=== PATIENT | male | born 1955 | race Caucasian/White ===

== ENCOUNTER → 2018-03-27 10:43 | Outpatient (CLI) | payer MEDICARE, MEDICAID, SELFPAY ==
[2018-03-27 12:56] LABS: Eosinophil# 0.27 X10^3/uL; RBC Distribution Width CV 12.7 % (11.6-14.6); RBC Distribution Width SD 40.5 fl (35.1-43.9)
[2018-03-27 12:57] LABS: Absolute Lymphocyte Count 2.68 X10^3/ul (0.83-4.51); Absolute Neutrophil Count 4.8 X10^3/uL (2.0-7.7); Basophil# 0.04 X10^3/uL; Basophil% 0.5 % (0-1); Eosinophils% 3.1 % (0-5); Hematocrit 46.2 % (40-54); Hemoglobin 15.5 g/dl (13.0-16.5); Lymphocyte # 2.68 X10^3/ul (4.0); Lymphocyte % 30.8 % (19-41); Mean Corp Hgb Conc 33.5 g/gl (32-36); Mean Corpuscular Hgb 29.1 pg (27.0-32.0); Mean Corpuscular Volume 86.8 fL (80-94); Mean Platelet Vol. 9.6 fl (6.2-12.0); Monocyte# 0.91 X10^3/uL; Monocyte% 10.5 % (0-10); Neutrophil # 4.75 X10^3/uL (2.7-7.7); Neutrophil % 54.6 % (47-70); POSITIVE COUNT NO; POSITIVE DIFFERENTIAL NO; POSITIVE MORPHOLOGY NO; Platelet Count 243 K/mm3 (150-450); Red Blood Count 5.32 M/mm3 (4.6-6.2); White Blood Count 8.7 K/mm3 (4.4-11.0)
[2018-03-27 13:22] LABS: ALB/GLOB Ratio 0.8 RATIO (0.9-2.4); AST(SGOT) 19 U/L (15-37); Alanine Aminotransfer ALT/SGPT 46 U/L (16-61); Albumin, Serum 3.5 g/dL (3.2-5.0); Alkaline Phosphatase 118 U/L (45-117); Anion Gap 8 (5-15); BUN 17 mg/dL (7-18); BUN/Creat Ratio 17.6 RATIO (10-20); Calcium,Total 8.8 mg/dL (8.5-10.1); Chloride 105 mmol/L (98-107); Creatinine, Serum 0.97 mg/dL (0.70-1.30); EST Glomerular Filtration Rate 83 mL/min (>60); Est Glom Filt Rate - Afr Amer 100 mL/min (>60); Globulin 4.3 g/dL (2.2-4.2); Glucose 189 mg/dL (74-106); PSA,Total - Annual Screen 0.55 ng/mL (0.00-4.00); Potassium 4.6 mmol/L (3.5-5.1); Protein, Total 7.8 g/dL (6.4-8.2); Sodium Level 136 mmol/L (136-145); Thyroid Stim Hormone (TSH) 3.61 uIU/mL (0.358-3.74)
[2018-03-27 16:58] LABS: Hemoglobin A1c 7.7 % (4.2-6.3)
== END ==
PROVIDERS: Family Provider Family Medicine Geriatric Medicine; PCP Family Medicine Geriatric Medicine; Visit Provider Family Medicine Geriatric Medicine
DX: E88.81 Metabolic syndrome and other insulin resistance (principal); R53.83 Other fatigue; Z12.5 Encounter for screening for malignant neoplasm of prostate
CPT/HCPCS: 36415; 80053; 83036; 84153; 84443; 85025; G0103

== ENCOUNTER 2018-05-23 09:54 | Outpatient (RCR) | payer MEDICARE, MEDICAID, SELFPAY | END 2018-05-23 23:59 | LOC: DC 09:54 | PROVIDERS: Family Provider Family Medicine Geriatric Medicine; PCP Family Medicine Geriatric Medicine; Visit Provider Family Medicine Geriatric Medicine | DX: E11.65 Type 2 diabetes mellitus with hyperglycemia (principal) | CPT/HCPCS: 97802 ==

== ENCOUNTER 2018-06-06 10:47 | Outpatient (RCR) | payer MEDICARE, MEDICAID, SELFPAY | END 2018-06-06 23:59 | disposition home or self-care (01) | LOC: DC 10:47 | PROVIDERS: Family Provider Family Medicine Geriatric Medicine; PCP Family Medicine Geriatric Medicine; Visit Provider Family Medicine Geriatric Medicine | DX: E11.65 Type 2 diabetes mellitus with hyperglycemia (principal); Z71.3 Dietary counseling and surveillance | CPT/HCPCS: G0108 ==

== ENCOUNTER → 2018-06-27 11:57 | Outpatient (CLI) | payer MEDICARE, MEDICAID, SELFPAY ==
[2018-06-27 14:29] LABS: Absolute Neutrophil Count 4.2 X10^3/uL (2.0-7.7); Basophil# 0.06 X10^3/uL; Basophil% 0.6 % (0-1); Eosinophil# 0.34 X10^3/uL; Eosinophils% 3.5 % (0-5); Hematocrit 44.6 % (40-54); Lymphocyte % 40.9 % (19-41); Mean Corp Hgb Conc 33.6 g/gl (32-36); Mean Corpuscular Hgb 29.5 pg (27.0-32.0); Mean Corpuscular Volume 87.6 fL (80-94); Mean Platelet Vol. 9.7 fl (6.2-12.0); Monocyte# 1.11 X10^3/uL; Monocyte% 11.4 % (0-10); Neutrophil # 4.23 X10^3/uL (2.7-7.7); Neutrophil % 43.3 % (47-70); Platelet Count 264 K/mm3 (150-450); RBC Distribution Width CV 12.8 % (11.6-14.6); RBC Distribution Width SD 41.3 fl (35.1-43.9); Red Blood Count 5.09 M/mm3 (4.6-6.2); White Blood Count 9.8 K/mm3 (4.4-11.0)
[2018-06-27 14:30] LABS: POSITIVE COUNT NO; POSITIVE DIFFERENTIAL NO; POSITIVE MORPHOLOGY NO
[2018-06-27 15:03] LABS: ALB/GLOB Ratio 0.9 RATIO (0.9-2.4); AST(SGOT) 24 U/L (15-37); Alanine Aminotransfer ALT/SGPT 42 U/L (16-61); Albumin, Serum 3.6 g/dL (3.2-5.0); Alkaline Phosphatase 101 U/L (45-117); Anion Gap 9 (5-15); BUN 16 mg/dL (7-18); BUN/Creat Ratio 16.5 RATIO (10-20); Calcium,Total 8.8 mg/dL (8.5-10.1); Chloride 105 mmol/L (98-107); Creatinine, Serum 0.97 mg/dL (0.70-1.30); EST Glomerular Filtration Rate 83 mL/min (>60); Est Glom Filt Rate - Afr Amer 100 mL/min (>60); Globulin 3.9 g/dL (2.2-4.2); Glucose 87 mg/dL (74-106); Potassium 4.4 mmol/L (3.5-5.1); Protein, Total 7.5 g/dL (6.4-8.2); Sodium Level 140 mmol/L (136-145)
== END ==
PROVIDERS: Family Provider Family Medicine Geriatric Medicine; PCP Family Medicine Geriatric Medicine; Visit Provider Family Medicine Geriatric Medicine
DX: R53.83 Other fatigue (principal)
CPT/HCPCS: 36415; 80053; 84443; 85025

== ENCOUNTER → 2018-08-20 10:20 | Outpatient (CLI) | payer MEDICARE, MEDICAID, SELFPAY ==
[2018-08-20 13:12] LABS: Thyroid Stim Hormone (TSH) 3.32 uIU/mL (0.358-3.74)
== END ==
PROVIDERS: Family Provider Family Medicine Geriatric Medicine; PCP Family Medicine Geriatric Medicine; Visit Provider Family Medicine Geriatric Medicine
DX: E03.9 Hypothyroidism, unspecified (principal)
CPT/HCPCS: 36415; 84443

== ENCOUNTER → 2018-09-30 10:11 | Outpatient (CLI) | payer MEDICARE, MEDICAID, SELFPAY ==
[2018-09-30 12:23] LABS: Absolute Lymphocyte Count 2.43 X10^3/ul (0.83-4.51); Absolute Neutrophil Count 4.7 X10^3/uL (2.0-7.7); Basophil# 0.05 X10^3/uL; Basophil% 0.6 % (0-1); Eosinophil# 0.24 X10^3/uL; Eosinophils% 2.8 % (0-5); Hematocrit 45.6 % (40-54); Hemoglobin 15.3 g/dl (13.0-16.5); Lymphocyte # 2.43 X10^3/ul (4.0); Lymphocyte % 28.3 % (19-41); Mean Corp Hgb Conc 33.6 g/gl (32-36); Mean Corpuscular Hgb 28.5 pg (27.0-32.0); Mean Corpuscular Volume 84.9 fL (80-94); Monocyte% 12.8 % (0-10); Neutrophil # 4.73 X10^3/uL (2.7-7.7); Neutrophil % 55.2 % (47-70); Platelet Count 261 K/mm3 (150-450); RBC Distribution Width CV 12.8 % (11.6-14.6); RBC Distribution Width SD 39.4 fl (35.1-43.9); Red Blood Count 5.37 M/mm3 (4.6-6.2); White Blood Count 8.6 K/mm3 (4.4-11.0)
[2018-09-30 12:33] LABS: POSITIVE COUNT NO; POSITIVE DIFFERENTIAL NO; POSITIVE MORPHOLOGY NO
[2018-09-30 12:54] LABS: ALB/GLOB Ratio 0.8 RATIO (0.9-2.4); AST(SGOT) 20 U/L (15-37); Alanine Aminotransfer ALT/SGPT 49 U/L (16-61); Albumin, Serum 3.3 g/dL (3.2-5.0); Alkaline Phosphatase 121 U/L (45-117); Anion Gap 8 (5-15); BUN 16 mg/dL (7-18); BUN/Creat Ratio 15.2 RATIO (10-20); Chloride 103 mmol/L (98-107); Creatinine, Serum 1.05 mg/dL (0.70-1.30); EST Glomerular Filtration Rate 75 mL/min (>60); Est Glom Filt Rate - Afr Amer 91 mL/min (>60); Glucose 181 mg/dL (74-106); Potassium 4.3 mmol/L (3.5-5.1); Protein, Total 7.3 g/dL (6.4-8.2); Sodium Level 137 mmol/L (136-145); Thyroid Stim Hormone (TSH) 4.29 uIU/mL (0.358-3.74)
== END ==
PROVIDERS: Family Provider Family Medicine Geriatric Medicine; PCP Family Medicine Geriatric Medicine; Visit Provider Family Medicine Geriatric Medicine
DX: E11.65 Type 2 diabetes mellitus with hyperglycemia (principal); R53.83 Other fatigue
CPT/HCPCS: 36415; 80053; 84443; 85025

== ENCOUNTER → 2018-11-14 09:34 | Outpatient (CLI) | payer MEDICARE, MEDICAID, SELFPAY ==
[2018-11-14 12:57] LABS: Thyroid Stim Hormone (TSH) 2.62 uIU/mL (0.358-3.74)
== END ==
PROVIDERS: Family Provider Family Medicine Geriatric Medicine; PCP Family Medicine Geriatric Medicine; Visit Provider Family Medicine Geriatric Medicine
DX: E03.9 Hypothyroidism, unspecified (principal)
CPT/HCPCS: 36415; 84443

== ENCOUNTER → 2019-01-27 09:41 | Outpatient (CLI) | payer MEDICARE, MEDICAID, SELFPAY ==
--- NOTE | 2019-01-27 09:55 | RAD_ITS ---
HISTORY: Fecal impaction. Abdominal distention. 3 views of the abdomen. No comparison imaging of any kind. Findings: Bowel gas pattern is normal. There is some stool and gas within the abdomen, but it is well within normal limits. Stomach is distended slightly with gas. Lung bases are clear. Thoracic spondylosis. Lumbar spondylosis. Hip arthritis. No free air. No pneumatosis. RAD/Abdomen Single View IMPRESSION: No fecal impaction. No evidence of constipation. at [id number] Reported and signed by: Masoud Recinos MD Electronically Signed: Masoud Recinos MD at 23:34 EST Tel , Service support ,
== END ==
PROVIDERS: Family Provider Family Medicine Geriatric Medicine; PCP Family Medicine Geriatric Medicine; Referring Provider Family Medicine Geriatric Medicine; Visit Provider Family Medicine Geriatric Medicine
DX: K56.41 Fecal impaction (principal); B95.62 Methicillin resistant Staphylococcus aureus infection as the cause of diseases classified elsewhere
CPT/HCPCS: 74018; 87070; 87186; 87205; 87640

== ENCOUNTER → 2019-01-27 17:02 | Outpatient (CLI) | payer MEDICARE, MEDICAID, SELFPAY ==
[2019-01-27 22:38] LABS: M R Staph aureus DNA By PCR Negative (Negative); Probe Check PASS; Specimen Processing Control PASS; Staph aureus DNA By PCR NEGATIVE (Negative)
== END ==
PROVIDERS: Family Provider Family Medicine Geriatric Medicine; PCP Family Medicine Geriatric Medicine; Visit Provider Family Medicine Geriatric Medicine
DX: B95.62 Methicillin resistant Staphylococcus aureus infection as the cause of diseases classified elsewhere (principal)
CPT/HCPCS: 87070; 87205; 87640

== ENCOUNTER → 2019-04-03 11:05 | Outpatient (CLI) | payer MEDICARE, MEDICAID, SELFPAY ==
[2019-04-03 12:46] LABS: Absolute Lymphocyte Count 2.68 X10^3/uL (0.83-4.51); Basophil# 0.06 X10^3/uL; Basophil% 0.7 % (0-1); Eosinophil# 0.27 X10^3/uL; Hematocrit 44.5 % (40-54); Lymphocyte # 2.68 X10^3/ul (4.0); Lymphocyte % 30.1 % (19-41); Mean Corp Hgb Conc 33.7 g/dL (32-36); Mean Corpuscular Hgb 28.6 pg (27.0-32.0); Mean Corpuscular Volume 84.8 fL (80-94); Mean Platelet Vol. 9.3 fl (6.2-12.0); Monocyte# 0.89 X10^3/uL; NRBC Flagged by Analyzer 0 % (0-5); Neutrophil # 4.97 X10^3/uL (2.7-7.7); Platelet Count 297 K/mm3 (150-450); RBC Distribution Width CV 12.2 % (11.6-14.6); RBC Distribution Width SD 37.2 fl (35.1-43.9); Red Blood Count 5.25 M/mm3 (4.6-6.2); White Blood Count 8.9 K/mm3 (4.4-11.0)
[2019-04-03 12:56] LABS: Vitamin D,25 Hydroxy 28.8 ng/mL (29.95-100.01)
[2019-04-03 13:01] LABS: ALB/GLOB Ratio 0.9 RATIO (0.9-2.4); AST(SGOT) 14 U/L (15-37); Alanine Aminotransfer ALT/SGPT 43 U/L (16-61); Albumin, Serum 3.6 g/dL (3.2-5.0); Alkaline Phosphatase 91 U/L (45-117); Anion Gap 6 (5-15); BUN 13 mg/dL (7-18); BUN/Creat Ratio 13.2 RATIO (10-20); Chloride 97 mmol/L (98-107); Creatinine, Serum 0.98 mg/dL (0.70-1.30); EST Glomerular Filtration Rate 81 mL/min (>60); Est Glom Filt Rate - Afr Amer 98 mL/min (>60); Globulin 3.9 g/dL (2.2-4.2); Glucose 144 mg/dL (74-106); PSA,Total - Annual Screen 0.85 ng/mL (0.00-4.00); Potassium 4.1 mmol/L (3.5-5.1); Protein, Total 7.5 g/dL (6.4-8.2); Sodium Level 130 mmol/L (136-145); Thyroid Stim Hormone (TSH) 2.26 uIU/mL (0.358-3.74)
== END ==
PROVIDERS: Family Provider Family Medicine Geriatric Medicine; PCP Family Medicine Geriatric Medicine; Visit Provider Family Medicine Geriatric Medicine
DX: E11.9 Type 2 diabetes mellitus without complications (principal); I10 Essential (primary) hypertension; E55.9 Vitamin D deficiency, unspecified; Z12.5 Encounter for screening for malignant neoplasm of prostate
CPT/HCPCS: 36415; 80053; 82306; 84153; 84443; 85025; G0103

== ENCOUNTER → 2019-05-19 | Outpatient (CLI) | payer MEDICARE, MEDICAID, SELFPAY ==
[2019-05-19 20:05] LABS: M R Staph aureus DNA By PCR Negative (Negative); Probe Check PASS; Specimen Processing Control PASS; Staph aureus DNA By PCR NEGATIVE (Negative)
== END | disposition home or self-care (01) ==
PROVIDERS: PCP Family Medicine Geriatric Medicine; Referring Provider Podiatrist; Visit Provider Podiatrist
DX: L60.0 Ingrowing nail (principal)
CPT/HCPCS: 87070; 87075; 87077; 87186; 87205; 87640

== ENCOUNTER → 2019-10-02 08:57 | Outpatient (CLI) | payer MEDICARE, MEDICAID, SELFPAY ==
[2019-10-02 12:02] LABS: Absolute Lymphocyte Count 2.66 X10^3/uL (0.83-4.51); Absolute Neutrophil Count 6.7 X10^3/uL (2.0-7.7); Basophil# 0.07 X10^3/uL; Basophil% 0.7 % (0-1); Eosinophil# 0.25 X10^3/uL; Eosinophils% 2.4 % (0-5); Hematocrit 46.2 % (40-54); Hemoglobin 15.2 g/dL (13.0-16.5); Lymphocyte # 2.66 X10^3/ul (4.0); Lymphocyte % 25.1 % (19-41); Mean Corp Hgb Conc 32.9 g/dL (32-36); Mean Corpuscular Hgb 28.9 pg (27.0-32.0); Mean Corpuscular Volume 87.8 fL (80-94); Mean Platelet Vol. 9.3 fl (6.2-12.0); Monocyte# 0.91 X10^3/uL; Monocyte% 8.6 % (0-10); NRBC Flagged by Analyzer 0 % (0-5); Neutrophil # 6.65 X10^3/uL (2.7-7.7); Neutrophil % 62.7 % (47-70); Platelet Count 327 K/mm3 (150-450); RBC Distribution Width CV 12.2 % (11.6-14.6); RBC Distribution Width SD 38.9 fl (35.1-43.9); Red Blood Count 5.26 M/mm3 (4.6-6.2); White Blood Count 10.6 K/mm3 (4.4-11.0)
[2019-10-02 12:26] LABS: ALB/GLOB Ratio 0.9 RATIO (0.9-2.4); AST(SGOT) 13 U/L (15-37); Alanine Aminotransfer ALT/SGPT 34 U/L (16-61); Albumin, Serum 3.5 g/dL (3.2-5.0); Alkaline Phosphatase 90 U/L (45-117); Anion Gap 7 (5-15); BUN 14 mg/dL (7-18); BUN/Creat Ratio 13.9 RATIO (10-20); Calcium,Total 8.9 mg/dL (8.5-10.1); Chloride 99 mmol/L (98-107); Creatinine, Serum 1.01 mg/dL (0.70-1.30); EST Glomerular Filtration Rate 79 mL/min (>60); Est Glom Filt Rate - Afr Amer 95 mL/min (>60); Globulin 3.8 g/dL (2.2-4.2); Glucose 157 mg/dL (74-106); Potassium 4.1 mmol/L (3.5-5.1); Protein, Total 7.3 g/dL (6.4-8.2); Sodium Level 133 mmol/L (136-145); Thyroid Stim Hormone (TSH) 1.78 uIU/mL (0.358-3.74)
[2019-10-02 12:54] LABS: Vitamin D,25 Hydroxy 34.5 ng/mL
== END ==
PROVIDERS: PCP Family Medicine Geriatric Medicine; Visit Provider Family Medicine Geriatric Medicine
DX: E11.65 Type 2 diabetes mellitus with hyperglycemia (principal); I10 Essential (primary) hypertension; E55.9 Vitamin D deficiency, unspecified
CPT/HCPCS: 36415; 80053; 82306; 84443; 85025

== ENCOUNTER → 2019-10-22 10:29 | Outpatient (CLI) | payer MEDICARE, MEDICAID, SELFPAY ==
--- NOTE | 2019-10-22 10:33 | RAD_ITS ---
STUDY: X-RAY - ABDOMEN/PELVIS REASON FOR EXAM: Male, 64 years old. FECAL IMPACATION, DISTENTION TECHNIQUE: AP supine and upright views of the abdomen and pelvis. COMPARISON: Prior single view abdomen of 01/27/2019 FINDINGS: The stomach is nondistended. Mild increased small bowel gas. Substantial stool present throughout the colon and present to the level of the rectum. There is no demonstrated free abdominal air. Negative for organomegaly. Multiple phleboliths of the pelvis. Normal visualized osseous structures. RAD/Abd Inc Decub and/or Erect IMPRESSION: Substantial stool present throughout the colon and present to the level of the rectum without other acute abdominal or pelvic findings. Electronically Signed: Dorita Montoya MD at 17:08 EDT , Service support ,
== END ==
PROVIDERS: PCP Family Medicine Geriatric Medicine; Referring Provider Family Medicine Geriatric Medicine; Visit Provider Family Medicine Geriatric Medicine
DX: K56.41 Fecal impaction (principal)
CPT/HCPCS: 74019

== ENCOUNTER → 2019-10-30 09:52 | Outpatient (CLI) | payer MEDICARE, MEDICAID, SELFPAY ==
--- NOTE | 2019-10-30 09:56 | US_ITS ---
STUDY: ABDOMINAL ULTRASOUND - RIGHT UPPER QUADRANT REASON FOR VISIT: Male, 64 years old RUQ PAIN TECHNIQUE: Ultrasound evaluation of the right upper quadrant was performed with real-time and static robin-scale imaging. TECHNICAL QUALITY: Limited. Examination limited due to a combination of factors including obesity and bowel gas. COMPARISON: None. FINDINGS: Liver: The liver measures 17.1 cm. There is increased echogenicity consistent with mild degree of fatty infiltration. The bile ducts are within normal limits. There is hepatic color flow. The direction of portal flow is hepatopetal. There is no demonstrated mass lesion. Gallbladder: Normal distended gallbladder. The gallbladder wall measures 2.4 mm. There is a negative sonographic Theodore''s sign. There is no pericholecystic fluid. There are no gallstones. Common Bile Duct (C.B.D.): The common bile duct measures 3.1 mm. Pancreas: There is nonvisualization of the pancreas due to overlying bowel gas. Right Kidney: Normal size of the right kidney. The right kidney measures 11.5 cm x 5.6 cm x 6.9 cm. Normal renal cortex. The right cortex measures 1.2 cm. There is no demonstrated renal mass or cyst. There is no right hydronephrosis. US/Abdomen Limited IMPRESSION: Fatty infiltration of the liver. Electronically Signed: Jd Thompson, at 12:35 EDT , Service support ,
== END ==
PROVIDERS: PCP Family Medicine Geriatric Medicine; Referring Provider Family Medicine Geriatric Medicine; Visit Provider Family Medicine Geriatric Medicine
DX: R10.9 Unspecified abdominal pain (principal)
CPT/HCPCS: 76705

== ENCOUNTER → 2019-12-17 11:58 | Outpatient (CLI) | payer MEDICARE, MEDICAID, SELFPAY ==
[2019-12-02 11:09] VITALS: BMI 36.4
--- NOTE | 2019-12-17 12:10 | RAD_ITS ---
STUDY: X-RAY - ABDOMEN/PELVIS REASON FOR EXAM: Male, 64 years old. diarrhea per patient''s caregiver TECHNIQUE: AP supine and upright views of the abdomen and pelvis. COMPARISON: 10/22/2019 FINDINGS: Normal visualized lung bases. There is a small amount of gas within a redundant colon. There is no demonstrated free abdominal air. The visualized liver, spleen and kidneys are grossly normal in size and morphology. Normal soft tissue structures. There are degenerative changes of the visualized thoracolumbar spine. RAD/Abd Inc Decub and/or Erect IMPRESSION: Small amount of gas within a redundant colon. There is no evidence of ileus, obstruction, or free intraperitoneal air. Electronically Signed: Clyde London MD at 22:31 EDT , Service support ,
== END ==
PROVIDERS: PCP Family Medicine Geriatric Medicine; Referring Provider Family Medicine Geriatric Medicine; Visit Provider Family Medicine Geriatric Medicine
DX: R19.7 Diarrhea, unspecified (principal)
CPT/HCPCS: 74019

== ENCOUNTER → 2019-12-24 09:48 | Outpatient (CLI) | payer MEDICARE, MEDICAID, SELFPAY ==
[2019-12-02 11:09] VITALS: BMI 36.4
--- NOTE | 2019-12-24 09:49 | MRI_ITS ---
STUDY: MRI BRAIN WITH AND WITHOUT CONTRAST REASON FOR EXAM: Male, 64 years old. seizure -- patient is autistic, hx of seizures with no recent seizures TECHNIQUE: Standardized multiplanar fat and water weighted pulse sequences were obtained. IV dotarem 19ml was administered for the contrast portion of the examination. COMPARISON: None. FINDINGS: Normal size of the ventricles and extra-axial spaces for the patient''s age. Normal white matter tracts of the supratentorial brain. Normal bilateral basal ganglia. Normal thalami. There is no extra-axial fluid accumulation. Normal flow voids within the major intracranial circulation suggesting patency by spin echo criteria. Normal venous enhancement. There is no enhancing intra-axial or extra-axial abnormality. Normal sella turcica, pituitary gland, infundibular stalk, optic chiasm and hypothalamus. Normal tectal plate and pineal gland. Normal midbrain, mae and medulla. Normal cerebellum. Normal basal cisterns. Normal bilateral temporal bones. Normal bilateral internal auditory canals. No demonstrated orbital abnormality, within the constraints of a routine brain study. Normal visualized paranasal sinuses. Normal calvarium and skull base. Normal visualized soft tissue structures. Normal visualized upper cervical spine. MRI/Brain W/WO Contrast IMPRESSION: Normal unenhanced and enhanced MRI of the brain. Electronically Signed: Yuan Jarvis, at 12:05 EDT Tel , Service support ,
[2019-12-24 11:05] LABS: CREATININE FINGERSTICK 0.8 mg/dL (0.70-1.30); EGFR FINGERSTICK > 60.0000 mL/min (>60)
== END ==
PROVIDERS: PCP Family Medicine Geriatric Medicine; Referring Provider Psychiatry & Neurology Neurology; Visit Provider Psychiatry & Neurology Neurology
DX: G40.A09 Absence epileptic syndrome, not intractable, without status epilepticus (principal)
CPT/HCPCS: 70553; A9575

== ENCOUNTER → 2020-01-09 06:53 | Outpatient (CLI) | payer MEDICARE, MEDICAID, SELFPAY ==
[2019-12-02 11:09] VITALS: BMI 36.4
--- NOTE | 2020-01-09 10:20 | TELEMED_ITS ---
[facility] has confirmed receipt of a request for visit. This document confirms receipt of the order initiating the consult. To find the results of the consultation, please view the patient's reports for the scanned Telemed Consult.
== END ==
PROVIDERS: PCP Family Medicine Geriatric Medicine; Referring Provider Psychiatry & Neurology Neurology; Visit Provider Psychiatry & Neurology Neurology
DX: G40.909 Epilepsy, unspecified, not intractable, without status epilepticus (principal); G40.A09 Absence epileptic syndrome, not intractable, without status epilepticus
CPT/HCPCS: 95819

== ENCOUNTER → 2020-02-11 08:45 | Outpatient (CLI) | payer MEDICARE, MEDICAID, SELFPAY ==
[2020-02-11 10:47] LABS: Vitamin B12 274 pg/mL (211-911)
[2020-02-11 10:51] LABS: Anion Gap 5 (5-15); BUN 13 mg/dL (7-18); BUN/Creat Ratio 12.6 RATIO (10-20); Calcium,Total 9.5 mg/dL (8.5-10.1); Chloride 98 mmol/L (98-107); Creatinine, Serum 1.03 mg/dL (0.70-1.30); EST Glomerular Filtration Rate 77 mL/min (>60); Est Glom Filt Rate - Afr Amer 93 mL/min (>60); Glucose 123 mg/dL (74-106); Potassium 4.3 mmol/L (3.5-5.1); Sodium Level 131 mmol/L (136-145)
== END ==
PROVIDERS: PCP Family Medicine Geriatric Medicine; Referring Provider Psychiatry & Neurology Neurology; Visit Provider Psychiatry & Neurology Neurology
DX: G40.A09 Absence epileptic syndrome, not intractable, without status epilepticus (principal)
CPT/HCPCS: 36415; 80048; 80177; 80184; 82140; 82607

== ENCOUNTER → 2020-04-07 11:28 | Outpatient (CLI) | payer MEDICARE, MEDICAID, SELFPAY ==
[2020-04-07 12:13] LABS: Absolute Neutrophil Count 6.9 X10^3/uL (2.0-7.7); Basophil# 0.06 X10^3/uL; Basophil% 0.5 % (0-1); Eosinophil# 0.17 X10^3/uL; Eosinophils% 1.5 % (0-5); Hematocrit 47.8 % (40-54); Hemoglobin 15.6 g/dL (13.0-16.5); Lymphocyte % 27.4 % (19-41); Mean Corp Hgb Conc 32.6 g/dL (32-36); Mean Corpuscular Hgb 28.3 pg (27.0-32.0); Mean Corpuscular Volume 86.6 fL (80-94); Mean Platelet Vol. 9.2 fl (6.2-12.0); Monocyte# 1.12 X10^3/uL; Monocyte% 9.9 % (0-10); NRBC Flagged by Analyzer 0 % (0-5); Neutrophil # 6.85 X10^3/uL (2.7-7.7); Neutrophil % 60.4 % (47-70); Platelet Count 337 K/mm3 (150-450); RBC Distribution Width CV 12.3 % (11.6-14.6); RBC Distribution Width SD 39.4 fl (35.1-43.9); Red Blood Count 5.52 M/mm3 (4.6-6.2); White Blood Count 11.3 K/mm3 (4.4-11.0)
[2020-04-07 12:38] LABS: ALB/GLOB Ratio 0.9 RATIO (0.9-2.4); AST(SGOT) 14 U/L (15-37); Alanine Aminotransfer ALT/SGPT 37 U/L (16-61); Albumin, Serum 3.7 g/dL (3.2-5.0); Alkaline Phosphatase 106 U/L (45-117); Anion Gap 5 (5-15); BUN 11 mg/dL (7-18); Calcium,Total 8.9 mg/dL (8.5-10.1); Chloride 100 mmol/L (98-107); EST Glomerular Filtration Rate 79 mL/min (>60); Est Glom Filt Rate - Afr Amer 96 mL/min (>60); Globulin 3.9 g/dL (2.2-4.2); Glucose 106 mg/dL (74-106); PSA,Total - Annual Screen 0.77 ng/mL (0.00-4.00); Protein, Total 7.6 g/dL (6.4-8.2); Sodium Level 134 mmol/L (136-145); Thyroid Stim Hormone (TSH) 2.44 uIU/mL (0.358-3.74)
[2020-04-07 12:48] LABS: Vitamin D,25 Hydroxy 20.4 ng/mL
== END ==
PROVIDERS: PCP Family Medicine Geriatric Medicine; Visit Provider Family Medicine Geriatric Medicine
DX: E11.9 Type 2 diabetes mellitus without complications (principal); I10 Essential (primary) hypertension; E55.9 Vitamin D deficiency, unspecified; Z12.5 Encounter for screening for malignant neoplasm of prostate
CPT/HCPCS: 36415; 80053; 82306; 84153; 84443; 85025; G0103

== ENCOUNTER → 2020-05-18 08:34 | Outpatient (CLI) | payer MEDICARE, MEDICAID, SELFPAY ==
[2020-05-18 10:28] LABS: Vitamin B12 466 pg/mL (211-911)
== END ==
PROVIDERS: PCP Family Medicine Geriatric Medicine; Referring Provider Psychiatry & Neurology Neurology; Visit Provider Psychiatry & Neurology Neurology
DX: G40.909 Epilepsy, unspecified, not intractable, without status epilepticus (principal)
CPT/HCPCS: 36415; 82607

== ENCOUNTER → 2020-09-16 07:15 | Outpatient (CLI) | payer MEDICARE, MEDICAID, SELFPAY ==
[2020-08-03 13:22] VITALS: BMI 36.4
[2020-09-19 08:20] LABS: KEPPRA (LEVETIRACETAM) 13.6 ug/mL (10.0-40.0)
== END ==
PROVIDERS: PCP Family Medicine Geriatric Medicine; Referring Provider Psychiatry & Neurology Neurology; Visit Provider Psychiatry & Neurology Neurology
DX: G40.909 Epilepsy, unspecified, not intractable, without status epilepticus (principal)
CPT/HCPCS: 36415; 80177; 80184

== ENCOUNTER → 2020-10-13 11:09 | Outpatient (CLI) | payer MEDICARE, MEDICAID, SELFPAY ==
[2020-08-03 13:22] VITALS: BMI 36.4
[2020-10-13 11:55] LABS: Absolute Lymphocyte Count 2.76 X10^3/uL (0.83-4.51); Absolute Neutrophil Count 6.6 X10^3/uL (2.0-7.7); Basophil# 0.06 X10^3/uL; Basophil% 0.6 % (0-1); Eosinophil# 0.27 X10^3/uL; Eosinophils% 2.5 % (0-5); Hematocrit 46.2 % (40-54); Hemoglobin 15.7 g/dL (13.0-16.5); Lymphocyte # 2.76 X10^3/ul (0.83-4.51); Lymphocyte % 25.6 % (19-41); Mean Corpuscular Hgb 29.3 pg (27.0-32.0); Mean Corpuscular Volume 86.2 fL (80-94); Mean Platelet Vol. 9.2 fl (6.2-12.0); Monocyte# 1.03 X10^3/uL; Monocyte% 9.5 % (0-10); NRBC Flagged by Analyzer 0 % (0-5); Neutrophil # 6.63 X10^3/uL (2.7-7.7); Neutrophil % 61.4 % (47-70); Platelet Count 360 K/mm3 (150-450); RBC Distribution Width CV 12.1 % (11.6-14.6); RBC Distribution Width SD 38.2 fl (35.1-43.9); Red Blood Count 5.36 M/mm3 (4.6-6.2); White Blood Count 10.8 K/mm3 (4.4-11.0)
[2020-10-13 12:10] LABS: Vitamin D,25 Hydroxy 82.4 ng/mL
[2020-10-13 12:22] LABS: BUN 10 mg/dL (7-18); Creatinine, Serum 0.88 mg/dL (0.70-1.30); Glucose 84 mg/dL (74-106)
[2020-10-13 12:23] LABS: AST(SGOT) 14 U/L (15-37); Alanine Aminotransfer ALT/SGPT 37 U/L (16-61); Albumin, Serum 3.7 g/dL (3.2-5.0); Alkaline Phosphatase 114 U/L (45-117); Anion Gap 7 (5-15); BUN/Creat Ratio 11.3 RATIO (10-20); Calcium,Total 8.9 mg/dL (8.5-10.1); Chloride 98 mmol/L (98-107); EST Glomerular Filtration Rate 91 mL/min (>60); Est Glom Filt Rate - Afr Amer 111 mL/min (>60); Globulin 3.6 g/dL (2.2-4.2); Potassium 4.4 mmol/L (3.5-5.1); Protein, Total 7.3 g/dL (6.4-8.2); Sodium Level 134 mmol/L (136-145); Thyroid Stim Hormone (TSH) 2.03 uIU/mL (0.358-3.74)
== END ==
PROVIDERS: PCP Family Medicine Geriatric Medicine; Visit Provider Family Medicine Geriatric Medicine
DX: E11.65 Type 2 diabetes mellitus with hyperglycemia (principal); I10 Essential (primary) hypertension; E55.9 Vitamin D deficiency, unspecified
CPT/HCPCS: 36415; 80053; 82306; 84443; 85025

== ENCOUNTER 2021-04-13 11:22 | Outpatient (CLI) | payer MEDICARE, MEDICAID, SELFPAY ==
[2021-04-13 12:03] LABS: Absolute Lymphocyte Count 2.41 X10^3/uL (0.83-4.51); Absolute Neutrophil Count 8.7 X10^3/uL (2.0-7.7); Basophil# 0.07 X10^3/uL; Basophil% 0.6 % (0-1); Eosinophil# 0.22 X10^3/uL; Eosinophils% 1.8 % (0-5); Hematocrit 43.8 % (40-54); Hemoglobin 15.2 g/dL (13.0-16.5); Lymphocyte # 2.41 X10^3/ul (0.83-4.51); Lymphocyte % 19.2 % (19-41); Mean Corp Hgb Conc 34.7 g/dL (32-36); Mean Corpuscular Hgb 29.2 pg (27.0-32.0); Mean Corpuscular Volume 84.2 fL (80-94); Mean Platelet Vol. 9.1 fl (6.2-12.0); Monocyte# 1.11 X10^3/uL; Monocyte% 8.9 % (0-10); NRBC Flagged by Analyzer 0 % (0-5); Neutrophil # 8.68 X10^3/uL (2.7-7.7); Neutrophil % 69.2 % (47-70); Platelet Count 328 K/mm3 (150-450); RBC Distribution Width SD 36.4 fl (35.1-43.9); White Blood Count 12.5 K/mm3 (4.4-11.0)
[2021-04-13 12:21] LABS: Vitamin D,25 Hydroxy 64.2 ng/mL
[2021-04-13 12:28] LABS: ALB/GLOB Ratio 0.9 RATIO (0.9-2.4); AST(SGOT) 15 U/L (15-37); Alanine Aminotransfer ALT/SGPT 29 U/L (16-61); Albumin, Serum 3.6 g/dL (3.2-5.0); Alkaline Phosphatase 107 U/L (45-117); Anion Gap 9 (5-15); BUN 12 mg/dL (7-18); BUN/Creat Ratio 13.2 RATIO (10-20); Calcium,Total 9.2 mg/dL (8.5-10.1); Chloride 98 mmol/L (98-107); Creatinine, Serum 0.91 mg/dL (0.70-1.30); EST Glomerular Filtration Rate 89 mL/min (>60); Est Glom Filt Rate - Afr Amer 107 mL/min (>60); Globulin 3.8 g/dL (2.2-4.2); Glucose 81 mg/dL (74-106); Potassium 4.4 mmol/L (3.5-5.1); Protein, Total 7.4 g/dL (6.4-8.2); Sodium Level 131 mmol/L (136-145); Thyroid Stim Hormone (TSH) 2.58 uIU/mL (0.358-3.74)
== END 2021-04-13 23:59 | disposition short-term general hospital (02) ==
LOC: POLAB3 11:23
PROVIDERS: PCP Family Medicine Geriatric Medicine; Visit Provider Family Medicine Geriatric Medicine
DX: E11.65 Type 2 diabetes mellitus with hyperglycemia (principal); E55.9 Vitamin D deficiency, unspecified; I10 Essential (primary) hypertension; Z12.5 Encounter for screening for malignant neoplasm of prostate
CPT/HCPCS: 36415; 80053; 82306; 84153; 84443; 85025; G0103

== ENCOUNTER 2021-07-13 08:31 | Outpatient (CLI) | payer MEDICARE, MEDICAID, SELFPAY ==
[2021-07-13 10:36] LABS: Vitamin B12 645 pg/mL (211-911); Vitamin D,25 Hydroxy 66.8 ng/mL
[2021-07-13 10:41] LABS: Anion Gap 8 (5-15); BUN 11 mg/dL (7-18); BUN/Creat Ratio 11.7 RATIO (10-20); Calcium,Total 8.7 mg/dL (8.5-10.1); Chloride 97 mmol/L (98-107); Creatinine, Serum 0.94 mg/dL (0.70-1.30); EST Glomerular Filtration Rate 85 mL/min (>60); Est Glom Filt Rate - Afr Amer 102 mL/min (>60); Glucose 126 mg/dL (74-106); Sodium Level 133 mmol/L (136-145)
[2021-07-18 16:58] LABS: KEPPRA (LEVETIRACETAM) 8.8 ug/mL (10.0-40.0)
== END 2021-07-13 23:59 | disposition home or self-care (01) ==
PROVIDERS: PCP Family Medicine Geriatric Medicine; Referring Provider Nurse Practitioner Family; Visit Provider Nurse Practitioner Family
DX: G40.909 Epilepsy, unspecified, not intractable, without status epilepticus (principal); E55.9 Vitamin D deficiency, unspecified; E53.8 Deficiency of other specified B group vitamins
CPT/HCPCS: 36415; 80048; 80177; 80184; 82140; 82306; 82607

== ENCOUNTER → 2021-09-28 | Outpatient (CLI) | payer MEDICARE, MEDICAID, SELFPAY ==
[2021-09-28 08:17] LABS: Anion Gap 5 (5-15); BUN 15 mg/dL (7-18); BUN/Creat Ratio 14.6 RATIO (10-20); Calcium,Total 9.3 mg/dL (8.5-10.1); Chloride 99 mmol/L (98-107); Creatinine, Serum 1.03 mg/dL (0.70-1.30); EST Glomerular Filtration Rate 76 mL/min (>60); Est Glom Filt Rate - Afr Amer 93 mL/min (>60); Glucose 131 mg/dL (74-106); Potassium 4.3 mmol/L (3.5-5.1); Sodium Level 134 mmol/L (136-145)
[2021-10-03 13:18] LABS: KEPPRA (LEVETIRACETAM) 15.9 ug/mL (10.0-40.0)
== END | disposition home or self-care (01) ==
LOC: LAB 07:29
PROVIDERS: PCP Family Medicine Geriatric Medicine; Visit Provider Psychiatry & Neurology Neurology
DX: G40.909 Epilepsy, unspecified, not intractable, without status epilepticus (principal)
CPT/HCPCS: 36415; 80048; 80177; 82140

== ENCOUNTER → 2021-10-12 | Outpatient (CLI) | payer MEDICARE, MEDICAID, SELFPAY ==
[2021-10-12 12:49] LABS: Absolute Lymphocyte Count 2.74 X10^3/uL (0.83-4.51); Absolute Neutrophil Count 6.1 X10^3/uL (2.0-7.7); Basophil# 0.07 X10^3/uL; Basophil% 0.7 % (0-1); Eosinophil# 0.23 X10^3/uL; Eosinophils% 2.3 % (0-5); Hematocrit 45.4 % (40-54); Hemoglobin 15.5 g/dL (13.0-16.5); Lymphocyte # 2.74 X10^3/ul (0.83-4.51); Lymphocyte % 26.9 % (19-41); Mean Corp Hgb Conc 34.1 g/dL (32-36); Mean Corpuscular Hgb 29.8 pg (27.0-32.0); Mean Corpuscular Volume 87.1 fL (80-94); Mean Platelet Vol. 9.2 fl (6.2-12.0); Monocyte% 9.8 % (0-10); NRBC Flagged by Analyzer 0 % (0-5); Neutrophil % 59.9 % (47-70); Platelet Count 339 K/mm3 (150-450); RBC Distribution Width CV 12.2 % (11.6-14.6); RBC Distribution Width SD 39.1 fl (35.1-43.9); Red Blood Count 5.21 M/mm3 (4.6-6.2); White Blood Count 10.2 K/mm3 (4.4-11.0)
[2021-10-12 13:03] LABS: Vitamin D,25 Hydroxy 58.9 ng/mL
[2021-10-12 13:08] LABS: AST(SGOT) 17 U/L (15-37); Alanine Aminotransfer ALT/SGPT 34 U/L (16-61); Albumin, Serum 3.6 g/dL (3.2-5.0); Alkaline Phosphatase 93 U/L (45-117); Anion Gap 9 (5-15); BUN 12 mg/dL (7-18); BUN/Creat Ratio 13.5 RATIO (10-20); Calcium,Total 9.3 mg/dL (8.5-10.1); Chloride 99 mmol/L (98-107); Creatinine, Serum 0.89 mg/dL (0.70-1.30); EST Glomerular Filtration Rate 91 mL/min (>60); Est Glom Filt Rate - Afr Amer 110 mL/min (>60); Globulin 3.7 g/dL (2.2-4.2); Glucose 89 mg/dL (74-106); Potassium 4.3 mmol/L (3.5-5.1); Protein, Total 7.3 g/dL (6.4-8.2); Sodium Level 134 mmol/L (136-145); Thyroid Stim Hormone (TSH) 2.51 uIU/mL (0.358-3.74)
== END | disposition home or self-care (01) ==
LOC: POLAB3 09:19
PROVIDERS: PCP Family Medicine Geriatric Medicine; Visit Provider Family Medicine Geriatric Medicine
DX: I10 Essential (primary) hypertension (principal); E11.65 Type 2 diabetes mellitus with hyperglycemia; E55.9 Vitamin D deficiency, unspecified
CPT/HCPCS: 36415; 80053; 82306; 84443; 85025

== ENCOUNTER → 2022-05-25 | Outpatient (CLI) | payer MEDICARE, MEDICAID, SELFPAY ==
[2022-05-25 08:18] LABS: Absolute Neutrophil Count 6.3 X10^3/uL (2.0-7.7); Basophil# 0.08 X10^3/uL; Basophil% 0.8 % (0-1); Eosinophil# 0.33 X10^3/uL; Eosinophils% 3.3 % (0-5); Hematocrit 41.9 % (40-54); Hemoglobin 14.8 g/dL (13.0-16.5); Lymphocyte % 23.3 % (19-41); Mean Corp Hgb Conc 35.3 g/dL (32-36); Mean Platelet Vol. 8.8 fl (6.2-12.0); Monocyte# 0.84 X10^3/uL; Monocyte% 8.5 % (0-10); NRBC Flagged by Analyzer 0 % (0-5); Neutrophil # 6.32 X10^3/uL (2.7-7.7); Neutrophil % 63.9 % (47-70); Platelet Count 326 K/mm3 (150-450); RBC Distribution Width SD 36.6 fl (35.1-43.9); Red Blood Count 4.93 M/mm3 (4.6-6.2); White Blood Count 9.9 K/mm3 (4.4-11.0)
[2022-05-25 08:52] LABS: Vitamin D,25 Hydroxy 63.8 ng/mL
[2022-05-25 09:05] LABS: ALB/GLOB Ratio 1.1 RATIO (0.9-2.4); AST(SGOT) 19 U/L (15-37); Alanine Aminotransfer ALT/SGPT 24 U/L (16-61); Albumin, Serum 3.9 g/dL (3.2-5.0); Alkaline Phosphatase 97 U/L (45-117); Anion Gap 8 (5-15); BUN 14 mg/dL (7-18); BUN/Creat Ratio 13.9 RATIO (10-20); Calcium,Total 9.2 mg/dL (8.5-10.1); Chloride 95 mmol/L (98-107); Creatinine, Serum 1.01 mg/dL (0.70-1.30); EST Glomerular Filtration Rate 78 mL/min (>60); Est Glom Filt Rate - Afr Amer 94 mL/min (>60); Globulin 3.4 g/dL (2.2-4.2); Glucose 139 mg/dL (74-106); PSA,Total - Annual Screen 1.29 ng/mL (0.00-4.00); Potassium 4.3 mmol/L (3.5-5.1); Protein, Total 7.3 g/dL (6.4-8.2); Sodium Level 130 mmol/L (136-145); Thyroid Stim Hormone (TSH) 3.12 uIU/mL (0.358-3.74)
[2022-05-28 14:03] LABS: KEPPRA (LEVETIRACETAM) 17.9 ug/mL (10.0-40.0)
== END | disposition home or self-care (01) ==
PROVIDERS: PCP Family Medicine Geriatric Medicine; Referring Provider Psychiatry & Neurology Neurology; Visit Provider Psychiatry & Neurology Neurology
DX: E55.9 Vitamin D deficiency, unspecified (principal); E11.65 Type 2 diabetes mellitus with hyperglycemia; R53.83 Other fatigue; Z12.5 Encounter for screening for malignant neoplasm of prostate
CPT/HCPCS: 36415; 80053; 80177; 80184; 82140; 82306; 84153; 84443; 85025; G0103

== ENCOUNTER → 2022-10-25 | Outpatient (CLI) | payer MEDICARE, MEDICAID, SELFPAY ==
[2022-10-25 13:20] LABS: Absolute Lymphocyte Count 2.35 X10^3/uL (0.83-4.51); Absolute Neutrophil Count 6.2 X10^3/uL (2.0-7.7); Basophil# 0.07 X10^3/uL; Basophil% 0.7 % (0-1); Eosinophil# 0.27 X10^3/uL; Eosinophils% 2.7 % (0-5); Hematocrit 43.3 % (40-54); Hemoglobin 14.7 g/dL (13.0-16.5); Lymphocyte # 2.35 X10^3/ul (0.83-4.51); Lymphocyte % 23.7 % (19-41); Mean Corp Hgb Conc 33.9 g/dL (32-36); Mean Corpuscular Hgb 29.5 pg (27.0-32.0); Mean Corpuscular Volume 86.9 fL (80-94); Mean Platelet Vol. 9.4 fl (6.2-12.0); Monocyte# 1.04 X10^3/uL; Monocyte% 10.5 % (0-10); NRBC Flagged by Analyzer 0 % (0-5); Neutrophil # 6.17 X10^3/uL (2.7-7.7); Neutrophil % 62.2 % (47-70); Platelet Count 326 K/mm3 (150-450); RBC Distribution Width CV 11.9 % (11.6-14.6); Red Blood Count 4.98 M/mm3 (4.6-6.2); White Blood Count 9.9 K/mm3 (4.4-11.0)
[2022-10-25 13:37] LABS: Vitamin D,25 Hydroxy 84.5 ng/mL
[2022-10-25 13:39] LABS: ALB/GLOB Ratio 0.9 RATIO (0.9-2.4); AST(SGOT) 16 U/L (15-37); Alanine Aminotransfer ALT/SGPT 27 U/L (16-61); Albumin, Serum 3.6 g/dL (3.2-5.0); Alkaline Phosphatase 110 U/L (45-117); Anion Gap 6 (5-15); BUN 15 mg/dL (7-18); BUN/Creat Ratio 15.7 RATIO (10-20); Calcium,Total 9.2 mg/dL (8.5-10.1); Chloride 98 mmol/L (98-107); Cholesterol 102 mg/dL (200); Creatinine, Serum 0.96 mg/dL (0.70-1.30); EST Glomerular Filtration Rate 83 mL/min (>60); Est Glom Filt Rate - Afr Amer 101 mL/min (>60); Globulin 3.8 g/dL (2.2-4.2); Glucose 95 mg/dL (74-106); High Density Lipoprotein 36 mg/dL; Potassium 4.3 mmol/L (3.5-5.1); Protein, Total 7.4 g/dL (6.4-8.2); Sodium Level 130 mmol/L (136-145); Thyroid Stim Hormone (TSH) 1.99 uIU/mL (0.358-3.74); Triglycerides 130 mg/dL; Very Low Density Lipoprotein 26 mg/dL (5-40)
== END | disposition home or self-care (01) ==
PROVIDERS: PCP Family Medicine Geriatric Medicine; Visit Provider Family Medicine Geriatric Medicine
DX: E11.65 Type 2 diabetes mellitus with hyperglycemia (principal); R53.83 Other fatigue
CPT/HCPCS: 36415; 80053; 80061; 82306; 83036; 84443; 85025

== ENCOUNTER 2022-11-04 07:08 | Inpatient (IN) | payer MEDICARE, MEDICAID, SELFPAY ==
[2022-11-04] VITALS (11 sets, daily range): BP systolic 158–188; BP diastolic 65–90; PULSE 73–98; RESP 18–25; TEMP 36.1–37.3; O2SAT 88–98; BMI 33.2
--- NOTE | 2022-11-04 07:17 | RAD_ITS ---
INDICATION: Covid, borderline hypoxemia EXAMINATION/TECHNIQUE: X-RAY - XR Chest 1 View COMPARISON: No prior examinations are available for comparison. FINDINGS: LINES/DEVICES: None. LUNGS: Mild elevation of the right hemidiaphragm. Mild left basilar infiltrate/atelectasis abutting the left hemidiaphragm. Possible small left pleural effusion. MEDIASTINUM AND CARDIOVASCULAR STRUCTURES: Cardiac silhouette not enlarged. Central airways and mediastinal contour are unremarkable. BONES AND SOFT TISSUES: No demonstrated acute osseous changes. RAD/Chest 1 View (Portable) IMPRESSION: Left basilar infiltrate/atelectasis. Possible small left pleural effusion. Electronically Signed: Anthony Dupree MD at 8:34 EDT ,
--- NOTE | 2022-11-04 07:18 | EDS_ITS ---
HPI HPI - Fall History of Present Illness Chief Complaint: Fall Informant: EMS Narrative Narrative: longterm resident who recently tested positive for COVID who had a minor fall this morning according to EMS, and was weak getting up to his feet and so EMS was called for transport to the hospital and further evaluation. There were no other details given. EMS states that he did not seem injured to them, and although he was a little unsteady on his feet he was able to walk to the cot for them. He is autistic and nonverbal at baseline according to their report. Patient is nonverbal and does not indicate anything in particular, but is cooperative with us. No history available from the patient. No report was given from the care home staff, our nurses called to discuss details. Apparently someone checked on him around 4 AM and he was still in bed sleeping and at 5 AM, he was sitting on the floor like he had fallen next to his bed. They were able to get him up but it was more difficult than usual possibly due to being weak. At baseline mental status which is nonverbal but usually cooperative. Staff later added that he was just started on Paxlovid yesterday. [facility] Medical History Developmental non-verbal disorder Diabetes mellitus, type II Epilepsy, unspecified, not intractable, without status epilepticus HTN (hypertension) Hyperlipidemia Schizophrenia Seizure disorder Vitamin B12 deficiency Home Medications loratadine 10 mg tablet 10 mg PO DAILY 07/16/16 [History Last Taken Unknown] omega 8-qtd-tze-fish oil 300 mg-1,000 mg capsule 1 ea PO BID 07/16/16 [History Last Taken Unknown] risperidone 3 mg tablet 3 mg PO QHS 07/16/16 [History Last Taken Unknown] atorvastatin 40 mg tablet 40 mg PO QHS 11/27/19 [History Last Taken Unknown] metformin 1,000 mg tablet 1,000 mg PO BID 11/27/19 [History Last Taken Unknown] chlorhexidine gluconate 0.12 % mouthwash 15 ml buccal DAILY 12/02/19 [History Last Taken Unknown] fluticasone propionate 50 mcg/actuation nasal spray,suspension 1 spray intranasal DAILY 12/02/19 [History Last Taken Unknown] levothyroxine 50 mcg capsule 50 mcg PO DAILY 12/02/19 [History Last Taken Unknown] multivitamin 1 tab PO DAILY 12/02/19 [History Last Taken Unknown] polyethylene glycol 3350 17 gram oral powder packet 17 g PO BID 12/02/19 [History Last Taken Unknown] tamsulosin 0.4 mg capsule 0.4 mg PO DAILY 12/02/19 [History Last Taken Unknown] lisinopril 2.5 mg tablet 2.5 mg PO DAILY 08/03/20 [History Last Taken Unknown] cholecalciferol (vitamin D3) 1,250 mcg (50,000 unit) capsule 1,250 mcg PO QMONTH #3 caps 06/01/22 [Rx Last Taken Unknown] levetiracetam 1,000 mg tablet 1,000 mg PO BID #60 tabs 06/01/22 [Rx Last Taken Unknown] mecobalamin (vitamin B12) 1,000 mcg chewable tablet (B12 Active) 1,000 mcg PO DAILY #30 tabs 06/01/22 [Rx Last Taken Unknown] phenobarbital 60 mg tablet 120 mg (2 x 60 mg) PO QHS #60 tabs 06/01/22 [Rx Last Taken Unknown] Allergy/AdvReac Type Severity Reaction Status Date / Time No Known Allergies Allergy Verified 11/04/22 07:13 Family History unable to obtain Surgical History (Updated 06/01/22 @ 12:57 by Amna Kapadia) No history of previous surgery Surgical History unable to obtain Social History (Updated 11/04/22 @ 08:[address] Alice Mckeon, DO) housing: other details: longterm Smoking Status: Never smoker Electronic Cigarette Use: not used second hand exposure: No alcohol intake: never substance use type: does not use seatbelt use: always ROS ROS ED Review of Systems ROS Unobtainable: due to mental condition EXAM Physical Exam Const Vital Signs: 11/04/22 07:10 11/04/22 07:33 11/04/22 07:33 Temperature 97 F L Temperature Source Temporal Pulse Rate 98 Respiratory Rate 25 H Blood Pressure 165/65 H Blood Pressure Mean 98 Pulse Ox 92 92 Oxygen Delivery Method Room Air Room Air Room Air Oxygen Flow Rate (L/min) 11/04/22 08:00 11/04/22 08:03 11/04/22 08:35 Temperature Temperature Source Pulse Rate Respiratory Rate 18 Blood Pressure Blood Pressure Mean Pulse Ox 88 96 96 Oxygen Delivery Method Room Air Nasal Cannula Nasal Cannula Oxygen Flow Rate (L/min) 2 2 08/12/23 09:14 Temperature 98.4 F Temperature Source Temporal Pulse Rate 86 Respiratory Rate 18 Blood Pressure 160/75 H Blood Pressure Mean 103 Pulse Ox 98 Oxygen Delivery Method Nasal Cannula Oxygen Flow Rate (L/min) 2 Positive well nourished and well developed General Appearance ED: well developed and NAD HEENT Reports TM's clear and nasal mucous membranes and turbinates normal atraumatic Face and Sinus: Negative for facial tenderness Tympanic Membrane ED: Yes TM's clear Eyes PERRL and EOMs intact bilaterally Visual Acuity: other Other Details: no entrapment or pain with extraocular movements Neck full ROM and supple General: Negative for tenderness Chest Wall inspection of chest normal and palpation of chest normal Chest: symmetrical chest wall rise; Negative for crepitus or tenderness Resp normal respiratory effort and clear to auscultation bilaterally Percussion: other equal BS bilat Cardio no murmurs Rate: regular rate; Negative for tachycardic Rhythm: regular rhythm GI normal to inspection, nondistended, normoactive bowel sounds, soft to palpation and non-tender Back/Spine normal ROM Cervical Spine: Negative for cervical spine tenderness Thoracic Spine / Upper Back: Negative for thoracic spinal tenderness Lumbar Spine / Lower Back: Negative for lumbar spinal tenderness Extremity normal to inspection and full ROM General Extremety ED: Negative for tenderness Neuro CN's II-XII intact bilaterally, moves all extremities, no focal motor deficits and no sensory deficits noted [place] Coma Scale: document GCS findings (within limits of exam given that pt is nonverbal; at baseline per EMS, per care home staff) Spontaneous Obeys Commands Oriented 15 Sensorium / Orientation: awake and alert Skin no wounds Skin Narrative: abrasion left elbow olecranon, nontender Lesions: no lesions Rashes: no rashes MDM MDM MDM Narrative Medical decision making narrative: Nurses and I were able to get him to get out of bed with assistance and stand without any difficulty. He was able to take steps in place and does not appear to be in any pain. He is moving all 4 extremities equally, he has no signs of any head trauma and I do not think he needs to be x-rayed or CT'd in order to rule out any significant injury. My concern is that he has COVID, and precautions were taken, but he is borderline hypoxemic 90-92% on room air. His lungs are clear, he does not appear dyspneic and he is not tachycardic. My suspicion for acute pulmonary embolus is low so I started with a chest x-ray and a D-dimer as well as basic labs. His D-dimer returned within normal limits ruling out pulmonary embolus complicating his COVID-19. Chest x-ray 1 view on my interpretation shows possibly some interstitial abnormality diffusely but no acute consolidation, pneumothorax or other acute abnormality. Patient did dip down to 88% on room air to be placed on 2 L of oxygen which kept him well into the 90s. He does hav e a mild leukocytosis which is nonspecific, his sodium is 128, and the rest of his labs are unremarkable. His guardian called and wanted him to try to be discharged back to the care home if at all possible even if on oxygen which she is needing. We discussed with the care home, unfortunately they are not able to accommodate oxygen there. For that reason I feel we will need to admit him due to the hypoxemia. Decadron 6 mg given. With regards to his fall, he has now been observed for 3.5 hours post fall, and displayed no signs of head injury, he has no anticoagulants, and I think he can safely continue to be observed with regards to the possibility of a head injury I do not think he needs a head CT. Radiology read his x-ray is left basilar infiltrate versus atelectasis, at this time I am favoring the latter. He has not coughed while he has been here in emergency department. He will be admitted and will be continued to be evaluated. History & Record Review Discussion w/independent historian: EMS personnel and Other (care home staff) Additional record(s) reviewed:: Prior labs Lab Data Attestation: I reviewed the patient's lab results. Labs: Laboratory Results - last 24 hr 11/04/22 07:27 WBC 11.1 H RBC 4.41 L Hgb 13.2 Hct 37.8 L MCV 85.7 MCH 29.9 MCHC 34.9 RDW Std Deviation 37.2 RDW Coeff of Celi 11.8 Plt Count 251 MPV 9.1 Immature Gran % (Auto) 0.400 Neut % (Auto) 80.2 H Lymph % (Auto) 5.7 L Haines % (Auto) 13.2 H Eos % (Auto) 0.1 Baso % (Auto) 0.4 Absolute Neuts (auto) 8.9 H Absolute Lymphs (auto) 0.63 L Nucleated RBC % 0 D-Dimer Quant (PE/DVT) 0.39 Sodium 128 L Potassium 3.9 Chloride 95 L Carbon Dioxide 24.0 Anion Gap 9 BUN 15 Creatinine 0.95 Estim Creat Clear Calc 72.00 Est GFR (MDRD) Af Amer 101 Est GFR (MDRD) Non-Af 83 BUN/Creatinine Ratio 15.7 Glucose 152 H Calcium 8.5 Radiography Diagnostic Testing: Clinical Impression(s) from Imaging Studies Chest X-Ray 11/04/22 07:17 IMPRESSION: Left basilar infiltrate/atelectasis. Possible small left pleural effusion. Electronically Signed: Anthony Dupree MD at 8:34 EDT , Discharge Plan Dx/Rx/DC Orders Clinical Impression: COVID-19, Hypoxemia, Fall Disposition Disposition: Acute Care Hospital [facility]
[2022-11-04 07:34] LABS: Absolute Lymphocyte Count 0.63 X10^3/uL (0.83-4.51); Absolute Neutrophil Count 8.9 X10^3/uL (2.0-7.7); Basophil# 0.04 X10^3/uL; Basophil% 0.4 % (0-1); Eosinophil# 0.01 X10^3/uL; Eosinophils% 0.1 % (0-5); Hematocrit 37.8 % (40-54); Hemoglobin 13.2 g/dL (13.0-16.5); Lymphocyte # 0.63 X10^3/ul (0.83-4.51); Lymphocyte % 5.7 % (19-41); Mean Corp Hgb Conc 34.9 g/dL (32-36); Mean Corpuscular Hgb 29.9 pg (27.0-32.0); Mean Corpuscular Volume 85.7 fL (80-94); Mean Platelet Vol. 9.1 fl (6.2-12.0); Monocyte# 1.47 X10^3/uL; Monocyte% 13.2 % (0-10); NRBC Flagged by Analyzer 0 % (0-5); Neutrophil # 8.94 X10^3/uL (2.7-7.7); Neutrophil % 80.2 % (47-70); Platelet Count 251 K/mm3 (150-450); RBC Distribution Width CV 11.8 % (11.6-14.6); RBC Distribution Width SD 37.2 fl (35.1-43.9); Red Blood Count 4.41 M/mm3 (4.6-6.2); White Blood Count 11.1 K/mm3 (4.4-11.0)
[2022-11-04 07:44] LABS: D-Dimer Quantitative (DVT/PE) 0.39 FEU/ug/m (0.27-0.49)
[2022-11-04 07:47] LABS: Anion Gap 9 (5-15); BUN 15 mg/dL (7-18); BUN/Creat Ratio 15.7 RATIO (10-20); Calcium,Total 8.5 mg/dL (8.5-10.1); Chloride 95 mmol/L (98-107); Creatinine, Serum 0.95 mg/dL (0.70-1.30); EST Glomerular Filtration Rate 83 mL/min (>60); Est Glom Filt Rate - Afr Amer 101 mL/min (>60); Glucose 152 mg/dL (74-106); Potassium 3.9 mmol/L (3.5-5.1); Sodium Level 128 mmol/L (136-145)
--- NOTE | 2022-11-04 08:41 | PCM.HP.STD ---
HPI - General General Date of Admission: 11/04/22 Date of Service: 11/04/22 Chief Complaint: Fall HPI Narrative NAYLA ROBLES, is a 67 M who presented to the emergency department at [facility] on 11/04/2022 after sustaining a fall at his senior care. All history is taken from what EMS reported to the ED physician in the ED staff discussing with senior care staff. Patient is nonverbal at baseline. More reported that he did not appear injured to them but was unsteady on his feet while transporting him to the [facility] for transportation to the emergency department. Evidently somebody checked on him at 4 AM and he was still in bed sleeping however at 5 AM he was sitting on the floor like he had fallen out next to his bed. They were able to get him up but was more difficult than usual. He apparently was tested positive as an outpatient for COVID-19 and was started on Paxlovid yesterday. Vital signs on presentation demonstrated temperature of 97, blood pressure 165/65, respiratory rate was 25 initially but on repeat was 18, oxygen saturations were initially 92% on room air but he did desat to 88% on room air and was placed on 2 L nasal cannula which improved his oxygen saturations to 96%. CBC showed a mild leukocytosis with a white count of 11.1 and a left shift of 80.2. D-dimer was normal. Chemistry showed chronic hyponatremia with a sodium of 128 which appears consistent with his baseline and hyperglycemia with a glucose of 152. His chest x-ray is unremarkable. COVID tested here is pending however outpatient study was positive per senior care. Initial intent was to discharge back to the senior care with oxygen per discussion with the guardian and the emergency department physician however the senior care is unable to take oxygen and therefore admission was required. [facility] Medical History Developmental non-verbal disorder Diabetes mellitus, type II Epilepsy, unspecified, not intractable, without status epilepticus HTN (hypertension) Hyperlipidemia Schizophrenia Seizure disorder Vitamin B12 deficiency Home Medications loratadine 10 mg tablet 10 mg PO DAILY 07/16/16 [History Last Taken Unknown] omega 5-xzz-aoa-fish oil 300 mg-1,000 mg capsule 1 ea PO BID 07/16/16 [History Last Taken Unknown] risperidone 3 mg tablet 3 mg PO QHS 07/16/16 [History Last Taken Unknown] atorvastatin 40 mg tablet 40 mg PO QHS 11/27/19 [History Last Taken Unknown] metformin 1,000 mg tablet 1,000 mg PO BID 11/27/19 [History Last Taken Unknown] chlorhexidine gluconate 0.12 % mouthwash 15 ml buccal DAILY 12/02/19 [History Last Taken Unknown] fluticasone propionate 50 mcg/actuation nasal spray,suspension 1 spray intranasal DAILY 12/02/19 [History Last Taken Unknown] levothyroxine 50 mcg capsule 50 mcg PO DAILY 12/02/19 [History Last Taken Unknown] multivitamin 1 tab PO DAILY 12/02/19 [History Last Taken Unknown] polyethylene glycol 3350 17 gram oral powder packet 17 g PO BID 12/02/19 [History Last Taken Unknown] tamsulosin 0.4 mg capsule 0.4 mg PO DAILY 12/02/19 [History Last Taken Unknown] lisinopril 2.5 mg tablet 2.5 mg PO DAILY 08/03/20 [History Last Taken Unknown] cholecalciferol (vitamin D3) 1,250 mcg (50,000 unit) capsule 1,250 mcg PO QMONTH #3 caps 06/01/22 [Rx Last Taken Unknown] levetiracetam 1,000 mg tablet 1,000 mg PO BID #60 tabs 06/01/22 [Rx Last Taken Unknown] mecobalamin (vitamin B12) 1,000 mcg chewable tablet (B12 Active) 1,000 mcg PO DAILY #30 tabs 06/01/22 [Rx Last Taken Unknown] phenobarbital 60 mg tablet 120 mg (2 x 60 mg) PO QHS #60 tabs 06/01/22 [Rx Last Taken Unknown] Allergy/AdvReac Type Severity Reaction Status Date / Time No Known Allergies Allergy Verified 11/04/22 07:13 Family History unable to obtain unable to obtain Surgical History (Updated 06/01/22 @ 12:57 by Amna Kapadia) No history of previous surgery Surgical History unable to obtain unable to obtain Social History (Updated 11/04/22 @ 08:[address] Alice Mckeon, ) housing: other details: [facility] Smoking Status: Never smoker Electronic Cigarette Use: not used second hand exposure: No alcohol intake: never substance use type: does not use seatbelt use: always ROS ROS Narrative Unable to obtain as patient is nonverbal at baseline Vital Signs Vital Signs Vital Signs: 11/04/22 07:10 11/04/22 07:33 11/04/22 07:33 Temperature 97 F L Temperature Source Temporal Pulse Rate 98 Respiratory Rate 25 H Blood Pressure 165/65 H Blood Pressure Mean 98 Pulse Ox 92 92 Oxygen Delivery Method Room Air Room Air Room Air Oxygen Flow Rate (L/min) 11/04/22 08:00 11/04/22 08:03 11/04/22 08:35 Temperature Temperature Source Pulse Rate Respiratory Rate 18 Blood Pressure Blood Pressure Mean Pulse Ox 88 96 96 Oxygen Delivery Method Room Air Nasal Cannula Nasal Cannula Oxygen Flow Rate (L/min) 2 2 Weight Weight: 99.1 kg Body Mass Index (BMI) 33.2 Physical Exam Const alert, no apparent distress, healthy appearing and well nourished; Negative for average body habitus Constitutional Narrative: Obese, upper middle-aged, nonverbal, white male, sitting up in bed, appears comfortable and nontoxic General Appearance: cooperative HEENT normocephalic, head/scalp atraumatic and moist oral mucous membranes HEENT Narrative: Mallampati 3, no thrush, dentition is poor with multiple teeth missing, difficulty to assess hearing but hearing seems to be intact Eyes PERRL, EOMs intact bilaterally and conjunctivae normal Neck no lymphadenopathy Neck Narrative: Neck is short and thick, trachea is midline, no thrush Resp normal respiratory effort, no retractions, no use of accessory muscles and clear to auscultation bilaterally Auscultation: Negative for rales, rhonchi or wheezes Cardio regular rate, regular rhythm, S1 normal heart sound, S2 normal heart sound, no murmurs, no rub, no gallops and no clicks GI normal to inspection, nondistended, normoactive bowel sounds, soft to palpation and non-tender Extremity no clubbing, cyanosis or edema Extremity Narrative: Pedal pulses are 2+, radial pulses are 2+ Skin Skin Narrative: Erythema on both knees I suspect this is related to fall, no bruising Neuro CN's II-XII intact bilaterally, moves all extremities and no focal motor deficits Neuro Narrative: Unable to ascertain orientation as patient is nonverbal Speech: Negative for speech normal Psych Psych Narrative: Difficult to assess but patient is currently calm and cooperative Results Lab / Micro Data Attestation: I reviewed the patient's lab results. 11/04/22 07:27 11/04/22 07:27 Labs: Laboratory Results - last 24 hr 11/04/22 07:27: WBC 11.1 H, RBC 4.41 L, Hgb 13.2, Hct 37.8 L, MCV 85.7, MCH 29.9, MCHC 34.9, RDW Std Deviation 37.2, RDW Coeff of Celi 11.8, Plt Count 251, MPV 9.1, Immature Gran % (Auto) 0.400, Neut % (Auto) 80.2 H, Lymph % (Auto) 5.7 L, [place] % (Auto) 13.2 H, Eos % (Auto) 0.1, Baso % (Auto) 0.4, Absolute Neuts (auto) 8.9 H, Absolute Lymphs (auto) 0.63 L, Nucleated RBC % 0, D-Dimer Quant (PE/DVT) 0.39, Sodium 128 L, Potassium 3.9, Chloride 95 L, Carbon Dioxide 24.0, Anion Gap 9, BUN 15, Creatinine 0.95, Estim Creat Clear Calc 72.00, Est GFR (MDRD) Af Amer 101, Est GFR (MDRD) Non-Af 83, BUN/Creatinine Ratio 15.7, Glucose 152 H, Calcium 8.5 Radiology Impression Chest X-Ray 11/04/22 07:17 IMPRESSION: Left basilar infiltrate/atelectasis. Possible small left pleural effusion. Electronically Signed: Anthony Dupree MD at 8:34 EDT , Assessment & Plan Assessment/Plan (1) Hypoxemia: (2) COVID-19: (3) Fall: PLAN: Plan Acute hypoxia secondary to COVID-19 pneumonia -Typically does not require oxygen at baseline and now on 2 L -Wean as able -Desatted into the 80s on room air -Decadron initiated in the emergency department we will continue 6 mg daily x9 more days -Start remdesivir with loading dose and daily dose x5 days -Will check daily CBC and liver functions -Pulmonary toilet if patient able to follow commands enough to perform incentive spirometry and [place] -No current concern for superimposed bacterial pneumonia but will monitor -Once patient is back on room air should be able to discharge back to senior care--> they are unable to accommodate oxygen Falls -Suspect weakness due to COVID-19 infection -Consult PT/OT Chronic hyponatremia -Current sodium appears to be within baseline -We will monitor the sodium can drop with acute COVID-19 infection Seizure disorder -Continue home Keppra -Continue home phenobarbital Schizophrenia -Continue home risperidone -Patient is nonverbal at baseline HTN/HPL -Continue home atorvastatin -Continue home Toprol DM-2 -Hold home metformin -Start sliding scale -Accu-Cheks as ordered Constipation -Appears to be chronic -Continue home medication BPH -Continue home Flomax Vitamin B12 deficiency -Continue supplementation Obesity -BMI 33.2 -Recommend weight loss next-complicates treatment, prognosis, outcomes DVT prophylaxis -Enoxaparin 40 daily CODE STATUS -Verifying with guardian Charges/Coding Visit Charges Inpatient E&M: 36191 Init Hosp L2
--- NOTE | 2022-11-04 08:45 | NURSING ---
MED SURG IVORY COVID, HYPOXEMIA
[2022-11-04] MEDS: dexAMETHasone 10 MG/ML Vial 6 MG IV (09:13)
[2022-11-04 11:13] LABS: Alkaline Phosphatase 91 U/L (45-117)
[2022-11-04] MEDS: Enoxaparin 40 MG/0.4 ML Syringe SC (11:50)
[2022-11-04 12:25] LABS: Bedside Glucose 147 mg/dL (74-106)
[2022-11-04 15:12] LABS: Bacteria 0 SEEN /hpf (None Seen); Mucous, Urine 0 SEEN /hpf (<or=2+); Red Blood Cells-Urine 0 SEEN /hpf (0-5); Squamous Epithelial Cells - UA 0 SEEN /hpf (0-5); White Blood Cells 0 SEEN /hpf (0-5)
[2022-11-04 15:19] LABS: Color, Urine Yellow (Yellow); Glucose, Dipstick 250 mg/dl (Normal); Ketone-Dipstick 5 mg/dl (Negative); Leukocyte Esterase-Dipstick Negative /ul (Negative); Nitrite-Dipstick Negative (Negative); Occult Blood-Urine 50 /ul (Negative); Protein-Dipstick 30 mg/dl (Negative); Urine Bilirubin Dipstick Negative (Negative); Urine Clarity Clear (Clear); Urine Urobilinogen Normal (Normal); Urine pH 6.5 (5.0 - 8.0)
[2022-11-04 17:11] LABS: Bedside Glucose 114 mg/dL (74-106)
[2022-11-04] MEDS: RisperiDONE 1 MG Tablet 3 MG PO (22:06)
[2022-11-04] MEDS: Phenobarbital 32.4 MG Tablet 129.6 MG PO (22:06)
[2022-11-04] MEDS: levETIRAcetam 1,000 MG Tablet 1000 MG PO (22:06)
[2022-11-04] MEDS: Atorvastatin Calcium 40 MG Tablet PO (22:07)
[2022-11-04] MEDS: Polyethylene Glycol 3350 17 GM PACKET PO (22:07)
[2022-11-04 22:31] LABS: Bedside Glucose 105 mg/dL (74-106)
[2022-11-05 03:00] VITALS: BP 160/85; PULSE 73; RESP 18; TEMP 36.6; O2SAT 94
[2022-11-05] MEDS: Levothyroxine 50 MCG Tablet PO (05:15)
[2022-11-05 06:48] LABS: Bedside Glucose 131 mg/dL (74-106)
[2022-11-05 06:57] LABS: Absolute Lymphocyte Count 2.33 X10^3/uL (0.83-4.51); Absolute Neutrophil Count 5.1 X10^3/uL (2.0-7.7); Basophil# 0.05 X10^3/uL; Basophil% 0.5 % (0-1); Eosinophil# 0.06 X10^3/uL; Eosinophils% 0.6 % (0-5); Hematocrit 40.5 % (40-54); Hemoglobin 13.9 g/dL (13.0-16.5); Lymphocyte # 2.33 X10^3/ul (0.83-4.51); Lymphocyte % 25.1 % (19-41); Mean Corp Hgb Conc 34.3 g/dL (32-36); Mean Corpuscular Hgb 29.6 pg (27.0-32.0); Mean Corpuscular Volume 86.2 fL (80-94); Mean Platelet Vol. 9.2 fl (6.2-12.0); Monocyte# 1.67 X10^3/uL; NRBC Flagged by Analyzer 0 % (0-5); Neutrophil # 5.14 X10^3/uL (2.7-7.7); Neutrophil % 55.5 % (47-70); POSITIVE DIFFERENTIAL YES; Platelet Count 275 K/mm3 (150-450); RBC Distribution Width CV 11.9 % (11.6-14.6); RBC Distribution Width SD 37.2 fl (35.1-43.9); White Blood Count 9.3 K/mm3 (4.4-11.0)
[2022-11-05 07:03] LABS: Differential Indicated SCAN CRITERIA MET
[2022-11-05 07:29] LABS: Phosphorus 3.2 mg/dL (2.5-4.9)
[2022-11-05 07:38] LABS: ALB/GLOB Ratio 0.8 RATIO (0.9-2.4); AST(SGOT) 63 U/L (15-37); Alanine Aminotransfer ALT/SGPT 35 U/L (16-61); Alkaline Phosphatase 82 U/L (45-117); Anion Gap 8 (5-15); BUN 14 mg/dL (7-18); BUN/Creat Ratio 17.5 RATIO (10-20); Calcium,Total 8.4 mg/dL (8.5-10.1); Chloride 99 mmol/L (98-107); EST Glomerular Filtration Rate 102 mL/min (>60); Est Glom Filt Rate - Afr Amer 123 mL/min (>60); Globulin 3.7 g/dL (2.2-4.2); Glucose 124 mg/dL (74-106); Potassium 3.8 mmol/L (3.5-5.1); Protein, Total 6.7 g/dL (6.4-8.2); Sodium Level 133 mmol/L (136-145); Thyroid Stim Hormone (TSH) 3.49 uIU/mL (0.358-3.74)
[2022-11-05 07:59] VITALS: O2SAT 94
[2022-11-05 09:38] VITALS: BP 161/83; PULSE 80; RESP 16; TEMP 36.6; O2SAT 94
[2022-11-05 09:47] VITALS: O2SAT 94; O2SAT 97
[2022-11-05 09:48] VITALS: O2SAT 94
[2022-11-05] MEDS: dexAMETHasone 4 MG Tablet 6 MG PO (09:54)
[2022-11-05] MEDS: Fluticasone 0.05% 1 SPRAY NASAL.SRY NASAL (09:54)
[2022-11-05] MEDS: Tamsulosin HCl 0.4 MG Capsule PO (09:54)
[2022-11-05] MEDS: levETIRAcetam 1,000 MG Tablet 1000 MG PO (09:56)
[2022-11-05] MEDS: Enoxaparin 40 MG/0.4 ML Syringe SC (09:56)
[2022-11-05] MEDS: Chlorhexidine 480 ML 15 ML PO (09:56)
[2022-11-05] MEDS: Lisinopril 2.5 MG Tablet PO (09:57)
--- NOTE | 2022-11-05 11:52 | DS.PCM_ITS ---
Providers Date of Admission: 11/04/22 Date of Discharge: 11/05/22 Primary Care Physician: Dr. Dean Felipe MD Reason For Visit: HYPOXIA,/COVID PNA Diagnosis Discharge Diagnosis (1) Hypoxemia: Status: Acute Code(s): R09.02 - Hypoxemia (2) COVID-19: Status: Acute Code(s): U07.1 - COVID-19 (3) Fall: Status: Acute Code(s): W19.XXXA - Unspecified fall, initial encounter Medications at Discharge Home Medications loratadine 10 mg tablet 10 mg PO DAILY PRN allergies 07/16/16 omega 4-kmc-mls-fish oil 300 mg-1,000 mg capsule 1 ea PO BID 07/16/16 risperidone 3 mg tablet 3 mg PO QHS 07/16/16 atorvastatin 40 mg tablet 40 mg PO QHS 11/27/19 metformin 1,000 mg tablet 1,000 mg PO BID 11/27/19 chlorhexidine gluconate 0.12 % mouthwash 15 ml buccal DAILY 12/02/19 fluticasone propionate 50 mcg/actuation nasal spray,suspension 1 spray intranasal DAILY 12/02/19 levothyroxine 50 mcg capsule 50 mcg PO DAILY 12/02/19 multivitamin 1 tab PO DAILY 12/02/19 polyethylene glycol 3350 17 gram oral powder packet 17 g PO BID 12/02/19 tamsulosin 0.4 mg capsule 0.4 mg PO DAILY 12/02/19 lisinopril 2.5 mg tablet 2.5 mg PO DAILY 08/03/20 cholecalciferol (vitamin D3) 1,250 mcg (50,000 unit) capsule 1,250 mcg PO QMONTH #3 caps 06/01/22 levetiracetam 1,000 mg tablet 1,000 mg PO BID #60 tabs 06/01/22 mecobalamin (vitamin B12) 1,000 mcg chewable tablet (B12 Active) 1,000 mcg PO DAILY #30 tabs 06/01/22 phenobarbital 60 mg tablet 120 mg (2 x 60 mg) PO QHS #60 tabs 06/01/22 dexamethasone 4 mg tablet 6 mg (1.5 x 4 mg) PO DAILY #8 tabs 11/05/22 Hospital Course Procedures - (Chest x-ray) Summary of Care Provided Minutes Spent on Discharge: 25 Hospital Course: Mr. Bennett is a 67-year-old white male who presented to the emergency department at [facility] on 11/04/2022 after sustaining a fall at his shelter. All history was taken from the EMS report and the ED physician after they discussed the case with his shelter staff as he is nonverbal at baseline. The squad reported that he did not appear injured after he fell but was unsteady on his feet while transporting him back to the cot. Evidently somebody had checked on him at 4 AM and he was still in bed but at 5 AM he was found on the floor like he had fallen out next to his bed. They were able to get him up but it was a bit more difficult than usual. He had tested positive for COVID the day prior and was started on Paxlovid on 11/03/2022. Vital signs on presentation demonstrated temperature of 97, blood pressure 165/65, respiratory rate was 25 initially but on repeat was 18, oxygen saturations were initially 92% on room air but he did desat to 88% on room air and was placed on 2 L nasal cannula which improved his oxygen saturations to 96%. CBC showed a mild leukocytosis with a white count of 11.1 and a left shift of 80.2. D-dimer was normal. Chemistry showed chronic hyponatremia with a sodium of 128 which appears consistent with his baseline and hyperglycemia with a glucose of 152. His chest x-ray is unremarkable. His rapid COVID test here was positive as well. The initial intent was to discharge him back to his shelter with oxygen as he was requiring 2 L due to an oxygen saturation of 88% on room air however his shelter was not able to take him with oxygen and therefore admission was required. He was admitted to the medical floor and placed on 2 L nasal cannula and started on Decadron and remdesivir. After coming up from the emergency department he never required oxygen again and was stable in the mid 90s on room air. We did an ambulatory pulse ox on 11/05/2022 and he was stable on room air both with rest and with exertion. Given the fact he was no longer needing supplemental oxygen we will discharge him back to his shelter. I will continue his Decadron and would recommend continuation of Paxlovid after discharge to complete the course. I would recommend ongoing isolation for 5 days after positive test which would be 11/08/2022 and then recommend wearing a mask when he is around people for 5 days until 11/13/2022 at that point time he can resume normal contact. He was discharged in stable condition on 11/05/2021 back to his shelter with prescr iption for Decadron to complete 8 more days. We have recommend he follow-up with his primary care physician within the next 1 to 2 weeks after he is out of isolation Discharge diagnoses: Acute hypoxia Acute COVID-19 infection Falls Chronic hyponatremia-stable Seizure disorder Autism Schizophrenia Hypertension Hyperlipidemia DM-2 Constipation-chronic BPH Vitamin B12 deficiency Obesity Physical Exam Const alert, no apparent distress, healthy appearing and well nourished; Negative for average body habitus Constitutional Narrative: Obese, upper middle-aged, nonverbal, white male, lying in bed, appears comfortable and nontoxic, skilled nursing professional at bedside getting cleaned up General Appearance: cooperative, comfortable, well kempt and well developed Exam Limitations: other limitations Nutritional Appearance: obese HEENT normocephalic, head/scalp atraumatic and moist oral mucous membranes HEENT Narrative: Dentition is poor, Mallampati is 2-3, no thrush Resp normal respiratory effort, no retractions, no use of accessory muscles and clear to auscultation bilaterally Auscultation: Negative for rales, rhonchi or wheezes Cardio regular rate, regular rhythm, S1 normal heart sound, S2 normal heart sound, no murmurs, no rub, no gallops and no clicks GI normal to inspection, nondistended, normoactive bowel sounds, soft to palpation and non-tender Extremity no clubbing, cyanosis or edema Extremity Narrative: Pedal pulses are 2+, radial pulses are 2+ Neuro moves all extremities and no focal motor deficits Neuro Narrative: Unable to ascertain orientation as patient is nonverbal Speech: Negative for speech normal Psych Psych Narrative: Difficult to assess but patient is currently calm and cooperative Weight / BMI Weight Weight: 99.1 kg Body Mass Index (BMI) 33.2 ABG / Lab / Microbiology Data 11/05/22 06:47 11/05/22 06:47 Laboratory: Laboratory Results - last 24 hr 11/04/22 11:46: POC Glucose 147 H 11/04/22 15:00: Urine Color Yellow, Urine Clarity Clear, Urine pH 6.5, Ur Specific [place] 1.010, Urine Protein 30 H, Urine Glucose (UA) 250 H, Urine Ketones 5 H, Urine Occult Blood 50 H, Urine Nitrite Negative, Urine Bilirubin Negative, Urine Urobilinogen Normal, Ur Leukocyte Esterase Negative, Urine RBC 0 SEEN, Urine WBC 0 SEEN, Ur Squamous Epith Cells 0 SEEN, Urine Bacteria 0 SEEN, Urine Mucus 0 SEEN 11/04/22 16:53: POC Glucose 114 H 11/04/22 22:02: POC Glucose 105 11/05/22 06:30: POC Glucose 131 H 11/05/22 06:47: WBC 9.3, RBC 4.70, Hgb 13.9, Hct 40.5, MCV 86.2, MCH 29.6, MCHC 34.3, RDW Std Deviation 37.2, RDW Coeff of Celi 11.9, Plt Count 275, MPV 9.2, Immature Gran % (Auto) 0.300, Neut % (Auto) 55.5, Lymph % (Auto) 25.1, [place] % (Auto) 18.0 H, Eos % (Auto) 0.6, Baso % (Auto) 0.5, Absolute Neuts (auto) 5.1, Absolute Lymphs (auto) 2.33, Nucleated RBC % 0, Sodium 133 L, Potassium 3.8, Chloride 99, Carbon Dioxide 26.0, Anion Gap 8, BUN 14, Creatinine 0.80, Estim C reat Clear Calc 85.50, Est GFR (MDRD) Af Amer 123, Est GFR (MDRD) Non-Af 102, BUN/Creatinine Ratio 17.5, Glucose 124 H, Calcium 8.4 L, Phosphorus 3.2, Mag nesium 2.0, Total Bilirubin 0.30, AST 63 H, ALT 35, Alkaline Phosphatase 82, Total Protein 6.7, Albumin 3.0 L, Globulin 3.7, Albumin/Globulin Ratio 0.8 L, TSH 3.49 Microbiology: Microbiology 11/04/22 08:45 Nasal Secretion SARS-CoV-2 Antigen (Rapid) - Final SARS-CoV-2 (COVID 19) D/C Instructions Discharge Diet: Low fat / Low cholesterol and 1800 Calorie Control Diet Meaningful Use Info Meaningful Use Diagnoses (Choose all that apply): None applicable Discharge Plan Admission Admit Date/Time: 11/04/22 08:35 Primary Reason for Your Visit: Fall Attending Provider: Alice Mckeon Primary Care Provider: Dean Felipe Chi Instructions Additional Instructions / Restrictions: 1. Patient was diagnosed with COVID-19 infection on 11/03/2022. I would recommend isolation for 5 days until 11/08/2022 and then wear a mask in public and when around other people from 11/08/2022 until 11/12/2022 2. Resume home Paxlovid and complete Decadron course as prescribed Discharge Orders/Prescriptions Prescriptions: New dexamethasone 4 mg Tablet 6 mg PO DAILY Qty: 8 0RF Continued metformin 1,000 mg tablet 1,000 mg PO BID atorvastatin 40 mg tablet 40 mg PO QHS levothyroxine 50 mcg capsule 50 mcg capsule 50 mcg PO DAILY chlorhexidine gluconate 0.12 % mouthwash 15 ml BUCCAL DAILY multivitamin Tablet 1 tab PO DAILY polyethylene glycol 3350 17 gram powder in packet 17 g PO BID fluticasone propionate 50 mcg/actuation spray,suspension 1 spray INTRANASAL DAILY Rx Instructions: administer into each nostril tamsulosin 0.4 mg capsule 0.4 mg PO DAILY lisinopril 2.5 mg tablet 2.5 mg PO DAILY phenobarbital 60 mg tablet 120 mg PO QHS Qty: 60 5RF levetiracetam 1,000 mg tablet 1,000 mg PO BID Qty: 60 6RF cholecalciferol (vitamin D3) 1,250 mcg (50,000 unit) capsule 1,250 mcg PO QMONTH Qty: 3 2RF B12 Active 1,000 mcg tablet,chewable 1,000 mcg PO DAILY Qty: 30 6RF risperidone 3 MG tablet 3 mg PO QHS loratadine 10 MG tablet 10 mg PO DAILY PRN omega 6-qgn-fij-fish oil 1 EACH capsule 1 ea PO BID Referrals / Follow Up: Dean Felipe Chi, MD [Primary Care Provider] - Within 2 Weeks Disposition Disposition (needs filled in before D/C Order can be placed): Home, Self Care
[2022-11-05 12:12] LABS: Bedside Glucose 130 mg/dL (74-106)
== END 2022-11-04 12:45 | disposition home or self-care (01) | DRG 177 ==
LOC: ED 08:25 → MS3 09:46
PROVIDERS: Admitting Provider Internal Medicine; Emergency Provider Emergency Medicine; PCP Family Medicine Geriatric Medicine; Visit Provider Internal Medicine
DX: U07.1 COVID-19 (principal); J12.82 Pneumonia due to coronavirus disease 2019; E87.1 Hypo-osmolality and hyponatremia; F84.0 Autistic disorder; G40.909 Epilepsy, unspecified, not intractable, without status epilepticus; E11.9 Type 2 diabetes mellitus without complications; F20.9 Schizophrenia, unspecified; I10 Essential (primary) hypertension; E53.8 Deficiency of other specified B group vitamins; K59.09 Other constipation; E78.5 Hyperlipidemia, unspecified; Z68.33 Body mass index [BMI] 33.0-33.9, adult; R09.02 Hypoxemia; N40.0 Benign prostatic hyperplasia without lower urinary tract symptoms; E66.9 Obesity, unspecified; Z79.84 Long term (current) use of oral hypoglycemic drugs; Z79.890 Hormone replacement therapy; Z79.899 Other long term (current) drug therapy
CPT/HCPCS: 36415; 71045; 80048; 80053; 81001; 82962; 83735; 84075; 84100; 84443; 85025; 85379; 87811; 99285; J7050; A4216; J0248

== ENCOUNTER → 2022-12-19 | Outpatient (CLI) | payer MEDICARE, MEDICAID, SELFPAY ==
[2022-12-19 08:19] LABS: ALB/GLOB Ratio 0.9 RATIO (0.9-2.4); AST(SGOT) 12 U/L (15-37); Alanine Aminotransfer ALT/SGPT 27 U/L (16-61); Albumin, Serum 3.7 g/dL (3.2-5.0); Alkaline Phosphatase 112 U/L (45-117); Anion Gap 4 (5-15); BUN 15 mg/dL (7-18); Chloride 102 mmol/L (98-107); Creatinine, Serum 0.94 mg/dL (0.70-1.30); EST Glomerular Filtration Rate 85 mL/min (>60); Est Glom Filt Rate - Afr Amer 103 mL/min (>60); Globulin 3.9 g/dL (2.2-4.2); Glucose 130 mg/dL (74-106); Potassium 4.3 mmol/L (3.5-5.1); Protein, Total 7.6 g/dL (6.4-8.2); Sodium Level 134 mmol/L (136-145)
[2022-12-22 11:09] LABS: KEPPRA (LEVETIRACETAM) 33.4 ug/mL (10.0-40.0)
== END | disposition home or self-care (01) ==
LOC: LAB 07:37
PROVIDERS: PCP Family Medicine Geriatric Medicine; Referring Provider Psychiatry & Neurology Neurology; Visit Provider Psychiatry & Neurology Neurology
DX: G40.909 Epilepsy, unspecified, not intractable, without status epilepticus (principal)
CPT/HCPCS: 36415; 80053; 80177; 80184; 82140

== ENCOUNTER → 2023-05-01 | Outpatient (CLI) | payer MEDICARE, MEDICAID, SELFPAY ==
[2023-05-01 12:44] LABS: Absolute Lymphocyte Count 2.71 X10^3/uL (0.83-4.51); Basophil# 0.06 X10^3/uL; Basophil% 0.6 % (0-1); Eosinophil# 0.31 X10^3/uL; Eosinophils% 3.1 % (0-5); Hematocrit 41.6 % (40-54); Hemoglobin 14.3 g/dL (13.0-16.5); Lymphocyte # 2.71 X10^3/ul (0.83-4.51); Lymphocyte % 27.1 % (19-41); Mean Corp Hgb Conc 34.4 g/dL (32-36); Mean Corpuscular Hgb 29.9 pg (27.0-32.0); Mean Corpuscular Volume 86.8 fL (80-94); Mean Platelet Vol. 9.1 fl (6.2-12.0); Monocyte# 0.88 X10^3/uL; Monocyte% 8.8 % (0-10); NRBC Flagged by Analyzer 0 % (0-5); Neutrophil # 6.02 X10^3/uL (2.7-7.7); Neutrophil % 60.2 % (47-70); Platelet Count 318 K/mm3 (150-450); RBC Distribution Width CV 11.9 % (11.6-14.6); RBC Distribution Width SD 38.1 fl (35.1-43.9); Red Blood Count 4.79 M/mm3 (4.6-6.2)
[2023-05-01 13:13] LABS: Vitamin D,25 Hydroxy 59.6 ng/mL
[2023-05-01 14:04] LABS: Microalbumin:Creatinine Ratio 33.3 mg/g CRE (<30 mg/g CRE)
[2023-05-01 14:08] LABS: ALB/GLOB Ratio 1.1 RATIO (0.9-2.4); AST(SGOT) 17 U/L (15-37); Alanine Aminotransfer ALT/SGPT 26 U/L (16-61); Albumin, Serum 3.6 g/dL (3.2-5.0); Alkaline Phosphatase 99 U/L (45-117); Anion Gap 7 (5-15); BUN 16 mg/dL (7-18); BUN/Creat Ratio 16.6 RATIO (10-20); Calcium,Total 8.9 mg/dL (8.5-10.1); Chloride 98 mmol/L (98-107); Cholesterol 107 mg/dL (200); Creatinine, Serum 0.96 mg/dL (0.70-1.30); EST Glomerular Filtration Rate 82 mL/min (>60); Est Glom Filt Rate - Afr Amer 100 mL/min (>60); Globulin 3.3 g/dL (2.2-4.2); Glucose 96 mg/dL (74-106); High Density Lipoprotein 38 mg/dL; Potassium 4.2 mmol/L (3.5-5.1); Protein, Total 6.9 g/dL (6.4-8.2); Sodium Level 129 mmol/L (136-145); Thyroid Stim Hormone (TSH) 3.02 uIU/mL (0.358-3.74); Triglycerides 120 mg/dL; Very Low Density Lipoprotein 24 mg/dL (5-40)
== END | disposition home or self-care (01) ==
LOC: POLAB3 11:44
PROVIDERS: PCP Family Medicine Geriatric Medicine; Visit Provider Family Medicine Geriatric Medicine
DX: Z12.5 Encounter for screening for malignant neoplasm of prostate (principal); E11.65 Type 2 diabetes mellitus with hyperglycemia; R53.83 Other fatigue; E78.5 Hyperlipidemia, unspecified; E55.9 Vitamin D deficiency, unspecified
CPT/HCPCS: 36415; 80053; 80061; 82043; 82306; 82570; 83036; 84443; 85025

== ENCOUNTER → 2023-06-12 | Outpatient (CLI) | payer MEDICARE, MEDICAID, SELFPAY ==
[2023-06-12 07:50] LABS: Hematocrit 45.8 % (40-54); Hemoglobin 15.6 g/dL (13.0-16.5); Mean Corp Hgb Conc 34.1 g/dL (32-36); Mean Corpuscular Hgb 30.2 pg (27.0-32.0); Mean Corpuscular Volume 88.8 fL (80-94); Platelet Count 277 K/mm3 (150-450); RBC Distribution Width CV 12.1 % (11.6-14.6); RBC Distribution Width SD 39.6 fl (35.1-43.9); Red Blood Count 5.16 M/mm3 (4.6-6.2); White Blood Count 10.1 K/mm3 (4.4-11.0)
[2023-06-12 08:21] LABS: AST(SGOT) 19 U/L (15-37); Alanine Aminotransfer ALT/SGPT 27 U/L (16-61); Albumin, Serum 3.8 g/dL (3.2-5.0); Alkaline Phosphatase 101 U/L (45-117); Anion Gap 7 (5-15); BUN 15 mg/dL (7-18); BUN/Creat Ratio 14.2 RATIO (10-20); Calcium,Total 9.3 mg/dL (8.5-10.1); Chloride 102 mmol/L (98-107); Creatinine, Serum 1.06 mg/dL (0.70-1.30); EST Glomerular Filtration Rate 74 mL/min (>60); Est Glom Filt Rate - Afr Amer 89 mL/min (>60); Globulin 3.7 g/dL (2.2-4.2); Glucose 128 mg/dL (74-106); Potassium 4.1 mmol/L (3.5-5.1); Protein, Total 7.5 g/dL (6.4-8.2); Sodium Level 137 mmol/L (136-145)
[2023-06-14 09:09] LABS: KEPPRA (LEVETIRACETAM) 18.9 ug/mL (10.0-40.0)
== END | disposition home or self-care (01) ==
LOC: LAB 07:34
PROVIDERS: PCP Family Medicine Geriatric Medicine; Referring Provider Psychiatry & Neurology Neurology; Visit Provider Psychiatry & Neurology Neurology
DX: G40.909 Epilepsy, unspecified, not intractable, without status epilepticus (principal)
CPT/HCPCS: 36415; 80053; 80177; 80184; 82140; 85027

== ENCOUNTER → 2023-12-05 | Outpatient (CLI) | payer MEDICARE, MEDICAID, SELFPAY ==
[2023-12-05 07:56] LABS: Absolute Lymphocyte Count 2.32 X10^3/uL (0.83-4.51); Absolute Neutrophil Count 5.7 X10^3/uL (2.0-7.7); Basophil# 0.05 X10^3/uL; Basophil% 0.5 % (0-1); Eosinophil# 0.34 X10^3/uL; Eosinophils% 3.6 % (0-5); Hematocrit 43.5 % (40-54); Hemoglobin 14.6 g/dL (13.0-16.5); Lymphocyte # 2.32 X10^3/ul (0.83-4.51); Lymphocyte % 24.9 % (19-41); Mean Corp Hgb Conc 33.6 g/dL (32-36); Mean Corpuscular Hgb 29.5 pg (27.0-32.0); Mean Corpuscular Volume 87.9 fL (80-94); Mean Platelet Vol. 9.1 fl (6.2-12.0); Monocyte# 0.84 X10^3/uL; NRBC Flagged by Analyzer 0 % (0-5); Neutrophil # 5.73 X10^3/uL (2.7-7.7); Neutrophil % 61.6 % (47-70); Platelet Count 286 K/mm3 (150-450); RBC Distribution Width SD 38.6 fl (35.1-43.9); Red Blood Count 4.95 M/mm3 (4.6-6.2); White Blood Count 9.3 K/mm3 (4.4-11.0)
[2023-12-05 08:21] LABS: Ammonia < 10.0 umol/L (11-32)
[2023-12-05 08:44] LABS: AST(SGOT) 14 U/L (15-37); Alanine Aminotransfer ALT/SGPT 26 U/L (16-61); Albumin, Serum 3.5 g/dL (3.2-5.0); Alkaline Phosphatase 90 U/L (45-117); Anion Gap 5 (5-15); BUN 18 mg/dL (7-18); BUN/Creat Ratio 17.5 RATIO (10-20); Calcium,Total 9.2 mg/dL (8.5-10.1); Chloride 100 mmol/L (98-107); Cholesterol 111 mg/dL (200); Creatinine, Serum 1.03 mg/dL (0.70-1.30); EST Glomerular Filtration Rate 76 mL/min (>60); Est Glom Filt Rate - Afr Amer 92 mL/min (>60); Globulin 3.5 g/dL (2.2-4.2); Glucose 133 mg/dL (74-106); High Density Lipoprotein 41 mg/dL; PSA,Total- Diagnostic 1.25 ng/mL (0.0-4.0); Potassium 4.1 mmol/L (3.5-5.1); Sodium Level 132 mmol/L (136-145); T4 Free Direct 0.92 ng/dL (0.76-1.46); Triglycerides 99 mg/dL; Very Low Density Lipoprotein 20 mg/dL (5-40)
[2023-12-05 08:51] LABS: Vitamin B12 564 pg/mL (211-911)
[2023-12-05 08:51] LABS: Vitamin D,25 Hydroxy 61.7 ng/mL
[2023-12-06 04:08] LABS: PROLACTIN 34.3 ng/mL (3.6-25.2)
[2023-12-07 12:09] LABS: Vitamin D 1,25-Dihydroxy 43.6 pg/mL (24.8-81.5)
[2023-12-07 18:09] LABS: KEPPRA (LEVETIRACETAM) 21.2 ug/mL (10.0-40.0)
== END | disposition home or self-care (01) ==
PROVIDERS: PCP Family Medicine; Referring Provider Registered Nurse; Visit Provider Psychiatry & Neurology Neurology
DX: F20.9 Schizophrenia, unspecified (principal); G40.909 Epilepsy, unspecified, not intractable, without status epilepticus; E11.9 Type 2 diabetes mellitus without complications; Z79.899 Other long term (current) drug therapy; E55.9 Vitamin D deficiency, unspecified; N40.0 Benign prostatic hyperplasia without lower urinary tract symptoms; E53.8 Deficiency of other specified B group vitamins; E03.9 Hypothyroidism, unspecified
CPT/HCPCS: 36415; 80053; 80061; 80177; 80184; 82140; 82306; 82607; 82652; 84146; 84153; 84439; 84443; 85025

== ENCOUNTER → 2024-01-08 | Outpatient (CLI) | payer MEDICARE, MEDICAID, SELFPAY ==
[2024-01-08 09:10] LABS: Sodium Level 138 mmol/L (136-145)
[2024-01-09 14:45] LABS: PROLACTIN 26.2 ng/mL (3.6-25.2)
== END | disposition home or self-care (01) ==
PROVIDERS: PCP Family Medicine; Referring Provider Registered Nurse; Visit Provider Registered Nurse
DX: Z79.899 Other long term (current) drug therapy (principal)
CPT/HCPCS: 36415; 84146; 84295

== ENCOUNTER 2024-05-22 19:19 | Emergency (ER) | payer MEDICARE, MEDICAID, SELFPAY ==
[2024-05-22 19:21] VITALS: BP 205/82; PULSE 90; RESP 20; TEMP 36.2; O2SAT 95
[2024-05-22 19:23] VITALS: BMI 35.2
--- NOTE | 2024-05-22 19:36 | EDS_ITS ---
HPI History of Present Illness Chief Complaint: Fall Detail of Chief Complaint: Concern for injury to left hip lower back status post fall Informant: other (Attending from [facility]) Limited: other (Nonverbal) Onset/Context/Timing Onset: Today Mechanism/Context: Blunt Injury and Fall Location of pain/injuries: Left hip Quality of Pain: - (Unable to determine) Location: Per attendee points to the left iliac buttocks low back region Current Severity: Unable to determine Maximum Severity: Unable to determine Worsened by: Remember to determine Relieved by: Unable to determine Associated Symptoms Associated Symptoms: Negative for Inability to ambulate Narrative Narrative: Patient is a 69-year-old male who is nonverbal with cognitive impairment who was at an outing. He fell. He reportedly had pain in the left hip low back area. No other history is available Prior similar symptoms: No [facility] Medical History Developmental non-verbal disorder Vitamin B12 deficiency Epilepsy, unspecified, not intractable, without status epilepticus Schizophrenia Seizure disorder Hyperlipidemia HTN (hypertension) Diabetes mellitus, type II Home Medications ?Medication ?Instructions ?Recorded ?Last Taken ?Type loratadine 10 mg tablet 10 mg PO DAILY PRN allergies 07/16/16 Unknown History omega 2-ndu-pri-fish oil 300 1 ea PO BID 07/16/16 Unkn own History mg-1,000 mg capsule risperidone 3 mg tablet 3 mg PO QHS 07/16/16 Unknown History atorvastatin 40 mg tablet 40 mg PO QHS 11/27/19 Unknow n History metformin 1,000 mg tablet 1,000 mg PO BID 11/27/19 Unk nown History chlorhexidine gluconate 0.12 % 15 ml buccal DAILY 11/12 Unknown History mouthwash fluticasone propionate 50 1 spray intranasal DAILY 11/12 Unknown History mcg/actuation nasal spray,suspension multivitamin 1 tab PO DAILY 12/02/19 Unkn own History polyethylene glycol 3350 17 gram 17 g PO BID 12/02/19 Unknown History oral powder packet tamsulosin 0.4 mg capsule 0.4 mg PO DAILY 12/02/19 Unk nown History cholecalciferol (vitamin D3) 1,250 1,250 mcg PO QMONTH #1 cap 11/28/23 Unknown Rx mcg (50,000 unit) capsule levetiracetam 1,000 mg tablet 1,000 mg PO BID #60 tabs 11/28/23 Unknown Rx levetiracetam 250 mg tablet 250 mg PO BID #60 tabs 07/17 Unknown Rx levothyroxine 50 mcg tablet 50 mcg PO QDAY 11/28/23 Un known History phenobarbital 60 mg tablet 120 mg (2 x 60 mg) PO QHS # 56 tabs 11/28/23 Unknown Rx mecobalamin (vitamin B12) 1,000 1,000 mcg PO DAILY #30 tabs 12/24/23 Unknown Rx mcg chewable tablet (B12 Active) Allergy/AdvReac Type Severity Reaction Status Date / Time No Known Allergies Allergy Verified 05/22/24 19:21 Surgical History No history of previous surgery Social History housing: other details: retirement Smoking Status: Never smoker Electronic Cigarette Use: not used second hand exposure: No alcohol intake: never substance use type: does not use seatbelt use: always ROS ROS ED Review of Systems ROS Unobtainable: other Details: Nonverbal Constitutional Constitutional ED: Reports chills EXAM Physical Exam Const Vital Signs: 05/22/24 19:21 Temperature 97.2 F L Temperature Source Temporal Pulse Rate 90 Respiratory Rate 20 H Blood Pressure 205/82 H Blood Pressure Mean 123 Pulse Ox 95 Oxygen Delivery Method Room Air Positive well nourished and well developed Constitutional Narrative: BMI greater than 30 General Appearance ED: well developed and NAD HEENT atraumatic; Negative for tenderness Nose: Negative for septum abnormal Eyes PERRL and EOMs intact bilaterally Neck full ROM General: Negative for tenderness Resp normal respiratory effort Cardio regular rhythm and S1 normal heart sound GI normal to inspection, nondistended, normoactive bowel sounds, non-tender, non- distended and no masses Back/Spine normal to inspection and no thoracic nor lumbar tenderness Extremity normal to inspection and full ROM Neuro CN's II-XII intact bilaterally, moves all extremities, no focal motor deficits and no sensory deficits noted Neuro Narrative: Patient's gait was observed. He has no limp. He is able to bend forward and backwards. Able to rotate to the right and left. There is no grimacing or indication he is in pain. Psych Psych Narrative: Unable to determine. He is very happy in appearance Skin no rashes or lesions noted, no wounds, skin turgor normal and no jaundice MDM MDM MDM Narrative Medical decision making narrative: Patient sent for evaluation for possible hip low back injury. Based on his physical exam no limitation with movement able to ambulate without difficulty in my opinion radiologic imaging is not indicated. Recommended ice and Tylenol. Since he is diabetic would not recommend NSAIDs. History & Record Review Additional record(s) reviewed:: Prior inpatient record (Admitted for COVID October 2022. Dr. Mckeon's discharge summary was reviewed.), Prior outpatient record (Multiple office visits 2019, 2121 for seizure disorder) and Prior ED visit (2016 for unintentional poisoning of antiepileptic) Discharge Plan Triage Chief Complaint: Fall ED Provider: Chet Grover Dx/Rx/DC Orders Clinical Impression: Injury due to fall, Epilepsy, unspecified, not intractable, without status epilepticus, Back pain, Acute pain of left hip, Developmental non-verbal disorder Instructions: ED Back and Neck Pain, General Prescriptions: No Action metformin 1,000 mg tablet 1,000 mg PO BID atorvastatin 40 mg tablet 40 mg PO QHS chlorhexidine gluconate 0.12 % mouthwash 15 ml BUCCAL DAILY multivitamin Tablet 1 tab PO DAILY polyethylene glycol 3350 17 gram powder in packet 17 g PO BID fluticasone propionate 50 mcg/actuation spray,suspension 1 spray INTRANASAL DAILY Rx Instructions: administer into each nostril tamsulosin 0.4 mg capsule 0.4 mg PO DAILY levothyroxine 50 mcg tablet 50 mcg PO QDAY levetiracetam 250 mg tablet 250 mg PO BID Qty: 60 6RF Rx Instructions: Take with levetiracetam 1000mg orally twice daily levetiracetam 1,000 mg tablet 1,000 mg PO BID Qty: 60 6RF phenobarbital 60 mg tablet 120 mg PO QHS Qty: 56 5RF cholecalciferol (vitamin D3) 1,250 mcg (50,000 unit) capsule 1,250 mcg PO QMONTH Qty: 1 6RF risperidone 3 MG tablet 3 mg PO QHS loratadine 10 MG tablet 10 mg PO DAILY PRN omega 6-cck-jfz-fish oil 1 EACH capsule 1 ea PO BID B12 Active 1,000 mcg tablet,chewable 1,000 mcg PO DAILY Qty: 30 7RF Primary Care Provider: Dean Felipe Chi Referrals: Dean Felipe Chi, MD [Primary Care Provider] - As Needed Activity Restrictions/Additional Instructions: 1. Apply ice to low back left hip area 6 times a day for the next 2 to 3 days Tylenol every 4-6 hours as needed for pain Print Language: Russian Disposition Disposition: Home, Self Care
[2024-05-22 20:02] VITALS: BP 175/90; PULSE 82; RESP 18; TEMP 36.4; O2SAT 96
--- NOTE | 2024-05-22 20:04 | ED.RN ---
attempted to call rTish, the guardian via two different numbers and unable to reach her.
== END 2024-05-22 20:04 | disposition home or self-care (01) ==
LOC: ED 19:53
PROVIDERS: Emergency Provider Emergency Medicine; PCP Family Medicine Geriatric Medicine; Visit Provider Emergency Medicine
DX: M25.552 Pain in left hip (principal); F20.9 Schizophrenia, unspecified; G40.909 Epilepsy, unspecified, not intractable, without status epilepticus; E11.9 Type 2 diabetes mellitus without complications; M54.50 Low back pain, unspecified; W19.XXXA Unspecified fall, initial encounter; I10 Essential (primary) hypertension; E78.5 Hyperlipidemia, unspecified; R41.89 Other symptoms and signs involving cognitive functions and awareness; Z79.84 Long term (current) use of oral hypoglycemic drugs; Z79.899 Other long term (current) drug therapy
CPT/HCPCS: 99282

== ENCOUNTER → 2024-05-29 | Outpatient (CLI) | payer MEDICARE, MEDICAID, SELFPAY ==
--- NOTE | 2024-05-29 15:49 | RAD_ITS ---
PROCEDURE: HIP, UNI W/ PELVIS 2-3 VIEWS REASON FOR EXAM: Pain following recent fall. TECHNIQUE: Three views were obtained. COMPARISON: None. FINDINGS: No fracture. No suspicious bone lesion. Normal alignment. Calcified phleboliths are seen in the pelvis. 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 RAD/HIP, UNI W/ Pelvis 2-3 Views IMPRESSION: Degenerative changes. Reading Location: [id number]
== END | disposition home or self-care (01) ==
PROVIDERS: PCP Family Medicine; Referring Provider Family Medicine; Visit Provider Family Medicine
DX: M25.551 Pain in right hip (principal)
CPT/HCPCS: 73502

== ENCOUNTER → 2024-06-18 | Outpatient (CLI) | payer MEDICARE, MEDICAID, SELFPAY ==
[2024-06-18 10:46] LABS: Hematocrit 42.2 % (40-54); Hemoglobin 14.5 g/dL (13.0-16.5); Mean Corp Hgb Conc 34.4 g/dL (32-36); Mean Corpuscular Hgb 30.1 pg (27.0-32.0); Mean Corpuscular Volume 87.7 fL (80-94); Platelet Count 266 K/mm3 (150-450); RBC Distribution Width CV 12.3 % (11.6-14.6); RBC Distribution Width SD 39.8 fl (35.1-43.9); Red Blood Count 4.81 M/mm3 (4.6-6.2); White Blood Count 6.4 K/mm3 (4.4-11.0)
[2024-06-18 11:20] LABS: Ammonia 16.1 umol/L (16-60)
[2024-06-18 11:22] LABS: ALB/GLOB Ratio 1.3 RATIO (0.9-2.4); AST(SGOT) 47 U/L (<=37); Alanine Aminotransfer ALT/SGPT 31 U/L (<=46); Alkaline Phosphatase 91 U/L (40-129); Anion Gap 12 (5-15); BUN 16 mg/dL (4-19); BUN/Creat Ratio 17.6 RATIO (10-20); Calcium,Total 9.4 mg/dL (7.6-11.0); Carbon Dioxide 27.3 mmol/L (21.0-32.0); Chloride 98 mmol/L (98-108); Creatinine, Serum 0.91 mg/dL (0.70-1.20); EST Glomerular Filtration Rate 90 (>60); Glucose 119 mg/dL (70-99); Potassium 4.4 mmol/L (3.3-5.1); Sodium Level 138 mmol/L (133-145); Total Bilirubin 0.21 mg/dL (0.00-1.30)
[2024-06-20 16:09] LABS: KEPPRA (LEVETIRACETAM) 27.6 ug/mL (10.0-40.0)
== END | disposition home or self-care (01) ==
LOC: MTLAB 07:13
PROVIDERS: PCP Family Medicine; Referring Provider Psychiatry & Neurology Neurology; Visit Provider Psychiatry & Neurology Neurology
DX: G40.909 Epilepsy, unspecified, not intractable, without status epilepticus (principal)
CPT/HCPCS: 36415; 80053; 80177; 80184; 82140; 85027

== ENCOUNTER → 2024-07-15 | Outpatient (CLI) | payer MEDICARE, MEDICAID, SELFPAY ==
[2024-07-15 10:29] LABS: Hemoglobin A1c 6.3 % (<=5.6)
== END | disposition home or self-care (01) ==
LOC: MTLAB 08:06
PROVIDERS: PCP Family Medicine; Referring Provider Family Medicine; Visit Provider Family Medicine
DX: E11.9 Type 2 diabetes mellitus without complications (principal); E03.9 Hypothyroidism, unspecified
CPT/HCPCS: 36415; 83036; 84443

== ENCOUNTER → 2024-10-15 | Outpatient (CLI) | payer MEDICARE, MEDICAID, SELFPAY ==
[2024-10-15 10:45] LABS: Color, Urine Yellow (Yellow); Glucose, Dipstick Normal (Normal); Ketone-Dipstick Negative (Negative); Leukocyte Esterase-Dipstick Negative /ul (Negative); Nitrite-Dipstick Negative (Negative); Occult Blood-Urine Negative /ul (Negative); Protein-Dipstick 15 mg/dl (Negative); Specific Gravity, Urine 1.010 (1.002-1.030); Urine Bilirubin Dipstick Negative (Negative)
[2024-10-16 08:09] LABS: PROLACTIN 27.6 ng/mL (3.6-25.2)
== END | disposition home or self-care (01) ==
PROVIDERS: PCP Family Medicine; Referring Provider Registered Nurse; Visit Provider Registered Nurse
DX: Z79.899 Other long term (current) drug therapy (principal)
CPT/HCPCS: 36415; 81002; 84146

== ENCOUNTER 2024-12-19 12:02 | Emergency (ER) | payer MEDICARE, MEDICAID, SELFPAY ==
[2024-12-19 12:03] VITALS: BP 187/81; PULSE 81; RESP 18; TEMP 36.7; O2SAT 98; BMI 34.5
--- NOTE | 2024-12-19 12:15 | ED.RN ---
Vijay Anaya, rn field case manager from counseling center at bedside to help answer questions states: patient dispayed increased confusion last week and was sent to PCP who diagnosed with hypertension. patient was prescribed and taking amlodipine and blood pressure stayed within normal limits since Sunday. Today routine blood pressure was taken this morning and it was elevated. Staff called Dr. Lynn's office and they advised to come and be seen at the ED for evaluation.
--- OUTSIDE RECORDS SUMMARY | 2024-12-19 12:34 | XMS RPT_ITS | CCD ---
Demographics Address [facility] [address] [place] [address] Preferred Language en Marital Status Single Moravian Affiliation Unknown Race White Ethnic Group Not or Lati no Author Organization [facility] Care Team Providers Care Liner Helper Name Role Phone Dr. Dean Felipe Chi Primary Care Provider Matteo, Dr. Dean Mathis Referring Provider Tevin OFFSET ASSISTANT PRESS OPERATOR, OFFSET ASSISTANT PRESS OPERATOR-C Payal Attending Provider Matteo, Dr. Dean Mathis Primary Care Provider [phone] Jefferson Lazar Emergency Provider [phone] Alice Mckeon Attending Provider Dr. Alice Mckeon Admit Provider Dr. Alice Mckeon Other Provider Matteo, Dr. Dean Mathis Referring Provider Dr. Vini Feliciano Attending Provider Dr. Dean Felipe Chi Primary Care Provider [phone] Matteo, Dr. Dean Mathis Referring Provider Dr. Vini Feliciano Attending Provider Dr. Dean Felipe MD, Chi Primary Care Provider [phone] Dr. Chet Grover MD Attending Provider Dr. Chet Grover MD Emergency Provider Dr. Dean Felipe MD, Chi Referring Provider [phone] Vini Feliciano MD Attending Provider [phone] Eddi Lynn MD Primary Care Provider [phone] Eddi Lynn MD Attending Provider Eddi Lynn MD Referring Provider Kyle ROMO, Dr. Martini Referring Provider Suze ROMO, Yonyon Primary Care Provider Suze ROMO, Eddi Attending Provider [phone] Suze ROMO, Eddi Referring Provider Imer OFFSET ASSISTANT PRESS OPERATOR-C, Aydee Attending Provider Imer OFFSET ASSISTANT PRESS OPERATOR-C, Aydee Referring Provider Suze ROMO, [facility] Provider Matteo ROMO, Dr. Dean Mathis Referring Provider Kyle ROMO, Dr. Martini Attending Provider Suze, Chalon Primary Care Unavailable Baddour, Vini Attending Unavailable Matteo, Dean Chi Referring Unavailable Grover, Chet Attending Unavailable Matteo, Dean Chi Primary Care Unavailable Suze, Chalon Primary Care Unavailable Imer OFFSET ASSISTANT PRESS OPERATOR, Aydee Referring Unavailable Imer OFFSET ASSISTANT PRESS OPERATOR, Aydee Attending Unavailable Suze, Chalon Primary Care Unavailable Baddour, Vini Attending Unavailable Imer OFFSET ASSISTANT PRESS OPERATOR, Aydee Referring Unavailable Suze, Chalon Primary Care Unavailable Imer OFFSET ASSISTANT PRESS OPERATOR, Aydee Referring Unavailable Imer OFFSET ASSISTANT PRESS OPERATOR, Aydee Attending Unavailable Suze, Chalon Referring Unavailable Suze, Chalon Attending Unavailable Suze, Chalon Primary Care Unavailable Baddour, Vini Referring Unavailable Baddour, Vini Attending Unavailable Suze, Chalon Primary Care Unavailable Suze, Chalon Referring Unavailable Suze, Chalon Attending Unavailable Suze, Chalon Primary Care Unavailable Baddour, Vini Attending Unavailable Matteo, Dean Chi Referring Unavailable Matteo, Dean Chi Primary Care Unavailable Medications Current Medications Medication Drug Class(es) Dates Sig (Normalized) Sig (Original) atorvastatin 40 mg oral tablet (14 sources) HMG-CoA Reductase Inhibitor Start: 11-27-2019 take 1 tablet by mouth at bedtime Atorvastatin 40 mg tablet Active 40 mg PO AT BEDTIME November 27, 2019 12:00am chlorhexidine gluconate 1.2 mg/ml mouthwash (15 sources) Start: 11-26-2024 Chlorhexidine Gluconate 0.12 % mouthwash Active 15 mL BUCCAL TWICE A DAY November 26, 2024 10:38am Start: 12-02-2019 End: 11-26-2024 Chlorhexidine Gluconate 0.12 % mouthwash Discontinued 15 mL BUCCAL DAILY December 02, 2019 12:00am November 26, 2024 10:42am Kremlin 7-Kky-Ocb-Fish Oil (14 sources) Start: 07-16-2016 Kremlin 3-Dha-Ep a-Fish Oil Active 1 EACH PO TWICE A DAY July 16, 2016 8:26am Start: 07-16-2016 take 1 capsule by [facility] twice daily Kremlin 4-Fwu-Oiz-Fish Oil 1 EACH capsule Active 1 NMA PO TWICE A DAY July 16, 2016 12:00am Start: 07-16-2016 Kremlin 3-Dha-Ep a-Fish Oil Active 1 EACH PO TWICE A DAY July 15, 2016 11:00pm Start: 07-16-2016 Kremlin 3-Dha-Ep a-Fish Oil Active 1 EACH PO TWICE A DAY July 16, 2016 12:00am fluticasone propionate 0.05 mg/actuat metered dose nasal spray (14 sources) Corticosteroid Start: 12-02-2019 Fluticasone Pr opionate 50 mcg/actuation spray,suspension Active 1 NMA INTRANASAL DAILY December 02, 2019 12:00am administer into each nostril Start: 12-02-2019 take 1 spray(s) nasa l route once daily Fluticasone Propionate Active 1 SPRAY INTRANASAL DAILY December 02, 2019 12:00am administer into each nostril levETIRAcetam 1000 mg oral tablet (20 sources) Start: 11-26-2024 take 1 tablet by mouth twice daily Levetiracetam 1,000 mg tablet Active 1000 mg PO TWICE A DAY November 26, 2024 12:00am Start: 05-28-2024 End: 11-26-2024 take 2 tablets by mouth twice daily Levetiracetam 750 mg tablet Discontinued 1500 mg PO TWICE A DAY 120 7 May 28, 2024 1:00am November 26, 2024 10:42am Start: 11-28-2023 End: 05-28-2024 take 4 tablets by mouth twice daily Levetiracetam 250 mg tablet Discontinued 250 mg PO TWICE A DAY 60 6 November 28, 2023 12:00am May 28, 2024 1:12pm Take with levetiracetam 1000mg orally twice daily Start: 07-27-2021 End: 05-28-2024 take 1 tablet by mouth twice daily Levetiracetam 1,000 mg tablet Discontinued 1000 mg PO TWICE A DAY 60 November 28, 2023 9:58am May 28, 2024 1:12pm Start: 07-16-2016 End: 07-27-2021 take 1 tablet by mouth twice daily Levetiracetam 750 mg tablet Discontinued 750 mg PO TWICE A DAY 60 February 01, 2021 2:18pm July 27, 2021 1:34pm levothyroxine sodium 0.05 mg oral tablet (20 sources) l-Thyroxine Start: 11-28-2023 take 1 tablet by mouth once daily Levothyroxine 50 mcg tablet Active 50 ug PO daily November 28, 2023 12:00am Start: 12-02-2019 End: 11-28-2023 take 1 capsule by mouth once daily Levothyroxine 50 mcg capsule Discontinued 50 ug PO DAILY December 02, 2019 12:00am November 28, 2023 9:13am Start: 11-27-2019 End: 12-02-2019 take 1 tablet by mouth once daily Levothyroxine (Synthroid) 25 mcg tablet Discontinued 25 ug PO DAILY November 27, 2019 12:00am December 02, 2019 11:12am loratadine 10 mg oral tablet (14 sources) Start: 07-16-2016 take 1 tablet by mouth once daily as needed Loratadine 10 MG tablet Active 10 mg PO DAILY NEEDED July 16, 2016 12:00am allergies metFORMIN hydrochloride 1000 mg oral tablet (14 sources) Biguanide Start: 11-27-2019 take 1 tablet by mouth twice daily Metformin 1,000 mg tablet Active 1000 mg PO TWICE A DAY November 27, 2019 12:00am Multivitamin preparation (10 sources) Start: 12-02-2019 take 1 tablet by mouth once daily Multivitamin Active 1 TABLET PO DAILY December 02, 2019 11:14am Start: 12-02-2019 take 1 tablet by vincent th once daily Multivitamin Active 1 TABLET PO DAILY December 01, 2019 11:00pm Start: 12-02-2019 take 1 tablet by vincent th once daily Multivitamin Active 1 TABLET PO DAILY December 02, 2019 12:00am olmesartan medoxomil 40 mg oral tablet (2 sources) Angiotensin 2 Receptor Ananda Start: 11-26-2024 End: 11-26-2024 take 1 tablet by mouth once daily in the morning Olmesartan 40 mg tablet Active 40 mg PO EVERY MORNING 30 November 26, 2024 10:57am polyethylene glycol 3350 91211 mg powder for oral solution (14 sources) Osmotic Laxative Start: 12-02-2019 take 17 g by mouth twice daily Polyethylene Glycol 3350 17 gram powder in packet Active 17 g PO TWICE A DAY December 02, 2019 12:00am risperiDONE 3 mg oral tablet (14 sources) Atypical Antipsychotic Start: 07-16-2016 take 1 tablet by mouth at bedtime Risperidone 3 MG tablet Active 3 mg PO AT BEDTIME July 16, 2016 12:00am tamsulosin hydrochloride 0.4 mg oral capsule (14 sources) alpha-Adrenergic Ananda Start: 12-02-2019 take 1 capsule by mouth once daily Tamsulosin 0.4 mg capsule Active 0.4 mg PO DAILY December 02, 2019 12:00am Completed/Discontinued Medications Medication Drug Class(es) Dates Sig (Normalized) Sig (Original) calcium polycarbophil 625 mg oral tablet (14 sources) Start: 07-16-2016 End: 12-02-2019 take 1 tablet by mouth twice daily Calcium Polycarbophil 625 MG tablet Discontinued 625 mg PO TWICE A DAY July 16, 2016 12:00am December 02, 2019 11:11am cholecalciferol 1.25 mg oral capsule (20 sources) Vitamin D Start: 02-01-2021 End: 05-28-2024 take 1 capsule by mouth every month Cholecalciferol (Vitamin D3) 1,250 mcg (50,000 unit) capsule Discontinued 1250 ug PO EVERY MONTH 03 31November 28, 2023 9:59am May 28, 2024 1:16pm Start: 08-03-2020 End: 02-01-2021 take 1 capsule by mouth every week Cholecalciferol (Vitamin D3) 1,250 mcg (50,000 unit) capsule Discontinued 1250 ug PO EVERY WEEK 06 29August 03, 2020 12:00am February 01, 2021 2:20pm dexamethasone 4 mg oral tablet (8 sources) Corticosteroid Start: 11-05-2022 End: 11-28-2022 take 6 mg by mouth once daily Dexamethasone 4 mg Tablet Discontinued 6 mg PO DAILY 8 November 05, 2022 12:00am November 28, 2022 9:05am Start: 11-05-2022 End: 11-28-2022 take 6 mg by mouth once daily Dexamethasone Discontinu ed 6 MG PO DAILY November 05, 2022 12:00am November 28, 2022 9:05am docusate sodium 100 mg oral capsule (14 sources) Start: 07-16-2016 End: 12-02-2019 take 1 capsule by mouth once daily Docusate Sodium 100 MG capsule Discontinued 100 mg PO DAILY July 16, 2016 12:00am December 02, 2019 11:12am docusate sodium 50 mg / sennosides, custodial 8.6 mg oral tablet (14 sources) Start: 12-02-2019 End: 08-03-2020 Sennosides-Docusat e Sodium (Senexon-S) 8.6-50 mg tablet Discontinued 2 NMA PO TWICE A DAY December 02, 2019 12:00am August 03, 2020 1:31pm lisinopril 2.5 mg oral tablet (14 sources) Angiotensin Converting Enzyme Inhibitor Start: 08-03-2020 End: 05-30-2023 take 1 tablet by mouth once daily Lisinopril 2.5 mg tablet Discontinued 2.5 mg PO DAILY August 03, 2020 12:00am May 30, 2023 10:38am mecobalamin 1 mg chewable tablet (20 sources) Start: 02-18-2020 End: 05-28-2024 Mecobalamin (Vitamin B12) (B12 Active) 1,000 mcg tablet,chewable Discontinued 1000 ug PO DAILY 30 7 December 24, 2023 5:02pm May 28, 2024 1:16pm Multivitamin tablet (4 sources) Start: 12-02-2019 End: 11-26-2024 Multivitamin tablet Discontinued 1 {tbl} PO DAILY December 02, 2019 12:00am November 26, 2024 10:42am Start: 12-02-2019 Multivitamin t ablet Active 1 {tbl} PO DAILY December 02, 2019 12:00am Multivitamin With Minerals (10 sources) Start: 07-16-2016 End: 11-27-2019 Multivitamin With Minerals Discontinued 1 EACH PO DAILY July 16, 2016 8:26am November 27, 2019 11:39am Start: 07-16-2016 End: 11-27-2019 Multivitamin With Minerals D iscontinued 1 EACH PO DAILY July 15, 2016 11:00pm November 27, 2019 10:39am Start: 07-16-2016 End: 11-27-2019 Multivitamin With Minerals D iscontinued 1 EACH PO DAILY July 16, 2016 12:00am November 27, 2019 11:39am Multivitamin With Minerals 1 EACH tablet (4 sources) Start: 07-16-2016 End: 11-27-2019 take 1 tablet by mouth once daily Multivitamin With Minerals 1 EACH tablet Discontinued 1 NMA PO DAILY July 16, 2016 12:00am November 27, 2019 11:39am PHENobarbital 60 mg oral tablet (20 sources) Start: 07-16-2016 End: 05-28-2024 take 1 tablet by mouth at bedtime Phenobarbital 60 mg tablet Discontinued 120 mg PO AT BEDTIME 56 2 October 30, 2023 5:36pm November 28, 2023 10:00am Epilepsy without status epilepticus, not intractable Epilepsy, unspecified, not intractable, without status epilepticus Start: 07-16-2016 End: 05-30-2023 take 120 mg by mouth at bedtime Phenobarbital Disconti nued 120 MG PO AT BEDTIME 60 July 14, 2021 1:43pm July 27, 2021 1:36pm simvastatin 10 mg oral tablet (14 sources) HMG-CoA Reductase Inhibitor Start: 07-16-2016 End: 11-27-2019 take 1 tablet by mouth at bedtime Simvastatin 10 MG tablet Discontinued 10 mg PO AT BEDTIME July 16, 2016 12:00am November 27, 2019 11:38am Problems Active Problems Problem Classification Problem Date Documented Date Episodic/Chronic Developmental disorders (4 sources) Nonverbal learning disorder; 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] 05-30-2024 Chronic Diabetes mellitus without complication (1 source) Type 2 diabetes mellitus without complications; Translations: [Type 2 diabetes mellitus without complications] Onset: 07-18-2024 Chronic E Codes: Fall (16 sources) Fall; Translations: [Unspecified fall, initial encounter] 11-04-2022 Episodic Epilepsy; convulsions (20 sources) Epilepsy, not refractory; Translations: [Epilepsy, unspecified, not intractable, without status epilepticus] Onset: 06-22-2024 Chronic Nutritional deficiencies (20 sources) Vitamin D deficiency; Translations: [Vitamin D deficiency, unspecified] Chronic Nutritional deficiencies (20 sources) Cobalamin deficiency; Translations: [Deficiency of other specified B group vitamins] Episodic Other aftercare (1 source) Other chcf (current) drug therapy; Translations: [Other survey associate (current) drug therapy] Onset: 10-21-2024 Episodic Other lower respiratory disease (9 sources) Hypoxemia; Translations: [Hypoxemia] 11-04-2022 Episodic Other lower respiratory disease (3 sources) Hypoxemia; Translations: [Hypoxemia] 11-04-2022 Episodic Other non-traumatic joint disorders (4 sources) Hip pain; Translations: [Pain in left hip] 05-30-2024 Episodic Schizophrenia and other psychotic disorders (1 source) Schizophrenia, unspecified; Translations: [Schizophrenia, unspecified] Onset: 12-27-2023 Chronic Spondylosis; intervertebral disc disorders; other back problems (4 sources) Backache; Translations: [Dorsalgia, unspecified] 05-30-2024 Episodic Viral infection (12 sources) Disease caused by 2019-nCoV; Translations: [COVID-19] 11-04-2022 Episodic Past or Other Problems Problem Classification Problem Date Documented Da te Episodic/Chronic Other injuries and conditions due to external causes (1 source) Encounter for examination and observation following other accident; Translations: [Encounter for examination and observation following other accident] Onset: 06-04-2024 Episodic Other non-traumatic joint disorders (1 source) Pain in right hip; Translations: [Pain in right hip] Onset: 06-09-2024 Episodic Results Test Name Value Interpretation Reference Range Facility Neurology Visit Reporton Neurology Visit Report [facility] [address] [place] [address], [address] [place] [address] OFFICE VISIT Date of Service: 11/26/24 MR#: [id number] Acct: [id number] Name: NAYLA BENNETT Rep #: [id number] : 1955 Provider: Dr. Vini scott MD Age/Sex: 69/M Location: [facility] Status: Signed [facility] Chief Complaint: Details: Interim History: Nayla returns for follow-up visit. He is accompanied by a caregiver from his custodial. He has a history of diabetes mellitus, hyperlipidemia, hypothyroidism, autism, schizophrenia, vitamin D deficiency, vitamin B12 deficiency, and epilepsy. Details regarding his history prior to 2014 are not available. His verbalization is very limited. He is able to read at a third grade level. Details regarding the etiology of his seizures, if known, are unavailable. He has exhibited seizures characterized by staring and disconnection with his surroundings without clonic or tonic activity. These episodes last several seconds each. He does not have associated tongue biting or urinary incontinence. Over recent years, his seizures had generally occurred up to 1-2 times per month. In April and May 2024 he had an increase in his seizure frequency and had about 10 seizures in a 30-day period. His dose of levetiracetam was increased to 750 mg 2 tablets twice daily and the frequency of his seizures has diminished. He has had 3 seizures since his last visit in May 2024. He is taking phenobarbital and levetiracetam and his last levels were in therapeutic ranges. He had mild hyponatremia in the past. He does not drink excessive amounts of water. He is not on a diuretic. His vitamin B12 level was normal, and his vitamin D level was normal (06/2021). There is no reported history of head injury. He takes risperidone and his mood has been stable. He had a fall in April 2024. He has been noted to have hypertension on multiple occasions. He is not taking an antihypertensive medication. Physical Exam: Neuro: The patient is awake; he has bradyphrenia and exhibits a flat affect; gait is mildly slow; no tremor is noted at rest; no rigidity is noted in the wrists Heart: Regular rate and rhythm Neck: No bruits Supplemental Info Brain MRI 12/24/19 Impression There are minor mucosal reactive changes in the ethmoid and sphenoid sinuses and maxillary mucosal retention cysts. This is minimal reactive state without true acute or chronic disease. This does not require further imaging or clinical attention. EEG 01/09/20 This is a normal awake and drowsy EEG study with 1- Hz posterior background rhythm. There were no epileptiform discharges,seizure patters, or lateralizing signs. If over seizure activity is observed clinically or mental satues change is not accounted for by non-seizure etiologies then 24-hr continuous video-EEG monitoring is recommended. Levetiracetam level (02/11/2020): 10.1 (in therapeutic range). Phenobarbital level (02/11/2020): 16.8. CBCD, CMP, TSH, PSA, Vitamin D (04/07/20): WBC 11.3, AST 14, NA 134, Vitamin D 20.4 (Insufficiency) B12 (05/18/20): 466 Labs (07/13/2021): BMP: Sodium 133 (L), glucose 126 (H) Ammonia: Normal Vitamin B12: Normal Vitamin D: Normal Levetiracetam: 8.8 (below therapeutic range of 10???40) Phenobarbital: 16.2 (within therapeutic range) CBC, vitamin D, TSH (10/12/2021): Sodium 134 CBC, CMP, ammonia, vitamin D, TSH (05/25/2022): Sodium 130 (low), glucose 139 (high) Levetiracetam level (05/25/2022): 17.9 (in therapeutic range). Phenobarbital level (05/25/2022): 21.1 (in therapeutic range). Vitamin D, lipid profile (10/25/2022): triglycerides 130 (normal), cholesterol 102 (normal), LDL 40 (normal), VLDL 26 (normal), HDL 36 (low) BMP (11/04/2022): Sodium 128 (low), glucose 152 (high) CBC, CMP, TSH (11/05/2022): Sodium 133 (low), glucose 124 (high), calcium 8.4 (low), AST 63 (high) CBC CMP, hemoglobin A1c, TSH, vitamin D (05/01/2023): Sodium 129 (low), hemoglobin A1c 6 (high), triglycerides 120 (normal), cholesterol 107 (normal), LDL 45 (normal), HDL 38 (low), VLDL 24 (normal) CBC, ammonia, CMP, vitamin D, thiamine, TSH, free T4, B12 (12/05/2023): Sodium 132 (low), glucose 133 (high), ammonia <10 (low) Levetiracetam level (12/05/2023): 21.2 (in therapeutic range) Phenobarbital level (12/05/2023): 16 (in therapeutic range) CBC, CMP (06/18/2024): Glucose 119 (high), AST 47 (high) Levetiracetam level (06/18/2024): 27.6 (in therapeutic range) Phenobarbital level (06/18/2024): 18 (in therapeutic range) Hemoglobin A1c, TSH (07/15/2024): Hemoglobin A1c 6.3 (high) Assessment and Plan Assessment and Plan (1) Epilepsy, unspecified, not intractable, without status epilepticus: Status: Chronic Qualifiers: Epilepsy type: unspecified Qualified Code(s): G40.909 - Epilepsy, unspecified, not intractable, without status epilepticus (2) Vitamin D insufficiency: S (more content not included)... Normal [facility] PROLACTIN 4465on 10-16-2024 PROLACTIN 27.6 ng/mL High 3.6-25.2 [facility] Comment on above: Result Comment: Perf ormed at: [employer] [facility] [address] [id number] [place]: Pacheco Campos PhD, Phone: [phone] Performed By: #### L 3100.5400, L400.2010 ####[facility] [address] [place], [address] Bilirubin Test strip Ql (U)O rdered By: Aydee Willams on 10-15-2024 Bilirubin Ql (U) Negative Negative [facility] Ketones Test strip Ql (U)Ord ered By: Aydee Willams on 10-15-2024 Ketones Ql (U) Negative Negative [facility] Nitrite Test strip Ql (U)Ord ered By: Aydee Willams on 10-15-2024 Nitrite Ql (U) Negative Negative [facility] Protein Test strip Ql (U)Ord ered By: Aydee iWllams on 10-15-2024 Protein Ql (U) 15 mg/dl High Negative [facility] Serum or plasma prolactin me asurement (mass/volume)Ordered By: Aydee Willams on 10-15-2024 Prolactin [Mass/Vol] 27.6 ng/mL High 3.6-25.2 [facility] Comment on above: Performed at: [employer] [facility] [address] [id number] Director: Pacheco Campos PhD, Phone: [phone] Urinalysis, Routine (Dipstic k)on 10-15-2024 BILIRUBIN URINE Negative Normal Negative [facility] Comment on above: Order Comment: CLEAN CATCH Performed By: #### L 0.0, L400.2010 ####[facility] [address] [place], [address] Clarity (U) Clear Normal Clear [facility] Comment on above: Order Comment: CLEAN CATCH Performed By: #### L 0.5399, L4 ####[facility] [address] [place], [address] Color (U) Yellow Normal Yellow [facility] Comment on above: Order Comment: CLEAN CATCH Performed By: #### L 0.5399, L4 ####[facility] [address] [place], [address] GLUCOSE, UR Normal Normal Normal [facility] Comment on above: Order Comment: CLEAN CATCH Performed By: #### L 3099.5399, L4 ####[facility] [address] [place], [address] KETONE UR Negative Normal Negative [facility] Comment on above: Order Comment: CLEAN CATCH Performed By: #### L 3099.5399, L400 ####[facility] [address] [place], [address] LEUK ESTERASE Negative Normal Negative [facility] Comment on above: Order Comment: CLEAN CATCH Performed By: #### L 3099.5399, L400 ####[facility] [address] [place], [address] Nitrite Ql (U) Negative Normal Negative [facility] Comment on above: Order Comment: CLEAN CATCH Performed By: #### L 0.5400, L400 ####[facility] [address] [place], [address] OCCULT BLOOD-UR Negative Normal Negative [facility] Comment on above: Order Comment: CLEAN CATCH Performed By: #### L 3100.5400, L400.2010 ####[facility] [address] [place], [address] pH UR 7.0 Normal 5.0 - 8.0 [facility] Comment on above: Order Comment: CLEAN CATCH Performed By: #### L 3100.5400, L400.2010 ####[facility] [address] [place], [address] PROT DIPSTX 15 mg/dl Abnormal Negative [facility] Comment on above: Order Comment: CLEAN CATCH Performed By: #### L 3100.5400, L400.2010 ####[facility] [address] [place], [address] SP.GR. DIPSTX 1.010 Normal 1.002-1.030 [facility] Comment on above: Order Comment: CLEAN CATCH Performed By: #### L 3100.5400, L400.2010 ####[facility] [address] [place], [address] UROBILI Normal Normal Normal [facility] Comment on above: Order Comment: CLEAN CATCH Performed By: #### L 3100.5400, L400.2010 ####[facility] [address] [place], [address] Urine clarityOrdered By: Samanta Willams on 10-15-2024 Clarity (U) Clear Clear [facility] Urine color determinationOrd ered By: Aydee Willams on 10-15-2024 Color (U) Yellow Yellow [facility] Urine glucose detectionOrder ed By: Aydee Willams on 10-15-2024 Glucose Ql (U) Normal mg/dl Normal [facility] Urine leukocyte esterase det ection by dipstickOrdered By: Aydee Willams on 10-15-2024 Leukocyte esterase Test strip Ql (U) Negative Negative [facility] Urine pHOrdered By: Aydee Willams on 10-15-2024 pH (U) 7.0 [pH] 5.0 - 8.0 [facility] Urine specific gravity measu rementOrdered By: Aydee Willams on 10-15-2024 Specific gravity (U) [Rel density] 1.010 1.002-1.030 [facility] Urine urobilinogen measureme ntOrdered By: Aydee Willams on 10-15-2024 Urobilinogen Ql (U) Normal mg/dl Normal [facility] Hemoglobin A1con 07-15-2024 HbA1c (Bld) [Mass fraction] 6.3 % High <=5.6 [facility] Comment on above: Order Comment: Order Date: 07/10/24 Order Info: 4548-4 - A1C Result Comment: Norm al < 5.7 % Prediabetic 5.7 - 6.4 % Diabetic >or= 6.5 % Please note range changes. Performed By: #### L 501.9985, L507.1393 #### [facility] [address] [place], [place], 601201 Hemoglobin A1c percentageOrd ered By: Eddi Lynn on 07-15-2024 HbA1c (Bld) [Mass fraction] 6.3 % High <5.7 [facility] Comment on above: Normal < 5.7 % Predi abetic 5.7 - 6.4 % Diabetic >or= 6.5 % Please note range changes. TSH DL <= 0.005 mIU/L QnOrde red By: Eddi Lynn on 07-15-2024 TSH Qn 2.660 uIU/mL 0.300-4.200 [facility] Thyroid Stim Hormone (TSH)on 07-15-2024 TSH 2.660 uIU/mL Normal 0.300-4.200 [facility] Comment on above: Order Comment: Order Date: 07/10/24Order Info: 3016-3 - TSH Performed By: #### L 501.9985, L586.9012 ####[facility] [address] [place], [place], [address] KEPPRA (LEVETIRACETAM)on KEPPRA 27.6 ug/mL Normal 10.0-40.0 [facility] Comment on above: Result Comment: Perf ormed at: - [facility] [address] [id number] [place]: Pacheco Campos PhD, Phone: [phone] Performed at: - [facility] [address] [id number] [place]: Vickey Romeo MD, Phone: [phone] Performed By: #### L 503.5510, L500.4050, L3310.0000, L100.0500, L3700.3000 #### [facility] [address] [place], [place], [address] L3700.3000on 06-20-2024 PHENobarbital [Mass/Vol] 18 ug/mL Normal 15-40 [facility] Comment on above: Result Comment: Dete ction Limit = 3 Performed By: #### L 503.5510, L500.4050, L3310.0000, L100.0500, L3700.3000 #### [facility] [address] [place], [place], [id number] Ammoniaon 06-18-2024 Ammonia (P) [Moles/Vol] 16.1 umol/L Normal 16-60 [facility] Comment on above: Performed By: #### L 503.5510, L500.4050, L3310.0000, L100.0500, L3700.3000 #### [facility] [address] [place], [address] Anion gap in Serum or Plasma Ordered By: Vini Feliciano on 06-18-2024 Anion gap [Moles/Vol] 12 mmol/L 5-15 [facility] BUN/creatinine ratioOrdered By: Vini Feliciano on 06-18-2024 Urea nitrogen/Creatinine [Mass ratio] 17.6 mg/mg 10-20 [facility] Bilirubin, totalOrdered By: Vini Feliciano on 06-18-2024 Bilirubin [Mass/Vol] 0.21 mg/dL 0.00-1.30 [facility] CBC-Complete Blood Cnt No Sarahi villela 06-18-2024 Erythrocyte distribution width (RBC) [Ratio] 12.3 % Normal 11.6-14.6 [facility] Comment on above: Performed By: #### L 503.5510, L500.4050, L3310.0000, L100.0500, L3700.3000 #### [facility] [address] [place], [address] Hematocrit (Bld) [Volume fraction] 42.2 % Normal 40-54 [facility] Comment on above: Performed By: #### L 503.5510, L500.4050, L3310.0000, L100.0500, L3700.3000 #### [facility] [address] [place], [address] Hemoglobin (Bld) [Mass/Vol] 14.5 g/dL Normal 13.0-16.5 [facility] Comment on above: Performed By: #### L 503.5510, L500.4050, L3310.0000, L100.0500, L3700.3000 #### [facility] [address] [place], [address] MCH (RBC) [Entitic mass] 30.1 pg Normal 27.0-32.0 [facility] Comment on above: Performed By: #### L 503.5510, L500.4050, L3310.0000, L100.0500, L3700.3000 #### [facility] [address] [place], [address] MCHC (RBC) [Mass/Vol] 34.4 g/dL Normal 32-36 [facility] Comment on above: Performed By: #### L 503.5510, L500.4050, L3310.0000, L100.0500, L3700.3000 #### [facility] [address] [place], [address] MCV (RBC) [Entitic vol] 87.7 fL Normal 80-94 [facility] Comment on above: Performed By: #### L 503.5510, L500.4050, L3310.0000, L100.0500, L3700.3000 #### [facility] [address] [place], [address] Platelet mean volume (Bld) [Entitic vol] 10.0 fL Normal 6.2-12.0 [facility] Comment on above: Performed By: #### L 503.5510, L500.4050, L3310.0000, L100.0500, L3700.3000 #### [facility] [address] [place], [address] Platelets (Bld) [#/Vol] 266 10*3/uL Normal 150-450 [facility] Comment on above: Performed By: #### L 503.5510, L500.4050, L3310.0000, L100.0500, L3700.3000 #### [facility] [address] [place], [address] RBC (Bld) [#/Vol] 4.81 10*6/uL Normal 4.6-6.2 [facility] Comment on above: Performed By: #### L 503.5510, L500.4050, L3310.0000, L100.0500, L3700.3000 #### [facility] [address] [place], [address] RDW SD 39.8 fl Normal 35.1-43.9 [facility] Comment on above: Performed By: #### L 503.5510, L500.4050, L3310.0000, L100.0500, L3700.3000 #### [facility] [address] [place], [address] WBC (Bld) [#/Vol] 6.4 10*3/uL Normal 4.4-11.0 [facility] Comment on above: Performed By: #### L 503.5510, L500.4050, L3310.0000, L100.0500, L3700.3000 #### [facility] [address] [place], [address] Carbon dioxide, total [Moles /volume] in Central venous bloodOrdered By: Vini Feliciano on 06-18-2024 CO2 [Moles/Vol] 27.3 mmol/L 21.0-32.0 [facility] Chloride assayOrdered By: Ra bere Feliciano on 06-18-2024 Chloride [Moles/Vol] 98 mmol/L 98-108 [facility] Comprehensive Metabolic Prof ilon 06-18-2024 Albumin [Mass/Vol] 4.0 g/dL Normal 3.4-4.8 [facility] Comment on above: Performed By: #### L 503.5510, L500.4050, L3310.0000, L100.0500, L3700.3000 #### [facility] [address] [place], [address] Albumin/Globulin [Mass ratio] 1.3 {ratio} Normal 0.9-2.4 [facility] Comment on above: Performed By: #### L 503.5510, L500.4050, L3310.0000, L100.0500, L3700.3000 #### [facility] [address] [place], [address] ALK PHOS 91 U/L Normal 40-129 [facility] Comment on above: Performed By: #### L 503.5510, L500.4050, L3310.0000, L100.0500, L3700.3000 #### [facility] [address] [place], [address] ALT [Catalytic activity/Vol] 31 U/L Normal <=46 [facility] Comment on above: Performed By: #### L 503.5510, L500.4050, L3310.0000, L100.0500, L3700.3000 #### [facility] [address] [place], [address] AST [Catalytic activity/Vol] 47 U/L High <=37 [facility] Comment on above: Performed By: #### L 503.5510, L500.4050, L3310.0000, L100.0500, L3700.3000 #### [facility] [address] [place], [address] Bilirubin [Mass/Vol] 0.21 mg/dL Normal 0.00-1.30 [facility] Comment on above: Performed By: #### L 503.5510, L500.4050, L3310.0000, L100.0500, L3700.3000 #### [facility] [address] [place], [address] BUN/CRE 17.6 RATIO Normal 10-20 [facility] Comment on above: Performed By: #### L 503.5510, L500.4050, L3310.0000, L100.0500, L3700.3000 #### [facility] [address] [place], [address] Calcium [Mass/Vol] 9.4 mg/dL Normal 7.6-11.0 [facility] Comment on above: Performed By: #### L 503.5510, L500.4050, L3310.0000, L100.0500, L3700.3000 #### [facility] [address] [place], [address] Chloride [Moles/Vol] 98 mmol/L Normal 98-108 [facility] Comment on above: Performed By: #### L 503.5510, L500.4050, L3310.0000, L100.0500, L3700.3000 #### [facility] [address] [place], [address] CO2 [Moles/Vol] 27.3 mmol/L Normal 21.0-32.0 [facility] Comment on above: Performed By: #### L 503.5510, L500.4050, L3310.0000, L100.0500, L3700.3000 #### [facility] [address] [place], [address] Creatinine [Mass/Vol] 0.91 mg/dL Normal 0.70-1.20 [facility] Comment on above: Performed By: #### L 503.5510, L500.4050, L3310.0000, L100.0500, L3700.3000 #### [facility] [address] [place], [address] GAP 12 Normal 5-15 [facility] Comment on above: Performed By: #### L 503.5510, L500.4050, L3310.0000, L100.0500, L3700.3000 #### [facility] [address] [place], [address] GFR/1.73 sq M.predicted among non-blacks MDRD (S/P/Bld) [Vol rate/Area] 90 mL/min/{1.73_m2} Normal >60 [facility] Comment on above: Result Comment: mL/m in/1.73m2 CKD-EPI Creatinine Equation (2020) Performed By: #### L 503.5510, L500.4050, L3310.0000, L100.0500, L3700.3000 #### [facility] [address] [place], [address] Globulin (S) [Mass/Vol] 3.0 g/dL Normal 2.2-4.2 [facility] Comment on above: Performed By: #### L 503.5510, L500.4050, L3310.0000, L100.0500, L3700.3000 #### [facility] [address] [place], [address] Glucose [Mass/Vol] 119 mg/dL High 70-99 [facility] Comment on above: Performed By: #### L 503.5510, L500.4050, L3310.0000, L100.0500, L3700.3000 #### [facility] [address] [place], [address] Potassium [Moles/Vol] 4.4 mmol/L Normal 3.3-5.1 [facility] Comment on above: Performed By: #### L 503.5510, L500.4050, L3310.0000, L100.0500, L3700.3000 #### [facility] [address] [place], [address] Sodium [Moles/Vol] 138 mmol/L Normal 133-145 [facility] Comment on above: Performed By: #### L 503.5510, L500.4050, L3310.0000, L100.0500, L3700.3000 #### [facility] [address] [place], [address] T PROT 7.0 g/dL Normal 5.9-8.4 [facility] Comment on above: Performed By: #### L 503.5510, L500.4050, L3310.0000, L100.0500, L3700.3000 #### [facility] [address] [place], [address] Urea nitrogen [Mass/Vol] 16 mg/dL Normal 4-19 [facility] Comment on above: Performed By: #### L 503.5510, L500.4050, L3310.0000, L100.0500, L3700.3000 #### [facility] [address] [place], [address] Erythrocyte distribution wid th ratioOrdered By: Vini Feliciano on 06-18-2024 Erythrocyte distribution width (RBC) [Ratio] 12.3 % 11.6-14.6 [facility] Erythrocyte distribution wid th standard deviationOrdered By: Vini Feliciano on 06-18-2024 Erythrocyte distribution width (RBC) [Entitic vol] 39.8 fL 35.1-43.9 [facility] GFR/1.73 sq M.predicted rahel g non-blacks MDRD (S/P/Bld) [Vol rate/Area]Ordered By: Vini Feliciano on 06-18-2024 Estimated GFR (MDRD) Non-Af Amer 90 >60 [facility] Comment on above: mL/min/1.73m2 CKD-EP I Creatinine Equation (2020) Hematocrit Auto (Bld) [Volum e fraction]Ordered By: Vini Feliciano on 06-18-2024 Hematocrit (Bld) [Volume fraction] 42.2 % 40-54 [facility] Hemoglobin measurementOrdere d By: Vini Feliciano on 06-18-2024 Hemoglobin (Bld) [Mass/Vol] 14.5 g/dL 13.0-16.5 [facility] - Chemistry and C hemistry - challengeOrdered By: Vini Feliciano on 06-18-2024 AST [Catalytic activity/Vol] 47 U/L High <38 [facility] LevetiracetamOrdered By: Yahir Feliciano on 06-18-2024 Levetiracetam (Keppra) Level 27.6 ug/mL 10.0-40.0 [facility] Comment on above: Performed at: [address] [id number] Director: Pacheco Campos PhD, Phone: [phone] at: [facility] [id number] Director: Vickey Romeo MD, Phone: [phone] MCV (mean corpuscular volume ) determinationOrdered By: Vini Feliciano on 06-18-2024 MCV (RBC) [Entitic vol] 87.7 fL 80-94 [facility] Mean corpuscular hemoglobin (MCH) determinationOrdered By: Vini Feliciano on 06-18-2024 MCH (RBC) [Entitic mass] 30.1 pg 27.0-32.0 [facility] Mean corpuscular hemoglobin concentration (MCHC) determinationOrdered By: Vini Feliciano on 06-18-2024 MCHC (RBC) [Mass/Vol] 34.4 g/dL 32-36 [facility] Mean platelet volume determi nationOrdered By: Vini Feliciano on 06-18-2024 Platelet mean volume (Bld) [Entitic vol] 10.0 fL 6.2-12.0 [facility] Platelet countOrdered By: Ra bere Feliciano on 06-18-2024 Platelets (Bld) [#/Vol] 266 10*3/uL 150-450 [facility] Potassium (Unsp spec) [Mass/ Vol]Ordered By: Vini Feliciano on 06-18-2024 Potassium [Moles/Vol] 4.4 mmol/L 3.3-5.1 [facility] Quantitative phenobarbital m easurementOrdered By: Vini Feliciano on 06-18-2024 Phenobarbital Level 18 ug/mL 15-40 [facility] Comment on above: Detection Limit = 3 RBC Auto (Bld) [#/Vol]Ordere d By: Vini Feliciano on 06-18-2024 RBC (Bld) [#/Vol] 4.81 10*6/uL 4.6-6.2 [facility] Serum creatinine measurement (mass/volume)Ordered By: Vini Feliciano on 06-18-2024 Creatinine [Mass/Vol] 0.91 mg/dL 0.70-1.20 [facility] Serum globulin measurementOr dered By: Vini Feliciano on 06-18-2024 Globulin (S) [Mass/Vol] 3.0 g/dL 2.2-4.2 [facility] Serum glucose measurement (m ass/volume)Ordered By: Vini Feliciano on 06-18-2024 Glucose [Mass/Vol] 119 mg/dL High 70-99 [facility] Serum or plasma alanine medrano otransferase (ALT) measurementOrdered By: Vini Feliciano on 06-18-2024 ALT [Catalytic activity/Vol] 31 U/L <47 [facility] Serum or plasma albumin jung urement (mass/volume)Ordered By: Vini Feliciano on 06-18-2024 Albumin [Mass/Vol] 4.0 g/dL 3.4-4.8 [facility] Serum or plasma albumin/glob ulin mass ratioOrdered By: Vini Feliciano on 06-18-2024 Albumin/Globulin [Mass ratio] 1.3 {ratio} 0.9-2.4 [facility] Serum or plasma alkaline ally sphatase measurementOrdered By: Vini Feliciano on 06-18-2024 ALP [Catalytic activity/Vol] 91 U/L 40-129 [facility] Serum or plasma calcium jung urement (mass/volume)Ordered By: Vini Feliciano on 06-18-2024 Calcium [Mass/Vol] 9.4 mg/dL 7.6-11.0 [facility] Serum or plasma urea nitroge n measurement (mass/volume)Ordered By: Vini Feliciano on 06-18-2024 Urea nitrogen [Mass/Vol] 16 mg/dL 4-19 [facility] Sodium levelOrdered By: Marilyn Feliciano on 06-18-2024 Sodium [Moles/Vol] 138 mmol/L 133-145 [facility] Total proteinOrdered By: Yahir Feliciano on 06-18-2024 Protein [Mass/Vol] 7.0 g/dL 5.9-8.4 [facility] Venous blood ammonia measure mentOrdered By: Vini Feliciano on 06-18-2024 Ammonia (P) [Moles/Vol] 16.1 umol/L 16-60 [facility] White blood cell (WBC) count Ordered By: Vini Feliciano on 06-18-2024 WBC (Bld) [#/Vol] 6.4 10*3/uL 4.4-11.0 [facility] HIP, UNI W/ Pelvis 2-3 Views on 05-29-2024 HIP, UNI W/ Pelvis 2-3 Views [facility] Imaging Services [address] [place] [id number] HIP, UNI W/ Pelvis 2-3 Views MR#: [id number] Acct: [id number] Name: NAYLA BENNETT Rep #: [id number] : 1955 M 69 From: Jd mar MD PCP: Dr. Eddi Lynn MD Status: [facility] Study: HIP, UNI W/ Pelvis 2-3 Views Date of Exam: 09/17 Exam# [id number] Ordering Dr: Eddi Lynn MD PROCEDURE: HIP, UNI W/ PELVIS 2-3 VIEWS REASON FOR EXAM: Pain following recent fall. TECHNIQUE: Three views were obtained. COMPARISON: None. FINDINGS: No fracture. No suspicious bone lesion. Normal alignment. Calcified phleboliths are seen in the pelvis. 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 RAD/HIP, UNI W/ Pelvis 2-3 Views IMPRESSION: Degenerative changes. Reading Location: [id number] CC: Dr. Eddi Lynn MD Run Lead: Signed Normal [facility] Neurology Visit Reporton Neurology Visit Report [facility] [address] [facility], [address] [place] [address] OFFICE VISIT Date of Service: 05/28/24 MR#: [id number] Acct: [id number] Name: NAYLA BENNETT Rep #: [id number] : 1955 Provider: Dr. Vini scott MD Age/Sex: 69/M Location: [facility]. Status: Signed [facility] Chief Complaint: Details: Interim History: Nayla returns for follow-up visit. He is accompanied by a caregiver from his custodial. He has a history of diabetes mellitus, hyperlipidemia, hypothyroidism, autism, schizophrenia, vitamin D deficiency, vitamin B12 deficiency, and epilepsy. Details regarding his history prior to 2014 are not available. His verbalization is very limited. He is able to read at a third grade level. He has a history of seizures. Details regarding the etiology of his seizures, if known, are unavailable. He has exhibited seizures characterized by staring and disconnection with his surroundings without clonic or tonic activity. These episodes last several seconds each. He does not have associated tongue biting or urinary incontinence. Over recent years, his seizures had generally occurred up to 1-2 times per month. His seizures have increased in frequency within recent months and he has had about 10 complex partial seizures within the past month. He is taking phenobarbital and levetiracetam and his last levels were in therapeutic ranges. He has tolerated these medications well. He has had mild hyponatremia in the past. He does not drink excessive amounts of water. He is not on a diuretic. His vitamin B12 level was normal, and his vitamin D level was normal (06/2021). There is no reported history of head injury. He takes risperidone and his mood has been stable. He had a fall in April 2024. Physical Exam: Neuro: The patient is awake; he has bradyphrenia and exhibits a flat affect; gait is mildly slow; no tremor is noted at rest; no rigidity is noted in the wrists Heart: Regular rate and rhythm Neck: No bruits Supplemental Info Levetiracetam lvl. (09/17/14): Levetiracetam 28.1 CBCD CMP, TSH, Vitamin D (10/02/19): AST 13, Sodium 133, TSH 1.78, Vit D 34.5 Brain MRI 12/24/19 Impression There are minor mucosal reactive changes in the ethmoid and sphenoid sinuses and maxillary mucosal retention cysts. This is minimal reactive state without true acute or chronic disease. This does not require further imaging or clinical attention. EEG 01/09/20 This is a normal awake and drowsy EEG study with 1- Hz posterior background rhythm. There were no epileptiform discharges,seizure patters, or lateralizing signs. If over seizure activity is observed clinically or mental satues change is not accounted for by non-seizure etiologies then 24-hr continuous video-EEG monitoring is recommended. Levetiracetam level (02/11/2020): 10.1 (in therapeutic range). Phenobarbital level (02/11/2020): 16.8. CBCD, CMP, TSH, PSA, Vitamin D (04/07/20): WBC 11.3, AST 14, NA 134, Vitamin D 20.4 (Insufficiency) B12 (05/18/20): 466 Levetiracetam level (09/16/2020): 13.6 (within therapeutic range of 10???40) Phenobarbital level (09/16/2020): 17.4 (within therapeutic range of 10???40) Labs (10/13/2020): TSH: Normal Vitamin D: 82.4 (normal) CMP: Sodium 134 (L) CBCD: Normal Labs (07/13/2021): BMP: Sodium 133 (L), glucose 126 (H) Ammonia: Normal Vitamin B12: Normal Vitamin D: Normal Levetiracetam: 8.8 (below therapeutic range of 10???40) Phenobarbital: 16.2 (within therapeutic range) Ammonia (09/28/2021): Normal. BMP (09/28/2021): Sodium 134, glucose 131 Levetiracetam level (09/28/2021): 15.9 (in therapeutic range) CBC, vitamin D, TSH (10/12/2021): Sodium 134 CBC, CMP, ammonia, vitamin D, TSH (05/25/2022): Sodium 130 (low), glucose 139 (high) Levetiracetam level (05/25/2022): 17.9 (in therapeutic range). Phenobarbital level (05/25/2022): 21.1 (in therapeutic range). Vitamin D, lipid profile (10/25/2022): triglycerides 130 (normal), cholesterol 102 (normal), LDL 40 (normal), VLDL 26 (normal), HDL 36 (low) Hemoglobin A1c (10/25/2022): 6 (high) BMP (11/04/2022): Sodium 128 (low), glucose 152 (high) CBC, CMP, TSH (11/05/2022): Sodium 133 (low), glucose 124 (high), calcium 8.4 (low), AST 63 (high) Levetiracetam level (12/19/2022): 33.4 (in therapeutic range). Phenobarbital level (12/19/2022): 18.2 (in therapeutic range) CBC CMP, hemoglobin A1c, TSH, vitamin D (05/01/2023): Sodium 129 (low), hemoglobin A1c 6 (high), triglycerides 120 (normal), cholesterol 107 (normal), LDL 45 (normal), HDL 38 (low), VLDL 24 (normal) CBC, ammonia, CMP (06/12/2023): Glucose 128 (high) Levetiracetam level (06/12/2023): 18.9 (in therapeutic range) Phenobarbital level (06/12/2023): 17 (in therapeutic range) CBC, ammonia, CMP, vitamin D, thiamine, TSH, free T4, B12 (12/05/2023): Sodium 132 (low), glucose 133 (high), ammonia <10 (low) Levetiracet (more content not included)... Normal [facility] Emergency Department Summary on 05-22-2024 Emergency Department Summary [facility] Medical Records Department [address] [place] [address] Emergency Department Summary 05/22/24 MR#: [id number] Acct: [id number] Name: NAYLA BENNETT Rep #: [id number] : 1955 69 From: Chet Grover MD PCP: Dr. Dean Felipe MD Status:PRE ER Location: ED HPI History of Present Illness Chief Complaint: Fall Detail of Chief Complaint: Concern for injury to left hip lower back status post fall Informant: other (Attending from custodial) Limited: other (Nonverbal) Onset/Context/Timin g Onset: Today Mechanism/Context: Blunt Injury and Fall Location of pain/injuries: Left hip Quality of Pain: - (Unable to determine) Location: Per attendee points to the left iliac buttocks low back region Current Severity: Unable to determine Maximum Severity: Unable to determine Worsened by: Remember to determine Relieved by: Unable to determine Associated Symptoms Associated Symptoms: Negative for Inability to ambulate Narrative Narrative: Patient is a 69-year-old male who is nonverbal with cognitive impairment who was at an outing. He fell. He reportedly had pain in the left hip low back area. No other history is available Prior similar symptoms: [facility] Medical History Developmental non-verbal disorder Vitamin B12 deficiency Epilepsy, unspecified, not intractable, without status epilepticus Schizophrenia Seizure disorder Hyperlipidemia HTN (hypertension) Diabetes mellitus, type II Home Medications ???Medication ???Instructions ???Recorded ???Last Taken ???Type loratadine 10 mg tablet 10 mg PO DAILY PRN allergies 07/16 Unknown History omega 9-axv-iyt-fish oil 300 1 ea PO BID 07/16/16 Unknown Histo ry mg-1,000 mg capsule risperidone 3 mg tablet 3 mg PO QHS 07/16/16 Unknown Histo ry atorvastatin 40 mg tablet 40 mg PO QHS 11/27/19 Unknown Hist ory metformin 1,000 mg tablet 1,000 mg PO BID 11/27/19 Unknown H istory chlorhexidine gluconate 0.12 % 15 ml buccal DAILY 12/02/19 Unknow n History mouthwash fluticasone propionate 50 1 spray intranasal DAILY 12/02/19 Unknown History mcg/actuation nasal spray,suspension multivitamin 1 tab PO DAILY 12/02/19 Unknown Hi story polyethylene glycol 3350 17 gram 17 g PO BID 12/02/19 Unknown Histo ry oral powder packet tamsulosin 0.4 mg capsule 0.4 mg PO DAILY 12/02/19 Unknown H istory cholecalciferol (vitamin D3) 1,250 1,250 mcg PO QMONTH #1 cap 11/27 Unknown Rx mcg (50,000 unit) capsule levetiracetam 1,000 mg tablet 1,000 mg PO BID #60 tabs 11/28/23 Unknown Rx levetiracetam 250 mg tablet 250 mg PO BID #60 tabs 11/28/23 Un known Rx levothyroxine 50 mcg tablet 50 mcg PO QDAY 11/28/23 Unknown Hi story phenobarbital 60 mg tablet 120 mg (2 x 60 mg) PO QHS #56 tabs 11/28/23 Unknown Rx mecobalamin (vitamin B12) 1,000 1,000 mcg PO DAILY #30 tabs Unknown Rx mcg chewable tablet (B12 Active) Allergy/AdvReac Type Severity Reaction Status Date / Time No Known Allergies Allergy Verified 05/22/24 19:21 Surgical History No history of previous surgery Social History housing: other details: [facility] Smoking Status: Never smoker Electronic Cigarette Use: not used second hand exposure: No alcohol intake: never substance use type: does not use seatbelt use: always ROS ROS ED Review of Systems ROS Unobtainable: other Details: Nonverbal Constitutional Constitutional ED: Reports chills EXAM Physical Exam Const Vital Signs: 05/22/24 19:21 Temperature 97.2 F L Temperature Source Temporal Pulse Rate 90 Respiratory Rate 20 H Blood Pressure 205/82 H Blood Pressure Mean 123 Pulse Ox 95 Oxygen Delivery Method Room Air Positive well nourished and well developed Constitutional Narrative: BMI greater than 30 General Appearance ED: well developed and NAD HEENT atraumatic; Negative for tenderness Nose: Negative for septum abnormal Eyes PERRL and EOMs intact bilaterally Neck full ROM General: Negative for tenderness Resp normal respiratory effort Cardio regular rhythm and S1 normal heart sound GI normal to inspection, nondistended, normoactive bowel sounds, non-tender, non-distended and no masses Back/Spine normal to inspection and no thoracic nor lumbar tenderness Extremity normal to inspection and full ROM Neuro CN's II-XII intact bilaterally, moves all extremities, no focal motor deficits and no sensory deficits noted Neuro Narrative: Patient's gait was observed. He has no limp. He is able to bend forward and backwards. Able to rotate to the right and left. There is no grimacing or indica (more content not included)... Normal [facility] PROLACTIN 4465on 01-09-2024 PROLACTIN 26.2 ng/mL High 3.6-25.2 [facility] Comment on above: Result Comment: Perf ormed at: - [facility] [address] [id number] [employer] Renter: Pacheco Campos PhD, Phone: [phone] Performed By: #### L 466.5302, K5672.6826 ####[facility] [address] [place], [address] Sodium Levelon 01-08-2024 Sodium [Moles/Vol] 138 mmol/L Normal 136-145 [facility] Comment on above: Performed By: #### L 294.5300, M5685.8190 ####[facility] [address] [place], [address] KEPPRA (LEVETIRACETAM)on KEPPRA 21.2 ug/mL Normal 10.0-40.0 [facility] Comment on above: Order Comment: DR.BA NGUYEN ORDERED CMP, LIPID, PROL, CBCD,AMM, KEPP,PHENO,VITD1,B12DR SUZE ORDERED TSH, VITD, FT4, LIPID, CMP, PSAD, CBCDDR Result Comment: Perf ormed at: - [facility] [address] [id number] [employer]: Pacheco Campos PhD, Phone: [phone] Performed at: - [facility] [address] [id number] [employer]: Vickey Romeo MD, Phone: [phone] Performed By: #### L 3300.0960, L3700.3000, L100.0500, L3310.0000, L503.5510, L500.4050, L503.0105 ####[facility] [address] [place], [place], [id number] L3700.3000on 12-07-2023 PHENobarbital [Mass/Vol] 16 ug/mL Normal 15-40 [facility] Comment on above: Order Comment: DR.BA NGUYEN ORDERED CMP, LIPID, PROL, CBCD,AMM, KEPP,PHENO,VITD1,B12DR SUZE ORDERED TSH, VITD, FT4, LIPID, CMP, PSAD, CBCDDR Result Comment: Dete ction Limit = 3 Performed By: #### L 3300.0960, L3700.3000, L100.0500, L3310.0000, L503.5510, L500.4050, L503.0105 ####[facility] [address] [place], [place], [id number] Vitamin D 1,25-Dihydroxyon 0 12-07-2023 VIT D 1,25 DIHY 43.6 pg/mL Normal 24.8-81.5 [facility] Comment on above: Order Comment: DR.BA NGUYEN ORDERED CMP, LIPID, PROL, CBCD,AMM, KEPP,PHENO,VITD1,B12DR SUZE ORDERED TSH, VITD, FT4, LIPID, CMP, PSAD, CBCDDR Result Comment: Perf ormed at: - [facility] [id number] [employer]: Vickey Romeo MD, Phone: [phone] Performed By: #### L 3300.0960, L3700.3000, L100.0500, L3310.0000, L503.5510, L500.4050, L503.0105 ####[facility] [address] [place], [place], [id number] PROLACTIN 4465on 12-06-2023 PROLACTIN 34.3 ng/mL High 3.6-25.2 [facility] Comment on above: Order Comment: DR.BA NGUYEN ORDERED CMP, LIPID, PROL, CBCD,AMM, KEPP,PHENO,VITD1,B12DR SUZE ORDERED TSH, VITD, FT4, LIPID, CMP, PSAD, CBCDDR Result Comment: Perf ormed at: - [facility] [id number] [employer]: Pacheco Campos PhD, Phone: [phone] Performed By: #### L 9450.5403 ####[facility] [address] [place], [place], [id number] Ammoniaon 12-05-2023 Ammonia (P) [Mass/Vol] ug/dL Low [facility] Comment on above: Order Comment: DR.BA NGUYEN ORDERED CMP, LIPID, PROL, CBCD,AMM, KEPP,PHENO,VITD1,B12DR SUZE ORDERED TSH, VITD, FT4, LIPID, CMP, PSAD, CBCDDR Performed By: #### L 3300.0960, L3700.3000, L100.0500, L3310.0000, L503.5510, L500.4050, L503.0105 ####[facility] [address] [place], [place], [phone] CBC W/Diff, Automatedon 11-24 Absolute Lymph 2.32 X10 3/uL Normal 0.83-4.51 [facility] Comment on above: Order Comment: DR.BA NGUYEN ORDERED CMP, LIPID, PROL, CBCD,AMM, KEPP,PHENO,VITD1,B12DR SUZE ORDERED TSH, VITD, FT4, LIPID, CMP, PSAD, CBCDDROrder Date: 10/25/23Order Info: 4- - CBCD Performed By: #### L 100.0100, L501.9940, L500.4100, L501.9520, L500.4050, L506.0400, L506.1000 ####[facility] [address] [place], [place], [phone](646) Absolute Neut 5.7 X10 3/uL Normal 2.0-7.7 [facility] Comment on above: Order Comment: DR.BA NGUYEN ORDERED CMP, LIPID, PROL, CBCD,AMM, KEPP,PHENO,VITD1,B12DR SUZE ORDERED TSH, VITD, FT4, LIPID, CMP, PSAD, CBCDDROrder Date: 10/25/23Order Info: 183- - CBCD Performed By: #### L 100.0100, L501.9940, L500.4100, L501.9520, L500.4050, L506.0400, L506.1000 ####[facility] [address] [place], [place], [phone](045) Basophils/100 WBC (Bld) 0.5 % Normal 0-1 [facility] Comment on above: Order Comment: DR.BA NGUYEN ORDERED CMP, LIPID, PROL, CBCD,AMM, KEPP,PHENO,VITD1,B12DR SUZE ORDERED TSH, VITD, FT4, LIPID, CMP, PSAD, CBCDDROrder Date: 10/25/23Order Info: 018- - CBCD Performed By: #### L 100.0100, L501.9940, L500.4100, L501.9520, L500.4050, L506.0400, L506.1000 ####[facility] [address] [facility]. [place], [place], [phone]) Eosinophils/100 WBC (Bld) 3.6 % Normal 0-5 [facility] Comment on above: Order Comment: DR.BA NGUYEN ORDERED CMP, LIPID, PROL, CBCD,AMM, KEPP,PHENO,VITD1,B12DR SUZE ORDERED TSH, VITD, FT4, LIPID, CMP, PSAD, CBCDDROrder Date: 10/25/23Order Info: 0184- - CBCD Performed By: #### L 100.0100, L501.9940, L500.4100, L501.9520, L500.4050, L506.0400, L506.1000 ####[facility] [address] [facility]. [place], [place], [phone]) Erythrocyte distribution width (RBC) [Ratio] 12.0 % Normal 11.6-14.6 [facility] Comment on above: Order Comment: DR.BA NGUYEN ORDERED CMP, LIPID, PROL, CBCD,AMM, KEPP,PHENO,VITD1,B12DR SUZE ORDERED TSH, VITD, FT4, LIPID, CMP, PSAD, CBCDDROrder Date: 10/25/23Order Info: 183- - CBCD Performed By: #### L 100.0100, L501.9940, L500.4100, L501.9520, L500.4050, L506.0400, L506.1000 ####[facility] [address] [facility] [place], [place], [phone](954) Hematocrit (Bld) [Volume fraction] 43.5 % Normal 40-54 [facility] Comment on above: Order Comment: DR.BA NGUYEN ORDERED CMP, LIPID, PROL, CBCD,AMM, KEPP,PHENO,VITD1,B12DR SUZE ORDERED TSH, VITD, FT4, LIPID, CMP, PSAD, CBCDDROrder Date: 10/25/23Order Info: 0184-1 - CBCD Performed By: #### L 100.0100, L501.9940, L500.4100, L501.9520, L500.4050, L506.0400, L506.1000 ####[facility] [address] [place], [address] Hemoglobin (Bld) [Mass/Vol] 14.6 g/dL Normal 13.0-16.5 [facility] Comment on above: Order Comment: DR.BA NGUYEN ORDERED CMP, LIPID, PROL, CBCD,AMM, KEPP,PHENO,VITD1,B12DR SUZE ORDERED TSH, VITD, FT4, LIPID, CMP, PSAD, CBCDDROrder Date: 10/25/23Order Info: 0184-1 - CBCD Performed By: #### L 100.0100, L501.9940, L500.4100, L501.9520, L500.4050, L506.0400, L506.1000 ####[facility] [address] [place], [address] IG% 0.400 Normal 0.0-0.9 [facility] Comment on above: Order Comment: DR.BA NGUYEN ORDERED CMP, LIPID, PROL, CBCD,AMM, KEPP,PHENO,VITD1,B12DR SUZE ORDERED TSH, VITD, FT4, LIPID, CMP, PSAD, CBCDDROrder Date: 10/25/23Order Info: 0184-1 - CBCD Result Comment: IG% - Immature Granulocytes (promyelocytes, myelocytes and metamyelocytes) > 1% indicates that a LEFT SHIFT is Present. Performed By: #### L 100.0100, L501.9940, L500.4100, L501.9520, L500.4050, L506.0400, L506.1000 ####[facility] [address] [place], [address] Lymphocytes/100 WBC (Bld) 24.9 % Normal 19-41 [facility] Comment on above: Order Comment: DR.BA NGUYEN ORDERED CMP, LIPID, PROL, CBCD,AMM, KEPP,PHENO,VITD1,B12DR SUZE ORDERED TSH, VITD, FT4, LIPID, CMP, PSAD, CBCDDROrder Date: 10/25/23Order Info: 183- - CBCD Performed By: #### L 100.0100, L501.9940, L500.4100, L501.9520, L500.4050, L506.0400, L506.1000 ####[facility] [address] [place], [address] MCH (RBC) [Entitic mass] 29.5 pg Normal 27.0-32.0 [facility] Comment on above: Order Comment: DR.BA NGUYEN ORDERED CMP, LIPID, PROL, CBCD,AMM, KEPP,PHENO,VITD1,B12DR SUZE ORDERED TSH, VITD, FT4, LIPID, CMP, PSAD, CBCDDROrder Date: 10/25/23Order Info: 183- - CBCD Performed By: #### L 100.0100, L501.9940, L500.4100, L501.9520, L500.4050, L506.0400, L506.1000 ####[facility] [address] [place], [address] MCHC (RBC) [Mass/Vol] 33.6 g/dL Normal 32-36 [facility] Comment on above: Order Comment: DR.BA NGUYEN ORDERED CMP, LIPID, PROL, CBCD,AMM, KEPP,PHENO,VITD1,B12DR [facility] ORDERED TSH, VITD, FT4, LIPID, CMP, PSAD, CBCDDROrder Date: 10/25/23Order Info: 183- - CBCD Performed By: #### L 100.0100, L501.9940, L500.4100, L501.9520, L500.4050, L506.0400, L506.1000 ####[facility] [address] [place], [address] MCV (RBC) [Entitic vol] 87.9 fL Normal 80-94 [facility] Comment on above: Order Comment: DR.BA NGUYEN ORDERED CMP, LIPID, PROL, CBCD,AMM, KEPP,PHENO,VITD1,B12DR SUZE ORDERED TSH, VITD, FT4, LIPID, CMP, PSAD, CBCDDROrder Date: 10/25/23Order Info: 0184- - CBCD Performed By: #### L 100.0100, L501.9940, L500.4100, L501.9520, L500.4050, L506.0400, L506.1000 ####[facility] [address] [place], [address] Monocytes/100 WBC (Bld) 9.0 % Normal 0-10 [facility] Comment on above: Order Comment: DR.BA NGUYEN ORDERED CMP, LIPID, PROL, CBCD,AMM, KEPP,PHENO,VITD1,B12DR SUZE ORDERED TSH, VITD, FT4, LIPID, CMP, PSAD, CBCDDROrder Date: 10/25/23Order Info: 183- - CBCD Performed By: #### L 100.0100, L501.9940, L500.4100, L501.9520, L500.4050, L506.0400, L506.1000 ####[facility] [address] [place], [address] Neutrophils/100 WBC (Bld) 61.6 % Normal 47-70 [facility] Comment on above: Order Comment: DR.BA NGUYEN ORDERED CMP, LIPID, PROL, CBCD,AMM, KEPP,PHENO,VITD1,B12DR SUZE ORDERED TSH, VITD, FT4, LIPID, CMP, PSAD, CBCDDROrder Date: 10/25/23Order Info: 018-1 - CBCD Performed By: #### L 100.0100, L501.9940, L500.4100, L501.9520, L500.4050, L506.0400, L506.1000 ####[facility] [address] [place], [address] Nucleated RBC (Bld) [#/Vol] 0 10*3/uL Normal 0-5 [facility] Comment on above: Order Comment: DR.BA NGUYEN ORDERED CMP, LIPID, PROL, CBCD,AMM, KEPP,PHENO,VITD1,B12DR SUZE ORDERED TSH, VITD, FT4, LIPID, CMP, PSAD, CBCDDROrder Date: 10/25/23Order Info: 183- - CBCD Performed By: #### L 100.0100, L501.9940, L500.4100, L501.9520, L500.4050, L506.0400, L506.1000 ####[facility] [address] [place], [address] Platelet mean volume (Bld) [Entitic vol] 9.1 fL Normal 6.2-12.0 [facility] Comment on above: Order Comment: DR.BA NGUYEN ORDERED CMP, LIPID, PROL, CBCD,AMM, KEPP,PHENO,VITD1,B12DR SUZE ORDERED TSH, VITD, FT4, LIPID, CMP, PSAD, CBCDDROrder Date: 10/25/23Order Info: 183- - CBCD Performed By: #### L 100.0100, L501.9940, L500.4100, L501.9520, L500.4050, L506.0400, L506.1000 ####[facility] [address] [facility] [place], [address] Platelets (Bld) [#/Vol] 286 10*3/uL Normal 150-450 [facility] Comment on above: Order Comment: DR.BA NGUYEN ORDERED CMP, LIPID, PROL, CBCD,AMM, KEPP,PHENO,VITD1,B12DR SUZE ORDERED TSH, VITD, FT4, LIPID, CMP, PSAD, CBCDDROrder Date: 10/25/23Order Info: 183- - CBCD Performed By: #### L 100.0100, L501.9940, L500.4100, L501.9520, L500.4050, L506.0400, L506.1000 ####[facility] [address] [facility]. [place], [place], [phone] RBC (Bld) [#/Vol] 4.95 10*6/uL Normal 4.6-6.2 [facility] Comment on above: Order Comment: DR.BA NGUYEN ORDERED CMP, LIPID, PROL, CBCD,AMM, KEPP,PHENO,VITD1,B12DR SUZE ORDERED TSH, VITD, FT4, LIPID, CMP, PSAD, CBCDDROrder Date: 10/25/23Order Info: 0184-1 - CBCD Performed By: #### L 100.0100, L501.9940, L500.4100, L501.9520, L500.4050, L506.0400, L506.1000 ####[facility] [address] [place], [place], [phone] RDW SD 38.6 fl Normal 35.1-43.9 [facility] Comment on above: Order Comment: DR.BA NGUYEN ORDERED CMP, LIPID, PROL, CBCD,AMM, KEPP,PHENO,VITD1,B12DR SUZE ORDERED TSH, VITD, FT4, LIPID, CMP, PSAD, CBCDDROrder Date: 10/25/23Order Info: 018- - CBCD Performed By: #### L 100.0100, L501.9940, L500.4100, L501.9520, L500.4050, L506.0400, L506.1000 ####[facility] [address] [facility]. [place], [place], [phone] WBC (Bld) [#/Vol] 9.3 10*3/uL Normal 4.4-11.0 [facility] Comment on above: Order Comment: DR.BA NGUYEN ORDERED CMP, LIPID, PROL, CBCD,AMM, KEPP,PHENO,VITD1,B12DR SUZE ORDERED TSH, VITD, FT4, LIPID, CMP, PSAD, CBCDDROrder Date: 10/25/23Order Info: 0184-1 - CBCD Performed By: #### L 100.0100, L501.9940, L500.4100, L501.9520, L500.4050, L506.0400, L506.1000 ####[facility] [address] [place], [address] CBC-Complete Blood Cnt No Di ffon 12-05-2023 HCT Normal 40-54 [facility] Comment on above: Result Comment: DUPL ICATE Performed By: #### L 3300.0960, L3700.3000, L100.0500, L3310.0000, L503.5510, L500.4050, L503.0105 ####[facility] [address] [place], [address] HGB Normal 13.0-16.5 [facility] Comment on above: Result Comment: DUPL ICATE Performed By: #### L 3300.0960, L3700.3000, L100.0500, L3310.0000, L503.5510, L500.4050, L503.0105 ####[facility] [address] [place], [address] MCH Normal 27.0-32.0 [facility] Comment on above: Result Comment: DUPL ICATE Performed By: #### L 3300.0960, L3700.3000, L100.0500, L3310.0000, L503.5510, L500.4050, L503.0105 ####[facility] [address] [place], [address] MCHC Normal 32-36 [facility] Comment on above: Result Comment: DUPL ICATE Performed By: #### L 3300.0960, L3700.3000, L100.0500, L3310.0000, L503.5510, L500.4050, L503.0105 ####[facility] [address] [place], [address] MCV Normal 80-94 [facility] Comment on above: Result Comment: DUPL ICATE Performed By: #### L 3300.0960, L3700.3000, L100.0500, L3310.0000, L503.5510, L500.4050, L503.0105 ####[facility] [address] [place], [address] PLT Normal 150-450 [facility] Comment on above: Result Comment: DUPL ICATE Performed By: #### L 3300.0960, L3700.3000, L100.0500, L3310.0000, L503.5510, L500.4050, L503.0105 ####[facility] [address] [place], [address] RBC Normal 4.6-6.2 [facility] Comment on above: Result Comment: DUPL ICATE Performed By: #### L 3300.0960, L3700.3000, L100.0500, L3310.0000, L503.5510, L500.4050, L503.0105 ####[facility] [address] [place], [address] RDW CV Normal 11.6-14.6 [facility] Comment on above: Result Comment: DUPL ICATE Performed By: #### L 3300.0960, L3700.3000, L100.0500, L3310.0000, L503.5510, L500.4050, L503.0105 ####[facility] [address] [place], [address] RDW SD Normal 35.1-43.9 [facility] Comment on above: Result Comment: DUPL ICATE Performed By: #### L 3300.0960, L3700.3000, L100.0500, L3310.0000, L503.5510, L500.4050, L503.0105 ####[facility] [address] [place], [address] WBC Normal 4.4-11.0 [facility] Comment on above: Result Comment: DUPL ICATE Performed By: #### L 3300.0960, L3700.3000, L100.0500, L3310.0000, L503.5510, L500.4050, L503.0105 ####[facility] [address] [place], [address] Comprehensive Metabolic Prof ilon 12-05-2023 Albumin [Mass/Vol] 3.5 g/dL Normal 3.2-5.0 [facility] Comment on above: Order Comment: DR.BA NGUYEN ORDERED CMP, LIPID, PROL, CBCD,AMM, KEPP,PHENO,VITD1,B12DR SUZE ORDERED TSH, VITD, FT4, LIPID, CMP, PSAD, CBCDDROrder Date: 10/25/23Order Info: 86-1 - CMPOrder Info: [id number] - LIPIDOrder Info: 3 - TSHOrder Info: 83-1 - PSADOrder Info: 3027 - T4F Performed By: #### L 100.0100, L501.9940, L500.4100, L501.9520, L500.4050, L506.0400, L506.1000 ####[facility] [address] [place], [address] Albumin/Globulin [Mass ratio] 1.0 {ratio} Normal 0.9-2.4 [facility] Comment on above: Order Comment: DR.BA NGUYEN ORDERED CMP, LIPID, PROL, CBCD,AMM, KEPP,PHENO,VITD1,B12DR SUZE ORDERED TSH, VITD, FT4, LIPID, CMP, PSAD, CBCDDROrder Date: 10/25/23Order Info: 0786-1 - CMPOrder Info: [id number] - LIPIDOrder Info: [id number] - TSHOrder Info: 0783-1 - PSADOrder Info: 3024-7 - T4F Performed By: #### L 100.0100, L501.9940, L500.4100, L501.9520, L500.4050, L506.0400, L506.1000 ####[facility] [address] [place], [address] ALK P 90 U/L Normal 45-117 [facility] Comment on above: Order Comment: DR.BA NGUYEN ORDERED CMP, LIPID, PROL, CBCD,AMM, KEPP,PHENO,VITD1,B12DR SUZE ORDERED TSH, VITD, FT4, LIPID, CMP, PSAD, CBCDDROrder Date: 10/25/23Order Info: [id number] - CMPOrder Info: - LIPIDOrder Info: [id number] - TSHOrder Info: 782-03 - PSADOrder Info: 3023-09 - T4F Performed By: #### L 100.0100, L501.9940, L500.4100, L501.9520, L500.4050, L506.0400, L506.1000 ####[facility] [address] [place], [address] ALT [Catalytic activity/Vol] 26 U/L Normal 16-61 [facility] Comment on above: Order Comment: DR.BA NGUYEN ORDERED CMP, LIPID, PROL, CBCD,AMM, KEPP,PHENO,VITD1,B12DR SUZE ORDERED TSH, VITD, FT4, LIPID, CMP, PSAD, CBCDDROrder Date: 10/25/23Order Info: 785-03 - CMPOrder Info: - LIPIDOrder Info: [id number] - TSHOrder Info: 782-03 - PSADOrder Info: 3023-09 - T4F Performed By: #### L 100.0100, L501.9940, L500.4100, L501.9520, L500.4050, L506.0400, L506.1000 ####[facility] [address] [place], [address] AST [Catalytic activity/Vol] 14 U/L Low 15-37 [facility] Comment on above: Order Comment: DR.BA NGUYEN ORDERED CMP, LIPID, PROL, CBCD,AMM, KEPP,PHENO,VITD1,B12DR SUZE ORDERED TSH, VITD, FT4, LIPID, CMP, PSAD, CBCDDROrder Date: 10/25/23Order Info: [id number] - CMPOrder Info: [id number] - LIPIDOrder Info: 6-3 - TSHOrder Info: 1 - PSADOrder Info: 7 - T4F Performed By: #### L 100.0100, L501.9940, L500.4100, L501.9520, L500.4050, L506.0400, L506.1000 ####[facility] [address] [place], [place], [phone] Bilirubin [Mass/Vol] 0.30 mg/dL Normal 0.20-1.00 [facility] Comment on above: Order Comment: DR.BA NGUYEN ORDERED CMP, LIPID, PROL, CBCD,AMM, KEPP,PHENO,VITD1,B12DR SUZE ORDERED TSH, VITD, FT4, LIPID, CMP, PSAD, CBCDDROrder Date: 10/25/23Order Info: 785- - CMPOrder Info: - LIPIDOrder Info: [id number] - TSHOrder Info: 782-03 - PSADOrder Info: 3023-09 - T4F Result Comment: For patients on eltrombopag therapy, use of Dimension [place] TBIL is not recommended. Performed By: #### L 100.0100, L501.9940, L500.4100, L501.9520, L500.4050, L506.0400, L506.1000 ####[facility] [address] [place], [place], [phone] BUN/CRE 17.5 RATIO Normal 10-20 [facility] Comment on above: Order Comment: DR.BA NGUYEN ORDERED CMP, LIPID, PROL, CBCD,AMM, KEPP,PHENO,VITD1,B12DR SUZE ORDERED TSH, VITD, FT4, LIPID, CMP, PSAD, CBCDDROrder Date: 10/25/23Order Info: 86-1 - CMPOrder Info: [id number] - LIPIDOrder Info: [id number] - TSHOrder Info: 782-03 - PSADOrder Info: 3023-09 - T4F Performed By: #### L 100.0100, L501.9940, L500.4100, L501.9520, L500.4050, L506.0400, L506.1000 ####[facility] [address] [place], [place], [address]([phone] CA,Total 9.2 mg/dL Normal 8.5-10.1 [facility] Comment on above: Order Comment: DR.BA NGUYEN ORDERED CMP, LIPID, PROL, CBCD,AMM, KEPP,PHENO,VITD1,B12DR SUZE ORDERED TSH, VITD, FT4, LIPID, CMP, PSAD, CBCDDROrder Date: 10/25/23Order Info: [id number] - CMPOrder Info: - LIPIDOrder Info: [id number] - TSHOrder Info: 782-03 - PSADOrder Info: 3023-09 - T4F Performed By: #### L 100.0100, L501.9940, L500.4100, L501.9520, L500.4050, L506.0400, L506.1000 ####[facility] [address] [place], [place], [phone] Chloride [Moles/Vol] 100 mmol/L Normal 98-107 [facility] Comment on above: Order Comment: DR.BA NGUYEN ORDERED CMP, LIPID, PROL, CBCD,AMM, KEPP,PHENO,VITD1,B12DR SUZE ORDERED TSH, VITD, FT4, LIPID, CMP, PSAD, CBCDDROrder Date: 10/25/23Order Info: 86- - CMPOrder Info: - LIPIDOrder Info: [id number] - TSHOrder Info: [id number] - PSADOrder Info: 3023-09 - T4F Performed By: #### L 100.0100, L501.9940, L500.4100, L501.9520, L500.4050, L506.0400, L506.1000 ####[facility] [address] [place], [place], [phone] CO2 [Moles/Vol] 27.0 mmol/L Normal 21.0-32.0 [facility] Comment on above: Order Comment: DR.BA NGUYEN ORDERED CMP, LIPID, PROL, CBCD,AMM, KEPP,PHENO,VITD1,B12DR SUZE ORDERED TSH, VITD, FT4, LIPID, CMP, PSAD, CBCDDROrder Date: 10/25/23Order Info: [id number] - CMPOrder Info: [id number] - LIPIDOrder Info: [id number] - TSHOrder Info: 83- - PSADOrder Info: 3027 - T4F Performed By: #### L 100.0100, L501.9940, L500.4100, L501.9520, L500.4050, L506.0400, L506.1000 ####[facility] [address] [place], [address] Creatinine [Mass/Vol] 1.03 mg/dL Normal 0.70-1.30 [facility] Comment on above: Order Comment: DR.BA NGYUEN ORDERED CMP, LIPID, PROL, CBCD,AMM, KEPP,PHENO,VITD1,B12DR SUZE ORDERED TSH, VITD, FT4, LIPID, CMP, PSAD, CBCDDROrder Date: 10/25/23Order Info: 86-1 - CMPOrder Info: [id number] - LIPIDOrder Info: [id number] - TSHOrder Info: 83-1 - PSADOrder Info: 302-7 - T4F Result Comment: The validity of the calculated GFR GFRAA in patients over 70 years has not been determined. Clinical correlation is essential. Performed By: #### L 100.0100, L501.9940, L500.4100, L501.9520, L500.4050, L506.0400, L506.1000 ####[facility] [address] [place], [address] EST GFR - AA 92 mL/min Normal >60 [facility] Comment on above: Order Comment: DR.BA NGUYEN ORDERED CMP, LIPID, PROL, CBCD,AMM, KEPP,PHENO,VITD1,B12DR SUZE ORDERED TSH, VITD, FT4, LIPID, CMP, PSAD, CBCDDROrder Date: 10/25/23Order Info: 86-1 - CMPOrder Info: [id number] - LIPIDOrder Info: 3 - TSHOrder Info: [id number] - PSADOrder Info: 3024-7 - T4F Result Comment: Afri can [place] GFR Calc Performed By: #### L 100.0100, L501.9940, L500.4100, L501.9520, L500.4050, L506.0400, L506.1000 ####[facility] [address] [place], [place], [phone](661) GAP 5 Normal 5-15 [facility] Comment on above: Order Comment: DR.BA NGUYEN ORDERED CMP, LIPID, PROL, CBCD,AMM, KEPP,PHENO,VITD1,B12DR SUZE ORDERED TSH, VITD, FT4, LIPID, CMP, PSAD, CBCDDROrder Date: 10/25/23Order Info: 86-1 - CMPOrder Info: [id number] - LIPIDOrder Info: [id number] - TSHOrder Info: 782-03 - PSADOrder Info: 3027 - T4F Performed By: #### L 100.0100, L501.9940, L500.4100, L501.9520, L500.4050, L506.0400, L506.1000 ####[facility] [address] [place], [place], [phone](947) GFR/1.73 sq M.predicted among non-blacks MDRD (S/P/Bld) [Vol rate/Area] 76 mL/min/{1.73_m2} Normal >60 [facility] Comment on above: Order Comment: DR.BA NGUYEN ORDERED CMP, LIPID, PROL, CBCD,AMM, KEPP,PHENO,VITD1,B12DR SUZE ORDERED TSH, VITD, FT4, LIPID, CMP, PSAD, CBCDDROrder Date: 10/25/23Order Info: [id number] - CMPOrder Info: [id number] - LIPIDOrder Info: [id number] - TSHOrder Info: 782-03 - PSADOrder Info: 3023-09 - T4F Result Comment: Non- GFR Calc Performed By: #### L 100.0100, L501.9940, L500.4100, L501.9520, L500.4050, L506.0400, L506.1000 ####[facility] [address] [place], [place], [id number] Globulin (S) [Mass/Vol] 3.5 g/dL Normal 2.2-4.2 [facility] Comment on above: Order Comment: DR.BA NGUYEN ORDERED CMP, LIPID, PROL, CBCD,AMM, KEPP,PHENO,VITD1,B12DR SUZE ORDERED TSH, VITD, FT4, LIPID, CMP, PSAD, CBCDDROrder Date: 10/25/23Order Info: 86- - CMPOrder Info: - LIPIDOrder Info: [id number] - TSHOrder Info: [id number] - PSADOrder Info: [id number] - T4F Performed By: #### L 100.0100, L501.9940, L500.4100, L501.9520, L500.4050, L506.0400, L506.1000 ####[facility] [address] [place], [place], [id number] Glucose [Mass/Vol] 133 mg/dL High 74-106 [facility] Comment on above: Order Comment: DR.BA NGUYEN ORDERED CMP, LIPID, PROL, CBCD,AMM, KEPP,PHENO,VITD1,B12DR SUZE ORDERED TSH, VITD, FT4, LIPID, CMP, PSAD, CBCDDROrder Date: 10/25/23Order Info: [id number] - CMPOrder Info: [id number] - LIPIDOrder Info: [id number] - TSHOrder Info: [id number] - PSADOrder Info: [id number] - T4F Result Comment: Fast ing Glucose result greater than or equal to 126 mg/dL suggests DIABETES MELLITUS per A.D.A. criteria. Performed By: #### L 100.0100, L501.9940, L500.4100, L501.9520, L500.4050, L506.0400, L506.1000 ####[facility] [address] [place], [address] Potassium [Moles/Vol] 4.1 mmol/L Normal 3.5-5.1 [facility] Comment on above: Order Comment: DR.BA NGUYEN ORDERED CMP, LIPID, PROL, CBCD,AMM, KEPP,PHENO,VITD1,B12DR SUZE ORDERED TSH, VITD, FT4, LIPID, CMP, PSAD, CBCDDROrder Date: 10/25/23Order Info: [id number] - CMPOrder Info: - LIPIDOrder Info: [id number] - TSHOrder Info: [id number] - PSADOrder Info: [id number] - T4F Performed By: #### L 100.0100, L501.9940, L500.4100, L501.9520, L500.4050, L506.0400, L506.1000 ####[facility] [address] [place], [address] Sodium [Moles/Vol] 132 mmol/L Low 136-145 [facility] Comment on above: Order Comment: DR.BA NGUYEN ORDERED CMP, LIPID, PROL, CBCD,AMM, KEPP,PHENO,VITD1,B12DR SUZE ORDERED TSH, VITD, FT4, LIPID, CMP, PSAD, CBCDDROrder Date: 10/25/23Order Info: [id number] - CMPOrder Info: [id number] - LIPIDOrder Info: [id number] - TSHOrder Info: [id number] - PSADOrder Info: [id number] - T4F Performed By: #### L 100.0100, L501.9940, L500.4100, L501.9520, L500.4050, L506.0400, L506.1000 ####[facility] [address] [place], [address] T PROT 7.0 g/dL Normal 6.4-8.2 [facility] Comment on above: Order Comment: DR.BA NGUYEN ORDERED CMP, LIPID, PROL, CBCD,AMM, KEPP,PHENO,VITD1,B12DR SUZE ORDERED TSH, VITD, FT4, LIPID, CMP, PSAD, CBCDDROrder Date: 10/25/23Order Info: 86-1 - CMPOrder Info: [id number] - LIPIDOrder Info: [id number] - TSHOrder Info: [id number] - PSADOrder Info: [id number] - T4F Performed By: #### L 100.0100, L501.9940, L500.4100, L501.9520, L500.4050, L506.0400, L506.1000 ####[facility] [address] [place], [address] Urea nitrogen [Mass/Vol] 18 mg/dL Normal 7-18 [facility] Comment on above: Order Comment: DR.BA NGUYEN ORDERED CMP, LIPID, PROL, CBCD,AMM, KEPP,PHENO,VITD1,B12DR SUZE ORDERED TSH, VITD, FT4, LIPID, CMP, PSAD, CBCDDROrder Date: 10/25/23Order Info: 86-1 - CMPOrder Info: [id number] - LIPIDOrder Info: [id number] - TSHOrder Info: [id number] - PSADOrder Info: [id number] - T4F Performed By: #### L 100.0100, L501.9940, L500.4100, L501.9520, L500.4050, L506.0400, L506.1000 ####[facility] [address] [place], [address] ALB Normal 3.2-5.0 [facility] Comment on above: Result Comment: DUPL ICATE Performed By: #### L 3300.0960, L3700.3000, L100.0500, L3310.0000, L503.5510, L500.4050, L503.0105 ####[facility] [address] [place], [address] ALK P Normal 45-117 [facility] Comment on above: Result Comment: DUPL ICATE Performed By: #### L 3300.0960, L3700.3000, L100.0500, L3310.0000, L503.5510, L500.4050, L503.0105 ####[facility] [address] [place], [address] ALT Normal 16-61 [facility] Comment on above: Result Comment: DUPL ICATE Performed By: #### L 3300.0960, L3700.3000, L100.0500, L3310.0000, L503.5510, L500.4050, L503.0105 ####[facility] [address] [place], [address] AST Normal 15-37 [facility] Comment on above: Result Comment: DUPL ICATE Performed By: #### L 3300.0960, L3700.3000, L100.0500, L3310.0000, L503.5510, L500.4050, L503.0105 ####[facility] [address] [place], [address] BUN Normal 7-18 [facility] Comment on above: Result Comment: DUPL ICATE Performed By: #### L 3300.0960, L3700.3000, L100.0500, L3310.0000, L503.5510, L500.4050, L503.0105 ####[facility] [address] [place], [address] BUN/CRE Normal 10-20 [facility] Comment on above: Result Comment: DUPL ICATE Performed By: #### L 3300.0960, L3700.3000, L100.0500, L3310.0000, L503.5510, L500.4050, L503.0105 ####[facility] [address] [place], [address] CA,Total Normal 8.5-10.1 [facility] Comment on above: Result Comment: DUPL ICATE Performed By: #### L 3300.0960, L3700.3000, L100.0500, L3310.0000, L503.5510, L500.4050, L503.0105 ####[facility] [address] [place], [address] CL Normal 98-107 [facility] Comment on above: Result Comment: DUPL ICATE Performed By: #### L 3300.0960, L3700.3000, L100.0500, L3310.0000, L503.5510, L500.4050, L503.0105 ####[facility] [address] [place], [address] CO2 Normal 21.0-32.0 [facility] Comment on above: Result Comment: DUPL ICATE Performed By: #### L 3300.0960, L3700.3000, L100.0500, L3310.0000, L503.5510, L500.4050, L503.0105 ####[facility] [address] [place], [address] CREAT,SERUM Normal 0.70-1.30 [facility] Comment on above: Result Comment: DUPL ICATE Performed By: #### L 3300.0960, L3700.3000, L100.0500, L3310.0000, L503.5510, L500.4050, L503.0105 ####[facility] [address] [place], [address] EST GFR Normal >60 [facility] Comment on above: Result Comment: DUPL ICATE Performed By: #### L 3300.0960, L3700.3000, L100.0500, L3310.0000, L503.5510, L500.4050, L503.0105 ####[facility] [address] [place], [address] EST GFR - AA Normal >60 [facility] Comment on above: Result Comment: DUPL ICATE Performed By: #### L 3300.0960, L3700.3000, L100.0500, L3310.0000, L503.5510, L500.4050, L503.0105 ####[facility] [address] [place], [address] GAP Normal 5-15 [facility] Comment on above: Result Comment: DUPL ICATE Performed By: #### L 3300.0960, L3700.3000, L100.0500, L3310.0000, L503.5510, L500.4050, L503.0105 ####[facility] [address] [place], [address] GLU Normal 74-106 [facility] Comment on above: Result Comment: DUPL ICATE Performed By: #### L 3300.0960, L3700.3000, L100.0500, L3310.0000, L503.5510, L500.4050, L503.0105 ####[facility] [address] [place], [address] Potassium Normal 3.5-5.1 [facility] Comment on above: Result Comment: DUPL ICATE Performed By: #### L 3300.0960, L3700.3000, L100.0500, L3310.0000, L503.5510, L500.4050, L503.0105 ####[facility] [address] [place], [address] T BILI Normal 0.20-1.00 [facility] Comment on above: Result Comment: DUPL ICATE Performed By: #### L 3300.0960, L3700.3000, L100.0500, L3310.0000, L503.5510, L500.4050, L503.0105 ####[facility] [address] [place], [address] T PROT Normal 6.4-8.2 [facility] Comment on above: Result Comment: DUPL ICATE Performed By: #### L 3300.0960, L3700.3000, L100.0500, L3310.0000, L503.5510, L500.4050, L503.0105 ####[facility] [address] [place], [address] Comprehensive Metabolic Profil Normal 136-145 [facility] Comment on above: Result Comment: DUPL ICATE Performed By: #### L 3300.0960, L3700.3000, L100.0500, L3310.0000, L503.5510, L500.4050, L503.0105 ####[facility] [address] [place], [address] Lipid Profileon 12-05-2023 Cholesterol [Mass/Vol] 111 mg/dL Normal 200 [facility] Comment on above: Order Comment: DR.BA NGUYEN ORDERED CMP, LIPID, PROL, CBCD,AMM, KEPP,PHENO,VITD1,B12DR SUZE ORDERED TSH, VITD, FT4, LIPID, CMP, PSAD, CBCDDROrder Date: 10/25/23Order Info: [id number] - CMPOrder Info: [id number] - LIPIDOrder Info: [id number] - TSHOrder Info: [id number] - PSADOrder Info: [id number] - T4F Result Comment: <200 mg/dL Desirable 200-240 mg/dL Borderline >240 mg/dL High Risk Performed By: #### L 100.0100, L501.9940, L500.4100, L501.9520, L500.4050, L506.0400, L506.1000 ####[facility] [address] [place], [address] Cholesterol in HDL [Mass/Vol] 41 mg/dL Normal [facility] Comment on above: Order Comment: DR.BA NGUYEN ORDERED CMP, LIPID, PROL, CBCD,AMM, KEPP,PHENO,VITD1,B12DR SUZE ORDERED TSH, VITD, FT4, LIPID, CMP, PSAD, CBCDDROrder Date: 10/25/23Order Info: [id number] - CMPOrder Info: [id number] - LIPIDOrder Info: [id number] - TSHOrder Info: [id number] - PSADOrder Info: 7 - T4F Result Comment: The drugs N-Acetylcysteine and Metamizole may falsely depress this assay. Reference Range HDL <40 mg/dL Low HDL Cholesterol HDL >or= 60 mg/dL High HDL Cholesterol Performed By: #### L 100.0100, L501.9940, L500.4100, L501.9520, L500.4050, L506.0400, L506.1000 ####[facility] [address] [facility] [place], [address] Cholesterol in LDL [Mass/Vol] 50 mg/dL Normal 0-130 [facility] Comment on above: Order Comment: DR.BA NGUYEN ORDERED CMP, LIPID, PROL, CBCD,AMM, KEPP,PHENO,VITD1,B12DR SUZE ORDERED TSH, VITD, FT4, LIPID, CMP, PSAD, CBCDDROrder Date: 10/25/23Order Info: [id number] - CMPOrder Info: [id number] - LIPIDOrder Info: 6-3 - TSHOrder Info: [id number] - PSADOrder Info: 7 - T4F Performed By: #### L 100.0100, L501.9940, L500.4100, L501.9520, L500.4050, L506.0400, L506.1000 ####[facility] [address] [place], [place], [id number] Cholesterol in VLDL [Mass/Vol] 20 mg/dL Normal 5-40 [facility] Comment on above: Order Comment: DR.BA NGUYEN ORDERED CMP, LIPID, PROL, CBCD,AMM, KEPP,PHENO,VITD1,B12DR SUZE ORDERED TSH, VITD, FT4, LIPID, CMP, PSAD, CBCDDROrder Date: 10/25/23Order Info: [id number] - CMPOrder Info: [id number] - LIPIDOrder Info: [id number] - TSHOrder Info: 83-1 - PSADOrder Info: [id number] - T4F Performed By: #### L 100.0100, L501.9940, L500.4100, L501.9520, L500.4050, L506.0400, L506.1000 ####[facility] [address] [place], [address] Triglyceride [Mass/Vol] 99 mg/dL Normal [facility] Comment on above: Order Comment: DR.BA NGUYEN ORDERED CMP, LIPID, PROL, CBCD,AMM, KEPP,PHENO,VITD1,B12DR SUZE ORDERED TSH, VITD, FT4, LIPID, CMP, PSAD, CBCDDROrder Date: 10/25/23Order Info: 86- - CMPOrder Info: [id number] - LIPIDOrder Info: 3 - TSHOrder Info: [id number] - PSADOrder Info: 7 - T4F Result Comment: The drugs N-Acetylcysteine and Metamizole may falsely depress this assay. Serum Triglycerides Reference Interval Normal <150 mg/dL Borderline high 150 - 199 mg/dL High 200 - 499 mg/dL Very High > or = 500 mg/dL Performed By: #### L 100.0100, L501.9940, L500.4100, L501.9520, L500.4050, L506.0400, L506.1000 ####[facility] [address] [place], [place], [phone](327) PSA,Total- Diagnosticon 11-24 PSA, DIAGNOSTIC 1.25 ng/mL Normal 0.0-4.0 [facility] Comment on above: Order Comment: DR.BA NGUYEN ORDERED CMP, LIPID, PROL, CBCD,AMM, KEPP,PHENO,VITD1,B12DR SUZE ORDERED TSH, VITD, FT4, LIPID, CMP, PSAD, CBCDDROrder Date: 10/25/23Order Info: [id number] - CMPOrder Info: [id number] - LIPIDOrder Info: [id number] - TSHOrder Info: [id number] - PSADOrder Info: 3027 - T4F Result Comment: This test was performed using the TPSA assay method for the [employer] chemistry system. Values obtained with different assay methods cannot be used interchangably. When changing PSA assays in the course of monitoring a patient, additional sequential testing should be carried out to confirm baseline values. Performed By: #### L 100.0100, L501.9940, L500.4100, L501.9520, L500.4050, L506.0400, L506.1000 ####[facility] [address] [place], [place], [id number] T4 Free Directon 12-05-2023 T4 FREE DIRECT 0.92 ng/dL Normal 0.76-1.46 [facility] Comment on above: Order Comment: DR.BA NGUYEN ORDERED CMP, LIPID, PROL, CBCD,AMM, KEPP,PHENO,VITD1,B12DR SUZE ORDERED TSH, VITD, FT4, LIPID, CMP, PSAD, CBCDDROrder Date: 10/25/23Order Info: [id number] - CMPOrder Info: [id number] - LIPIDOrder Info: 6-3 - TSHOrder Info: 1 - PSADOrder Info: [id number] - T4F Performed By: #### L 100.0100, L501.9940, L500.4100, L501.9520, L500.4050, L506.0400, L506.1000 ####[facility] [address] [place], [place], [phone](909) Thyroid Stim Hormone (TSH)on 12-05-2023 TSH 2.310 uIU/mL Normal 0.358-3.740 [facility] Comment on above: Order Comment: DR.BA NGUYEN ORDERED CMP, LIPID, PROL, CBCD,AMM, KEPP,PHENO,VITD1,B12DR SUZE ORDERED TSH, VITD, FT4, LIPID, CMP, PSAD, CBCDDROrder Date: 10/25/23Order Info: [id number] - CMPOrder Info: [id number] - LIPIDOrder Info: [id number] - TSHOrder Info: [id number] - PSADOrder Info: [id number] - T4F Performed By: #### L 100.0100, L501.9940, L500.4100, L501.9520, L500.4050, L506.0400, L506.1000 ####[facility] [address] [place], [address] Vitamin B12on 12-05-2023 Cobalamin (Vitamin B12) [Mass/Vol] 564 pg/mL Normal 211-911 [facility] Comment on above: Order Comment: DR.BA NGUYEN ORDERED CMP, LIPID, PROL, CBCD,AMM, KEPP,PHENO,VITD1,B12DR SUZE ORDERED TSH, VITD, FT4, LIPID, CMP, PSAD, CBCDDR Performed By: #### L 3300.0960, L3700.3000, L100.0500, L3310.0000, L503.5510, L500.4050, L503.0105 ####[facility] [address] [place], [address] Vitamin D,25 Hydroxyon 12-04 Vitamin D 25-OH 61.7 ng/mL Normal [facility] Comment on above: Order Comment: DR.BA NGUYEN ORDERED CMP, LIPID, PROL, CBCD,AMM, KEPP,PHENO,VITD1,B12DR SUZE ORDERED TSH, VITD, FT4, LIPID, CMP, PSAD, CBCDDRDR.KYLE ORDERED CMP, LIPID, PROL, CBCD,AMM, KEPP,PHENO,VITD1,B12DR SUZE ORDERED TSH, VITD, FT4, LIPID, CMP, PSAD, CBCDDR Result Comment: Jesi min D 25(OH) Status Range Deficiency <20 ng/mL (50nmol/L) Insufficiency 20 - 30 ng/mL (50 - 75 nmol/L) Sufficiency 30 - 100 ng/mL (75 - 250 nmol/L) Toxicity >100 ng/mL (>250 nmol/L) Performed By: #### L 100.0100, L501.9940, L500.4100, L501.9520, L500.4050, L506.0400, L506.1000 ####[facility] [address] [place], [address] Basophil percentageOrdered B y: Vini Feliciano on 06-12-2023 Ammonia (P) [Moles/Vol] 12.0 umol/L 11-32 [facility] Basophil percentage 17.0 ug/mL 10.0-40.0 [facility] Bilirubin [Mass/Vol] 0.40 mg/dL 0.20-1.00 [facility] Comment on above: For patients on eltr ombopag therapy, use of Dimension [place] TBIL is not recommended. Chloride [Moles/Vol] 102 mmol/L 98-107 [facility] Glucose [Mass/Vol] 128 mg/dL 74-106 [facility] Comment on above: Fasting Glucose resu lt greater than or equal to 126 mg/dL suggests DIABETES MELLITUS per A.D.A. criteria. Hemoglobin (Bld) [Mass/Vol] 15.6 g/dL 13.0-16.5 [facility] Potassium [Moles/Vol] 4.1 mmol/L 3.5-5.1 [facility] Protein [Mass/Vol] 7.5 g/dL 6.4-8.2 [facility] Sodium [Moles/Vol] 137 mmol/L 136-145 [facility] WBC (Bld) [#/Vol] 10.1 10*3/uL 4.4-11.0 [facility] Determination of erythrocyte mean corpuscular volume (MCV)Ordered By: Vini Feliciano on 06-12-2023 MCV (RBC) [Entitic vol] 88.8 fL 80-94 [facility] Erythrocyte distribution wid th ratioOrdered By: Vini Feliciano on 06-12-2023 Erythrocyte distribution width (RBC) [Ratio] 12.1 % 11.6-14.6 [facility] Erythrocyte distribution wid th standard deviationOrdered By: Vinicandy Feliciano on 06-12-2023 Erythrocyte distribution width (RBC) [Entitic vol] 39.6 fL 35.1-43.9 [facility] Hematocrit Auto (Bld) [Volum e fraction]Ordered By: Vini Feliciano on 06-12-2023 Hematocrit (Bld) [Volume fraction] 45.8 % 40-54 [facility] Laboratory - Chemistry and C hemistry - challengeOrdered By: Vini Feliciano on 06-12-2023 Albumin/Globulin [Mass ratio] 1.0 {ratio} 0.9-2.4 [facility] ALP [Catalytic activity/Vol] 101 U/L 45-117 [facility] ALT [Catalytic activity/Vol] 27 U/L 16-61 [facility] CO2 [Moles/Vol] 28.0 mmol/L 21.0-32.0 [facility] Globulin (S) [Mass/Vol] 3.7 g/dL 2.2-4.2 [facility] Urea nitrogen/Creatinine [Mass ratio] 14.2 mg/mg 10-20 [facility] Laboratory - Hematology and Cell countsOrdered By: Vini Feliciano on 06-12-2023 MCH (RBC) [Entitic mass] 30.2 pg 27.0-32.0 [facility] MCHC (RBC) [Mass/Vol] 34.1 g/dL 32-36 [facility] Platelet mean volume (Bld) [Entitic vol] 9.0 fL 6.2-12.0 [facility] Platelets (Bld) [#/Vol] 277 10*3/uL 150-450 [facility] No Panel InformationOrdered By: Vini Feliciano on 06-12-2023 Estimated GFR (MDRD) Amer 89 mL/min >60 [facility] Comment on above: GFR Calc Estimated GFR (MDRD) Non-Af Amer 74 mL/min >60 [facility] Comment on above: Non- GFR Calc Levetiracetam (Keppra) Level 18.9 ug/mL 10.0-40.0 [facility] Comment on above: Performed at: [facility] - [address] [id number] Director: Vickey Romeo MD, Phone: [phone] RBC Auto (Bld) [#/Vol]Ordere d By: Vini Feliciano on 06-12-2023 RBC (Bld) [#/Vol] 5.16 10*6/uL 4.6-6.2 [facility] Serum or plasma calcium jung urement (mass/volume)Ordered By: Vini Feliciano on 06-12-2023 Calcium [Mass/Vol] 9.3 mg/dL 8.5-10.1 [facility] Serum or plasma creatinine m easurement (mass/volume)Ordered By: Vini Feliciano on 06-12-2023 Creatinine [Mass/Vol] 1.06 mg/dL 0.70-1.30 [facility] Comment on above: The validity of the calculated GFR & GFRAA in patients over 70 years has not been determined. Clinical correlation is essential. Serum or plasma urea nitroge n measurement (mass/volume)Ordered By: Vini Feliciano on 06-12-2023 Urea nitrogen [Mass/Vol] 15 mg/dL 7-18 [facility] Thin prep Papanicolaou smear with manual screeningOrdered By: Vini Feliciano on 06-12-2023 Thin prep Papanicolaou smear with manual screening 3.8 g/dL 3.2-5.0 [facility] Thin prep Papanicolaou smear with manual screening 19 U/L 15-37 [facility] Thin prep Papanicolaou smear with manual screening 7 5-15 [facility] Absolute lymphocyte countOrd ered By: Dean Felipe on 05-01-2023 Lymphocytes Auto (Unsp spec) [#/Vol] 2.71 10*3/uL 0.83-4.51 [facility] Automated lymphocyte count a s percentage of total leukocytesOrdered By: Dean Felipe on 05-01-2023 Lymphocytes/100 WBC Auto (Unsp spec) 27.1 % 19-41 [facility] Basophil percentageOrdered B y: Dean Felipe on 05-01-2023 Basophils/100 WBC (Bld) 0.6 % 0-1 [facility] Bilirubin [Mass/Vol] 0.20 mg/dL 0.20-1.00 [facility] Comment on above: For patients on eltr ombopag therapy, use of Dimension [place] TBIL is not recommended. Chloride [Moles/Vol] 98 mmol/L 98-107 [facility] Cholesterol [Mass/Vol] 107 mg/dL <200 [facility] Comment on above: <200 mg/dL Desirable 200-240 mg/dL Borderline >240 mg/dL High Risk Eosinophils/100 WBC (Bld) 3.1 % 0-5 [facility] Glucose [Mass/Vol] 96 mg/dL 74-106 [facility] Hemoglobin (Bld) [Mass/Vol] 14.3 g/dL 13.0-16.5 [facility] Monocytes/100 WBC (Bld) 8.8 % 0-10 [facility] Neutrophils (Bld) [#/Vol] 6.0 10*3/uL 2.0-7.7 [facility] Neutrophils/100 WBC (Bld) 60.2 % 47-70 [facility] Potassium [Moles/Vol] 4.2 mmol/L 3.5-5.1 [facility] Protein [Mass/Vol] 6.9 g/dL 6.4-8.2 [facility] Sodium [Moles/Vol] 129 mmol/L 136-145 [facility] Triglyceride [Mass/Vol] 120 mg/dL <199 [facility] Comment on above: The drugs N-Acetylcy steine and Metamizole may falsely depress this assay.Serum Triglycerides Reference Interval Normal <150 mg/dL Borderline high 150 - 199 mg/dL High 200 - 499 mg/dL Very High > or = 500 mg/dL WBC (Bld) [#/Vol] 10.0 10*3/uL 4.4-11.0 [facility] Determination of erythrocyte mean corpuscular volume (MCV)Ordered By: Dean Felipe on 05-01-2023 MCV (RBC) [Entitic vol] 86.8 fL 80-94 [facility] Erythrocyte distribution wid th ratioOrdered By: [facility] on 05-01-2023 Erythrocyte distribution width (RBC) [Ratio] 11.9 % 11.6-14.6 [facility] Erythrocyte distribution wid th standard deviationOrdered By: [facility] on 05-01-2023 Erythrocyte distribution width (RBC) [Entitic vol] 38.1 fL 35.1-43.9 [facility] Hematocrit Auto (Bld) [Volum e fraction]Ordered By: [facility] on 05-01-2023 Hematocrit (Bld) [Volume fraction] 41.6 % 40-54 [facility] Immature granulocytes/100 WB C Auto (Bld)Ordered By: [facility] on 05-01-2023 Immature granulocytes/100 WBC (Bld) 0.200 % 0.0-0.9 [facility] Comment on above: IG% - Immature Granu locytes (promyelocytes, myelocytes and metamyelocytes) > 1% indicates that a LEFT SHIFT is Present. Laboratory - Chemistry and C hemistry - challengeOrdered By: [facility] on 05-01-2023 Albumin/Globulin [Mass ratio] 1.1 {ratio} 0.9-2.4 [facility] ALP [Catalytic activity/Vol] 99 U/L 45-117 [facility] ALT [Catalytic activity/Vol] 26 U/L 16-61 [facility] Cholesterol in HDL [Mass/Vol] 38 mg/dL >40 [facility] Comment on above: The drugs N-Acetylcy steine and Metamizole may falsely depress this assay. Reference Range HDL <40 mg/dL Low HDL Cholesterol HDL >or= 60 mg/dL High HDL Cholesterol Cholesterol in LDL [Mass/Vol] 45 mg/dL 0-130 [facility] CO2 [Moles/Vol] 24.0 mmol/L 21.0-32.0 [facility] Globulin (S) [Mass/Vol] 3.3 g/dL 2.2-4.2 [facility] Urea nitrogen/Creatinine [Mass ratio] 16.6 mg/mg 10-20 [facility] Laboratory - Hematology and Cell countsOrdered By: [facility] 05-01-2023 MCH (RBC) [Entitic mass] 29.9 pg 27.0-32.0 [facility] MCHC (RBC) [Mass/Vol] 34.4 g/dL 32-36 [facility] Nucleated RBC/100 WBC (Bld) [Ratio] 0 % 0-5 [facility] Platelet mean volume (Bld) [Entitic vol] 9.1 fL 6.2-12.0 [facility] Platelets (Bld) [#/Vol] 318 10*3/uL 150-450 [facility] No Panel InformationOrdered By: Dean Felipe on 05-01-2023 Urine Microalbumin/Creatinine Ratio 33.3 mg/g CRE <30 [facility] Estimated GFR (MDRD) Amer 100 mL/min >60 [facility] Comment on above: GFR Calc Estimated GFR (MDRD) Non-Af Amer 82 mL/min >60 [facility] Comment on above: Non- GFR Calc Vitamin D 25-Hydroxy 59.6 ng/mL [facility] Comment on above: Vitamin D 25(OH) Sta tus Range Deficiency <20 ng/mL (50nmol/L) Insufficiency 20 - 30 ng/mL (50 - 75 nmol/L) Sufficiency 30 - 100 ng/mL (75 - 250 nmol/L) Toxicity >100 ng/mL (>250 nmol/L) VLDL Cholesterol 24 mg/dL 5-40 [facility] RBC Auto (Bld) [#/Vol]Ordere d By: Dean Felipe on 05-01-2023 RBC (Bld) [#/Vol] 4.79 10*6/uL 4.6-6.2 [facility] Serum or plasma calcium jung urement (mass/volume)Ordered By: Dean Felipe on 05-01-2023 Calcium [Mass/Vol] 8.9 mg/dL 8.5-10.1 [facility] Serum or plasma creatinine m easurement (mass/volume)Ordered By: Dean Felipe on 05-01-2023 Creatinine [Mass/Vol] 0.96 mg/dL 0.70-1.30 [facility] Comment on above: The validity of the calculated GFR & GFRAA in patients over 70 years has not been determined. Clinical correlation is essential. Serum or plasma thyroid stim ulating hormone (TSH) measurement (units/volume)Ordered By: Dean Felipe on 05-01-2023 TSH Qn 3.02 uIU/mL 0.358-3.74 [facility] Serum or plasma urea nitroge n measurement (mass/volume)Ordered By: Dean Felipe on 05-01-2023 Urea nitrogen [Mass/Vol] 16 mg/dL 7-18 [facility] Thin prep Papanicolaou smear with manual screeningOrdered By: Dean Felipe on 05-01-2023 Thin prep Papanicolaou smear with manual screening 15.0 mg/L NO RANGE EST. [facility] Thin prep Papanicolaou smear with manual screening 3.6 g/dL 3.2-5.0 [facility] Thin prep Papanicolaou smear with manual screening 17 U/L 15-37 [facility] Thin prep Papanicolaou smear with manual screening 7 5-15 [facility] Urine creatinine measurement (mass/volume)Ordered By: Dean Felipe on 05-01-2023 Creatinine (U) [Mass/Vol] 45.10 mg/dL NO RANGE EST. [facility] Whole blood hemoglobin A1c/t otal hemoglobin ratio (mass fraction)Ordered By: Dean Felipe on 05-01-2023 HbA1c (Bld) [Mass fraction] 6.0 % 3.8-5.6 [facility] Comment on above: Normal < 5.7 % Predi abetic 5.7 - 6.4 % Diabetic >or= 6.5 % Please note range changes. Basophil percentageOrdered B y: Vini Feliciano on 12-19-2022 Ammonia (P) [Moles/Vol] 14.0 umol/L 11-32 [facility] Basophil percentage 18.2 ug/mL 10.0-40.0 [facility] Bilirubin [Mass/Vol] 0.30 mg/dL 0.20-1.00 [facility] Comment on above: For patients on eltr ombopag therapy, use of Dimension [place] TBIL is not recommended. Chloride [Moles/Vol] 102 mmol/L 98-107 [facility] Glucose [Mass/Vol] 130 mg/dL 74-106 [facility] Comment on above: Fasting Glucose resu lt greater than or equal to 126 mg/dL suggests DIABETES MELLITUS per A.D.A. criteria. Potassium [Moles/Vol] 4.3 mmol/L 3.5-5.1 [facility] Protein [Mass/Vol] 7.6 g/dL 6.4-8.2 [facility] Sodium [Moles/Vol] 134 mmol/L 136-145 [facility] Laboratory - Chemistry and C hemistry - challengeOrdered By: Vini Feliciano on 12-19-2022 ALP [Catalytic activity/Vol] 112 U/L 45-117 [facility] ALT [Catalytic activity/Vol] 27 U/L 16-61 [facility] CO2 [Moles/Vol] 28.0 mmol/L 21.0-32.0 [facility] Globulin (S) [Mass/Vol] 3.9 g/dL 2.2-4.2 [facility] Urea nitrogen/Creatinine [Mass ratio] 16.0 mg/mg 10-20 [facility] No Panel InformationOrdered By: Vini Feliciano on 12-19-2022 Estimated GFR (MDRD) Amer 103 mL/min >60 [facility] Comment on above: GFR Calc Estimated GFR (MDRD) Non-Af Amer 85 mL/min >60 [facility] Comment on above: Non- GFR Calc Levetiracetam (Keppra) Level 33.4 ug/mL 10.0-40.0 [facility] Comment on above: Performed at: - [address] [id number] Director: Vickey Romeo MD, Phone: [phone] Serum or plasma albumin jung urement (mass/volume)Ordered By: Vini Feliciano on 12-19-2022 Albumin [Mass/Vol] 3.7 g/dL 3.2-5.0 [facility] Serum or plasma albumin/glob ulin mass ratioOrdered By: Vini Feliciano on 12-19-2022 Albumin/Globulin [Mass ratio] 0.9 {ratio} 0.9-2.4 [facility] Serum or plasma calcium jung urement (mass/volume)Ordered By: Vini Feliciano on 12-19-2022 Calcium [Mass/Vol] 10.0 mg/dL 8.5-10.1 [facility] Serum or plasma creatinine m easurement (mass/volume)Ordered By: Vini Feliciano on 12-19-2022 Creatinine [Mass/Vol] 0.94 mg/dL 0.70-1.30 [facility] Comment on above: The validity of the calculated GFR & GFRAA in patients over 70 years has not been determined. Clinical correlation is essential. Serum or plasma urea nitroge n measurement (mass/volume)Ordered By: Vini Feliciano on 12-19-2022 Urea nitrogen [Mass/Vol] 15 mg/dL 7-18 [facility] Thin prep Papanicolaou smear with manual screeningOrdered By: [facility] on 12-19-2022 Thin prep Papanicolaou smear with manual screening 12 U/L 15-37 [facility] Thin prep Papanicolaou smear with manual screening 4 5-15 [facility] Absolute lymphocyte countOrd ered By: Alice Mckeon on 11-05-2022 Lymphocytes Auto (Unsp spec) [#/Vol] 2.33 10*3/uL 0.83-4.51 [facility] Basophil percentageOrdered B y: Alice Mckeon on 11-05-2022 Basophil percentage 3.2 mg/dL 2.5-4.9 [facility] Basophils/100 WBC (Bld) 0.5 % 0-1 [facility] Bilirubin [Mass/Vol] 0.30 mg/dL 0.20-1.00 [facility] Comment on above: For patients on eltr ombopag therapy, use of Dimension [place] TBIL is not recommended. Chloride [Moles/Vol] 99 mmol/L 98-107 [facility] Eosinophils/100 WBC (Bld) 0.6 % 0-5 [facility] Glucose [Mass/Vol] 124 mg/dL 74-106 [facility] Comment on above: Fasting Glucose resu lt from 100 to 125 mg/dL suggests IMPAIRED HOMEOSTASIS per A.D.A. criteria. Neutrophils (Bld) [#/Vol] 5.1 10*3/uL 2.0-7.7 [facility] Neutrophils/100 WBC (Bld) 55.5 % 47-70 [facility] Potassium [Moles/Vol] 3.8 mmol/L 3.5-5.1 [facility] Protein [Mass/Vol] 6.7 g/dL 6.4-8.2 [facility] Sodium [Moles/Vol] 133 mmol/L 136-145 [facility] WBC (Bld) [#/Vol] 9.3 10*3/uL 4.4-11.0 [facility] Blood erythrocytes count (nu mber/volume)Ordered By: Alice Mckeon on 11-05-2022 RBC (Bld) [#/Vol] 4.70 10*6/uL 4.6-6.2 [facility] Blood hemoglobin measurement (mass/volume)Ordered By: Alice Mckeon on 11-05-2022 Hemoglobin (Bld) [Mass/Vol] 13.9 g/dL 13.0-16.5 [facility] Blood lymphocytes/100 leukoc ytesOrdered By: Alice Mckeon on 11-05-2022 Lymphocytes/100 WBC (Bld) 25.1 % 19-41 [facility] Blood monocytes/100 leukocyt esOrdered By: Alice Mckeon on 11-05-2022 Monocytes/100 WBC (Bld) 18.0 % 0-10 [facility] Blood platelet mean volumeOr dered By: Alice Mckeon on 11-05-2022 Platelet mean volume (Bld) [Entitic vol] 9.2 fL 6.2-12.0 [facility] Determination of erythrocyte mean corpuscular volume (MCV)Ordered By: Alice Mckeon on 11-05-2022 MCV (RBC) [Entitic vol] 86.2 fL 80-94 [facility] Glucose Glucometer (dC) [M ass/Vol]Ordered By: Alice Mckeon on 11-05-2022 Glucose [Mass/Vol] 130 mg/dL 74-106 [facility] Comment on above: MANAGEMENT OF PATIEN T CARE PER NURSING PROTOCOL Hematocrit Auto (Bld) [Volum e fraction]Ordered By: Alice Mckeon on 11-05-2022 Hematocrit (Bld) [Volume fraction] 40.5 % 40-54 [facility] Laboratory - Chemistry and C hemistry - challengeOrdered By: Alice Mckeon on 11-05-2022 ALP [Catalytic activity/Vol] 82 U/L 45-117 [facility] ALT [Catalytic activity/Vol] 35 U/L 16-61 [facility] CO2 [Moles/Vol] 26.0 mmol/L 21.0-32.0 [facility] Globulin (S) [Mass/Vol] 3.7 g/dL 2.2-4.2 [facility] Magnesium [Mass/Vol] 2.0 mg/dL 1.6-2.6 [facility] Urea nitrogen/Creatinine [Mass ratio] 17.5 mg/mg 10-20 [facility] Laboratory - Hematology and Cell countsOrdered By: Alice Mckeon on 11-05-2022 Erythrocyte distribution width (RBC) [Entitic vol] 37.2 fL 35.1-43.9 [facility] Erythrocyte distribution width (RBC) [Ratio] 11.9 % 11.6-14.6 [facility] Immature granulocytes/100 WBC (Bld) 0.300 % 0.0-0.9 [facility] Comment on above: IG% - Immature Granu locytes (promyelocytes, myelocytes and metamyelocytes) > 1% indicates that a LEFT SHIFT is Present. MCH (RBC) [Entitic mass] 29.6 pg 27.0-32.0 [facility] Nucleated RBC/100 WBC (Bld) [Ratio] 0 % 0-5 [facility] MCHC Auto (RBC) [Mass/Vol]Or dered By: Alice Mckeon on 11-05-2022 MCHC (RBC) [Mass/Vol] 34.3 g/dL 32-36 [facility] No Panel InformationOrdered By: Alice Mckeon on 11-05-2022 Estimated Creatinine Clearance Calc 85.50 ml/min [facility] Estimated GFR (MDRD) Amer 123 mL/min >60 [facility] Comment on above: GFR Calc Estimated GFR (MDRD) Non-Af Amer 102 mL/min >60 [facility] Comment on above: Non- GFR Calc Thyroid Stimulating Hormone (TSH) 3.49 uIU/mL 0.358-3.74 [facility] Platelets bldOrdered By: Samanta Mckeon on 11-05-2022 Platelets (Bld) [#/Vol] 275 10*3/uL 150-450 [facility] Serum or plasma albumin jung urement (mass/volume)Ordered By: Alice Mckeon on 11-05-2022 Albumin [Mass/Vol] 3.0 g/dL 3.2-5.0 [facility] Serum or plasma albumin/glob ulin mass ratioOrdered By: Alice Mckeon on 11-05-2022 Albumin/Globulin [Mass ratio] 0.8 {ratio} 0.9-2.4 [facility] Serum or plasma calcium jung urement (mass/volume)Ordered By: Alice Mckeon on 11-05-2022 Calcium [Mass/Vol] 8.4 mg/dL 8.5-10.1 [facility] Serum or plasma creatinine m easurement (mass/volume)Ordered By: Alice Mckeon on 11-05-2022 Creatinine [Mass/Vol] 0.80 mg/dL 0.70-1.30 [facility] Comment on above: The validity of the calculated GFR & GFRAA in patients over 70 years has not been determined. Clinical correlation is essential. Serum or plasma urea nitroge n measurement (mass/volume)Ordered By: Alice Mckeon on 11-05-2022 Urea nitrogen [Mass/Vol] 14 mg/dL 7-18 [facility] Thin prep Papanicolaou smear with manual screeningOrdered By: Alice Mckeon on 11-05-2022 Thin prep Papanicolaou smear with manual screening 63 U/L 15-37 [facility] Thin prep Papanicolaou smear with manual screening 8 5-15 [facility] Absolute lymphocyte countOrd ered By: Jefferson Lazar on 11-04-2022 Lymphocytes Auto (Unsp spec) [#/Vol] 0.63 10*3/uL 0.83-4.51 [facility] Basophil percentageOrdered B y: Alice Mckeon on 11-04-2022 Basophil percentage 0 SEEN /hpf 0-5 [facility] Basophil percentageOrdered B y: Jefferson Lazar on 11-04-2022 Basophils/100 WBC (Bld) 0.4 % 0-1 [facility] Chloride [Moles/Vol] 95 mmol/L 98-107 [facility] Eosinophils/100 WBC (Bld) 0.1 % 0-5 [facility] Glucose [Mass/Vol] 152 mg/dL 74-106 [facility] Comment on above: Fasting Glucose resu lt greater than or equal to 126 mg/dL suggests DIABETES MELLITUS per A.D.A. criteria. Neutrophils (Bld) [#/Vol] 8.9 10*3/uL 2.0-7.7 [facility] Neutrophils/100 WBC (Bld) 80.2 % 47-70 [facility] Potassium [Moles/Vol] 3.9 mmol/L 3.5-5.1 [facility] Sodium [Moles/Vol] 128 mmol/L 136-145 [facility] WBC (Bld) [#/Vol] 11.1 10*3/uL 4.4-11.0 [facility] Bilirubin Test strip Ql (U)O rdered By: Alice Mckeon on 11-04-2022 Bilirubin Ql (U) Negative Negative [facility] Blood erythrocytes count (nu mber/volume)Ordered By: Jefferson Lazar on 11-04-2022 RBC (Bld) [#/Vol] 4.41 10*6/uL 4.6-6.2 [facility] Blood hemoglobin measurement (mass/volume)Ordered By: Jefferson Lazar on 11-04-2022 Hemoglobin (Bld) [Mass/Vol] 13.2 g/dL 13.0-16.5 [facility] Blood lymphocytes/100 leukoc ytesOrdered By: Jefferson Lazar on 11-04-2022 Lymphocytes/100 WBC (Bld) 5.7 % 19-41 [facility] Blood monocytes/100 leukocyt esOrdered By: Jefferson Lazar on 11-04-2022 Monocytes/100 WBC (Bld) 13.2 % 0-10 [facility] Blood platelet mean volumeOr dered By: Jefferson Lazar on 11-04-2022 Platelet mean volume (Bld) [Entitic vol] 9.1 fL 6.2-12.0 [facility] Determination of erythrocyte mean corpuscular volume (MCV)Ordered By: Jefferson Lazar on 11-04-2022 MCV (RBC) [Entitic vol] 85.7 fL 80-94 [facility] Hematocrit Auto (Bld) [Volum e fraction]Ordered By: Jefferson Lazar on 11-04-2022 Hematocrit (Bld) [Volume fraction] 37.8 % 40-54 [facility] Ketones Test strip Ql (U)Ord ered By: Alice Mckeon on 11-04-2022 Ketones Ql (U) 5 mg/dl Negative [facility] Laboratory - Chemistry and C hemistry - challengeOrdered By: Jefferson Lazar on 11-04-2022 CO2 [Moles/Vol] 24.0 mmol/L 21.0-32.0 [facility] Urea nitrogen/Creatinine [Mass ratio] 15.7 mg/mg 10-20 [facility] Laboratory - Hematology and Cell countsOrdered By: Jefferson Lazar on 11-04-2022 Erythrocyte distribution width (RBC) [Entitic vol] 37.2 fL 35.1-43.9 [facility] Erythrocyte distribution width (RBC) [Ratio] 11.8 % 11.6-14.6 [facility] Immature granulocytes/100 WBC (Bld) 0.400 % 0.0-0.9 [facility] Comment on above: IG% - Immature Granu locytes (promyelocytes, myelocytes and metamyelocytes) > 1% indicates that a LEFT SHIFT is Present. MCH (RBC) [Entitic mass] 29.9 pg 27.0-32.0 [facility] Nucleated RBC/100 WBC (Bld) [Ratio] 0 % 0-5 [facility] MCHC Auto (RBC) [Mass/Vol]Or dered By: Jefferson Lazar on 11-04-2022 MCHC (RBC) [Mass/Vol] 34.9 g/dL 32-36 [facility] Mucus LM Ql (Urine sed)Order ed By: Alice Mckeon on 11-04-2022 Mucus Ql (Urine sed) 0 SEEN /hpf [facility] Nitrite Test strip Ql (U)Ord ered By: Alice Mckeon on 11-04-2022 Nitrite Ql (U) Negative Negative [facility] No Panel InformationOrdered By: Jefferson Lazar on 11-04-2022 D-Dimer Quantitative (PE/DVT) 0.39 FEU/ug/m 0.27-0.49 [facility] Comment on above: NORMAL D-Dimer level (<0.50) indicates no DVT or PE. Estimated Creatinine Clearance Calc 72.00 ml/min [facility] Estimated GFR (MDRD) Amer 101 mL/min >60 [facility] Comment on above: GFR Calc Estimated GFR (MDRD) Non-Af Amer 83 mL/min >60 [facility] Comment on above: Non- GFR Calc Platelets bldOrdered By: Gerry Lazar on 11-04-2022 Platelets (Bld) [#/Vol] 251 10*3/uL 150-450 [facility] Protein Test strip Ql (U)Ord ered By: Alice Mckeon on 11-04-2022 Protein Ql (U) 30 mg/dl Negative [facility] SARS-CoV-2 (COVID-19) Ag IA. rapid Ql (Resp)Ordered By: Jefferson Lazar on 11-04-2022 SARS-CoV-2 Antigen (Rapid) SARS-CoV-2 (COVID 19) [facility] Serum or plasma calcium jung urement (mass/volume)Ordered By: Jefferson Lazar on 11-04-2022 Calcium [Mass/Vol] 8.5 mg/dL 8.5-10.1 [facility] Serum or plasma creatinine m easurement (mass/volume)Ordered By: Jefferson Lazar on 11-04-2022 Creatinine [Mass/Vol] 0.95 mg/dL 0.70-1.30 [facility] Comment on above: The validity of the calculated GFR & GFRAA in patients over 70 years has not been determined. Clinical correlation is essential. Serum or plasma urea nitroge n measurement (mass/volume)Ordered By: Jefferson Lazar on 11-04-2022 Urea nitrogen [Mass/Vol] 15 mg/dL 7-18 [facility] Squamous epithelial cells de tection in urine sediment by light microscopyOrdered By: Alice Mckeon on 11-04-2022 Epithelial cells.squamous LM Ql (Urine sed) 0 SEEN /hpf 0-5 [facility] Thin prep Papanicolaou smear with manual screeningOrdered By: Jefferson Lazar on 11-04-2022 Thin prep Papanicolaou smear with manual screening 9 5-15 [facility] Urine blood detectionOrdered By: Alice Mckeon on 11-04-2022 RBC Ql (U) 50 /ul Negative [facility] RBC Ql (U) 0 SEEN /hpf 0-5 [facility] Urine clarityOrdered By: Samanta Mckeon on 11-04-2022 Clarity (U) Clear Clear [facility] Urine color determinationOrd ered By: Alice Mckeon on 11-04-2022 Color (U) Yellow Yellow [facility] Urine glucose detectionOrder ed By: Alice Mckeon on 11-04-2022 Glucose Ql (U) 250 mg/dl Normal [facility] Urine leukocyte esterase det ection by dipstickOrdered By: Alice Mckeon on 11-04-2022 Leukocyte esterase Test strip Ql (U) Negative Negative [facility] Urine pHOrdered By: Alice Mckeon on 11-04-2022 pH (U) 6.5 [pH] 5.0 - 8.0 [facility] Urine sediment bacteria coun t by microscopy (number/high power field)Ordered By: Alice Mckeon on 11-04-2022 Bacteria LM.HPF (Urine sed) [#/Area] 0 /[HPF] None Seen [facility] Urine specific gravity measu rementOrdered By: Alice Mckeon on 11-04-2022 Specific gravity (U) [Rel density] 1.010 1.002-1.030 [facility] Urobilinogen Auto test strip Ql (U)Ordered By: Alice Mckeon on 11-04-2022 Urobilinogen Ql (U) Normal mg/dl Normal [facility] Absolute lymphocyte countOrd ered By: Dean Felipe on 10-25-2022 Lymphocytes Auto (Unsp spec) [#/Vol] 2.35 10*3/uL 0.83-4.51 [facility] Basophil percentageOrdered B y: Dean Felipe on 10-25-2022 Basophils/100 WBC (Bld) 0.7 % 0-1 [facility] Bilirubin [Mass/Vol] 0.30 mg/dL 0.20-1.00 [facility] Comment on above: For patients on eltr ombopag therapy, use of Dimension [place] TBIL is not recommended. Chloride [Moles/Vol] 98 mmol/L 98-107 [facility] Cholesterol [Mass/Vol] 102 mg/dL <200 [facility] Comment on above: <200 mg/dL Desirable 200-240 mg/dL Borderline >240 mg/dL High Risk Eosinophils/100 WBC (Bld) 2.7 % 0-5 [facility] Glucose [Mass/Vol] 95 mg/dL 74-106 [facility] Neutrophils (Bld) [#/Vol] 6.2 10*3/uL 2.0-7.7 [facility] Neutrophils/100 WBC (Bld) 62.2 % 47-70 [facility] Potassium [Moles/Vol] 4.3 mmol/L 3.5-5.1 [facility] Protein [Mass/Vol] 7.4 g/dL 6.4-8.2 [facility] Sodium [Moles/Vol] 130 mmol/L 136-145 [facility] Triglyceride [Mass/Vol] 130 mg/dL <199 [facility] Comment on above: The drugs N-Acetylcy steine and Metamizole may falsely depress this assay.Serum Triglycerides Reference Interval Normal <150 mg/dL Borderline high 150 - 199 mg/dL High 200 - 499 mg/dL Very High > or = 500 mg/dL WBC (Bld) [#/Vol] 9.9 10*3/uL 4.4-11.0 [facility] Blood erythrocytes count (nu mber/volume)Ordered By: Dean Felipe on 10-25-2022 RBC (Bld) [#/Vol] 4.98 10*6/uL 4.6-6.2 [facility] Blood hemoglobin measurement (mass/volume)Ordered By: Dean Felipe on 10-25-2022 Hemoglobin (Bld) [Mass/Vol] 14.7 g/dL 13.0-16.5 [facility] Blood lymphocytes/100 leukoc ytesOrdered By: Dean Felipe on 10-25-2022 Lymphocytes/100 WBC (Bld) 23.7 % 19-41 [facility] Blood monocytes/100 leukocyt esOrdered By: Dean Felipe on 10-25-2022 Monocytes/100 WBC (Bld) 10.5 % 0-10 [facility] Blood platelet mean volumeOr dered By: Dean Felipe on 10-25-2022 Platelet mean volume (Bld) [Entitic vol] 9.4 fL 6.2-12.0 [facility] Determination of erythrocyte mean corpuscular volume (MCV)Ordered By: Dean Felipe on 10-25-2022 MCV (RBC) [Entitic vol] 86.9 fL 80-94 [facility] Hematocrit Auto (Bld) [Volum e fraction]Ordered By: Dean Matteo on 10-25-2022 Hematocrit (Bld) [Volume fraction] 43.3 % 40-54 [facility] Laboratory - Chemistry and C hemistry - challengeOrdered By: Dean Felipe on 10-25-2022 ALP [Catalytic activity/Vol] 110 U/L 45-117 [facility] ALT [Catalytic activity/Vol] 27 U/L 16-61 [facility] CO2 [Moles/Vol] 26.0 mmol/L 21.0-32.0 [facility] Globulin (S) [Mass/Vol] 3.8 g/dL 2.2-4.2 [facility] Urea nitrogen/Creatinine [Mass ratio] 15.7 mg/mg 10-20 [facility] Laboratory - Hematology and Cell countsOrdered By: Dean Felipe on 10-25-2022 Erythrocyte distribution width (RBC) [Entitic vol] 38.0 fL 35.1-43.9 [facility] Erythrocyte distribution width (RBC) [Ratio] 11.9 % 11.6-14.6 [facility] Immature granulocytes/100 WBC (Bld) 0.200 % 0.0-0.9 [facility] Comment on above: IG% - Immature Granu locytes (promyelocytes, myelocytes and metamyelocytes) > 1% indicates that a LEFT SHIFT is Present. MCH (RBC) [Entitic mass] 29.5 pg 27.0-32.0 [facility] Nucleated RBC/100 WBC (Bld) [Ratio] 0 % 0-5 [facility] MCHC Auto (RBC) [Mass/Vol]Or dered By: Dean Felipe on 10-25-2022 MCHC (RBC) [Mass/Vol] 33.9 g/dL 32-36 [facility] No Panel InformationOrdered By: Dean Felipe on 10-25-2022 Estimated GFR (MDRD) Amer 101 mL/min >60 [facility] Comment on above: GFR Calc Estimated GFR (MDRD) Non-Af Amer 83 mL/min >60 [facility] Comment on above: Non- GFR Calc Thyroid Stimulating Hormone (TSH) 1.99 uIU/mL 0.358-3.74 [facility] Vitamin D 25-Hydroxy 84.5 ng/mL [facility] Comment on above: Vitamin D 25(OH) Sta tus Range Deficiency <20 ng/mL (50nmol/L) Insufficiency 20 - 30 ng/mL (50 - 75 nmol/L) Sufficiency 30 - 100 ng/mL (75 - 250 nmol/L) Toxicity >100 ng/mL (>250 nmol/L) Platelets bldOrdered By: Dean Felipe on 10-25-2022 Platelets (Bld) [#/Vol] 326 10*3/uL 150-450 [facility] Serum or plasma albumin jung urement (mass/volume)Ordered By: Dean Felipe on 10-25-2022 Albumin [Mass/Vol] 3.6 g/dL 3.2-5.0 [facility] Serum or plasma albumin/glob ulin mass ratioOrdered By: Dean Felipe on 10-25-2022 Albumin/Globulin [Mass ratio] 0.9 {ratio} 0.9-2.4 [facility] Serum or plasma calcium jung urement (mass/volume)Ordered By: Dean Felipe 10-25-2022 Calcium [Mass/Vol] 9.2 mg/dL 8.5-10.1 [facility] Serum or plasma cholesterol in HDL measurement (mass/volume)Ordered By: Dean Felipe on 10-25-2022 Cholesterol in HDL [Mass/Vol] 36 mg/dL >40 [facility] Comment on above: The drugs N-Acetylcy steine and Metamizole may falsely depress this assay. Reference Range HDL <40 mg/dL Low HDL Cholesterol HDL >or= 60 mg/dL High HDL Cholesterol Serum or plasma cholesterol in VLDL measurement (mass/volume)Ordered By: Dean Felipe on 10-25-2022 Cholesterol in VLDL [Mass/Vol] 26 mg/dL 5-40 [facility] Serum or plasma creatinine m easurement (mass/volume)Ordered By: Dean Felipe 10-25-2022 Creatinine [Mass/Vol] 0.96 mg/dL 0.70-1.30 [facility] Comment on above: The validity of the calculated GFR & GFRAA in patients over 70 years has not been determined. Clinical correlation is essential. Serum or plasma low density lipoprotein (LDL) cholesterol measurement (mass/volume)Ordered By: Dean Felipe on 10-25-2022 Cholesterol in LDL [Mass/Vol] 40 mg/dL 0-130 [facility] Serum or plasma urea nitroge n measurement (mass/volume)Ordered By: Dean Felipe on 10-25-2022 Urea nitrogen [Mass/Vol] 15 mg/dL 7-18 [facility] Thin prep Papanicolaou smear with manual screeningOrdered By: Dean Felipe on 10-25-2022 Thin prep Papanicolaou smear with manual screening 16 U/L 15-37 [facility] Thin prep Papanicolaou smear with manual screening 6 5-15 [facility] Whole blood hemoglobin A1c/t otal hemoglobin ratio (mass fraction)Ordered By: Dean Felipe on 10-25-2022 HbA1c (Bld) [Mass fraction] 6.0 % 3.8-5.6 [facility] Comment on above: Normal < 5.7 % Predi abetic 5.7 - 6.4 % Diabetic >or= 6.5 % Please note range changes. Absolute lymphocyte countOrd ered By: Dr. Feliciano on 05-25-2022 Lymphocytes Auto (Unsp spec) [#/Vol] 2.30 10*3/uL 0.83-4.51 [facility] Basophil percentageOrdered B y: Dr. Feliciano on 05-25-2022 Ammonia (P) [Moles/Vol] 19.0 umol/L 11-32 [facility] Basophil percentage 21.1 ug/mL 10.0-40.0 [facility] Basophils/100 WBC (Bld) 0.8 % 0-1 [facility] Bilirubin [Mass/Vol] 0.50 mg/dL 0.20-1.00 [facility] Comment on above: For patients on eltr ombopag therapy, use of Dimension [place] TBIL is not recommended. Chloride [Moles/Vol] 95 mmol/L 98-107 [facility] Eosinophils/100 WBC (Bld) 3.3 % 0-5 [facility] Glucose [Mass/Vol] 139 mg/dL 74-106 [facility] Comment on above: Fasting Glucose resu lt greater than or equal to 126 mg/dL suggests DIABETES MELLITUS per A.D.A. criteria. Neutrophils (Bld) [#/Vol] 6.3 10*3/uL 2.0-7.7 [facility] Neutrophils/100 WBC (Bld) 63.9 % 47-70 [facility] Potassium [Moles/Vol] 4.3 mmol/L 3.5-5.1 [facility] Protein [Mass/Vol] 7.3 g/dL 6.4-8.2 [facility] Sodium [Moles/Vol] 130 mmol/L 136-145 [facility] WBC (Bld) [#/Vol] 9.9 10*3/uL 4.4-11.0 [facility] Blood erythrocytes count (nu mber/volume)Ordered By: Dr. Feliciano on 05-25-2022 RBC (Bld) [#/Vol] 4.93 10*6/uL 4.6-6.2 [facility] Blood hemoglobin measurement (mass/volume)Ordered By: Dr. Feliciano on 05-25-2022 Hemoglobin (Bld) [Mass/Vol] 14.8 g/dL 13.0-16.5 [facility] Blood lymphocytes/100 leukoc ytesOrdered By: Dr. Feliciano on 05-25-2022 Lymphocytes/100 WBC (Bld) 23.3 % 19-41 [facility] Blood monocytes/100 leukocyt esOrdered By: Dr. Feliciano on 05-25-2022 Monocytes/100 WBC (Bld) 8.5 % 0-10 [facility] Blood platelet mean volumeOr dered By: Dr. Feliciano on 05-25-2022 Platelet mean volume (Bld) [Entitic vol] 8.8 fL 6.2-12.0 [facility] Determination of erythrocyte mean corpuscular volume (MCV)Ordered By: Dr. Feliciano on 05-25-2022 MCV (RBC) [Entitic vol] 85.0 fL 80-94 [facility] Hematocrit Auto (Bld) [Volum e fraction]Ordered By: Dr. Feliciano on 05-25-2022 Hematocrit (Bld) [Volume fraction] 41.9 % 40-54 [facility] Laboratory - Chemistry and C hemistry - challengeOrdered By: Dr. Feliciano on 05-25-2022 ALP [Catalytic activity/Vol] 97 U/L 45-117 [facility] ALT [Catalytic activity/Vol] 24 U/L 16-61 [facility] CO2 [Moles/Vol] 27.0 mmol/L 21.0-32.0 [facility] Globulin (S) [Mass/Vol] 3.4 g/dL 2.2-4.2 [facility] Urea nitrogen/Creatinine [Mass ratio] 13.9 mg/mg 10-20 [facility] Laboratory - Hematology and Cell countsOrdered By: Dr. Feliciano on 05-25-2022 Erythrocyte distribution width (RBC) [Entitic vol] 36.6 fL 35.1-43.9 [facility] Erythrocyte distribution width (RBC) [Ratio] 12.0 % 11.6-14.6 [facility] Immature granulocytes/100 WBC (Bld) 0.200 % 0.0-0.9 [facility] Comment on above: IG% - Immature Granu locytes (promyelocytes, myelocytes and metamyelocytes) > 1% indicates that a LEFT SHIFT is Present. MCH (RBC) [Entitic mass] 30.0 pg 27.0-32.0 [facility] Nucleated RBC/100 WBC (Bld) [Ratio] 0 % 0-5 [facility] MCHC Auto (RBC) [Mass/Vol]Or dered By: Dr. Feliciano on 05-25-2022 MCHC (RBC) [Mass/Vol] 35.3 g/dL 32-36 [facility] No Panel InformationOrdered By: Dr. Feliciano on 05-25-2022 Vitamin D 25-Hydroxy 63.8 ng/mL [facility] Comment on above: Vitamin D 25(OH) Sta tus Range Deficiency <20 ng/mL (50nmol/L) Insufficiency 20 - 30 ng/mL (50 - 75 nmol/L) Sufficiency 30 - 100 ng/mL (75 - 250 nmol/L) Toxicity >100 ng/mL (>250 nmol/L) Estimated GFR (MDRD) Amer 94 mL/min >60 [facility] Comment on above: GFR Calc Estimated GFR (MDRD) Non-Af Amer 78 mL/min >60 [facility] Comment on above: Non- GFR Calc Levetiracetam (Keppra) Level 17.9 ug/mL 10.0-40.0 [facility] Comment on above: Performed at: [facility] [address] [id number] Director: Vickey Romeo MD, Phone: [phone] Prostate Specific Antigen Screen 1.29 ng/mL 0.00-4.00 [facility] Comment on above: This test was perfor med using the TPSA assay method for [employer] chemistry system. Values obtained with differentassay methods cannot be used interchangably.When changing PSA assays in the course of monitoring apatient, additional sequential testing should be carriedout to confirm baseline values. Thyroid Stimulating Hormone (TSH) 3.12 uIU/mL 0.358-3.74 [facility] Platelets bldOrdered By: Dr. Feliciano on 05-25-2022 Platelets (Bld) [#/Vol] 326 10*3/uL 150-450 [facility] Serum or plasma albumin jung urement (mass/volume)Ordered By: Dr. Feliciano on 05-25-2022 Albumin [Mass/Vol] 3.9 g/dL 3.2-5.0 [facility] Serum or plasma albumin/glob ulin mass ratioOrdered By: Dr. Feliciano on 05-25-2022 Albumin/Globulin [Mass ratio] 1.1 {ratio} 0.9-2.4 [facility] Serum or plasma calcium jung urement (mass/volume)Ordered By: Dr. Feliciano on 05-25-2022 Calcium [Mass/Vol] 9.2 mg/dL 8.5-10.1 [facility] Serum or plasma creatinine m easurement (mass/volume)Ordered By: Dr. Feliciano on 05-25-2022 Creatinine [Mass/Vol] 1.01 mg/dL 0.70-1.30 [facility] Comment on above: The validity of the calculated GFR & GFRAA in patients over 70 years has not been determined. Clinical correlation is essential. Serum or plasma urea nitroge n measurement (mass/volume)Ordered By: Dr. Feliciano on 05-25-2022 Urea nitrogen [Mass/Vol] 14 mg/dL 7-18 [facility] Thin prep Papanicolaou smear with manual screeningOrdered By: Dr. Feliciano on 05-25-2022 Thin prep Papanicolaou smear with manual screening 19 U/L 15-37 [facility] Thin prep Papanicolaou smear with manual screening 8 5-15 [facility] Absolute lymphocyte counton 10-12-2021 Lymphocytes Auto (Unsp spec) [#/Vol] 2.74 10*3/uL 0.83-4.51 [facility] Work Phone: [phone] Basophil percentageon 2021 Basophils/100 WBC (Bld) 0.7 % 0-1 [facility] Work Phone: [phone] Bilirubin [Mass/Vol] 0.20 mg/dL 0.20-1.00 [facility] Work Phone: Comment on above: For patients on eltr ombopag therapy, use of Dimension [place] TBIL is not recommended. Chloride [Moles/Vol] 99 mmol/L 98-107 [facility] Work Phone: Eosinophils/100 WBC (Bld) 2.3 % 0-5 [facility] Work Phone: Glucose [Mass/Vol] 89 mg/dL 74-106 [facility] Work Phone: Neutrophils (Bld) [#/Vol] 6.1 10*3/uL 2.0-7.7 [facility] Work Phone: Neutrophils/100 WBC (Bld) 59.9 % 47-70 [facility] Work Phone: [phone] Potassium [Moles/Vol] 4.3 mmol/L 3.5-5.1 [facility] Work Phone: [phone] Protein [Mass/Vol] 7.3 g/dL 6.4-8.2 [facility] Work Phone: Sodium [Moles/Vol] 134 mmol/L 136-145 [facility] Work Phone: WBC (Bld) [#/Vol] 10.2 10*3/uL 4.4-11.0 [facility] Work Phone: Blood erythrocytes count (nu mber/volume)on 10-12-2021 RBC (Bld) [#/Vol] 5.21 10*6/uL 4.6-6.2 [facility] Work Phone: Blood hemoglobin measurement (mass/volume)on 10-12-2021 Hemoglobin (Bld) [Mass/Vol] 15.5 g/dL 13.0-16.5 [facility] Work Phone: Blood lymphocytes/100 leukoc yteson 10-12-2021 Lymphocytes/100 WBC (Bld) 26.9 % 19-41 [facility] Work Phone: Blood monocytes/100 leukocyt eson 10-12-2021 Monocytes/100 WBC (Bld) 9.8 % 0-10 [facility] Work Phone: Blood platelet mean volumeon 10-12-2021 Platelet mean volume (Bld) [Entitic vol] 9.2 fL 6.2-12.0 [facility] Work Phone: Determination of erythrocyte mean corpuscular volume (MCV)on 10-12-2021 MCV (RBC) [Entitic vol] 87.1 fL 80-94 [facility] Work Phone: Hematocrit Auto (Bld) [Volum e fraction]on 10-12-2021 Hematocrit (Bld) [Volume fraction] 45.4 % 40-54 [facility] Work Phone: Laboratory - Chemistry and C hemistry - challengeon 10-12-2021 ALP [Catalytic activity/Vol] 93 U/L 45-117 [facility] Work Phone: ALT [Catalytic activity/Vol] 34 U/L 16-61 [facility] Work Phone: CO2 [Moles/Vol] 26.0 mmol/L 21.0-32.0 [facility] Work Phone: Globulin (S) [Mass/Vol] 3.7 g/dL 2.2-4.2 [facility] Work Phone: Urea nitrogen/Creatinine [Mass ratio] 13.5 mg/mg 10-20 [facility] Work Phone: Laboratory - Hematology and Cell countson 10-12-2021 Erythrocyte distribution width (RBC) [Entitic vol] 39.1 fL 35.1-43.9 [facility] Work Phone: Erythrocyte distribution width (RBC) [Ratio] 12.2 % 11.6-14.6 [facility] Work Phone: Immature granulocytes/100 WBC (Bld) 0.400 % 0.0-0.9 [facility] Work Phone: Comment on above: IG% - Immature Granu locytes (promyelocytes, myelocytes and metamyelocytes) > 1% indicates that a LEFT SHIFT is Present. MCH (RBC) [Entitic mass] 29.8 pg 27.0-32.0 [facility] Work Phone: Nucleated RBC/100 WBC (Bld) [Ratio] 0 % 0-5 [facility] Work Phone: MCHC Auto (RBC) [Mass/Vol]on 10-12-2021 MCHC (RBC) [Mass/Vol] 34.1 g/dL 32-36 [facility] Work Phone: No Panel Informationon 10-12 Estimated GFR (MDRD) Amer 110 mL/min >60 [facility] Work Phone: Comment on above: GFR Calc Estimated GFR (MDRD) Non-Af Amer 91 mL/min >60 [facility] Work Phone: Comment on above: Non- GFR Calc Thyroid Stimulating Hormone (TSH) 2.51 uIU/mL 0.358-3.74 [facility] Work Phone: Vitamin D 25-Hydroxy 58.9 ng/mL [facility] Work Phone: Comment on above: Vitamin D 25(OH) Sta tus Range Deficiency <20 ng/mL (50nmol/L) Insufficiency 20 - 30 ng/mL (50 - 75 nmol/L) Sufficiency 30 - 100 ng/mL (75 - 250 nmol/L) Toxicity >100 ng/mL (>250 nmol/L) Platelets bldon 10-12-2021 Platelets (Bld) [#/Vol] 339 10*3/uL 150-450 [facility] Work Phone: Serum or plasma albumin jung urement (mass/volume)on 10-12-2021 Albumin [Mass/Vol] 3.6 g/dL 3.2-5.0 [facility] Work Phone: Serum or plasma albumin/glob ulin mass ratioon 10-12-2021 Albumin/Globulin [Mass ratio] 1.0 {ratio} 0.9-2.4 [facility] Work Phone: Serum or plasma calcium jung urement (mass/volume)on 10-12-2021 Calcium [Mass/Vol] 9.3 mg/dL 8.5-10.1 [facility] Work Phone: Serum or plasma creatinine m easurement (mass/volume)on 10-12-2021 Creatinine [Mass/Vol] 0.89 mg/dL 0.70-1.30 [facility] Work Phone: Comment on above: The validity of the calculated GFR & GFRAA in patients over 70 years has not been determined. Clinical correlation is essential. Serum or plasma urea nitroge n measurement (mass/volume)on 10-12-2021 Urea nitrogen [Mass/Vol] 12 mg/dL 7-18 [facility] Work Phone: Thin prep Papanicolaou smear with manual screeningon 10-12-2021 Thin prep Papanicolaou smear with manual screening 17 U/L 15-37 [facility] Work Phone: Thin prep Papanicolaou smear with manual screening 9 5-15 [facility] Work Phone: Basophil percentageon 2021 Ammonia (P) [Moles/Vol] 19.0 umol/L 11-32 [facility] Work Phone: Chloride [Moles/Vol] 99 mmol/L 98-107 [facility] Work Phone: Glucose [Mass/Vol] 131 mg/dL 74-106 [facility] Work Phone: Comment on above: Fasting Glucose resu lt greater than or equal to 126 mg/dL suggests DIABETES MELLITUS per A.D.A. criteria. Potassium [Moles/Vol] 4.3 mmol/L 3.5-5.1 [facility] Work Phone: Sodium [Moles/Vol] 134 mmol/L 136-145 [facility] Work Phone: Laboratory - Chemistry and C hemistry - challengeon 09-28-2021 CO2 [Moles/Vol] 30.0 mmol/L 21.0-32.0 [facility] Work Phone: Urea nitrogen/Creatinine [Mass ratio] 14.6 mg/mg 10-20 [facility] Work Phone: No Panel Informationon 09-28 Estimated GFR (MDRD) Amer 93 mL/min >60 [facility] Work Phone: Comment on above: GFR Calc Estimated GFR (MDRD) Non-Af Amer 76 mL/min >60 [facility] Work Phone: Comment on above: Non- GFR Calc Levetiracetam (Keppra) Level 15.9 ug/mL 10.0-40.0 [facility] Work Phone: Comment on above: Performed at: [address] [id number] Director: Vickey Romeo MD, Phone: [phone] Serum or plasma calcium jung urement (mass/volume)on 09-28-2021 Calcium [Mass/Vol] 9.3 mg/dL 8.5-10.1 [facility] Work Phone: Serum or plasma creatinine m easurement (mass/volume)on 09-28-2021 Creatinine [Mass/Vol] 1.03 mg/dL 0.70-1.30 [facility] Work Phone: Comment on above: The validity of the calculated GFR & GFRAA in patients over 70 years has not been determined. Clinical correlation is essential. Serum or plasma urea nitroge n measurement (mass/volume)on 09-28-2021 Urea nitrogen [Mass/Vol] 15 mg/dL 7-18 [facility] Work Phone: Thin prep Papanicolaou smear with manual screeningon 09-28-2021 Thin prep Papanicolaou smear with manual screening 5 5-15 [facility] Work Phone: Basophil percentageon 2021 Ammonia (P) [Moles/Vol] 16.0 umol/L 11-32 [facility] Work Phone: Chloride [Moles/Vol] 97 mmol/L 98-107 [facility] Work Phone: Glucose [Mass/Vol] 126 mg/dL 74-106 [facility] Work Phone: Comment on above: Fasting Glucose resu lt greater than or equal to 126 mg/dL suggests DIABETES MELLITUS per A.D.A. criteria. Potassium [Moles/Vol] 4.0 mmol/L 3.5-5.1 [facility] Work Phone: Sodium [Moles/Vol] 133 mmol/L 136-145 [facility] Work Phone: Laboratory - Chemistry and C hemistry - challengeon 07-13-2021 CO2 [Moles/Vol] 28.0 mmol/L 21.0-32.0 [facility] Work Phone: Cobalamin (Vitamin B12) [Mass/Vol] 645 pg/mL 211-911 [facility] Work Phone: Urea nitrogen/Creatinine [Mass ratio] 11.7 mg/mg 10-20 [facility] Work Phone: No Panel Informationon 07-13 Estimated GFR (MDRD) Amer 102 mL/min >60 [facility] Work Phone: Comment on above: GFR Calc Estimated GFR (MDRD) Non-Af Amer 85 mL/min >60 [facility] Work Phone: Comment on above: Non- GFR Calc Levetiracetam (Keppra) Level 8.8 ug/mL 10.0-40.0 [facility] Work Phone: Comment on above: Performed at: - [address] [id number] Director: Vickey Romeo MD, Phone: [phone] Phenobarbital Level 16.2 ug/mL 10.0-40.0 [facility] Work Phone: Vitamin D 25-Hydroxy 66.8 ng/mL [facility] Work Phone: Comment on above: Vitamin D 25(OH) Sta tus Range Deficiency <20 ng/mL (50nmol/L) Insufficiency 20 - 30 ng/mL (50 - 75 nmol/L) Sufficiency 30 - 100 ng/mL (75 - 250 nmol/L) Toxicity >100 ng/mL (>250 nmol/L) Serum or plasma calcium jung urement (mass/volume)on 07-13-2021 Calcium [Mass/Vol] 8.7 mg/dL 8.5-10.1 [facility] Work Phone: Serum or plasma creatinine m easurement (mass/volume)on 07-13-2021 Creatinine [Mass/Vol] 0.94 mg/dL 0.70-1.30 [facility] Work Phone: Comment on above: The validity of the calculated GFR & GFRAA in patients over 70 years has not been determined. Clinical correlation is essential. Serum or plasma urea nitroge n measurement (mass/volume)on 07-13-2021 Urea nitrogen [Mass/Vol] 11 mg/dL 7-18 [facility] Work Phone: Thin prep Papanicolaou smear with manual screeningon 07-13-2021 Thin prep Papanicolaou smear with manual screening 8 5-15 [facility] Work Phone: Absolute lymphocyte counton 04-13-2021 Lymphocytes Auto (Unsp spec) [#/Vol] 2.41 10*3/uL 0.83-4.51 [facility] Work Phone: Basophil percentageon 2021 Basophils/100 WBC (Bld) 0.6 % 0-1 [facility] Work Phone: Bilirubin [Mass/Vol] 0.40 mg/dL 0.20-1.00 [facility] Work Phone: Comment on above: For patients on eltr ombopag therapy, use of Dimension [place] TBIL is not recommended. Chloride [Moles/Vol] 98 mmol/L 98-107 [facility] Work Phone: Eosinophils/100 WBC (Bld) 1.8 % 0-5 [facility] Work Phone: Glucose [Mass/Vol] 81 mg/dL 74-106 [facility] Work Phone: [phone] Neutrophils (Bld) [#/Vol] 8.7 10*3/uL 2.0-7.7 [facility] Work Phone: [phone] Neutrophils/100 WBC (Bld) 69.2 % 47-70 [facility] Work Phone: Potassium [Moles/Vol] 4.4 mmol/L 3.5-5.1 [facility] Work Phone: Protein [Mass/Vol] 7.4 g/dL 6.4-8.2 [facility] Work Phone: Sodium [Moles/Vol] 131 mmol/L 136-145 [facility] Work Phone: WBC (Bld) [#/Vol] 12.5 10*3/uL 4.4-11.0 [facility] Work Phone: Blood erythrocytes count (nu mber/volume)on 04-13-2021 RBC (Bld) [#/Vol] 5.20 10*6/uL 4.6-6.2 [facility] Work Phone: Blood hemoglobin measurement (mass/volume)on 04-13-2021 Hemoglobin (Bld) [Mass/Vol] 15.2 g/dL 13.0-16.5 [facility] Work Phone: Blood lymphocytes/100 leukoc yteson 04-13-2021 Lymphocytes/100 WBC (Bld) 19.2 % 19-41 [facility] Work Phone: Blood monocytes/100 leukocyt eson 04-13-2021 Monocytes/100 WBC (Bld) 8.9 % 0-10 [facility] Work Phone: Blood platelet mean volumeon 04-13-2021 Platelet mean volume (Bld) [Entitic vol] 9.1 fL 6.2-12.0 [facility] Work Phone: Determination of erythrocyte mean corpuscular volume (MCV)on 04-13-2021 MCV (RBC) [Entitic vol] 84.2 fL 80-94 [facility] Work Phone: Hematocrit Auto (Bld) [Volum e fraction]on 04-13-2021 Hematocrit (Bld) [Volume fraction] 43.8 % 40-54 [facility] Work Phone: Laboratory - Chemistry and C hemistry - challengeon 04-13-2021 ALP [Catalytic activity/Vol] 107 U/L 45-117 [facility] Work Phone: ALT [Catalytic activity/Vol] 29 U/L 16-61 [facility] Work Phone: CO2 [Moles/Vol] 24.0 mmol/L 21.0-32.0 [facility] Work Phone: Globulin (S) [Mass/Vol] 3.8 g/dL 2.2-4.2 [facility] Work Phone: Urea nitrogen/Creatinine [Mass ratio] 13.2 mg/mg 10-20 [facility] Work Phone: Laboratory - Hematology and Cell countson 04-13-2021 Erythrocyte distribution width (RBC) [Entitic vol] 36.4 fL 35.1-43.9 [facility] Work Phone: Erythrocyte distribution width (RBC) [Ratio] 12.0 % 11.6-14.6 [facility] Work Phone: Immature granulocytes/100 WBC (Bld) 0.300 % 0.0-0.9 [facility] Work Phone: Comment on above: IG% - Immature Granu locytes (promyelocytes, myelocytes and metamyelocytes) > 1% indicates that a LEFT SHIFT is Present. MCH (RBC) [Entitic mass] 29.2 pg 27.0-32.0 [facility] Work Phone: Nucleated RBC/100 WBC (Bld) [Ratio] 0 % 0-5 [facility] Work Phone: MCHC Auto (RBC) [Mass/Vol]on 04-13-2021 MCHC (RBC) [Mass/Vol] 34.7 g/dL 32-36 [facility] Work Phone: No Panel Informationon 04-13 Estimated GFR (MDRD) Amer 107 mL/min >60 [facility] Work Phone: Comment on above: GFR Calc Estimated GFR (MDRD) Non-Af Amer 89 mL/min >60 [facility] Work Phone: Comment on above: Non- GFR Calc Prostate Specific Antigen Screen 0.80 ng/mL 0.00-4.00 [facility] Work Phone: Comment on above: This test was perfor med using the TPSA assay method for the[employer] chemistry system. Values obtained with differentassay methods cannot be used interchangably.When changing PSA assays in the course of monitoring apatient, additional sequential testing should be carriedout to confirm baseline values. Thyroid Stimulating Hormone (TSH) 2.58 uIU/mL 0.358-3.74 [facility] Work Phone: Vitamin D 25-Hydroxy 64.2 ng/mL [facility] Work Phone: Comment on above: Vitamin D 25(OH) Sta tus Range Deficiency <20 ng/mL (50nmol/L) Insufficiency 20 - 30 ng/mL (50 - 75 nmol/L) Sufficiency 30 - 100 ng/mL (75 - 250 nmol/L) Toxicity >100 ng/mL (>250 nmol/L) Platelets bldon 04-13-2021 Platelets (Bld) [#/Vol] 328 10*3/uL 150-450 [facility] Work Phone: Serum or plasma albumin jung urement (mass/volume)on 04-13-2021 Albumin [Mass/Vol] 3.6 g/dL 3.2-5.0 [facility] Work Phone: Serum or plasma albumin/glob ulin mass ratioon 04-13-2021 Albumin/Globulin [Mass ratio] 0.9 {ratio} 0.9-2.4 [facility] Work Phone: Serum or plasma calcium jung urement (mass/volume)on 04-13-2021 Calcium [Mass/Vol] 9.2 mg/dL 8.5-10.1 [facility] Work Phone: Serum or plasma creatinine m easurement (mass/volume)on 04-13-2021 Creatinine [Mass/Vol] 0.91 mg/dL 0.70-1.30 [facility] Work Phone: Comment on above: The validity of the calculated GFR & GFRAA in patients over 70 years has not been determined. Clinical correlation is essential. Serum or plasma urea nitroge n measurement (mass/volume)on 04-13-2021 Urea nitrogen [Mass/Vol] 12 mg/dL 7-18 [facility] Work Phone: Thin prep Papanicolaou smear with manual screeningon 04-13-2021 Thin prep Papanicolaou smear with manual screening 15 U/L 15- [facility] Work Phone: Thin prep Papanicolaou smear with manual screening 9 5-15 [facility] Work Phone: Vital Signs Date Time Vital Sign Value Performing Clinician Faci lity 11-26-2024 10:53-0400 Diastolic blood pressure 80 mm[Hg] Eddi Lynn MD Work Phone: [facility] 11-26-2024 10:53-0400 Heart rate 93 /min Eddi Lynn MD Work Phone: [facility] 11-26-2024 10:53-0400 Systolic blood pressure 170 mm[Hg] Eddi Lynn MD Work Phone: [facility] 11-26-2024 10:30-0400 Body height 172.72 cm Eddi Lynn MD Work Phone: [facility] 11-26-2024 10:30-0400 Body mass index (BMI) [Ratio] 34 kg/m2 Eddi Lynn MD Work Phone: [facility] 11-26-2024 10:30-0400 Body temperature 97.8 [degF] Eddi Lynn MD Work Phone: [facility] 11-26-2024 10:30-0400 Body weight 101.6 kg Eddi Lynn MD Work Phone: [facility] 11-26-2024 10:30-0400 Respiratory rate 15 /min Eddi Lynn MD Work Phone: [facility] 11-26-2024 10:30-0400 SaO2% (BldA) [Mass fraction] 97 % Eddi Lynn MD Work Phone: [facility] 05-28-2024 09:15-0500 Body height 172.[address] Dean Felipe MD Work Phone: [facility] 05-28-2024 09:15-0500 Body mass index (BMI) [Ratio] 34.7 kg/m2 Dr. Dean Felipe MD Work Phone: [facility] 05-28-2024 09:15-0500 Body temperature 98.4 [degF] Dr. Dean Felipe MD Work Phone: [facility] 05-28-2024 09:15-0500 Body weight 103.[address] Dean Felipe MD Work Phone: [facility] 05-28-2024 09:15-0500 Diastolic blood pressure 86 mm[Hg] Dr. Dean Felipe MD Work Phone: [facility] 05-28-2024 09:15-0500 Heart rate 86 /min Dr. Dean Felipe MD Work Phone: [facility] 05-28-2024 09:15-0500 Respiratory rate 16 /min Dr. Dean Felipe MD Work Phone: [facility] 05-28-2024 09:15-0500 SaO2% (BldA) [Mass fraction] 96 % Dr. Dean Felipe MD Work Phone: [facility] 05-28-2024 09:15-0500 Systolic blood pressure 144 mm[Hg] Dr. Dean Felipe MD Work Phone: [facility] 05-22-2024 20:02-0500 Body temperature 97.6 [degF] Dr. Dean Felipe MD Work Phone: [facility] 05-22-2024 20:02-0500 Diastolic blood pressure 90 mm[Hg] Dr. Dean Felipe MD Work Phone: [facility] 02-27-2025 20:02-0500 Heart rate 82 /min Dr. Dean Felipe MD Work Phone: [facility] 05-22-2024 20:02-0500 Respiratory rate 18 /min Dr. Dean Felipe MD Work Phone: [facility] 05-22-2024 20:02-0500 SaO2% (BldA) [Mass fraction] 96 % Dr. Dean Felipe MD Work Phone: [phone] [place] [address] 05-22-2024 20:02-0500 Systolic blood pressure 175 mm[Hg] Dr. Dean Felipe MD Work Phone: 4(247)910-132095 [address] 05-22-2024 19:23-0500 Body mass index (BMI) [Ratio] 35.2 kg/m2 Dr. Dean Felipe MD Work Phone: 0(495)[phone] [place] [address] 05-22-2024 19:23-0500 Body weight 105.[address] Dean Felipe MD Work Phone: 3(076)919-681695 [address] 05-30-2023 09:30-0500 Body temperature 97.3 [degF] Dr. Dean Felipe Work Phone: 4(054)[phone] [address] 05-30-2023 09:30-0500 Body weight 98.[address] Dean Felipe Work Phone: 5(893)888-684655 [place] [address] 05-30-2023 09:30-0500 Diastolic blood pressure 90 mm[Hg] Dr. Dean Felipe Work Phone: 3(898)405-486655 [place] [address] 05-30-2023 09:30-0500 Heart rate 67 /min Dr. Dean Felipe Work Phone: [facility] 05-30-2023 09:30-0500 Respiratory rate 13 /min Dr. Dean Felipe Work Phone: 7(104)[phone] [place] [address] 05-30-2023 09:30-0500 SaO2% (BldA) [Mass fraction] 99 % Dr. Dean Felipe Work Phone: [facility] 05-30-2023 09:30-0500 Systolic blood pressure 140 mm[Hg] Dr. Dean Felipe Work Phone: [facility] 11-28-2022 08:35-0400 Body height 172.[address] Dean Felipe Work Phone: [facility] 11-28-2022 08:35-0400 Body mass index (BMI) [Ratio] 32.5 kg/m2 Dr. Dean Felipe Work Phone: [facility] 11-28-2022 08:35-0400 Body temperature 97.8 [degF] Dr. Dean Felipe Work Phone: [facility] 11-28-2022 08:35-0400 Body weight 97.[address] Dean Felipe Work Phone: 5(543)708-681695 [address] 11-28-2022 08:35-0400 Diastolic blood pressure 90 mm[Hg] Dr. Dean Felipe Work Phone: 6(264)[phone] [address] 11-28-2022 08:35-0400 Heart rate 80 /min Dr. Dean Felipe Work Phone: [facility] 11-28-2022 08:35-0400 Respiratory rate 17 /min Dr. Dean Felipe Work Phone: [facility] 11-28-2022 08:35-0400 Systolic blood pressure 148 mm[Hg] Dr. Dean Felipe Work Phone: 5(339)381-087955 [place] [address] 11-05-2022 09:48-0400 SaO2% (BldA) [Mass fraction] 94 % Dr. Dean Felipe Work Phone: [facility] 11-05-2022 09:38-0400 Body temperature 97.8 [degF] Dr. Dean Felipe Work Phone: [facility] 11-05-2022 09:38-0400 Diastolic blood pressure 83 mm[Hg] Dr. Dean Felipe Work Phone: [facility] 11-05-2022 09:38-0400 Heart rate 80 /min Dr. Dean Felipe Work Phone: [facility] 11-05-2022 09:38-0400 Respiratory rate 16 /min Dr. Dean Felipe Work Phone: [facility] 11-05-2022 09:38-0400 Systolic blood pressure 161 mm[Hg] Dr. Dean Felipe Work Phone: [facility] 11-05-2022 07:59-0400 Inhaled oxygen flow rate 2 L/min Dr. Dean Felipe Work Phone: [facility] 11-04-2022 09:14-0400 Body temperature 98.4 [degF] Dr. Dean Felipe Work Phone: [facility] 11-04-2022 09:14-0400 Diastolic blood pressure 75 mm[Hg] Dr. Dean Felipe Work Phone: [facility] 11-04-2022 09:14-0400 Heart rate 86 /min Dr. eDan Felipe Work Phone: [facility] 11-04-2022 09:14-0400 Inhaled oxygen flow rate 2 L/min Dr. Dean Felipe Work Phone: [facility] 11-04-2022 09:14-0400 Respiratory rate 18 /min Dr. Dean Felipe Work Phone: [facility] 11-04-2022 09:14-0400 SaO2% (BldA) [Mass fraction] 98 % Dr. Dean Felipe Work Phone: [facility] 11-04-2022 09:14-0400 Systolic blood pressure 160 mm[Hg] Dr. Dean Felipe Work Phone: [facility] 11-04-2022 07:10-0400 Body height 172.[address] Dean Felipe Work Phone: [facility] 11-04-2022 07:10-0400 Body mass index (BMI) [Ratio] 33.2 kg/m2 Dr. Dean Felipe Work Phone: [facility] 11-04-2022 07:10-0400 Body weight 99.[address] Dean Felipe Work Phone: [facility] 07-27-2021 13:39-0400 Body temperature 97.8 [degF] Dr. Dean Felipe Work Phone: [facility] Work Phone: 07-27-2021 13:39-0400 Body weight 102.[address] Dean Felipe Work Phone: [facility] Work Phone: 07-27-2021 13:39-0400 Diastolic blood pressure 87 mm[Hg] Dr. Dean Felipe Work Phone: [facility] Work Phone: 07-27-2021 13:39-0400 Heart rate 91 /min Dr. Dean Felipe Work Phone: [facility] Work Phone: 07-27-2021 13:39-0400 Respiratory rate 18 /min Dr. Dean Felipe Work Phone: [facility] Work Phone: 07-27-2021 13:39-0400 SaO2% (BldA) [Mass fraction] 98 % Dr. Dean Felipe Work Phone: [facility] Work Phone: 07-27-2021 13:39-0400 Systolic blood pressure 153 mm[Hg] Dr. Dean Felipe Work Phone: [facility] Work Phone: Encounters Encounter Date Encounter Type Care Provider Facility Start: 11-26-2024 End: 11-26-[address] Vini Feliciano MD -[facility] Work Phone: Start: 11-26-2024 End: 11-26-2024 ambulatory Eddi Lynn MD Work Phone: -[facility] Start: 10-15-2024 End: 10-15-2024 ambulatory Eddi Lynn MD Work Phone: -[facility] Start: 10-15-2024 End: 10-15-2024 Patient encounter procedure Aydeebrenna Willams NP-C -[facility] [place] Work Phone: Start: 10-15-2024 End: 10-15-2024 ambulatory [facility] Facility:[facility] Start: 07-15-2024 End: 07-15-[address] Eddi Lynn MD -[facility] [place] Work Phone: Start: 07-15-2024 End: 07-15-2024 ambulatory [facility] Facility:[facility] Start: 06-18-2024 End: 06-18-[address] Dean Felipe MD Work Phone: [facility] Work Phone: Start: 06-18-2024 End: 06-18-[address] Vini Feliciano MD -Laboratory, [place] Work Phone: Start: 06-18-2024 End: 06-18-2024 ambulatory Vini Feliciano Facility:[facility] Start: 05-29-2024 End: 05-29-[address] Dean Felipe MD Work Phone: [facility] Work Phone: Start: 05-29-2024 End: 05-29-[address] Eddi Lynn MD -Radiology, [place] Work Phone: Start: 05-28-2024 End: 05-28-[address] Vini Feliciano MD -[facility] Work Phone: Start: 05-28-2024 End: 05-29-2024 ambulatory [facility] Facility:[facility] Start: 05-22-2024 End: 05-22-2024 Emergency department patient visit Dr. Chet Grover MD -Emergency Department Work Phone: Start: 01-08-2024 End: 01-08-2024 ambulatory [facility] Facility:[facility] Start: 12-05-2023 End: 12-05-2023 ambulatory Eddi Lynn Facility:[facility] Start: 06-12-2023 End: 06-12-[address] Dean Felipe Work Phone: [facility] Work Phone: Start: 06-12-2023 End: 06-12-[address] [facility] Start: 05-30-2023 End: 05-30-[address] Dean Felipe Work Phone: [facility] Work Phone: Start: 05-01-2023 End: 05-01-2023 ambulatory [facility] Work Phone: Start: 05-01-2023 End: 05-01-2023 Patient encounter procedure [facility]-Laboratory, Phy Office 3rd Car Start: 12-19-2022 End: 12-19-[address] Daen Felipe Work Phone: [facility] Work Phone: Start: 12-19-2022 End: 12-19-[address] [facility] Start: 11-28-2022 End: 11-28-[address] Dean Felipe Work Phone: [facility] Work Phone: Start: 11-05-2022 Non-patient / Non-visit Dr. Feng Felipe Work Phone: [facility] Work Phone: Start: 11-04-2022 Non-patient / Non-visit Dr. Feng Felipe Work Phone: [facility] Work Phone: Start: 11-04-2022 End: 11-04-2022 Evaluation and management of inpatient Dr. Dean Felipe [facility]: Start: 10-25-2022 End: 10-25-2022 ambulatory [facility] Work Phone: Start: 10-25-2022 End: 10-25-2022 Patient encounter procedure [facility] Office 3rd Flr Start: 05-25-2022 End: 05-25-2022 ambulatory [facility] Work Phone: Start: 05-25-2022 End: 05-25-2022 Patient encounter procedure [facility] Start: 10-12-2021 End: 10-12-[address] Dean Felipe Work Phone: [facility] Office 3rd Flr Start: 09-28-2021 End: 09-28-[address] Daen Felipe Work Phone: [facility] Start: 07-27-2021 End: 07-27-[address] Dean Felipe Work Phone: [facility] Start: 07-13-2021 End: 07-13-2021 Patient encounter procedure [facility] Start: 04-13-2021 End: 04-13-2021 Patient encounter procedure [facility] 3rd Flr Procedures Date Procedure Procedure Detail Performing Clinician Start: 10-15-2024 Urnls dip stick/tabl et reagent auto microscopy Eddi Lynn MD Work Phone: Start: 05-29-2024 Plain x-ray of pelvi s and lower extremity Dr. Dean Felipe MD Work Phone: Start: 11-04-[address] Dean Felipe Work Phone: Start: 11-04-2022 Plain chest X-ray Dr. T ai Matteo Work Phone: Plan of Treatment Date Care Activity Detail Author Start: 05-22-2024 [facility] Start: 11-05-2022 Patient discharge [facility] Start: 11-04-2022 Following clinical p athway protocol [facility] Start: 11-04-2022 Airborne precautions [facility] Start: 11-04-2022 Assessment of risk o f venous thromboembolism [facility] Start: 11-04-2022 Care regimes management [facility] Start: 11-04-2022 Catheterization of vein [facility] Start: 11-04-2022 Inhalation therapy procedure [facility] Start: 11-04-2022 Insertion of cathete r into peripheral vein [facility] Start: 11-04-2022 Notification of physician [facility] Start: 11-04-2022 Oxygen therapy [facility] Start: 11-04-2022 Providing care accor ding to standard [facility] Start: 11-04-2022 Provision of activit y privileges [facility] Start: 11-04-2022 Referral to occupati onal therapist [facility] Start: 11-04-2022 Referral to service [facility] Start: 11-04-2022 [facility] Start: 11-04-2022 Urinalysis complete panel - Urine [facility] Start: 11-04-2022 Admission procedure [facility] Start: 11-04-2022 [facility] Start: 11-04-2022 [facility] Start: 09-28-2021 Measurement of substance [facility] Work Phone: Blood ammonia measurement [facility] Complete blood count [facility] Comprehensive metabo lic 2000 panel - Serum or Plasma [facility] Measurement of substance [facility] Work Phone: Measurement of substance [facility] Patient Education ED Back and Ne ck Pain, General [facility] Work Phone: Patient referral [facility] Work Phone: Phenobarbital measurement [facility] Payers Date Payer Category Payer Self-pay [id number] 2023 Medicaid [id number] 2023 Medicare [id number] Unknown [id number] 2.16.8 [id number] Unknown [id number] 2.16.8 [id number] Unknown [id number] 2.16.8 [id number] Unknown [id number] 2.16.8 [id number] Unknown [id number] 2.16.8 [id number] Unknown [id number] 2.16.8 [id number] Unknown [id number] 2.16.8 [id number] Unknown [id number] 2.16.8 [id number] Unknown [id number] 2.16.8 [id number] Social History Date Type Detail Facility Start: 02-01-2021 End: 05-30-2023 Tobacco smoking status NHIS Unknown if ever smoked [facility] Start: 1955 Sex Assigned At Male [facility] Start: 05-22-2024 Tobacco smoking stat us CTIS Never smoked tobacco (finding) [facility] Start: 06-09-2024 End: 06-22-2024 Sex Male (finding) [facility] Functional Status Date Assessment Result Facility 11-04-2022 Functional status Chair [facility] Work Phone: Mental Status Date Assessment Result Facility 11-05-2022 Cognitive function Voice/Name [facility] Work Phone: 11-04-2022 Cognitive function Cooperative [facility] Work Phone: Clinical Notes 11-04-2022 to 05-29-2024 Note Date & Type Note Facility 05-29-2024 Radiology Diagnostic study note [facility] Imaging Services [address] [place] [address] HIP, UNI W/ Pelvis 2-3 Views MR#: [id number] Acct: [id number] Name: NAYLA BENNETT Rep #: [id number] : 1955 M 69 From: Iván Thompson MD PCP: Dr. Eddi Lynn MD Status: REG CL I Study:HIP, UNI W/ Pelvis 2-3 Views Date of Ex am: 05/29/24 Exam# [id number] Ordering Dr: Beckie Lynn MD PROCEDURE: HIP, UNI W/ PELVIS 2-3 VIEWS REASON FOR EXAM: Pain following recent fall. TECHNIQUE: Three views were obtained. COMPARISON: None. FINDINGS: No fracture. No suspicious bone lesion. Normal alignment. Calcified phleboliths are seen in the pelvis. 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 RAD/HIP, UNI W/ Pelvis 2-3 Views IMPRESSION: Degenerative changes. Reading Location: [id number] CC: Dr. Eddi Lynn MD ~ Run Lead: Signed [facility] 05-28-2024 Evaluation note Diagnosis Onset Date Resolution Epilepsy, unspecified, not intractable, without status epilepticus chronic May 28 9:16am Vitamin B12 deficiency resolved [facility] 2024 9:16am Vitamin D insufficiency resolved [facility] 2024 9:16am [facility] Work Phone: 1(541) 663-318808-12-2023 Discharge summary Author Jefferson Lazar [facility] November 04, 2022 9:25am Note Date/Time November 04, 2022 7: 21am [facility] Medical Records Department [address] [place] [address] Emergency Department Summary 11/04/22 MR#: [id number] Acct: [id number] Name: NAYLA BENNETT Rep #:[id number] : 1955 67 From: Jefferson Lazar MD PCP: Dr. Dean Felipe MD Status:REG E R Location: ED HPI HPI - Fall History of Present Illness Chief Complaint: Fall Informant: EMS Narrative Narrative: [facility] resident who recently tested positive for COVID who had a minor fall this morning according to EMS, and was weak getting up to his feet and so EMS was called for transport to the hospital and further evaluation. There were no other details given. EMS states that he did not seem injured to them, and although he was a little unsteady on his feet [facility] He is autistic and nonverbal at baseline according to their report. Patient is nonverbal and does not indicate anything in particular, but is cooperative with us. No history available from the patient. No report was given from the custodial staff, our nurses called to discuss details. Apparently someone checked on him around 4 AM and he was still in bed sleeping and at 5 AM, he was sitting on the floor like he had fallen next to hisbed. They were able to get him up but it was more difficult than usual possiblydue to being weak. At baseline mental status which is nonverbal but usually cooperative. Staff later added that he was just started on Paxlovid yesterday. [facility] Medical History Developmental non-verbal disorder Diabetes mellitus, type II Epilepsy, unspecified, not intractable, without status epilepticus HTN (hypertension) Hyperlipidemia Schizophrenia Seizure disorder Vitamin B12 deficiency Home Medications loratadine 10 mg tablet 10 mg PO DAILY 07/16/16 [History Last Taken Unknown] omega 5-fil-olj-fish oil 300 mg-1,000 mg capsule 1 ea PO BID 07/16/16 [History Last Taken Unknown] risperidone 3 mg tablet 3 mg PO QHS 07/16/16 [History Last Taken Unknown] atorvastatin 40 mg tablet 40 mg PO QHS 11/27/19 [History Last Taken Unknown] metformin 1,000 mg tablet 1,000 mg PO BID 11/27/19 [History Last Taken Unknown] chlorhexidine gluconate 0.12 % mouthwash 15 ml buccal DAILY 12/02/19 [History Last Taken Unknown] fluticasone propionate 50 mcg/actuation nasal spray,suspension 1 spray intranasal DAILY 12/02/19 [History Last Taken Unknown] levothyroxine 50 mcg capsule 50 mcg PO DAILY 12/02/19 [History Last Taken Unknown] multivitamin 1 tab PO DAILY 12/02/19 [History Last Taken Unknown] polyethylene glycol 3350 17 gram oral powder packet 17 g PO BID 12/02/19 [History Last Taken Unknown] tamsulosin 0.4 mg capsule 0.4 mg PO DAILY 12/02/19 [History Last Taken Unknown] lisinopril 2.5 mg tablet 2.5 mg PO DAILY 08/03/20 [History Last Taken Unknown] cholecalciferol (vitamin D3) 1,250 mcg (50,000 unit) capsule 1,250 mcg PO QMONTH#3 caps 06/01/22 [Rx Last Taken Unknown] levetiracetam 1,000 mg tablet 1,000 mg PO BID #60 tabs 06/01/22 [Rx Last Taken Unknown] mecobalamin (vitamin B12) 1,000 mcg chewable tablet (B12 Active) 1,000 mcg PO DAILY #30 tabs 06/01/22 [Rx Last Taken Unknown] phenobarbital 60 mg tablet 120 mg (2 x 60 mg) PO QHS #60 tabs 06/01/22 [Rx Last Taken Unknown] Allergy/AdvReac Type Severity Reaction Status Date / Time No Known Allergies Allergy Verified 11/04/22 07:13 Family History unable to obtain Surgical History (Updated 06/01/22 @ 12:57 by Amna Kapadia) No history of previous surgery Surgical History unable to obtain Social History (Updated 11/04/22 @ 08:[address] Alice Mckeon, DO) housing: other details: [facility] Smoking Status: Never smoker Electronic Cigarette Use: not used second hand exposure: No alcohol intake: never substance use type: does not use seatbelt use: always ROS ROS ED Review of Systems ROS Unobtainable: due to mental condition EXAM Physical Exam Const Vital Signs: 11/04/22 07:10 11/04/22 07:33 11/04/22 07:33 Temperature 97 F L Temperature Source Temporal Pulse Rate 98 Respiratory Rate 25 H Blood Pressure 165/65 H Blood Pressure Mean 98 Pulse Ox 92 92 Oxygen Delivery Method Room Air Room Air Room Air Oxygen Flow Rate (L/min) 11/04/22 08:00 11/04/22 08:03 11/04/22 08:35 Temperature Temperature Source Pulse Rate Respiratory Rate 18 Blood Pressure Blood Pressure Mean Pulse Ox 88 96 96 Oxygen Delivery Method Room Air Nasal Cannula Nasal Cannula Oxygen Flow Rate (L/min) 2 2 11/04/22 09:14 Temperature 98.4 F Temperature Source Temporal Pulse Rate 86 Respiratory Rate 18 Blood Pressure 160/75 H Blood Pressure Mean 103 Pulse Ox 98 Oxygen Delivery Method Nasal Cannula Oxygen Flow Rate (L/min) 2 Positive well nourished and well developed General Appearance ED: well developed and NAD HEENT Reports TM's clear and nasal mucous membranes and turbinates normal atraumatic Face and Sinus: Negative for facial tenderness Tympanic Membrane ED: Yes TM's clear Eyes PERRL and EOMs intact bilaterally Visual Acuity: other Other Details: no entrapment or pain with extraocular movements Neck full ROM and supple General: Negative for tenderness Chest Wall inspection of chest normal and palpation of chest normal Chest: symmetrical chest wall rise; Negative for crepitus or tenderness Resp normal respiratory effort and clear to auscultation bilaterally Percussion: other equal BS bilat Cardio no murmurs Rate: regular rate; Negative for tachycardic Rhythm: regular rhythm GI normal to inspection, nondistended, normoactive bowel sounds, soft to palpation and non-tender Back/Spine normal ROM Cervical Spine: Negative for cervical spine tenderness Thoracic Spine / Upper Back: Negative for thoracic spinal tenderness Lumbar Spine / Lower Back: Negative for lumbar spinal tenderness Extremity normal to inspection and full ROM General Extremety ED: Negative for tenderness Neuro CN's II-XII intact bilaterally, moves all extremities, no focal motor deficits and no sensory deficits noted Rohit Coma Scale: document GCS findings (within limits of exam given that pt is nonverbal; at baseline per EMS, per custodial staff) Spontaneous Obeys Commands Oriented 15 Sensorium / Orientation: awake and alert Skin no wounds Skin Narrative: abrasion left elbow olecranon, nontender Lesions: no lesions Rashes: no rashes MDM MDM MDM Narrative Medical decision making narrative: Nurses and I were able to get him to get out of bed with assistance and stand without any difficulty. He was able to take steps in place and does not appear to be in any pain. He is moving all 4 extremities equally, he has no signs of any head trauma and I do not think he needs to be x-rayed or CT'd in order to rule out any significant injury. My concern is that he has COVID, and precautions were taken, but he is borderline hypoxemic 90-92% on room air. His lungs are clear, he does not appear dyspneic and he is not tachycardic. My suspicion for acute pulmonary embolus is low so I started with a chest x-ray césar D-dimer as well as basic labs. His D-dimer returned within normal limits ruling out pulmonary embolus complicating his COVID-19. Chest x-ray 1 view on my interpretation shows possibly some interstitial abnormality diffusely but no acute consolidation, pneumothorax or other acute abnormality. Patient did dip down to 88% on room air to be placed on 2 L of oxygen which kept him well into the 90s. He does have a mild leukocytosis which is nonspecific, his sodium is 128, and the rest of his labs are unremarkable. His guardian called and wanted him to try to be discharged back to the custodial if at all possible even if on oxygen which she is needing. We discussed with the custodial, unfortunately they are not able to accommodate oxygen there. For that reason I feel we will need to admit him due to the hypoxemia. Decadron 6 mg given. With regards to his fall, he has now been observed for 3.5 hours post fall, and displayed no signs of head injury, he has no anticoagulants, and I think he can safely continue to be observed with regards to the possibility of a head injury I do not think he needs a head CT. Radiology read his x-ray is left basilar infiltrate versus atelectasis, at this time I am favoring the latter. He has not coughed while he has been here in emergency department. He will be admitted and will be continued to be evaluated. History & Record Review Discussion w/independent historian: EMS personnel and Other (custodial staff) Additional record(s) reviewed:: Prior labs Lab Data Attestation: I reviewed the patient's lab results. Labs: Laboratory Results - last 24 hr 11/04/22 07:27 WBC 11.1 H RBC 4.41 L Hgb 13.2 Hct 37.8 L MCV 85.7 MCH 29.9 MCHC 34.9 RDW Std Deviation 37.2 RDW Coeff of Celi 11.8 Plt Count 251 MPV 9.1 Immature Gran % (Auto) 0.400 Neut % (Auto) 80.2 H Lymph % (Auto) 5.7 L Greene % (Auto) 13.2 H Eos % (Auto) 0.1 Baso % (Auto) 0.4 Absolute Neuts (auto) 8.9 H Absolute Lymphs (auto) 0.63 L Nucleated RBC % 0 D-Dimer Quant (PE/DVT) 0.39 Sodium 128 L Potassium 3.9 Chloride 95 L Carbon Dioxide 24.0 Anion Gap 9 BUN 15 Creatinine 0.95 Estim Creat Clear Calc 72.00 Est GFR (MDRD) Af Amer 101 Est GFR (MDRD) Non-Af 83 BUN/Creatinine Ratio 15.7 Glucose 152 H Calcium 8.5 Radiography Diagnostic Testing: Clinical Impression(s) from Imaging Studies Chest X-Ray 11/04/22 07:17 IMPRESSION: Left basilar infiltrate/atelectasis. Possible small left pleural effusion. Electronically Signed: Anthony Dupree MD at 8:34 EDT , Discharge Plan Dx/Rx/DC Orders Clinical Impression: COVID-19, Hypoxemia, Fall Disposition Disposition: Acute Care Hospital [facility] What to do if you have Problems For any increased pain, shortness of breath, bleeding, nausea or vomiting, chestpain, or any unexpected problems, contact your Primary Care Provider. Call [facility] ([phone]) or report to the closest Emergency Room. Call 911 if necessary. 11/04/22924 <Electronically signed by Jefferson Lazar MD> Cosigner Signature (if applicable): CC: Dr. Dean Felipe MD ~ Signed [facility] Work Phone: 1(246) 123-732908-12-2023 History and physical note Author Alice Mckeon [facility] November 04, 2022 9:04am Note Date/Time November 04, 2022 8: 55am [facility] Medical Records Department [address] [place] [address] H&P Exam - Hospitalist 11/04/2241 MR#: [id number] Acct: [id number] Name: NAYLA BENNETT Rep #:[id number] : 1955 67 From: Alice Mckeon DO PCP: Dr. Dean Felipe MD Status:REG E R Location: ED HPI - General General Date of Admission: 11/04/22 Date of Service: 11/04/22 Chief Complaint: Fall HPI Narrative NAYLA BENNETT, is a 67 M who presented to the emergency department at [facility] on 11/04/2022 after sustaining a fall at his custodial. All history is taken from what EMS reported to the ED physician in the ED staff discussing with custodial staff. Patient is nonverbal at baseline. Squad reported that he did not appear injured to them but was unsteady on his feet while transporting him to the [facility] for transportation to the emergency department. Evidently somebody checked on him at 4 AM and he was still in bed sleeping however at 5 AM he was sitting on the floor like he had fallen out nextto his bed. They were able to get him up but was more difficult than usual. Heapparently was tested positive as an outpatient for COVID-19 and was started on Paxlovid yesterday. Vital signs on presentation demonstrated temperature of 97, blood pressure 165/65, respiratory rate was 25 initially but on repeat was 18, oxygen saturations were initially 92% on room air but he did desat to 88% on room air and was placed on 2 L nasal cannula which improved his oxygen saturations to 96%. CBC showed a mild leukocytosis with a white count of 11.1 and a left shiftof 80.2. D-dimer was normal. Chemistry showed chronic hyponatremia with a sodium of 128 which appears consistent with his baseline and hyperglycemia with a glucose of 152. His chest x-ray is unremarkable. COVID tested here is pending however outpatient study was positive per custodial. Initial intent was to discharge back to the custodial with oxygen per discussion with the guardian and the emergency department physician however the custodial is unable to take oxygen and therefore admission was required. [facility] Medical History Developmental non-verbal disorder Diabetes mellitus, type II Epilepsy, unspecified, not intractable, without status epilepticus HTN (hypertension) Hyperlipidemia Schizophrenia Seizure disorder Vitamin B12 deficiency Home Medications loratadine 10 mg tablet 10 mg PO DAILY 07/16/16 [History Last Taken Unknown] omega 5-nqu-snt-fish oil 300 mg-1,000 mg capsule 1 ea PO BID 07/16/16 [History Last Taken Unknown] risperidone 3 mg tablet 3 mg PO QHS 07/16/16 [History Last Taken Unknown] atorvastatin 40 mg tablet 40 mg PO QHS 11/27/19 [History Last Taken Unknown] metformin 1,000 mg tablet 1,000 mg PO BID 11/27/19 [History Last Taken Unknown] chlorhexidine gluconate 0.12 % mouthwash 15 ml buccal DAILY 12/02/19 [History Last Taken Unknown] fluticasone propionate 50 mcg/actuation nasal spray,suspension 1 spray intranasal DAILY 12/02/19 [History Last Taken Unknown] levothyroxine 50 mcg capsule 50 mcg PO DAILY 12/02/19 [History Last Taken Unknown] multivitamin 1 tab PO DAILY 12/02/19 [History Last Taken Unknown] polyethylene glycol 3350 17 gram oral powder packet 17 g PO BID 12/02/19 [History Last Taken Unknown] tamsulosin 0.4 mg capsule 0.4 mg PO DAILY 12/02/19 [History Last Taken Unknown] lisinopril 2.5 mg tablet 2.5 mg PO DAILY 08/03/20 [History Last Taken Unknown] cholecalciferol (vitamin D3) 1,250 mcg (50,000 unit) capsule 1,250 mcg PO QMONTH#3 caps 06/01/22 [Rx Last Taken Unknown] levetiracetam 1,000 mg tablet 1,000 mg PO BID #60 tabs 06/01/22 [Rx Last Taken Unknown] mecobalamin (vitamin B12) 1,000 mcg chewable tablet (B12 Active) 1,000 mcg PO DAILY #30 tabs 06/01/22 [Rx Last Taken Unknown] phenobarbital 60 mg tablet 120 mg (2 x 60 mg) PO QHS #60 tabs 06/01/22 [Rx Last Taken Unknown] Allergy/AdvReac Type Severity Reaction Status Date / Time No Known Allergies Allergy Verified 11/04/22 07:13 Family History unable to obtain unable to obtain Surgical History (Updated 06/01/22 @ 12:57 by Amna Kapadia) No history of previous surgery Surgical History unable to obtain unable to obtain Social History (Updated 11/04/22 @ 08:[address] Alice Mckeon, DO) housing: other details: [facility] Smoking Status: Never smoker Electronic Cigarette Use: not used second hand exposure: No alcohol intake: never substance use type: does not use seatbelt use: always ROS ROS Narrative Unable to obtain as patient is nonverbal at baseline Vital Signs Vital Signs Vital Signs: 11/04/22 07:10 11/04/22 07:33 11/04/22 07:33 Temperature 97 F L Temperature Source Temporal Pulse Rate 98 Respiratory Rate 25 H Blood Pressure 165/65 H Blood Pressure Mean 98 Pulse Ox 92 92 Oxygen Delivery Method Room Air Room Air Room Air Oxygen Flow Rate (L/min) 11/04/22 08:00 11/04/22 08:03 11/04/22 08:35 Temperature Temperature Source Pulse Rate Respiratory Rate 18 Blood Pressure Blood Pressure Mean Pulse Ox 88 96 96 Oxygen Delivery Method Room Air Nasal Cannula Nasal Cannula Oxygen Flow Rate (L/min) 2 2 Weight Weight: 99.1 kg Body Mass Index (BMI) 33.2 Physical Exam Const alert, no apparent distress, healthy appearing and well nourished; Negative for average body habitus Constitutional Narrative: Obese, upper middle-aged, nonverbal, white male, sitting up in bed, appears comfortable and nontoxic General Appearance: cooperative HEENT normocephalic, head/scalp atraumatic and moist oral mucous membranes HEENT Narrative: Mallampati 3, no thrush, dentition is poor with multiple teeth missing, difficulty to assess hearing but hearing seems to be intact Eyes PERRL, EOMs intact bilaterally and conjunctivae normal Neck no lymphadenopathy Neck Narrative: Neck is short and thick, trachea is midline, no thrush Resp normal respiratory effort, no retractions, no use of accessory muscles and clearto auscultation bilaterally Auscultation: Negative for rales, rhonchi or wheezes Cardio regular rate, regular rhythm, S1 normal heart sound, S2 normal heart sound, no murmurs, no rub, no gallops and no clicks GI normal to inspection, nondistended, normoactive bowel sounds, soft to palpation and non-tender Extremity no clubbing, cyanosis or edema Extremity Narrative: Pedal pulses are 2+, radial pulses are 2+ Skin Skin Narrative: Erythema on both knees I suspect this is related to fall, no bruising Neuro CN's II-XII intact bilaterally, moves all extremities and no focal motor deficits Neuro Narrative: Unable to ascertain orientation as patient is nonverbal Speech: Negative for speech normal Psych Psych Narrative: Difficult to assess but patient is currently calm and cooperative Results Lab / Micro Data Attestation: I reviewed the patient's lab results. 11/04/22 07:27 11/04/22 07:27 Labs: Laboratory Results - last 24 hr 11/04/22 07:27: WBC 11.1 H, RBC 4.41 L, Hgb 13.2, Hct 37.8 L, MCV 85.7, MCH 29.9, MCHC 34.9, RDW Std Deviation 37.2, RDW Coeff of Celi 11.8, Plt Count 251, MPV 9.1, Immature Gran % (Auto) 0.400, Neut % (Auto) 80.2 H, Lymph % (Auto) 5.7 L, Greene % (Auto) 13.2 H, Eos % (Auto) 0.1, Baso % (Auto) 0.4, Absolute Neuts (auto) 8.9 H, Absolute Lymphs (auto) 0.63 L, Nucleated RBC % 0, D-Dimer Quant (PE/DVT) 0.39, Sodium 128 L, Potassium 3.9, Chloride 95 L, Carbon Dioxide 24.0, Anion Gap 9, BUN 15, Creatinine 0.95, Estim Creat Clear Calc 72.00, Est GFR (MDRD) Af Amer 101, Est GFR (MDRD) Non-Af 83, BUN/Creatinine Ratio 15.7, [id number] H, Calcium 8.5 Radiology Impression Chest X-Ray 11/04/22 07:17 IMPRESSION: Left basilar infiltrate/atelectasis. Possible small left pleural effusion. Electronically Signed: Anthony Dupree MD at 8:34 EDT , Assessment & Plan Assessment/Plan (1) Hypoxemia: (2) COVID-19: (3) Fall: PLAN: Plan Acute hypoxia secondary to COVID-19 pneumonia -Typically does not require oxygen at baseline and now on 2 L -Wean as able -Desatted into the 80s on room air -Decadron initiated in the emergency department we will continue 6 mg daily x9 more days -Start remdesivir with loading dose and daily dose x5 days -Will check daily CBC and liver functions -Pulmonary toilet if patient able to follow commands enough to perform incentivespirometry and Acapella -No current concern for superimposed bacterial pneumonia but will monitor -Once patient is back on room air should be able to discharge back to custodial--> they are unable to accommodate oxygen Falls -Suspect weakness due to COVID-19 infection -Consult PT/OT Chronic hyponatremia -Current sodium appears to be within baseline -We will monitor the sodium can drop with acute COVID-19 infection Seizure disorder -Continue home Keppra -Continue home phenobarbital Schizophrenia -Continue home risperidone -Patient is nonverbal at baseline HTN/HPL -Continue home atorvastatin -Continue home Toprol DM-2 -Hold home metformin -Start sliding scale -Accu-Cheks as ordered Constipation -Appears to be chronic -Continue home medication BPH -Continue home Flomax Vitamin B12 deficiency -Continue supplementation Obesity -BMI 33.2 -Recommend weight loss next-complicates treatment, prognosis, outcomes DVT prophylaxis -Enoxaparin 40 daily CODE STATUS -Verifying with guardian Charges/Coding Visit Charges Inpatient E&M: 37826 Init Hosp L2 11/04/22 0904 <Electronically signed by Alice Mckeon DO> Cosigner Signature (if applicable): CC: Dr. Alice Mckeon DO; Dr. Dean Felipe MD~ Signed [facility] Work Phone: [phone]) 963-789308-12-2023 Discharge summary Author Jefferson Lazar [facility] November 04, 2022 9:25am Note Date/Time November 04, 2022 7: 21am [facility] Medical Records Department [address] [place] [address] Emergency Department Summary 11/04/22 MR#: [id number] Acct: [id number] Name: NAYLA BENNETT Rep #:[id number] : 1955 67 From: Jefferson Lazar MD PCP: Dr. Dean Felipe MD Status:REG E R Location: ED HPI HPI - Fall History of Present Illness Chief Complaint: Fall Informant: EMS Narrative Narrative: [facility] resident who recently tested positive for COVID who had a minor fall this morning according to EMS, and was weak getting up to his feet and so EMS was called for transport to the hospital and further evaluation. There were no other details given. EMS states that he did not seem injured to them, and although he was a little unsteady on his feet he was able to walk to the cot forth. He is autistic and nonverbal at baseline according to their report. Patient is nonverbal and does not indicate anything in particular, but is cooperative with us. No history available from the patient. No report was given from the custodial staff, our nurses called to discuss details. Apparently someone checked on him around 4 AM and he was still in bed sleeping and at 5 AM, he was sitting on the floor like he had fallen next to hisbed. They were able to get him up but it was more difficult than usual possiblydue to being weak. At baseline mental status which is nonverbal but usually cooperative. Staff later added that he was just started on Paxlovid yesterday. [facility] Medical History Developmental non-verbal disorder Diabetes mellitus, type II Epilepsy, unspecified, not intractable, without status epilepticus HTN (hypertension) Hyperlipidemia Schizophrenia Seizure disorder Vitamin B12 deficiency Home Medications loratadine 10 mg tablet 10 mg PO DAILY 07/16/16 [History Last Taken Unknown] omega 7-yqg-xni-fish oil 300 mg-1,000 mg capsule 1 ea PO BID 07/16/16 [History Last Taken Unknown] risperidone 3 mg tablet 3 mg PO QHS 07/16/16 [History Last Taken Unknown] atorvastatin 40 mg tablet 40 mg PO QHS 11/27/19 [History Last Taken Unknown] metformin 1,000 mg tablet 1,000 mg PO BID 11/27/19 [History Last Taken Unknown] chlorhexidine gluconate 0.12 % mouthwash 15 ml buccal DAILY 12/02/19 [History Last Taken Unknown] fluticasone propionate 50 mcg/actuation nasal spray,suspension 1 spray intranasal DAILY 12/02/19 [History Last Taken Unknown] levothyroxine 50 mcg capsule 50 mcg PO DAILY 12/02/19 [History Last Taken Unknown] multivitamin 1 tab PO DAILY 12/02/19 [History Last Taken Unknown] polyethylene glycol 3350 17 gram oral powder packet 17 g PO BID 12/02/19 [History Last Taken Unknown] tamsulosin 0.4 mg capsule 0.4 mg PO DAILY 12/02/19 [History Last Taken Unknown] lisinopril 2.5 mg tablet 2.5 mg PO DAILY 08/03/20 [History Last Taken Unknown] cholecalciferol (vitamin D3) 1,250 mcg (50,000 unit) capsule 1,250 mcg PO QMONTH#3 caps 06/01/22 [Rx Last Taken Unknown] levetiracetam 1,000 mg tablet 1,000 mg PO BID #60 tabs 06/01/22 [Rx Last Taken Unknown] mecobalamin (vitamin B12) 1,000 mcg chewable tablet (B12 Active) 1,000 mcg PO DAILY #30 tabs 06/01/22 [Rx Last Taken Unknown] phenobarbital 60 mg tablet 120 mg (2 x 60 mg) PO QHS #60 tabs 06/01/22 [Rx Last Taken Unknown] Allergy/AdvReac Type Severity Reaction Status Date / Time No Known Allergies Allergy Verified 11/04/22 07:13 Family History unable to obtain Surgical History (Updated 06/01/22 @ 12:57 by Amna Kapadia) No history of previous surgery Surgical History unable to obtain Social History (Updated 11/04/22 @ 08:[address] Alice Mckeon, DO) housing: other details: [facility] Smoking Status: Never smoker Electronic Cigarette Use: not used second hand exposure: No alcohol intake: never substance use type: does not use seatbelt use: always ROS ROS ED Review of Systems ROS Unobtainable: due to mental condition EXAM Physical Exam Const Vital Signs: 11/04/22 07:10 11/04/22 07:33 11/04/22 07:33 Temperature 97 F L Temperature Source Temporal Pulse Rate 98 Respiratory Rate 25 H Blood Pressure 165/65 H Blood Pressure Mean 98 Pulse Ox 92 92 Oxygen Delivery Method Room Air Room Air Room Air Oxygen Flow Rate (L/min) 11/04/22 08:00 11/04/22 08:03 11/04/22 08:35 Temperature Temperature Source Pulse Rate Respiratory Rate 18 Blood Pressure Blood Pressure Mean Pulse Ox 88 96 96 Oxygen Delivery Method Room Air Nasal Cannula Nasal Cannula Oxygen Flow Rate (L/min) 2 2 11/04/22 09:14 Temperature 98.4 F Temperature Source Temporal Pulse Rate 86 Respiratory Rate 18 Blood Pressure 160/75 H Blood Pressure Mean 103 Pulse Ox 98 Oxygen Delivery Method Nasal Cannula Oxygen Flow Rate (L/min) 2 Positive well nourished and well developed General Appearance ED: well developed and NAD HEENT Reports TM's clear and nasal mucous membranes and turbinates normal atraumatic Face and Sinus: Negative for facial tenderness Tympanic Membrane ED: Yes TM's clear Eyes PERRL and EOMs intact bilaterally Visual Acuity: other Other Details: no entrapment or pain with extraocular movements Neck full ROM and supple General: Negative for tenderness Chest Wall inspection of chest normal and palpation of chest normal Chest: symmetrical chest wall rise; Negative for crepitus or tenderness Resp normal respiratory effort and clear to auscultation bilaterally Percussion: other equal BS bilat Cardio no murmurs Rate: regular rate; Negative for tachycardic Rhythm: regular rhythm GI normal to inspection, nondistended, normoactive bowel sounds, soft to palpation and non-tender Back/Spine normal ROM Cervical Spine: Negative for cervical spine tenderness Thoracic Spine / Upper Back: Negative for thoracic spinal tenderness Lumbar Spine / Lower Back: Negative for lumbar spinal tenderness Extremity normal to inspection and full ROM General Extremety ED: Negative for tenderness Neuro CN's II-XII intact bilaterally, moves all extremities, no focal motor deficits and no sensory deficits noted [place] Coma Scale: document GCS findings (within limits of exam given that pt is nonverbal; at baseline per EMS, per custodial staff) Spontaneous Obeys Commands Oriented 15 Sensorium / Orientation: awake and alert Skin no wounds Skin Narrative: abrasion left elbow olecranon, nontender Lesions: no lesions Rashes: no rashes [facility] MDM MDM Narrative Medical decision making narrative: Nurses and I were able to get him to get out of bed with assistance and stand without any difficulty. He was able to take steps in place and does not appear to be in any pain. He is moving all 4 extremities equally, he has no signs of any head trauma and I do not think he needs to be x-rayed or CT'd in order to rule out any significant injury. My concern is that he has COVID, and precautions were taken, but he is borderline hypoxemic 90-92% on room air. His lungs are clear, he does not appear dyspneic and he is not tachycardic. My suspicion for acute pulmonary embolus is low so I started with a chest x-ray césar D-dimer as well as basic labs. His D-dimer returned within normal limits ruling out pulmonary embolus complicating his COVID-19. Chest x-ray 1 view on my interpretation shows possibly some interstitial abnormality diffusely but no acute consolidation, pneumothorax or other acute abnormality. Patient did dip down to 88% on room air to be placed on 2 L of oxygen which kept him well into the 90s. He does have a mild leukocytosis which is nonspecific, his sodium is 128, and the rest of his labs are unremarkable. His guardian called and wanted him to try to be discharged back to the custodial if at all possible even if on oxygen which she is needing. We discussed with the custodial, unfortunately they are not able to accommodate oxygen there. For that reason I feel we will need to admit him due to the hypoxemia. Decadron 6 mg given. With regards to his fall, he has now been observed for 3.5 hours post fall, and displayed no signs of head injury, he has no anticoagulants, and I think he can safely continue to be observed with regards to the possibility of a head injury I do not think he needs a head CT. Radiology read his x-ray is left basilar infiltrate versus atelectasis, at this time I am favoring the latter. He has not coughed while he has been here in emergency department. He will be admitted and will be continued to be evaluated. History & Record Review Discussion w/independent historian: EMS personnel and Other (custodial staff) Additional record(s) reviewed:: Prior labs Lab Data Attestation: I reviewed the patient's lab results. Labs: Laboratory Results - last 24 hr 11/04/22 07:27 WBC 11.1 H RBC 4.41 L Hgb 13.2 Hct 37.8 L MCV 85.7 MCH 29.9 MCHC 34.9 RDW Std Deviation 37.2 RDW Coeff of Celi 11.8 Plt Count 251 MPV 9.1 Immature Gran % (Auto) 0.400 Neut % (Auto) 80.2 H Lymph % (Auto) 5.7 L Greene % (Auto) 13.2 H Eos % (Auto) 0.1 Baso % (Auto) 0.4 Absolute Neuts (auto) 8.9 H Absolute Lymphs (auto) 0.63 L Nucleated RBC % 0 D-Dimer Quant (PE/DVT) 0.39 Sodium 128 L Potassium 3.9 Chloride 95 L Carbon Dioxide 24.0 Anion Gap 9 BUN 15 Creatinine 0.95 Estim Creat Clear Calc 72.00 Est GFR (MDRD) Af Amer 101 Est GFR (MDRD) Non-Af 83 BUN/Creatinine Ratio 15.7 Glucose 152 H Calcium 8.5 Radiography Diagnostic Testing: Clinical Impression(s) from Imaging Studies Chest X-Ray 11/04/22 07:17 IMPRESSION: Left basilar infiltrate/atelectasis. Possible small left pleural effusion. Electronically Signed: Anthony Dupree MD at 8:34 EDT , Discharge Plan Dx/Rx/DC Orders Clinical Impression: COVID-19, Hypoxemia, Fall Disposition Disposition: Acute Care Hospital [facility] What to do if you have Problems For any increased pain, shortness of breath, bleeding, nausea or vomiting, chestpain, or any unexpected problems, contact your Primary Care Provider. Call [facility] ([phone]) or report to the closest Emergency Room. Call 911 if necessary. 11/04/22924 <Electronically signed by Jefferson Lazar MD> Cosigner Signature (if applicable): CC: Dr. Dean Felipe MD ~ Signed [facility] Work Phone: Chief complaint+Reason for visit Narrative* Chief Complaint HYPOXIA,/COVID PNA FALL Reason for Visit COVID-19 Fall Hypoxemia [facility] Work Phone: Chief complaint+Reason for visit Narrative* Chief Complaint HYPOXIA,/COVID PNA FALL HYPOXIA,/COVID PNA Reason for Visit COVID-19 Fall Hypoxemia [facility] Work Phone: Discharge summary Author Alice Mckeon [facility] November 05, 2022 12:02pm Note Date/Time November 05, 2022 11 :59am [facility] Medical Records Department [address] [place] [id number] Discharge Summary 11/05/22 1152 MR#: [id number] Acct: [id number] Name: NAYLA BENNETT Rep #:[id number] : 1955 67 From: Alice Mckeon DO PCP: Dr. Dean Felipe MD Status:ADM I N [place] [facility] [place] [id number] Prov[place] Date of Admission: 11/04/22 Date of Discharge: 11/05/22 Primary Care Physician: Dr. Dean Felipe MD Reason For Visit: HYPOXIA,/COVID PNA Diagnosis Discharge Diagnosis (1) Hypoxemia: Status: Acute Code(s): R09.02 - Hypoxemia (2) COVID-19: Status: Acute Code(s): U07.1 - COVID-19 (3) Fall: Status: Acute Code(s): W19.XXXA - Unspecified fall, initial encounter Medications at Discharge Home Medications loratadine 10 mg tablet 10 mg PO DAILY PRN allergies 07/16/16 omega 9-kxl-yho-fish oil 300 mg-1,000 mg capsule 1 ea PO BID 07/16/16 risperidone 3 mg tablet 3 mg PO QHS 07/16/16 atorvastatin 40 mg tablet 40 mg PO QHS 11/27/19 metformin 1,000 mg tablet 1,000 mg PO BID 11/27/19 chlorhexidine gluconate 0.12 % mouthwash 15 ml buccal DAILY 12/02/19 fluticasone propionate 50 mcg/actuation nasal spray,suspension 1 spray intranasal DAILY 12/02/19 levothyroxine 50 mcg capsule 50 mcg PO DAILY 12/02/19 multivitamin 1 tab PO DAILY 12/02/19 polyethylene glycol 3350 17 gram oral powder packet 17 g PO BID 12/02/19 tamsulosin 0.4 mg capsule 0.4 mg PO DAILY 12/02/19 lisinopril 2.5 mg tablet 2.5 mg PO DAILY 08/03/20 cholecalciferol (vitamin D3) 1,250 mcg (50,000 unit) capsule 1,250 mcg PO QMONTH#3 caps 06/01/22 levetiracetam 1,000 mg tablet 1,000 mg PO BID #60 tabs 06/01/22 mecobalamin (vitamin B12) 1,000 mcg chewable tablet (B12 Active) 1,000 mcg PO DAILY #30 tabs 06/01/22 phenobarbital 60 mg tablet 120 mg (2 x 60 mg) PO QHS #60 tabs 06/01/22 dexamethasone 4 mg tablet 6 mg (1.5 x 4 mg) PO DAILY #8 tabs 11/05/22 Hospital Course Procedures - (Chest x-ray) Summary of Care Provided Minutes Spent on Discharge: 25 Hospital Course: Mr. Bennett is a 67-year-old white male who presented to the emergency department at [facility] on 11/04/2022 after sustaining a fall at his custodial. All history was taken from the EMS report and the ED physician after theydiscussed the case with his custodial staff as he is nonverbal at baseline. The squad reported that he did not appear injured after he fell but was unsteadyon his feet while transporting him back to the cot. Evidently somebody had checked on him at 4 AM and he was still in bed but at 5 AM he was found on the floor like he had fallen out next to his bed. They were able to get him up but it was a bit more difficult than usual. He had tested positive for COVID the day prior and was started on Paxlovid on 11/03/2022. Vital signs on presentation demonstrated temperature of 97, blood pressure 165/65, respiratory rate was 25 initially but on repeat was 18, oxygen saturations were initially 92% on room air but he did desat to 88% on room air and was placed on 2 L nasal cannula which improved his oxygen saturations to 96%. CBC showed a mild leukocytosis with a white count of 11.1 and a left shift of 80.2. D-dimer was normal. Chemistry showed chronic hyponatremia with a sodium of 128 which appears consistent with his baseline and hyperglycemia with a glucose of 152. His chestx-ray is unremarkable. His rapid COVID test here was positive as well. The initial intent was to discharge him back to his custodial with oxygen as he wasrequiring 2 L due to an oxygen saturation of 88% on room air however his custodial was not able to take him with oxygen and therefore admission was required. He was admitted to the medical floor and placed on 2 L nasal cannula and startedon Decadron and remdesivir. After coming up from the emergency department he never required oxygen again and was stable in the mid 90s on room air. We did an ambulatory pulse ox on 11/05/2022 and he was stable on room air both with restand with exertion. Given the fact he was no longer needing supplemental oxygen we will discharge him back to his custodial. I will continue his Decadron and would recommend continuation of Paxlovid after discharge to complete the course. I would recommend ongoing isolation for 5 days after positive test which would be 11/08/2022 and then recommend wearing a mask when he is around people for 5 days until 11/13/2022 at that point time he can resume normal contact. He was discharged in stable condition on 11/05/2021 back to his custodial with prescription for Decadron to complete 8 more days. We have recommend he follow- up with his primary care physician within the next 1 to 2 weeks after he is out of isolation Discharge diagnoses: Acute hypoxia Acute COVID-19 infection Falls Chronic hyponatremia-stable Seizure disorder Autism Schizophrenia Hypertension Hyperlipidemia DM-2 Constipation-chronic BPH Vitamin B12 deficiency Obesity Physical Exam Const alert, no apparent distress, healthy appearing and well nourished; Negative for average body habitus Constitutional Narrative: Obese, upper middle-aged, nonverbal, white male, lying in bed, appears comfortable and nontoxic, clinical nursing assistant at bedside getting cleaned up General Appearance: cooperative, comfortable, well kempt and well developed Exam Limitations: other limitations Nutritional Appearance: obese HEENT normocephalic, head/scalp atraumatic and moist oral mucous membranes HEENT Narrative: Dentition is poor, Mallampati is 2-3, no thrush Resp normal respiratory effort, no retractions, no use of accessory muscles and clearto auscultation bilaterally Auscultation: Negative for rales, rhonchi or wheezes Cardio regular rate, regular rhythm, S1 normal heart sound, S2 normal heart sound, no murmurs, no rub, no gallops and no clicks GI normal to inspection, nondistended, normoactive bowel sounds, soft to palpation and non-tender Extremity no clubbing, cyanosis or edema Extremity Narrative: Pedal pulses are 2+, radial pulses are 2+ Neuro moves all extremities and no focal motor deficits Neuro Narrative: Unable to ascertain orientation as patient is nonverbal Speech: Negative for speech normal Psych Psych Narrative: Difficult to assess but patient is currently calm and cooperative Weight / BMI Weight Weight: 99.1 kg Body Mass Index (BMI) 33.2 ABG / Lab / Microbiology Data 11/05/22 06:47 11/05/22 06:47 Laboratory: Laboratory Results - last 24 hr 11/04/22 11:46: POC Glucose 147 H 11/04/22 15:00: Urine Color Yellow, Urine Clarity Clear, Urine pH 6.5, Ur Specific [place] 1.010, Urine Protein 30 H, Urine Glucose (UA) 250 H, Urine Ketones 5 H, Urine Occult Blood 50 H, Urine Nitrite Negative, Urine Bilirubin Negative, Urine Urobilinogen Normal, Ur Leukocyte Esterase Negative, Urine RBC 0SEEN, Urine WBC 0 SEEN, Ur Squamous Epith Cells 0 SEEN, Urine Bacteria 0 SEEN, Urine Mucus 0 SEEN 11/04/22 16:53: POC Glucose 114 H 11/04/22 22:02: POC Glucose 105 11/05/22 06:30: POC Glucose 131 H 11/05/22 06:47: WBC 9.3, RBC 4.70, Hgb 13.9, Hct 40.5, MCV 86.2, MCH 29.6, MCHC 34.3, RDW Std Deviation 37.2, RDW Coeff of Celi 11.9, Plt Count 275, MPV 9.2, Immature Gran % (Auto) 0.300, Neut % (Auto) 55.5, Lymph % (Auto) 25.1, Greene % (Auto) 18.0 H, Eos % (Auto) 0.6, Baso % (Auto) 0.5, Absolute Neuts (auto) 5.1, Absolute Lymphs (auto) 2.33, Nucleated RBC % 0, Sodium 133 L, Potassium 3.8, Chloride 99, Carbon Dioxide 26.0, Anion Gap 8, BUN 14, Creatinine 0.80, Estim Creat Clear Calc 85.50, Est GFR (MDRD) Af Amer 123, Est GFR (MDRD) Non-Af 102, BUN/Creatinine Ratio 17.5, Glucose 124 H, Calcium 8.4 L, Phosphorus 3.2, Magnesium 2.0, Total Bilirubin 0.30, AST 63 H, ALT 35, Alkaline Phosphatase 82, Total Protein 6.7, Albumin 3.0 L, Globulin 3.7, Albumin/Globulin Ratio 0.8 L, TSH 3.49 Microbiology: Microbiology 11/04/22 08:45 Nasal Secretion SARS-CoV-2 Antigen (Rapid) - Final SARS-CoV-2 (COVID 19) D/C Instructions Discharge Diet: Low fat / Low cholesterol and 1800 Calorie Control Diet Meaningful Use Info Meaningful Use Diagnoses (Choose all that apply): None applicable Discharge Plan Admission Admit Date/Time: 11/04/22 08:35 Primary Reason for Your Visit: Fall Attending Provider: Alice Mckeon Primary Care Provider: Dean Felipe Chi Instructions Additional Instructions / Restrictions: 1. Patient was diagnosed with COVID-19 infection on 11/03/2022. I would recommend isolation for 5 days until 11/08/2022 and then wear a mask in public and when around other people from 11/08/2022 until 11/12/2022 2. Resume home Paxlovid and complete Decadron course as prescribed Discharge Orders/Prescriptions Prescriptions: New dexamethasone 4 mg Tablet 6 mg PO DAILY Qty: 8 0RF Continued metformin 1,000 mg tablet 1,000 mg PO BID atorvastatin 40 mg tablet 40 mg PO QHS levothyroxine 50 mcg capsule 50 mcg capsule 50 mcg PO DAILY chlorhexidine gluconate 0.12 % mouthwash 15 ml BUCCAL DAILY multivitamin Tablet 1 tab PO DAILY polyethylene glycol 3350 17 gram powder in packet 17 g PO BID fluticasone propionate 50 mcg/actuation spray,suspension 1 spray INTRANASAL DAILY Rx Instructions: administer into each nostril tamsulosin 0.4 mg capsule 0.4 mg PO DAILY lisinopril 2.5 mg tablet 2.5 mg PO DAILY phenobarbital 60 mg tablet 120 mg PO QHS Qty: 60 5RF levetiracetam 1,000 mg tablet 1,000 mg PO BID Qty: 60 6RF cholecalciferol (vitamin D3) 1,250 mcg (50,000 unit) capsule 1,250 mcg PO QMONTH Qty: 3 2RF B12 Active 1,000 mcg tablet,chewable 1,000 mcg PO DAILY Qty: 30 6RF risperidone 3 MG tablet 3 mg PO QHS loratadine 10 MG tablet 10 mg PO DAILY PRN omega 4-aqu-woc-fish oil 1 EACH capsule 1 ea PO BID Referrals / Follow Up: Dean Felipe Chi, MD [Primary Care Provider] - Within 2 Weeks Disposition Disposition (needs filled in before D/C Order can be placed): Home, Self Care 11/05/22 1202 <Electronically signed by Alice Mckeon DO> Cosigner Signature (if applicable): CC: Dr. Alice Mckeon DO; Dr. Dean Felipe MD~ Signed [facility] Work Phone: evaluation noteNo assessment information available [facility] Work Phone: evaluation note* Diagnosis Onset Date Resolution Status Epilepsy, unspecified, not i ntractable, without status epilepticus acute Vitamin B12 deficiency acute Vitamin D insufficiency acut e [facility] Work Phone: Evaluation note* Diagnosis Onset Date Resolution Status COVID-19 acute Fall acute Hypoxemia acute [facility] Work Phone: Evaluation note* Diagnosis Onset Date Resolution Status COVID-19 acute Fall resolved Hypoxemia resolved Epilepsy, unspecified, not i ntractable, without status epilepticus chronic Vitamin B12 deficiency resol sybil Vitamin D insufficiency reso [facility] Work Phone: evaluation note* Diagnosis Onset Date Resolution Status Epilepsy, unspecified, not i ntractable, without status epilepticus chronic Vitamin B12 deficiency resol sybil Vitamin D insufficiency reso [facility] Work Phone: Evaluation note* Diagnosis Onset Date Resolution Status Admit Date Epilepsy, unspecified, not intractable, without status epilepticus chronic November 26 10:31am Vitamin B12 deficiency resolved Se ptember 2024 10:31am Vitamin D insufficiency resolved S eptember 2024 10:31am [facility] Work Phone: History and physical note Author Alice Mckeon [facility] November 04, 2022 9:04am Note Date/Time November 04, 2022 8: 55am [facility] Medical Records Department [address] [place] [address] H&P Exam - Hospitalist 11/04/22 0841 MR#: [id number] Acct: [id number] Name: NAYLA BENNETT Rep #:[id number] : 1955 67 From: Alice Mckeon DO PCP: Dr. Dean Felipe MD Status:REG E R Location: ED HPI - General General Date of Admission: 11/04/22 Date of Service: 11/04/22 Chief Complaint: Fall HPI Narrative NAYLA BENNETT, is a 67 M who presented to the emergency department at [facility] on 11/04/2022 after sustaining a fall at his custodial. All history is taken from what EMS reported to the ED physician in the ED staff discussing with custodial staff. Patient is nonverbal at baseline. More reported that he did not appear injured to them but was unsteady on his feet while transporting him to the [facility] for transportation to the emergency department. Evidently somebody checked on him at 4 AM and he was still in bed sleeping however at 5 AM he was sitting on the floor like he had fallen out nextto his bed. They were able to get him up but was more difficult than usual. Heapparently was tested positive as an outpatient for COVID-19 and was started on Paxlovid yesterday. Vital signs on presentation demonstrated temperature of 97, blood pressure 165/65, respiratory rate was 25 initially but on repeat was 18, oxygen saturations were initially 92% on room air but he did desat to 88% on room air and was placed on 2 L nasal cannula which improved his oxygen saturations to 96%. CBC showed a mild leukocytosis with a white count of 11.1 and a left shiftof 80.2. D-dimer was normal. Chemistry showed chronic hyponatremia with a sodium of 128 which appears consistent with his baseline and hyperglycemia with a glucose of 152. His chest x-ray is unremarkable. COVID tested here is pending however outpatient study was positive per custodial. Initial intent was to discharge back to the custodial with oxygen per discussion with the guardian and the emergency department physician however the custodial is unable to take oxygen and therefore admission was required. [facility] Medical History Developmental non-verbal disorder Diabetes mellitus, type II Epilepsy, unspecified, not intractable, without status epilepticus HTN (hypertension) Hyperlipidemia Schizophrenia Seizure disorder Vitamin B12 deficiency Home Medications loratadine 10 mg tablet 10 mg PO DAILY 07/16/16 [History Last Taken Unknown] omega 5-xxn-sct-fish oil 300 mg-1,000 mg capsule 1 ea PO BID 07/16/16 [History Last Taken Unknown] risperidone 3 mg tablet 3 mg PO QHS 04/23/17 [History Last Taken Unknown] atorvastatin 40 mg tablet 40 mg PO QHS 11/27/19 [History Last Taken Unknown] metformin 1,000 mg tablet 1,000 mg PO BID 11/27/19 [History Last Taken Unknown] chlorhexidine gluconate 0.12 % mouthwash 15 ml buccal DAILY 12/02/19 [History Last Taken Unknown] fluticasone propionate 50 mcg/actuation nasal spray,suspension 1 spray intranasal DAILY 12/02/19 [History Last Taken Unknown] levothyroxine 50 mcg capsule 50 mcg PO DAILY 12/02/19 [History Last Taken Unknown] multivitamin 1 tab PO DAILY 12/02/19 [History Last Taken Unknown] polyethylene glycol 3350 17 gram oral powder packet 17 g PO BID 12/02/19 [History Last Taken Unknown] tamsulosin 0.4 mg capsule 0.4 mg PO DAILY 12/02/19 [History Last Taken Unknown] lisinopril 2.5 mg tablet 2.5 mg PO DAILY 08/03/20 [History Last Taken Unknown] cholecalciferol (vitamin D3) 1,250 mcg (50,000 unit) capsule 1,250 mcg PO QMONTH#3 caps 06/01/22 [Rx Last Taken Unknown] levetiracetam 1,000 mg tablet 1,000 mg PO BID #60 tabs 06/01/22 [Rx Last Taken Unknown] mecobalamin (vitamin B12) 1,000 mcg chewable tablet (B12 Active) 1,000 mcg PO DAILY #30 tabs 06/01/22 [Rx Last Taken Unknown] phenobarbital 60 mg tablet 120 mg (2 x 60 mg) PO QHS #60 tabs 06/01/22 [Rx Last Taken Unknown] Allergy/AdvReac Type Severity Reaction Status Date / Time No Known Allergies Allergy Verified 11/04/22 07:13 Family History unable to obtain unable to obtain Surgical History (Updated 06/01/22 @ 12:57 by Amna Kapadia) No history of previous surgery Surgical History unable to obtain unable to obtain Social History (Updated 11/04/22 @ 08:[address] Alice Mckeon, ) housing: other details: [facility] Smoking Status: Never smoker Electronic Cigarette Use: not used second hand exposure: No alcohol intake: never substance use type: does not use seatbelt use: always ROS ROS Narrative Unable to obtain as patient is nonverbal at baseline Vital Signs Vital Signs Vital Signs: 11/04/22 07:10 11/04/22 07:33 11/04/22 07:33 Temperature 97 F L Temperature Source Temporal Pulse Rate 98 Respiratory Rate 25 H Blood Pressure 165/65 H Blood Pressure Mean 98 Pulse Ox 92 92 Oxygen Delivery Method Room Air Room Air Room Air Oxygen Flow Rate (L/min) 11/04/22 08:00 11/04/22 08:03 11/04/22 08:35 Temperature Temperature Source Pulse Rate Respiratory Rate 18 Blood Pressure Blood Pressure Mean Pulse Ox 88 96 96 Oxygen Delivery Method Room Air Nasal Cannula Nasal Cannula Oxygen Flow Rate (L/min) 2 2 Weight Weight: 99.1 kg Body Mass Index (BMI) 33.2 Physical Exam Const alert, no apparent distress, healthy appearing and well nourished; Negative for average body habitus Constitutional Narrative: Obese, upper middle-aged, nonverbal, white male, sitting up in bed, appears comfortable and nontoxic General Appearance: cooperative HEENT normocephalic, head/scalp atraumatic and moist oral mucous membranes HEENT Narrative: Mallampati 3, no thrush, dentition is poor with multiple teeth missing, difficulty to assess hearing but hearing seems to be intact Eyes PERRL, EOMs intact bilaterally and conjunctivae normal Neck no lymphadenopathy Neck Narrative: Neck is short and thick, trachea is midline, no thrush Resp normal respiratory effort, no retractions, no use of accessory muscles and clearto auscultation bilaterally Auscultation: Negative for rales, rhonchi or wheezes Cardio regular rate, regular rhythm, S1 normal heart sound, S2 normal heart sound, no murmurs, no rub, no gallops and no clicks GI normal to inspection, nondistended, normoactive bowel sounds, soft to palpation and non-tender Extremity no clubbing, cyanosis or edema Extremity Narrative: Pedal pulses are 2+, radial pulses are 2+ Skin Skin Narrative: Erythema on both knees I suspect this is related to fall, no bruising Neuro CN's II-XII intact bilaterally, moves all extremities and no focal motor deficits Neuro Narrative: Unable to ascertain orientation as patient is nonverbal Speech: Negative for speech normal Psych Psych Narrative: Difficult to assess but patient is currently calm and cooperative Results Lab / Micro Data Attestation: I reviewed the patient's lab results. 11/04/22 07:27 11/04/22 07:27 Labs: Laboratory Results - last 24 hr 11/04/22 07:27: WBC 11.1 H, RBC 4.41 L, Hgb 13.2, Hct 37.8 L, MCV 85.7, MCH 29.9, MCHC 34.9, RDW Std Deviation 37.2, RDW Coeff of Celi 11.8, Plt Count 251, MPV 9.1, Immature Gran % (Auto) 0.400, Neut % (Auto) 80.2 H, Lymph % (Auto) 5.7 L, Greene % (Auto) 13.2 H, Eos % (Auto) 0.1, Baso % (Auto) 0.4, Absolute Neuts (auto) 8.9 H, Absolute Lymphs (auto) 0.63 L, Nucleated RBC % 0, D-Dimer Quant (PE/DVT) 0.39, Sodium 128 L, Potassium 3.9, Chloride 95 L, Carbon Dioxide 24.0, Anion Gap 9, BUN 15, Creatinine 0.95, Estim Creat Clear Calc 72.00, Est GFR (MDRD) Af Amer 101, Est GFR (MDRD) Non-Af 83, BUN/Creatinine Ratio 15.7, [id number] H, Calcium 8.5 Radiology Impression Chest X-Ray 11/04/22 07:17 IMPRESSION: Left basilar infiltrate/atelectasis. Possible small left pleural effusion. Electronically Signed: Anthony Dupree MD at 8:34 EDT , Assessment & Plan Assessment/Plan (1) Hypoxemia: (2) COVID-19: (3) Fall: PLAN: Plan Acute hypoxia secondary to COVID-19 pneumonia -Typically does not require oxygen at baseline and now on 2 L -Wean as able -Desatted into the 80s on room air -Decadron initiated in the emergency department we will continue 6 mg daily x9 more days -Start remdesivir with loading dose and daily dose x5 days -Will check daily CBC and liver functions -Pulmonary toilet if patient able to follow commands enough to perform incentivespirometry and Acapella -No current concern for superimposed bacterial pneumonia but will monitor -Once patient is back on room air should be able to discharge back to custodial--> they are unable to accommodate oxygen Falls -Suspect weakness due to COVID-19 infection -Consult PT/OT Chronic hyponatremia -Current sodium appears to be within baseline -We will monitor the sodium can drop with acute COVID-19 infection Seizure disorder -Continue home Keppra -Continue home phenobarbital Schizophrenia -Continue home risperidone -Patient is nonverbal at baseline HTN/HPL -Continue home atorvastatin -Continue home Toprol DM-2 -Hold home metformin -Start sliding scale -Accu-Cheks as ordered Constipation -Appears to be chronic -Continue home medication BPH -Continue home Flomax Vitamin B12 deficiency -Continue supplementation Obesity -BMI 33.2 -Recommend weight loss next-complicates treatment, prognosis, outcomes DVT prophylaxis -Enoxaparin 40 daily CODE STATUS -Verifying with guardian Charges/Coding Visit Charges Inpatient E&M: 98527 Init Hosp L2 11/04/22 0904 <Electronically signed by Alice Mckeon DO> Cosigner Signature (if applicable): CC: Dr. Alice Mckeon DO; Dr. Dean Felipe MD~ Signed [facility] Work Phone: Reason for referral (narrative)No reason for referral information available[facility] Work Phone: Advance Directives No Advanced Directives Records Found Advance Directive Response Recorded Date/ Time Living Will No July 16, 2016 8:19am Power of Flash Welding Machine Operator No July 16 8:19am Advance Directive Response Recorded Date/ Time Living Will No July 27, 2021 1: 24pm Power of Flash Welding Machine Operator No July 27, 2021 1:24pm Advance Directive Response Recorded Date/ Time Living Will No July 27, 2021 12 :24pm Power of Flash Welding Machine Operator No July 27, 2021 12:24pm Advance Directive Response Recorded Date/ Time Name of Medical Power of Flash Welding Machine Operator Kaylee malachi rock November 04, 2022 7:33am Living Will No November 04 7:33am Power of Flash Welding Machine Operator Yes November 04 023 7:33am Advance Directive Response Recorded Date/ Time Name of Medical Power of Flash Welding Machine Operator chris rock November 04, 2022 10:39am Living Will No November 04 10:39am Power of Flash Welding Machine Operator Yes November 04 10:39am Advance Directive Response Recorded Date/ Time Living Will No November 04 9:39am Power of Flash Welding Machine Operator Yes November 04 9:39am Advance Directive Response Recorded Date/ Time Living Will No November 04 10:39am Power of Flash Welding Machine Operator Yes November 04 10:39am Advance Directive Response Recorded Date/ Time Living Will No November 04 10:39am Power of Flash Welding Machine Operator Yes November 04 10:39am Living Will No May 22 8:38pm Power of Flash Welding Machine Operator No May 22, 2024 8:38pm Advance Directive Response Recorded Date/ Time Living Will No November 04 10:39am Do you have a Healthcare Power of Flash Welding Machine Operator? 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 No May 22, 2024 8:38pm Chief Complaint and Reason for Visit Chief Complaint 6 M FU NEED ORDER Reason for Visit Epilepsy, unspecifie d, not intractable, without status epilepticus Vitamin B12 deficiency Vitamin D insufficiency Chief Complaint 2 ORDERING DOCTORS Chief Complaint HYPOXIA,/COVID PNA FALL HYPOXIA,/COVID PNA 6 M FU E ORDERS Reason for Visit COVID-19 Fall Hypoxemia Epilepsy, unspecified, not intractable, without status epilepticus Vitamin B12 deficiency Vitamin D insufficiency Chief Complaint 6 M FU E ORDERS Reason for Visit Epilepsy, unspecifie d, not intractable, without status epilepticus Vitamin B12 deficiency Vitamin D insufficiency Chief Complaint Admit Date L HIP PAIN, FALL May 22, 2024 7:19pm 6 M FU May 28, 2024 9:16 am E-ORDER May 29, 2024 3:46 pm Reason for Visit Admit Date Epilepsy, unspecified, not i ntractable, without status epilepticus May 28, 2024 9:16am Vitamin B12 deficiency May 28, 2024 9 :16am Vitamin D insufficiency May 28, 2024 9:16am Chief Complaint Admit Date L HIP PAIN, FALL May 22, 2024 7:19pm 6 M FU May 28, 2024 9:16 am E-ORDER May 29, 2024 3:46 pm EORDER June 18, 2024 7:1 1am Chief Complaint Admit Date EORDERS July 15, 2024 8:0 5am LAB AND URINE October 15, 2024 7:41 am Chief Complaint Admit Date LAB AND URINE October 15, 2024 7:41 am 6 M FU November 26, 2024 10:31am Reason for Visit Admit Date Epilepsy, unspecified, not i ntractable, without status epilepticus November 26, 2024 10:31am Vitamin B12 deficiency November 26 10:31am Vitamin D insufficiency November 26 10:31am Summary Purpose Family History No Family History Records Found Additional Source Comments Goals (unrecognized section and content) Goals may be documented in a n alternate sectionGoals may be documented in an alternate sectionGoals may be documented in an alternate sectionGoals may be documented in an alternate sectionGoals may be documented in an alternate sectionGoals may be documented in an alternate sectionGoals may be documented in an alternate sectionGoals may be documented in an alternate sectionGoals may be documented in an alternate sectionGoals may be documented in an alternate sectionGoals may be documented in an alternate sectionGoals may be documented in an alternate sectionGoals may be documented in an alternate sectionGoals may be documented in an alternate section Care Teams (unrecognized sec tion and content) Team Status: Active Member Role Status Dates Dr. Dean Felipe MD Family Provider Active Dr. Dean Felipe MD Primary Care Provider Active Team Status: Inactive Member Role Status Dates Dr. Dean Felipe MD Primary Care Provider Active Dr. Vini Feliicano MD Attending Provider, Referring Provider Active Team Status: Inactive Member Role Status Dates Dr. Dean Felipe MD Primary Care Provider, Attending Provider Active Team Status: Active Member Role Status Dates Dr. Dean Felipe MD Primary Care Provider Active Dr. Jefferson Lazar MD Emergency Provider Active Dr. Alice Mckeon DO Attending Provider Active Team Status: Active Member Role Status Dates Dr. Dean Felipe MD Primary Care Provider Active Dr. Jefferson Lazar MD Emergency Provider Active Dr. Alice Mckeon DO Admit Provider, Attending Provide r Active Team Status: Active Member Role Status Dates Dr. Dean Felipe MD Primary Care Provider Active Dr. Jefferson Lazar MD Emergency Provider Active Dr. Alice Mckeon DO Admit Provider, Att ending Provider, Other Provider Active Team Status: Inactive Member Role Status Dates Dr. Dean Felipe MD Primary Care Provider Active Dr. Jefferson Lazar MD Emergency Provider Active Dr. Alice Mckeon DO Admit Provider, Attending Provide r Active Team Status: Inactive Member Role Status Dates Dr. Dean Felipe MD Primary Care Provider, Referring Provider Active Dr. Vini Feliciano MD Attending Provider Active Team Status: Active Member Role Status Dates Eddi Lynn MD Primary Care Provider Active Team Status: Inactive Member Role Status Dates Dr. Dean Felipe MD Primary Care Provider Active Start: May 22, 2024 End: May 22, 2024 Dr. Chet Grover MD Attending Provider Active Sta rt: May 22, 2024 End: May 22, 2024 Dr. Chet Grover MD Emergency Provider Active Sta rt: May 22, 2024 End: May 22, 2024 Team Status: Inactive Member Role Status Dates Dr. Dean Felipe MD Primary Care Provider Active Start: May 28, 2024 End: May 28, 2024 Dr. Dean Felipe MD Referring Provider Active Start: May 28, 2024 End: May 28, 2024 Dr. Vini Feliciano MD Attending Provider Active Start: May 28, 2024 End: May 28, 2024 Team Status: Inactive Member Role Status Lupillo Lynn MD Primary Care Provider Active St art: May 29, 2024 End: May 29, 2024 Eddi Lynn MD Attending Provider Active Start : May 29, 2024 End: May 29, 2024 Eddi Lynn MD Referring Provider Active Start : May 29, 2024 End: May 29, 2024 Team Status: Inactive Member Role Status Lupillo Lynn MD Primary Care Provider Active St art: June 18, 2024 End: June 18, 2024 Dr. Vini Feliciano MD Attending Provider Active Start: June 18, 2024 End: June 18, 2024 Dr. Vini Feliciano MD Referring Provider Active Start: June 18, 2024 End: June 18, 2024 Team Status: Active Member Role/Relationship Status Lupillo Lynn MD Primary Care Provider Active Team Status: Inactive Member Role/Relationship Status Lupillo Lynn MD Primary Care Provider Active St art: July 15, 2024 End: July 15, 2024 Eddi Lynn MD Attending Provider Active Start : July 15, 2024 End: July 15, 2024 Eddi Lynn MD Referring Provider Active Start : July 15, 2024 End: July 15, 2024 Team Status: Inactive Member Role/Relationship Status Dates Eddi Lynn MD Primary Care Provider Active St art: October 15, 2024 End: October 15, 2024 Aydee Willams OFFSET ASSISTANT PRESS OPERATOR, OFFSET ASSISTANT PRESS OPERATOR-C Attending Provider Active Start: October 15, 2024 End: October 15, 2024 Aydee Willams NP, OFFSET ASSISTANT PRESS OPERATOR-C Referring Provider Active Start: October 15, 2024 End: October 15, 2024 Team Status: Inactive Member Role/Relationship Status Dates Eddi Lynn MD Primary Care Provider Active St art: October 15, 2024 End: October 15, 2024 Aydee Willams NP, OFFSET ASSISTANT PRESS OPERATOR-C Attending Provider Active Start: October 15, 2024 End: October 15, 2024 Aydee Willams NP, OFFSET ASSISTANT PRESS OPERATOR-C Referring Provider Active Start: October 15, 2024 End: October 15, 2024 Team Status: Inactive Member Role/Relationship Status Dates Dr. Dean Felipe MD Referring Provider Active Start: November 26, 2024 End: November 26, 2024 Dr. Vini Feliciano MD Attending Provider Active Start: November 26, 2024 End: November 26, 2024 Eddi Lynn MD Primary Care Provider Active St art: November 26, 2024 End: November 26, 2024 (unrecognized sect ion and content) No Status Records Found INFORMATION SOURCE (unrecogn ized section and content) DATE CREATED AUTHOR 11/28/2024 [facility] FOR RECORDS PERTAINING TO PATIENTS WHO ARE OR HAVE BEEN ENROLLED IN A CHEMICAL DEPENDENCY/SUBSTANCEABUSE PROGRAM, SOME INFORMATION MAY BE OMITTED. This clinical summary was aggregated from multiple sources. Caution should be exercised in using it in the provision of clinical care. This summary normalizes information from multiple sources, and as a consequence, information in this document may materially change the coding, format and clinical context of patient data. In addition, data may be omitted in some cases. CLINICAL DECISIONS SHOULD BE BASED ON THE PRIMARY CLINICAL RECORDS. [facility] [employer] provides no warranty or guarantee of the accuracy or completeness of information in this document.
[2024-12-19 14:02] VITALS: BP 185/73; PULSE 90; RESP 20; O2SAT 96
--- NOTE | 2024-12-19 14:03 | EX.ED.DYSGE1 ---
HPI History of Present Illness Chief Complaint: Hypertension Informant: mental health staff Narrative Narrative: Patient is a 69-year-old male with history of newly diagnosed hypertension, diabetes mellitus, schizophrenia and developmental delay (minimally verbal at baseline) presenting with elevated blood pressure. No acute complaints. Was not having elevated blood pressure last week (blood pressures 210/102 100/110.) workshop recommend he see his primary care doctor. He was started on Norvasc 5 mg. They have been checking his blood pressure daily until he follows up with his primary care doctor. His blood pressure was noted to be elevated today (180s) however he has been acting normally. No complaints. No report of any fevers, headaches, vomiting or change in urine output. Was sent in for recommendation primary care doctor for further evaluation. [facility] Medical History (Updated 12/19/24 @ 16:[address] Lory Wolff, DO) Developmental non-verbal disorder Vitamin B12 deficiency Epilepsy, unspecified, not intractable, without status epilepticus Schizophrenia Seizure disorder Hyperlipidemia HTN (hypertension) Diabetes mellitus, type II Home Medications ?Medication ?Instructions ?Recorded ?Last Taken ?Type loratadine 10 mg tablet 10 mg PO DAILY PRN allergies 07/16/16 Unknown History omega 3-imd-dkt-fish oil 300 1 ea PO BID 07/16/16 Unknown History mg-1,000 mg capsule risperidone 3 mg tablet 3 mg PO QHS 07/16/16 Unknown History atorvastatin 40 mg tablet 40 mg PO QHS 11/27/19 Unknown History metformin 1,000 mg tablet 1,000 mg PO BID 11/27/19 Unknown History fluticasone propionate 50 1 spray intranasal DAILY 12/02/19 Unknown History mcg/actuation nasal spray,suspension polyethylene glycol 3350 17 gram 17 g PO BID 12/02/19 Unknown History oral powder packet tamsulosin 0.4 mg capsule 0.4 mg PO DAILY 12/02/19 Unknown History levothyroxine 50 mcg tablet 50 mcg PO QDAY 11/28/23 Unknown History cholecalciferol (vitamin D3) 1,250 1,250 mcg PO QMONTH #1 cap 05/28/24 Unknown Rx mcg (50,000 unit) capsule mecobalamin (vitamin B12) 1,000 1,000 mcg PO DAILY #30 tabs 05/28/24 Unknown Rx mcg chewable tablet (B12 Active) chlorhexidine gluconate 0.12 % 15 ml buccal BID 11/26/24 Unknown History mouthwash levetiracetam 750 mg tablet 1,500 mg (2 x 750 mg) PO BID #120 11/26/24 Unknown Rx tabs olmesartan 40 mg tablet 40 mg PO QAM #30 tabs 11/26/24 Unknown Rx phenobarbital 60 mg tablet 120 mg (2 x 60 mg) PO QHS #56 tabs 11/26/24 Unknown Rx amlodipine 10 mg tablet (Norvasc) 10 mg PO DAILY #30 tabs 12/19/24 Unknown Rx Allergy/AdvReac Type Severity Reaction Status Date / Time No Known Allergies Allergy Verified 11/26/24 10:35 Surgical History No history of previous surgery Social History housing: other details: correction Smoking Status: Never smoker Electronic Cigarette Use: not used second hand exposure: No alcohol intake: never substance use type: does not use seatbelt use: always ROS ROS ED ROS Narrative Review systems limited secondary to patient's mental status at baseline, given by healthcare aide Constitutional Constitutional ED: Denies chills or fever(s) Respiratory/Chest Respiratory/Chest: Denies cough or dyspnea Gastrointestinal Gastrointestinal: Denies vomiting Neurologic Neurologic: Denies headache(s) or weakness Hematologic/Lymphatic Hematologic/Lymphatic: Denies easy bleeding or easy bruising EXAM Physical Exam Const Vital Signs: 12/19/24 15:44 12/19/24 16:28 Temperature 97.5 F L Pulse Rate 74 77 Respiratory Rate 18 14 Blood Pressure 179/81 H 167/84 H Blood Pressure Mean 113 111 Pulse Ox 97 96 Oxygen Delivery Method Room Air Positive well nourished and well developed General Appearance ED: well developed and NAD HEENT Reports moist mucous membranes Eyes PERRL Neck supple and no JVD Chest Wall inspection of chest normal Resp normal respiratory effort and clear to auscultation bilaterally Cardio regular rate and regular rhythm GI normal to inspection, nondistended, normoactive bowel sounds and non-tender Auscultation: normoactive bowel sounds Palpation: soft; Negative for tender or guarding Extremity General Extremety ED: Negative for edema General Extremity: Negative for edema Neuro CN's II-XII intact bilaterally and no sensory deficits noted Neuro Narrative: Normal gait Sensorium / Orientation: alert Motor Exam: strength 5/5 throughout; Negative for general weakness Psych mental status grossly normal Skin no rashes or lesions noted MDM MDM MDM Narrative Medical decision making narrative: Patient evaluated for elevated blood pressure. Started on Norvasc 5 mg's last week and residential has been checking his blood pressure regularly however it was elevated today. He did have his Norvasc 5 mg. They called the PCP office who recommend he come to the ER. Differential includes poorly controlled hypertension, accelerated hypertension, PARKER and intracranial hemorrhage. Patient is asymptomatic at this time and per [employer] group leader he is at his baseline and acting normally. Normal appetite exodus ate lunch prior to coming in. No focal neurologic deficits. As he is a poor historian I will obtain CT of the brain to ensure there is no signs of any acute intracranial hemorrhage causing his elevated blood pressure. I will also check a BMP and urinalysis looking for signs of endorgan damage associated with elevated blood pressure (specifically PARKER and proteinuria). Workup is normal. Patient is given additional dose of Norvasc with improvement of blood pressure. Suspect this is asymptomatic hypertension at this point. Is given a prescription for 10 mg Norvasc and encouraged to continue taking blood pressure log and follow-up with family medicine as previously's planned. correction is agreeable to plan of care. Patient discharged home in stable condition. Blood pressure downtrending in the emergency room. Final blood pressure 167/84 in the emergency room. This is appropriate where he should be so he does not have a sudden extreme drop in blood pressure eliciting any hypotensive symptoms Lab Data Attestation: I reviewed the patient's lab results. Labs: Laboratory Results - last 24 hr 12/19/24 12/19/24 14:12 15:42 Sodium 133 Potassium 4.2 Chloride 97 L Carbon Dioxide 22.4 Anion Gap 14 BUN 12 Creatinine 0.81 Estim Creat Clear Calc 98.76 Est GFR (MDRD) Non-Af 95 BUN/Creatinine Ratio 15.0 Glucose 197 H Calcium 8.8 Urine Color Straw Urine Clarity Clear Urine pH 6.5 Ur Specific Freedom 1.010 Urine Protein Negative Urine Glucose (UA) 250 H Urine Ketones Negative Urine Occult Blood Negative Urine Nitrite Negative Urine Bilirubin Negative Urine Urobilinogen Normal Ur Leukocyte Esterase Negative Urine RBC 0-5 SEEN Urine WBC 0-5 SEEN Ur Squamous Epith Cells 0-5 SEEN Urine Bacteria 0 SEEN Urine Mucus 0 SEEN Radiography Diagnostic Testing: Clinical Impression(s) from Imaging Studies Brain CT 12/19/24 14:20 IMPRESSION: No acute intracranial abnormality. Reading Location: [facility] Discharge Plan Triage Chief Complaint: Hypertension ED Provider: Lory Wolff Dx/Rx/DC Orders Clinical Impression: HTN (hypertension) Instructions: ED Hypertension, Established Prescriptions: New amlodipine [Norvasc] 10 mg tablet 10 mg PO DAILY Qty: 30 0RF No Action metformin 1,000 mg tablet 1,000 mg PO BID atorvastatin 40 mg tablet 40 mg PO QHS polyethylene glycol 3350 17 gram powder in packet 17 g PO BID fluticasone propionate 50 mcg/actuation spray,suspension 1 spray INTRANASAL DAILY Rx Instructions: administer into each nostril tamsulosin 0.4 mg capsule 0.4 mg PO DAILY chlorhexidine gluconate 0.12 % mouthwash 15 ml BUCCAL BID levothyroxine 50 mcg tablet 50 mcg PO QDAY cholecalciferol (vitamin D3) 1,250 mcg (50,000 unit) capsule 1,250 mcg PO QMONTH Qty: 1 7RF B12 Active 1,000 mcg tablet,chewable 1,000 mcg PO DAILY Qty: 30 7RF olmesartan 40 mg tablet 40 mg PO QAM Qty: 30 6RF phenobarbital 60 mg tablet 120 mg PO QHS Qty: 56 5RF levetiracetam 750 mg tablet 1,500 mg PO BID Qty: 120 7RF risperidone 3 MG tablet 3 mg PO QHS loratadine 10 MG tablet 10 mg PO DAILY PRN omega 2-wgh-sgs-fish oil 1 EACH capsule 1 ea PO BID Primary Care Provider: Eddi Lynn Referrals: Eddi Lynn MD [Primary Care Provider, Family Practice] Activity Restrictions/Additional Instructions: No findings consistent with hypertensive emergency. Will increase your Norvasc to 10 mg daily from 5 mg. He was given extra dose today. Please continue to take blood pressure log and follow-up with primary care doctor next week Print Language: Portuguese Disposition Disposition: Home, Self Care Discharge Date/Time: 12/19/24 16:42
--- NOTE | 2024-12-19 14:20 | CT_ITS ---
PROCEDURE: BRAIN/HEAD WITHOUT CONTRAST 12/19/2024 REASON FOR EXAM: HYPERTENSION TECHNIQUE: Procedure Code: CTBR Modality: CT Procedure: BRAIN/HEAD WITHOUT CONTRAST Coronal and Sagittal reconstruction series were provided. One or more dose reduction techniques were used (e.g., Automated exposure control, adjustment of the mA and/or kV according to patient size, use of iterative reconstruction technique. RADIATION DOSE SUMMARY: CTDlvol: 47.06 mGy DLP: 943.26 mGycm COMPARISON: MRI BRAIN w/o + w/ Contrast, 12/24/2019. FINDINGS: BRAIN: No acute intraparenchymal hemorrhage. No mass lesion. No CT evidence for acute territorial infarct. No midline shift or extra-axial collection. Mild periventricular white matter low attenuation, likely microvascular ischemic changes. VENTRICLES: No hydrocephalus. ORBITS: Intraocular lens implants bilaterally. The orbits are otherwise unremarkable. SINUSES AND MASTOIDS: Bilateral maxillary sinus retention cysts/polyps again seen. Mild right sphenoid and bilateral ethmoid sinus mucosal thickening. The mastoid air cells are clear. SOFT TISSUES: No acute abnormality seen. BONES: No acute osseous abnormality seen. OTHER: Carotid siphon calcification bilaterally. Soft tissue density within the external auditory canals bilaterally, likely cerumen. CT/Brain/Head without Contrast IMPRESSION: No acute intracranial abnormality. Reading Location: [id number]
--- NOTE | 2024-12-19 14:34 | ED.RN ---
attempted to call the phone number to obtyain consent to treat with no answer two times. message left for them to call back.
[2024-12-19 14:39] LABS: Hematocrit 39.5 % (40-54); Hemoglobin 13.6 g/dL (13.0-16.5); Immature Granulocytes Count 0.040 X10^3/uL (0.0-0.0); Mean Corp Hgb Conc 34.4 g/dL (32-36); Mean Corpuscular Volume 86.6 fL (80-94); Mean Platelet Vol. 9.4 fl (6.2-12.0); NRBC Flagged by Analyzer 0 % (0-5); Platelet Count 288 K/mm3 (150-450); RBC Distribution Width CV 12.2 % (11.6-14.6); RBC Distribution Width SD 38.7 fl (35.1-43.9); Red Blood Count 4.56 M/mm3 (4.6-6.2); White Blood Count 10.2 K/mm3 (4.4-11.0)
[2024-12-19 15:20] LABS: Anion Gap 14 (5-15); Calcium,Total 8.8 mg/dL (7.6-11.0); Carbon Dioxide 22.4 mmol/L (21.0-32.0); Chloride 97 mmol/L (98-108); Estimated Creatinine Clearance 98.76 ml/min (50-250); Glucose 197 mg/dL (70-99); Potassium 4.2 mmol/L (3.3-5.1)
[2024-12-19 15:27] LABS: BUN 12 mg/dL (4-19); BUN/Creat Ratio 15.0 RATIO (10-20)
[2024-12-19 15:44] VITALS: BP 179/81; PULSE 74; RESP 18; O2SAT 97
[2024-12-19 15:48] LABS: Mucous, Urine 0 SEEN /hpf (<or=2+)
[2024-12-19 16:28] VITALS: BP 167/84; PULSE 77; RESP 14; TEMP 36.4; O2SAT 96
[2024-12-19 16:36] LABS: Color, Urine Straw (Yellow); Glucose, Dipstick 250 mg/dl (Normal); Ketone-Dipstick Negative (Negative); Leukocyte Esterase-Dipstick Negative /ul (Negative); Nitrite-Dipstick Negative (Negative); Occult Blood-Urine Negative /ul (Negative); Protein-Dipstick Negative (Negative); Specific Gravity, Urine 1.010 (1.002-1.030); Urine Bilirubin Dipstick Negative (Negative)
[2024-12-19 18:11] LABS: Red Blood Cells-Urine 0-5 SEEN /hpf (0-5); Squamous Epithelial Cells - UA 0-5 SEEN /hpf (0-5)
== END 2024-12-19 16:42 | disposition home or self-care (01) ==
PROVIDERS: Emergency Provider Emergency Medicine; PCP Family Medicine; Visit Provider Emergency Medicine
DX: I10 Essential (primary) hypertension (principal); F20.9 Schizophrenia, unspecified; E11.9 Type 2 diabetes mellitus without complications; F80.9 Developmental disorder of speech and language, unspecified; E78.5 Hyperlipidemia, unspecified; Z79.84 Long term (current) use of oral hypoglycemic drugs; Z79.899 Other long term (current) drug therapy
CPT/HCPCS: 70450; 80048; 81001; 85025; 99285

== ENCOUNTER 2024-12-22 18:48 | Emergency (ER) | payer MEDICARE, MEDICAID, SELFPAY ==
[2024-12-22 18:52] VITALS: BP 182/101; PULSE 82; RESP 20; TEMP 36.6; O2SAT 98; BMI 34.9
--- NOTE | 2024-12-22 19:50 | EX.ED.DYSGE1 ---
HPI History of Present Illness Chief Complaint: Hypertension Detail of Chief Complaint: Patient presents with elevated blood pressure. He repeats what is asked of Informant: other (Attendee from care home) Onset/Context/Timing Onset: Today (Apparently had elevated blood pressure readings at the facility.) Context: - (Unknown) Timing: - (Unknown) Quality: Blood pressure was elevated Current Severity: Mild Maximum Severity: Moderate Worsened by: Nothing Relieved by: Was not given anything Associated Symptoms Associated Symptoms: Unable to determine Narrative Narrative: Patient is a 69-year-old male. He does have a history of hypertension. He is presently on amlodipine 10 mg daily. He is on no other antihypertensive meds. He was seen 3 days ago. He had blood work at that time that revealed no evidence of endorgan dysfunction. Since he is not able to communicate no if he has any symptoms. Prior similar symptoms: No Recent Illness/Hospitalization: Yes [facility] Medical History Developmental non-verbal disorder Vitamin B12 deficiency Epilepsy, unspecified, not intractable, without status epilepticus Schizophrenia Seizure disorder Hyperlipidemia HTN (hypertension) Diabetes mellitus, type II Home Medications Medication Instructions Recorded Last Taken Type loratadine 10 mg tablet 10 mg PO DAILY allergies 07/16/16 Unknown History omega 4-dqo-flu-fish oil 300 1 ea PO BID 07/16/16 Unknown History mg-1,000 mg capsule risperidone 3 mg tablet 3 mg PO QHS 07/16/16 Unknown History atorvastatin 40 mg tablet 40 mg PO QHS 11/27/19 Unknown History metformin 1,000 mg tablet 1,000 mg PO BID 11/27/19 Unknown History fluticasone propionate 50 1 spray intranasal QHS 12/02/19 Unknown History mcg/actuation nasal spray,suspension polyethylene glycol 3350 17 gram 17 g PO BID 12/02/19 Unknown History oral powder packet tamsulosin 0.4 mg capsule 0.4 mg PO DAILY 12/02/19 Unknown History levothyroxine 50 mcg tablet 50 mcg PO QDAY 11/28/23 Unknown History cholecalciferol (vitamin D3) 1,250 1,250 mcg PO QMONTH #1 cap 05/28/24 Unknown Rx mcg (50,000 unit) capsule mecobalamin (vitamin B12) 1,000 1,000 mcg PO DAILY #30 tabs 05/28/24 Unknown Rx mcg chewable tablet (B12 Active) chlorhexidine gluconate 0.12 % 15 ml buccal BID 11/26/24 Unknown History mouthwash olmesartan 40 mg tablet 40 mg PO QAM #30 tabs 11/26/24 Unknown Rx phenobarbital 60 mg tablet 120 mg (2 x 60 mg) PO QHS #56 tabs 11/26/24 Unknown Rx amlodipine 10 mg tablet (Norvasc) 10 mg PO DAILY #30 tabs 12/19/24 Unknown Rx beta carotene 30 mg capsule 30 mg PO DAILY 12/22/24 Unknown History hydrochlorothiazide 12.5 mg tablet 12.5 mg PO .QAM #30 tabs 12/22/24 Unknown Rx levetiracetam 1,000 mg tablet 1,000 mg PO BID 12/22/24 Unknown History Allergy/AdvReac Type Severity Reaction Status Date / Time No Known Allergies Allergy Verified 11/26/24 10:35 Surgical History No history of previous surgery Social History housing: other details: assisted Smoking Status: Never smoker Electronic Cigarette Use: not used second hand exposure: No alcohol intake: never substance use type: does not use seatbelt use: always ROS ROS ED Review of Systems ROS Unobtainable: due to mental status EXAM Physical Exam Const Vital Signs: 12/22/24 18:52 12/22/24 18:58 Temperature 97.8 F Temperature Source Oral Pulse Rate 82 Respiratory Rate 20 H Respiratory Effort Normal Respiratory Pattern Normal Blood Pressure 182/101 H Blood Pressure Mean 128 Pulse Ox 98 Oxygen Delivery Method Room Air Positive well nourished and well developed General Appearance ED: well developed, NAD and pallor; Negative for cyanotic or diaphoretic HEENT Reports moist mucous membranes HEENT Narrative: Head is atraumatic no cephalic. Ears normal. Nares patent. Posterior pharynx no erythema or exudate. Uvula midline. No deviation tongue protrusion. Eyes PERRL and EOMs intact bilaterally Eyes Narrative: There is no nystagmus. General Eye ED: Negative for pale conjunctiva or scleral icterus Neck no lymphadenopathy, supple and no JVD Chest Wall inspection of chest normal and palpation of chest normal Resp normal respiratory effort and clear to auscultation bilaterally Cardio regular rate, regular rhythm, S1 normal heart sound, S2 normal heart sound and no murmurs GI normal to inspection, nondistended, normoactive bowel sounds, non-tender and no masses; Negative for non-distended or hepatosplenomegaly Palpation: soft Extremity normal to inspection General Extremety ED: Negative for edema or tenderness General Extremity: Negative for edema Neuro Neuro Narrative: Follows simple commands as far as raising his arms. Does finger-nose to finger. Brachialis, bicep, tricep, patella and ankle reflex are 1-2+ and symmetric. He has no clonus Babinski sign. He is at his baseline according to the attendant. Motor strength in my opinion is 5/5. He does have perception of light touch in all extremities. Psych Psych Narrative: Pleasant 69-year-old male appears in no distress Skin no rashes or lesions noted, no wounds and skin turgor normal General Skin Exam: pallor; Negative for elasticity normal or jaundice MDM MDM MDM Narrative Medical decision making narrative: Since patient had blood work 3 days ago and his renal function was normal. He had no proteinuria or hematuria and his blood pressure is slightly elevated not requiring emergent therapy will treat with hydrochlorothiazide and add hydrochlorothiazide to his present regimen. History & Record Review Additional record(s) reviewed:: Prior ED visit and Prior labs Discharge Plan Triage Chief Complaint: Hypertension ED Provider: Chet Grover Dx/Rx/DC Orders Clinical Impression: Accelerated essential hypertension, Epilepsy, unspecified, not intractable, without status epilepticus, Cognitive developmental delay, Autism Instructions: ED Hypertension, Established Prescriptions: New hydrochlorothiazide 12.5 mg tablet 12.5 mg PO .QAM Qty: 30 0RF No Action metformin 1,000 mg tablet 1,000 mg PO BID atorvastatin 40 mg tablet 40 mg PO QHS polyethylene glycol 3350 17 gram powder in packet 17 g PO BID fluticasone propionate 50 mcg/actuation spray,suspension 1 spray INTRANASAL QHS Rx Instructions: administer into each nostril tamsulosin 0.4 mg capsule 0.4 mg PO DAILY chlorhexidine gluconate 0.12 % mouthwash 15 ml BUCCAL BID levothyroxine 50 mcg tablet 50 mcg PO QDAY cholecalciferol (vitamin D3) 1,250 mcg (50,000 unit) capsule 1,250 mcg PO QMONTH Qty: 1 7RF B12 Active 1,000 mcg tablet,chewable 1,000 mcg PO DAILY Qty: 30 7RF olmesartan 40 mg tablet 40 mg PO QAM Qty: 30 6RF phenobarbital 60 mg tablet 120 mg PO QHS Qty: 56 5RF risperidone 3 MG tablet 3 mg PO QHS loratadine 10 MG tablet 10 mg PO DAILY omega 1-ckv-hjc-fish oil 1 EACH capsule 1 ea PO BID beta carotene 30 mg capsule 30 mg PO DAILY levetiracetam 1,000 mg tablet 1,000 mg PO BID amlodipine [Norvasc] 10 mg tablet 10 mg PO DAILY Qty: 30 0RF Primary Care Provider: Eddi Lynn Referrals: Eddi Lynn MD [Primary Care Provider, Family Practice] - 1-2 Weeks Activity Restrictions/Additional Instructions: Need to have blood pressure checked in 1 to 2 weeks. Print Language: Occitan Disposition Disposition: Home, Self Care
[2024-12-22 20:26] VITALS: BP 186/113; PULSE 75; RESP 20; TEMP 36.7; O2SAT 98
== END 2024-12-22 20:33 | disposition home or self-care (01) ==
PROVIDERS: Emergency Provider Emergency Medicine; PCP Family Medicine; Visit Provider Emergency Medicine
DX: I10 Essential (primary) hypertension (principal); G40.909 Epilepsy, unspecified, not intractable, without status epilepticus; E11.9 Type 2 diabetes mellitus without complications; F84.0 Autistic disorder; F80.89 Other developmental disorders of speech and language; Z79.84 Long term (current) use of oral hypoglycemic drugs; Z79.899 Other long term (current) drug therapy
CPT/HCPCS: 99284

== ENCOUNTER → 2024-12-25 | Outpatient (CLI) | payer MEDICARE, MEDICAID, SELFPAY | END | disposition home or self-care (01) | LOC: MFPLAB 11:47 | PROVIDERS: PCP Family Medicine; Referring Provider Family Medicine; Visit Provider Family Medicine | DX: E11.9 Type 2 diabetes mellitus without complications (principal); R30.0 Dysuria; E03.9 Hypothyroidism, unspecified | CPT/HCPCS: 36415; 83036; 84443; 87086; 87088 ==

== ENCOUNTER 2024-12-30 15:47 | Inpatient (IN) | payer MEDICARE, MEDICAID, SELFPAY ==
[2024-12-30] VITALS (14 sets, daily range): BP systolic 158–205; BP diastolic 71–111; PULSE 85–97; RESP 16–20; TEMP 36.4–36.7; O2SAT 95–98; BMI 31.1; BMI 30.9
--- NOTE | 2024-12-30 15:56 | EKG12_ITS ---
Test Reason : Blood Pressure : */* mmHG Vent. Rate : 86 BPM Atrial Rate : 86 BPM P-R Int : 222 ms QRS Dur : 86 ms QT Int : 344 ms P-R-T Axes : 31 35 109 degrees QTcB Int : 411 ms Sinus rhythm with 1st degree A-V block with Premature supraventricular complexes T wave abnormality, consider lateral ischemia Abnormal ECG Confirmed by HERMILA ORMO, KINGSTON ([id number]), news assignment editor ANA PARHAM ([id number]) on 12/31/2024 1:28:20 PM Referred By: SHELDON Confirmed By: KINGSTON CLEANING MD
--- NOTE | 2024-12-30 15:56 | CT_ITS ---
PROCEDURE: BRAIN/HEAD WITHOUT CONTRAST 12/30/2024 REASON FOR EXAM: FALLX2 TECHNIQUE: Procedure Code: CTBR Modality: CT Procedure: BRAIN/HEAD WITHOUT CONTRAST Coronal and Sagittal reconstruction series were provided. One or more dose reduction techniques were used (e.g., Automated exposure control, adjustment of the mA and/or kV according to patient size, use of iterative reconstruction technique. COMPARISON: 12/19/2024. FINDINGS: Mild global parenchymal atrophy. Mild chronic microvascular ischemia. No evidence of acute hemorrhage or infarction. No extra-axial blood or fluid collections. Bilateral maxillary sinus retention cysts. Sphenoid, ethmoid, and frontal sinus mucosal thickening. The mastoid air cells are clear. The calvarial vault and skull base are intact. CT/Brain/Head without Contrast IMPRESSION: No acute intracranial abnormality. Reading Location: [id number]
--- NOTE | 2024-12-30 15:56 | CT_ITS ---
PROCEDURE: SPINE CERVICAL WITHOUT CONTRAS 12/30/2024 REASON FOR EXAM: FALL X 2 TECHNIQUE: Procedure Code: CTSPC Modality: CT Procedure: SPINE CERVICAL WITHOUT CONTRAS Coronal and Sagittal reconstruction series were provided. One or more dose reduction techniques were used (e.g., Automated exposure control, adjustment of the mA and/or kV according to patient size, use of iterative reconstruction technique. COMPARISON: None. FINDINGS: No evidence of acute fracture or dislocation. Moderate degenerative changes of the visualized spine. Normal alignment. Vertebral body heights are maintained. The lung apices are clear. CT/Spine Cervical without Contras IMPRESSION: No acute osseous abnormalities. Spondylosis. Reading Location: [id number]
--- NOTE | 2024-12-30 16:04 | EX.ED.DYSGE1 ---
HPI History of Present Illness Chief Complaint: Fall Narrative Narrative: Patient is a 69-year-old male with a past medical history of nonverbal at baseline, schizophrenia, seizures, hypertension, hypokalemia, type 2 diabetes who presents to the emergency department with a chief complaint of multiple falls today according to EMS. History of present illness is unobtainable from the patient therefore acute care caveat applies. According to them he is currently being treated for UTI however they are unsure what antibiotics he is on. [facility] Medical History Developmental non-verbal disorder Vitamin B12 deficiency Epilepsy, unspecified, not intractable, without status epilepticus Schizophrenia Seizure disorder Hyperlipidemia HTN (hypertension) Diabetes mellitus, type II Home Medications ?Medication ?Instructions ?Recorded ?Last Taken ?Type loratadine 10 mg tablet 10 mg PO DAILY allergies 07/16/16 Unknown History omega [id number] oil 300 1 ea PO BID 07/16/16 Unknown History mg-1,000 mg capsule risperidone 3 mg tablet 3 mg PO QHS 07/16/16 Unknown History atorvastatin 40 mg tablet 40 mg PO QHS 11/27/19 Unknown History metformin 1,000 mg tablet 1,000 mg PO BID 11/27/19 Unknown History fluticasone propionate 50 1 spray intranasal QHS 12/02/19 Unknown History mcg/actuation nasal spray,suspension polyethylene glycol 3350 17 gram 17 g PO BID 12/02/19 Unknown History oral powder packet tamsulosin 0.4 mg capsule 0.4 mg PO DAILY 12/02/19 Unknown History levothyroxine 50 mcg tablet 50 mcg PO QDAY 11/28/23 Unknown History cholecalciferol (vitamin D3) 1,250 1,250 mcg PO QMONTH #1 cap 05/28/24 Unknown Rx mcg (50,000 unit) capsule mecobalamin (vitamin B12) 1,000 1,000 mcg PO DAILY #30 tabs 05/28/24 Unknown Rx mcg chewable tablet (B12 Active) chlorhexidine gluconate 0.12 % 15 ml buccal BID 11/26/24 Unknown History mouthwash olmesartan 40 mg tablet 40 mg PO QAM #30 tabs 11/26/24 Unknown Rx phenobarbital 60 mg tablet 120 mg (2 x 60 mg) PO QHS #56 tabs 11/26/24 Unknown Rx amlodipine 10 mg tablet (Norvasc) 10 mg PO DAILY #30 tabs 12/19/24 Unknown Rx beta carotene 30 mg capsule 30 mg PO DAILY 12/22/24 Unknown History levetiracetam 1,000 mg tablet 1,000 mg PO BID 12/22/24 Unknown History hydrochlorothiazide 25 mg tablet 25 mg PO DAILY 12/30/24 Unknown History Allergy/AdvReac Type Severity Reaction Status Date / Time No Known Allergies Allergy Verified 11/26/24 10:35 Surgical History No history of previous surgery Social History housing: other details: [facility] Smoking Status: Never smoker Electronic Cigarette Use: not used second hand exposure: No alcohol intake: never substance use type: does not use seatbelt use: always ROS ROS ED ROS Narrative Review of systems unobtainable from the patient secondary to him being nonverbal at baseline therefore acute care caveat applies EXAM Physical Exam Narrative Exam Narrative: General: Patient lying in bed rest comfortably does not appear to be acute distress Head: Atraumatic, normocephalic Eyes: PERRL bilaterally, EOMI bilaterally, no conjunctival injection noted Neck: Soft, supple, trachea midline Cardiovascular: Regular rate and rhythm Respiratory: Clear to auscultation bilaterally Abdomen: Soft, nondistended Extremities: Patient moving all extremities on exam Neurological: Patient is at his baseline according to EMS. He was following commands when asked to raise his hands bilaterally he was able to do so. When he is asked to close his eyes he was able to do this as well. Skin: Warm, dry, intact no rashes or lesions noted Const Vital Signs: 12/30/24 15:48 12/30/24 15:52 12/30/24 16:09 Temperature 97.9 F Temperature Source Temporal Pulse Rate 87 Respiratory Rate 17 Respiratory Effort Normal Non-Labored Blood Pressure 158/85 H Blood Pressure Mean 109 Pulse Ox 95 Oxygen Delivery Method Room Air Room Air Room Air 12/30/24 17:08 12/30/24 18:25 12/30/24 19:00 Temperature 97.7 F L 98.1 F 98.1 F Temperature Source Temporal Temporal Oral Pulse Rate 85 86 92 Respiratory Rate 16 19 H 20 H Respiratory Effort Blood Pressure 169/71 H 175/96 H 197/111 H Blood Pressure Mean 103 122 139 Pulse Ox 95 98 97 Oxygen Delivery Method Room Air Room Air Room Air 12/30/24 19:43 12/30/24 20:01 12/30/24 20:16 Temperature 98.1 F 98.1 F Temperature Source Oral Oral Pulse Rate 96 95 97 Respiratory Rate 20 H 20 H 20 H Respiratory Effort Blood Pressure 205/95 H 198/91 H 198/91 H Blood Pressure Mean 131 126 126 Pulse Ox 97 96 97 Oxygen Delivery Method Room Air Room Air Room Air 12/30/24 20:31 12/30/24 20:43 Temperature 98.1 F Temperature Source Oral Pulse Rate 94 91 Respiratory Rate 20 H 18 Respiratory Effort Blood Pressure 196/85 H 196/85 H Blood Pressure Mean 122 122 Pulse Ox 96 96 Oxygen Delivery Method Room Air Room Air MDM MDM MDM Narrative Medical decision making narrative: Patient is a 69-year-old male who presents to the emergency department chief complaint of multiple falls earlier today. On the differential diagnosis includes but not limited to generalized weakness, UTI, intracranial hemorrhage, cervical spine fracture, electrolyte abnormality. Once the workup is obtained and reviewed he will be reevaluated. According to our records here there is no evidence of anticoagulants on his medication list. Patient's CBC was significant for leukocytosis 12,000, he was 13.6, plate count was noted to be 287. Patient sodium was low indicating hyponatremia at 119, potassium normal at 4.1, creatinine was noted be normal at 0.93. Patient has anion gap of 17 with carbon dioxide low at 20.9. Patient glucose was noted to be 105. Patient lactic acid elevated to 5.1, AST and ALT are 5727 respectively. Patient's urinalysis was reviewed which showed negative nitrites negative leukocyte esterase no bacteria noted. Patient CT head brain without contrast showed no acute intracranial abnormalities. Patient CT cervical spine reviewed showed no acute osseous abnormalities. Given the patient's white count lactic acidosis with being treated for UTI although his urine does not suggest this is a UTI we will add a CT abdomen pelvis IV contrast to ensure there is no intra-abdominal pathology currently and then the patient will be admitted to the ICU. Patient has not had any seizures or any reports of seizures therefore at this point in time with his sodium I do not believe he warrants hypertonic saline. At 8:[address] resulted and showed hydroureter bilaterally but suggestive of reflux there is no identifiable source of infection still at this point time. Will discuss case with hospitalist for admission to the ICU. Discussed case with hospitalist Dr. Johnson who accept patient for admission. Critical care time 37 minutes. Lab Data Labs: Laboratory Results - last 24 hr 12/30/24 12/30/24 16:16 16:23 WBC 12.9 H RBC 4.42 L Hgb 13.6 Hct 36.5 L MCV 82.6 MCH 30.8 MCHC 37.3 H RDW Std Deviation 35.8 RDW Coeff of Celi 11.9 Plt Count 287 MPV 8.8 Immature Gran % (Auto) 0.500 Neut % (Auto) 64.2 Lymph % (Auto) 23.5 [place] % (Auto) 10.5 H Eos % (Auto) 0.9 Baso % (Auto) 0.4 Absolute Neuts (auto) 8.3 H Absolute Lymphs (auto) 3.04 Nucleated RBC % 0 PT 13.3 INR 1.0 APTT 23.2 L Sodium 119 L* Potassium 4.1 Chloride 81 L Carbon Dioxide 20.9 L Anion Gap 17 H BUN 12 Creatinine 0.93 Estim Creat Clear Calc 92.33 Est GFR (MDRD) Non-Af 88 BUN/Creatinine Ratio 12.8 Glucose 105 H Lactic Acid 5.1 H* Calcium 9.2 Total Bilirubin 0.36 AST 57 H ALT 27 Alkaline Phosphatase 80 Total Protein 6.9 Albumin 4.5 Globulin 2.4 Albumin/Globulin Ratio 1.8 Urine Color Yellow Urine Clarity Clear Urine pH 6.0 Ur Specific Ona 1.010 Urine Protein 30 H Urine Glucose (UA) 250 H Urine Ketones Negative Urine Occult Blood 25 H Urine Nitrite Negative Urine Bilirubin Negative Urine Urobilinogen Normal Ur Leukocyte Esterase Negative Urine RBC 0-5 SEEN Urine WBC 0 SEEN Ur Squamous Epith Cells 0 SEEN Urine Bacteria 0 SEEN Urine Mucus 0 SEEN Radiography Diagnostic Testing: Clinical Impression(s) from Imaging Studies Brain CT 12/30/24 15:56 IMPRESSION: No acute intracranial abnormality. Reading Location: [address] Cervical Spine CT 12/30/24 15:56 IMPRESSION: No acute osseous abnormalities. Spondylosis. Reading Location: [address] Abdomen/Pelvis CT 12/30/24 18:03 IMPRESSION: Distended urinary bladder with mild hydroureter bilaterally which may reflect reflux. Otherwise no acute intra-abdominal process. Reading Location: [facility] Discharge Plan Dx/Rx/DC Orders Clinical Impression: Fall, Generalized weakness, Hyponatremia, Type 2 diabetes mellitus, History of seizure Disposition Disposition: Acute Care Hospital [facility]
[2024-12-30] MEDS: 0.9% Normal Saline (1000mL) 1,000 ML 999 ML IV ×3 (16:09→18:28)
[2024-12-30 16:26] LABS: Mucous, Urine 0 SEEN /hpf (<or=2+); Squamous Epithelial Cells - UA 0 SEEN /hpf (0-5)
[2024-12-30 16:30] LABS: Hematocrit 36.5 % (40-54); Hemoglobin 13.6 g/dL (13.0-16.5); Immature Granulocytes Count 0.060 X10^3/uL (0.0-0.0); Mean Corp Hgb Conc 37.3 g/dL (32-36); Mean Corpuscular Volume 82.6 fL (80-94); Mean Platelet Vol. 8.8 fl (6.2-12.0); NRBC Flagged by Analyzer 0 % (0-5); Platelet Count 287 K/mm3 (150-450); RBC Distribution Width CV 11.9 % (11.6-14.6); RBC Distribution Width SD 35.8 fl (35.1-43.9); Red Blood Count 4.42 M/mm3 (4.6-6.2); White Blood Count 12.9 K/mm3 (4.4-11.0)
[2024-12-30 16:30] LABS: Color, Urine Yellow (Yellow); Glucose, Dipstick 250 mg/dl (Normal); Ketone-Dipstick Negative (Negative); Leukocyte Esterase-Dipstick Negative /ul (Negative); Nitrite-Dipstick Negative (Negative); Occult Blood-Urine 25 /ul (Negative); Protein-Dipstick 30 mg/dl (Negative); Specific Gravity, Urine 1.010 (1.002-1.030); Urine Bilirubin Dipstick Negative (Negative)
[2024-12-30 16:34] LABS: Red Blood Cells-Urine 0-5 SEEN /hpf (0-5)
[2024-12-30 16:40] LABS: Partial Thromboplast Time 23.2 Seconds (24.1-36.2); Prothrombin Time (Protime)PT. 13.3 SECONDS (11.7-14.9)
[2024-12-30 17:02] LABS: AST(SGOT) 57 U/L (<=37); Alanine Aminotransfer ALT/SGPT 27 U/L (<=46); Albumin, Serum 4.5 g/dL (3.4-4.8); Alkaline Phosphatase 80 U/L (40-129); Anion Gap 17 (5-15); BUN 12 mg/dL (4-19); BUN/Creat Ratio 12.8 RATIO (10-20); Calcium,Total 9.2 mg/dL (7.6-11.0); Carbon Dioxide 20.9 mmol/L (21.0-32.0); Chloride 81 mmol/L (98-108); Estimated Creatinine Clearance 92.33 ml/min (50-250); Globulin 2.4 g/dL (2.2-4.2); Glucose 105 mg/dL (70-99); Potassium 4.1 mmol/L (3.3-5.1)
[2024-12-30] MEDS: Piperacil/Tazobactam 4.5 GM in 0.9% Normal Saline (100mL MB+) 100 ML IV (17:41)
--- NOTE | 2024-12-30 18:03 | CT_ITS ---
PROCEDURE: ABDOMEN/PELVIS W IV CONT ONLY 12/30/2024 REASON FOR EXAM: LACTIC ACIDOSIS, ELEVATED WHITE COUNT TECHNIQUE: Procedure Code: [id number] Modality: CT Procedure: ABDOMEN/PELVIS W IV CONT ONLY Coronal and Sagittal reconstruction series were provided. CONTRAST: 100 mL of Isovue 370 One or more dose reduction techniques were used (e.g., Automated exposure control, adjustment of the mA and/or kV according to patient size, use of iterative reconstruction technique. RADIATION DOSE SUMMARY: DLP: 1436 mGycm COMPARISON: None FINDINGS: Limited sections of the lung bases demonstrate no focal pulmonary mass or consolidations. Bibasilar subsegmental atelectasis. The liver, spleen, pancreas, and both adrenal glands demonstrate no acute findings. Fatty atrophy of pancreas. The gallbladder is unremarkable. The stomach is unremarkable. The small bowel loops are not dilated. The appendix is not clearly identified, although there are no secondary signs of appendicitis. No colonic obstruction. There is no free air or significant free fluid. Distended urinary bladder with mild hydroureter which may reflect reflux. The pelvic structures are intact. There is no solid pelvic mass. No significant lymphadenopathy. The aorta and IVC demonstrate no acute findings. Visualized osseous structures demonstrate no acute abnormality. CT/Abdomen/Pelvis W IV Cont ONLY IMPRESSION: Distended urinary bladder with mild hydroureter bilaterally which may reflect r eflux. Otherwise no acute intra-abdominal process. Reading Location: [id number]
--- NOTE | 2024-12-30 20:11 | ED.RN ---
Pt received 2500 mL of fluid total, ordered by Dr. Stauffer. The third bag scanned in shows 1000 mL given in the MAR. Pt was only given the ordered amount of 2500 mL, unable to change or edit the MAR at this time.
[2024-12-30 20:24] LABS: Reflex Lactate? Y
--- NOTE | 2024-12-30 20:47 | PCM.HP.STD ---
[facility] - General General Date of Admission: 12/30/24 Date of Service: 12/30/24 Chief Complaint: Multiple Falls. HPI Laila ROBLES, is a 69 M with a past medical history of essential hypertension; on amlodipine, olmesartan and hydrochlorothiazide, hyperlipidemia; on atorvastatin, hypothyroidism; on levothyroxine, obesity (class I); with BMI of 31.2 this admission, DM-2; of unknown control on metformin twice daily, history of schizophrenia; with developmental delay causing patient to be poorly verbal at baseline on risperidone nightly, seizure disorder (with absence seizures); on levetiracetam twice daily plus phenobarbital nightly followed by Dr. Feliciano of neurology, history of B12 deficiency, history of vitamin D deficiency, BPH; on tamsulosin, chronic constipation; on polyethylene glycol twice daily, seasonal allergies; on loratadine plus fluticasone nasal spray and recently diagnosed UTI; on unknown antibiotic who presents to [facility] ER after staff at his nursing home noted multiple falls. As indicated above Mr. Robles is not a reliable historian as he is nonverbal at baseline. Therefore, information was gathered from chart, medical staff and computer. According to the records EMS was activated today after the staff at his nursing home noted multiple falls. The ER physician informing the patient is able to follow commands with no reports of seizure activity, significant injury with recent his multiple falls or excessive water intake. In the ER he was noted to have severe Acute Hyponatremia of 119 mmol/L present on admission suspected to be due to Adverse Drug Reaction to hydrochlorothiazide complicated by Leukocytosis of 12.9 K with Lactic Acidosis of 5.1 mmol/L both present on admission concerning for Adverse Drug Reaction to metformin with a corresponding negative urinalysis and head CT without contrast that revealed no acute process, cervical spine CT that showed no acute osseous abnormalities with spondylosis and CT scan of abdomen and pelvis positive for evidence of distended urinary bladder with mild hydroureter bilaterally which may be reflux with no acute intra-abdominal process otherwise compounded by elevated blood pressure of 196/85 mmHg present on admission consistent with Uncontrolled Hypertension in the setting of otherwise unremarkable vital signs and laboratory studies. He was then admitted to the ICU for ongoing care for status is expected to extend beyond 2 midnights. [facility] Medical History (Updated 12/30/24 @ 21:[address] Jorge de Kishore, DO) Developmental non-verbal disorder Vitamin B12 deficiency Epilepsy, unspecified, not intractable, without status epilepticus Schizophrenia Seizure disorder Hyperlipidemia HTN (hypertension) Diabetes mellitus, type II Home Medications ?Medication ?Instructions ?Recorded ?Last Taken ?Type loratadine 10 mg tablet 10 mg PO DAILY allergies 07/16/16 Unknown History omega 3-lvj-pfm-fish oil 300 1 ea PO BID 07/16/16 Unknown History mg-1,000 mg capsule risperidone 3 mg tablet 3 mg PO QHS 07/16/16 Unknown History atorvastatin 40 mg tablet 40 mg PO QHS 11/27/19 Unknown History metformin 1,000 mg tablet 1,000 mg PO BID 11/27/19 Unknown History fluticasone propionate 50 1 spray intranasal QHS 12/02/19 Unknown History mcg/actuation nasal spray,suspension polyethylene glycol 3350 17 gram 17 g PO BID 12/02/19 Unknown History oral powder packet tamsulosin 0.4 mg capsule 0.4 mg PO DAILY 12/02/19 Unknown History levothyroxine 50 mcg tablet 50 mcg PO QDAY 11/28/23 Unknown History cholecalciferol (vitamin D3) 1,250 1,250 mcg PO QMONTH #1 cap 05/28/24 Unknown Rx mcg (50,000 unit) capsule mecobalamin (vitamin B12) 1,000 1,000 mcg PO DAILY #30 tabs 05/28/24 Unknown Rx mcg chewable tablet (B12 Active) chlorhexidine gluconate 0.12 % 15 ml buccal BID 11/26/24 Unknown History mouthwash olmesartan 40 mg tablet 40 mg PO QAM #30 tabs 11/26/24 Unknown Rx phenobarbital 60 mg tablet 120 mg (2 x 60 mg) PO QHS #56 tabs 11/26/24 Unknown Rx amlodipine 10 mg tablet (Norvasc) 10 mg PO DAILY #30 tabs 12/19/24 Unknown Rx beta carotene 30 mg capsule 30 mg PO DAILY 12/22/24 Unknown History levetiracetam 1,000 mg tablet 1,000 mg PO BID 12/22/24 Unknown History hydrochlorothiazide 25 mg tablet 25 mg PO DAILY 12/30/24 Unknown History Allergy/AdvReac Type Severity Reaction Status Date / Time hydrochlorothiazide AdvReac Severe Hyponatremi Verified 12/30/24 21:31 a metformin AdvReac Severe Lactic Verified 12/30/24 21:31 Acidosis Surgical History No history of previous surgery Social History housing: other details: correction Smoking Status: Never smoker Electronic Cigarette Use: not used second hand exposure: No alcohol intake: never substance use type: does not use seatbelt use: always ROS ROS Narrative Full review of systems was not possible due to patient's nonverbal status and developmental delay. Vital Signs Vital Signs Vital Signs: 12/30/24 15:48 12/30/24 15:52 12/30/24 16:09 Temperature 97.9 F Temperature Source Temporal Pulse Rate 87 Respiratory Rate 17 Respiratory Effort Normal Non-Labored Blood Pressure 158/85 H Blood Pressure Mean 109 Pulse Ox 95 Oxygen Delivery Method Room Air Room Air Room Air 12/30/24 17:08 12/30/24 18:25 12/30/24 19:00 Temperature 97.7 F L 98.1 F 98.1 F Temperature Source Temporal Temporal Oral Pulse Rate 85 86 92 Respiratory Rate 16 19 H 20 H Respiratory Effort Blood Pressure 169/71 H 175/96 H 197/111 H Blood Pressure Mean 103 122 139 Pulse Ox 95 98 97 Oxygen Delivery Method Room Air Room Air Room Air 12/30/24 19:43 12/30/24 20:01 12/30/24 20:16 Temperature 98.1 F 98.1 F Temperature Source Oral Oral Pulse Rate 96 95 97 Respiratory Rate 20 H 20 H 20 H Respiratory Effort Blood Pressure 205/95 H 198/91 H 198/91 H Blood Pressure Mean 131 126 126 Pulse Ox 97 96 97 Oxygen Delivery Method Room Air Room Air Room Air 12/30/24 20:31 12/30/24 20:43 Temperature 98.1 F Temperature Source Oral Pulse Rate 94 91 Respiratory Rate 20 H 18 Respiratory Effort Blood Pressure 196/85 H 196/85 H Blood Pressure Mean 122 122 Pulse Ox 96 96 Oxygen Delivery Method Room Air Room Air Weight Weight: 230 lb 2.601 oz Body Mass Index (BMI) 31.1 Physical Exam Const alert Constitutional Narrative: Patient is apparently nonverbal at baseline but is able to follow commands. General Appearance: cooperative HEENT normocephalic, head/scalp atraumatic, hearing grossly normal bilaterally and moist oral mucous membranes Eyes PERRL, EOMs intact bilaterally and conjunctivae normal Neck no lymphadenopathy, supple and no JVD Resp normal respiratory effort, no retractions, no use of accessory muscles and clear to auscultation bilaterally Cardio regular rate and regular rhythm GI normal to inspection, nondistended, normoactive bowel sounds, soft to palpation, non-tender and non-distended GI Narrative: Obese. Extremity normal to inspection and full ROM Skin Skin Narrative: Patient has no evidence of rash, abscess, wounds or jaundice. Neuro CN's II-XII intact bilaterally and moves all extremities Neuro Narrative: Patient is nonverbal at baseline. Sensorium / Orientation: awake and alert Psych affect normal Results Medical Records Data Attestation: I reviewed the patient's medical records Lab / Micro Data Attestation: I reviewed the patient's lab results. 12/30/24 16:16 12/31/24 05:42 Labs: Laboratory Results - last 24 hr 12/30/24 16:16: WBC 12.9 H, RBC 4.42 L, Hgb 13.6, Hct 36.5 L, MCV 82.6, MCH 30.8, MCHC 37.3 H, RDW Std Deviation 35.8, RDW Coeff of Celi 11.9, Plt Count 287, MPV 8.8, Immature Gran % (Auto) 0.500, Neut % (Auto) 64.2, Lymph % (Auto) 23.5, [place] % (Auto) 10.5 H, Eos % (Auto) 0.9, Baso % (Auto) 0.4, Absolute Neuts (auto) 8.3 H, Absolute Lymphs (auto) 3.04, Nucleated RBC % 0, PT 13.3, INR 1.0, APTT 23.2 L, Sodium 119 L*, Potassium 4.1, Chloride 81 L, Carbon Dioxide 20.9 L, Anion Gap 17 H, BUN 12, Creatinine 0.93, Estim Creat Clear Calc 92.33, Est GFR (MDRD) Non-Af 88, BUN/Creatinine Ratio 12.8, Glucose 105 H, Lactic Acid 5.1 H*, Calcium 9.2, Total Bilirubin 0.36, AST 57 H, ALT 27, Alkaline Phosphatase 80, Total Protein 6.9, Albumin 4.5, Globulin 2.4, Albumin/Globulin Ratio 1.8 12/30/24 16:23: Urine Color Yellow, Urine Clarity Clear, Urine pH 6.0, Ur Specific [place] 1.010, Urine Protein 30 H, Urine Glucose (UA) 250 H, Urine Ketones Negative, Urine Occult Blood 25 H, Urine Nitrite Negative, Urine Bilirubin Negative, Urine Urobilinogen Normal, Ur Leukocyte Esterase Negative, Urine RBC 0-5 SEEN, Urine WBC 0 SEEN, Ur Squamous Epith Cells 0 SEEN, Urine Bacteria 0 SEEN, Urine Mucus 0 SEEN Imaging Radiology Impression Brain CT 12/30/24 15:56 IMPRESSION: No acute intracranial abnormality. Reading Location: [address] Cervical Spine CT 12/30/24 15:56 IMPRESSION: No acute osseous abnormalities. Spondylosis. Reading Location: [address] Abdomen/Pelvis CT 12/30/24 18:03 IMPRESSION: Distended urinary bladder with mild hydroureter bilaterally which may reflect reflux. Otherwise no acute intra-abdominal process. Reading Location: [facility] Assessment & Plan Assessment/Plan (1) Acute hyponatremia: (2) Adverse drug reaction: QUALIFIERS: Encounter type: initial encounter Qualified Code(s): T50.905A - Adverse effect of unspecified drugs, medicaments and biological substances, initial encounter (3) Adverse effect of metformin: QUALIFIERS: Encounter type: initial encounter Qualified Code(s): T38.3X5A - Adverse effect of insulin and oral hypoglycemic [antidiabetic] drugs, initial encounter (4) Leukocytosis: QUALIFIERS: Leukocytosis type: unspecified Qualified Code(s): D72.829 - Elevated white blood cell count, unspecified (5) Lactic acidosis: (6) Uncontrolled hypertension: (7) Generalized weakness: (8) Frequent falls: (9) Schizophrenia: QUALIFIERS: Schizophrenia type: unspecified Qualified Code(s): F20.9 - Schizophrenia, unspecified (10) Obesity (BMI 30.0-34.9): (11) BPH with urinary obstruction: (12) Seizure disorder: PLAN: Plan 1. Acute Hyponatremia of 119 mmol/L present on admission - Admit to ICU. Since NS IVF was begun in the ER with patient able to follow commands we will continue with this treatment for now with STAT repeat sodium level pending at this time. If his sodium level remains unchanged or has fallen hypertonic saline will be initiated. Check urine and serum osmolality before treating with IV furosemide. We will check serial BMP's every 4 hours to aim for gradual correction of ~8-10 mmol/L per 24 hours. Finally, we will consult pulmonary/critical care to see this patient on rounds in a.m. for further recommendations without appreciated in advance. 2. Adverse Drug Reaction to hydrochlorothiazide triggering #1 - Stop hydrochlorothiazide and add to list of allergies to prevent recurrence. 3. Leukocytosis of 12.9 K with Lactic Acidosis of 5.1 mmol/L both present on admission concerning for Sepsis but with a corresponding negative urinalysis and no overt signs of infection in the setting of a recently diagnosed UTI on an unknown antibiotic due to suspected Adverse Drug Reaction to metformin complicating #1 & #2 - Stop metformin as it is the suspected cause of his lactic acidosis with dayshift hospitalist to start alternative agent if deemed necessary. Patient was empirically treated with IV piperacillin-tazobactam in ER which will be stopped as there are no signs of infection at this time with patient also not suspected to have sepsis. 4. Uncontrolled Hypertension with an elevated blood pressure of 196/85 mmHg present on admission compounding #1 - #3 - Resume amlodipine and olmesartan plus give furosemide 40 mg IV once in addition to hydralazine IV prn for systolic blood pressure > 160 mmHg. 5. Generalized Weakness with Multiple Falls recently attributable to #1- #4 - PT/OT and Case Management to consult and treat on-rounds in the AM for further recommendations with help appreciated in advance. 6. History of schizophrenia; with developmental delay causing patient to be poorly verbal at baseline on risperidone nightly adding to the medical complexity of #1 - #5 - Continue risperidone as previous. 7. Obesity (class I); with BMI of 31.2 this admission adding to the burden of disease outlined from #1 - #6 - Weight loss is unlikely given patient's chronic illness and limited cognition. Check TSH. 8. BPH; on tamsulosin - Noted with CT evidence of bladder distention with mild hydroureter bilaterally so we will add finasteride. 9. Seizure disorder (with absence seizures); on levetiracetam twice daily plus phenobarbital nightly followed by Dr. Feliciano of neurology - Maintain current AED regimen plus check levetiracetam and phenobarbital levels. Finally, we will give IV lorazepam as needed for breakthrough seizure activity. 10. Hyperlipidemia; on atorvastatin - Maintain statin and check Lipid Profile. 11. Hypothyroidism; on levothyroxine - Continue levothyroxine as before and check TSH. 12. DM-2; of unknown control on metformin twice daily - Stop metformin and add to list of allergies as outlined in #3. ADA diet. FSBS q. AC/HS plus lowest intensity SSI. Check HgbA1c to objectively assess quality if diabetic control. 13. History of B12 deficiency - Noted with patient on oral replacement which will be continued. 14. History of vitamin D deficiency - Noted with patient currently on oral supplement which will be resumed. 15. Chronic constipation; on polyethylene glycol twice daily - Resume bowel regimen. 16. Seasonal allergies; on loratadine plus fluticasone nasal spray - Stable. 17. DVT prophylaxis - Enoxaparin 40 mg sq daily plus SCD's. Total time: Approximately (but not less than) 75 minutes. Update: Patient's first sodium recheck in ICU was 123 mmol/L with patient continued on NS IVF. Second lactate also decreased to 1.4 mmol/L. Charges/Coding Visit Charges Inpatient E&M: 47812 Init Hosp L3
--- NOTE | 2024-12-30 21:13 | ED.RN ---
Addendum entered by Americo Fabian 12/30/24 21:16: Patient's legal guardian, Trish, attempted to call for an update. Unable to reach at this time. Original Note: This RN called and spoke with Deshaun from the counseling center correction and gave an update on the patient being admitted. No further questions at this time.
[2024-12-30 22:15] LABS: SITE Not entered; VBG BASE EXCESS 0 mmol/L (-1.0-3.5); VBG PO2 52 mmHg (25-40); VBG SO2 88 % (50-70); VBG TCO2 25 mmol/L (23-33)
[2024-12-30] MEDS: 0.9% Normal Saline (1000mL) 1,000 ML 70 ML IV (23:09)
[2024-12-30] MEDS: Fluticasone 0.05% 1 SPRAY NASAL.SRY NASAL (23:22)
[2024-12-30] MEDS: MELATONIN 3 MG TABLET PO (23:26)
[2024-12-30 23:34] LABS: Vitamin B12 789 pg/mL (180-914)
[2024-12-30 23:41] LABS: FOLATES,SERUM (FOLIC ACID) 10.80 ng/mL (4.60-34.80)
[2024-12-30 23:54] LABS: Osmolality, Serum 256 mOsm/KG (280-301)
[2024-12-31] VITALS (13 sets, daily range): BP systolic 115–200; BP diastolic 54–107; PULSE 75–98; RESP 12–22; TEMP 36.1–36.4; O2SAT 96–99; BMI 30.9
[2024-12-31 00:04] LABS: AST(SGOT) 56 U/L (<=37); Alanine Aminotransfer ALT/SGPT 26 U/L (<=46); Albumin, Serum 4.1 g/dL (3.4-4.8); Alkaline Phosphatase 74 U/L (40-129); Anion Gap 15 (5-15); BUN 10 mg/dL (4-19); BUN/Creat Ratio 11.2 RATIO (10-20); Calcium,Total 8.4 mg/dL (7.6-11.0); Carbon Dioxide 18.4 mmol/L (21.0-32.0); Chloride 89 mmol/L (98-108); Estimated Creatinine Clearance 99.44 ml/min (50-250); Globulin 2.5 g/dL (2.2-4.2); Glucose 130 mg/dL (70-99); Magnesium 1.6 mg/dL (1.5-2.2); Potassium 3.7 mmol/L (3.3-5.1)
[2024-12-31 02:16] LABS: Anion Gap 14 (5-15); BUN 10 mg/dL (4-19); BUN/Creat Ratio 12.2 RATIO (10-20); Calcium,Total 8.3 mg/dL (7.6-11.0); Carbon Dioxide 20.1 mmol/L (21.0-32.0); Chloride 87 mmol/L (98-108); Estimated Creatinine Clearance 104.29 ml/min (50-250); Glucose 141 mg/dL (70-99); Potassium 3.7 mmol/L (3.3-5.1)
[2024-12-31] MEDS: 0.9% Saline Lock 10 ML Syringe IV ×2 (03:59→21:32)
[2024-12-31 06:23] LABS: Anion Gap 13 (5-15); BUN 10 mg/dL (4-19); BUN/Creat Ratio 11.3 RATIO (10-20); Calcium,Total 8.3 mg/dL (7.6-11.0); Carbon Dioxide 21.4 mmol/L (21.0-32.0); Chloride 89 mmol/L (98-108); Estimated Creatinine Clearance 96.09 ml/min (50-250); Glucose 136 mg/dL (70-99); Potassium 3.7 mmol/L (3.3-5.1)
--- NOTE | 2024-12-31 07:19 | PCM.PN.HOSP ---
Reason for Visit Chief Complaint: Multiple Falls. Subjective Subjective No issues overnight. Patient does vocalize but repeats pretty much what I say to him somewhat unintelligibly. No meaningful interaction. Objective Data Objective Data Vital Signs: Vital Signs Temp Pulse Resp BP Pulse Ox O2 Del Method 97.5 F L 81 16 169/95 H 96 Room Air 12/31/24 02:00 12/31/24 06:00 12/31/24 06:00 12/31/24 06:00 12/31/24 06:00 12/31/24 06:46 Oxygen Delivery Method Room Air Weight: 103.5 kg Body Mass Index (BMI) 30.9 Intake & Output: Intake and Output for Last 24 Hours 12/29/24 12/30/24 12/31/24 23:59 23:59 23:59 Intake Total 3065.7 / 3065.7 Output Total 150 / 150 Balance 3065.7 / 3065.7 -150 / -150 Lab / Micro Data 12/31/24 10:42 12/31/24 10:42 Labs: Laboratory Results - last 24 hr 12/30/24 16:16: WBC 12.9 H, RBC 4.42 L, Hgb 13.6, Hct 36.5 L, MCV 82.6, MCH 30.8, MCHC 37.3 H, RDW Std Deviation 35.8, RDW Coeff of Celi 11.9, Plt Count 287, MPV 8.8, Immature Gran % (Auto) 0.500, Neut % (Auto) 64.2, Lymph % (Auto) 23.5, [place] % (Auto) 10.5 H, Eos % (Auto) 0.9, Baso % (Auto) 0.4, Absolute Neuts (auto) 8.3 H, Absolute Lymphs (auto) 3.04, Nucleated RBC % 0, PT 13.3, INR 1.0, APTT 23.2 L, Sodium 119 L*, Potassium 4.1, Chloride 81 L, Carbon Dioxide 20.9 L, Anion Gap 17 H, BUN 12, Creatinine 0.93, Estim Creat Clear Calc 92.33, Est GFR (MDRD) Non-Af 88, BUN/Creatinine Ratio 12.8, Glucose 105 H, Lactic Acid 5.1 H*, Calcium 9.2, Total Bilirubin 0.36, AST 57 H, ALT 27, Alkaline Phosphatase 80, Total Protein 6.9, Albumin 4.5, Globulin 2.4, Albumin/Globulin Ratio 1.8 12/30/24 16:23: Urine Color Yellow, Urine Clarity Clear, Urine pH 6.0, Ur Specific [place] 1.010, Urine Protein 30 H, Urine Glucose (UA) 250 H, Urine Ketones Negative, Urine Occult Blood 25 H, Urine Nitrite Negative, Urine Bilirubin Negative, Urine Urobilinogen Normal, Ur Leukocyte Esterase Negative, Urine RBC 0-5 SEEN, Urine WBC 0 SEEN, Ur Squamous Epith Cells 0 SEEN, Urine Bacteria 0 SEEN, Urine Mucus 0 SEEN 12/30/24 20:36: Lactic Acid 1.4 12/30/24 22:46: Sodium 123 L, Potassium 3.7, Chloride 89 L, Carbon Dioxide 18.4 L, Anion Gap 15, BUN 10, Creatinine 0.86, Estim Creat Clear Calc 99.44, Est GFR (MDRD) Non-Af 93, BUN/Creatinine Ratio 11.2, Glucose 130 H, Serum Osmolality 256 L, Lactic Acid < 1.0, Calcium 8.4, Magnesium 1.6, Total Bilirubin 0.49, AST 56 H, ALT 26, Alkaline Phosphatase 74, Total Protein 6.6, Albumin 4.1, Globulin 2.5, Albumin/Globulin Ratio 1.6, Vitamin B12 789, Serum Folate 10.80, TSH 2.890 12/30/24 23:19: POC Glucose 129 H 12/31/24 01:45: Sodium 122 L, Potassium 3.7, Chloride 87 L, Carbon Dioxide 20.1 L, Anion Gap 14, BUN 10, Creatinine 0.82, Estim Creat Clear Calc 104.29, Est GFR (MDRD) Non-Af 94, BUN/Creatinine Ratio 12.2, Glucose 141 H, Calcium 8.3 12/31/24 05:42: Sodium 123 L, Potassium 3.7, Chloride 89 L, Carbon Dioxide 21.4, Anion Gap 13, BUN 10, Creatinine 0.89, Estim Creat Clear Calc 96.09, Est GFR (MDRD) Non-Af 92, BUN/Creatinine Ratio 11.3, Glucose 136 H, Calcium 8.3 12/31/24 06:45: POC Glucose 125 H ABG Data ABG results: ABG 12/30/24 22:11 Specimen Type YEIMI Sample Site Not entered VBG pH 7.45 H VBG pO2 52 H VBG HCO3 24 VBG Total CO2 25 VBG O2 Sat (Calc) 88 H VBG Base Excess 0 POC Mix VBG pCO2 Pt Tmp 35.4 L O2 Delivery Device Room Air Radiography Diagnostic Testing: Radiology Impression Brain CT 12/30/24 15:56 IMPRESSION: No acute intracranial abnormality. Reading Location: [address] Cervical Spine CT 12/30/24 15:56 IMPRESSION: No acute osseous abnormalities. Spondylosis. Reading Location: [address] Abdomen/Pelvis CT 12/30/24 18:03 IMPRESSION: Distended urinary bladder with mild hydroureter bilaterally which may reflect reflux. Otherwise no acute intra-abdominal process. Reading Location: [facility] Physical Exam Const alert, no apparent distress and well nourished; Negative for oriented x3 or average body habitus Constitutional Narrative: Obese, older, white male, lying in bed, awake, interacts but vocalizations are echolalia and speech is intermittently unintelligible HEENT head/scalp atraumatic and moist oral mucous membranes Head and Scalp: normocephalic Eyes conjunctivae normal Eyes Narrative: No scleral icterus Neck supple Neck Narrative: Trachea midline, neck is short and thick Resp normal respiratory effort, no retractions, no use of accessory muscles and clear to auscultation bilaterally Auscultation: Negative for crackles, rhonchi or wheezes Cardio regular rate, regular rhythm, S1 normal heart sound, S2 normal heart sound, no murmurs, no rub, no gallops and no clicks GI normal to inspection, nondistended, normoactive bowel sounds, soft to palpation and non-tender Extremity no clubbing, cyanosis or edema Extremity Narrative: Decreased lean muscle mass Skin Skin Narrative: No significant lesions noted, turgor is normal, somewhat pale appearing Neuro no focal motor deficits Neuro Narrative: Patient has difficulty following commands consistently, significant echolalia Speech: Negative for speech normal Psych Psych Narrative: Difficult to assess Assessment & Plan Assessment/Plan (1) Generalized weakness: (2) Uncontrolled hypertension: (3) Lactic acidosis: (4) Leukocytosis: QUALIFIERS: Leukocytosis type: unspecified Qualified Code(s): D72.829 - Elevated white blood cell count, unspecified (5) Acute hyponatremia: PLAN: Plan Hyponatremia-etiology unclear at this time - Sodium at 119 on presentation - Now up to 123 - Continue serial sodium - Discontinue IV fluids - Would avoid further Lasix - Check uric acid/urine sodium and urine osmolality - Will fluid restrict to 1250 cc daily - Add salt tablets 1 g 3 times daily - Continue to hold HCTZ - TSH is within normal limits - Check cortisol level Generalized weakness/debility - PT/OT consultation - Patient resides in a senior living at baseline with intent to return home once medical issues are stable Lactic acidosis - Initially thought it was related to metformin however with normal renal function seems unlikely - Highly suspect patient may have had a seizure prior to arrival or while in the emergency department and therefore elevated lactic acid with very rapid resolution - No signs of infection Essential hypertension/hyperlipidemia - With discontinuation of HCTZ blood pressures remain elevated - Add Coreg 12.5 mg p.o. twice daily - Continue to hold HCTZ - continue amlodipine 10 mg daily - Continue ARB - Continue statin BPH with obstruction - Continue Flomax Seizure disorder - Continue phenobarb - Continue Keppra - Levels are pending for both drugs--> likely will not have Keppra level Leukocytosis - Remains elevated etiology is unclear - Cultures are pending - Will hold on antibiotics for now and continue to monitor clinically Schizophrenia - Continue home risperidone Hypothyroidism - Continue home levothyroxine Seasonal allergies Open continue home loratadine - Continue home nasal spray DM-2 - A1c is 6.1 indicative of good control - Patient on metformin as an outpatient 1000 mg p.o. twice daily - Hold for now - SSI with Accu-Cheks as ordered Vitamin D deficiency - Continue home vitamin D supplementation History of vitamin B12 deficiency - Continue oral replacement Chronic constipation - Continue home bowel regimen Obesity - BMI is 30.9 - Recommend weight loss - Complicates treatment, prognosis, outcomes DVT prophylaxis - Continue enoxaparin 40 daily CODE STATUS - Patient is listed as full code unverified - No paperwork from senior living indicating what his CODE STATUS is and patient is not able to have that conversation - Trying to touch base with the senior living to see what his CODE STATUS is so we can addend the order Charges/Coding Visit Charges Inpatient E&M: 53036 Subs Hosp L3
--- NOTE | 2024-12-31 10:23 | CASEMGMT ---
Social Work- SW called [facility] and spoke with Linda (crisis) as Nelson and Hina ([facility] staff) are not available. Linda will reach out to staff on their cell phones and call SW to follow up on guardianship documentation and parameters for return. PCU SW updated. JED Berg
[2024-12-31 10:51] LABS: Hematocrit 39.2 % (40-54); Hemoglobin 13.9 g/dL (13.0-16.5); Immature Granulocytes Count 0.070 X10^3/uL (0.0-0.0); Mean Corp Hgb Conc 35.5 g/dL (32-36); Mean Corpuscular Volume 83.2 fL (80-94); Mean Platelet Vol. 8.8 fl (6.2-12.0); NRBC Flagged by Analyzer 0 % (0-5); POSITIVE DIFFERENTIAL YES; Platelet Count 314 K/mm3 (150-450); RBC Distribution Width CV 11.8 % (11.6-14.6); RBC Distribution Width SD 35.7 fl (35.1-43.9); Red Blood Count 4.71 M/mm3 (4.6-6.2); White Blood Count 15.0 K/mm3 (4.4-11.0)
[2024-12-31 11:05] LABS: Differential Indicated SCAN CRITERIA MET
[2024-12-31 11:21] LABS: Anion Gap 14 (5-15); BUN 11 mg/dL (4-19); BUN/Creat Ratio 11.1 RATIO (10-20); Calcium,Total 8.7 mg/dL (7.6-11.0); Carbon Dioxide 20.5 mmol/L (21.0-32.0); Chloride 89 mmol/L (98-108); Estimated Creatinine Clearance 88.16 ml/min (50-250); Glucose 168 mg/dL (70-99); Potassium 3.5 mmol/L (3.3-5.1)
[2024-12-31 12:21] LABS: Cholesterol 108 mg/dL (<=200); Low Density Lipoprotein Calc. 39 mg/dL; Triglycerides 104 mg/dL; Very Low Density Lipoprotein 21 mg/dL (5-40); cholesterol:hdl ratio screen 2.24
[2024-12-31 12:30] LABS: Uric Acid 5.0 mg/dL (3.5-7.2)
--- NOTE | 2024-12-31 12:30 | CASEMGMT ---
Social Work SW received the guardianship paperwork and put a copy in the patients chart. HOLLY Ron
--- NOTE | 2024-12-31 13:05 | CASEMGMT ---
Social Work ARIANA received a VM from Vijay Anaya at the . Vijay stated the patient cannot return to on oxygen or using any devices. She stated he must be able to complete steps. ARIANA called Vijay back and left her a message. HOLLY Ron
--- NOTE | 2024-12-31 14:24 | CASEMGMT ---
Social Work SW spoke with Vijay Anaya at [facility] . ARIANA requested a copy of the guardianship paperwork. Vijay stated they can have a copy faxed over. Vijay reported the guardian is aware that the patient is in the hospital. HOLLY Ron
[2024-12-31 15:03] LABS: Anion Gap 12 (5-15); BUN 11 mg/dL (4-19); BUN/Creat Ratio 11.0 RATIO (10-20); Calcium,Total 8.8 mg/dL (7.6-11.0); Carbon Dioxide 23.0 mmol/L (21.0-32.0); Chloride 91 mmol/L (98-108); Estimated Creatinine Clearance 85.52 ml/min (50-250); Glucose 140 mg/dL (70-99); Potassium 3.7 mmol/L (3.3-5.1)
[2024-12-31 17:03] LABS: CORTISOL PM 12.70 ug/dL (2.68-10.50)
[2024-12-31 19:32] LABS: Anion Gap 12 (5-15); BUN 13 mg/dL (4-19); BUN/Creat Ratio 12.7 RATIO (10-20); Calcium,Total 8.9 mg/dL (7.6-11.0); Carbon Dioxide 22.5 mmol/L (21.0-32.0); Chloride 91 mmol/L (98-108); Estimated Creatinine Clearance 85.52 ml/min (50-250); Glucose 155 mg/dL (70-99); Potassium 3.6 mmol/L (3.3-5.1)
[2024-12-31] MEDS: Fluticasone 0.05% 1 SPRAY NASAL.SRY NASAL (21:31)
[2024-12-31 22:42] LABS: Anion Gap 12 (5-15); BUN 13 mg/dL (4-19); BUN/Creat Ratio 13.3 RATIO (10-20); Calcium,Total 9.0 mg/dL (7.6-11.0); Carbon Dioxide 22.4 mmol/L (21.0-32.0); Chloride 93 mmol/L (98-108); Estimated Creatinine Clearance 90.98 ml/min (50-250); Glucose 121 mg/dL (70-99); Potassium 4.0 mmol/L (3.3-5.1)
[2024-12-31 23:18] LABS: Osmolality, Urine 247 mOsm/KG
[2024-12-31] MEDS: MELATONIN 3 MG TABLET PO (23:49)
[2025-01-01 05:26] VITALS: BP 158/76; PULSE 79; RESP 17; TEMP 36.3; O2SAT 95
[2025-01-01 05:52] VITALS: BMI 31.2
[2025-01-01 07:53] LABS: Hematocrit 35.5 % (40-54); Hemoglobin 12.8 g/dL (13.0-16.5); Mean Corp Hgb Conc 36.1 g/dL (32-36); Mean Corpuscular Volume 83.9 fL (80-94); Mean Platelet Vol. 8.9 fl (6.2-12.0); Platelet Count 303 K/mm3 (150-450); RBC Distribution Width CV 12.1 % (11.6-14.6); RBC Distribution Width SD 37.0 fl (35.1-43.9); Red Blood Count 4.23 M/mm3 (4.6-6.2); White Blood Count 13.0 K/mm3 (4.4-11.0)
[2025-01-01 09:10] LABS: CRP 51.70 mg/L (0.0-3.0); Procalcitonin 0.08 ng/mL (<=0.10)
[2025-01-01 09:36] VITALS: PULSE 92
--- NOTE | 2025-01-01 09:44 | CASEMGMT ---
Social Work SW spoke with [facility] SADIE Mcbride P# [phone], F# [phone]. SADIE Recinos requested admission paperwork. ARIANA faxed her the H&P. L. HOLLY Cruz
--- NOTE | 2025-01-01 10:02 | NURSING ---
Vijay called and message left to return call with code status.
--- NOTE | 2025-01-01 10:40 | CASEMGMT ---
Discharge Planning Updates faxed ([phone]) to Vijay @ [facility]. Asked for confirmation of contact information listed on facesheet. Fax confirmation rec'jamil. Asmita Andre DC Planning Asst.
[2025-01-01 11:00] VITALS: BP 150/68; PULSE 90; RESP 18; TEMP 36.8; O2SAT 97
--- NOTE | 2025-01-01 11:14 | CASEMGMT ---
Social Work SW spoke with the guardian Trish. Trish reported she knows the patient is in the hospital. HOLLY Ron
[2025-01-01 14:16] VITALS: PULSE 88
--- NOTE | 2025-01-01 15:32 | PCM.PN.HOSP ---
Reason for Visit Chief Complaint: Multiple Falls. Subjective Subjective No issues overnight. Patient is verbal but unintelligible. Still trying to find out CODE STATUS from custodial as there was none sent and we have not yet been able to get a hold of them to figure out answer to this. Objective Data Objective Data Vital Signs: Vital Signs Temp Pulse Resp BP Pulse Ox O2 Del Method 98.2 F 88 18 150/68 H 97 Room Air 01/01/25 11:00 01/01/25 14:16 01/01/25 11:00 01/01/25 11:00 01/01/25 11:00 01/01/25 11:00 Oxygen Delivery Method Room Air Weight: 104.6 kg Body Mass Index (BMI) 31.2 Intake & Output: Intake and Output for Last 24 Hours 12/30/24 12/31/24 01/01/25 23:59 23:59 23:59 Intake Total 3065.7 / 3065.7 936.33 / 936.33 Output Total 400 / 400 Balance 3065.7 / 3065.7 536.33 / 536.33 Lab / Micro Data 01/01/25 07:24 12/31/24 21:33 Labs: Laboratory Results - last 24 hr 12/31/24 14:15: Cortisol PM Sample 12.70 H 12/31/24 16:21: POC Glucose 218 H 12/31/24 18:42: Sodium 126 L, Potassium 3.6, Chloride 91 L, Carbon Dioxide 22.5, Anion Gap 12, BUN 13, Creatinine 1.00, Estim Creat Clear Calc 85.52, Est GFR (MDRD) Non-Af 81, BUN/Creatinine Ratio 12.7, Glucose 155 H, Calcium 8.9 12/31/24 21:24: POC Glucose 125 H 12/31/24 21:33: Sodium 128 L, Potassium 4.0, Chloride 93 L, Carbon Dioxide 22.4, Anion Gap 12, BUN 13, Creatinine 0.94, Estim Creat Clear Calc 90.98, Est GFR (MDRD) Non-Af 87, BUN/Creatinine Ratio 13.3, Glucose 121 H, Calcium 9.0 12/31/24 22:33: Urine Osmolality 247 01/01/25 06:25: POC Glucose 137 H 01/01/25 07:24: WBC 13.0 H, RBC 4.23 L, Hgb 12.8 L, Hct 35.5 L, MCV 83.9, MCH 30.3, MCHC 36.1 H, RDW Std Deviation 37.0, RDW Coeff of Ceil 12.1, Plt Count 303, MPV 8.9, ESR 16, Phosphorus 3.0, C-React Prot Ext Range 51.70 H, Procalcitonin 0.08 01/01/25 11:13: POC Glucose 192 H Micro: Microbiology 12/30/24 16:23 Urine, Catheterized Urine Culture - Final Culture exhibits no growth. Physical Exam Const alert, no apparent distress and well nourished; Negative for oriented x3 or average body habitus Constitutional Narrative: Obese, older, white male, sitting up in a chair at the bedside, TV is on, patient is awake, interacts but vocalizations are echolalia and speech is intermittently unintelligible General Appearance: cooperative HEENT normocephalic and head/scalp atraumatic Resp normal respiratory effort, no retractions, no use of accessory muscles and clear to auscultation bilaterally Auscultation: Negative for crackles, rhonchi or wheezes Cardio regular rate, regular rhythm, S1 normal heart sound, S2 normal heart sound, no murmurs, no rub, no gallops and no clicks GI normal to inspection, nondistended, normoactive bowel sounds, soft to palpation and non-tender Extremity no clubbing, cyanosis or edema Neuro moves all extremities and no focal motor deficits Neuro Narrative: Patient has difficulty following commands consistently, significant echolalia Sensorium / Orientation: awake and alert Speech: Negative for speech normal Psych Psych Narrative: Difficult to assess, patient is currently calm, noncombative Assessment & Plan Assessment/Plan (1) Generalized weakness: (2) Uncontrolled hypertension: (3) Lactic acidosis: (4) Leukocytosis: QUALIFIERS: Leukocytosis type: unspecified Qualified Code(s): D72.829 - Elevated white blood cell count, unspecified (5) Acute hyponatremia: PLAN: Plan Hyponatremia-etiology unclear at this time - Sodium at 119 on presentation - Now up to 128 - Repeat sodium in a.m. - Not completely indicative of SIADH - Will continue fluid restrict to 1250 cc daily - Continue salt tablets 1 g 3 times daily - Continue to hold HCTZ and will discontinue at discharge - TSH is within normal limits - Cortisol levels within normal limits Generalized weakness/debility - PT/OT consultation - Patient resides in a custodial at baseline with intent to return home once medical issues are stable Lactic acidosis - Initially thought it was related to metformin however with normal renal function seems unlikely - Highly suspect patient may have had a seizure prior to arrival or while in the emergency department and therefore elevated lactic acid with very rapid resolution - No signs of infection as patient has unremarkable sed rate, CRP, and procalcitonin Leukocytosis - No infectious etiology identified as of yet - Will monitor clinically - Sed rate/CRP/Pro-Jake are unremarkable - Urine cultures no growth - Blood cultures pending Essential hypertension/hyperlipidemia - With discontinuation of HCTZ blood pressures remain elevated - Continue Coreg 12.5 mg p.o. twice daily - Add hydralazine 50 mg 3 times daily - continue amlodipine 10 mg daily - Continue ARB - Continue statin BPH with obstruction - Continue Flomax Seizure disorder - Continue phenobarb - Continue Keppra - Levels are pending for both drugs--> likely will not have Keppra level Schizophrenia - Continue home risperidone Hypothyroidism - Continue home levothyroxine Seasonal allergies Open continue home loratadine - Continue home nasal spray DM-2 - A1c is 6.1 indicative of good control - Patient on metformin as an outpatient 1000 mg p.o. twice daily - Hold for now - SSI with Accu-Cheks as ordered Vitamin D deficiency - Continue home vitamin D supplementation History of vitamin B12 deficiency - Continue oral replacement Chronic constipation - Continue home bowel regimen Obesity - BMI is 30.9 - Recommend weight loss - Complicates treatment, prognosis, outcomes DVT prophylaxis - Continue enoxaparin 40 daily CODE STATUS - Patient is listed as full code unverified - No paperwork from custodial indicating what his CODE STATUS is and patient is not able to have that conversation - Trying to touch base with the custodial to see what his CODE STATUS is so we can addend the order Charges/Coding Visit Charges Inpatient E&M: 19739 Subs Hosp L2
[2025-01-01 16:09] LABS: Anion Gap 11 (5-15); BUN 12 mg/dL (4-19); BUN/Creat Ratio 12.2 RATIO (10-20); Calcium,Total 8.9 mg/dL (7.6-11.0); Carbon Dioxide 23.4 mmol/L (21.0-32.0); Chloride 94 mmol/L (98-108); Estimated Creatinine Clearance 89.53 ml/min (50-250); Glucose 139 mg/dL (70-99); Potassium 3.8 mmol/L (3.3-5.1)
[2025-01-01 17:00] VITALS: BP 125/59; PULSE 88; RESP 18; TEMP 36.8; O2SAT 97
[2025-01-01] MEDS: Fluticasone 0.05% 1 SPRAY NASAL.SRY NASAL (21:09)
[2025-01-01 21:10] VITALS: BP 146/79; PULSE 84; RESP 16; TEMP 37; O2SAT 95
[2025-01-01] MEDS: 0.9% Saline Lock 10 ML Syringe IV (21:13)
[2025-01-02 03:00] VITALS: BP 129/57; PULSE 74; RESP 16; TEMP 36.9; O2SAT 94
[2025-01-02 05:17] VITALS: BMI 31.1
[2025-01-02 06:04] LABS: Hematocrit 35.2 % (40-54); Hemoglobin 12.5 g/dL (13.0-16.5); Mean Corp Hgb Conc 35.5 g/dL (32-36); Mean Corpuscular Volume 85.4 fL (80-94); Mean Platelet Vol. 8.7 fl (6.2-12.0); Platelet Count 294 K/mm3 (150-450); RBC Distribution Width CV 12.3 % (11.6-14.6); RBC Distribution Width SD 38.5 fl (35.1-43.9); Red Blood Count 4.12 M/mm3 (4.6-6.2); White Blood Count 11.1 K/mm3 (4.4-11.0)
[2025-01-02 06:09] VITALS: BP 158/75; PULSE 83
[2025-01-02 06:35] LABS: Anion Gap 10 (5-15); BUN 13 mg/dL (4-19); BUN/Creat Ratio 13.1 RATIO (10-20); Calcium,Total 8.8 mg/dL (7.6-11.0); Carbon Dioxide 23.2 mmol/L (21.0-32.0); Chloride 99 mmol/L (98-108); Estimated Creatinine Clearance 86.77 ml/min (50-250); Glucose 122 mg/dL (70-99); Potassium 3.9 mmol/L (3.3-5.1)
[2025-01-02 08:54] VITALS: BP 161/91; PULSE 88; RESP 17; TEMP 36.5; O2SAT 96
--- NOTE | 2025-01-02 10:35 | CASEMGMT ---
Social Work SW called Vijay Anaya at the . Vijay requested the patient medications be called in at [facility]. Vijay requested SW call when patient is ready for DC. She reported they can provide transportation. Vijay reported the patient receives aids services 3 t 4 days a week for bathing assistance. HOLLY Ron
--- NOTE | 2025-01-02 10:53 | CASEMGMT ---
Social Work SW called Jorje Mcbride at [facility] and left her message that the patient is discharging today. HOLLY Ron
--- NOTE | 2025-01-02 10:57 | CASEMGMT ---
Social Work SW called the guardian and left a message informing her that the patient will be discharging back to today. HOLLY Ron
--- NOTE | 2025-01-02 11:42 | CASEMGMT ---
Social Work SW spoke with the staff and transportation was scheduled for 300pm. The nurse and the physician were notified. HOLLY Ron
--- NOTE | 2025-01-02 13:18 | PCM.DC.SUM ---
Providers Date of Admission: 12/30/24 Date of Discharge: 01/02/25 Primary Care Physician: Eddi Lynn MD Reason For Visit: SEVERE ACUTE HYPONATREMIA 2/2 ADR TO HCTZ Diagnosis Discharge Diagnosis (1) Generalized weakness: Status: Acute Code(s): R53.1 - Weakness (2) Uncontrolled hypertension: Status: Acute Code(s): I10 - Essential (primary) hypertension (3) Lactic acidosis: Status: Acute Code(s): E87.20 - Acidosis, unspecified (4) Leukocytosis: Status: Acute Code(s): D72.829 - Elevated white blood cell count, unspecified Qualifiers: Leukocytosis type: unspecified Qualified Code(s): D72.829 - Elevated white blood cell count, unspecified (5) Acute hyponatremia: Status: Acute Code(s): E87.1 - Hypo-osmolality and hyponatremia Plan Hyponatremia-etiology unclear at this time - Sodium at 119 on presentation - Now up to 128 - Repeat sodium in a.m. - Not completely indicative of SIADH - Will continue fluid restrict to 1250 cc daily - Continue salt tablets 1 g 3 times daily - Continue to hold HCTZ and will discontinue at discharge - TSH is within normal limits - Cortisol levels within normal limits Generalized weakness/debility - PT/OT consultation - Patient resides in a skilled nursing at baseline with intent to return home once medical issues are stable Lactic acidosis - Initially thought it was related to metformin however with normal renal function seems unlikely - Highly suspect patient may have had a seizure prior to arrival or while in the emergency department and therefore elevated lactic acid with very rapid resolution - No signs of infection as patient has unremarkable sed rate, CRP, and procalcitonin Leukocytosis - No infectious etiology identified as of yet - Will monitor clinically - Sed rate/CRP/Pro-Jake are unremarkable - Urine cultures no growth - Blood cultures pending Essential hypertension/hyperlipidemia - With discontinuation of HCTZ blood pressures remain elevated - Continue Coreg 12.5 mg p.o. twice daily - Add hydralazine 50 mg 3 times daily - continue amlodipine 10 mg daily - Continue ARB - Continue statin BPH with obstruction - Continue Flomax Seizure disorder - Continue phenobarb - Continue Keppra - Levels are pending for both drugs--> likely will not have Keppra level Schizophrenia - Continue home risperidone Hypothyroidism - Continue home levothyroxine Seasonal allergies Open continue home loratadine - Continue home nasal spray DM-2 - A1c is 6.1 indicative of good control - Patient on metformin as an outpatient 1000 mg p.o. twice daily - Hold for now - SSI with Accu-Cheks as ordered Vitamin D deficiency - Continue home vitamin D supplementation History of vitamin B12 deficiency - Continue oral replacement Chronic constipation - Continue home bowel regimen Obesity - BMI is 30.9 - Recommend weight loss - Complicates treatment, prognosis, outcomes DVT prophylaxis - Continue enoxaparin 40 daily CODE STATUS - Patient is listed as full code unverified - No paperwork from skilled nursing indicating what his CODE STATUS is and patient is not able to have that conversation - Trying to touch base with the skilled nursing to see what his CODE STATUS is so we can addend the order Medications at Discharge Home Medications loratadine 10 mg tablet 10 mg PO DAILY allergies 07/16/16 omega 3-jti-urg-fish oil 300 mg-1,000 mg capsule 1 ea PO BID 07/16/16 risperidone 3 mg tablet 3 mg PO QHS 07/16/16 atorvastatin 40 mg tablet 40 mg PO QHS 11/27/19 metformin 1,000 mg tablet 1,000 mg PO BID 11/27/19 fluticasone propionate 50 mcg/actuation nasal spray,suspension 1 spray intranasal QHS 12/02/19 polyethylene glycol 3350 17 gram oral powder packet 17 g PO BID 12/02/19 tamsulosin 0.4 mg capsule 0.4 mg PO DAILY 12/02/19 levothyroxine 50 mcg tablet 50 mcg PO QDAY 11/28/23 cholecalciferol (vitamin D3) 1,250 mcg (50,000 unit) capsule 1,250 mcg PO QMONTH #1 cap 05/28/24 mecobalamin (vitamin B12) 1,000 mcg chewable tablet (B12 Active) 1,000 mcg PO DAILY #30 tabs 05/28/24 chlorhexidine gluconate 0.12 % mouthwash 15 ml buccal BID 11/26/24 olmesartan 40 mg tablet 40 mg PO QAM #30 tabs 11/26/24 phenobarbital 60 mg tablet 120 mg (2 x 60 mg) PO QHS #56 tabs 11/26/24 amlodipine 10 mg tablet (Norvasc) 10 mg PO DAILY #30 tabs 12/19/24 beta carotene 30 mg capsule 30 mg PO DAILY 12/22/24 levetiracetam 1,000 mg tablet 1,000 mg PO BID 12/22/24 carvedilol 25 mg tablet 25 mg PO BIDCM #60 tabs 01/02/25 hydralazine 50 mg tablet 50 mg PO TID #90 tabs 01/02/25 sodium chloride 1,000 mg soluble tablet 1,000 mg PO TID #90 tabs 01/02/25 Hospital Course Operations None Procedures - (CT brain/CT cervical spine/CT abdomen and pelvis) Summary of Care Provided Minutes Spent on Discharge: 39 Hospital Course: Mr. Bennett is a 69-year-old white male who is nonverbal at baseline with a history of schizophrenia and seizures who presented to the emergency department from his skilled nursing due to multiple falls on the day of presentation. According to his skilled nursing he has been getting antibiotics for UTI over the last several days prior to presentation. He sustained several falls prior to admission so they referred him to the emergency department for further evaluation. Patient is not able to give any history. He makes verbal sounds but they are unintelligible or echolalia. Vital signs on presentation showed temperature of 97.9, heart rate 87, respiratory rate was 17, blood pressure was 158/85 and pulse ox was 95% on room air. CBC showed a mild leukocytosis white count of 12.9 and a mild monocytosis but no left shift. Chemistry panel revealed marked hyponatremia with a sodium of 119. Previous baseline is unclear. His anion gap was 17 with a bicarb of 20.9. Renal function was normal. Lactic acid was initially 5.1. Liver functions were unremarkable. Urine was not consistent with infection. CT of the brain was unremarkable. CT of the cervical spine was unremarkable for any acute findings. CT of the abdomen pelvis showed urinary distention of the bladder with mild hydroureter bilaterally which was consistent with reflux but was otherwise unremarkable. Given his marked hyponatremia and falls he was admitted initially to the ICU and then transferred to the medical floor. He was noted to be on HCTZ at home and this was discontinued at the time of admission. His blood pressure remained elevated and we added hydralazine 50 mg 3 times daily initially. His blood pressure still remained elevated so we added Coreg initially 12.5 twice daily and this was uptitrated to 25 p.o. twice daily with improved blood pressure control prior to discharge. HCTZ will be discontinued indefinitely. Workup for hyponatremia was somewhat of a mixed picture. His uric acid was negative. He was hypoosmolar and I suspect this was adverse reaction related to hyponatremia. He did have a lactic acid on presentation. Initially it was thought maybe this was related to his metformin however his renal function was normal. I am wondering if he had a mild seizure that was not witnessed and maybe this was related to one of his falls as it would explain the marked elevation at 5.1 at presentation but quick resolution of 1.1 after admission. Ultimately, he was placed on salt tablets we will continue these for 1 month. Sodium at the time of discharge was up to 132. He was evaluated by physical and Occupational Therapy and did extremely well and they felt he had no ongoing needs for therapy services at the time of discharge. By 01/02/2025 again, his sodium was up to 132 and he was stable for discharge. HCTZ was placed as an allergy with side effect of severe hyponatremia and it is recommended that this be discontinued indefinitely not used again. New prescriptions for Coreg, hydralazine, and salt tablets for 1 month were given to the patient. I do recommend he have a follow-up BMP in 2 weeks and a follow-up with his primary care physician to reassess his blood pressure with the changes made during his hospital course. Patient was discharged home in stable condition with prescriptions sent to local pharmacy on 01/02/2025. Discharge diagnoses: Acute hyponatremia secondary to adverse reaction to HCTZ Generalized weakness Debilities Falls Lactic acidosis Leukocytosis-resolving Essential hypertension Hyperlipidemia BPH with obstruction Seizure disorder Schizophrenia Hypothyroidism Seasonal allergies DM-2 Vitamin D deficiency Vitamin B12 deficiency Chronic constipation Obesity Physical Exam Const alert, no apparent distress, no limitations and well nourished; Negative for oriented x3 or average body habitus Constitutional Narrative: Obese, older, white male, sitting up in a chair at the bedside, TV is on, patient is awake, interacts but vocalizations are echolalia and speech is intermittently unintelligible General Appearance: cooperative, comfortable, well kempt and well developed Orientation / Consciousness: awake Nutritional Appearance: obese HEENT normocephalic, head/scalp atraumatic and moist oral mucous membranes HEENT Narrative: Mallampati 3, no thrush Eyes conjunctivae normal Eyes Narrative: No scleral icterus Neck supple Neck Narrative: Trachea midline, neck is short and thick Resp normal respiratory effort, no retractions, no use of accessory muscles and clear to auscultation bilaterally Auscultation: Negative for crackles, rhonchi or wheezes Cardio regular rate, regular rhythm, S1 normal heart sound, S2 normal heart sound, no murmurs, no rub, no gallops and no clicks GI normal to inspection, nondistended, normoactive bowel sounds, soft to palpation and non-tender GI Narrative: Protuberant abdomen Extremity no clubbing, cyanosis or edema Extremity Narrative: Decreased lean muscle mass Skin no jaundice, no petechiae and no mottling Skin Narrative: somewhat pale appearing Neuro moves all extremities and no focal motor deficits Neuro Narrative: Patient has difficulty following commands consistently, significant echolalia, no deficits noted on spontaneous movement Speech: Negative for speech normal Psych Psych Narrative: Difficult to assess, patient is currently calm, noncombative Weight / BMI Weight Weight: 104.5 kg Body Mass Index (BMI) 31.1 ABG / Lab / Microbiology Data 01/02/25 05:56 01/02/25 05:56 Laboratory: Laboratory Results - last 24 hr 01/01/25 07:24: Sodium 129 L, Potassium 3.8, Chloride 94 L, Carbon Dioxide 23.4, Anion Gap 11, BUN 12, Creatinine 0.96, Estim Creat Clear Calc 89.53, Est GFR (MDRD) Non-Af 85, BUN/Creatinine Ratio 12.2, Glucose 139 H, Calcium 8.9 01/01/25 17:20: POC Glucose 107 H 01/01/25 21:20: POC Glucose 130 H 01/02/25 05:56: WBC 11.1 H, RBC 4.12 L, Hgb 12.5 L, Hct 35.2 L, MCV 85.4, MCH 30.3, MCHC 35.5, RDW Std Deviation 38.5, RDW Coeff of Celi 12.3, Plt Count 294, MPV 8.7, Sodium 132 L, Potassium 3.9, Chloride 99, Carbon Dioxide 23.2, Anion Gap 10, BUN 13, Creatinine 0.99, Estim Creat Clear Calc 86.77, Est GFR (MDRD) Non-Af 82, BUN/Creatinine Ratio 13.1, Glucose 122 H, Calcium 8.8 01/02/25 06:08: POC Glucose 119 H 01/02/25 11:37: POC Glucose 173 H Microbiology: Microbiology 12/30/24 16:49 Blood Culture (Wb) - Anticubital Right Blood Culture - Preliminary No growth in 48 hours. 12/30/24 16:16 Blood Culture (Wb) - Anticubital Right Blood Culture - Preliminary No growth in 48 hours. 12/30/24 16:23 Urine, Catheterized Urine Culture - Final Culture exhibits no growth. D/C Instructions Discharge Activity: Return to Normal Activity DC O2, CPAP, BIPAP Needs Home O2 Discharge instructions: No DC home with Oxygen: No Meaningful Use Info Meaningful Use Meaningful Use Diagnoses (Choose all that apply): None applicable Discharge Plan Admission Admit Date/Time: 12/30/24 21:21 Primary Reason for Your Visit: Falls Attending Provider: Alice Mckeon Primary Care Provider: Eddi Lynn Consulting Providers: Jorge Herrera Instructions Additional Instructions / Restrictions: 1. Patient will need to follow-up for his blood pressure and his sodium with a repeat BMP in 2 weeks. He is to be on sodium tablets for 1 month but if repeat BMP shows elevated sodium may be able to discontinue earlier at the discretion of his primary care physician 2. HCTZ should be added to his allergy list with the severe side effect of hyponatremia Discharge Orders/Prescriptions Prescriptions: New carvedilol 25 mg Tablet 25 mg PO BIDCM Qty: 60 2RF hydralazine 50 mg Tablet 50 mg PO TID Qty: 90 2RF sodium chloride 1,000 mg Tablet,Soluble 1,000 mg PO TID Qty: 90 0RF Continued metformin 1,000 mg tablet 1,000 mg PO BID atorvastatin 40 mg tablet 40 mg PO QHS polyethylene glycol 3350 17 gram powder in packet 17 g PO BID fluticasone propionate 50 mcg/actuation spray,suspension 1 spray INTRANASAL QHS Rx Instructions: administer into each nostril tamsulosin 0.4 mg capsule 0.4 mg PO DAILY chlorhexidine gluconate 0.12 % mouthwash 15 ml BUCCAL BID levothyroxine 50 mcg tablet 50 mcg PO QDAY cholecalciferol (vitamin D3) 1,250 mcg (50,000 unit) capsule 1,250 mcg PO QMONTH Qty: 1 7RF Patient Comments: TAKES ON THE OF EACH MONTH B12 Active 1,000 mcg tablet,chewable 1,000 mcg PO DAILY Qty: 30 7RF olmesartan 40 mg tablet 40 mg PO QAM Qty: 30 6RF phenobarbital 60 mg tablet 120 mg PO QHS Qty: 56 5RF risperidone 3 MG tablet 3 mg PO QHS loratadine 10 MG tablet 10 mg PO DAILY omega 8-lmh-dpj-fish oil 1 EACH capsule 1 ea PO BID beta carotene 30 mg capsule 30 mg PO DAILY levetiracetam 1,000 mg tablet 1,000 mg PO BID amlodipine [Norvasc] 10 mg tablet 10 mg PO DAILY Qty: 30 0RF Discontinued hydrochlorothiazide 25 mg tablet 25 mg PO DAILY Referrals / Follow Up: Eddi Lynn MD [Primary Care Provider, Family Practice] - Within 2 Weeks Disposition Disposition (needs filled in before D/C Order can be placed): DC/Tx to Another Type of HCF Charges/Coding Visit Charges Inpatient E&M: 22018 Disch Hosp >30min
--- NOTE | 2025-01-02 14:00 | PHA.DC.MR.R ---
Pharmacy PR Med Reconciliation Pharmacy Service has performed discharge medication reconciliation for this patient. The patient's discharge medication list was reviewed for discrepancies and discrepancies were resolved. Medications at Discharge Home Medications loratadine 10 mg tablet 10 mg PO DAILY allergies 07/16/16 omega 0-hzs-lnt-fish oil 300 mg-1,000 mg capsule 1 ea PO BID supplement 07/16/16 risperidone 3 mg tablet 3 mg PO QHS mental health 07/16/16 atorvastatin 40 mg tablet 40 mg PO QHS cholesterol 11/27/19 metformin 1,000 mg tablet 1,000 mg PO BID diabetes 11/27/19 fluticasone propionate 50 mcg/actuation nasal spray,suspension 1 spray intranasal QHS 12/02/19 polyethylene glycol 3350 17 gram oral powder packet 17 g PO BID constipation 12/02/19 tamsulosin 0.4 mg capsule 0.4 mg PO DAILY prostate 12/02/19 levothyroxine 50 mcg tablet 50 mcg PO QDAY thyroid 11/28/23 cholecalciferol (vitamin D3) 1,250 mcg (50,000 unit) capsule 1,250 mcg PO QMONTH vitamin #1 cap 05/28/24 mecobalamin (vitamin B12) 1,000 mcg chewable tablet (B12 Active) 1,000 mcg PO DAILY vitamin #30 tabs 05/28/24 chlorhexidine gluconate 0.12 % mouthwash 15 ml buccal BID mouth sores 11/26/24 olmesartan 40 mg tablet 40 mg PO QAM blood pressure #30 tabs 11/26/24 phenobarbital 60 mg tablet 120 mg (2 x 60 mg) PO QHS seizures #56 tabs 11/26/24 amlodipine 10 mg tablet (Norvasc) 10 mg PO DAILY blood pressure #30 tabs 12/19/24 beta carotene 30 mg capsule 30 mg PO DAILY supplement 12/22/24 levetiracetam 1,000 mg tablet 1,000 mg PO BID seizures 12/22/24 carvedilol 25 mg tablet 25 mg PO BIDCM #60 tabs 01/02/25 hydralazine 50 mg tablet 50 mg PO TID #90 tabs 01/02/25 sodium chloride 1,000 mg soluble tablet 1,000 mg PO TID #90 tabs 01/02/25
[2025-01-02 14:14] VITALS: BP 140/77; PULSE 75; RESP 17; TEMP 36.4; O2SAT 95
[2025-01-02 14:15] VITALS: PULSE 74
[2025-01-03 10:08] LABS: KEPPRA (LEVETIRACETAM) 18.4 ug/mL (10.0-40.0)
== END 2025-01-02 15:18 | disposition other institution (70) | DRG 641 ==
LOC: ED 20:54 → ICU 21:32 → PCU 12-31 09:44
PROVIDERS: Admitting Provider Internal Medicine; Emergency Provider Emergency Medicine; PCP Family Medicine; Visit Provider Internal Medicine
DX: E87.1 Hypo-osmolality and hyponatremia (principal); N13.8 Other obstructive and reflux uropathy; E87.20 Acidosis, unspecified; E11.9 Type 2 diabetes mellitus without complications; E03.9 Hypothyroidism, unspecified; D72.829 Elevated white blood cell count, unspecified; G40.909 Epilepsy, unspecified, not intractable, without status epilepticus; F20.9 Schizophrenia, unspecified; I10 Essential (primary) hypertension; Z68.31 Body mass index [BMI] 31.0-31.9, adult; E55.9 Vitamin D deficiency, unspecified; E78.5 Hyperlipidemia, unspecified; J30.2 Other seasonal allergic rhinitis; N40.1 Benign prostatic hyperplasia with lower urinary tract symptoms; E66.811 Obesity, class 1; Z79.899 Other long term (current) drug therapy; Z79.84 Long term (current) use of oral hypoglycemic drugs; T50.2X5A Adverse effect of carbonic-anhydrase inhibitors, benzothiadiazides and other diuretics, initial encounter
CPT/HCPCS: 36415; 70450; 72125; 74177; 80048; 80053; 80061; 80177; 80184; 81001; 82533; 82607; 82746; 82803; 82962; 83605; 83735; 83930; 83935; 84100; 84145; 84300; 84443; 84550; 85025; 85027; 85610; 85652; 85730; 86140; 87040; 87086; 93005; 94762; 97161; 97166; 97535; 99285; Q9967; A4216; J1938

== ENCOUNTER 2025-01-08 18:36 | Inpatient (IN) | payer MEDICARE, MEDICAID, SELFPAY ==
[2025-01-08 18:37] VITALS: BP 179/70; PULSE 88; RESP 18; TEMP 36.6; O2SAT 95; BMI 32.5
[2025-01-08 20:16] LABS: Hematocrit 32.4 % (40-54); Hemoglobin 10.9 g/dL (13.0-16.5); Immature Granulocytes Count 0.070 X10^3/uL (0.0-0.0); Mean Corp Hgb Conc 33.6 g/dL (32-36); Mean Corpuscular Volume 89.5 fL (80-94); Mean Platelet Vol. 9.1 fl (6.2-12.0); NRBC Flagged by Analyzer 0 % (0-5); Platelet Count 321 K/mm3 (150-450); RBC Distribution Width CV 12.3 % (11.6-14.6); RBC Distribution Width SD 40.0 fl (35.1-43.9); Red Blood Count 3.62 M/mm3 (4.6-6.2); White Blood Count 13.1 K/mm3 (4.4-11.0)
[2025-01-08 20:36] VITALS: BP 191/66; PULSE 84; RESP 22; O2SAT 88
[2025-01-08 20:39] VITALS: BP 169/60; PULSE 82; RESP 23; O2SAT 95
[2025-01-08 20:41] LABS: Lipase 22 U/L (13-75); Troponin T High Sensitivity 30 ng/L (<=22)
[2025-01-08 21:16] LABS: AST(SGOT) 23 U/L (<=37); Alanine Aminotransfer ALT/SGPT 24 U/L (<=46); Albumin, Serum 3.9 g/dL (3.4-4.8); Alkaline Phosphatase 82 U/L (40-129); Anion Gap 13 (5-15); BUN 17 mg/dL (4-19); BUN/Creat Ratio 19.4 RATIO (10-20); Calcium,Total 8.8 mg/dL (7.6-11.0); Carbon Dioxide 22.2 mmol/L (21.0-32.0); Chloride 94 mmol/L (98-108); Estimated Creatinine Clearance 103.03 ml/min (50-250); Globulin 2.6 g/dL (2.2-4.2); Glucose 193 mg/dL (70-99); Potassium 4.4 mmol/L (3.3-5.1)
[2025-01-08 21:17] LABS: Color, Urine Yellow (Yellow); Glucose, Dipstick 1000 mg/dl (Normal); Ketone-Dipstick Negative (Negative); Leukocyte Esterase-Dipstick Negative /ul (Negative); Nitrite-Dipstick Negative (Negative); Occult Blood-Urine Negative /ul (Negative); Protein-Dipstick 30 mg/dl (Negative); Specific Gravity, Urine 1.015 (1.002-1.030); Urine Bilirubin Dipstick Negative (Negative)
[2025-01-08 22:00] VITALS: BP 164/65; PULSE 73; RESP 18; O2SAT 96
[2025-01-08 22:03] LABS: Mucous, Urine 1+ /hpf (<or=2+); Red Blood Cells-Urine 0-5 SEEN /hpf (0-5)
[2025-01-08 22:05] LABS: Squamous Epithelial Cells - UA 0-5 SEEN /hpf (0-5)
[2025-01-08 23:02] LABS: D-Dimer Quantitative (DVT/PE) < 0.27 FEU/ug/m (0.27-0.49)
[2025-01-08 23:10] LABS: Pro- Brain NATRIURETIC PEPTIDE 1535 pg/mL (<=900)
[2025-01-08 23:10] LABS: Troponin T High Sens 2 HR 31 ng/L (<=22)
[2025-01-08 23:47] VITALS: BP 169/77; PULSE 79; RESP 18; TEMP 36.6; O2SAT 97
[2025-01-08 23:50] VITALS: BP 205/80; PULSE 79; RESP 20; TEMP 36.3; O2SAT 96
[2025-01-09] VITALS (9 sets, daily range): BP systolic 124–205; BP diastolic 56–91; PULSE 63–92; RESP 16–20; TEMP 36.3–37.1; O2SAT 96–98; BMI 33.8
[2025-01-09 01:41] LABS: Troponin T High Sens 4 HR 37 ng/L (<=22)
[2025-01-09] MEDS: CLARIFY ORDER 1 EACH NOTE (02:16)
[2025-01-09] MEDS: 0.9% Saline Lock 10 ML Syringe IV ×2 (02:17→21:28)
[2025-01-09 05:55] LABS: Hematocrit 28.9 % (40-54); Hemoglobin 10.2 g/dL (13.0-16.5); Immature Granulocytes Count 0.050 X10^3/uL (0.0-0.0); Mean Corp Hgb Conc 35.3 g/dL (32-36); Mean Corpuscular Volume 87.3 fL (80-94); Mean Platelet Vol. 9.4 fl (6.2-12.0); NRBC Flagged by Analyzer 0 % (0-5); POSITIVE DIFFERENTIAL YES; Platelet Count 296 K/mm3 (150-450); RBC Distribution Width CV 12.4 % (11.6-14.6); RBC Distribution Width SD 39.8 fl (35.1-43.9); Red Blood Count 3.31 M/mm3 (4.6-6.2); White Blood Count 12.2 K/mm3 (4.4-11.0)
[2025-01-09 06:03] LABS: Differential Indicated SCAN CRITERIA MET
[2025-01-09 06:43] LABS: Anion Gap 10 (5-15); BUN 14 mg/dL (4-19); BUN/Creat Ratio 15.1 RATIO (10-20); Calcium,Total 8.6 mg/dL (7.6-11.0); Carbon Dioxide 24.9 mmol/L (21.0-32.0); Chloride 94 mmol/L (98-108); Estimated Creatinine Clearance 91.52 ml/min (50-250); Glucose 127 mg/dL (70-99); Potassium 3.9 mmol/L (3.3-5.1)
[2025-01-09] MEDS: Polyethylene Glycol 3350 17 GM PACKET PO (10:00)
[2025-01-09] MEDS: Fluticasone 0.05% 1 SPRAY NASAL.SRY NASAL (21:31)
[2025-01-10] VITALS (7 sets, daily range): BP systolic 126–179; BP diastolic 60–85; PULSE 63–81; RESP 16–18; TEMP 36.4–37.1; O2SAT 93–98
[2025-01-10] MEDS: Fluticasone 0.05% 1 SPRAY NASAL.SRY NASAL (21:16)
[2025-01-11] VITALS (7 sets, daily range): BP systolic 140–169; BP diastolic 62–85; PULSE 67–75; RESP 17–18; TEMP 36.4–37; O2SAT 94–95
[2025-01-11] MEDS: Fluticasone 0.05% 1 SPRAY NASAL.SRY NASAL (22:12)
[2025-01-12 02:30] VITALS: BP 160/85; PULSE 62; RESP 16; TEMP 37; O2SAT 95
[2025-01-12] MEDS: 0.9% Saline Lock 10 ML Syringe IV ×2 (03:46→08:25)
[2025-01-12 06:08] VITALS: PULSE 62
[2025-01-12 07:33] VITALS: O2SAT 94
[2025-01-12 08:16] VITALS: BP 179/84; PULSE 78; RESP 17; TEMP 36.5; O2SAT 95
[2025-01-12] MEDS: Ergocalciferol 1.25 MG (50, 000 UNIT) Capsule PO (08:23)
[2025-01-12] MEDS: Polyethylene Glycol 3350 17 GM PACKET PO (08:26)
[2025-01-12 13:42] VITALS: BP 124/57; PULSE 78; RESP 17; TEMP 36.7; O2SAT 95
[2025-01-12 13:44] VITALS: PULSE 78
== END 2025-01-12 14:28 | disposition intermediate care facility (04) | DRG 291 ==
LOC: ED 01-09 00:06 → PCU 01-09 00:37
PROVIDERS: Admitting Provider Student in an Organized Health Care Education/Training Program; Emergency Provider Emergency Medicine; PCP Family Medicine; Visit Provider Hospitalist
DX: I11.0 Hypertensive heart disease with heart failure (principal); I50.31 Acute diastolic (congestive) heart failure; E87.1 Hypo-osmolality and hyponatremia; J90 Pleural effusion, not elsewhere classified; F84.0 Autistic disorder; N13.8 Other obstructive and reflux uropathy; E11.9 Type 2 diabetes mellitus without complications; G40.909 Epilepsy, unspecified, not intractable, without status epilepticus; E03.9 Hypothyroidism, unspecified; E66.811 Obesity, class 1; E78.5 Hyperlipidemia, unspecified; Z79.899 Other long term (current) drug therapy; R09.02 Hypoxemia; Z79.84 Long term (current) use of oral hypoglycemic drugs; R62.50 Unspecified lack of expected normal physiological development in childhood; Z79.890 Hormone replacement therapy; Z68.33 Body mass index [BMI] 33.0-33.9, adult; N40.1 Benign prostatic hyperplasia with lower urinary tract symptoms
CPT/HCPCS: 36415; 71045; 71046; 71275; 74177; 80048; 80053; 81001; 83690; 83880; 84484; 85025; 85379; 93005; 93306; 99285; P9612; Q9957; Q9967; A4216; C8929; J1938

== ENCOUNTER → 2025-02-16 | Outpatient (CLI) | payer MEDICARE, MEDICAID, SELFPAY ==
[2025-02-16 13:10] LABS: Mucous, Urine 0 SEEN /hpf (<or=2+); Red Blood Cells-Urine 0 SEEN /hpf (0-5); Squamous Epithelial Cells - UA 0 SEEN /hpf (0-5)
[2025-02-16 15:00] LABS: Hematocrit 38.3 % (40-54); Hemoglobin 13.1 g/dL (13.0-16.5); Immature Granulocytes Count 0.040 X10^3/uL (0.0-0.0); Mean Corp Hgb Conc 34.2 g/dL (32-36); Mean Corpuscular Volume 90.3 fL (80-94); Mean Platelet Vol. 9.9 fl (6.2-12.0); NRBC Flagged by Analyzer 0 % (0-5); Platelet Count 281 K/mm3 (150-450); RBC Distribution Width CV 12.7 % (11.6-14.6); RBC Distribution Width SD 41.7 fl (35.1-43.9); Red Blood Count 4.24 M/mm3 (4.6-6.2); White Blood Count 11.1 K/mm3 (4.4-11.0)
[2025-02-16 15:20] LABS: Color, Urine Yellow (Yellow); Glucose, Dipstick Normal (Normal); Ketone-Dipstick Negative (Negative); Leukocyte Esterase-Dipstick Negative /ul (Negative); Nitrite-Dipstick Negative (Negative); Occult Blood-Urine Negative /ul (Negative); Protein-Dipstick Negative (Negative); Specific Gravity, Urine 1.010 (1.002-1.030); Urine Bilirubin Dipstick Negative (Negative)
[2025-02-16 15:43] LABS: AST(SGOT) 19 U/L (<=37); Alanine Aminotransfer ALT/SGPT 17 U/L (<=46); Albumin, Serum 4.1 g/dL (3.4-4.8); Alkaline Phosphatase 84 U/L (40-129); Anion Gap 14 (5-15); BUN 14 mg/dL (4-19); BUN/Creat Ratio 13.7 RATIO (10-20); Calcium,Total 8.6 mg/dL (7.6-11.0); Carbon Dioxide 24.3 mmol/L (21.0-32.0); Chloride 98 mmol/L (98-108); Globulin 2.5 g/dL (2.2-4.2); Glucose 147 mg/dL (70-99); Potassium 4.2 mmol/L (3.3-5.1)
--- OUTSIDE RECORDS SUMMARY | 2025-02-16 17:53 | XMS RPT_ITS | CCD ---
Author Organization [facility] [employer] Care Team Providers Care Fagot Maker Name Role Phone Dr. Dean Felipe Chi Primary Care Provider Matteo, Dr. Dean Mathis Referring Provider Tevin ART OBJECTS SALESPERSON, TANESHA Moe Attending Provider Matteo, Dr. Dean Mathis Primary Care Provider [phone] Jefferson Lazar Emergency Provider [phone] Alice Mckeon Attending Provider Dr. Alice Mckeon Admit Provider Dr. Alice Mckeon Other Provider Matteo, Dr. Dean Mathis Referring Provider Dr. Vini Feliciano Attending Provider Dr. Dean Felipe Chi Primary Care Provider [phone] Matteo, Dr. Dean Mathis Referring Provider Dr. Vini Feliciano Attending Provider Dr. Dean Felipe MD, Chi Primary Care Provider [phone] Dr. Chet Grover MD Attending Provider Dr. Chet Grover MD Emergency Provider Dr. Dean Felipe MD, Chi Referring Provider [phone] Vini Feliciano MD Attending Provider [phone] Shane ROMO, Eddi Primary Care Provider [phone] Eddi Lynn MD Attending Provider Eddi Lynn MD Referring Provider Dr. Vini Feliciano MD Referring Provider Shane ROMO, Eddi Primary Care Provider Shane ROMO, Eddi Attending Provider Shane ROMO, Eddi Referring Provider Imer ART OBJECTS SALESPERSON-C, Aydee Attending Provider Imer ART OBJECTS SALESPERSON-C, Aydee Referring Provider Shane ROMO, Eddi Primary Care Provider Matteo ROMO, Dr. Dean Mathis Referring Provider Jodie ROMO, Dr. Martini Attending Provider Shane ROMO, Eddi Primary Care Physician Imer ART OBJECTS SALESPERSON-C, Aydee Attending Physician Jodie ROMO, Dr. Martini Attending Physician Dr. Lory Wolff DO Attending Physician Dr. Lory Wolff DO Emergency Department Physi gini Dr. Chet Grover MD Emergency Department Physician Dr. Chet Grover MD Attending Physician Eddi Lynn MD Attending Physician Shane ROMO, Eddi Referring Provider Dr. Nestor Stauffer DO Emergency Department Physic po Dr. Jorge Herrera DO Admitting Physician Ynes vailable Dr. Jorge Herrera DO Attending Physician Ynes vailable Shane ROMO, Eddi Primary Care Physician Imer ART OBJECTS SALESPERSON-C, Aydee Attending Physician Imer ART OBJECTS SALESPERSON-C, Aydee Referring Provider Matteo ROMO, Dr. Dean Mathis Referring Provider Dr. Vini Feliciano MD Attending Physician Dr. Lory Wolff DO Attending Physician Dr. Rafiq Wolff DOey Emergency Department Physi gini Reilly ROMO, Dr. Rosenberg Attending Physician Reilly ROMO, Dr. Rosenberg Emergency Department Physician Shane ROMO, Eddi Attending Physician Shane ROMO, Eddi Referring Provider Sheldon DISLA, Dr. Baez Emergency Department Physic po de Kishore DISLA, Dr. Patel Admitting Physician Ynes vailable Herrera DO, Dr. Patel Nurse Practitioner Unav ailable Mike DISLA, Dr. Jenkins Attending Physician Mike DISLA, Dr. Jenkins Nurse Practitioner Byron ROMO, Dr. Sheikh Emergency Department Physici an Robi ROMO, Dr. Katie Florence Admitting Physician Robi ROMO, Dr. Katie Florence Nurse Practitioner Jase DISLA, Dr. Bowden Attending Physician Latanya DISLA, Dr. Nicole Nurse Practitioner Cielo ROMO, Dr. Jacques Attending Physician Latanya DISLA, Dr. Nicole Attending Physician Jase DISLA, Dr. Bowden Nurse Practitioner Vini Feliciano Attending Unavailable Matteo, Dean Chi Referring Unavailable Matteo, Dean Chi Primary Care Unavailable Vini Feliciano Attending Unavailable Matteo, Dean Chi Referring Unavailable Shane, Chalon Primary Care Unavailable Shane, Chalon Primary Care Unavailable Grover, Chet Attending Unavailable Matteo, Dean Chi Primary Care Unavailable Grover, Chet Attending Unavailable Kipam, Katie Ludivina Consulting Unavailable Shane, Chalon Primary Care Unavailable Corey Pelaez Attending Unavailable Kipam, Katie Ludivina Admitting Unavailable JenakyCorey Consulting Unavailable Kal Laguna Attending Unavailable Kal Laguna Consulting Unavailable Shane, Chalon Attending Unavailable Shane, Chalon Referring Unavailable Shane, Chalon Primary Care Unavailable Shane, Chalon Primary Care Unavailable Jorge Herrera Admitting Unavailable Alice Mckeon Attending Unavailable Jorge Herrera Consulting Unavailable Shane, Eddi Attending Unavailable Shane, Chalon Referring Unavailable Shane, Chalon Primary Care Unavailable Kal Laguna Attending Unavailable Koram, Katie Ludivina Consulting Unavailable Koram, Katie Ludivina Admitting Unavailable Shane, Chalon Primary Care Unavailable Corey Pelaez Consulting Unavailable Jorge Herrera Admitting Unavailable Jorge Herrera Attending Unavailable Shane, Chalon Primary Care Unavailable Jorge Herrera Consulting Unavailable Alice Mckeon Attending Unavailable Alice Mckeon Consulting Unavailable Koram, Katie Ludivina Attending Unavailable Shane, Chalon Primary Care Unavailable Sawyer Buck Attending Unavailable Vini Feliciano Attending Unavailable Vini Feliciano Referring Unavailable Shane, Chalon Primary Care Unavailable Shane, Eddi Attending Unavailable Shane, Chalon Referring Unavailable Shane, Chalon Primary Care Unavailable Imer ART OBJECTS SALESPERSONAydee Attending Unavailable Imer ART OBJECTS SALESPERSON, Aydee Referring Unavailable Shane, Chalon Primary Care Unavailable Shane, Chalon Primary Care Unavailable Lory Wolff Attending Unavailable Eddi Lynn MD Primary Care Physician [phone] Imer ART OBJECTS SALESPERSON-CAydee Attending Physician Imer ART OBJECTS SALESPERSON-CAydee Referring Provider Dr. Dean Felipe MD, Chi Referring Provider Dr. Vini Feliciano MD Attending Physician Dr. Lory Wolff DO Attending Physician Dr. Lory Wolff DO Emergency Department Physi gini Dr. Chet Grover MD Attending Physician Dr. Chet Grover MD Emergency Department Physician Eddi Lynn MD Attending Physician Eddi Lynn MD Referring Provider [phone] Nestor Stauffer DO Emergency Department Physic po Dr. Jorge Herrera DO Admitting Physician Ynes vailable Dr. Jorge Herrera DO Nurse Practitioner Unav ailable Mike DISLA, Dr. Jenkins Attending Physician [phone] Mike DISLA, Dr. Jenkins Nurse Practitioner Byron ROMO, Dr. Sheikh Emergency Department Physici an Robi ROMO, Dr. Katie Florence Admitting Physician [phone] Robi ROMO, Dr. Katie Florence Nurse Practitioner Dr. Kal Laguna DO Attending Physician Latanya DISLA, Dr. Nicole Nurse Practitioner [phone] Cielo ROMO, Dr. Jacques Attending Physician Latanya DISLA, Dr. Nicole Attending Physician Jase DISLA, Dr. Bowden Nurse Practitioner Allergies Allergy Classification Reported Allergen(s) Allergy Type Date of Onset Reaction(s) Facility (4 sources) hydroCHLOROthiazide Drug Allergy 12-31-19 25 Hyponatremia [facility] (4 sources) metFORMIN Drug Allergy 12-31-19 25 Lactic Acidosis [facility] (1 source) hydroCHLOROthiazide Drug Allergy 12-31-19 25 [facility] Repository (1 source) metFORMIN Drug Allergy 12-31-19 25 [facility] Repository Medications Current Medications Medication Drug Class(es) Dates Sig (Normalized) Sig (Original) amLODIPine 10 mg oral tablet (6 sources) Dihydropyridine Calcium Channel Ananda Start: 12-19-2024 atorvastatin 40 mg oral tablet (20 sources) HMG-CoA Reductase Inhibitor Start: 11-27-2019 Start: 11-27-2019 take 1 tablet by vincent at bedtime Atorvastatin 40 mg tablet Active 40 mg PO AT BEDTIME November 27, 2019 12:00am Complies with drug therapy beta carotene 30 mg oral cap edi (6 sources) Start: 12-22-2024 Start: 12-22-2024 take 1 capsule by mo [facility] once daily Beta Carotene 30 mg capsule Active 30 mg PO DAILY December 22, 2024 12:00am Complies with drug therapy carvedilol 25 mg oral tablet (3 sources) alpha-Adrenergic Ananda, beta-Adrenergic Ananda Start: 01-02-2025 chlorhexidine gluconate 1.2 mg/ml mouthwash (20 sources) Start: 12-02-2019 End: 11-26-2024 Start: 12-02-2019 End: 11-26-2024 Chlorhexidine Gluconate 0.12 % mouthwash Discontinued 15 mL BUCCAL DAILY December 02, 2019 12:00am November 26, 2024 10:42am [place] 6-Wtp-Dua-Fish Oil (20 sources) Start: 07-16-2016 [place] 3-Dha-Ep a-Fish Oil Active 1 EACH PO TWICE A DAY July 16, 2016 8:26am Start: 07-16-2016 End: 01-08-2025 Start: 07-16-2016 take 1 capsule by [facility] twice daily [place] 2-Dvk-Exb-Fish Oil 1 EACH capsule Active 1 NMA PO TWICE A DAY July 16, 2016 12:00am Complies with drug therapy Start: 07-16-2016 take 1 capsule by [facility] twice daily [place] 3-Fxv-Qou-Fish Oil 1 EACH capsule Active 1 NMA PO TWICE A DAY July 16, 2016 12:00am Start: 07-16-2016 [place] 3-Dha-Ep a-Fish Oil Active 1 EACH PO TWICE A DAY July 15, 2016 11:00pm Start: 07-16-2016 [place] 3-Dha-Ep a-Fish Oil Active 1 EACH PO TWICE A DAY July 16, 2016 12:00am fluticasone propionate 0.05 mg/actuat metered dose nasal spray (20 sources) Corticosteroid Start: 12-02-2019 Start: 12-02-2019 Fluticasone Pr opionate 50 mcg/actuation spray,suspension Active 1 NMA INTRANASAL DAILY December 02, 2019 12:00am administer into each nostril Start: 12-02-2019 take 1 spray(s) nasa l route once daily Fluticasone Propionate Active 1 SPRAY INTRANASAL DAILY December 02, 2019 12:00am administer into each nostril furosemide 40 mg oral tablet (3 sources) Loop Diuretic Start: 01-13-2025 Start: 01-13-2025 Start: 01-13-2025 hydrALAZINE hydrochloride 50 mg oral tablet (3 sources) Arteriolar Vasodilator Start: 01-02-2025 levETIRAcetam 750 mg oral ta blet (20 sources) Start: 01-08-2025 Start: 01-08-2025 Start: 12-22-2024 End: 01-08-2025 Start: 12-22-2024 take 1 tablet by vincent th twice daily Levetiracetam 1,000 mg tablet Active 1000 mg PO TWICE A DAY December 22, 2024 12:00am Complies with drug therapy Start: 11-26-2024 End: 11-26-2024 Start: 05-28-2024 End: 12-22-2024 Start: 11-28-2023 End: 05-28-2024 Start: 07-27-2021 End: 05-28-2024 Start: 07-16-2016 End: 07-27-2021 Start: 07-16-2016 End: 07-27-2021 take 1 tablet by mouth twice daily Levetiracetam 750 mg tablet Discontinued 750 mg PO TWICE A DAY 60 February 01, 2021 2:18pm July 27, 2021 1:34pm levothyroxine sodium 0.05 mg oral tablet (20 sources) l-Thyroxine Start: 11-28-2023 Start: 12-02-2019 End: 11-28-2023 Start: 11-27-2019 End: 12-02-2019 loratadine 10 mg oral tablet (20 sources) Start: 07-16-2016 metFORMIN hydrochloride 1000 mg oral tablet (20 sources) Biguanide Start: 11-27-2019 Multivitamin preparation (10 sources) Start: 12-02-2019 take [...] 02, 2019 12:00am olmesartan medoxomil 40 mg o ral tablet (14 sources) Angiotensin 2 Receptor Ananda Start: 11-26-2024 End: 11-26-2024 polyethylene glycol 3350 170 00 mg powder for oral solution (20 sources) Osmotic Laxative Start: 01-08-2025 Start: 01-08-2025 Start: 12-02-2019 End: 01-08-2025 risperiDONE 3 mg oral tablet (20 sources) Atypical Antipsychotic Start: 01-08-2025 Start: 01-08-2025 Start: 01-08-2025 End: 01-08-2025 Start: 07-16-2016 End: 01-08-2025 Start: 07-16-2016 take 1 tablet by vincent th at bedtime Risperidone 3 MG tablet Active 3 mg PO AT BEDTIME July 16, 2016 12:00am Complies with drug therapy sodium chloride 1000 mg oral tablet (3 sources) Start: 01-02-2025 tamsulosin hydrochloride 0.4 mg oral capsule (20 sources) alpha-Adrenergic Ananda Start: 12-02-2019 vitamin b12 1 mg sublingual tablet (3 sources) Vitamin B12 Start: 01-08-2025 Start: 01-08-2025 (9 sources) Start: 01-08-2025 Start: 12-02-2019 End: 11-26-2024 Start: 07-16-2016 End: 11-27-2019 Completed/Discontinued Medications Medication Drug Class(es) Dates Sig (Normalized) Sig (Original) acetaminophen 325 mg oral tablet (3 sources) Start: 01-08-2025 End: 01-08-2025 calcium polycarbophil 625 mg oral tablet (20 sources) Start: 07-16-2016 End: 12-02-2019 cholecalciferol 1.25 mg oral capsule (20 sources) Vitamin D Start: 08-03-2020 End: 05-28-2024 Start: 08-03-2020 End: 02-01-2021 take 1 capsule by mouth every week Cholecalciferol (Vitamin D3) 1,250 mcg (50,000 unit) capsule Discontinued 1250 ug PO EVERY WEEK 4 August 03, 2020 12:00am February 01, 2021 2:20pm dexamethasone 4 mg oral tabl et (14 sources) Corticosteroid Start: 11-05-2022 End: 11-28-2022 Start: 11-05-2022 End: 11-28-2022 take 6 mg by mouth once daily Dexamethasone Discontinu ed 6 MG PO DAILY November 05, 2022 12:00am November 28, 2022 9:05am docusate sodium 100 mg oral capsule (20 sources) Start: 07-16-2016 End: 12-02-2019 docusate sodium 50 mg / amy osides, [facility] 8.6 mg oral tablet (20 sources) Start: 12-02-2019 End: 08-03-2020 Start: 12-02-2019 End: 08-03-2020 Sennosides-Docusate Sodium ( Senexon-S) 8.6-50 mg tablet Discontinued 2 NMA PO TWICE A DAY December 02, 2019 12:00am August 03, 2020 1:31pm hydroCHLOROthiazide 25 mg or al tablet (16 sources) Thiazide Diuretic Start: 01-08-2025 End: 01-08-2025 Start: 01-08-2025 End: 01-08-2025 Start: 12-30-2024 End: 01-02-2025 Start: 12-22-2024 End: 12-30-2024 Start: 12-22-2024 take 1 tablet by mouth once da rima in the morning lisinopril 2.5 mg oral tablet (20 sources) Angiotensin Converting Enzyme Inhibitor Start: 08-03-2020 End: 05-30-2023 mecobalamin 1 mg chewable tablet (20 sources) Start: 02-18-2020 End: 01-08-2025 Multivitamin tablet (7 sources) Start: 12-02-2019 End: 11-26-2024 Multivitamin tablet [...] 11:39am Multivitamin With Minerals 1 EACH tablet (7 sources) Start: 07-16-2016 End: 11-27-2019 take 1 tablet by mouth once daily Multivitamin With Minerals 1 EACH tablet Discontinued 1 NMA PO DAILY July 16, 2016 12:00am November 27, 2019 11:39am PHENobarbital 60 mg oral tablet (20 sources) Start: 07-16-2016 End: 11-26-2024 Start: 07-16-2016 End: 11-26-2024 take 1 tablet by mouth at bedtime [...] 27, 2021 1:36pm simvastatin 10 mg oral table t (20 sources) HMG-CoA Reductase Inhibitor Start: 07-16-2016 End: 11-27-2019 Start: 07-16-2016 End: 11-27-2019 take 1 tablet by mouth at bedtime Simvastatin 10 MG tablet Discontinued 10 mg PO AT BEDTIME July 16, 2016 12:00am November 27, 2019 11:38am Problems Active Problems Problem Classification Problem Date Documented Da te Episodic/Chronic Congestive heart failure; nonhypertensive (7 sources) Congestive heart failure; Translations: [Heart failure, unspecified] Onset: 01-15-2025 01-20-2025 Chronic Developmental disorders (16 sources) Nonverbal learning disorder; 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] 05-30-2024 Chronic Diabetes mellitus without complication (9 sources) Type 2 diabetes mellitus; Translations: [Type 2 diabetes mellitus without complications] Onset: 01-16-2025 12-30-2024 Chronic Diseases of white blood cells (9 sources) Leukocytosis; Translations: [Elevated white blood cell count, unspecified] Onset: 01-06-2025 12-30-2024 Chronic Disorders usually diagnosed in infancy, childhood, or adolescence (6 sources) Autism spectrum disorder; Translations: [Autistic disorder] 12-22-2024 Chronic E Codes: Adverse effects of medical drugs (18 sources) Adverse reaction to drug; Translations: [Adverse effect of unspecified drugs, medicaments and biological substances, initial encounter] Onset: 01-06-2025 12-30-2024 Episodic E Codes: Fall (20 sources) Fall; Translations: [Unspecified fall, initial encounter] 11-04-2022 Episodic Epilepsy; convulsions (20 sources) Epilepsy, not refractory; Translations: [Epilepsy, unspecified, not intractable, without status epilepticus] Onset: 06-22-2024 Chronic Essential hypertension (20 sources) Malignant essential hypertension; Translations: [Essential (primary) hypertension] Onset: 01-06-2025 12-22-2024 Chronic Fluid and electrolyte disorders (20 sources) Hyponatremia; Translations: [Hypo-osmolality and hyponatremia] Onset: 01-06-2025 12-30-2024 Episodic Hyperplasia of prostate (9 sources) Benign prostatic hypertrophy with outflow obstruction; Translations: [Benign prostatic hyperplasia with lower urinary tract symptoms] Onset: 01-06-2025 12-30-2024 Chronic Malaise and fatigue (10 sources) Asthenia; Translations: [Weakness] Onset: 01-06-2025 12-30-2024 Episodic Nutritional deficiencies (20 sources) Vitamin D deficiency; Translations: [Vitamin D deficiency, unspecified] Chronic Nutritional deficiencies (20 sources) Cobalamin deficiency; Translations: [Deficiency of other specified B group vitamins] Episodic Other circulatory disease (6 sources) H/O: hypertension; Translations: [Personal history of other diseases of the circulatory system] 01-20-2025 Episodic Other connective tissue disease (8 sources) Recurrent falls ; Translations: [Repeated falls] 12-30-2024 Episodic Other connective tissue disease (1 source) Repeated falls; Translations: [Repeated falls] Onset: 01-06-2025 Episodic Other diseases of kidney and ureters (1 source) Other obstructive and reflux uropathy; Translations: [Other obstructive and reflux uropathy] Onset: 01-06-2025 Episodic Other lower respiratory disease (15 sources) Hypoxemia; Translations: [Hypoxemia] 11-04-2022 Episodic Other lower respiratory disease (3 sources) Hypoxemia; Translations: [Hypoxemia] 11-04-2022 Episodic Other lower respiratory disease (6 sources) Dyspnea; Translations: [Dyspnea, unspecified] 01-20-2025 Episodic Other lower respiratory disease (6 sources) Hypoxia; Translations: [Hypoxemia] 01-20-2025 Episodic Other lower respiratory disease (1 source) Dyspnea, unspecified; Translations: [Dyspnea, unspecified] Onset: 01-15-2025 Episodic Other non-traumatic joint disorders (10 sources) Hip pain; Translations: [Pain in left hip] 05-30-2024 Episodic Other nutritional; endocrine; and metabolic disorders (8 sources) Obese class I; Translations: [Class 1 obesity] 12-30-2024 Chronic Other nutritional; endocrine; and metabolic disorders (6 sources) H/O: diabetes mellitus; Translations: [Personal history of other endocrine, nutritional and metabolic disease] 01-20-2025 Episodic Residual codes; unclassified (8 sources) Personal history of other specified conditions; Translations: [History of seizure] 12-30-2024 Episodic Schizophrenia and other psychotic disorders (9 sources) Schizophrenia; Translations: [Schizophrenia, unspecified] Onset: 01-06-2025 12-30-2024 Chronic Spondylosis; intervertebral disc disorders; other back problems (10 sources) Backache; Translations: [Dorsalgia, unspecified] 05-30-2024 Episodic Unclassified (1 source) Acidosis, unspecified; Translations: [Acidosis, unspecified] Onset: 01-06-2025 Unclassified (1 source) Obesity, class 1; Translations: [Obesity, class 1] Onset: 01-06-2025 Viral infection (18 sources) Disease caused by 2019-nCoV; Translations: [COVID-19] 11-04-2022 Episodic Past or Other Problems Problem Classification Problem Date Documented Da te Episodic/Chronic Other aftercare (1 source) Other long term care phlebotomist (current) drug therapy; Translations: [Other long term care phlebotomist (current) drug therapy] Onset: 10-21-2024 Episodic Other injuries and conditions due to external causes (1 source) Encounter for examination and observation following other accident; Translations: [Encounter for examination and observation following other accident] Onset: 06-04-2024 Episodic Other non-traumatic joint disorders (1 source) Pain in right hip; Translations: [Pain in right hip] Onset: 06-09-2024 Episodic Results Test Name Value Interpretation Reference Range Facility Discharge Instructionon 12-25 Discharge Instruction [facility] Medical Records Department [address] [place] [address] Instructions for Home/Discharge Instructions 01/12/25 1233 MR#: [id number] Acct: [id number] Name: NAYLA BENNETT Rep #: [id number] : 1955 69 From: Kal Laguna DO PCP: Dr. Eddi Lynn MD Status:ADM IN Discharge Instructions DC O2, CPAP, BIPAP needs Home O2 Discharge instructions: No Dressing / Incision Discharge Activity: No Restrictions Follow Up Care Test Results: Test results from this visit will be discussed in further detail at your follow-up appointment, if applicable. Discharge Plan Admission Admit Date/Time: 01/09/25 00:01 Primary Reason for Your Visit: Shortness of breath Attending Provider: Kal Laguna Primary Care Provider: Eddi Lynn Consulting Providers: Katie Rosenbaum; Corey Pelaez Instructions Additional Instructions / Restrictions: Start taking Lasix 40 mg daily. Please have a repeat BMP drawn in 5 to 7 days to monitor kidney function. Discharge Orders/Prescriptions Prescriptions: New furosemide 40 mg Tablet 40 mg PO DAILY 30 Days Qty: 30 0RF Continued metformin 1,000 mg tablet 1,000 mg PO BID atorvastatin 40 mg tablet 40 mg PO QHS fluticasone propionate 50 mcg/actuation spray,suspension 1 spray INTRANASAL QHS Rx Instructions: administer into each nostril tamsulosin 0.4 mg capsule 0.4 mg PO DAILY chlorhexidine gluconate 0.12 % mouthwash 15 ml BUCCAL BID levothyroxine 50 mcg tablet 50 mcg PO QDAY cholecalciferol (vitamin D3) 1,250 mcg (50,000 unit) capsule 1,250 mcg PO QMONTH Qty: 1 7RF Patient Comments: TAKES ON THE OF EACH MONTH olmesartan 40 mg tablet 40 mg PO QAM Qty: 30 6RF phenobarbital 60 mg tablet 120 mg PO QHS Qty: 56 5RF loratadine 10 MG tablet 10 mg PO DAILY beta carotene 30 mg capsule 30 mg PO DAILY carvedilol 25 mg Tablet 25 mg PO BIDCM Qty: 60 2RF hydralazine 50 mg Tablet 50 mg PO TID Qty: 90 2RF sodium chloride 1,000 mg Tablet,Soluble 1,000 mg PO TID Qty: 90 0RF amlodipine [Norvasc] 10 mg tablet 10 mg PO DAILY Qty: 30 0RF cyanocobalamin (vitamin B-12) 1,000 mcg tablet, sublingual 1,000 mcg sublingual DAILY levetiracetam 750 mg tablet 1,500 mg PO BID polyethylene glycol 3350 17 gram/dose powder 17 g PO BID Rx Instructions: MIX IN 4-8OZ WATER omega-3 fatty acids-fish oil 300-1,000 mg capsule 1 cap PO BID risperidone [Risperdal] 3 mg tablet 3 mg PO QHS Other Ambulatory Orders: Basic Metabolic Profile (BMP) (Routine) Timeframe: 5 Days Facility: [facility] - Location: Laboratory Ordered By: Dr. Kal Laguna Referrals / Follow Up: Eddi Lynn MD [Primary Care Provider, Family Practice] Disposition Disposition (needs filled in before D/C Order can be placed): NonSkilled NH/Intermed Care 01/12/25 1317 Kal Laguna DO CC: Dr. Eddi Lynn MD; Dr. Corey Pelaez DO; Dr. Katie Rosenbaum MD Signed Normal [facility] Chest 1 View (Portable)on Chest 1 View (Portable) [facility] Imaging Services [address] [place] [address] Chest 1 View (Portable) MR#: [id number] Acct: [id number] Name: NAYLA BENNETT Rep #: [id number] : 1955 M 69 From: Sonam Matson MD PCP: Dr. Eddi Lynn MD Status: ADM IN Study: Chest 1 View (Portable) Date of Exam: 01/11/25 Exam# [id number] Ordering Dr: Corey Pelaez DO PROCEDURE: CHEST 1 VIEW (PORTABLE) 01/11/2025 REASON FOR EXAM: CHF TECHNIQUE: Frontal view of the chest. COMPARISON: CTA chest 03/10/2025. FINDINGS: Hardware: Monitor electrodes overlie the chest. Heart: Large cardiomegaly. Lungs: Diffuse interstitial pulmonary densities consistent with pulmonary CHF. Obliteration of the costophrenic angles consistent with small pleural effusions. No pneumothorax. Bones: No acute bony abnormalities. RAD/Chest 1 View (Portable) IMPRESSION: Diffuse interstitial pulmonary densities consistent with CHF. Obliteration of the costophrenic angles consistent with small pleural effusions. Reading Location: [facility] CC: Dr. Eddi Lynn MD; Dr. 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 Normal [facility] Absolute lymphocyte countOrd ered By: Katie Rosenbaum on 01-09-2025 Lymphocytes Auto (Unsp spec) [#/Vol] 2.10 10*3/uL 0.83-4.51 [facility] Anion gap in Serum or Plasma Ordered By: Katie Rosenbaum on 01-09-2025 Anion gap [Moles/Vol] 10 mmol/L 5-15 [facility] Automated lymphocyte count a s percentage of total leukocytesOrdered By: Katie Rosenbaum on 01-09-2025 Lymphocytes/100 WBC Auto (Unsp spec) 17.2 % Low 19-41 [facility] BUN/creatinine ratioOrdered By: Katie Shingarret on 01-09-2025 Urea nitrogen/Creatinine [Mass ratio] 15.1 mg/mg - [facility] Basic Metabolic Profile (BMP )on 01-09-2025 BUN/CRE 15.1 RATIO Normal 01-12 [facility] Comment on above: Performed By: #### L 501.2300, L500.4100, L100.0100 #### [facility] [address] [place], [address] Calcium [Mass/Vol] 8.6 mg/dL Normal 7.6-11.0 [facility] Comment on above: Performed By: #### L 501.2300, L500.4100, L100.0100 #### [facility] [address] [place], [address] Chloride [Moles/Vol] 94 mmol/L Low 98-108 [facility] Comment on above: Performed By: #### L 501.2300, L500.4100, L100.0100 #### [facility] [address] [place], [address] CO2 [Moles/Vol] 24.9 mmol/L Normal 21.0-32.0 [facility] Comment on above: Performed By: #### L 501.2300, L500.4100, L100.0100 #### [facility] [address] [place], [address] Creatinine [Mass/Vol] 0.92 mg/dL Normal 0.70-1.20 [facility] Comment on above: Performed By: #### L 501.2300, L500.4100, L100.0100 #### [facility] [address] [place], [address] ECRCL 91.52 ml/min Normal 50-250 [facility] Comment on above: Performed By: #### L 501.2300, L500.4100, L100.0100 #### [facility] [address] [place], [address] GAP 10 Normal 5-15 [facility] Comment on above: Performed By: #### L 501.2300, L500.4100, L100.0100 #### [facility] [address] [place], [address] GFR/1.73 sq M.predicted among non-blacks MDRD (S/P/Bld) [Vol rate/Area] 90 mL/min/{1.73_m2} Normal >60 [facility] Comment on above: Result Comment: mL/m in/1.73m2 CKD-EPI Creatinine Equation (2020) Performed By: #### L 501.2300, L500.4100, L100.0100 #### [facility] [address] [place], [address] Glucose [Mass/Vol] 127 mg/dL High 70-99 [facility] Comment on above: Performed By: #### L 501.2300, L500.4100, L100.0100 #### [facility] [address] [place], [address] Potassium [Moles/Vol] 3.9 mmol/L Normal 3.3-5.1 [facility] Comment on above: Performed By: #### L 501.2300, L500.4100, L100.0100 #### [facility] [address] [place], [address] Sodium [Moles/Vol] 129 mmol/L Low 133-145 [facility] Comment on above: Performed By: #### L 501.2300, L500.4100, L100.0100 #### [facility] [address] [place], [address] Urea nitrogen [Mass/Vol] 14 mg/dL Normal 4-19 [facility] Comment on above: Performed By: #### L 501.2300, L500.4100, L100.0100 #### [facility] [address] [place], [address] Basophil percentageOrdered B y: Katie Rosenbaum on 01-09-2025 Basophils/100 WBC (Bld) 0.2 % 0-1 [facility] CBC W/Diff, Automatedon 12-24 Absolute Lymph 2.10 X10 3/uL Normal 0.83-4.51 [facility] Comment on above: Performed By: #### L 501.2300, L500.4100, L100.0100 #### [facility] [address] [place], [address] Absolute Neut 8.3 X10 3/uL High 2.0-7.7 [facility] Comment on above: Performed By: #### L 501.2300, L500.4100, L100.0100 #### [facility] [address] [place], [address] Basophils/100 WBC (Bld) 0.2 % Normal 0-1 [facility] Comment on above: Performed By: #### L 501.2300, L500.4100, L100.0100 #### [facility] [address] [place], [address] Eosinophils/100 WBC (Bld) 0.3 % Normal 0-5 [facility] Comment on above: Performed By: #### L 501.2300, L500.4100, L100.0100 #### [facility] [address] [place], [address] Erythrocyte distribution width (RBC) [Ratio] 12.4 % Normal 11.6-14.6 [facility] Comment on above: Performed By: #### L 501.2300, L500.4100, L100.0100 #### [facility] [address] [place], [address] Hematocrit (Bld) [Volume fraction] 28.9 % Low 40-54 [facility] Comment on above: Performed By: #### L 501.2300, L500.4100, L100.0100 #### [facility] [address] [place], [address] Hemoglobin (Bld) [Mass/Vol] 10.2 g/dL Low 13.0-16.5 [facility] Comment on above: Performed By: #### L 501.2300, L500.4100, L100.0100 #### [facility] [address] [place], [address] IG% 0.400 Normal 0.0-0.9 [facility] Comment on above: Result Comment: IG% - Immature Granulocytes (promyelocytes, myelocytes and metamyelocytes) > 1% indicates that a LEFT SHIFT is Present. Performed By: #### L 501.2300, L500.4100, L100.0100 #### [facility] [address] [place], [address] Lymphocytes/100 WBC (Bld) 17.2 % Low 19-41 [facility] Comment on above: Performed By: #### L 501.2300, L500.4100, L100.0100 #### [facility] [address] [place], [address] MCH (RBC) [Entitic mass] 30.8 pg Normal 27.0-32.0 [facility] Comment on above: Performed By: #### L 501.2300, L500.4100, L100.0100 #### [facility] [address] [place], [address] MCHC (RBC) [Mass/Vol] 35.3 g/dL Normal 32-36 [facility] Comment on above: Performed By: #### L 501.2300, L500.4100, L100.0100 #### [facility] [address] [place], [address] MCV (RBC) [Entitic vol] 87.3 fL Normal 80-94 [facility] Comment on above: Performed By: #### L 501.2300, L500.4100, L100.0100 #### [facility] [address] [place], [address] Monocytes/100 WBC (Bld) 13.7 % High 0-10 [facility] Comment on above: Performed By: #### L 501.2300, L500.4100, L100.0100 #### [facility] [address] [place], [address] Neutrophils/100 WBC (Bld) 68.2 % Normal 47-70 [facility] Comment on above: Performed By: #### L 501.2300, L500.4100, L100.0100 #### [facility] [address] [place], [address] Nucleated RBC (Bld) [#/Vol] 0 10*3/uL Normal 0-5 [facility] Comment on above: Performed By: #### L 501.2300, L500.4100, L100.0100 #### [facility] [address] [place], [address] Platelet mean volume (Bld) [Entitic vol] 9.4 fL Normal 6.2-12.0 [facility] Comment on above: Performed By: #### L 501.2300, L500.4100, L100.0100 #### [facility] [address] [place], [address] Platelets (Bld) [#/Vol] 296 10*3/uL Normal 150-450 [facility] Comment on above: Performed By: #### L 501.2300, L500.4100, L100.0100 #### [facility] [address] [place], [address] RBC (Bld) [#/Vol] 3.31 10*6/uL Low 4.6-6.2 [facility] Comment on above: Performed By: #### L 501.2300, L500.4100, L100.0100 #### [facility] [address] [place], [address] RDW SD 39.8 fl Normal 35.1-43.9 [facility] Comment on above: Performed By: #### L 501.2300, L500.4100, L100.0100 #### [facility] [address] [place], [address] WBC (Bld) [#/Vol] 12.2 10*3/uL High 4.4-11.0 [facility] Comment on above: Performed By: #### L 501.2300, L500.4100, L100.0100 #### [facility] [address] [place], [address] Carbon dioxide, total [Moles /volume] in Central venous bloodOrdered By: Katie Rosenbaum on 01-09-2025 CO2 [Moles/Vol] 24.9 mmol/L 21.0-32.0 [facility] Chloride assayOrdered By: Linda Rosenbaum on 01-09-2025 Chloride [Moles/Vol] 94 mmol/L Low 98-108 [facility] Echo Complete W/ Contraston 01-09-2025 Echo Complete W/ Contrast [facility] [address] [place] [address] Echo Complete W/ Contrast 01/09/25 1014 MR#: [id number] Acct: [id number] Name: NAYLA BENNETT Rep #: [id number] : 1955 69 From: Sawyer Buck MD Attending Dr: Dr. Corey Pelaez, DO Status: A DM IN Ordering Dr: Katie Rosenbaum MD Date: 01/09/25 Location: [facility] Sex: M C Admitted: 01/09/25 Reason For Study Reason For Study: CHF Procedure This was a 2D Doppler, Color Flow transthoracic echocardiogram. The study was technically difficult. Exam performed portable in patient room. Left Ventricle Normal LV size. Moderate concentric left ventricular hypertrophy. Left ventricular systolic function is normal. The left ventricular ejection fraction is 65 %. Stage 3 diastolic dysfunction. No regional wall motion abnormalities noted. Right Ventricle Normal RV size. Normal systolic function. Atria The left atrium is mildly enlarged. Normal right atrium. Mitral Valve Normal mitral valve. Tricuspid Valve Normal tricuspid valve. Aortic Valve Trisinus/trileaflet aortic valve. Pulmonic Valve The pulmonic valve is not well visualized. Great Vessels Normal aortic root. The pulmonary artery is normal size. Inferior vena cava collapse with respiration. Pericardium/Pleural No pericardial effusion. Medication Diluted definity 1.0ml given slow IV push to enhance endocardial definition. MMode/2D Measurements Calculations LVIDd: 4.4 cm IVSd: 1.4 cm Ao root diam: 2.9 cm LVIDs: 2.5 cm LVPWd: 1.5 cm FS: 43.3 % LAV(MOD-bp): 47.5 ml LA A4 area: 22.5 cm2 LA dimension(2D): 5.0 cm LAV(MOD-bp) Indexed: 20.6 ml/m2 LAV(MOD-sp2): 30.4 ml LAV(MOD-sp4): 62.7 ml RA A4 area: 8.6 cm2 Time Measurements MV dec time: 0.15 sec Doppler Measurements Calculations MV E max zita: 115.9 cm/sec Lat Peak E' Zita: 9.0 cm/sec Med Peak E' Zita: 7.9 cm/sec MV A max zita: 48.0 cm/sec E/E' lat: 12.9 E/E' med: 14.6 MV E/A: 2.4 MV dec slope: 766.9 cm/sec2 Ao V2 max: 123.9 cm/sec LV V1 max: 109.0 cm/sec Ao max P.1 mmHg LV V1 max P.8 mmHg PA V2 max: 104.6 cm/sec ECHO/Echo Complete W/ Contrast Interpretation Summary Normal LV size. Left ventricular systolic function is normal. The left ventricular ejection fraction is 65 %. Stage 3 diastolic dysfunction. Moderate concentric left ventricular hypertrophy. Contrast injection was performed. Ordering Physician: Katie Rosenbaum Referring Physician: Eddi Lynn Performed By: Christie Meier RDCS 01/09/251717 Date Sawyer Buck MD CC: Dr. Eddi Lynn MD; Dr. Corey Pelaez DO; Dr. Katie Rosenbaum MD Date Dictated: 01/09/251013 Date Transcribed: 01/09/251717 Electric Spot Welder: Signed Normal [facility] Echocardiogram study reportO rdered By: Sawyer Buck on 01-09-2025 Study report [facility] Work Phone: [phone] Study report [facility] Work Phone: [phone] Electrocardiogram reportOrde red By: Sawyer Buck on 01-09-2025 EKG study [facility] Work Phone: [phone] EKG study [facility] Work Phone: [phone] Eosinophil percentageOrdered By: Katie Rosenbaum on 01-09-2025 Eosinophils/100 WBC (Bld) 0.3 % 0-5 [facility] Erythrocyte distribution wid th ratioOrdered By: Katie Rosenbaum on 01-09-2025 Erythrocyte distribution width (RBC) [Ratio] 12.4 % 11.6-14.6 [facility] Erythrocyte distribution wid th standard deviationOrdered By: Katie Rosenbaum on 01-09-2025 Erythrocyte distribution width (RBC) [Ratio] 39.8 fl 35.1-43.9 [facility] Glomerular filtration rate ( GFR) estimation/1.73 sq m using serum, plasma, or whole bOrdered By: Katie Rosenbaum on 01-09-2025 GFR/1.73 sq M.predicted among non-blacks MDRD (S/P/Bld) [Vol rate/Area] 90 mL/min/{1.73_m2} >60 [facility] Hematocrit Auto (Bld) [Volum e fraction]Ordered By: Katie Rosenbaum on 01-09-2025 Hematocrit (Bld) [Volume fraction] 28.9 % Low 40-54 [facility] Hemoglobin measurementOrdere d By: Katie Rosenbaum on 01-09-2025 Hemoglobin (Bld) [Mass/Vol] 10.2 g/dL Low 13.0-16.5 [facility] Immature granulocytes/100 WB C Auto (Bld)Ordered By: Katie Rosenbaum 01-09-2025 Immature granulocytes/100 WBC (Bld) 0.400 % 0.0-0.9 [facility] MCV (mean corpuscular volume ) determinationOrdered By: Katie Rosenbaum 01-09-2025 MCV (RBC) [Entitic vol] 87.3 fL 80-94 [facility] Mean corpuscular hemoglobin (MCH) determinationOrdered By: Katie Rosenbaum 01-09-2025 MCH (RBC) [Entitic mass] 30.8 pg 27.0-32.0 [facility] Monocyte percentageOrdered B y: Katie Rosenbaum on 01-09-2025 Monocytes/100 WBC (Bld) 13.7 % High 0-10 [facility] Neutrophil percentageOrdered By: Katie Rosenbaum 01-09-2025 Neutrophils/100 WBC (Bld) 68.2 % 47-70 [facility] Platelet countOrdered By: Linda Rosenbaum on 01-09-2025 Platelets (Bld) [#/Vol] 296 10*3/uL 150-450 [facility] Potassium measurement (mass/ volume)Ordered By: Katie Rosenbaum 01-09-2025 Potassium (Unsp spec) [Mass/Vol] 3.9 mmol/L 3.3-5.1 [facility] RBC Auto (Bld) [#/Vol]Ordere d By: Katie Rosenbaum on 01-09-2025 RBC (Bld) [#/Vol] 3.31 10*6/uL Low 4.6-6.2 [facility] Serum creatinine measurement (mass/volume)Ordered By: Katie Rosenbaum on 01-09-2025 Creatinine [Mass/Vol] 0.92 mg/dL 0.70-1.20 [facility] Serum glucose measurement (m ass/volume)Ordered By: Katie Rosenbaum on 01-09-2025 Glucose [Mass/Vol] 127 mg/dL High 70-99 [facility] Serum or plasma calcium jung urement (mass/volume)Ordered By: Katie Rosenbaum on 01-09-2025 Calcium [Mass/Vol] 8.6 mg/dL 7.6-11.0 [facility] Serum or plasma urea nitroge n measurement (mass/volume)Ordered By: Katie Rosenbaum on 01-09-2025 Urea nitrogen [Mass/Vol] 14 mg/dL 4-19 [facility] Sodium levelOrdered By: Katie Rosenbaum on 01-09-2025 Sodium [Moles/Vol] 129 mmol/L Low 133-145 [facility] Troponin T HS 4 HRon 025 Trop T High Sen 37 ng/L High <=22 [facility] Comment on above: Performed By: #### L 501.2300, L500.4100, L100.0100 #### [facility] [address] [place], [place] [address] [place], [place], [id number] Troponin T.cardiac [Mass/vol ume] in Serum or Plasma by High sensitivity methodOrdered By: Aguilar Matthews on 01-09-2025 Troponin T.cardiac High sensitivity method [Mass/Vol] 37 ng/L High <22 [facility] White blood cell (WBC) count Ordered By: Katie Rosenbaum on 01-09-2025 WBC (Bld) [#/Vol] 12.2 10*3/uL High 4.4-11.0 [facility] 12 Lead EKGon 01-08-2025 12 Lead EKG [facility] Cardiovascular Services [address] [place] [address] 12 Lead EKG 01/08/251956 MR#: [id number] Acct: [id number] Name: NAYLA BENNETT Rep #: [id number] : 1955 69 From: Sawyer Buck MD Attending Dr: Dr. Corey Pelaez DO Status: A DM IN Ordering Dr: Aguilar Matthews MD Date: 01/08/25 Location: [facility] Sex: M C Admitted: 01/09/25 Test Reason : DYSRHYTHMIA Blood Pressure : */* mmHG Vent. Rate : 79 BPM Atrial Rate : 79 BPM P-R Int : 200 ms QRS Dur : 74 ms QT Int : 350 ms P-R-T Axes : 7 51 87 degrees QTcB Int : 401 ms Normal sinus rhythm Normal ECG Confirmed by CIELO ROMO, SAWYER ([id number]), editor producer URMILA CHINO ([id number]) on 01/09/2025 8:33:55 AM Referred By: Confirmed By: SAWYER BUCK MD 01/09/25 0834 Date Sawyer Buck MD CC: Dr. Eddi Lynn MD; Dr. Aguilar Matthews MD; Dr. Corey Pelaez DO Signed Normal [facility] Abdomen/Pelvis W IV Cont ONL Yon 01-08-2025 Abdomen/Pelvis W IV Cont ONLY [facility] Imaging Services [address] [place] [address] Abdomen/Pelvis W IV Cont ONLY MR#: [id number] Acct: [id number] Name: NAYLA BENNETT Rep #: [id number] : 1955 M 69 From: Dimitri mccarthy MD PCP: Dr. Eddi Lynn MD Status: REG ER Study: Abdomen/Pelvis W IV Cont ONLY Date of Exam: Exam# [id number] Ordering Dr: Aguilar Matthews MD PROCEDURE: ABDOMEN/PELVIS W IV CONT ONLY 01/08/2025 REASON FOR EXAM: ABD DISTENTION TECHNIQUE: Procedure Code: CTABDPELIV Modality: CT Procedure: ABDOMEN/PELVIS W IV CONT ONLY Coronal and Sagittal reconstruction series were provided. CONTRAST: Isovue 370 VOLUME: 100 mL One or more dose reduction techniques were used (e.g., Automated exposure control, adjustment of the mA and/or kV according to patient size, use of iterative reconstruction technique. RADIATION DOSE SUMMARY: CTDlvol: 23.07 mGy DLP: 1416.44 mGycm COMPARISON: 12/30/2024 FINDINGS: Lung bases: Small bilateral pleural effusions. Liver: Normal size. No mass. Gallbladder: Normal Spleen: Normal Pancreas: Diffuse fatty atrophy Adrenals: No adrenal mass Kidneys: No hydronephrosis. Left extrarenal pelvis. Bladder: Distended Reproductive Organs: No significant prostatomegaly. Bowel: No bowel mass or bowel obstruction. Appendix: Not confidently visualized. Lymph nodes: No suspicious lymph node enlargement. Vasculature: Normal Peritoneum / Retroperitoneum: There is no ascites Bones: Degenerative changes of the spine. CT/Abdomen/Pelvis W IV Cont ONLY IMPRESSION: 1. There is no acute process in the abdomen or pelvis Reading Location: [facility] CC: Dr. Eddi Lynn MD; Dr. Aguilar Matthews MD Electric Spot Welder: Signed Normal [facility] Bilirubin Test strip Ql (U)O rdered By: Aguilar Matthews on 01-08-2025 Bilirubin Ql (U) Negative Negative [facility] Bilirubin, totalOrdered By: Aguilar Matthews on 01-08-2025 Bilirubin [Mass/Vol] 0.22 mg/dL 0.00-1.30 [facility] CBC W/Diff, Automatedon 12-24 Absolute Lymph 1.38 X10 3/uL Normal 0.83-4.51 [facility] Comment on above: Performed By: #### L 501.080 #### [facility] [address] [place], [address] Absolute Neut 10.2 X10 3/uL High 2.0-7.7 [facility] Comment on above: Performed By: #### L 501.080 #### [facility] [address] [place], [address] Basophils/100 WBC (Bld) 0.3 % Normal 0-1 [facility] Comment on above: Performed By: #### L 501.080 #### [facility] [address] [place], [address] Eosinophils/100 WBC (Bld) 0.5 % Normal 0-5 [facility] Comment on above: Performed By: #### L 501.080 #### [facility] [address] [place], [address] Erythrocyte distribution width (RBC) [Ratio] 12.3 % Normal 11.6-14.6 [facility] Comment on above: Performed By: #### L 501.080 #### [facility] [address] [place], [address] Hematocrit (Bld) [Volume fraction] 32.4 % Low 40-54 [facility] Comment on above: Performed By: #### L 501.080 #### [facility] [address] [place], [address] Hemoglobin (Bld) [Mass/Vol] 10.9 g/dL Low 13.0-16.5 [facility] Comment on above: Performed By: #### L 501.080 #### [facility] [address] [place], [address] IG% 0.500 Normal 0.0-0.9 [facility] Comment on above: Result Comment: IG% - Immature Granulocytes (promyelocytes, myelocytes and metamyelocytes) > 1% indicates that a LEFT SHIFT is Present. Performed By: #### L 501.080 #### [facility] [address] [place], [address] Lymphocytes/100 WBC (Bld) 10.5 % Low 19-41 [facility] Comment on above: Performed By: #### L 501.080 #### [facility] [address] [place], [address] MCH (RBC) [Entitic mass] 30.1 pg Normal 27.0-32.0 [facility] Comment on above: Performed By: #### L 501.080 #### [facility] [address] [place], [address] MCHC (RBC) [Mass/Vol] 33.6 g/dL Normal 32-36 [facility] Comment on above: Performed By: #### L 501.080 #### [facility] [address] [place], [address] MCV (RBC) [Entitic vol] 89.5 fL Normal 80-94 [facility] Comment on above: Performed By: #### L 501.080 #### [facility] [address] [place], [address] Monocytes/100 WBC (Bld) 10.1 % High 0-10 [facility] Comment on above: Performed By: #### L 501.080 #### [facility] [address] [place], [address] Neutrophils/100 WBC (Bld) 78.1 % High 47-70 [facility] Comment on above: Performed By: #### L 501.080 #### [facility] [address] [place], [address] Nucleated RBC (Bld) [#/Vol] 0 10*3/uL Normal 0-5 [facility] Comment on above: Performed By: #### L 501.080 #### [facility] [address] [place], [address] Platelet mean volume (Bld) [Entitic vol] 9.1 fL Normal 6.2-12.0 [facility] Comment on above: Performed By: #### L 501.080 #### [facility] [address] [place], [address] Platelets (Bld) [#/Vol] 321 10*3/uL Normal 150-450 [facility] Comment on above: Performed By: #### L 501.080 #### [facility] [address] [place], [address] RBC (Bld) [#/Vol] 3.62 10*6/uL Low 4.6-6.2 [facility] Comment on above: Performed By: #### L 501.080 #### [facility] [address] [place], [address] RDW SD 40.0 fl Normal 35.1-43.9 [facility] Comment on above: Performed By: #### L 501.080 #### [facility] [address] [place], [address] WBC (Bld) [#/Vol] 13.1 10*3/uL High 4.4-11.0 [facility] Comment on above: Performed By: #### L 501.080 #### [facility] [address] [place], [address] CTA Chest W/WO Contraston CTA Chest W/WO Contrast [facility] Imaging Services [address] [place] [address] CTA Chest W/WO Contrast MR#: [id number] Acct: [id number] Name: NAYLA BENNETT Rep #: [id number] : 1955 M 69 From: Robe ceja MD PCP: Dr. Eddi Lynn MD Status: ADM IN Study: CTA Chest W/WO Contrast Date of Exam: 01/08/25 Exam# [id number] Ordering Dr: Aguilar Matthews MD PROCEDURE: CTA CHEST W/WO CONTRAST 01/08/2025 REASON FOR EXAM: HYPOXIA AND DYSPNEA TECHNIQUE: Procedure Code: CTCTACHWW Modality: CT Procedure: CTA CHEST W/WO CONTRAST Multiplanar Sagittal and Coronal images were obtained. CONTRAST: Isovue 370 VOLUME: 100 mL One or more dose reduction techniques were used (e.g., Automated exposure control, adjustment of the mA and/or kV according to patient size, use of iterative reconstruction technique). RADIATION DOSE SUMMARY: CTDlvol: 15.8 mGy DLP: 550 mGycm COMPARISON: Chest radiograph on 01/08/2025. FINDINGS: Moderate cardiomegaly. Mild bilateral pleural effusions. Passive atelectatic airspace disease of the lower lobes. Moderate interstitial pulmonary congestion. Mild alveolar pulmonary congestion. Mildly enlarged mediastinal lymph nodes with the largest measuring 1.3 cm, probably reactive. Normal enhancement of the main pulmonary artery and right and left pulmonary arteries. Normal enhancement of the bilateral peripheral pulmonary arteries. There is no demonstrated pulmonary embolism. Normal thoracic aorta and visualized great vessels. There is no demonstrated aortic dissection. Normal pericardium. Normal visualized trachea and bronchi. Normal chest wall structures. Normal osseous structures. Normal visualized upper abdomen. CT/CTA Chest W/WO Contrast IMPRESSION: No demonstrated pulmonary embolism or arterial dissection. Moderate cardiomegaly. Mild bilateral pleural effusions. Passive atelectatic airspace disease of the lower lobes. Moderate interstitial pulmonary congestion. Mild alveolar pulmonary congestion. Mildly enlarged mediastinal lymph nodes with the largest measuring 1.3 cm, probably reactive. Reading Location: [place] [address] CC: Dr. Eddi Lynn MD; Dr. Aguilar Matthews MD Electric Spot Welder: Signed Normal [facility] Chest PA and Lateralon 01-08 Chest PA and Lateral [facility] Imaging Services [address] [place] [address] Chest PA and Lateral MR#: [id number] Acct: [id number] Name: NAYLA BENNETT Rep #: [id number] : 1955 M 69 From: Dimitri mccarthy MD PCP: Dr. Eddi Lynn MD Status: REG ER Study: Chest PA and Lateral Date of Exam: 01/08/25 Exam# [id number] Ordering Dr: Aguilar Matthews MD PROCEDURE: CHEST PA AND LATERAL 01/08/2025 REASON FOR EXAM: DYSPNEA TECHNIQUE: Procedure Code: RADCXR Modality: DX Procedure: CHEST PA AND LATERAL COMPARISON: None FINDINGS: Suboptimal inspiratory effort accentuates the cardiomediastinal silhouette, hilar structures, left lower lung. No large consolidation in the upper lungs. RAD/Chest PA and Lateral IMPRESSION: 1. Suboptimal exam. Possible mild CHF and possible left lung base airspace disease. Reading Location: [facility] CC: Dr. Eddi Lynn MD; Dr. Aguilar Matthews MD Electric Spot Welder: Signed Normal [facility] Comprehensive Metabolic Prof ilon 01-08-2025 Albumin [Mass/Vol] 3.9 g/dL Normal 3.4-4.8 [facility] Comment on above: Performed By: #### L 501.080 #### [facility] [address] [place], [address] Albumin/Globulin [Mass ratio] 1.5 {ratio} Normal 0.9-2.4 [facility] Comment on above: Performed By: #### L 501.080 #### [facility] [address] [place], [address] ALK PHOS 82 U/L Normal 40-129 [facility] Comment on above: Performed By: #### L 501.080 #### [facility] [address] [place], [address] ALT [Catalytic activity/Vol] 24 U/L Normal <=46 [facility] Comment on above: Performed By: #### L 501.080 #### [facility] [address] [place], [address] AST [Catalytic activity/Vol] 23 U/L Normal <=37 [facility] Comment on above: Result Comment: Hemo lysis present, Results??could be affected. ?? Performed By: #### L 501.080 #### [facility] [address] [place], [address] Bilirubin [Mass/Vol] 0.22 mg/dL Normal 0.00-1.30 [facility] Comment on above: Performed By: #### L 501.080 #### [facility] [address] [place], [address] BUN/CRE 19.4 RATIO Normal 10-20 [facility] Comment on above: Performed By: #### L 501.080 #### [facility] [address] [place], [address] Calcium [Mass/Vol] 8.8 mg/dL Normal 7.6-11.0 [facility] Comment on above: Performed By: #### L 501.080 #### [facility] [address] [place], [address] Chloride [Moles/Vol] 94 mmol/L Low 98-108 [facility] Comment on above: Performed By: #### L 501.080 #### [facility] [address] [place], [address] CO2 [Moles/Vol] 22.2 mmol/L Normal 21.0-32.0 [facility] Comment on above: Performed By: #### L 501.080 #### [facility] [address] [place], [address] Creatinine [Mass/Vol] 0.85 mg/dL Normal 0.70-1.20 [facility] Comment on above: Performed By: #### L 501.080 #### [facility] [address] [place], [address] ECRCL 103.03 ml/min Normal 50-250 [facility] Comment on above: Performed By: #### L 501.080 #### [facility] [address] [place], [address] GAP 13 Normal 5-15 [facility] Comment on above: Performed By: #### L 501.080 #### [facility] [address] [place], [address] GFR/1.73 sq M.predicted among non-blacks MDRD (S/P/Bld) [Vol rate/Area] 93 mL/min/{1.73_m2} Normal >60 [facility] Comment on above: Result Comment: mL/m in/1.73m2 CKD-EPI Creatinine Equation (2020) Performed By: #### L 501.080 #### [facility] [address] [place], [address] Globulin (S) [Mass/Vol] 2.6 g/dL Normal 2.2-4.2 [facility] Comment on above: Performed By: #### L 501.080 #### [facility] [address] [place], [address] Glucose [Mass/Vol] 193 mg/dL High 70-99 [facility] Comment on above: Performed By: #### L 501.080 #### [facility] [address] [place], [address] Potassium [Moles/Vol] 4.4 mmol/L Normal 3.3-5.1 [facility] Comment on above: Result Comment: Hemo lysis present, Results??could be affected. ?? Performed By: #### L 501.080 #### [facility] [address] [place], [address] Sodium [Moles/Vol] 129 mmol/L Low 133-145 [facility] Comment on above: Performed By: #### L 501.080 #### [facility] [address] [place], [address] T PROT 6.5 g/dL Normal 5.9-8.4 [facility] Comment on above: Performed By: #### L 501.080 #### [facility] [address] [place], [address] Urea nitrogen [Mass/Vol] 17 mg/dL Normal 4-19 [facility] Comment on above: Performed By: #### L 501.080 #### [facility] [address] [place], [address] D-Dimer Quantitative (DVT/PE )on 01-08-2025 D-DIMER QUANT < 0.27 Low 0.27-0.49 [facility] Comment on above: Result Comment: NORM AL D-Dimer level (<0.50) indicates no DVT or PE. Performed By: #### L 501.2300, L500.4100, L100.0100 #### [facility] [address] [place], [address] Emergency Department Summary on 01-08-2025 Emergency Department Summary [facility] Medical Records Department [address] [place] [address] Emergency Department Summary 01/08/25 MR#: [id number] Acct: [id number] Name: NAYLA BENNETT Rep #: [id number] : 1955 69 From: Aguilar Matthews MD PCP: Dr. Eddi Lynn MD Status:REG ER Location: ED HPI History of Present Illness Chief Complaint: Hypertension Informant: patient and other (Staff from the patient's resident facility) Onset/Context/Timing Onset: Today Timing: Intermittent Current Severity: Mild Maximum Severity: Mild Narrative Narrative: 69-year-old male history of autism he is not verbal. History UTIs, diabetes, seizures and schizophrenia. He is currently being treated for hypertension with carvedilol and hydralazine. He is unable to give any history. Per the staff from his residence he has been having shortness of breath. They question if he may or may not be having abdominal pain. He is having bowel movements and urinating. They deny any vomiting or diarrhea. They deny any fever. Prior similar symptoms: Yes Recent Illness/Hospitalizat ion: Yes [facility] Medical History Developmental non-verbal disorder Vitamin B12 deficiency Epilepsy, unspecified, not intractable, without status epilepticus Schizophrenia Seizure disorder Hyperlipidemia HTN (hypertension) Diabetes mellitus, type II Home Medications ???Medication ???Instructions ???Recorded ???Last Taken ???Type loratadine 10 mg tablet 10 mg PO DAILY allergies 07/16/16 Unknown History atorvastatin 40 mg tablet 40 mg PO QHS cholesterol 11/27/19 Unknown History metformin 1,000 mg tablet 1,000 mg PO BID diabetes 11/27/19 Unknown History fluticasone propionate 50 1 spray intranasal QHS 12/02/19 Un known History mcg/actuation nasal spray,suspension tamsulosin 0.4 mg capsule 0.4 mg PO DAILY prostate 12/02/19 Unknown History levothyroxine 50 mcg tablet 50 mcg PO QDAY thyroid 11/28/23 Un known History cholecalciferol (vitamin D3) 1,250 1,250 mcg PO QMONTH vitamin #1 c ap 05/28/24 Unknown Rx mcg (50,000 unit) capsule chlorhexidine gluconate 0.12 % 15 ml buccal BID mouth sores 11/26 Unknown History mouthwash olmesartan 40 mg tablet 40 mg PO QAM blood pressure #30 Unknown Rx tabs phenobarbital 60 mg tablet 120 mg (2 x 60 mg) PO QHS seizures 11/26/24 Unknown Rx #56 tabs amlodipine 10 mg tablet (Norvasc) 10 mg PO DAILY blood pressure #30 12/19/24 Unknown Rx tabs beta carotene 30 mg capsule 30 mg PO DAILY supplement 12/22/24 Unknown History carvedilol 25 mg tablet 25 mg PO BIDCM #60 tabs 01/02/25 U nknown Rx hydralazine 50 mg tablet 50 mg PO TID #90 tabs 01/02/25 Unk nown Rx sodium chloride 1,000 mg soluble 1,000 mg PO TID #90 tabs 01/02/25 Unknown Rx tablet cyanocobalamin (vitamin B-12) 1,000 mcg sublingual DAILY 5 Unknown History 1,000 mcg sublingual tablet levetiracetam 750 mg tablet 1,500 mg PO BID 01/08/25 Unknown H istory omega-3 fatty acids-fish oil 300 1 cap PO BID 01/08/25 Unknown Hist ory mg-1,000 mg capsule polyethylene glycol 3350 17 17 g PO BID 01/08/25 Unknown Histo ry gram/dose oral powder risperidone 3 mg tablet (Risperdal) 3 mg PO QHS 01/08/25 Unknown Hi story Allergy/AdvReac Type Severity Reaction Status Date / Time hydrochlorothiazide AdvReac Severe Hyponatremi Verified 12/30/24 21:31 a metformin AdvReac Severe Lactic Verified 12/30/24 21:31 Acidosis Surgical History No history of previous surgery Social History housing: other details: senior care Smoking Status: Never smoker Electronic Cigarette Use: not used second hand exposure: No alcohol intake: never substance use type: does not use seatbelt use: always ROS ROS ED ROS Narrative Possible shortness of breath. Acute on chronic hypertension. Possible abdominal pain. Constitutional Constitutional ED: Denies chills or fever(s) Eyes Eyes: Denies blurry vision ENT ENT ED: Denies ear pain Cardiovascular Cardiovascular: Denies chest pain Respiratory/Chest Respiratory/Chest: Reports dyspnea; Denies cough Gastrointestinal Gastrointestinal: Denies constipation, nausea or vomiting Genitourinary Genitourinary ED: Denies dysuria or hematuria Musculoskeletal Musculoskeletal: Denies arthralgias Integumentary Denies abscess Neurologic Neurologic: Denies headache(s) Psychiatric Psychiatric: Denies anxiety Endocrine Endocrinology: Denies cold intolerance Hematologic/Lymphati c Hematologic/Lymphati c: Reports none Allergic/Immunologic Allergic/Immunologic ED: Denies mouth swelling, tongue swelling or urticaria EXAM Physical Exa (more content not included)... Normal [facility] Exam - Hospitalist [facility] Medical Records Department [address] [place] [address] H P Exam - Hospitalist 01/08/25 1436 MR#: [id number] Acct: [id number] Name: NAYLA BENNETT Rep #: [id number] : 1955 69 From: Katie Rosenbaum MD PCP: Dr. Eddi Lynn MD Status:ADM IN Location: [facility] [id number] HPI - General General Date of Admission: 01/09/25 Date of Service: 01/08/25 Chief Complaint: hypertension HPI Narrative NAYLA BENNETT, is a 69 M who with a PMH as outlined including autism (nonverbal at baseline), diabetes mellitus, seizures and schizophrenia as well as recurrent UTIs. He was noted to be short of breath by the staff in his facility. They also questioned whether he was having some abdominal pain. He had not noted him having any fever or any elevated heart rate and no vomiting, diarrhea or any other symptoms. Unable to do review of systems with patient as he is nonverbal. History was obtained from a staff of his facility who was present at time of review. Vitals at time of review were blood pressure of 169/77, pulse rate of 79 respiratory rate of 18. Temperature was 98 Fahrenheit and he was saturating at 97% on room air. CBC showed hemoglobin of 10.9 with WBC of 13.1 and platelets of 321. D-dimer was less than 0.27. Chemistry showed sodium of 129 potassium of 4.4 and bicarb of 22.2. Creatinine was 0.85. Initial troponin was 30 with delta troponin of 31. proBNP was elevated at 1535. Urinalysis showed No evidence of UTI. Chest x-ray showed possible mild CHF and possible left lung base airspace disease. CT of the chest was done and read was still pending at time of my review. Of note patient was recently discharged only on 01/02/2025 after being admitted to be managed for hyponatremia [facility] Medical History Developmental non-verbal disorder Vitamin B12 deficiency Epilepsy, unspecified, not intractable, without status epilepticus Schizophrenia Seizure disorder Hyperlipidemia HTN (hypertension) Diabetes mellitus, type II Home Medications ???Medication ???Instructions ???Recorded ???Last Taken ???Type loratadine 10 mg tablet 10 mg PO DAILY allergies 07/16/16 Unknown History atorvastatin 40 mg tablet 40 mg PO QHS cholesterol 11/27/19 Unknown History metformin 1,000 mg tablet 1,000 mg PO BID diabetes 11/27/19 Unknown History fluticasone propionate 50 1 spray intranasal QHS 12/02/19 Un known History mcg/actuation nasal spray,suspension tamsulosin 0.4 mg capsule 0.4 mg PO DAILY prostate 12/02/19 Unknown History levothyroxine 50 mcg tablet 50 mcg PO QDAY thyroid 11/28/23 Un known History cholecalciferol (vitamin D3) 1,250 1,250 mcg PO QMONTH vitamin #1 c ap 05/28/24 Unknown Rx mcg (50,000 unit) capsule chlorhexidine gluconate 0.12 % 15 ml buccal BID mouth sores 11/26 Unknown History mouthwash olmesartan 40 mg tablet 40 mg PO QAM blood pressure #30 Unknown Rx tabs phenobarbital 60 mg tablet 120 mg (2 x 60 mg) PO QHS seizures 11/26/24 Unknown Rx #56 tabs amlodipine 10 mg tablet (Norvasc) 10 mg PO DAILY blood pressure #30 12/19/24 Unknown Rx tabs beta carotene 30 mg capsule 30 mg PO DAILY supplement 12/22/24 Unknown History carvedilol 25 mg tablet 25 mg PO BIDCM #60 tabs 01/02/25 U nknown Rx hydralazine 50 mg tablet 50 mg PO TID #90 tabs 01/02/25 Unk nown Rx sodium chloride 1,000 mg soluble 1,000 mg PO TID #90 tabs 01/02/25 Unknown Rx tablet cyanocobalamin (vitamin B-12) 1,000 mcg sublingual DAILY 5 Unknown History 1,000 mcg sublingual tablet levetiracetam 750 mg tablet 1,500 mg PO BID 01/08/25 Unknown H istory omega-3 fatty acids-fish oil 300 1 cap PO BID 01/08/25 Unknown Hist ory mg-1,000 mg capsule polyethylene glycol 3350 17 17 g PO BID 01/08/25 Unknown Histo ry gram/dose oral powder risperidone 3 mg tablet (Risperdal) 3 mg PO QHS 01/08/25 Unknown Hi story Allergy/AdvReac Type Severity Reaction Status Date / Time hydrochlorothiazide AdvReac Severe Hyponatremi Verified 12/30/24 21:31 a metformin AdvReac Severe Lactic Verified 12/30/24 21:31 Acidosis Surgical History No history of previous surgery Social History housing: other details: senior care Smoking Status: Never smoker Electronic Cigarette Use: not used second hand exposure: No alcohol intake: never substance use type: does not use seatbelt use: always ROS Review of Systems ROS Unobtainable: due to mental status and other Details: nonverbal due to autism. Vital Signs Vital Signs Vital Signs: 01/08/25 18:37 01/08/25 18:43 01/08/25 20:36 Temperature 98 F Temperature Source Axillary Pulse Rat (more content not included)... Normal [facility] Ketones Test strip Ql (U)Ord ered By: Aguilar Matthews on 01-08-2025 Ketones Ql (U) Negative Negative [facility] L501.4021on 01-08-2025 Trop T High Sen 30 ng/L High <=22 [facility] Comment on above: Performed By: #### L 501.080 #### [facility] [address] [facility]. [place], [place], [address] Lipaseon 01-08-2025 Lipase [Catalytic activity/Vol] 22 U/L Normal 13-75 [facility] Comment on above: Result Comment: Harini crandall note: LIPASE revised reference range effective 22. New Lipase methodology. Expected to produce lower values than the previous assay method. NEW Reference Range: 13 - 75 U/L Performed By: #### L 501.080 #### [facility] [address] [place], [address] Mucus LM Ql (Urine sed)Order ed By: Aguilar Matthews on 01-08-2025 Mucus Ql (Urine sed) 1+ /hpf [facility] Natriuretic peptide.B prohor adriana N-Terminal [Mass/volume] in Serum or PlasmaOrdered By: Aguilar Matthews on 01-08-2025 Natriuretic peptide.B prohormone N-Terminal [Mass/Vol] 1535 pg/mL High <900 [facility] Nitrite Test strip Ql (U)Ord ered By: Aguilar Matthews on 01-08-2025 Nitrite Ql (U) Negative Negative [facility] No Panel InformationOrdered By: Aguilar Matthews on 01-08-2025 23 U/L <38 [facility] Pro- Brain NATRIURETIC PEPTI 01-08-2025 Natriuretic peptide B (Bld) [Mass/Vol] 1535 pg/mL High <=900 [facility] Comment on above: Result Comment: Hear t Failure Unlikely: < 300 pg/mL Heart Failure Likely < 50 Years: > 450 pg/mL 50-75 Years: > 900 pg/mL >75 Years: > 1800 pg/mL Performed By: #### L 501.2300, L500.4100, L100.0100 #### [facility] [address] [place], [address] Protein Test strip Ql (U)Ord ered By: Aguilar Matthews on 01-08-2025 Protein Ql (U) 30 mg/dl High Negative [facility] Serum globulin measurementOr dered By: Aguilar Matthews on 01-08-2025 Globulin (S) [Mass/Vol] 2.6 g/dL 2.2-4.2 [facility] Serum or plasma alanine medrano otransferase (ALT) measurementOrdered By: Aguilar Matthews on 01-08-2025 ALT [Catalytic activity/Vol] 24 U/L <47 [facility] Serum or plasma albumin jung urement (mass/volume)Ordered By: Aguilar Matthews on 01-08-2025 Albumin [Mass/Vol] 3.9 g/dL 3.4-4.8 [facility] Serum or plasma albumin/glob ulin mass ratioOrdered By: Aguilar Matthews on 01-08-2025 Albumin/Globulin [Mass ratio] 1.5 {ratio} 0.9-2.4 [facility] Serum or plasma alkaline ally sphatase measurementOrdered By: Aguilar Matthews on 01-08-2025 ALP [Catalytic activity/Vol] 82 U/L 40-129 [facility] Squamous epithelial cells de tection in urine sediment by light microscopyOrdered By: Aguilar Matthews on 01-08-2025 Epithelial cells.squamous LM Ql (Urine sed) 0-5 SEEN /hpf 0-5 [facility] Total proteinOrdered By: Raheem Matthews on 01-08-2025 Protein [Mass/Vol] 6.5 g/dL 5.9-8.4 [facility] Troponin T HS 2 HRon 025 Trop T High Sen 31 ng/L High <=22 [facility] Comment on above: Performed By: #### L 501.2300, L500.4100, L100.0100 #### [facility] [address] [place], [address] Troponin T.cardiac [Mass/vol ume] in Serum or Plasma by High sensitivity methodOrdered By: Aguilar Matthews on 01-08-2025 Troponin T.cardiac High sensitivity method [Mass/Vol] 31 ng/L High <22 [facility] Troponin T.cardiac High sensitivity method [Mass/Vol] 30 ng/L High <22 [facility] Urinalysis, Completeon 01-08 EPI,SQUAMOUS 0-5 SEEN Normal 0-5 [facility] Comment on above: Order Comment: AUDIE TER SPECIMEN Performed By: #### L 501.2300, L500.4100, L100.0100 #### [facility] [address] [place], [address] Mucus Ql (Urine sed) 1+ /hpf Normal [facility] Comment on above: Order Comment: AUDIE TER SPECIMEN Performed By: #### L 501.2300, L500.4100, L100.0100 #### [facility] [address] [place], [address] RBC 0-5 SEEN Normal 0-5 [facility] Comment on above: Order Comment: AUDIE TER SPECIMEN Performed By: #### L 501.2300, L500.4100, L100.0100 #### [facility] [address] [place], [address] WBC 0-5 SEEN Normal 0-5 [facility] Comment on above: Order Comment: AUDIE TER SPECIMEN Performed By: #### L 501.2300, L500.4100, L100.0100 #### [facility] [address] [place], [address] BACTERIA 0 SEEN Normal None Seen [facility] Comment on above: Order Comment: AUDIE TER SPECIMEN Performed By: #### L 501.2300, L500.4100, L100.0100 #### [facility] [address] [place], [address] Urine clarityOrdered By: Raheem Matthews on 01-08-2025 Clarity (U) Clear Clear [facility] Urine color determinationOrd ered By: Aguilar Matthews on 01-08-2025 Color (U) Yellow Yellow [facility] Urine glucose detectionOrder ed By: Aguilar Matthews on 01-08-2025 Glucose Ql (U) 1000 mg/dl High Normal [facility] Urine leukocyte esterase det ection by dipstickOrdered By: Aguilar Matthews on 01-08-2025 Leukocyte esterase Test strip Ql (U) Negative Negative [facility] Urine pHOrdered By: Aguilar ellsworth on 01-08-2025 pH (U) 6.0 [pH] 5.0 - 8.0 [facility] Urine sediment bacteria coun t by microscopy (number/high power field)Ordered By: Aguilar Matthews on 01-08-2025 Bacteria LM.HPF (Urine sed) [#/Area] 0 /[HPF] None Seen [facility] Urine specific gravity measu rementOrdered By: Aguilar Matthews on 01-08-2025 Specific gravity (U) [Rel density] 1.015 1.002-1.030 [facility] Urine urobilinogen measureme ntOrdered By: Aguilar Matthews on 01-08-2025 Urobilinogen Ql (U) Normal mg/dl Normal [facility] White blood cell countOrdere d By: Aguilar Matthews on 01-08-2025 White blood cell count 0-5 SEEN /hpf 0-5 [facility] Culture, Blood (WB)on 2024 CUB Blood cultures x2, from two different sites No growth in 5 days. Normal [facility] Comment on above: Performed By: #### L 501.2300, L500.4100, L100.0100 #### [facility] [address] [place], [address] CUB Blood cultures x2, from two different sites No growth in 5 days. Normal [facility] Comment on above: Performed By: #### L 503.0106 #### [facility] [address] [place], [place], [address] KEPPRA (LEVETIRACETAM)on KEPPRA 18.4 ug/mL Normal 10.0-40.0 [facility] Comment on above: Result Comment: Perf ormed at: - [facility] [address] [id number] News Videographer: Pacheco Campos PhD, Phone: [phone] Performed at: - [facility] [address] [id number] News Videographer: Vickey Romeo MD, Phone: [phone] Performed By: #### L 501.080 #### [facility] [address] [place], [place], [address] L3700.3000on 01-03-2025 PHENobarbital [Mass/Vol] 19 ug/mL Normal 15-40 [facility] Comment on above: Result Comment: Dete ction Limit = 3 Performed By: #### L 501.080 #### [facility] [address] [place], [place], [address] Anion gap in Serum or Plasma Ordered By: Alice Mckeon on 01-02-2025 Anion gap [Moles/Vol] 10 mmol/L 08-07 [facility] BUN/creatinine ratioOrdered By: Alice Mckeon on 01-02-2025 Urea nitrogen/Creatinine [Mass ratio] 13.1 mg/mg 01-12 [facility] Basic Metabolic Profile (BMP )on 01-02-2025 BUN/CRE 13.1 RATIO Normal 01-12 [facility] Comment on above: Performed By: #### L 503.0106 #### [facility] [address] [place], [place], [id number] Calcium [Mass/Vol] 8.8 mg/dL Normal 7.6-11.0 [facility] Comment on above: Performed By: #### L 503.0106 #### [facility] [address] [place], [address] Chloride [Moles/Vol] 99 mmol/L Normal 98-108 [facility] Comment on above: Performed By: #### L 503.0106 #### [facility] [address] [place], [address] CO2 [Moles/Vol] 23.2 mmol/L Normal 21.0-32.0 [facility] Comment on above: Performed By: #### L 503.0106 #### [facility] [address] [place], [address] Creatinine [Mass/Vol] 0.99 mg/dL Normal 0.70-1.20 [facility] Comment on above: Performed By: #### L 503.0106 #### [facility] [address] [place], [address] ECRCL 86.77 ml/min Normal 50-250 [facility] Comment on above: Performed By: #### L 503.0106 #### [facility] [address] [place], [address] GAP 10 Normal 5-15 [facility] Comment on above: Performed By: #### L 503.0106 #### [facility] [address] [place], [address] GFR/1.73 sq M.predicted among non-blacks MDRD (S/P/Bld) [Vol rate/Area] 82 mL/min/{1.73_m2} Normal >60 [facility] Comment on above: Result Comment: mL/m in/1.73m2 CKD-EPI Creatinine Equation (2020) Performed By: #### L 503.0106 #### [facility] [address] [place], [address] Glucose [Mass/Vol] 122 mg/dL High 70-99 [facility] Comment on above: Performed By: #### L 503.0106 #### [facility] [address] [place], [address] Potassium [Moles/Vol] 3.9 mmol/L Normal 3.3-5.1 [facility] Comment on above: Performed By: #### L 503.0106 #### [facility] [address] [place], [address] Sodium [Moles/Vol] 132 mmol/L Low 133-145 [facility] Comment on above: Performed By: #### L 503.0106 #### [facility] [address] [place], [address] Urea nitrogen [Mass/Vol] 13 mg/dL Normal 4-19 [facility] Comment on above: Performed By: #### L 503.0106 #### [facility] [address] [place], [address] Bedside Glucoseon 01-02-2025 FINGERSTICK GLU 173 mg/dL High 74-106 [facility] Comment on above: Result Comment: KELBY GEMENT OF PATIENT CARE PER NURSING PROTOCOL Performed By: #### L 501.2300, L500.4100, L100.0100 #### [facility] [address] [place], [address] FINGERSTICK GLU 119 mg/dL High 74-106 [facility] Comment on above: Result Comment: KELBY GEMENT OF PATIENT CARE PER NURSING PROTOCOL Performed By: #### L 501.2300, L500.4100, L100.0100 #### [facility] [address] [place], [address] CBC-Complete Blood Cnt No Di ffon 01-02-2025 Erythrocyte distribution width (RBC) [Ratio] 12.3 % Normal 11.6-14.6 [facility] Comment on above: Performed By: #### L 503.0106 #### [facility] [address] [place], [address] Hematocrit (Bld) [Volume fraction] 35.2 % Low 40-54 [facility] Comment on above: Performed By: #### L 503.0106 #### [facility] [address] [place], [address] Hemoglobin (Bld) [Mass/Vol] 12.5 g/dL Low 13.0-16.5 [facility] Comment on above: Performed By: #### L 503.0106 #### [facility] [address] [place], [address] MCH (RBC) [Entitic mass] 30.3 pg Normal 27.0-32.0 [facility] Comment on above: Performed By: #### L 503.0106 #### [facility] [address] [place], [address] MCHC (RBC) [Mass/Vol] 35.5 g/dL Normal 32-36 [facility] Comment on above: Performed By: #### L 503.0106 #### [facility] [address] [place], [address] MCV (RBC) [Entitic vol] 85.4 fL Normal 80-94 [facility] Comment on above: Performed By: #### L 503.0106 #### [facility] [address] [place], [address] Platelet mean volume (Bld) [Entitic vol] 8.7 fL Normal 6.2-12.0 [facility] Comment on above: Performed By: #### L 503.0106 #### [facility] [address] [place], [address] Platelets (Bld) [#/Vol] 294 10*3/uL Normal 150-450 [facility] Comment on above: Performed By: #### L 503.0106 #### [facility] [address] [place], [address] RBC (Bld) [#/Vol] 4.12 10*6/uL Low 4.6-6.2 [facility] Comment on above: Performed By: #### L 503.0106 #### [facility] [address] [place], [address] RDW SD 38.5 fl Normal 35.1-43.9 [facility] Comment on above: Performed By: #### L 503.0106 #### [facility] [address] [place], [address] WBC (Bld) [#/Vol] 11.1 10*3/uL High 4.4-11.0 [facility] Comment on above: Performed By: #### L 503.0106 #### [facility] [address] [place], [address] Carbon dioxide, total [Moles /volume] in Central venous bloodOrdered By: Alice Mckeon on 01-02-2025 CO2 [Moles/Vol] 23.2 mmol/L 21.0-32.0 [facility] Chloride assayOrdered By: Rm Mckeon on 01-02-2025 Chloride [Moles/Vol] 99 mmol/L 98-108 [facility] Erythrocyte distribution wid th ratioOrdered By: Alice Mckeon on 01-02-2025 Erythrocyte distribution width (RBC) [Ratio] 12.3 % 11.6-14.6 [facility] Erythrocyte distribution wid th standard deviationOrdered By: Alice Mckeon on 01-02-2025 Erythrocyte distribution width (RBC) [Ratio] 38.5 fl 35.1-43.9 [facility] Glomerular filtration rate ( GFR) estimation/1.73 sq m using serum, plasma, or whole bOrdered By: Alice Mckeon on 01-02-2025 GFR/1.73 sq M.predicted among non-blacks MDRD (S/P/Bld) [Vol rate/Area] 82 mL/min/{1.73_m2} >60 [facility] Glucose measurement at bedsi deOrdered By: Alice Mckeon on 01-02-2025 Glucose [Mass/Vol] 173 mg/dL High 74-106 [facility] Hematocrit Auto (Bld) [Volum e fraction]Ordered By: Alice Mckeon on 01-02-2025 Hematocrit (Bld) [Volume fraction] 35.2 % Low 40-54 [facility] Hemoglobin measurementOrdere d By: Alice Mckeon on 01-02-2025 Hemoglobin (Bld) [Mass/Vol] 12.5 g/dL Low 13.0-16.5 [facility] MCV (mean corpuscular volume ) determinationOrdered By: Alice Mckeon on 01-02-2025 MCV (RBC) [Entitic vol] 85.4 fL 80-94 [facility] Mean corpuscular hemoglobin (MCH) determinationOrdered By: Alice Mckeon on 01-02-2025 MCH (RBC) [Entitic mass] 30.3 pg 27.0-32.0 [facility] Platelet countOrdered By: Rm Mckeon on 01-02-2025 Platelets (Bld) [#/Vol] 294 10*3/uL 150-450 [facility] Potassium measurement (mass/ volume)Ordered By: Alice Mckeon on 01-02-2025 Potassium (Unsp spec) [Mass/Vol] 3.9 mmol/L 3.3-5.1 [facility] RBC Auto (Bld) [#/Vol]Ordere d By: Alice Mckeon on 01-02-2025 RBC (Bld) [#/Vol] 4.12 10*6/uL Low 4.6-6.2 [facility] Serum creatinine measurement (mass/volume)Ordered By: Alice Mckeon on 01-02-2025 Creatinine [Mass/Vol] 0.99 mg/dL 0.70-1.20 [facility] Serum glucose measurement (m ass/volume)Ordered By: Alice Mckeon on 01-02-2025 Glucose [Mass/Vol] 122 mg/dL High 70-99 [facility] Serum or plasma calcium jung urement (mass/volume)Ordered By: Alice Mckeon on 01-02-2025 Calcium [Mass/Vol] 8.8 mg/dL 7.6-11.0 [facility] Serum or plasma urea nitroge n measurement (mass/volume)Ordered By: Alice Mckeon on 01-02-2025 Urea nitrogen [Mass/Vol] 13 mg/dL 4-19 [facility] Sodium levelOrdered By: Jelena Mckeon on 01-02-2025 Sodium [Moles/Vol] 132 mmol/L Low 133-145 [facility] White blood cell (WBC) count Ordered By: Alice Mckeon on 01-02-2025 WBC (Bld) [#/Vol] 11.1 10*3/uL High 4.4-11.0 [facility] Basic Metabolic Profile (BMP )on 01-01-2025 BUN/CRE 12.2 RATIO Normal 10-20 [facility] Comment on above: Performed By: #### L 501.2300, L500.4100, L100.0100 #### [facility] [address] [place], [address] Calcium [Mass/Vol] 8.9 mg/dL Normal 7.6-11.0 [facility] Comment on above: Performed By: #### L 501.2300, L500.4100, L100.0100 #### [facility] [address] [place], [address] Chloride [Moles/Vol] 94 mmol/L Low 98-108 [facility] Comment on above: Performed By: #### L 501.2300, L500.4100, L100.0100 #### [facility] [address] [place], [address] CO2 [Moles/Vol] 23.4 mmol/L Normal 21.0-32.0 [facility] Comment on above: Performed By: #### L 501.2300, L500.4100, L100.0100 #### [facility] [address] [place], [address] Creatinine [Mass/Vol] 0.96 mg/dL Normal 0.70-1.20 [facility] Comment on above: Performed By: #### L 501.2300, L500.4100, L100.0100 #### [facility] [address] [place], [address] ECRCL 89.53 ml/min Normal 50-250 [facility] Comment on above: Performed By: #### L 501.2300, L500.4100, L100.0100 #### [facility] [address] [place], [address] GAP 11 Normal 5-15 [facility] Comment on above: Performed By: #### L 501.2300, L500.4100, L100.0100 #### [facility] [address] [place], [address] GFR/1.73 sq M.predicted among non-blacks MDRD (S/P/Bld) [Vol rate/Area] 85 mL/min/{1.73_m2} Normal >60 [facility] Comment on above: Result Comment: mL/m in/1.73m2 CKD-EPI Creatinine Equation (2020) Performed By: #### L 501.2300, L500.4100, L100.0100 #### [facility] [address] [place], [address] Glucose [Mass/Vol] 139 mg/dL High 70-99 [facility] Comment on above: Performed By: #### L 501.2300, L500.4100, L100.0100 #### [facility] [address] [place], [address] Potassium [Moles/Vol] 3.8 mmol/L Normal 3.3-5.1 [facility] Comment on above: Performed By: #### L 501.2300, L500.4100, L100.0100 #### [facility] [address] [place], [address] Sodium [Moles/Vol] 129 mmol/L Low 133-145 [facility] Comment on above: Performed By: #### L 501.2300, L500.4100, L100.0100 #### [facility] [address] [place], [address] Urea nitrogen [Mass/Vol] 12 mg/dL Normal 4-19 [facility] Comment on above: Performed By: #### L 501.2300, L500.4100, L100.0100 #### [facility] [address] [place], [address] Bedside Glucoseon 01-01-2025 FINGERSTICK GLU 130 mg/dL High 74-106 [facility] Comment on above: Result Comment: KELBY GEMENT OF PATIENT CARE PER NURSING PROTOCOL Performed By: #### L 3700.3000, L3310.0000, L506.0200, L500.4050, L501.7300, L501.9520, L503.6005, L501.5200 #### [facility] [address] [place], [address] FINGERSTICK GLU 107 mg/dL High 74-106 [facility] Comment on above: Result Comment: KELBY GEMENT OF PATIENT CARE PER NURSING PROTOCOL Performed By: #### L 3700.3000, L3310.0000, L506.0200, L500.4050, L501.7300, L501.9520, L503.6005, L501.5200 #### [facility] [address] [place], [address] FINGERSTICK GLU 192 mg/dL High 74-106 [facility] Comment on above: Result Comment: KELBY GEMENT OF PATIENT CARE PER NURSING PROTOCOL Performed By: #### L 501.2300, L500.4100, L100.0100 #### [facility] [address] [place], [address] FINGERSTICK GLU 137 mg/dL High 74-106 [facility] Comment on above: Result Comment: KELBY LONGORIA OF PATIENT CARE PER NURSING PROTOCOL Performed By: #### L 503.0106 #### [facility] [address] [place], [address] CBC-Complete Blood Cnt No Di ffon 01-01-2025 Erythrocyte distribution width (RBC) [Ratio] 12.1 % Normal 11.6-14.6 [facility] Comment on above: Performed By: #### L 503.0106 #### [facility] [address] [place], [address] Hematocrit (Bld) [Volume fraction] 35.5 % Low 40-54 [facility] Comment on above: Performed By: #### L 503.0106 #### [facility] [address] [place], [address] Hemoglobin (Bld) [Mass/Vol] 12.8 g/dL Low 13.0-16.5 [facility] Comment on above: Performed By: #### L 503.0106 #### [facility] [address] [place], [address] MCH (RBC) [Entitic mass] 30.3 pg Normal 27.0-32.0 [facility] Comment on above: Performed By: #### L 503.0106 #### [facility] [address] [place], [address] MCHC (RBC) [Mass/Vol] 36.1 g/dL High 32-36 [facility] Comment on above: Performed By: #### L 503.0106 #### [facility] [address] [place], [address] MCV (RBC) [Entitic vol] 83.9 fL Normal 80-94 [facility] Comment on above: Performed By: #### L 503.0106 #### [facility] [address] [place], [address] Platelet mean volume (Bld) [Entitic vol] 8.9 fL Normal 6.2-12.0 [facility] Comment on above: Performed By: #### L 503.0106 #### [facility] [address] [place], [address] Platelets (Bld) [#/Vol] 303 10*3/uL Normal 150-450 [facility] Comment on above: Performed By: #### L 503.0106 #### [facility] [address] [place], [address] RBC (Bld) [#/Vol] 4.23 10*6/uL Low 4.6-6.2 [facility] Comment on above: Performed By: #### L 503.0106 #### [facility] [address] [place], [address] RDW SD 37.0 fl Normal 35.1-43.9 [facility] Comment on above: Performed By: #### L 503.0106 #### [facility] [address] [place], [address] WBC (Bld) [#/Vol] 13.0 10*3/uL High 4.4-11.0 [facility] Comment on above: Performed By: #### L 503.0106 #### [facility] [address] [place], [address] CRPon 01-01-2025 C-REACTIVE PROT 51.70 mg/L High 0.0-3.0 [facility] Comment on above: Performed By: #### L 501.2300, L500.4100, L100.0100 #### [facility] [address] [place], [address] Erythrocyte Sed Rateon 01-01 SED RATE 16 mm/hr Normal 0-20 [facility] Comment on above: Performed By: #### L 501.2300, L500.4100, L100.0100 #### [facility] [address] [place], [address] Erythrocyte sedimentation ra teOrdered By: Alice Mckeon on 01-01-2025 ESR (Bld) [Velocity] 16 mm/h 0-20 [facility] L509.7001on 01-01-2025 Procalcitonin 0.08 ng/mL Normal <=0.10 [facility] Comment on above: Result Comment: Inte rpretation: <0.10-0.25 ng/mL: Antibiotic therapy discouraged. Bacterial infection unlikely. 0.25-0.50 ng/mL: Antibiotic therapy encouraged. Bacterial infection possible. >0.50 ng/mL: Antibiotic therapy strongly encouraged. Suggestive of presence of bacterial infection. PCT should always be interpreted in the clinical context of the patient. Therefore, clinicians should use the PCT results in conjunction with other laboratory findings and clinical signs of the patient. Performed By: #### L 501.2300, L500.4100, L100.0100 #### [facility] [address] [place], [address] Phosphoruson 01-01-2025 Phosphate [Mass/Vol] 3.0 mg/dL Normal 2.7-4.5 [facility] Comment on above: Performed By: #### L 501.2300, L500.4100, L100.0100 #### [facility] [address] [place], [address] Procalcitonin [Mass/volume] in Serum or Plasma by ImmunoassayOrdered By: Alice Mckeon on 01-01-2025 Procalcitonin IA [Mass/Vol] 0.08 ng/mL <0.11 [facility] Serum or plasma C reactive p rotein measurement (mass/volume)Ordered By: Alice Mckeon on 01-01-2025 CRP [Mass/Vol] 51.70 mg/L High 0.0-3.0 [facility] Absolute lymphocyte countOrd ered By: Jorge Dysono on 12-31-2024 Lymphocytes Auto (Unsp spec) [#/Vol] 1.34 10*3/uL 0.83-4.51 [facility] Automated lymphocyte count a s percentage of total leukocytesOrdered By: Jorge Dysono on 12-31-2024 Lymphocytes/100 WBC Auto (Unsp spec) 8.9 % Low 19-41 [facility] Basic Metabolic Profile (BMP )on 12-31-2024 BUN/CRE 13.3 RATIO Normal 10-20 [facility] Comment on above: Performed By: #### L 501.2300, L500.4100, L100.0100 #### [facility] [address] [place], [address] Calcium [Mass/Vol] 9.0 mg/dL Normal 7.6-11.0 [facility] Comment on above: Performed By: #### L 501.2300, L500.4100, L100.0100 #### [facility] [address] [place], [address] Chloride [Moles/Vol] 93 mmol/L Low 98-108 [facility] Comment on above: Performed By: #### L 501.2300, L500.4100, L100.0100 #### [facility] [address] [place], [address] CO2 [Moles/Vol] 22.4 mmol/L Normal 21.0-32.0 [facility] Comment on above: Performed By: #### L 501.2300, L500.4100, L100.0100 #### [facility] [address] [place], [address] Creatinine [Mass/Vol] 0.94 mg/dL Normal 0.70-1.20 [facility] Comment on above: Performed By: #### L 501.2300, L500.4100, L100.0100 #### [facility] [address] [place], [address] ECRCL 90.98 ml/min Normal 50-250 [facility] Comment on above: Performed By: #### L 501.2300, L500.4100, L100.0100 #### [facility] [address] [place], [address] GAP 12 Normal 5-15 [facility] Comment on above: Performed By: #### L 501.2300, L500.4100, L100.0100 #### [facility] [address] [place], [address] GFR/1.73 sq M.predicted among non-blacks MDRD (S/P/Bld) [Vol rate/Area] 87 mL/min/{1.73_m2} Normal >60 [facility] Comment on above: Result Comment: mL/m in/1.73m2 CKD-EPI Creatinine Equation (2020) Performed By: #### L 501.2300, L500.4100, L100.0100 #### [facility] [address] [place], [address] Glucose [Mass/Vol] 121 mg/dL High 70-99 [facility] Comment on above: Performed By: #### L 501.2300, L500.4100, L100.0100 #### [facility] [address] [place], [address] Potassium [Moles/Vol] 4.0 mmol/L Normal 3.3-5.1 [facility] Comment on above: Performed By: #### L 501.2300, L500.4100, L100.0100 #### [facility] [address] [place], [address] Sodium [Moles/Vol] 128 mmol/L Low 133-145 [facility] Comment on above: Performed By: #### L 501.2300, L500.4100, L100.0100 #### [facility] [address] [place], [address] Urea nitrogen [Mass/Vol] 13 mg/dL Normal 4-19 [facility] Comment on above: Performed By: #### L 501.2300, L500.4100, L100.0100 #### [facility] [address] [place], [address] BUN/CRE 12.7 RATIO Normal 10-20 [facility] Comment on above: Performed By: #### L 3700.3000, L3310.0000, L506.0200, L500.4050, L501.7300, L501.9520, L503.6005, L501.5200 #### [facility] [address] [place], [address] Calcium [Mass/Vol] 8.9 mg/dL Normal 7.6-11.0 [facility] Comment on above: Performed By: #### L 3700.3000, L3310.0000, L506.0200, L500.4050, L501.7300, L501.9520, L503.6005, L501.5200 #### [facility] [address] [place], [address] Chloride [Moles/Vol] 91 mmol/L Low 98-108 [facility] Comment on above: Performed By: #### L 3700.3000, L3310.0000, L506.0200, L500.4050, L501.7300, L501.9520, L503.6005, L501.5200 #### [facility] [address] [place], [address] CO2 [Moles/Vol] 22.5 mmol/L Normal 21.0-32.0 [facility] Comment on above: Performed By: #### L 3700.3000, L3310.0000, L506.0200, L500.4050, L501.7300, L501.9520, L503.6005, L501.5200 #### [facility] [address] [place], [place], [address] Creatinine [Mass/Vol] 1.00 mg/dL Normal 0.70-1.20 [facility] Comment on above: Performed By: #### L 3700.3000, L3310.0000, L506.0200, L500.4050, L501.7300, L501.9520, L503.6005, L501.5200 #### [facility] [address] [place], [place], [address] ECRCL 85.52 ml/min Normal 50-250 [facility] Comment on above: Performed By: #### L 3700.3000, L3310.0000, L506.0200, L500.4050, L501.7300, L501.9520, L503.6005, L501.5200 #### [facility] [address] [place], [address] GAP 12 Normal 5-15 [facility] Comment on above: Performed By: #### L 3700.3000, L3310.0000, L506.0200, L500.4050, L501.7300, L501.9520, L503.6005, L501.5200 #### [facility] [address] [place], [address] GFR/1.73 sq M.predicted among non-blacks MDRD (S/P/Bld) [Vol rate/Area] 81 mL/min/{1.73_m2} Normal >60 [facility] Comment on above: Result Comment: mL/m in/1.73m2 CKD-EPI Creatinine Equation (2020) Performed By: #### L 3700.3000, L3310.0000, L506.0200, L500.4050, L501.7300, L501.9520, L503.6005, L501.5200 #### [place] [facility] [address] [place], [address] Glucose [Mass/Vol] 155 mg/dL High 70-99 [facility] Comment on above: Performed By: #### L 3700.3000, L3310.0000, L506.0200, L500.4050, L501.7300, L501.9520, L503.6005, L501.5200 #### [facility] [address] [place], [address] Potassium [Moles/Vol] 3.6 mmol/L Normal 3.3-5.1 [facility] Comment on above: Performed By: #### L 3700.3000, L3310.0000, L506.0200, L500.4050, L501.7300, L501.9520, L503.6005, L501.5200 #### [facility] [address] [place], [address] Sodium [Moles/Vol] 126 mmol/L Low 133-145 [facility] Comment on above: Performed By: #### L 3700.3000, L3310.0000, L506.0200, L500.4050, L501.7300, L501.9520, L503.6005, L501.5200 #### [facility] [address] [place], [address] Urea nitrogen [Mass/Vol] 13 mg/dL Normal 4-19 [facility] Comment on above: Performed By: #### L 3700.3000, L3310.0000, L506.0200, L500.4050, L501.7300, L501.9520, L503.6005, L501.5200 #### [facility] [address] [place], [address] BUN/CRE 11.0 RATIO Normal 10-20 [facility] Comment on above: Performed By: #### L 501.080 #### [facility] [address] [place], [address] Calcium [Mass/Vol] 8.8 mg/dL Normal 7.6-11.0 [facility] Comment on above: Performed By: #### L 501.080 #### [facility] [address] [place], [address] Chloride [Moles/Vol] 91 mmol/L Low 98-108 [facility] Comment on above: Performed By: #### L 501.080 #### [facility] [address] [place], [address] CO2 [Moles/Vol] 23.0 mmol/L Normal 21.0-32.0 [facility] Comment on above: Performed By: #### L 501.080 #### [facility] [address] [place], [address] Creatinine [Mass/Vol] 1.00 mg/dL Normal 0.70-1.20 [facility] Comment on above: Performed By: #### L 501.080 #### [facility] [address] [place], [address] ECRCL 85.52 ml/min Normal 50-250 [facility] Comment on above: Performed By: #### L 501.080 #### [facility] [address] [place], [address] GAP 12 Normal 5-15 [facility] Comment on above: Performed By: #### L 501.080 #### [facility] [address] [place], [address] GFR/1.73 sq M.predicted among non-blacks MDRD (S/P/Bld) [Vol rate/Area] 81 mL/min/{1.73_m2} Normal >60 [facility] Comment on above: Result Comment: mL/m in/1.73m2 CKD-EPI Creatinine Equation (2020) Performed By: #### L 501.080 #### [facility] [address] [place], [address] Glucose [Mass/Vol] 140 mg/dL High 70-99 [facility] Comment on above: Performed By: #### L 501.080 #### [facility] [address] [place], [address] Potassium [Moles/Vol] 3.7 mmol/L Normal 3.3-5.1 [facility] Comment on above: Performed By: #### L 501.080 #### [facility] [address] [place], [address] Sodium [Moles/Vol] 126 mmol/L Low 133-145 [facility] Comment on above: Performed By: #### L 501.080 #### [facility] [address] [place], [address] Urea nitrogen [Mass/Vol] 11 mg/dL Normal 4-19 [facility] Comment on above: Performed By: #### L 501.080 #### [facility] [address] [place], [address] BUN/CRE 11.1 RATIO Normal 10-20 [facility] Comment on above: Performed By: #### L 501.2300, L500.4100, L100.0100 #### [facility] [address] [place], [address] Calcium [Mass/Vol] 8.7 mg/dL Normal 7.6-11.0 [facility] Comment on above: Performed By: #### L 501.2300, L500.4100, L100.0100 #### [facility] [address] [place], [address] Chloride [Moles/Vol] 89 mmol/L Low 98-108 [facility] Comment on above: Performed By: #### L 501.2300, L500.4100, L100.0100 #### [facility] [address] [place], [address] CO2 [Moles/Vol] 20.5 mmol/L Low 21.0-32.0 [facility] Comment on above: Performed By: #### L 501.2300, L500.4100, L100.0100 #### [facility] [address] [place], [address] Creatinine [Mass/Vol] 0.97 mg/dL Normal 0.70-1.20 [facility] Comment on above: Performed By: #### L 501.2300, L500.4100, L100.0100 #### [facility] [address] [place], [address] ECRCL 88.16 ml/min Normal 50-250 [facility] Comment on above: Performed By: #### L 501.2300, L500.4100, L100.0100 #### [facility] [address] [place], [address] GAP 14 Normal 5-15 [facility] Comment on above: Performed By: #### L 501.2300, L500.4100, L100.0100 #### [facility] [address] [place], [address] GFR/1.73 sq M.predicted among non-blacks MDRD (S/P/Bld) [Vol rate/Area] 84 mL/min/{1.73_m2} Normal >60 [facility] Comment on above: Result Comment: mL/m in/1.73m2 CKD-EPI Creatinine Equation (2020) Performed By: #### L 501.2300, L500.4100, L100.0100 #### [facility] [address] [place], [address] Glucose [Mass/Vol] 168 mg/dL High 70-99 [facility] Comment on above: Performed By: #### L 501.2300, L500.4100, L100.0100 #### [facility] [address] [place], [address] Potassium [Moles/Vol] 3.5 mmol/L Normal 3.3-5.1 [facility] Comment on above: Performed By: #### L 501.2300, L500.4100, L100.0100 #### [facility] [address] [place], [address] Sodium [Moles/Vol] 123 mmol/L Low 133-145 [facility] Comment on above: Performed By: #### L 501.2300, L500.4100, L100.0100 #### [facility] [address] [place], [address] Urea nitrogen [Mass/Vol] 11 mg/dL Normal 4-19 [facility] Comment on above: Performed By: #### L 501.2300, L500.4100, L100.0100 #### [facility] [address] [place], [address] BUN Normal 4-19 [facility] Comment on above: Result Comment: NEVE R DRAWN WHILE IN ICU, SPOKE TO TAMIA MONTOYA, [place] TO CANCEL WHAT THEY NEVER DID AND UPDATE IT NOW Performed By: #### L 501.080 #### [facility] [facility] [address] [place], [address] BUN/CRE Normal 10-20 [facility] Comment on above: Result Comment: NEVE R DRAWN WHILE IN ICU, SPOKE TO TAMIA MONTOYA, OK TO CANCEL WHAT THEY NEVER DID AND UPDATE IT NOW Performed By: #### L 501.080 #### [facility] [address] [place], [address] Calcium Normal 7.6-11.0 [facility] Comment on above: Result Comment: NEVE R DRAWN WHILE IN ICU, SPOKE TO TAMIA MONTOYA, OK TO CANCEL WHAT THEY NEVER DID AND UPDATE IT NOW Performed By: #### L 501.080 #### [facility] [address] [place], [address] CL Normal 98-108 [facility] Comment on above: Result Comment: NEVE R DRAWN WHILE IN ICU, SPOKE TO TAMIA MONTOYA, OK TO CANCEL WHAT THEY NEVER DID AND UPDATE IT NOW Performed By: #### L 501.080 #### [facility] [address] [place], [address] CO2 Normal 21.0-32.0 [facility] Comment on above: Result Comment: NEVE R DRAWN WHILE IN ICU, SPOKE TO TAMIA MONTOYA, OK TO CANCEL WHAT THEY NEVER DID AND UPDATE IT NOW Performed By: #### L 501.080 #### [facility] [address] [place], [address] CREAT,SERUM Normal 0.70-1.20 [facility] Comment on above: Result Comment: NEVE R DRAWN WHILE IN ICU, SPOKE TO TAMIA MONTOYA, OK TO CANCEL WHAT THEY NEVER DID AND UPDATE IT NOW Performed By: #### L 501.080 #### [facility] [address] [place], [address] eGFR Normal >60 [facility] Comment on above: Result Comment: NEVE R DRAWN WHILE IN ICU, SPOKE TO TAMIA MONTOYA, OK TO CANCEL WHAT THEY NEVER DID AND UPDATE IT NOW Performed By: #### L 501.080 #### [facility] [address] [place], [address] GAP Normal 5-15 [facility] Comment on above: Result Comment: NEVE R DRAWN WHILE IN ICU, SPOKE TO TAMIA MONTOYA, OK TO CANCEL WHAT THEY NEVER DID AND UPDATE IT NOW Performed By: #### L 501.080 #### [facility] [address] [place] [facility] [place], [address] GLU Normal 70-99 [facility] Comment on above: Result Comment: NEVE R DRAWN WHILE IN ICU, SPOKE TO TAMIA MONTOYA, OK TO CANCEL WHAT THEY NEVER DID AND UPDATE IT NOW Performed By: #### L 501.080 #### [facility] [address] [place], [address] Potassium Normal 3.3-5.1 [facility] Comment on above: Result Comment: NEVE R DRAWN WHILE IN ICU, SPOKE TO TAMIA MONTOYA, OK TO CANCEL WHAT THEY NEVER DID AND UPDATE IT NOW Performed By: #### L 501.080 #### [facility] [address] [place], [address] Basic Metabolic Profile (BMP) Normal 133-145 [facility] Comment on above: Result Comment: NEVE R DRAWN WHILE IN ICU, SPOKE TO TAMIA MONTOYA, OK TO CANCEL WHAT THEY NEVER DID AND UPDATE IT NOW Performed By: #### L 501.080 #### [facility] [address] [place], [address] BUN/CRE 11.3 RATIO Normal 10-20 [facility] Comment on above: Performed By: #### L 501.2300, L500.4100, L100.0100 #### [facility] [address] [place], [address] Calcium [Mass/Vol] 8.3 mg/dL Normal 7.6-11.0 [facility] Comment on above: Performed By: #### L 501.2300, L500.4100, L100.0100 #### [facility] [address] [place], [address] Chloride [Moles/Vol] 89 mmol/L Low 98-108 [facility] Comment on above: Performed By: #### L 501.2300, L500.4100, L100.0100 #### [facility] [address] [place], [address] CO2 [Moles/Vol] 21.4 mmol/L Normal 21.0-32.0 [facility] Comment on above: Performed By: #### L 501.2300, L500.4100, L100.0100 #### [facility] [address] [place], [address] Creatinine [Mass/Vol] 0.89 mg/dL Normal 0.70-1.20 [facility] Comment on above: Performed By: #### L 501.2300, L500.4100, L100.0100 #### [facility] [address] [place], [address] ECRCL 96.09 ml/min Normal 50-250 [facility] Comment on above: Performed By: #### L 501.2300, L500.4100, L100.0100 #### [facility] [address] [place], [address] GAP 13 Normal 5-15 [facility] Comment on above: Performed By: #### L 501.2300, L500.4100, L100.0100 #### [facility] [address] [place], [address] GFR/1.73 sq M.predicted among non-blacks MDRD (S/P/Bld) [Vol rate/Area] 92 mL/min/{1.73_m2} Normal >60 [facility] Comment on above: Result Comment: mL/m in/1.73m2 CKD-EPI Creatinine Equation (2020) Performed By: #### L 501.2300, L500.4100, L100.0100 #### [facility] [address] [place], [address] Glucose [Mass/Vol] 136 mg/dL High 70-99 [facility] Comment on above: Performed By: #### L 501.2300, L500.4100, L100.0100 #### [facility] [address] [place], [address] Potassium [Moles/Vol] 3.7 mmol/L Normal 3.3-5.1 [facility] Comment on above: Performed By: #### L 501.2300, L500.4100, L100.0100 #### [facility] [address] [place], [address] Sodium [Moles/Vol] 123 mmol/L Low 133-145 [facility] Comment on above: Performed By: #### L 501.2300, L500.4100, L100.0100 #### [facility] [address] [place], [address] Urea nitrogen [Mass/Vol] 10 mg/dL Normal 4-19 [facility] Comment on above: Performed By: #### L 501.2300, L500.4100, L100.0100 #### [facility] [address] [place], [address] BUN/CRE 12.2 RATIO Normal 10-20 [facility] Comment on above: Performed By: #### L 501.2300, L500.4100, L100.0100 #### [facility] [address] [place], [address] Calcium [Mass/Vol] 8.3 mg/dL Normal 7.6-11.0 [facility] Comment on above: Performed By: #### L 501.2300, L500.4100, L100.0100 #### [facility] [address] [place], [address] Chloride [Moles/Vol] 87 mmol/L Low 98-108 [facility] Comment on above: Performed By: #### L 501.2300, L500.4100, L100.0100 #### [facility] [address] [place], [address] CO2 [Moles/Vol] 20.1 mmol/L Low 21.0-32.0 [facility] Comment on above: Performed By: #### L 501.2300, L500.4100, L100.0100 #### [facility] [address] [place], [address] Creatinine [Mass/Vol] 0.82 mg/dL Normal 0.70-1.20 [facility] Comment on above: Performed By: #### L 501.2300, L500.4100, L100.0100 #### [facility] [address] [place], [address] ECRCL 104.29 ml/min Normal 50-250 [facility] Comment on above: Performed By: #### L 501.2300, L500.4100, L100.0100 #### [facility] [address] [place], [address] GAP 14 Normal 5-15 [facility] Comment on above: Performed By: #### L 501.2300, L500.4100, L100.0100 #### [facility] [address] [place], [address] GFR/1.73 sq M.predicted among non-blacks MDRD (S/P/Bld) [Vol rate/Area] 94 mL/min/{1.73_m2} Normal >60 [facility] Comment on above: Result Comment: mL/m in/1.73m2 CKD-EPI Creatinine Equation (2020) Performed By: #### L 501.2300, L500.4100, L100.0100 #### [facility] [address] [place], [address] Glucose [Mass/Vol] 141 mg/dL High 70-99 [facility] Comment on above: Performed By: #### L 501.2300, L500.4100, L100.0100 #### [facility] [address] [place], [address] Potassium [Moles/Vol] 3.7 mmol/L Normal 3.3-5.1 [facility] Comment on above: Performed By: #### L 501.2300, L500.4100, L100.0100 #### [facility] [address] [place], [address] Sodium [Moles/Vol] 122 mmol/L Low 133-145 [facility] Comment on above: Performed By: #### L 501.2300, L500.4100, L100.0100 #### [facility] [address] [place], [address] Urea nitrogen [Mass/Vol] 10 mg/dL Normal 4-19 [facility] Comment on above: Performed By: #### L 501.2300, L500.4100, L100.0100 #### [facility] [address] [place], [address] Basophil percentageOrdered B y: Jorge Novak on 12-31-2024 Basophils/100 WBC (Bld) 0.3 % 0-1 [facility] Bedside Glucoseon 12-31-2024 FINGERSTICK GLU 125 mg/dL High 74-106 [facility] Comment on above: Result Comment: KELBY GEMENT OF PATIENT CARE PER NURSING PROTOCOL Performed By: #### L 503.0106 #### [facility] [address] [place], [address] FINGERSTICK GLU 218 mg/dL High 74-106 [facility] Comment on above: Result Comment: KELBY GEMENT OF PATIENT CARE PER NURSING PROTOCOL Performed By: #### L 3700.3000, L3310.0000, L506.0200, L500.4050, L501.7300, L501.9520, L503.6005, L501.5200 #### [facility] [address] [place], [address] FINGERSTICK GLU 153 mg/dL High 74-106 [facility] Comment on above: Result Comment: KELBY GEMENT OF PATIENT CARE PER NURSING PROTOCOL Performed By: #### L 3700.3000, L3310.0000, L506.0200, L500.4050, L501.7300, L501.9520, L503.6005, L501.5200 #### [facility] [address] [place], [address] FINGERSTICK GLU 125 mg/dL High 74-106 [facility] Comment on above: Result Comment: KELBY GEMENT OF PATIENT CARE PER NURSING PROTOCOL Performed By: #### L 501.080 #### [facility] [address] [place], [address] FINGERSTICK GLU 129 mg/dL High 74-106 [facility] Comment on above: Result Comment: KELBY GEMENT OF PATIENT CARE PER NURSING PROTOCOL Performed By: #### L 501.080 #### [facility] [address] [place], [address] CBC W/Diff, Automatedon 10-0 8-2024 Absolute Lymph 1.34 X10 3/uL Normal 0.83-4.51 [facility] Comment on above: Performed By: #### L 501.2300, L500.4100, L100.0100 #### [facility] [address] [place], [address] Absolute Neut 12.0 X10 3/uL High 2.0-7.7 [facility] Comment on above: Performed By: #### L 501.2300, L500.4100, L100.0100 #### [facility] [address] [place], [address] Basophils/100 WBC (Bld) 0.3 % Normal 0-1 [facility] Comment on above: Performed By: #### L 501.2300, L500.4100, L100.0100 #### [facility] [address] [place], [address] Eosinophils/100 WBC (Bld) 0.2 % Normal 0-5 [facility] Comment on above: Performed By: #### L 501.2300, L500.4100, L100.0100 #### [facility] [address] [place], [address] Erythrocyte distribution width (RBC) [Ratio] 11.8 % Normal 11.6-14.6 [facility] Comment on above: Performed By: #### L 501.2300, L500.4100, L100.0100 #### [facility] [address] [place], [address] Hematocrit (Bld) [Volume fraction] 39.2 % Low 40-54 [facility] Comment on above: Performed By: #### L 501.2300, L500.4100, L100.0100 #### [facility] [address] [place], [address] Hemoglobin (Bld) [Mass/Vol] 13.9 g/dL Normal 13.0-16.5 [facility] Comment on above: Performed By: #### L 501.2300, L500.4100, L100.0100 #### [facility] [address] [place], [address] IG% 0.500 Normal 0.0-0.9 [facility] Comment on above: Result Comment: IG% - Immature Granulocytes (promyelocytes, myelocytes and metamyelocytes) > 1% indicates that a LEFT SHIFT is Present. Performed By: #### L 501.2300, L500.4100, L100.0100 #### [facility] [address] [place], [address] Lymphocytes/100 WBC (Bld) 8.9 % Low 19-41 [facility] Comment on above: Performed By: #### L 501.2300, L500.4100, L100.0100 #### [facility] [address] [place], [address] MCH (RBC) [Entitic mass] 29.5 pg Normal 27.0-32.0 [facility] Comment on above: Performed By: #### L 501.2300, L500.4100, L100.0100 #### [facility] [address] [place], [address] MCHC (RBC) [Mass/Vol] 35.5 g/dL Normal 32-36 [facility] Comment on above: Performed By: #### L 501.2300, L500.4100, L100.0100 #### [facility] [address] [place], [address] MCV (RBC) [Entitic vol] 83.2 fL Normal 80-94 [facility] Comment on above: Performed By: #### L 501.2300, L500.4100, L100.0100 #### [facility] [address] [place], [address] Monocytes/100 WBC (Bld) 10.1 % High 0-10 [facility] Comment on above: Performed By: #### L 501.2300, L500.4100, L100.0100 #### [facility] [address] [place], [address] Neutrophils/100 WBC (Bld) 80.0 % High 47-70 [facility] Comment on above: Performed By: #### L 501.2300, L500.4100, L100.0100 #### [facility] [address] [place], [address] Nucleated RBC (Bld) [#/Vol] 0 10*3/uL Normal 0-5 [facility] Comment on above: Performed By: #### L 501.2300, L500.4100, L100.0100 #### [facility] [address] [place], [address] Platelet mean volume (Bld) [Entitic vol] 8.8 fL Normal 6.2-12.0 [facility] Comment on above: Performed By: #### L 501.2300, L500.4100, L100.0100 #### [facility] [address] [place], [address] Platelets (Bld) [#/Vol] 314 10*3/uL Normal 150-450 [facility] Comment on above: Performed By: #### L 501.2300, L500.4100, L100.0100 #### [facility] [address] [place], [address] RBC (Bld) [#/Vol] 4.71 10*6/uL Normal 4.6-6.2 [facility] Comment on above: Performed By: #### L 501.2300, L500.4100, L100.0100 #### [facility] [address] [place], [address] RDW SD 35.7 fl Normal 35.1-43.9 [facility] Comment on above: Performed By: #### L 501.2300, L500.4100, L100.0100 #### [facility] [address] [place], [address] WBC (Bld) [#/Vol] 15.0 10*3/uL High 4.4-11.0 [facility] Comment on above: Performed By: #### L 501.2300, L500.4100, L100.0100 #### [facility] [address] [place], [address] Calculated very low density lipoprotein (VLDL) cholesterol measurementOrdered By: Jorge Novak on 12-31-2024 Calculated very low density lipoprotein (VLDL) cholesterol measurement 21 mg/dL 5-40 [facility] Comprehensive Metabolic Prof ilon 12-31-2024 Albumin [Mass/Vol] 4.1 g/dL Normal 3.4-4.8 [facility] Comment on above: Performed By: #### L 3700.3000, L3310.0000, L506.0200, L500.4050, L501.7300, L501.9520, L503.6005, L501.5200 #### [facility] [address] [place], [address] Albumin/Globulin [Mass ratio] 1.6 {ratio} Normal 0.9-2.4 [facility] Comment on above: Performed By: #### L 3700.3000, L3310.0000, L506.0200, L500.4050, L501.7300, L501.9520, L503.6005, L501.5200 #### [facility] [address] [place], [address] ALK PHOS 74 U/L Normal 40-129 [facility] Comment on above: Performed By: #### L 3700.3000, L3310.0000, L506.0200, L500.4050, L501.7300, L501.9520, L503.6005, L501.5200 #### [facility] [address] [place], [address] ALT [Catalytic activity/Vol] 26 U/L Normal <=46 [facility] Comment on above: Performed By: #### L 3700.3000, L3310.0000, L506.0200, L500.4050, L501.7300, L501.9520, L503.6005, L501.5200 #### [facility] [address] [place], [address] AST [Catalytic activity/Vol] 56 U/L High <=37 [facility] Comment on above: Performed By: #### L 3700.3000, L3310.0000, L506.0200, L500.4050, L501.7300, L501.9520, L503.6005, L501.5200 #### [facility] [address] [place], [address] Bilirubin [Mass/Vol] 0.49 mg/dL Normal 0.00-1.30 [facility] Comment on above: Performed By: #### L 3700.3000, L3310.0000, L506.0200, L500.4050, L501.7300, L501.9520, L503.6005, L501.5200 #### [facility] [address] [place], [address] BUN/CRE 11.2 RATIO Normal 10-20 [facility] Comment on above: Performed By: #### L 3700.3000, L3310.0000, L506.0200, L500.4050, L501.7300, L501.9520, L503.6005, L501.5200 #### [facility] [address] [place], [address] Calcium [Mass/Vol] 8.4 mg/dL Normal 7.6-11.0 [facility] Comment on above: Performed By: #### L 3700.3000, L3310.0000, L506.0200, L500.4050, L501.7300, L501.9520, L503.6005, L501.5200 #### [facility] [address] [place], [address] Chloride [Moles/Vol] 89 mmol/L Low 98-108 [facility] Comment on above: Performed By: #### L 3700.3000, L3310.0000, L506.0200, L500.4050, L501.7300, L501.9520, L503.6005, L501.5200 #### [facility] [address] [place], [address] CO2 [Moles/Vol] 18.4 mmol/L Low 21.0-32.0 [facility] Comment on above: Performed By: #### L 3700.3000, L3310.0000, L506.0200, L500.4050, L501.7300, L501.9520, L503.6005, L501.5200 #### [facility] [address] [place], [address] Creatinine [Mass/Vol] 0.86 mg/dL Normal 0.70-1.20 [facility] Comment on above: Performed By: #### L 3700.3000, L3310.0000, L506.0200, L500.4050, L501.7300, L501.9520, L503.6005, L501.5200 #### [facility] [address] [place], [place], [phone] (071) ECRCL 99.44 ml/min Normal 50-250 [facility] Comment on above: Performed By: #### L 3700.3000, L3310.0000, L506.0200, L500.4050, L501.7300, L501.9520, L503.6005, L501.5200 #### [facility] [address] [place], [place], [phone] (752) GAP 15 Normal 5-15 [facility] Comment on above: Performed By: #### L 3700.3000, L3310.0000, L506.0200, L500.4050, L501.7300, L501.9520, L503.6005, L501.5200 #### [facility] [address] [place], [place], [phone] (484) GFR/1.73 sq M.predicted among non-blacks MDRD (S/P/Bld) [Vol rate/Area] 93 mL/min/{1.73_m2} Normal >60 [facility] Comment on above: Result Comment: mL/m in/1.73m2 CKD-EPI Creatinine Equation (2020) Performed By: #### L 3700.3000, L3310.0000, L506.0200, L500.4050, L501.7300, L501.9520, L503.6005, L501.5200 #### [facility] [address] [place], [address] Globulin (S) [Mass/Vol] 2.5 g/dL Normal 2.2-4.2 [facility] Comment on above: Performed By: #### L 3700.3000, L3310.0000, L506.0200, L500.4050, L501.7300, L501.9520, L503.6005, L501.5200 #### [facility] [address] [place], [address] Glucose [Mass/Vol] 130 mg/dL High 70-99 [facility] Comment on above: Performed By: #### L 3700.3000, L3310.0000, L506.0200, L500.4050, L501.7300, L501.9520, L503.6005, L501.5200 #### [facility] [address] [place], [address] Potassium [Moles/Vol] 3.7 mmol/L Normal 3.3-5.1 [facility] Comment on above: Performed By: #### L 3700.3000, L3310.0000, L506.0200, L500.4050, L501.7300, L501.9520, L503.6005, L501.5200 #### [facility] [address] [place], [address] Sodium [Moles/Vol] 123 mmol/L Low 133-145 [facility] Comment on above: Performed By: #### L 3700.3000, L3310.0000, L506.0200, L500.4050, L501.7300, L501.9520, L503.6005, L501.5200 #### [facility] [address] [place], [place], [id number] T PROT 6.6 g/dL Normal 5.9-8.4 [facility] Comment on above: Performed By: #### L 3700.3000, L3310.0000, L506.0200, L500.4050, L501.7300, L501.9520, L503.6005, L501.5200 #### [facility] [address] [place], [place], [id number] Urea nitrogen [Mass/Vol] 10 mg/dL Normal 4-19 [facility] Comment on above: Performed By: #### L 3700.3000, L3310.0000, L506.0200, L500.4050, L501.7300, L501.9520, L503.6005, L501.5200 #### [facility] [address] [place], [place], [id number] Electrocardiogram reportOrde red By: Sawyer Buck on 12-31-2024 EKG study [facility] Work Phone: Eosinophil percentageOrdered By: Jorge Novak on 12-31-2024 Eosinophils/100 WBC (Bld) 0.2 % 0-5 [facility] Immature granulocytes/100 WB C Auto (Bld)Ordered By: Jorge Novak on 12-31-2024 Immature granulocytes/100 WBC (Bld) 0.500 % 0.0-0.9 [facility] L509.6002on 12-31-2024 CORTISOL 12.70 ug/dL High 2.68-10.50 [facility] Comment on above: Performed By: #### L 3700.3000, L3310.0000, L506.0200, L500.4050, L501.7300, L501.9520, L503.6005, L501.5200 #### [facility] [address] [place], [address] LDL calc ser/plasOrdered By: Jorge Novak on 12-31-2024 Cholesterol in LDL [Mass/Vol] 39 mg/dL [facility] Lipid Profileon 12-31-2024 CHOL:HDL 2.24 Normal [facility] Comment on above: Performed By: #### L 501.2300, L500.4100, L100.0100 #### [facility] [address] [place], [address] Cholesterol [Mass/Vol] 108 mg/dL Normal <=200 [facility] Comment on above: Result Comment: Chol esterol level, Desirable <200 mg/dL Borderline high cholesterol 200-239 mg/dL High cholesterol >=240 mg/dL Recommendations of the NCEP Adult Treatment Panel for the following risk-cutoff thresholds for the [place] population. Performed By: #### L 501.2300, L500.4100, L100.0100 #### [facility] [address] [place], [address] Cholesterol in HDL [Mass/Vol] 48 mg/dL Normal [facility] Comment on above: Result Comment: Belen onal Cholesterol Education Program (NCEP) guidelines: <40 mg/dL: Low HDL-cholesterol (major risk factor for CHD) >= 60 mg/dL: High HDL-cholesterol (negative risk factor for CHD) HDL-cholesterol is affected by a number of factors, e.g. smoking, exercise, hormones, sex and age. Performed By: #### L 501.2300, L500.4100, L100.0100 #### [facility] [address] [place], [address] Cholesterol in LDL [Mass/Vol] 39 mg/dL Normal [facility] Comment on above: Result Comment: Bord umnadt=945-223 mg/dL Higher Cfrm=858 mg/dL or greater Friedwald Equation for LDL-C Performed By: #### L 501.2300, L500.4100, L100.0100 #### [facility] [address] [place], [address] Cholesterol in VLDL [Mass/Vol] 21 mg/dL Normal 5-40 [facility] Comment on above: Performed By: #### L 501.2300, L500.4100, L100.0100 #### [facility] [address] [place], [address] Triglyceride [Mass/Vol] 104 mg/dL Normal [facility] Comment on above: Result Comment: The drugs N-Acetylcysteine and Metamizole may falsely depress this assay. Normal range: <150 mg/dL Borderline High: 150-199 mg/dL High: 200-499 mg/dL Very High: >500 mg/dL Performed By: #### L 501.2300, L500.4100, L100.0100 #### [facility] [address] [place], [address] Magnesiumon 12-31-2024 Magnesium [Mass/Vol] 1.6 mg/dL Normal 1.5-2.2 [facility] Comment on above: Performed By: #### L 501.080 #### [facility] [address] [place], [address] Monocyte percentageOrdered B y: Jorge Novak on 12-31-2024 Monocytes/100 WBC (Bld) 10.1 % High 0-10 [facility] Neutrophil percentageOrdered By: Jorge Novak on 12-31-2024 Neutrophils/100 WBC (Bld) 80.0 % High 47-70 [facility] Osmolality urOrdered By: Sonu Novak on 12-31-2024 Osmolality (U) [Osmolality] 247 mOsm/KG >50 [facility] Osmolality, Urineon 01-01-20 25 OSMOLALITY,UR 247 mOsm/KG Normal [facility] Comment on above: Result Comment: Normal Urine Reference Ranges Random: 50 - 1200 mOsm/kg H20 depending on fluid intake Random: >850 mOsm/kg after 12 hour fluid restriction 24 hour: 300 - 900 mOsm/kg H2O Performed By: #### L 3700.3000, L3310.0000, L506.0200, L500.4050, L501.7300, L501.9520, L503.6005, L501.5200 #### [facility] [address] [place], [address] Phosphoruson 12-31-2024 Phosphate [Mass/Vol] 3.0 mg/dL Normal 2.7-4.5 [facility] Comment on above: Performed By: #### L 501.2300, L500.4100, L100.0100 #### [facility] [address] [place], [address] Serum or plasma cholesterol in HDL measurement (mass/volume)Ordered By: Jorge Novak on 12-31-2024 Cholesterol in HDL [Mass/Vol] 48 mg/dL >40 [facility] Serum or plasma cholesterol measurement (mass/volume)Ordered By: Jorge Novak on 12-31-2024 Cholesterol [Mass/Vol] 108 mg/dL <201 [facility] Serum or plasma cortisol chip surement (mass/volume)Ordered By: Alice Mckeon on 12-31-2024 Cortisol [Mass/Vol] 12.70 ug/dL High 2.68-10.50 [facility] Serum or plasma uric acid me asurement (mass/volume)Ordered By: Alice Mckeon on 12-31-2024 Urate [Mass/Vol] 5.0 mg/dL 3.5-7.2 [facility] Thyroid Stim Hormone (TSH)on 12-31-2024 TSH 2.890 uIU/mL Normal 0.300-4.200 [facility] Comment on above: Performed By: #### L 501.080 #### [facility] [address] [place], [address] Uric Acidon 12-31-2024 URIC 5.0 mg/dL Normal 3.5-7.2 [facility] Comment on above: Result Comment: The drugs N-Acetylcysteine and Metamizole may falsely depress this assay. Performed By: #### L 3700.3000, L3310.0000, L506.0200, L500.4050, L501.7300, L501.9520, L503.6005, L501.5200 #### [facility] [address] [place], [address] Urine Cultureon 12-31-2024 URC Culture exhibits no growth. Normal [facility] Comment on above: Performed By: #### L 3700.3000, L3310.0000, L506.0200, L500.4050, L501.7300, L501.9520, L503.6005, L501.5200 #### [facility] [address] [place], [address] Urine Sodiumon 12-31-2024 Sodium (U) [Moles/Vol] 73 mmol/L Normal Not Establ. [facility] Comment on above: Performed By: #### L 501.080 #### [facility] [address] [facility] [place], [address] Urine sodium measurement (mo les/volume)Ordered By: Alice Mckeon on 12-31-2024 Sodium (U) [Moles/Vol] 73 mmol/L Not Establ. [facility] 12 Lead EKGon 12-30-2024 12 Lead EKG [facility] Cardiovascular Services [address] [place] [address] 12 Lead EKG 12/30/24 1605 MR#: [id number] Acct: [id number] Name: NAYLA BENNETT Rep #: [id number] : 1955 69 From: Sawyer Buck MD Attending Dr: Dr. Alice Mckeon, Status: ADM I N Ordering Dr: Nestor Stauffer DO Date: 12/30/24 Location: [facility] Sex: M C Admitted: 12/30/24 Test Reason : Blood Pressure : */* mmHG Vent. Rate : 86 BPM Atrial Rate : 86 BPM P-R Int : 222 ms QRS Dur : 86 ms QT Int : 344 ms P-R-T Axes : 31 35 109 degrees QTcB Int : 411 ms Sinus rhythm with 1st degree A-V block with Premature supraventricular complexes T wave abnormality, consider lateral ischemia Abnormal ECG Confirmed by SAWYER BUCK MD ([id number]), editor producer ANA PARHAM ([id number]) on 12/31/2024 1:28:20 PM Referred By: SHELDON Confirmed By: SAWYER BUCK MD 12/31/24 1328 Date Sawyer Buck MD CC: Dr. Eddi Lynn MD; Dr. Alice Mckeon DO; Dr. Nestor Stauffer DO Signed Normal [facility] Abdomen/Pelvis W IV Cont ONL Yon 12-30-2024 Abdomen/Pelvis W IV Cont ONLY [facility] Imaging Services [address] [place] [address] [id number] Abdomen/Pelvis W IV Cont ONLY MR#: [id number] Acct: [id number] Name: NAYLA BENNETT Rep #: [id number] : 1955 M 69 From: Radha Tom PCP: Dr. Eddi Lynn MD Status: REG ER Study: Abdomen/Pelvis W IV Cont ONLY Date of Exam: Exam# [id number] Ordering Dr: Nestor Stauffer DO PROCEDURE: ABDOMEN/PELVIS W IV CONT ONLY 12/30/2024 REASON FOR EXAM: LACTIC ACIDOSIS, ELEVATED WHITE COUNT TECHNIQUE: Procedure Code: CTABDPELIV Modality: CT Procedure: ABDOMEN/PELVIS W IV CONT ONLY Coronal and Sagittal reconstruction series were provided. CONTRAST: 100 mL of Isovue 370 One or more dose reduction techniques were used (e.g., Automated exposure control, adjustment of the mA and/or kV according to patient size, use of iterative reconstruction technique. RADIATION DOSE SUMMARY: DLP: 1436 mGycm COMPARISON: None FINDINGS: Limited sections of the lung bases demonstrate no focal pulmonary mass or consolidations. Bibasilar subsegmental atelectasis. The liver, spleen, pancreas, and both adrenal glands demonstrate no acute findings. Fatty atrophy of pancreas. The gallbladder is unremarkable. The stomach is unremarkable. The small bowel loops are not dilated. The appendix is not clearly identified, although there are no secondary signs of appendicitis. No colonic obstruction. There is no free air or significant free fluid. Distended urinary bladder with mild hydroureter which may reflect reflux. The pelvic structures are intact. There is no solid pelvic mass. No significant lymphadenopathy. The aorta and IVC demonstrate no acute findings. Visualized osseous structures demonstrate no acute abnormality. CT/Abdomen/Pelvis W IV Cont ONLY IMPRESSION: Distended urinary bladder with mild hydroureter bilaterally which may reflect reflux. Otherwise no acute intra-abdominal process. Reading Location: [id number] CC: Dr. Eddi Lynn MD; Dr. 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 Normal [facility] Absolute lymphocyte countOrd ered By: Nestor Stauffer on 12-30-2024 Lymphocytes Auto (Unsp spec) [#/Vol] 3.04 10*3/uL 0.83-4.51 [facility] Absolute neutrophil countOrd ered By: Nestor Stauffer on 12-30-2024 Neutrophils (Bld) [#/Vol] 8.3 10*3/uL High 2.0-7.7 [facility] Activated partial thrombopla stin time (aPTT) in platelet poor plasma by coagulation aOrdered By: Nestor Stauffer on 12-30-2024 aPTT Coag (PPP) [Time] 23.2 s Low 24.1-36.2 [facility] Anion gap in Serum or Plasma Ordered By: Nestor Stauffer on 12-30-2024 Anion gap [Moles/Vol] 17 mmol/L High 5-15 [facility] Automated lymphocyte count a s percentage of total leukocytesOrdered By: Nestor Stauffer on 12-30-2024 Lymphocytes/100 WBC Auto (Unsp spec) 23.5 % 19-41 [facility] BUN/creatinine ratioOrdered By: Nestor Stauffer on 12-30-2024 Urea nitrogen/Creatinine [Mass ratio] 12.8 mg/mg 10-20 [facility] Basophil percentageOrdered B y: Nestor Stauffer on 10-07-2025 Basophils/100 WBC (Bld) 0.4 % 0-1 [facility] Bilirubin Test strip Ql (U)O rdered By: Nestor Stauffer on 12-30-2024 Bilirubin Ql (U) Negative Negative [facility] Bilirubin, totalOrdered By: Jorge Novak on 12-30-2024 Bilirubin [Mass/Vol] 0.49 mg/dL 0.00-1.30 [facility] Bilirubin, totalOrdered By: Nestor Stauffer on 12-30-2024 Bilirubin [Mass/Vol] 0.36 mg/dL 0.00-1.30 [facility] Blood cultureOrdered By: Ana Stauffer on 12-30-2024 Bacteria identified Cx Nom (Bld) No growth in 5 days. [facility] Bacteria identified Cx Nom (Bld) No growth in 5 days. [facility] Bacteria identified Cx Nom (Bld) No growth in 5 days. [facility] Bacteria identified Cx Nom (Bld) No growth in 5 days. [facility] Brain/Head without Contrasto n 12-30-2024 Brain/Head without Contrast [facility] Imaging Services [address] [place] [address] Brain/Head without Contrast MR#: [id number] Acct: [id number] Name: NAYLA BENNETT Rep #: [id number] : 1955 M 69 From: Otilio Rudolph MD PCP: Dr. Eddi Lynn MD Status: [facility] ER Study: Brain/Head without Contrast Date of Exam: 10/17 Exam# [id number] Ordering Dr: Nestor Stauffer DO PROCEDURE: BRAIN/HEAD WITHOUT CONTRAST 12/30/2024 REASON FOR EXAM: FALLX2 TECHNIQUE: Procedure Code: CTBR Modality: CT Procedure: BRAIN/HEAD WITHOUT CONTRAST Coronal and Sagittal reconstruction series were provided. One or more dose reduction techniques were used (e.g., Automated exposure control, adjustment of the mA and/or kV according to patient size, use of iterative reconstruction technique. COMPARISON: 12/19/2024. FINDINGS: Mild global parenchymal atrophy. Mild chronic microvascular ischemia. No evidence of acute hemorrhage or infarction. No extra-axial blood or fluid collections. Bilateral maxillary sinus retention cysts. Sphenoid, ethmoid, and frontal sinus mucosal thickening. The mastoid air cells are clear. The calvarial vault and skull base are intact. CT/Brain/Head without Contrast IMPRESSION: No acute intracranial abnormality. Reading Location: [id number] CC: Dr. Eddi Lynn MD; Dr. 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 Normal [facility] CBC W/Diff, Automatedon 10-0 Absolute Lymph 3.04 X10 3/uL Normal 0.83-4.51 [facility] Comment on above: Performed By: #### L 501.2300, L500.4100, L100.0100 #### [facility] [address] [place], [address] Absolute Neut 8.3 X10 3/uL High 2.0-7.7 [facility] Comment on above: Performed By: #### L 501.2300, L500.4100, L100.0100 #### [facility] [address] [place], [address] Basophils/100 WBC (Bld) 0.4 % Normal 0-1 [facility] Comment on above: Performed By: #### L 501.2300, L500.4100, L100.0100 #### [facility] [address] [place], [address] Eosinophils/100 WBC (Bld) 0.9 % Normal 0-5 [facility] Comment on above: Performed By: #### L 501.2300, L500.4100, L100.0100 #### [facility] [address] [place], [address] Erythrocyte distribution width (RBC) [Ratio] 11.9 % Normal 11.6-14.6 [facility] Comment on above: Performed By: #### L 501.2300, L500.4100, L100.0100 #### [facility] [address] [place], [address] Hematocrit (Bld) [Volume fraction] 36.5 % Low 40-54 [facility] Comment on above: Performed By: #### L 501.2300, L500.4100, L100.0100 #### [facility] [address] [place], [address] Hemoglobin (Bld) [Mass/Vol] 13.6 g/dL Normal 13.0-16.5 [facility] Comment on above: Performed By: #### L 501.2300, L500.4100, L100.0100 #### [facility] [address] [place], [address] IG% 0.500 Normal 0.0-0.9 [facility] Comment on above: Result Comment: IG% - Immature Granulocytes (promyelocytes, myelocytes and metamyelocytes) > 1% indicates that a LEFT SHIFT is Present. Performed By: #### L 501.2300, L500.4100, L100.0100 #### [facility] [address] [place], [address] Lymphocytes/100 WBC (Bld) 23.5 % Normal 19-41 [facility] Comment on above: Performed By: #### L 501.2300, L500.4100, L100.0100 #### [facility] [address] [place], [address] MCH (RBC) [Entitic mass] 30.8 pg Normal 27.0-32.0 [facility] Comment on above: Performed By: #### L 501.2300, L500.4100, L100.0100 #### [facility] [address] [place], [address] MCHC (RBC) [Mass/Vol] 37.3 g/dL High 32-36 [facility] Comment on above: Performed By: #### L 501.2300, L500.4100, L100.0100 #### [facility] [address] [place], [address] MCV (RBC) [Entitic vol] 82.6 fL Normal 80-94 [facility] Comment on above: Performed By: #### L 501.2300, L500.4100, L100.0100 #### [facility] [address] [place], [address] Monocytes/100 WBC (Bld) 10.5 % High 0-10 [facility] Comment on above: Performed By: #### L 501.2300, L500.4100, L100.0100 #### [facility] [address] [place], [address] Neutrophils/100 WBC (Bld) 64.2 % Normal 47-70 [facility] Comment on above: Performed By: #### L 501.2300, L500.4100, L100.0100 #### [facility] [address] [place], [address] Nucleated RBC (Bld) [#/Vol] 0 10*3/uL Normal 0-5 [facility] Comment on above: Performed By: #### L 501.2300, L500.4100, L100.0100 #### [facility] [address] [place], [address] Platelet mean volume (Bld) [Entitic vol] 8.8 fL Normal 6.2-12.0 [facility] Comment on above: Performed By: #### L 501.2300, L500.4100, L100.0100 #### [facility] [address] [place], [address] Platelets (Bld) [#/Vol] 287 10*3/uL Normal 150-450 [facility] Comment on above: Performed By: #### L 501.2300, L500.4100, L100.0100 #### [facility] [address] [place], [address] RBC (Bld) [#/Vol] 4.42 10*6/uL Low 4.6-6.2 [facility] Comment on above: Performed By: #### L 501.2300, L500.4100, L100.0100 #### [facility] [address] [place], [address] RDW SD 35.8 fl Normal 35.1-43.9 [facility] Comment on above: Performed By: #### L 501.2300, L500.4100, L100.0100 #### [facility] [address] [place], [address] WBC (Bld) [#/Vol] 12.9 10*3/uL High 4.4-11.0 [facility] Comment on above: Performed By: #### L 501.2300, L500.4100, L100.0100 #### [facility] [address] [place], [address] CO2 (BldV) [Moles/Vol]Ordere d By: Jorge Novak on 12-30-2024 CO2 [Moles/Vol] 25 mmol/L 23-33 [facility] Carbon dioxide, total [Moles /volume] in Central venous bloodOrdered By: Nestor Stauffer on 12-30-2024 CO2 [Moles/Vol] 20.9 mmol/L Low 21.0-32.0 [facility] Chloride assayOrdered By: Tye Stauffer on 12-30-2024 Chloride [Moles/Vol] 81 mmol/L Low 98-108 [facility] Comprehensive Metabolic Prof ilon 12-30-2024 Albumin [Mass/Vol] 4.5 g/dL Normal 3.4-4.8 [facility] Comment on above: Performed By: #### L 501.2300, L500.4100, L100.0100 #### [facility] [address] [place], [address] Albumin/Globulin [Mass ratio] 1.8 {ratio} Normal 0.9-2.4 [facility] Comment on above: Performed By: #### L 501.2300, L500.4100, L100.0100 #### [facility] [address] [place], [address] ALK PHOS 80 U/L Normal 40-129 [facility] Comment on above: Performed By: #### L 501.2300, L500.4100, L100.0100 #### [facility] [address] [place], [address] ALT [Catalytic activity/Vol] 27 U/L Normal <=46 [facility] Comment on above: Performed By: #### L 501.2300, L500.4100, L100.0100 #### [facility] [address] [place], [address] AST [Catalytic activity/Vol] 57 U/L High <=37 [facility] Comment on above: Performed By: #### L 501.2300, L500.4100, L100.0100 #### [facility] [address] [place], [address] Bilirubin [Mass/Vol] 0.36 mg/dL Normal 0.00-1.30 [facility] Comment on above: Performed By: #### L 501.2300, L500.4100, L100.0100 #### [facility] [address] [place], [address] BUN/CRE 12.8 RATIO Normal 10-20 [facility] Comment on above: Performed By: #### L 501.2300, L500.4100, L100.0100 #### [facility] [address] [place], [address] Calcium [Mass/Vol] 9.2 mg/dL Normal 7.6-11.0 [facility] Comment on above: Performed By: #### L 501.2300, L500.4100, L100.0100 #### [facility] [address] [place], [address] Chloride [Moles/Vol] 81 mmol/L Low 98-108 [facility] Comment on above: Performed By: #### L 501.2300, L500.4100, L100.0100 #### [facility] [address] [place], [address] CO2 [Moles/Vol] 20.9 mmol/L Low 21.0-32.0 [facility] Comment on above: Performed By: #### L 501.2300, L500.4100, L100.0100 #### [facility] [address] [place], [address] Creatinine [Mass/Vol] 0.93 mg/dL Normal 0.70-1.20 [facility] Comment on above: Performed By: #### L 501.2300, L500.4100, L100.0100 #### [facility] [address] [place], [address] ECRCL 92.33 ml/min Normal 50-250 [facility] Comment on above: Performed By: #### L 501.2300, L500.4100, L100.0100 #### [facility] [address] [place], [address] GAP 17 High 5-15 [facility] Comment on above: Performed By: #### L 501.2300, L500.4100, L100.0100 #### [facility] [address] [place], [address] GFR/1.73 sq M.predicted among non-blacks MDRD (S/P/Bld) [Vol rate/Area] 88 mL/min/{1.73_m2} Normal >60 [facility] Comment on above: Result Comment: mL/m in/1.73m2 CKD-EPI Creatinine Equation (2020) Performed By: #### L 501.2300, L500.4100, L100.0100 #### [facility] [address] [place], [address] Globulin (S) [Mass/Vol] 2.4 g/dL Normal 2.2-4.2 [facility] Comment on above: Performed By: #### L 501.2300, L500.4100, L100.0100 #### [facility] [address] [place], [address] Glucose [Mass/Vol] 105 mg/dL High 70-99 [facility] Comment on above: Performed By: #### L 501.2300, L500.4100, L100.0100 #### [facility] [address] [place], [address] Potassium [Moles/Vol] 4.1 mmol/L Normal 3.3-5.1 [facility] Comment on above: Performed By: #### L 501.2300, L500.4100, L100.0100 #### [facility] [address] [place], [address] Sodium [Moles/Vol] 119 mmol/L Invalid Interpretation Code 133-145 [facility] Comment on above: Result Comment: Crit ical Result(s) Called BEATRICE at: 1700 by: VICENTE??Results read back by same. Performed By: #### L 501.2300, L500.4100, L100.0100 #### [facility] [address] [place], [address] T PROT 6.9 g/dL Normal 5.9-8.4 [facility] Comment on above: Performed By: #### L 501.2300, L500.4100, L100.0100 #### [facility] [address] [place], [address] Urea nitrogen [Mass/Vol] 12 mg/dL Normal 4-19 [facility] Comment on above: Performed By: #### L 501.2300, L500.4100, L100.0100 #### [facility] [address] [place], [address] Emergency Department Summary on 12-30-2024 Emergency Department Summary [facility] Medical Records Department [address] [place] [address] Emergency Department Summary 12/30/24 MR#: [id number] Acct: [id number] Name: NAYLA BENNETT Rep #: [id number] : 1955 69 From: Nestor Stauffer DO PCP: Dr. Eddi Lynn MD Status:REG ER Location: ED HPI History of Present Illness Chief Complaint: Fall Narrative Narrative: Patient is a 69-year-old male with a past medical history of nonverbal at baseline, schizophrenia, seizures, hypertension, hypokalemia, type 2 diabetes who presents to the emergency department with a chief complaint of multiple falls today according to EMS. History of present illness is unobtainable from the patient therefore acute care caveat applies. According to them he is currently being treated for UTI however they are unsure what antibiotics he is on. [facility] Medical History Developmental non-verbal disorder Vitamin B12 deficiency Epilepsy, unspecified, not intractable, without status epilepticus Schizophrenia Seizure disorder Hyperlipidemia HTN (hypertension) Diabetes mellitus, type II Home Medications ???Medication ???Instructions ???Recorded ???Last Taken ???Type loratadine 10 mg tablet 10 mg PO DAILY allergies 07/16/16 Unknown History omega 0-uvu-fub-fish oil 300 1 ea PO BID 07/16/16 Unknown Histo ry mg-1,000 mg capsule risperidone 3 mg tablet 3 mg PO QHS 07/16/16 Unknown Histo ry atorvastatin 40 mg tablet 40 mg PO QHS 11/27/19 Unknown Hist ory metformin 1,000 mg tablet 1,000 mg PO BID 11/27/19 Unknown H istory fluticasone propionate 50 1 spray intranasal QHS 12/02/19 Un known History mcg/actuation nasal spray,suspension polyethylene glycol 3350 17 gram 17 g PO BID 12/02/19 Unknown Histo ry oral powder packet tamsulosin 0.4 mg capsule 0.4 mg PO DAILY 12/02/19 Unknown H istory levothyroxine 50 mcg tablet 50 mcg PO QDAY 11/28/23 Unknown Hi story cholecalciferol (vitamin D3) 1,250 1,250 mcg PO QMONTH #1 cap 05/28 Unknown Rx mcg (50,000 unit) capsule mecobalamin (vitamin B12) 1,000 1,000 mcg PO DAILY #30 tabs Unknown Rx mcg chewable tablet (B12 Active) chlorhexidine gluconate 0.12 % 15 ml buccal BID 11/26/24 Unknown History mouthwash olmesartan 40 mg tablet 40 mg PO QAM #30 tabs 11/26/24 Unk nown Rx phenobarbital 60 mg tablet 120 mg (2 x 60 mg) PO QHS #56 tabs 11/26/24 Unknown Rx amlodipine 10 mg tablet (Norvasc) 10 mg PO DAILY #30 tabs 12/19/24 Unknown Rx beta carotene 30 mg capsule 30 mg PO DAILY 12/22/24 Unknown Hi story levetiracetam 1,000 mg tablet 1,000 mg PO BID 12/22/24 Unknown H istory hydrochlorothiazide 25 mg tablet 25 mg PO DAILY 12/30/24 Unknown Hi story Allergy/AdvReac Type Severity Reaction Status Date / Time No Known Allergies Allergy Verified 11/26/24 10:35 Surgical History No history of previous surgery Social History housing: other details: senior care Smoking Status: Never smoker Electronic Cigarette Use: not used second hand exposure: No alcohol intake: never substance use type: does not use seatbelt use: always ROS ROS ED ROS Narrative Review of systems unobtainable from the patient secondary to him being nonverbal at baseline therefore acute care caveat applies EXAM Physical Exam Narrative Exam Narrative: General: Patient lying in bed rest comfortably does not appear to be acute distress Head: Atraumatic, normocephalic Eyes: PERRL bilaterally, EOMI bilaterally, no conjunctival injection noted Neck: Soft, supple, trachea midline Cardiovascular: Regular rate and rhythm Respiratory: Clear to auscultation bilaterally Abdomen: Soft, nondistended Extremities: Patient moving all extremities on exam Neurological: Patient is at his baseline according to EMS. He was following commands when asked to raise his hands bilaterally he was able to do so. When he is asked to close his eyes he was able to do this as well. Skin: Warm, dry, intact no rashes or lesions noted Const Vital Signs: 12/30/24 15:48 12/30/24 15:52 12/30/24 16:09 Temperature 97.9 F Temperature Source Temporal Pulse Rate 87 Respiratory Rate 17 Respiratory Effort Normal Non-Labored Blood Pressure 158/85 H Blood Pressure Mean 109 Pulse Ox 95 Oxygen Delivery Method Room Air Room Air Room Air 12/30/24 17:08 12/30/24 18:25 12/30/24 19:00 Temperature 97.7 F L 98.1 F 98.1 F Temperature Source Temporal Temporal Oral Pulse Rate 85 86 92 Respiratory Rate 16 19 H 20 H Respiratory Effort Blood Pressure 169/71 H 175/96 H 197/111 H Blood Pressure Mean 103 122 139 Pulse O (more content not included)... Normal [facility] Eosinophil percentageOrdered By: Nestor Stauffer on 12-30-2024 Eosinophils/100 WBC (Bld) 0.9 % 0-5 [facility] Erythrocyte distribution wid th ratioOrdered By: Nestor Stauffer on 12-30-2024 Erythrocyte distribution width (RBC) [Ratio] 11.9 % 11.6-14.6 [facility] Erythrocyte distribution wid th standard deviationOrdered By: Nestor Stauffer on 12-30-2024 Erythrocyte distribution width (RBC) [Ratio] 35.8 fl 35.1-43.9 [facility] Folate [Moles/volume] in Ser um or PlasmaOrdered By: Jorge Novak on 12-30-2024 Folate [Moles/Vol] 10.80 ng/mL 4.60-34.80 [facility] Folates,Serum (Folic Acid)on 12-30-2024 FOLATES,SERUM 10.80 ng/mL Normal 4.60-34.80 [facility] Comment on above: Result Comment: Hemo lysis, Results will be affected, Requires Recollection. Performed By: #### L 3700.3000, L3310.0000, L506.0200, L500.4050, L501.7300, L501.9520, L503.6005, L501.5200 #### [facility] [address] [place], [address] Glomerular filtration rate ( GFR) estimation/1.73 sq m using serum, plasma, or whole bOrdered By: Nestor Stauffer on 12-30-2024 GFR/1.73 sq M.predicted among non-blacks MDRD (S/P/Bld) [Vol rate/Area] 88 mL/min/{1.73_m2} >60 [facility] Comment on above: mL/min/1.73m2 CKD-EP I Creatinine Equation (2020) H AND P Exam - [facility] 12-30-2024 H&P Exam - Hospitalist [facility] Medical Records Department [address] [place] [address] H P Exam - Hospitalist 12/30/242046 MR#: [id number] Acct: [id number] Name: NAYLA BENNETT Rep #: [id number] : 1955 69 From: Jorge Herrera DO PCP: Dr. Eddi Lynn MD Status:ADM IN Location: ICU ICU01-1 [facility] - General General Date of Admission: 12/30/24 Date of Service: 12/30/24 Chief Complaint: Multiple Falls. HPI Narrative NAYLA BENNETT, is a 69 M with a past medical history of essential hypertension; on amlodipine, olmesartan and hydrochlorothiazide, hyperlipidemia; on atorvastatin, hypothyroidism; on levothyroxine, obesity (class I); with BMI of 31.2 this admission, DM-2; of unknown control on metformin twice daily, history of schizophrenia; with developmental delay causing patient to be poorly verbal at baseline on risperidone nightly, seizure disorder (with absence seizures); on levetiracetam twice daily plus phenobarbital nightly followed by Dr. Feliciano of neurology, history of B12 deficiency, history of vitamin D deficiency, BPH; on tamsulosin, chronic constipation; on polyethylene glycol twice daily, seasonal allergies; on loratadine plus fluticasone nasal spray and recently diagnosed UTI; on unknown antibiotic who presents to [facility] ER after staff at his [facility] noted multiple falls. As indicated above Mr. Bennett is not a reliable historian as he is nonverbal at baseline. Therefore, information was gathered from chart, medical staff and computer. According to the records EMS was activated today after the staff at his [facility] noted multiple falls. The ER physician informing the patient is able to follow commands with no reports of seizure activity, significant injury with recent his multiple falls or excessive water intake. In the ER he was noted to have severe Acute Hyponatremia of 119 mmol/L present on admission suspected to be due to Adverse Drug Reaction to hydrochlorothiazide complicated by Leukocytosis of 12.9 K with Lactic Acidosis of 5.1 mmol/L both present on admission concerning for Adverse Drug Reaction to metformin with a corresponding negative urinalysis and head CT without contrast that revealed no acute process, cervical spine CT that showed no acute osseous abnormalities with spondylosis and CT scan of abdomen and pelvis positive for evidence of distended urinary bladder with mild hydroureter bilaterally which may be reflux with no acute intra-abdominal process otherwise compounded by elevated blood pressure of 196/85 mmHg present on admission consistent with Uncontrolled Hypertension in the setting of otherwise unremarkable vital signs and laboratory studies. He was then admitted to the ICU for ongoing care for status is expected to extend beyond 2 midnights. [facility] Medical History (Updated 12/30/24 @ 21:[address] Jorge Herrera, DO) Developmental non-verbal disorder Vitamin B12 deficiency Epilepsy, unspecified, not intractable, without status epilepticus Schizophrenia Seizure disorder Hyperlipidemia HTN (hypertension) Diabetes mellitus, type II Home Medications ???Medication ???Instructions ???Recorded ???Last Taken ???Type loratadine 10 mg tablet 10 mg PO DAILY allergies 07/16/16 Unknown History omega 4-jtr-wff-fish oil 300 1 ea PO BID 07/16/16 Unknown Histo ry mg-1,000 mg capsule risperidone 3 mg tablet 3 mg PO QHS 07/16/16 Unknown Histo ry atorvastatin 40 mg tablet 40 mg PO QHS 11/27/19 Unknown Hist ory metformin 1,000 mg tablet 1,000 mg PO BID 11/27/19 Unknown H istory fluticasone propionate 50 1 spray intranasal QHS 12/02/19 Un known History mcg/actuation nasal spray,suspension polyethylene glycol 3350 17 gram 17 g PO BID 12/02/19 Unknown Histo ry oral powder packet tamsulosin 0.4 mg capsule 0.4 mg PO DAILY 12/02/19 Unknown H istory levothyroxine 50 mcg tablet 50 mcg PO QDAY 11/28/23 Unknown Hi story cholecalciferol (vitamin D3) 1,250 1,250 mcg PO QMONTH #1 cap 05/28 Unknown Rx mcg (50,000 unit) capsule mecobalamin (vitamin B12) 1,000 1,000 mcg PO DAILY #30 tabs Unknown Rx mcg chewable tablet (B12 Active) chlorhexidine gluconate 0.12 % 15 ml buccal BID 11/26/24 Unknown History mouthwash olmesartan 40 mg tablet 40 mg PO QAM #30 tabs 11/26/24 Unk nown Rx phenobarbital 60 mg tablet 120 mg (2 x 60 mg) PO QHS #56 tabs 11/26/24 Unknown Rx amlodipine 10 mg tablet (Norvasc) 10 mg PO DAILY #30 tabs 12/19/24 Unknown Rx beta carotene 30 mg capsule 30 mg PO DAILY 12/22/24 Unknown Hi story levetiracetam 1,000 mg tablet 1,000 mg PO BID 12/22/24 Unknown H istory hydrochlorothiazide 25 mg tablet 25 mg PO DAILY 12/30/24 Unknown Hi story Allergy/AdvReac Type Severity Reaction Status Date / Time hydrochlorothiazide AdvReac Severe Hyponatremi Verified 12/30/24 2 (more content not included)... Normal [facility] Hematocrit Auto (Bld) [Volum e fraction]Ordered By: Nestor Stauffer on 12-30-2024 Hematocrit (Bld) [Volume fraction] 36.5 % Low 40-54 [facility] Hemoglobin measurementOrdere d By: Nestor Stauffer on 12-30-2024 Hemoglobin (Bld) [Mass/Vol] 13.6 g/dL 13.0-16.5 [facility] Immature granulocytes/100 WB C Auto (Bld)Ordered By: Nestor Stauffer on 12-30-2024 Immature granulocytes/100 WBC (Bld) 0.500 % 0.0-0.9 [facility] Comment on above: IG% - Immature Granu locytes (promyelocytes, myelocytes and metamyelocytes) > 1% indicates that a LEFT SHIFT is Present. International normalized rat io (INR) calculationOrdered By: Nestor Stauffer on 12-30-2024 INR Coag (Bld) [Relative time] 1.0 {INR} [facility] Ketones Test strip Ql (U)Ord ered By: Nestor Stauffer on 12-30-2024 Ketones Ql (U) Negative Negative [facility] Laboratory - Chemistry and C hemistry - challengeOrdered By: Nestor Stauffer on 12-30-2024 AST [Catalytic activity/Vol] 57 U/L High <38 [facility] Lactic Acidon 12-30-2024 Lactate [Moles/Vol] mmol/L Normal 0.0-2.0 [facility] Comment on above: Order Comment: Y Performed By: #### L 3700.3000, L3310.0000, L506.0200, L500.4050, L501.7300, L501.9520, L503.6005, L501.5200 #### [facility] [address] [place], [address] Lactate [Moles/Vol] 1.4 mmol/L Normal 0.0-2.0 [facility] Comment on above: Performed By: #### L 503.0106 #### [facility] [address] [place], [address] Lactate [Moles/Vol] 5.1 mmol/L Invalid Interpretation Code 0.0-2.0 [facility] Comment on above: Order Comment: Y Result Comment: Crit ical Result(s) Called BEATRICE at: 1700 by: VICENTE??Results read back by same. Performed By: #### L 501.2300, L500.4100, L100.0100 #### [facility] [address] [place], [address] Lactic acid measurementOrder ed By: Nestor Stauffer on 12-30-2024 Lactate [Moles/Vol] 1.4 mmol/L 0.0-2.0 [facility] LevetiracetamOrdered By: Sonu Novak on 12-30-2024 levETIRAcetam [Mass/Vol] 18.4 ug/mL 10.0-40.0 [facility] MCV (mean corpuscular volume ) determinationOrdered By: Nestor Stauffer on 12-30-2024 MCV (RBC) [Entitic vol] 82.6 fL 80-94 [facility] Magnesium measurement (mass/ volume)Ordered By: Jorge Novak on 12-30-2024 Magnesium (Unsp spec) [Mass/Vol] 1.6 mg/dL 1.5-2.2 [facility] Mean corpuscular hemoglobin (MCH) determinationOrdered By: Nestor Stauffer on 12-30-2024 MCH (RBC) [Entitic mass] 30.8 pg 27.0-32.0 [facility] Mean corpuscular hemoglobin concentration (MCHC) determinationOrdered By: Nestor Stauffer on 12-30-2024 MCHC (RBC) [Mass/Vol] 37.3 g/dL High 32-36 [facility] Mean platelet volume determi nationOrdered By: Nestor Stauffer on 12-30-2024 Platelet mean volume (Bld) [Entitic vol] 8.8 fL 6.2-12.0 [facility] Microscopic analysis of urin e for red blood cells (RBC)Ordered By: Nestor Stauffer on 12-30-2024 Microscopic analysis of urine for red blood cells (RBC) 0-5 SEEN /hpf 0-5 [facility] Monocyte percentageOrdered B y: Nestor Staufefr on 12-30-2024 Monocytes/100 WBC (Bld) 10.5 % High 0-10 [facility] Mucus LM Ql (Urine sed)Order ed By: Nestor Stauffer on 12-30-2024 Mucus Ql (Urine sed) 0 SEEN /hpf [facility] Neutrophil percentageOrdered By: Nestor Stauffer on 12-30-2024 Neutrophils/100 WBC (Bld) 64.2 % 47-70 [facility] Nitrite Test strip Ql (U)Ord ered By: Nestor Stauffer on 12-30-2024 Nitrite Ql (U) Negative Negative [facility] No Panel InformationOrdered By: Jorge Novak on 12-30-2024 56 U/L High <38 [facility] YEIMI [facility] Not entered [facility] Room Air [facility] Nucleated red blood cell per centageOrdered By: Nestor Stauffer on 12-30-2024 Nucleated RBC/100 WBC (Bld) [Ratio] 0 % 0-5 [facility] Osmolality, Serumon 12-31-19 25 OSMOLALITY,SER 256 mOsm/KG Low 280-301 [facility] Comment on above: Performed By: #### L 3700.3000, L3310.0000, L506.0200, L500.4050, L501.7300, L501.9520, L503.6005, L501.5200 #### [facility] [address] [place], [address] Partial Thromboplast Timeon 12-30-2024 aPTT Coag (Bld) [Time] 23.2 s Low 24.1-36.2 [facility] Comment on above: Performed By: #### L 501.2300, L500.4100, L100.0100 #### [facility] [address] [place], [address] Platelet countOrdered By: Tye Stauffer on 12-30-2024 Platelets (Bld) [#/Vol] 287 10*3/uL 150-450 [facility] Potassium measurement (mass/ volume)Ordered By: Nestor Stauffer on 12-30-2024 Potassium (Unsp spec) [Mass/Vol] 4.1 mmol/L 3.3-5.1 [facility] Protein Test strip Ql (U)Ord ered By: Nestor Stauffer on 12-30-2024 Protein Ql (U) 30 mg/dl High Negative [facility] Prothrombin Time w/INRon INR Coag (PPP) [Relative time] 1.0 {INR} Normal [facility] Comment on above: Performed By: #### L 501.2300, L500.4100, L100.0100 #### [facility] [address] [place], [address] PT Coag (PPP) [Time] 13.3 s Normal 11.7-14.9 [facility] Comment on above: Performed By: #### L 501.2300, L500.4100, L100.0100 #### [facility] [address] [place], [address] Prothrombin timeOrdered By: Nestor Stauffer on 12-30-2024 PT Coag (PPP) [Time] 13.3 s 11.7-14.9 [facility] RBC Auto (Bld) [#/Vol]Ordere d By: Nestor Stauffer on 12-30-2024 RBC (Bld) [#/Vol] 4.42 10*6/uL Low 4.6-6.2 [facility] Serum creatinine measurement (mass/volume)Ordered By: Nestor Stauffer on 12-30-2024 Creatinine [Mass/Vol] 0.93 mg/dL 0.70-1.20 [facility] Serum globulin measurementOr dered By: Jorge Novak on 12-30-2024 Globulin (S) [Mass/Vol] 2.5 g/dL 2.2-4.2 [facility] Serum globulin measurementOr dered By: Nestor Stauffer on 12-30-2024 Globulin (S) [Mass/Vol] 2.4 g/dL 2.2-4.2 [facility] Serum glucose measurement (m ass/volume)Ordered By: Nestor Stauffer on 12-30-2024 Glucose [Mass/Vol] 105 mg/dL High 70-99 [facility] Serum or plasma alanine medrano otransferase (ALT) measurementOrdered By: Jorge Novak on 12-30-2024 ALT [Catalytic activity/Vol] 26 U/L <47 [facility] Serum or plasma alanine medrano otransferase (ALT) measurementOrdered By: Nestor Stauffer on 12-30-2024 ALT [Catalytic activity/Vol] 27 U/L <47 [facility] Serum or plasma albumin jung urement (mass/volume)Ordered By: Jorge Novak on 12-30-2024 Albumin [Mass/Vol] 4.1 g/dL 3.4-4.8 [facility] Serum or plasma albumin jung urement (mass/volume)Ordered By: Nestor Stauffer on 12-30-2024 Albumin [Mass/Vol] 4.5 g/dL 3.4-4.8 [facility] Serum or plasma albumin/glob ulin mass ratioOrdered By: Jorge Novak on 12-30-2024 Albumin/Globulin [Mass ratio] 1.6 {ratio} 0.9-2.4 [facility] Serum or plasma albumin/glob ulin mass ratioOrdered By: Nestor Stauffer on 12-30-2024 Albumin/Globulin [Mass ratio] 1.8 {ratio} 0.9-2.4 [facility] Serum or plasma alkaline ally sphatase measurementOrdered By: Jorge Novak on 12-30-2024 ALP [Catalytic activity/Vol] 74 U/L 40-129 [facility] Serum or plasma alkaline ally sphatase measurementOrdered By: Nestor Stauffer on 12-30-2024 ALP [Catalytic activity/Vol] 80 U/L 40-129 [facility] Serum or plasma calcium jung urement (mass/volume)Ordered By: Nestor Stauffer on 12-30-2024 Calcium [Mass/Vol] 9.2 mg/dL 7.6-11.0 [facility] Serum or plasma urea nitroge n measurement (mass/volume)Ordered By: Nestor Stauffer on 12-30-2024 Urea nitrogen [Mass/Vol] 12 mg/dL 4-19 [facility] Sodium levelOrdered By: Cisco Stauffer on 12-30-2024 Sodium [Moles/Vol] 119 mmol/L Critically low 133-145 [facility] Comment on above: Critical Result(s) Joe BARRON at: 1700 by: VICENTE Results read back by same. Spine Cervical without Contr ason 12-30-2024 Spine Cervical without Contras [facility] Imaging Services [address] [place], [place] [id number] Spine Cervical without Contras MR#: [id number] Acct: [id number] Name: NAYLA BENNETT Rep #: [id number] : 1955 M 69 From: Otilio Rudolph MD PCP: Dr. Eddi Lynn MD Status: REG ER Study: Spine Cervical without Contras Date of Exam: 1 Exam# [id number] Ordering Dr: Nestor Stauffer DO PROCEDURE: SPINE CERVICAL WITHOUT CONTRAS 12/30/2024 REASON FOR EXAM: FALL X 2 TECHNIQUE: Procedure Code: CTSPC Modality: CT Procedure: SPINE CERVICAL WITHOUT CONTRAS Coronal and Sagittal reconstruction series were provided. One or more dose reduction techniques were used (e.g., Automated exposure control, adjustment of the mA and/or kV according to patient size, use of iterative reconstruction technique. COMPARISON: None. FINDINGS: No evidence of acute fracture or dislocation. Moderate degenerative changes of the visualized spine. Normal alignment. Vertebral body heights are maintained. The lung apices are clear. CT/Spine Cervical without Contras IMPRESSION: No acute osseous abnormalities. Spondylosis. Reading Location: [address] CC: Dr. Eddi Lynn MD; Dr. 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 Normal [facility] Squamous epithelial cells de tection in urine sediment by light microscopyOrdered By: Nestor Stauffer on 12-30-2024 Epithelial cells.squamous LM Ql (Urine sed) 0 SEEN /hpf 0-5 [facility] TSH DL <= 0.005 mIU/L QnOrde red By: Jorge Novak on 12-30-2024 TSH Qn 2.890 uIU/mL 0.300-4.200 [facility] Total proteinOrdered By: Sonu Novak on 12-30-2024 Protein [Mass/Vol] 6.6 g/dL 5.9-8.4 [facility] Total proteinOrdered By: Ana Stauffer on 12-30-2024 Protein [Mass/Vol] 6.9 g/dL 5.9-8.4 [facility] Urinalysis, Completeon 12-30 RBC 0-5 SEEN Normal 0-5 [facility] Comment on above: Order Comment: Y Performed By: #### L 3700.3000, L3310.0000, L506.0200, L500.4050, L501.7300, L501.9520, L503.6005, L501.5200 #### [facility] [address] [place], [address] BACTERIA 0 SEEN Normal None Seen [facility] Comment on above: Order Comment: Y Performed By: #### L 3700.3000, L3310.0000, L506.0200, L500.4050, L501.7300, L501.9520, L503.6005, L501.5200 #### [facility] [address] [place], [address] EPI,SQUAMOUS 0 SEEN Normal 0-5 [facility] Comment on above: Order Comment: Y Performed By: #### L 3700.3000, L3310.0000, L506.0200, L500.4050, L501.7300, L501.9520, L503.6005, L501.5200 #### [facility] [address] [place], [address] Mucus Ql (Urine sed) 0 SEEN Normal [facility] Comment on above: Order Comment: Y Performed By: #### L 3700.3000, L3310.0000, L506.0200, L500.4050, L501.7300, L501.9520, L503.6005, L501.5200 #### [facility] [address] [place], [address] WBC 0 SEEN Normal 0-5 [facility] Comment on above: Order Comment: Y Performed By: #### L 3700.3000, L3310.0000, L506.0200, L500.4050, L501.7300, L501.9520, L503.6005, L501.5200 #### [facility] [address] [place], [place], [id number] Urine clarityOrdered By: Ana Stauffer on 12-30-2024 Clarity (U) Clear Clear [facility] Urine color determinationOrd ered By: Nestor Stauffer on 12-30-2024 Color (U) Yellow Yellow [facility] Urine cultureOrdered By: Ana Stauffer on 12-30-2024 Bacteria identified Cx Nom (U) Culture exhibits no growth. [facility] Bacteria identified Cx Nom (U) Culture exhibits no growth. [facility] Urine glucose detectionOrder ed By: Nestor Stauffer on 12-30-2024 Glucose Ql (U) 250 mg/dl High Normal [facility] Urine leukocyte esterase det ection by dipstickOrdered By: Nestor Stauffer on 12-30-2024 Leukocyte esterase Test strip Ql (U) Negative Negative [facility] Urine pHOrdered By: Nestor bajwa on 12-30-2024 pH (U) 6.0 [pH] 5.0 - 8.0 [facility] Urine sediment bacteria coun t by microscopy (number/high power field)Ordered By: Nestor Stauffer on 12-30-2024 Bacteria LM.HPF (Urine sed) [#/Area] 0 /[HPF] None Seen [facility] Urine specific gravity measu rementOrdered By: Nestor Stauffer on 12-30-2024 Specific gravity (U) [Rel density] 1.010 1.002-1.030 [facility] Urine urobilinogen measureme ntOrdered By: Nestor tSauffer on 12-30-2024 Urobilinogen Ql (U) Normal mg/dl Normal [facility] Venous Blood Gason 5 Blood Gas Type YEIMI Normal [facility] Comment on above: Performed By: #### L 501.2300, L500.4100, L100.0100 #### [facility] [address] [place], [place], [id number] CO2 [Moles/Vol] 25 mmol/L Normal 23-33 [facility] Comment on above: Performed By: #### L 501.2300, L500.4100, L100.0100 #### [facility] [address] [place], [address] HCO3 (Bld) [Moles/Vol] 24 mmol/L Normal 22-26 [facility] Comment on above: Performed By: #### L 501.2300, L500.4100, L100.0100 #### [facility] [address] [place], [address] O2 Delivery Dev Room Air Normal [facility] Comment on above: Performed By: #### L 501.2300, L500.4100, L100.0100 #### [facility] [address] [place], [address] SITE Not entered Normal [facility] Comment on above: Performed By: #### L 501.2300, L500.4100, L100.0100 #### [facility] [address] [place], [address] VBG BE 0 mmol/L Normal -1.0-3.5 [facility] Comment on above: Performed By: #### L 501.2300, L500.4100, L100.0100 #### [facility] [address] [place], [address] VBG pCO2 35.4 mmHg Low 41-51 [facility] Comment on above: Performed By: #### L 501.2300, L500.4100, L100.0100 #### [facility] [address] [place], [address] VBG pH 7.45 High 7.32-7.42 [facility] Comment on above: Performed By: #### L 501.2300, L500.4100, L100.0100 #### [facility] [address] [place], [address] VBG PO2 52 mmHg High 25-40 [facility] Comment on above: Performed By: #### L 501.2300, L500.4100, L100.0100 #### [facility] [address] [place], [address] VBG SO2 88 High 50-70 [facility] Comment on above: Performed By: #### L 501.2300, L500.4100, L100.0100 #### [facility] [address] [place], [address] Venous blood base excess chip surementOrdered By: Jorge Novak on 12-30-2024 Base excess Calc (BldV) [Moles/Vol] 0 mmol/L -1.0-3.5 [facility] Venous blood bicarbonate chip surementOrdered By: Jorge Novak on 12-30-2024 HCO3 (Bld) [Moles/Vol] 24 mmol/L 22-26 [facility] Venous blood pH measurementO rdered By: Jorge Novak on 12-30-2024 pH (BldV) 7.45 [pH] High 7.32-7.42 [facility] Venous blood partial pressur e of carbon dioxide measurementOrdered By: Jorge Novak on 12-30-2024 CO2 (BldV) [Partial pressure] 35.4 mm[Hg] Low 41-51 [facility] Venous blood partial pressur e of oxygen measurementOrdered By: Jorge Novak on 12-30-2024 Oxygen (BldV) [Partial pressure] 52 mm[Hg] High 25-40 [facility] Vitamin B12on 12-30-2024 Cobalamin (Vitamin B12) [Mass/Vol] 789 pg/mL Normal 180-914 [facility] Comment on above: Performed By: #### L 503.0106 #### [facility] [address] [place], [address] Vitamin B12 ser/plasOrdered By: Jorge Novak on 12-30-2024 Cobalamin (Vitamin B12) [Mass/Vol] 789 pg/mL 180-914 [facility] White blood cell (WBC) count Ordered By: Nestor Stauffer on 12-30-2024 WBC (Bld) [#/Vol] 12.9 10*3/uL High 4.4-11.0 [facility] White blood cell countOrdere d By: Nestor Stauffer on 12-30-2024 White blood cell count 0 SEEN /hpf 0-5 [facility] Urine Cultureon 12-26-2024 [facility] Order Date: 12/25/24 Order Info: 630-4 - CUUR Below infection level. Mixed Gram Positive Organisms Clive Count 1000-10,000 MIXC Mixed contaminants. Submit a new specimen if indicated. Normal [facility] Comment on above: Performed By: #### L 3700.3000, L3310.0000, L506.0200, L500.4050, L501.7300, L501.9520, L503.6005, L501.5200 #### [facility] [address] [place], [place], [id number] (178) Hemoglobin A1con 12-25-2024 HbA1c (Bld) [Mass fraction] 6.1 % High <=5.6 [facility] Comment on above: Result Comment: Norm al < 5.7 % Prediabetic 5.7 - 6.4 % Diabetic >or= 6.5 % Please note range changes. Performed By: #### L 501.080 #### [facility] [address] [place], [place], [phone] (616) Hemoglobin A1c percentageOrd ered By: Eddi Lynn on 12-25-2024 HbA1c (Bld) [Mass fraction] 6.1 % High <5.7 [facility] Comment on above: Normal < 5.7 % Predi abetic 5.7 - 6.4 % Diabetic >or= 6.5 % Please note range changes. TSH DL <= 0.005 mIU/L QnOrde red By: Eddi Lynn on 12-25-2024 TSH Qn 1.780 uIU/mL 0.300-4.200 [facility] Thyroid Stim Hormone (TSH)on 12-25-2024 TSH 1.780 uIU/mL Normal 0.300-4.200 [facility] Comment on above: Performed By: #### L 501.080 #### [facility] [address] [place], [address] Urine cultureOrdered By: Beckie Lynn on 12-25-2024 Bacteria identified Cx Nom (U) Positive Abnormal [facility] Bacteria identified Cx Nom (U) Positive Abnormal [facility] Emergency Department Summary on 12-22-2024 Emergency Department Summary [facility] Medical Records Department [address] [place] [address] Emergency Department Summary 12/22/24 MR#: [id number] Acct: [id number] Name: NAYLA BENNETT Rep #: [id number] : 1955 69 From: Chet Grover MD PCP: Dr. Eddi Lynn MD Status:REG ER Location: ED HPI History of Present Illness Chief Complaint: Hypertension Detail of Chief Complaint: Patient presents with elevated blood pressure. He repeats what is asked of Informant: other (Attendee from [facility]) Onset/Context/Timing Onset: Today (Apparently had elevated blood pressure readings at the facility.) Context: - (Unknown) Timing: - (Unknown) Quality: Blood pressure was elevated Current Severity: Mild Maximum Severity: Moderate Worsened by: Nothing Relieved by: Was not given anything Associated Symptoms Associated Symptoms: Unable to determine Narrative Narrative: Patient is a 69-year-old male. He does have a history of hypertension. He is presently on amlodipine 10 mg daily. He is on no other antihypertensive meds. He was seen 3 days ago. He had blood work at that time that revealed no evidence of endorgan dysfunction. Since he is not able to communicate no if he has any symptoms. Prior similar symptoms: No Recent Illness/Hospitalizat ion: Yes [facility] Medical History Developmental non-verbal disorder Vitamin B12 deficiency Epilepsy, unspecified, not intractable, without status epilepticus Schizophrenia Seizure disorder Hyperlipidemia HTN (hypertension) Diabetes mellitus, type II Home Medications ???Medication ???Instructions ???Recorded ???Last Taken ???Type loratadine 10 mg tablet 10 mg PO DAILY allergies 07/16/16 Unknown History omega 8-wmg-wyr-fish oil 300 1 ea PO BID 07/16/16 Unknown Histo ry mg-1,000 mg capsule risperidone 3 mg tablet 3 mg PO QHS 07/16/16 Unknown Histo ry atorvastatin 40 mg tablet 40 mg PO QHS 11/27/19 Unknown Hist ory metformin 1,000 mg tablet 1,000 mg PO BID 11/27/19 Unknown H istory fluticasone propionate 50 1 spray intranasal QHS 12/02/19 Un known History mcg/actuation nasal spray,suspension polyethylene glycol 3350 17 gram 17 g PO BID 12/02/19 Unknown Histo ry oral powder packet tamsulosin 0.4 mg capsule 0.4 mg PO DAILY 12/02/19 Unknown H istory levothyroxine 50 mcg tablet 50 mcg PO QDAY 11/28/23 Unknown Hi story cholecalciferol (vitamin D3) 1,250 1,250 mcg PO QMONTH #1 cap 05/28 Unknown Rx mcg (50,000 unit) capsule mecobalamin (vitamin B12) 1,000 1,000 mcg PO DAILY #30 tabs Unknown Rx mcg chewable tablet (B12 Active) chlorhexidine gluconate 0.12 % 15 ml buccal BID 11/26/24 Unknown History mouthwash olmesartan 40 mg tablet 40 mg PO QAM #30 tabs 11/26/24 Unk nown Rx phenobarbital 60 mg tablet 120 mg (2 x 60 mg) PO QHS #56 tabs 11/26/24 Unknown Rx amlodipine 10 mg tablet (Norvasc) 10 mg PO DAILY #30 tabs 12/19/24 Unknown Rx beta carotene 30 mg capsule 30 mg PO DAILY 12/22/24 Unknown Hi story hydrochlorothiazide 12.5 mg tablet 12.5 mg PO .QAM #30 tabs 5 Unknown Rx levetiracetam 1,000 mg tablet 1,000 mg PO BID 12/22/24 Unknown H istory Allergy/AdvReac Type Severity Reaction Status Date / Time No Known Allergies Allergy Verified 11/26/24 10:35 Surgical History No history of previous surgery Social History housing: other details: senior care Smoking Status: Never smoker Electronic Cigarette Use: not used second hand exposure: No alcohol intake: never substance use type: does not use seatbelt use: always ROS ROS ED Review of Systems ROS Unobtainable: due to mental status EXAM Physical Exam Const Vital Signs: 12/22/24 18:52 12/22/24 18:58 Temperature 97.8 F Temperature Source Oral Pulse Rate 82 Respiratory Rate 20 H Respiratory Effort Normal Respiratory Pattern Normal Blood Pressure 182/101 H Blood Pressure Mean 128 Pulse Ox 98 Oxygen Delivery Method Room Air Positive well nourished and well developed General Appearance ED: well developed, NAD and pallor; Negative for cyanotic or diaphoretic HEENT Reports moist mucous membranes HEENT Narrative: Head is atraumatic no cephalic. Ears normal. Nares patent. Posterior pharynx no erythema or exudate. Uvula midline. No deviation tongue protrusion. Eyes PERRL and EOMs intact bilaterally Eyes Narrative: There is no nystagmus. General Eye ED: Negative for pale conjunctiva or scleral icterus Neck no lymphadenopathy, supple and no JVD Chest Wall inspection of chest normal and palpation of chest normal Resp normal respiratory effort and clear to auscultation (more content not included)... Normal [facility] Absolute lymphocyte countOrd ered By: Lory Wolff on 12-19-2024 Lymphocytes Auto (Unsp spec) [#/Vol] 2.33 10*3/uL 0.83-4.51 [facility] Absolute neutrophil countOrd ered By: Lory Wolff on 12-19-2024 Neutrophils (Bld) [#/Vol] 6.8 10*3/uL 2.0-7.7 [facility] Anion gap in Serum or Plasma Ordered By: Lory Wolff on 12-19-2024 Anion gap [Moles/Vol] 14 mmol/L 5-15 [facility] Automated lymphocyte count a s percentage of total leukocytesOrdered By: Lory Wolff on 12-19-2024 Lymphocytes/100 WBC Auto (Unsp spec) 22.8 % -41 [facility] BUN/creatinine ratioOrdered By: Lory Wolff on 12-19-2024 Urea nitrogen/Creatinine [Mass ratio] 15.0 mg/mg 10-20 [facility] Comment on above: Previous reported re sult: 14.4 RATIOEdited by: AUTOINS on 12/19/24:1527 AMENDED REPORT 12/19/24 152 BUN/CRE previously reported as: 14.4 RATIO Basic Metabolic Profile (BMP )on 12-19-2024 BUN/CRE 15.0 RATIO Normal 10-20 [facility] Comment on above: Result Comment: AMENDED REPORT 12/19/241526 BUN/CRE previously reported as: 14.4 RATIO Performed By: #### L 3700.3000, L3310.0000, L506.0200, L500.4050, L501.7300, L501.9520, L503.6005, L501.5200 #### [facility] [address] [place], [address] Urea nitrogen [Mass/Vol] 12 mg/dL Normal 4-19 [facility] Comment on above: Performed By: #### L 3700.3000, L3310.0000, L506.0200, L500.4050, L501.7300, L501.9520, L503.6005, L501.5200 #### [facility] [address] [place], [place], [id number] Basophil percentageOrdered B y: Lory Wolff on 12-19-2024 Basophils/100 WBC (Bld) 0.7 % 0-1 [facility] Bilirubin Test strip Ql (U)O rdered By: Lory Wolff on 12-19-2024 Bilirubin Ql (U) Negative Negative [facility] Brain/Head without Contrasto n 12-19-2024 Brain/Head without Contrast [facility] Imaging Services [address] [place], [place] [address] Brain/Head without Contrast MR#: [id number] Acct: [id number] Name: TRAVISNAYLA MIROSLAVA Rep #: [id number] : 1955 M 69 From: Lindy Bettencourt MD PCP: Dr. Eddi Lynn MD Status: REG ER Study: Brain/Head without Contrast Date of Exam: 11/25 09/17 Exam# [id number] Ordering Dr: Lory Wolff DO PROCEDURE: BRAIN/HEAD WITHOUT CONTRAST 12/19/2024 REASON FOR EXAM: HYPERTENSION TECHNIQUE: Procedure Code: CTBR Modality: CT Procedure: BRAIN/HEAD WITHOUT CONTRAST Coronal and Sagittal reconstruction series were provided. One or more dose reduction techniques were used (e.g., Automated exposure control, adjustment of the mA and/or kV according to patient size, use of iterative reconstruction technique. RADIATION DOSE SUMMARY: CTDlvol: 47.06 mGy DLP: 943.26 mGycm COMPARISON: MRI BRAIN w/o + w/ Contrast, 12/24/2019. FINDINGS: BRAIN: No acute intraparenchymal hemorrhage. No mass lesion. No CT evidence for acute territorial infarct. No midline shift or extra-axial collection. Mild periventricular white matter low attenuation, likely microvascular ischemic changes. VENTRICLES: No hydrocephalus. ORBITS: Intraocular lens implants bilaterally. The orbits are otherwise unremarkable. SINUSES AND MASTOIDS: Bilateral maxillary sinus retention cysts/polyps again seen. Mild right sphenoid and bilateral ethmoid sinus mucosal thickening. The mastoid air cells are clear. SOFT TISSUES: No acute abnormality seen. BONES: No acute osseous abnormality seen. OTHER: Carotid siphon calcification bilaterally. Soft tissue density within the external auditory canals bilaterally, likely cerumen. CT/Brain/Head without Contrast IMPRESSION: No acute intracranial abnormality. Reading Location: [facility] CC: Dr. Eddi Lynn MD; Dr. 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, [address] Absolute Neut 6.8 X10 3/uL Normal 2.0-7.7 [facility] Comment on above: Performed By: #### L 3700.3000, L3310.0000, L506.0200, L500.4050, L501.7300, L501.9520, L503.6005, L501.5200 #### [facility] [address] [place], [address] Basophils/100 WBC (Bld) 0.7 % Normal 0-1 [facility] Comment on above: Performed By: #### L 3700.3000, L3310.0000, L506.0200, L500.4050, L501.7300, L501.9520, L503.6005, L501.5200 #### [facility] [address] [facility] [place], [address] Eosinophils/100 WBC (Bld) 1.1 % Normal 0-5 [facility] Comment on above: Performed By: #### L 3700.3000, L3310.0000, L506.0200, L500.4050, L501.7300, L501.9520, L503.6005, L501.5200 #### [facility] [address] [facility] [place], [address] Erythrocyte distribution width (RBC) [Ratio] 12.2 % Normal 11.6-14.6 [facility] Comment on above: Performed By: #### L 3700.3000, L3310.0000, L506.0200, L500.4050, L501.7300, L501.9520, L503.6005, L501.5200 #### [facility] [address] [place], [address] Hematocrit (Bld) [Volume fraction] 39.5 % Low 40-54 [facility] Comment on above: Performed By: #### L 3700.3000, L3310.0000, L506.0200, L500.4050, L501.7300, L501.9520, L503.6005, L501.5200 #### [facility] [address] [place], [address] Hemoglobin (Bld) [Mass/Vol] 13.6 g/dL Normal 13.0-16.5 [facility] Comment on above: Performed By: #### L 3700.3000, L3310.0000, L506.0200, L500.4050, L501.7300, L501.9520, L503.6005, L501.5200 #### [facility] [address] [place], [address] IG% 0.400 Normal 0.0-0.9 [facility] Comment on above: Result Comment: IG% - Immature Granulocytes (promyelocytes, myelocytes and metamyelocytes) > 1% indicates that a LEFT SHIFT is Present. Performed By: #### L 3700.3000, L3310.0000, L506.0200, L500.4050, L501.7300, L501.9520, L503.6005, L501.5200 #### [facility] [address] [place], [address] Lymphocytes/100 WBC (Bld) 22.8 % Normal 19-41 [facility] Comment on above: Performed By: #### L 3700.3000, L3310.0000, L506.0200, L500.4050, L501.7300, L501.9520, L503.6005, L501.5200 #### [facility] [address] [place], [address] MCH (RBC) [Entitic mass] 29.8 pg Normal 27.0-32.0 [facility] Comment on above: Performed By: #### L 3700.3000, L3310.0000, L506.0200, L500.4050, L501.7300, L501.9520, L503.6005, L501.5200 #### [facility] [address] [place], [address] MCHC (RBC) [Mass/Vol] 34.4 g/dL Normal 32-36 [facility] Comment on above: Performed By: #### L 3700.3000, L3310.0000, L506.0200, L500.4050, L501.7300, L501.9520, L503.6005, L501.5200 #### [facility] [address] [place], [address] MCV (RBC) [Entitic vol] 86.6 fL Normal 80-94 [facility] Comment on above: Performed By: #### L 3700.3000, L3310.0000, L506.0200, L500.4050, L501.7300, L501.9520, L503.6005, L501.5200 #### [facility] [address] [place], [address] Monocytes/100 WBC (Bld) 8.1 % Normal 0-10 [facility] Comment on above: Performed By: #### L 3700.3000, L3310.0000, L506.0200, L500.4050, L501.7300, L501.9520, L503.6005, L501.5200 #### [facility] [address] [place], [address] Neutrophils/100 WBC (Bld) 66.9 % Normal 47-70 [facility] Comment on above: Performed By: #### L 3700.3000, L3310.0000, L506.0200, L500.4050, L501.7300, L501.9520, L503.6005, L501.5200 #### [facility] [address] [place], [address] Nucleated RBC (Bld) [#/Vol] 0 10*3/uL Normal 0-5 [facility] Comment on above: Performed By: #### L 3700.3000, L3310.0000, L506.0200, L500.4050, L501.7300, L501.9520, L503.6005, L501.5200 #### [facility] [address] [place], [address] Platelet mean volume (Bld) [Entitic vol] 9.4 fL Normal 6.2-12.0 [facility] Comment on above: Performed By: #### L 3700.3000, L3310.0000, L506.0200, L500.4050, L501.7300, L501.9520, L503.6005, L501.5200 #### [facility] [address] [place], [address] Platelets (Bld) [#/Vol] 288 10*3/uL Normal 150-450 [facility] Comment on above: Performed By: #### L 3700.3000, L3310.0000, L506.0200, L500.4050, L501.7300, L501.9520, L503.6005, L501.5200 #### [facility] [address] [place], [address] RBC (Bld) [#/Vol] 4.56 10*6/uL Low 4.6-6.2 [facility] Comment on above: Performed By: #### L 3700.3000, L3310.0000, L506.0200, L500.4050, L501.7300, L501.9520, L503.6005, L501.5200 #### [facility] [address] [place], [address] RDW SD 38.7 fl Normal 35.1-43.9 [facility] Comment on above: Performed By: #### L 3700.3000, L3310.0000, L506.0200, L500.4050, L501.7300, L501.9520, L503.6005, L501.5200 #### [facility] [address] [place], [address] WBC (Bld) [#/Vol] 10.2 10*3/uL Normal 4.4-11.0 [facility] Comment on above: Performed By: #### L 3700.3000, L3310.0000, L506.0200, L500.4050, L501.7300, L501.9520, L503.6005, L501.5200 #### [facility] [address] [place], [address] Carbon dioxide, total [Moles /volume] in Central venous bloodOrdered By: Lory Wolff on 12-19-2024 CO2 [Moles/Vol] 22.4 mmol/L 21.0-32.0 [facility] Chloride assayOrdered By: Hollis Wolff on 12-19-2024 Chloride [Moles/Vol] 97 mmol/L Low 98-108 [facility] Emergency Department Summary on 12-19-2024 Emergency Department Summary [facility] Medical Records Department [address] [place] [address] Emergency Department Summary 12/19/24 MR#: [id number] Acct: [id number] Name: NAYLA BENNETT Rep #: [id number] : 1955 69 From: Lory Wolff DO PCP: Dr. Eddi Lynn MD Status:DEP ER Location: ED HPI History of Present Illness Chief Complaint: Hypertension Informant: mental health staff Narrative Narrative: Patient is a 69-year-old male with history of newly diagnosed hypertension, diabetes mellitus, schizophrenia and developmental delay (minimally verbal at baseline) presenting with elevated blood pressure. No acute complaints. Was not having elevated blood pressure last week (blood pressures 210/102 100/110.) workshop recommend he see his primary care doctor. He was started on Norvasc 5 mg. They have been checking his blood pressure daily until he follows up with his primary care doctor. His blood pressure was noted to be elevated today (180s) however he has been acting normally. No complaints. No report of any fevers, headaches, vomiting or change in urine output. Was sent in for recommendation primary care doctor for further evaluation. [facility] Medical History (Updated 12/19/24 @ 16:[address] Lory Wolff, DO) Developmental non-verbal disorder Vitamin B12 deficiency Epilepsy, unspecified, not intractable, without status epilepticus Schizophrenia Seizure disorder Hyperlipidemia HTN (hypertension) Diabetes mellitus, type II Home Medications ???Medication ???Instructions ???Recorded ???Last Taken ???Type loratadine 10 mg tablet 10 mg PO DAILY PRN allergies 07/16 Unknown History omega 0-isx-lnn-fish oil 300 1 ea PO BID 07/16/16 Unknown Histo ry mg-1,000 mg capsule risperidone 3 mg tablet 3 mg PO QHS 07/16/16 Unknown Histo ry atorvastatin 40 mg tablet 40 mg PO QHS 11/27/19 Unknown Hist ory metformin 1,000 mg tablet 1,000 mg PO BID 11/27/19 Unknown H istory fluticasone propionate 50 1 spray intranasal DAILY 12/02/19 Unknown History mcg/actuation nasal spray,suspension polyethylene glycol 3350 17 gram 17 g PO BID 12/02/19 Unknown Histo ry oral powder packet tamsulosin 0.4 mg capsule 0.4 mg PO DAILY 12/02/19 Unknown H istory levothyroxine 50 mcg tablet 50 mcg PO QDAY 11/28/23 Unknown Hi story cholecalciferol (vitamin D3) 1,250 1,250 mcg PO QMONTH #1 cap 05/28 Unknown Rx mcg (50,000 unit) capsule mecobalamin (vitamin B12) 1,000 1,000 mcg PO DAILY #30 tabs Unknown Rx mcg chewable tablet (B12 Active) chlorhexidine gluconate 0.12 % 15 ml buccal BID 11/26/24 Unknown History mouthwash levetiracetam 750 mg tablet 1,500 mg (2 x 750 mg) PO BID #120 11/26/24 Unknown Rx tabs olmesartan 40 mg tablet 40 mg PO QAM #30 tabs 11/26/24 Unk nown Rx phenobarbital 60 mg tablet 120 mg (2 x 60 mg) PO QHS #56 tabs 11/26/24 Unknown Rx amlodipine 10 mg tablet (Norvasc) 10 mg PO DAILY #30 tabs 12/19/24 Unknown Rx Allergy/AdvReac Type Severity Reaction Status Date / Time No Known Allergies Allergy Verified 11/26/24 10:35 Surgical History No history of previous surgery Social History housing: other details: senior care Smoking Status: Never smoker Electronic Cigarette Use: not used second hand exposure: No alcohol intake: never substance use type: does not use seatbelt use: always ROS ROS ED ROS Narrative Review systems limited secondary to patient's mental status at baseline, given by healthcare aide Constitutional Constitutional ED: Denies chills or fever(s) Respiratory/Chest Respiratory/Chest: Denies cough or dyspnea Gastrointestinal Gastrointestinal: Denies vomiting Neurologic Neurologic: Denies headache(s) or weakness Hematologic/Lymphati c Hematologic/Lymphati c: Denies easy bleeding or easy bruising EXAM Physical Exam Const Vital Signs: 12/19/24 15:44 12/19/24 16:28 Temperature 97.5 F L Pulse Rate 74 77 Respiratory Rate 18 14 Blood Pressure 179/81 H 167/84 H Blood Pressure Mean 113 111 Pulse Ox 97 96 Oxygen Delivery Method Room Air Positive well nourished and well developed General Appearance ED: well developed and NAD HEENT Reports moist mucous membranes Eyes PERRL Neck supple and no JVD Chest Wall inspection of chest normal Resp normal respiratory effort and clear to auscultation bilaterally Cardio regular rate and regular rhythm GI normal to inspection, nondistended, normoactive bowel sounds and non-tender Auscultation: normoactive bowel sounds Palpation: soft; Negative for tender or guarding Extremity General Extremety ED: Negative for edema General Extremity: Negative for edema Neuro CN's II-XII (more content not included)... Normal [facility] Eosinophil percentageOrdered By: Lory Wolff on 12-19-2024 Eosinophils/100 WBC (Bld) 1.1 % 0-5 [facility] Erythrocyte distribution wid th ratioOrdered By: Lory Wolff on 12-19-2024 Erythrocyte distribution width (RBC) [Ratio] 12.2 % 11.6-14.6 [facility] Erythrocyte distribution wid th standard deviationOrdered By: Lory Wolff on 12-19-2024 Erythrocyte distribution width (RBC) [Ratio] 38.7 fl 35.1-43.9 [facility] Glomerular filtration rate ( GFR) estimation/1.73 sq m using serum, plasma, or whole bOrdered By: Lory Wolff on 12-19-2024 GFR/1.73 sq M.predicted among non-blacks MDRD (S/P/Bld) [Vol rate/Area] 95 mL/min/{1.73_m2} >60 [facility] Comment on above: mL/min/1.73m2 CKD-EP I Creatinine Equation (2020) Hematocrit Auto (Bld) [Volum e fraction]Ordered By: Lory Wolff on 12-19-2024 Hematocrit (Bld) [Volume fraction] 39.5 % Low 40-54 [facility] Hemoglobin measurementOrdere d By: Lory Wolff on 12-19-2024 Hemoglobin (Bld) [Mass/Vol] 13.6 g/dL 13.0-16.5 [facility] Immature granulocytes/100 WB C Auto (Bld)Ordered By: Lory Wolff on 12-19-2024 Immature granulocytes/100 WBC (Bld) 0.400 % 0.0-0.9 [facility] Comment on above: IG% - Immature Granu locytes (promyelocytes, myelocytes and metamyelocytes) > 1% indicates that a LEFT SHIFT is Present. Ketones Test strip Ql (U)Ord ered By: Lory Wolff on 12-19-2024 Ketones Ql (U) Negative Negative [facility] MCV (mean corpuscular volume ) determinationOrdered By: Lory Wolff on 12-19-2024 MCV (RBC) [Entitic vol] 86.6 fL 80-94 [facility] Mean corpuscular hemoglobin (MCH) determinationOrdered By: Lory Wolff on 12-19-2024 MCH (RBC) [Entitic mass] 29.8 pg 27.0-32.0 [facility] Mean corpuscular hemoglobin concentration (MCHC) determinationOrdered By: Lory Wolff on 12-19-2024 MCHC (RBC) [Mass/Vol] 34.4 g/dL 32-36 [facility] Mean platelet volume determi nationOrdered By: Lory Wolff on 12-19-2024 Platelet mean volume (Bld) [Entitic vol] 9.4 fL 6.2-12.0 [facility] Microscopic analysis of urin e for red blood cells (RBC)Ordered By: Lory Wolff on 12-19-2024 Microscopic analysis of urine for red blood cells (RBC) 0-5 SEEN /hpf 0-5 [facility] Monocyte percentageOrdered B y: Lory Wolff on 12-19-2024 Monocytes/100 WBC (Bld) 8.1 % 0-10 [facility] Mucus LM Ql (Urine sed)Order ed By: Lory Wolff on 12-19-2024 Mucus Ql (Urine sed) 0 SEEN /hpf [facility] Neutrophil percentageOrdered By: Lory Wolff on 12-19-2024 Neutrophils/100 WBC (Bld) 66.9 % 47-70 [facility] Nitrite Test strip Ql (U)Ord ered By: Lory Wolff on 12-19-2024 Nitrite Ql (U) Negative Negative [facility] Nucleated red blood cell per centageOrdered By: Lory Wolff on 12-19-2024 Nucleated RBC/100 WBC (Bld) [Ratio] 0 % 0-5 [facility] Platelet countOrdered By: Hollis Wolff on 12-19-2024 Platelets (Bld) [#/Vol] 288 10*3/uL 150-450 [facility] Potassium measurement (mass/ volume)Ordered By: Lory Wolff on 12-19-2024 Potassium (Unsp spec) [Mass/Vol] 4.2 mmol/L 3.3-5.1 [facility] Protein Test strip Ql (U)Ord ered By: Lory Wolff on 12-19-2024 Protein Ql (U) Negative Negative [facility] RBC Auto (Bld) [#/Vol]Ordere d By: Lory Wolff on 12-19-2024 RBC (Bld) [#/Vol] 4.56 10*6/uL Low 4.6-6.2 [facility] Serum creatinine measurement (mass/volume)Ordered By: Lory Wolff on 12-19-2024 Creatinine [Mass/Vol] 0.81 mg/dL 0.70-1.20 [facility] Serum glucose measurement (m ass/volume)Ordered By: Lory Wolff on 12-19-2024 Glucose [Mass/Vol] 197 mg/dL High 70-99 [facility] Serum or plasma calcium jung urement (mass/volume)Ordered By: Lory Wolff on 12-19-2024 Calcium [Mass/Vol] 8.8 mg/dL 7.6-11.0 [facility] Serum or plasma urea nitroge n measurement (mass/volume)Ordered By: Lory Wolff on 12-19-2024 Urea nitrogen [Mass/Vol] 12 mg/dL 4-19 [facility] Sodium levelOrdered By: Rafiq Wolff on 12-19-2024 Sodium [Moles/Vol] 133 mmol/L 133-145 [facility] Squamous epithelial cells de tection in urine sediment by light microscopyOrdered By: Lory Wolff on 12-19-2024 Epithelial cells.squamous LM Ql (Urine sed) 0-5 SEEN /hpf 0-5 [facility] Urinalysis, Completeon 12-19 EPI,SQUAMOUS 0-5 SEEN Normal 0-5 [facility] Comment on above: Order Comment: CLEAN CATCH Performed By: #### L 501.2300, L500.4100, L100.0100 #### [facility] [address] [place], [address] RBC 0-5 SEEN Normal 0-5 [facility] Comment on above: Order Comment: CLEAN CATCH Performed By: #### L 501.2300, L500.4100, L100.0100 #### [facility] [address] [place], [address] WBC 0-5 SEEN Normal 0-5 [facility] Comment on above: Order Comment: CLEAN CATCH Performed By: #### L 501.2300, L500.4100, L100.0100 #### [facility] [address] [place], [address] BACTERIA 0 SEEN Normal None Seen [facility] Comment on above: Order Comment: CLEAN CATCH Performed By: #### L 501.2300, L500.4100, L100.0100 #### [facility] [address] [place], [address] Mucus Ql (Urine sed) 0 SEEN Normal [facility] Comment on above: Order Comment: CLEAN CATCH Performed By: #### L 501.2300, L500.4100, L100.0100 #### [facility] [address] [place], [address] Urine clarityOrdered By: Shantel Wolff on 12-19-2024 Clarity (U) Clear Clear [facility] Urine color determinationOrd ered By: Lory Wolff on 12-19-2024 Color (U) Straw Yellow [facility] Urine glucose detectionOrder ed By: Lory Wolff on 12-19-2024 Glucose Ql (U) 250 mg/dl High Normal [facility] Urine leukocyte esterase det ection by dipstickOrdered By: Lory Wolff on 12-19-2024 Leukocyte esterase Test strip Ql (U) Negative Negative [facility] Urine pHOrdered By: Lory story on 12-19-2024 pH (U) 6.5 [pH] 5.0 - 8.0 [facility] Urine sediment bacteria coun t by microscopy (number/high power field)Ordered By: Lory Wolff on 12-19-2024 Bacteria LM.HPF (Urine sed) [#/Area] 0 /[HPF] None Seen [facility] Urine specific gravity measu rementOrdered By: Lory Wolff on 12-19-2024 Specific gravity (U) [Rel density] 1.010 1.002-1.030 [facility] Urine urobilinogen measureme ntOrdered By: Lory Wolff on 12-19-2024 Urobilinogen Ql (U) Normal mg/dl Normal [facility] White blood cell (WBC) count Ordered By: Lory Wolff on 12-19-2024 WBC (Bld) [#/Vol] 10.2 10*3/uL 4.4-11.0 [facility] White blood cell countOrdere d By: Lory Wolff on 12-19-2024 White blood cell count 0-5 SEEN /hpf 0-5 [facility] Neurology Visit Reporton Neurology Visit Report [facility] [address] [facility], [address] [place] [address] OFFICE VISIT Date of Service: 11/26/24 MR#: [id number] Acct: [id number] Name: NAYLA BENNETT Rep #: [id number] : 1955 Provider: Dr. Vini scott MD Age/Sex: 69/M [place] [facility] [place] Status: Signed HPI [facility] Chief Complaint: Details: Interim History: Nayla returns for follow-up visit. He is accompanied by a caregiver from his [facility]. He has a history of diabetes mellitus, [...] insufficiency: S (more content not included)... Normal [facility] PROLACTIN 4465on 10-16-2024 PROLACTIN 27.6 ng/mL High 3.6-25.2 [facility] Comment on above: Result Comment: Perf ormed at: CB - [facility] [address] [id number] News Videographer: Pacheco Campos PhD, Phone: [phone] Performed By: #### L 316.6826, B295.9541, K425.7898 #### [facility] [address] [place], [address] Bilirubin Test strip Ql (U)O rdered By: Aydee Willams on 10-15-2024 Bilirubin Ql (U) Negative Negative [facility] Ketones Test strip Ql (U)Ord ered By: Aydee Willams on 10-15-2024 Ketones Ql (U) Negative Negative [facility] Nitrite Test strip Ql (U)Ord ered By: Aydee Willams on 10-15-2024 Nitrite Ql (U) Negative Negative [facility] Protein Test strip Ql (U)Ord ered By: Aydee Willams on 10-15-2024 Protein Ql (U) 15 mg/dl High Negative [facility] Serum or plasma prolactin me asurement (mass/volume)Ordered By: Aydee Willams on 10-15-2024 Prolactin [Mass/Vol] 27.6 ng/mL High 3.6-25.2 [facility] Comment on above: Performed at: [place] [id number] Director: Pacheco Campos PhD, Phone: [phone] Urinalysis, Routine (Dipstic k)on 10-15-2024 BILIRUBIN URINE Negative Normal Negative [facility] Comment on above: Order Comment: CLEAN CATCH Performed By: #### L 501.2300, L500.4100, L100.0100 #### [facility] [address] [place], [place], [id number] Clarity (U) Clear Normal Clear [facility] Comment on above: Order Comment: CLEAN CATCH Performed By: #### L 501.2300, L500.4100, L100.0100 #### [facility] [address] [place], [address] Color (U) Yellow Normal Yellow [facility] Comment on above: Order Comment: CLEAN CATCH Performed By: #### L 501.2300, L500.4100, L100.0100 #### [facility] [address] [place], [place], [id number] GLUCOSE, UR Normal Normal Normal [facility] Comment on above: Order Comment: CLEAN CATCH Performed By: #### L 501.2300, L500.4100, L100.0100 #### [facility] [address] [place], [address] KETONE UR Negative Normal Negative [facility] Comment on above: Order Comment: CLEAN CATCH Performed By: #### L 501.2300, L500.4100, L100.0100 #### [facility] [address] [place], [address] LEUK ESTERASE Negative Normal Negative [facility] Comment on above: Order Comment: CLEAN CATCH Performed By: #### L 501.2300, L500.4100, L100.0100 #### [facility] [address] [place], [address] Nitrite Ql (U) Negative Normal Negative [facility] Comment on above: Order Comment: CLEAN CATCH Performed By: #### L 501.2300, L500.4100, L100.0100 #### [facility] [address] [place], [address] OCCULT BLOOD-UR Negative Normal Negative [facility] Comment on above: Order Comment: CLEAN CATCH Performed By: #### L 501.2300, L500.4100, L100.0100 #### [facility] [address] [place], [address] pH UR 7.0 Normal 5.0 - 8.0 [facility] Comment on above: Order Comment: CLEAN CATCH Performed By: #### L 501.2300, L500.4100, L100.0100 #### [facility] [address] [place], [address] PROT DIPSTX 15 mg/dl Abnormal Negative [facility] Comment on above: Order Comment: CLEAN CATCH Performed By: #### L 501.2300, L500.4100, L100.0100 #### [facility] [address] [place], [address] SP.GR. DIPSTX 1.010 Normal 1.002-1.030 [facility] Comment on above: Order Comment: CLEAN CATCH Performed By: #### L 501.2300, L500.4100, L100.0100 #### [facility] [address] [place], [address] UROBILI Normal Normal Normal [facility] Comment on above: Order Comment: CLEAN CATCH Performed By: #### L 501.2300, L500.4100, L100.0100 #### [facility] [address] [place], [address] Urine clarityOrdered By: Samanta Willams on 10-15-2024 Clarity (U) Clear Clear [facility] Urine color determinationOrd ered By: Aydee Willams on 10-15-2024 Color (U) Yellow Yellow [facility] Urine glucose detectionOrder ed By: Aydee Willams on 10-15-2024 Glucose Ql (U) Normal mg/dl Normal [facility] Urine leukocyte esterase det ection by dipstickOrdered By: Aydee Willams on 10-15-2024 Leukocyte esterase Test strip Ql (U) Negative Negative [facility] Urine pHOrdered By: Aydee Willams on 10-15-2024 pH (U) 7.0 [pH] 5.0 - 8.0 [facility] Urine specific gravity measu rementOrdered By: Aydee Willams on 10-15-2024 Specific gravity (U) [Rel density] 1.010 1.002-1.030 [facility] Urine urobilinogen measureme ntOrdered By: Aydee Willams on 10-15-2024 Urobilinogen Ql (U) Normal mg/dl Normal [facility] Hemoglobin A1con 07-15-2024 HbA1c (Bld) [Mass fraction] 6.3 % High <=5.6 [facility] Comment on above: Order Comment: Order Date: 07/10/24Order Info: 4548-4 - A1C Result Comment: Norm al < 5.7 % Prediabetic 5.7 - 6.4 % Diabetic >or= 6.5 % Please note range changes. Performed By: #### L 503.0106 #### [facility] [address] [place], [place], [address] Hemoglobin A1c percentageOrd ered By: Eddi Lynn on 07-15-2024 HbA1c (Bld) [Mass fraction] 6.3 % High <5.7 [facility] Comment on above: Normal < 5.7 % Predi abetic 5.7 - 6.4 % Diabetic >or= 6.5 % Please note range changes. TSH DL <= 0.005 mIU/L QnOrde red By: Eddi Lynn on 07-15-2024 TSH Qn 2.660 uIU/mL 0.300-4.200 [facility] Thyroid Stim Hormone (TSH)on 07-15-2024 TSH 2.660 uIU/mL Normal 0.300-4.200 [facility] Comment on above: Order Comment: Order Date: 07/10/24Order Info: 3016-3 - TSH Performed By: #### L 501.2300, L500.4100, L100.0100 #### [facility] [address] [place], [place], [id number] KEPPRA (LEVETIRACETAM)on KEPPRA 27.6 ug/mL Normal 10.0-40.0 [facility] Comment on above: Result Comment: Perf ormed at: [facility] [address] [id number] News Videographer: Pacheco Campos PhD, Phone: [phone] Performed at: [facility] [address] [id number] News Videographer: Vickey Romeo MD, Phone: [phone] Performed By: #### L 3700.3000, L3310.0000, L506.0200, L500.4050, L501.7300, L501.9520, L503.6005, L501.5200 #### [facility] [address] [place], [place], [address] L3700.3000on 06-20-2024 PHENobarbital [Mass/Vol] 18 ug/mL Normal 15-40 [facility] Comment on above: Result Comment: Dete ction Limit = 3 Performed By: #### L 3700.3000, L3310.0000, L506.0200, L500.4050, L501.7300, L501.9520, L503.6005, L501.5200 #### [facility] [address] [place], [address] (242) Ammoniaon 06-18-2024 Ammonia (P) [Moles/Vol] 16.1 umol/L Normal 16-60 [facility] Comment on above: Performed By: #### L 3700.3000, L3310.0000, L506.0200, L500.4050, L501.7300, L501.9520, L503.6005, L501.5200 #### [facility] [address] [place], [address] Anion gap in Serum or Plasma Ordered By: Vini Feliciano on 06-18-2024 Anion gap [Moles/Vol] 12 mmol/L 5-15 [facility] BUN/creatinine ratioOrdered By: Vini Feliciano on 06-18-2024 Urea nitrogen/Creatinine [Mass ratio] 17.6 mg/mg 10-20 [facility] Bilirubin, totalOrdered By: Vini Feliciano on 06-18-2024 Bilirubin [Mass/Vol] 0.21 mg/dL 0.00-1.30 [facility] CBC-Complete Blood Cnt No Di ffon 06-18-2024 Erythrocyte distribution width (RBC) [Ratio] 12.3 % Normal 11.6-14.6 [facility] Comment on above: Performed By: #### L 3700.3000, L3310.0000, L506.0200, L500.4050, L501.7300, L501.9520, L503.6005, L501.5200 #### [facility] [address] [place], [address] Hematocrit (Bld) [Volume fraction] 42.2 % Normal 40-54 [facility] Comment on above: Performed By: #### L 3700.3000, L3310.0000, L506.0200, L500.4050, L501.7300, L501.9520, L503.6005, L501.5200 #### [facility] [address] [place], [address] Hemoglobin (Bld) [Mass/Vol] 14.5 g/dL Normal 13.0-16.5 [facility] Comment on above: Performed By: #### L 3700.3000, L3310.0000, L506.0200, L500.4050, L501.7300, L501.9520, L503.6005, L501.5200 #### [facility] [address] [facility] [place], [address] MCH (RBC) [Entitic mass] 30.1 pg Normal 27.0-32.0 [facility] Comment on above: Performed By: #### L 3700.3000, L3310.0000, L506.0200, L500.4050, L501.7300, L501.9520, L503.6005, L501.5200 #### [facility] [address] [facility] [place], [address] MCHC (RBC) [Mass/Vol] 34.4 g/dL Normal 32-36 [facility] Comment on above: Performed By: #### L 3700.3000, L3310.0000, L506.0200, L500.4050, L501.7300, L501.9520, L503.6005, L501.5200 #### [facility] [address] [facility] [place], [address] MCV (RBC) [Entitic vol] 87.7 fL Normal 80-94 [facility] Comment on above: Performed By: #### L 3700.3000, L3310.0000, L506.0200, L500.4050, L501.7300, L501.9520, L503.6005, L501.5200 #### [facility] [address] [place], [address] Platelet mean volume (Bld) [Entitic vol] 10.0 fL Normal 6.2-12.0 [facility] Comment on above: Performed By: #### L 3700.3000, L3310.0000, L506.0200, L500.4050, L501.7300, L501.9520, L503.6005, L501.5200 #### [facility] [address] [place], [address] Platelets (Bld) [#/Vol] 266 10*3/uL Normal 150-450 [facility] Comment on above: Performed By: #### L 3700.3000, L3310.0000, L506.0200, L500.4050, L501.7300, L501.9520, L503.6005, L501.5200 #### [facility] [address] [place], [address] RBC (Bld) [#/Vol] 4.81 10*6/uL Normal 4.6-6.2 [facility] Comment on above: Performed By: #### L 3700.3000, L3310.0000, L506.0200, L500.4050, L501.7300, L501.9520, L503.6005, L501.5200 #### [facility] [address] [place], [address] RDW SD 39.8 fl Normal 35.1-43.9 [facility] Comment on above: Performed By: #### L 3700.3000, L3310.0000, L506.0200, L500.4050, L501.7300, L501.9520, L503.6005, L501.5200 #### [facility] [address] [place], [address] WBC (Bld) [#/Vol] 6.4 10*3/uL Normal 4.4-11.0 [facility] Comment on above: Performed By: #### L 3700.3000, L3310.0000, L506.0200, L500.4050, L501.7300, L501.9520, L503.6005, L501.5200 #### [facility] [address] [place], [address] Carbon dioxide, total [Moles /volume] in Central venous bloodOrdered By: Vini Feliciano on 06-18-2024 CO2 [Moles/Vol] 27.3 mmol/L 21.0-32.0 [facility] Chloride assayOrdered By: Ra bere Feliciano on 06-18-2024 Chloride [Moles/Vol] 98 mmol/L 98-108 [facility] Comprehensive Metabolic Prof ilon 06-18-2024 Albumin [Mass/Vol] 4.0 g/dL Normal 3.4-4.8 [facility] Comment on above: Performed By: #### L 3700.3000, L3310.0000, L506.0200, L500.4050, L501.7300, L501.9520, L503.6005, L501.5200 #### [facility] [address] [place], [address] Albumin/Globulin [Mass ratio] 1.3 {ratio} Normal 0.9-2.4 [facility] Comment on above: Performed By: #### L 3700.3000, L3310.0000, L506.0200, L500.4050, L501.7300, L501.9520, L503.6005, L501.5200 #### [facility] [address] [place], [address] ALK PHOS 91 U/L Normal 40-129 [facility] Comment on above: Performed By: #### L 3700.3000, L3310.0000, L506.0200, L500.4050, L501.7300, L501.9520, L503.6005, L501.5200 #### [facility] [address] [place], [address] ALT [Catalytic activity/Vol] 31 U/L Normal <=46 [facility] Comment on above: Performed By: #### L 3700.3000, L3310.0000, L506.0200, L500.4050, L501.7300, L501.9520, L503.6005, L501.5200 #### [facility] [address] [place], [address] AST [Catalytic activity/Vol] 47 U/L High <=37 [facility] Comment on above: Performed By: #### L 3700.3000, L3310.0000, L506.0200, L500.4050, L501.7300, L501.9520, L503.6005, L501.5200 #### [facility] [address] [place], [address] Bilirubin [Mass/Vol] 0.21 mg/dL Normal 0.00-1.30 [facility] Comment on above: Performed By: #### L 3700.3000, L3310.0000, L506.0200, L500.4050, L501.7300, L501.9520, L503.6005, L501.5200 #### [facility] [address] [place], [address] BUN/CRE 17.6 RATIO Normal 10-20 [facility] Comment on above: Performed By: #### L 3700.3000, L3310.0000, L506.0200, L500.4050, L501.7300, L501.9520, L503.6005, L501.5200 #### [facility] [address] [place], [address] Calcium [Mass/Vol] 9.4 mg/dL Normal 7.6-11.0 [facility] Comment on above: Performed By: #### L 3700.3000, L3310.0000, L506.0200, L500.4050, L501.7300, L501.9520, L503.6005, L501.5200 #### [facility] [address] [place], [address] Chloride [Moles/Vol] 98 mmol/L Normal 98-108 [facility] Comment on above: Performed By: #### L 3700.3000, L3310.0000, L506.0200, L500.4050, L501.7300, L501.9520, L503.6005, L501.5200 #### [facility] [address] [place], [address] CO2 [Moles/Vol] 27.3 mmol/L Normal 21.0-32.0 [facility] Comment on above: Performed By: #### L 3700.3000, L3310.0000, L506.0200, L500.4050, L501.7300, L501.9520, L503.6005, L501.5200 #### [facility] [address] [place], [address] Creatinine [Mass/Vol] 0.91 mg/dL Normal 0.70-1.20 [facility] Comment on above: Performed By: #### L 3700.3000, L3310.0000, L506.0200, L500.4050, L501.7300, L501.9520, L503.6005, L501.5200 #### [facility] [address] [place], [address] GAP 12 Normal 5-15 [facility] Comment on above: Performed By: #### L 3700.3000, L3310.0000, L506.0200, L500.4050, L501.7300, L501.9520, L503.6005, L501.5200 #### [facility] [address] [place], [address] GFR/1.73 sq M.predicted among non-blacks MDRD (S/P/Bld) [Vol rate/Area] 90 mL/min/{1.73_m2} Normal >60 [facility] Comment on above: Result Comment: mL/m in/1.73m2 CKD-EPI Creatinine Equation (2020) Performed By: #### L 3700.3000, L3310.0000, L506.0200, L500.4050, L501.7300, L501.9520, L503.6005, L501.5200 #### [facility] [address] [place], [address] Globulin (S) [Mass/Vol] 3.0 g/dL Normal 2.2-4.2 [facility] Comment on above: Performed By: #### L 3700.3000, L3310.0000, L506.0200, L500.4050, L501.7300, L501.9520, L503.6005, L501.5200 #### [facility] [address] [place], [address] Glucose [Mass/Vol] 119 mg/dL High 70-99 [facility] Comment on above: Performed By: #### L 3700.3000, L3310.0000, L506.0200, L500.4050, L501.7300, L501.9520, L503.6005, L501.5200 #### [facility] [address] [place], [address] Potassium [Moles/Vol] 4.4 mmol/L Normal 3.3-5.1 [facility] Comment on above: Performed By: #### L 3700.3000, L3310.0000, L506.0200, L500.4050, L501.7300, L501.9520, L503.6005, L501.5200 #### [facility] [address] [place], [place], [address] Sodium [Moles/Vol] 138 mmol/L Normal 133-145 [facility] Comment on above: Performed By: #### L 3700.3000, L3310.0000, L506.0200, L500.4050, L501.7300, L501.9520, L503.6005, L501.5200 #### [facility] [address] [place], [place], [id number] (465) T PROT 7.0 g/dL Normal 5.9-8.4 [facility] Comment on above: Performed By: #### L 3700.3000, L3310.0000, L506.0200, L500.4050, L501.7300, L501.9520, L503.6005, L501.5200 #### [facility] [address] [place], [place], [id number] Urea nitrogen [Mass/Vol] 16 mg/dL Normal 4-19 [facility] Comment on above: Performed By: #### L 3700.3000, L3310.0000, L506.0200, L500.4050, L501.7300, L501.9520, L503.6005, L501.5200 #### [facility] [address] [place], [place], [id number] Erythrocyte distribution wid th ratioOrdered By: Vini Feliciano on 06-18-2024 Erythrocyte distribution width (RBC) [Ratio] 12.3 % 11.6-14.6 [facility] Erythrocyte distribution wid th standard deviationOrdered By: Vini Feliciano on 06-18-2024 Erythrocyte distribution width (RBC) [Entitic vol] 39.8 fL 35.1-43.9 [facility] GFR/1.73 sq M.predicted rahel g non-blacks MDRD (S/P/Bld) [Vol rate/Area]Ordered By: Vini Feliciano on 06-18-2024 Estimated GFR (MDRD) Non-Af Amer 90 >60 [facility] Comment on above: mL/min/1.73m2 CKD-EP I Creatinine Equation (2020) Hematocrit Auto (Bld) [Volum e fraction]Ordered By: Vini Feliciano on 06-18-2024 Hematocrit (Bld) [Volume fraction] 42.2 % 40-54 [facility] Hemoglobin measurementOrdere d By: Vini Feliciano on 06-18-2024 Hemoglobin (Bld) [Mass/Vol] 14.5 g/dL 13.0-16.5 [facility] - Chemistry and C hemistry - challengeOrdered By: Vini Feliciano on 06-18-2024 AST [Catalytic activity/Vol] 47 U/L High <38 [facility] LevetiracetamOrdered By: Yahir Feliciano on 06-18-2024 Levetiracetam (Keppra) Level 27.6 ug/mL 10.0-40.0 [facility] Comment on above: Performed at: [address] [id number] Director: Pacheco Campos PhD, Phone: [phone] at: [facility] [address] [id number] Director: Vickey Romeo MD, Phone: [phone] MCV (mean corpuscular volume ) determinationOrdered By: Vini Feliciano on 06-18-2024 MCV (RBC) [Entitic vol] 87.7 fL 80-94 [facility] Mean corpuscular hemoglobin (MCH) determinationOrdered By: Vini Feliciano on 06-18-2024 MCH (RBC) [Entitic mass] 30.1 pg 27.0-32.0 [facility] Mean corpuscular hemoglobin concentration (MCHC) determinationOrdered By: Vini Feliciano on 06-18-2024 MCHC (RBC) [Mass/Vol] 34.4 g/dL 32-36 [facility] Mean platelet volume determi nationOrdered By: Vini Feliciano on 06-18-2024 Platelet mean volume (Bld) [Entitic vol] 10.0 fL 6.2-12.0 [facility] Platelet countOrdered By: Ra bere Feliciano on 06-18-2024 Platelets (Bld) [#/Vol] 266 10*3/uL 150-450 [facility] Potassium (Unsp spec) [Mass/ Vol]Ordered By: Vini Feliciano on 06-18-2024 Potassium [Moles/Vol] 4.4 mmol/L 3.3-5.1 [facility] Quantitative phenobarbital m easurementOrdered By: Vini Feliciano on 06-18-2024 Phenobarbital Level 18 ug/mL 15-40 [facility] Comment on above: Detection Limit = 3 RBC Auto (Bld) [#/Vol]Ordere d By: Vini Feliciano on 06-18-2024 RBC (Bld) [#/Vol] 4.81 10*6/uL 4.6-6.2 [facility] Serum creatinine measurement (mass/volume)Ordered By: Vini Feliciano on 06-18-2024 Creatinine [Mass/Vol] 0.91 mg/dL 0.70-1.20 [facility] Serum globulin measurementOr dered By: Vini Feliciano on 06-18-2024 Globulin (S) [Mass/Vol] 3.0 g/dL 2.2-4.2 [facility] Serum glucose measurement (m ass/volume)Ordered By: Vini Feliciano on 06-18-2024 Glucose [Mass/Vol] 119 mg/dL High 70-99 [facility] Serum or plasma alanine medrano otransferase (ALT) measurementOrdered By: Vini Feliciano on 06-18-2024 ALT [Catalytic activity/Vol] 31 U/L <47 [facility] Serum or plasma albumin jung urement (mass/volume)Ordered By: Vini Feliciano on 06-18-2024 Albumin [Mass/Vol] 4.0 g/dL 3.4-4.8 [facility] Serum or plasma albumin/glob ulin mass ratioOrdered By: Vini Feliciano on 06-18-2024 Albumin/Globulin [Mass ratio] 1.3 {ratio} 0.9-2.4 [facility] Serum or plasma alkaline ally sphatase measurementOrdered By: Vinicandy Feliciano on 06-18-2024 ALP [Catalytic activity/Vol] 91 U/L 40-129 [facility] Serum or plasma calcium jung urement (mass/volume)Ordered By: Vinicandy Feliciano on 06-18-2024 Calcium [Mass/Vol] 9.4 mg/dL 7.6-11.0 [facility] Serum or plasma urea nitroge n measurement (mass/volume)Ordered By: Vini Feliciano on 06-18-2024 Urea nitrogen [Mass/Vol] 16 mg/dL 4-19 [facility] Sodium levelOrdered By: Yahirdamaso astrid Feliciano on 06-18-2024 Sodium [Moles/Vol] 138 mmol/L 133-145 [facility] Total proteinOrdered By: Yahir edytajamil Feliciano on 06-18-2024 Protein [Mass/Vol] 7.0 g/dL 5.9-8.4 [facility] Venous blood ammonia measure mentOrdered By: Vini Feliciano on 06-18-2024 Ammonia (P) [Moles/Vol] 16.1 umol/L 16-60 [facility] White blood cell (WBC) count Ordered By: Vini Feliciano on 06-18-2024 WBC (Bld) [#/Vol] 6.4 10*3/uL 4.4-11.0 [facility] HIP, UNI W/ Pelvis 2-3 Views on 05-29-2024 HIP, UNI W/ Pelvis 2-3 Views [facility] Imaging Services [address] [place] [address] HIP, UNI W/ Pelvis 2-3 Views MR#: [id number] Acct: [id number] Name: NAYLA BENNETT Rep #: [id number] : 1955 M 69 From: Jd mar MD PCP: Dr. Eddi Lynn MD Status: REG CLI Study: HIP, UNI W/ Pelvis 2-3 Views Date of Exam: 09/17 Exam# [id number] Ordering Dr: Eddi Lynn MD PROCEDURE: HIP, UNI W/ PELVIS 2-3 VIEWS REASON FOR EXAM: Pain following recent fall. TECHNIQUE: Three views were obtained. COMPARISON: None. FINDINGS: No fracture. No suspicious bone lesion. Normal alignment. Calcified phleboliths are seen in the pelvis. 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 RAD/HIP, UNI W/ Pelvis 2-3 Views IMPRESSION: Degenerative changes. Reading Location: [id number] CC: Dr. 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 Vini scott MD Age/Sex: 69/M Location[place] [facility] Status: Signed HPI HPI Chief Complaint: Details: Interim History: Nayla returns for follow-up visit. He is accompanied by a caregiver from his [facility]. He has a history of diabetes mellitus, [...] (low) Levetiracet (more content not included)... Normal [facility] Emergency Department Summary on 05-22-2024 Emergency Department Summary [facility] Medical Records Department [address] [place] [address] Emergency Department Summary 05/22/24 MR#: [id number] Acct: [id number] Name: NAYLA BENNETT Rep #: [id number] : 1955 69 From: Chet Grover MD PCP: Dr. Dean Felipe MD Status:PRE ER Location: ED HPI History of Present Illness Chief Complaint: Fall Detail of Chief Complaint: Concern for injury to left hip lower back status post fall Informant: other (Attending from [facility]) Limited: other (Nonverbal) Onset/Context/Timing Onset: Today Mechanism/Context: Blunt Injury and Fall [...] history is available Prior similar symptoms: No [facility] Medical History Developmental non-verbal disorder Vitamin B12 deficiency Epilepsy, unspecified, not intractable, without status epilepticus Schizophrenia Seizure disorder Hyperlipidemia HTN (hypertension) Diabetes mellitus, type II Home Medications ???Medication ???Instructions ???Recorded ???Last Taken ???Type loratadine 10 mg tablet 10 mg PO DAILY PRN allergies 07/16 Unknown History omega 8-wcl-cwa-fish oil 300 1 ea PO BID 07/16/16 [...] previous surgery Social History housing: other details: senior care Smoking Status: Never smoker Electronic Cigarette Use: [...] or indica (more content not included)... Normal [facility] Basophil percentageOrdered B y: Vini Feliciano on 06-12-2023 Ammonia (P) [Moles/Vol] 12.0 umol/L 11-32 [facility] Basophil percentage 17.0 ug/mL 10.0-40.0 [facility] Bilirubin [Mass/Vol] 0.40 mg/dL 0.20-1.00 [facility] Comment on above: For patients on eltr ombopag therapy, use of Dimension [place] TBIL is not recommended. Chloride [Moles/Vol] 102 mmol/L 98-107 [facility] Glucose [Mass/Vol] 128 mg/dL 74-106 [facility] Comment on above: Fasting Glucose resu lt greater than or equal to 126 mg/dL suggests DIABETES MELLITUS per A.D.A. criteria. Hemoglobin (Bld) [Mass/Vol] 15.6 g/dL 13.0-16.5 [facility] Potassium [Moles/Vol] 4.1 mmol/L 3.5-5.1 [facility] Protein [Mass/Vol] 7.5 g/dL 6.4-8.2 [facility] Sodium [Moles/Vol] 137 mmol/L 136-145 [facility] WBC (Bld) [#/Vol] 10.1 10*3/uL 4.4-11.0 [facility] Determination of erythrocyte mean corpuscular volume (MCV)Ordered By: Vini Feliciano on 06-12-2023 MCV (RBC) [Entitic vol] 88.8 fL 80-94 [facility] Erythrocyte distribution wid th ratioOrdered By: Vinicandy Feliciano on 06-12-2023 Erythrocyte distribution width (RBC) [Ratio] 12.1 % 11.6-14.6 [facility] Erythrocyte distribution wid th standard deviationOrdered By: Vini [facility]23 Erythrocyte distribution width (RBC) [Entitic vol] 39.6 fL 35.1-43.9 [facility] Hematocrit Auto (Bld) [Volum e fraction]Ordered By: Vini Feliciano on 06-12-2023 Hematocrit (Bld) [Volume fraction] 45.8 % 40-54 [facility] Laboratory - Chemistry and C hemistry - challengeOrdered By: Vinicandy Feliciano on 06-12-2023 Albumin/Globulin [Mass ratio] 1.0 {ratio} 0.9-2.4 [facility] ALP [Catalytic activity/Vol] 101 U/L 45-117 [facility] ALT [Catalytic activity/Vol] 27 U/L 16-61 [facility] CO2 [Moles/Vol] 28.0 mmol/L 21.0-32.0 [facility] Globulin (S) [Mass/Vol] 3.7 g/dL 2.2-4.2 [facility] Urea nitrogen/Creatinine [Mass ratio] 14.2 mg/mg 10-20 [facility] Laboratory - Hematology and Cell countsOrdered By: Vini Feliciano on 06-12-2023 MCH (RBC) [Entitic mass] 30.2 pg 27.0-32.0 [facility] MCHC (RBC) [Mass/Vol] 34.1 g/dL 32-36 [facility] Platelet mean volume (Bld) [Entitic vol] 9.0 fL 6.2-12.0 [facility] Platelets (Bld) [#/Vol] 277 10*3/uL 150-450 [facility] No Panel InformationOrdered By: Vini Feliciano on 06-12-2023 Estimated GFR (MDRD) Amer 89 mL/min >60 [facility] Comment on above: GFR Calc Estimated GFR (MDRD) Non-Af Amer 74 mL/min >60 [facility] Comment on above: Non- GFR Calc Levetiracetam (Keppra) Level 18.9 ug/mL 10.0-40.0 [facility] Comment on above: Performed at: [address] [id number] Director: Vickey Romeo MD, Phone: [phone] RBC Auto (Bld) [#/Vol]Ordere d By: Vini Feliciano on 06-12-2023 RBC (Bld) [#/Vol] 5.16 10*6/uL 4.6-6.2 [facility] Serum or plasma calcium jung urement (mass/volume)Ordered By: Vini Feliciano on 06-12-2023 Calcium [Mass/Vol] 9.3 mg/dL 8.5-10.1 [facility] Serum or plasma creatinine m easurement (mass/volume)Ordered By: Vini Feliciano on 06-12-2023 Creatinine [Mass/Vol] 1.06 mg/dL 0.70-1.30 [facility] Comment on above: The validity of the calculated GFR & GFRAA in patients over 70 years has not been determined. Clinical correlation is essential. Serum or plasma urea nitroge n measurement (mass/volume)Ordered By: Vini Feliciano on 06-12-2023 Urea nitrogen [Mass/Vol] 15 mg/dL 7-18 [facility] Thin prep Papanicolaou smear with manual screeningOrdered By: Vini Feliciano on 06-12-2023 Thin prep Papanicolaou smear with manual screening 3.8 g/dL 3.2-5.0 [facility] Thin prep Papanicolaou smear with manual screening 19 U/L 15-37 [facility] Thin prep Papanicolaou smear with manual screening 7 5-15 [facility] Absolute lymphocyte countOrd ered By: Dean Felipe on 05-01-2023 Lymphocytes Auto (Unsp spec) [#/Vol] 2.71 10*3/uL 0.83-4.51 [facility] Automated lymphocyte count a s percentage of total leukocytesOrdered By: Dean Felipe on 05-01-2023 Lymphocytes/100 WBC Auto (Unsp spec) 27.1 % 19-41 [facility] Basophil percentageOrdered B y: Dean Felipe on 05-01-2023 Basophils/100 WBC (Bld) 0.6 % 0-1 [facility] Bilirubin [Mass/Vol] 0.20 mg/dL 0.20-1.00 [facility] Comment on above: For patients on eltr ombopag therapy, use of Dimension [place] TBIL is not recommended. Chloride [Moles/Vol] 98 mmol/L 98-107 [facility] Cholesterol [Mass/Vol] 107 mg/dL <200 [facility] Comment on above: <200 mg/dL Desirable 200-240 mg/dL Borderline >240 mg/dL High Risk Eosinophils/100 WBC (Bld) 3.1 % 0-5 [facility] Glucose [Mass/Vol] 96 mg/dL 74-106 [facility] Hemoglobin (Bld) [Mass/Vol] 14.3 g/dL 13.0-16.5 [facility] Monocytes/100 WBC (Bld) 8.8 % 0-10 [facility] Neutrophils (Bld) [#/Vol] 6.0 10*3/uL 2.0-7.7 [facility] Neutrophils/100 WBC (Bld) 60.2 % 47-70 [facility] Potassium [Moles/Vol] 4.2 mmol/L 3.5-5.1 [facility] Protein [Mass/Vol] 6.9 g/dL 6.4-8.2 [facility] Sodium [Moles/Vol] 129 mmol/L 136-145 [facility] Triglyceride [Mass/Vol] 120 mg/dL <199 [facility] Comment on above: The drugs N-Acetylcy steine and Metamizole may falsely depress this assay.Serum Triglycerides Reference Interval Normal <150 mg/dL Borderline high 150 - 199 mg/dL High 200 - 499 mg/dL Very High > or = 500 mg/dL WBC (Bld) [#/Vol] 10.0 10*3/uL 4.4-11.0 [facility] Determination of erythrocyte mean corpuscular volume (MCV)Ordered By: Dean Felipe on 05-01-2023 MCV (RBC) [Entitic vol] 86.8 fL 80-94 [facility] Erythrocyte distribution wid th ratioOrdered By: Dean Felipe on 05-01-2023 Erythrocyte distribution width (RBC) [Ratio] 11.9 % 11.6-14.6 [facility] Erythrocyte distribution wid th standard deviationOrdered By: [facility] on 05-01-[facility]23 Erythrocyte distribution width (RBC) [Entitic vol] 38.1 fL 35.1-43.9 [facility] Hematocrit Auto (Bld) [Volum e fraction]Ordered By: [facility] on 05-01-2023 Hematocrit (Bld) [Volume fraction] 41.6 % 40-54 [facility] Immature granulocytes/100 WB C Auto (Bld)Ordered By: [facility] on 05-01-2023 Immature granulocytes/100 WBC (Bld) 0.200 % 0.0-0.9 [facility] Comment on above: IG% - Immature Granu locytes (promyelocytes, myelocytes and metamyelocytes) > 1% indicates that a LEFT SHIFT is Present. Laboratory - Chemistry and C hemistry - challengeOrdered By: [facility] on 05-01-2023 Albumin/Globulin [Mass ratio] 1.1 {ratio} 0.9-2.4 [facility] ALP [Catalytic activity/Vol] 99 U/L 45-117 [facility] ALT [Catalytic activity/Vol] 26 U/L 16-61 [facility] Cholesterol in HDL [Mass/Vol] 38 mg/dL >40 [facility] Comment on above: The drugs N-Acetylcy steine and Metamizole may falsely depress this assay. Reference Range HDL <40 mg/dL Low HDL Cholesterol HDL >or= 60 mg/dL High HDL Cholesterol Cholesterol in LDL [Mass/Vol] 45 mg/dL 0-130 [facility] CO2 [Moles/Vol] 24.0 mmol/L 21.0-32.0 [facility] Globulin (S) [Mass/Vol] 3.3 g/dL 2.2-4.2 [facility] Urea nitrogen/Creatinine [Mass ratio] 16.6 mg/mg 10-20 [facility] Laboratory - Hematology and Cell countsOrdered By: [facility] on 05-01-2023 MCH (RBC) [Entitic mass] 29.9 pg 27.0-32.0 [facility] MCHC (RBC) [Mass/Vol] 34.4 g/dL 32-36 [facility] Nucleated RBC/100 WBC (Bld) [Ratio] 0 % 0-5 [facility] Platelet mean volume (Bld) [Entitic vol] 9.1 fL 6.2-12.0 [facility] Platelets (Bld) [#/Vol] 318 10*3/uL 150-450 [facility] No Panel InformationOrdered By: Dean Felipe on 05-01-2023 Urine Microalbumin/Creatinine Ratio 33.3 mg/g CRE <30 [facility] Estimated GFR (MDRD) Amer 100 mL/min >60 [facility] Comment on above: GFR Calc Estimated GFR (MDRD) Non-Af Amer 82 mL/min >60 [facility] Comment on above: Non- GFR Calc Vitamin D 25-Hydroxy 59.6 ng/mL [facility] Comment on above: Vitamin D 25(OH) Sta tus Range Deficiency <20 ng/mL (50nmol/L) Insufficiency 20 - 30 ng/mL (50 - 75 nmol/L) Sufficiency 30 - 100 ng/mL (75 - 250 nmol/L) Toxicity >100 ng/mL (>250 nmol/L) VLDL Cholesterol 24 mg/dL 5-40 [facility] RBC Auto (Bld) [#/Vol]Ordere d By: Dean Felipe on 05-01-2023 RBC (Bld) [#/Vol] 4.79 10*6/uL 4.6-6.2 [facility] Serum or plasma calcium jung urement (mass/volume)Ordered By: Dean Felipe on 05-01-2023 Calcium [Mass/Vol] 8.9 mg/dL 8.5-10.1 [facility] Serum or plasma creatinine m easurement (mass/volume)Ordered By: Dean Felipe on 05-01-2023 Creatinine [Mass/Vol] 0.96 mg/dL 0.70-1.30 [facility] Comment on above: The validity of the calculated GFR & GFRAA in patients over 70 years has not been determined. Clinical correlation is essential. Serum or plasma thyroid stim ulating hormone (TSH) measurement (units/volume)Ordered By: Dean Felipe on 05-01-2023 TSH Qn 3.02 uIU/mL 0.358-3.74 [facility] Serum or plasma urea nitroge n measurement (mass/volume)Ordered By: Dean Felipe on 05-01-2023 Urea nitrogen [Mass/Vol] 16 mg/dL 7-18 [facility] Thin prep Papanicolaou smear with manual screeningOrdered By: Dean Felipe on 05-01-2023 Thin prep Papanicolaou smear with manual screening 15.0 mg/L NO RANGE EST. [facility] Thin prep Papanicolaou smear with manual screening 3.6 g/dL 3.2-5.0 [facility] Thin prep Papanicolaou smear with manual screening 17 U/L 15-37 [facility] Thin prep Papanicolaou smear with manual screening 7 5-15 [facility] Urine creatinine measurement (mass/volume)Ordered By: Dean Felipe on 05-01-2023 Creatinine (U) [Mass/Vol] 45.10 mg/dL NO RANGE EST. [facility] Whole blood hemoglobin A1c/t otal hemoglobin ratio (mass fraction)Ordered By: Dean Felipe on 05-01-2023 HbA1c (Bld) [Mass fraction] 6.0 % 3.8-5.6 [facility] Comment on above: Normal < 5.7 % Predi abetic 5.7 - 6.4 % Diabetic >or= 6.5 % Please note range changes. Basophil percentageOrdered B y: Vini Feliciano on 12-19-2022 Ammonia (P) [Moles/Vol] 14.0 umol/L 11-32 [facility] Basophil percentage 18.2 ug/mL 10.0-40.0 [facility] Bilirubin [Mass/Vol] 0.30 mg/dL 0.20-1.00 [facility] Comment on above: For patients on eltr ombopag therapy, use of Dimension [place] TBIL is not recommended. Chloride [Moles/Vol] 102 mmol/L 98-107 [facility] Glucose [Mass/Vol] 130 mg/dL 74-106 [facility] Comment on above: Fasting Glucose resu lt greater than or equal to 126 mg/dL suggests DIABETES MELLITUS per A.D.A. criteria. Potassium [Moles/Vol] 4.3 mmol/L 3.5-5.1 [facility] Protein [Mass/Vol] 7.6 g/dL 6.4-8.2 [facility] Sodium [Moles/Vol] 134 mmol/L 136-145 [facility] Laboratory - Chemistry and C hemistry - challengeOrdered By: Vini Feliciano on 12-19-2022 ALP [Catalytic activity/Vol] 112 U/L 45-117 [facility] ALT [Catalytic activity/Vol] 27 U/L 16-61 [facility] CO2 [Moles/Vol] 28.0 mmol/L 21.0-32.0 [facility] Globulin (S) [Mass/Vol] 3.9 g/dL 2.2-4.2 [facility] Urea nitrogen/Creatinine [Mass ratio] 16.0 mg/mg 10-20 [facility] No Panel InformationOrdered By: Vini Feliciano on 12-19-2022 Estimated GFR (MDRD) Amer 103 mL/min >60 [facility] Comment on above: GFR Calc Estimated GFR (MDRD) Non-Af Amer 85 mL/min >60 [facility] Comment on above: Non- GFR Calc Levetiracetam (Keppra) Level 33.4 ug/mL 10.0-40.0 [facility] Comment on above: Performed at: [address] [id number] Director: Vickey Romeo MD, Phone: [phone] Serum or plasma albumin jung urement (mass/volume)Ordered By: Vini Feliciano on 12-19-2022 Albumin [Mass/Vol] 3.7 g/dL 3.2-5.0 [facility] Serum or plasma albumin/glob ulin mass ratioOrdered By: Vini Feliciano on 12-19-2022 Albumin/Globulin [Mass ratio] 0.9 {ratio} 0.9-2.4 [facility] Serum or plasma calcium jung urement (mass/volume)Ordered By: Vini Feliciano on 12-19-2022 Calcium [Mass/Vol] 10.0 mg/dL 8.5-10.1 [facility] Serum or plasma creatinine m easurement (mass/volume)Ordered By: Vini Feliciano on 12-19-2022 Creatinine [Mass/Vol] 0.94 mg/dL 0.70-1.30 [facility] Comment on above: The validity of the calculated GFR & GFRAA in patients over 70 years has not been determined. Clinical correlation is essential. Serum or plasma urea nitroge n measurement (mass/volume)Ordered By: Vini Feliciano on 12-19-2022 Urea nitrogen [Mass/Vol] 15 mg/dL 7-18 [facility] Thin prep Papanicolaou smear with manual screeningOrdered By: Vini Feliciano on 12-19-2022 Thin prep Papanicolaou smear with manual screening 12 U/L 15-37 [facility] Thin prep Papanicolaou smear with manual screening 4 5-15 [facility] Absolute lymphocyte countOrd ered By: Alice Mckeon on 11-05-2022 Lymphocytes Auto (Unsp spec) [#/Vol] 2.33 10*3/uL 0.83-4.51 [facility] Basophil percentageOrdered B y: Alice Mckeon on 11-05-2022 Basophil percentage 3.2 mg/dL 2.5-4.9 [facility] Basophils/100 WBC (Bld) 0.5 % 0-1 [facility] Bilirubin [Mass/Vol] 0.30 mg/dL 0.20-1.00 [facility] Comment on above: For patients on eltr ombopag therapy, use of Dimension [place] TBIL is not recommended. Chloride [Moles/Vol] 99 mmol/L 98-107 [facility] Eosinophils/100 WBC (Bld) 0.6 % 0-5 [facility] Glucose [Mass/Vol] 124 mg/dL 74-106 [facility] Comment on above: Fasting Glucose resu lt from 100 to 125 mg/dL suggests IMPAIRED HOMEOSTASIS per A.D.A. criteria. Neutrophils (Bld) [#/Vol] 5.1 10*3/uL 2.0-7.7 [facility] Neutrophils/100 WBC (Bld) 55.5 % 47-70 [facility] Potassium [Moles/Vol] 3.8 mmol/L 3.5-5.1 [facility] Protein [Mass/Vol] 6.7 g/dL 6.4-8.2 [facility] Sodium [Moles/Vol] 133 mmol/L 136-145 [facility] WBC (Bld) [#/Vol] 9.3 10*3/uL 4.4-11.0 [facility] Blood erythrocytes count (nu mber/volume)Ordered By: Alice Mckeon on 11-05-2022 RBC (Bld) [#/Vol] 4.70 10*6/uL 4.6-6.2 [facility] Blood hemoglobin measurement (mass/volume)Ordered By: Alice Mckeon on 11-05-2022 Hemoglobin (Bld) [Mass/Vol] 13.9 g/dL 13.0-16.5 [facility] Blood lymphocytes/100 leukoc ytesOrdered By: Alice Mckeon on 11-05-2022 Lymphocytes/100 WBC (Bld) 25.1 % 19-41 [facility] Blood monocytes/100 leukocyt esOrdered By: Alice Mckeon on 11-05-2022 Monocytes/100 WBC (Bld) 18.0 % 0-10 [facility] Blood platelet mean volumeOr dered By: Alice Mckeon on 11-05-2022 Platelet mean volume (Bld) [Entitic vol] 9.2 fL 6.2-12.0 [facility] Determination of erythrocyte mean corpuscular volume (MCV)Ordered By: Alice Mckeon on 11-05-2022 MCV (RBC) [Entitic vol] 86.2 fL 80-94 [facility] Glucose Glucometer (BldC) [M ass/Vol]Ordered By: Alice Mckeon on 11-05-2022 Glucose [Mass/Vol] 130 mg/dL 74-106 [facility] Comment on above: MANAGEMENT OF PATIEN T CARE PER NURSING PROTOCOL Hematocrit Auto (Bld) [Volum e fraction]Ordered By: Alice Mckeon on 11-05-2022 Hematocrit (Bld) [Volume fraction] 40.5 % 40-54 [facility] Laboratory - Chemistry and C hemistry - challengeOrdered By: Alice Mckeon on 11-05-2022 ALP [Catalytic activity/Vol] 82 U/L 45-117 [facility] ALT [Catalytic activity/Vol] 35 U/L 16-61 [facility] CO2 [Moles/Vol] 26.0 mmol/L 21.0-32.0 [facility] Globulin (S) [Mass/Vol] 3.7 g/dL 2.2-4.2 [facility] Magnesium [Mass/Vol] 2.0 mg/dL 1.6-2.6 [facility] Urea nitrogen/Creatinine [Mass ratio] 17.5 mg/mg 10-20 [facility] Laboratory - Hematology and Cell countsOrdered By: Alice Mckeon on 11-05-2022 Erythrocyte distribution width (RBC) [Entitic vol] 37.2 fL 35.1-43.9 [facility] Erythrocyte distribution width (RBC) [Ratio] 11.9 % 11.6-14.6 [facility] Immature granulocytes/100 WBC (Bld) 0.300 % 0.0-0.9 [facility] Comment on above: IG% - Immature Granu locytes (promyelocytes, myelocytes and metamyelocytes) > 1% indicates that a LEFT SHIFT is Present. MCH (RBC) [Entitic mass] 29.6 pg 27.0-32.0 [facility] Nucleated RBC/100 WBC (Bld) [Ratio] 0 % 0-5 [facility] MCHC Auto (RBC) [Mass/Vol]Or dered By: Alice Mckeon on 11-05-2022 MCHC (RBC) [Mass/Vol] 34.3 g/dL 32-36 [facility] No Panel InformationOrdered By: Alice Mckeon on 11-05-2022 Estimated Creatinine Clearance Calc 85.50 ml/min [facility] Estimated GFR (MDRD) Amer 123 mL/min >60 [facility] Comment on above: GFR Calc Estimated GFR (MDRD) Non-Af Amer 102 mL/min >60 [facility] Comment on above: Non- GFR Calc Thyroid Stimulating Hormone (TSH) 3.49 uIU/mL 0.358-3.74 [facility] Platelets bldOrdered By: Samanta Mckeon on 11-05-2022 Platelets (Bld) [#/Vol] 275 10*3/uL 150-450 [facility] Serum or plasma albumin jung urement (mass/volume)Ordered By: Alice Mckeon on 11-05-2022 Albumin [Mass/Vol] 3.0 g/dL 3.2-5.0 [facility] Serum or plasma albumin/glob ulin mass ratioOrdered By: Alice Mckeon on 11-05-2022 Albumin/Globulin [Mass ratio] 0.8 {ratio} 0.9-2.4 [facility] Serum or plasma calcium jung urement (mass/volume)Ordered By: Alice Mckeon on 11-05-2022 Calcium [Mass/Vol] 8.4 mg/dL 8.5-10.1 [facility] Serum or plasma creatinine m easurement (mass/volume)Ordered By: Alice Mckeon on 11-05-2022 Creatinine [Mass/Vol] 0.80 mg/dL 0.70-1.30 [facility] Comment on above: The validity of the calculated GFR & GFRAA in patients over 70 years has not been determined. Clinical correlation is essential. Serum or plasma urea nitroge n measurement (mass/volume)Ordered By: Alice Mckeon on 11-05-2022 Urea nitrogen [Mass/Vol] 14 mg/dL 7-18 [facility] Thin prep Papanicolaou smear with manual screeningOrdered By: Alice Mckeon on 11-05-2022 Thin prep Papanicolaou smear with manual screening 63 U/L 15-37 [facility] Thin prep Papanicolaou smear with manual screening 8 5-15 [facility] Absolute lymphocyte countOrd ered By: Jefferson Lazar on 11-04-2022 Lymphocytes Auto (Unsp spec) [#/Vol] 0.63 10*3/uL 0.83-4.51 [facility] Basophil percentageOrdered B y: Alice Mckeon on 11-04-2022 Basophil percentage 0 SEEN /hpf 0-5 [facility] Basophil percentageOrdered B y: Jefferson Lazar on 11-04-2022 Basophils/100 WBC (Bld) 0.4 % 0-1 [facility] Chloride [Moles/Vol] 95 mmol/L 98-107 [facility] Eosinophils/100 WBC (Bld) 0.1 % 0-5 [facility] Glucose [Mass/Vol] 152 mg/dL 74-106 [facility] Comment on above: Fasting Glucose resu lt greater than or equal to 126 mg/dL suggests DIABETES MELLITUS per A.D.A. criteria. Neutrophils (Bld) [#/Vol] 8.9 10*3/uL 2.0-7.7 [facility] Neutrophils/100 WBC (Bld) 80.2 % 47-70 [facility] Potassium [Moles/Vol] 3.9 mmol/L 3.5-5.1 [facility] Sodium [Moles/Vol] 128 mmol/L 136-145 [facility] WBC (Bld) [#/Vol] 11.1 10*3/uL 4.4-11.0 [facility] Bilirubin Test strip Ql (U)O rdered By: Alice Mckeon on 11-04-2022 Bilirubin Ql (U) Negative Negative [facility] Blood erythrocytes count (nu mber/volume)Ordered By: Jefferson Lazar on 11-04-2022 RBC (Bld) [#/Vol] 4.41 10*6/uL 4.6-6.2 [facility] Blood hemoglobin measurement (mass/volume)Ordered By: Jefferson Lazar on 11-04-2022 Hemoglobin (Bld) [Mass/Vol] 13.2 g/dL 13.0-16.5 [facility] Blood lymphocytes/100 leukoc ytesOrdered By: Jefferson Lazar on 11-04-2022 Lymphocytes/100 WBC (Bld) 5.7 % 19-41 [facility] Blood monocytes/100 leukocyt esOrdered By: Jefferson Lazar on 11-04-2022 Monocytes/100 WBC (Bld) 13.2 % 0-10 [facility] Blood platelet mean volumeOr dered By: Jefferson Lazar on 11-04-2022 Platelet mean volume (Bld) [Entitic vol] 9.1 fL 6.2-12.0 [facility] Determination of erythrocyte mean corpuscular volume (MCV)Ordered By: Jefferson Lazar on 11-04-2022 MCV (RBC) [Entitic vol] 85.7 fL 80-94 [facility] Hematocrit Auto (Bld) [Volum e fraction]Ordered By: Jefferson Lazar on 11-04-2022 Hematocrit (Bld) [Volume fraction] 37.8 % 40-54 [facility] Ketones Test strip Ql (U)Ord ered By: Alice Mckeon on 11-04-2022 Ketones Ql (U) 5 mg/dl Negative [facility] Laboratory - Chemistry and C hemistry - challengeOrdered By: Jefferson Lazar on 11-04-2022 CO2 [Moles/Vol] 24.0 mmol/L 21.0-32.0 [facility] Urea nitrogen/Creatinine [Mass ratio] 15.7 mg/mg 10-20 [facility] Laboratory - Hematology and Cell countsOrdered By: Jefferson Lazar on 11-04-2022 Erythrocyte distribution width (RBC) [Entitic vol] 37.2 fL 35.1-43.9 [facility] Erythrocyte distribution width (RBC) [Ratio] 11.8 % 11.6-14.6 [facility] Immature granulocytes/100 WBC (Bld) 0.400 % 0.0-0.9 [facility] Comment on above: IG% - Immature Granu locytes (promyelocytes, myelocytes and metamyelocytes) > 1% indicates that a LEFT SHIFT is Present. MCH (RBC) [Entitic mass] 29.9 pg 27.0-32.0 [facility] Nucleated RBC/100 WBC (Bld) [Ratio] 0 % 0-5 [facility] MCHC Auto (RBC) [Mass/Vol]Or dered By: Jefferson Lazar on 11-04-2022 MCHC (RBC) [Mass/Vol] 34.9 g/dL 32-36 [facility] Mucus LM Ql (Urine sed)Order ed By: Alice Mckeon on 11-04-2022 Mucus Ql (Urine sed) 0 SEEN /hpf [facility] Nitrite Test strip Ql (U)Ord ered By: Alice Mckeon on 11-04-2022 Nitrite Ql (U) Negative Negative [facility] No Panel InformationOrdered By: Jefferson Lazar on 11-04-2022 D-Dimer Quantitative (PE/DVT) 0.39 FEU/ug/m 0.27-0.49 [facility] Comment on above: NORMAL D-Dimer level (<0.50) indicates no DVT or PE. Estimated Creatinine Clearance Calc 72.00 ml/min [facility] Estimated GFR (MDRD) Amer 101 mL/min >60 [facility] Comment on above: GFR Calc Estimated GFR (MDRD) Non-Af Amer 83 mL/min >60 [facility] Comment on above: Non- GFR Calc Platelets bldOrdered By: Gerry Lazar on 11-04-2022 Platelets (Bld) [#/Vol] 251 10*3/uL 150-450 [facility] Protein Test strip Ql (U)Ord ered By: Alice Mckeon on 11-04-2022 Protein Ql (U) 30 mg/dl Negative [facility] SARS-CoV-2 (COVID-19) Ag IA. rapid Ql (Resp)Ordered By: Jefferson Lazar on 11-04-2022 SARS-CoV-2 Antigen (Rapid) SARS-CoV-2 (COVID 19) [facility] Serum or plasma calcium jung urement (mass/volume)Ordered By: Jefferson Lzaar on 11-04-2022 Calcium [Mass/Vol] 8.5 mg/dL 8.5-10.1 [facility] Serum or plasma creatinine m easurement (mass/volume)Ordered By: Jefferson Lazar on 11-04-2022 Creatinine [Mass/Vol] 0.95 mg/dL 0.70-1.30 [facility] Comment on above: The validity of the calculated GFR & GFRAA in patients over 70 years has not been determined. Clinical correlation is essential. Serum or plasma urea nitroge n measurement (mass/volume)Ordered By: Jefferson Lazar on 11-04-2022 Urea nitrogen [Mass/Vol] 15 mg/dL 7-18 [facility] Squamous epithelial cells de tection in urine sediment by light microscopyOrdered By: Alice Mckeon on 11-04-2022 Epithelial cells.squamous LM Ql (Urine sed) 0 SEEN /hpf 0-5 [facility] Thin prep Papanicolaou smear with manual screeningOrdered By: Jefferson Lazar on 11-04-2022 Thin prep Papanicolaou smear with manual screening 9 5-15 [facility] Urine blood detectionOrdered By: Alice Mckeon on 11-04-2022 RBC Ql (U) 50 /ul Negative [facility] RBC Ql (U) 0 SEEN /hpf 0-5 [facility] Urine clarityOrdered By: Samanta Mckeon on 11-04-2022 Clarity (U) Clear Clear [facility] Urine color determinationOrd ered By: Alice Mckeon on 11-04-2022 Color (U) Yellow Yellow [facility] Urine glucose detectionOrder ed By: Alice Mckeon on 11-04-2022 Glucose Ql (U) 250 mg/dl Normal [facility] Urine leukocyte esterase det ection by dipstickOrdered By: Alice Mckeon on 11-04-2022 Leukocyte esterase Test strip Ql (U) Negative Negative [facility] Urine pHOrdered By: Alice Mckeon on 11-04-2022 pH (U) 6.5 [pH] 5.0 - 8.0 [facility] Urine sediment bacteria coun t by microscopy (number/high power field)Ordered By: Alice Mckeon on 11-04-2022 Bacteria LM.HPF (Urine sed) [#/Area] 0 /[HPF] None Seen [facility] Urine specific gravity measu rementOrdered By: Alice Mckeon on 11-04-2022 Specific gravity (U) [Rel density] 1.010 1.002-1.030 [facility] Urobilinogen Auto test strip Ql (U)Ordered By: Alice Mckeon on 11-04-2022 Urobilinogen Ql (U) Normal mg/dl Normal [facility] Absolute lymphocyte countOrd ered By: Dean Felipe on 10-25-2022 Lymphocytes Auto (Unsp spec) [#/Vol] 2.35 10*3/uL 0.83-4.51 [facility] Basophil percentageOrdered B y: Dean Felipe on 10-25-2022 Basophils/100 WBC (Bld) 0.7 % 0-1 [facility] Bilirubin [Mass/Vol] 0.30 mg/dL 0.20-1.00 [facility] Comment on above: For patients on eltr ombopag therapy, use of Dimension [place] TBIL is not recommended. Chloride [Moles/Vol] 98 mmol/L 98-107 [facility] Cholesterol [Mass/Vol] 102 mg/dL <200 [facility] Comment on above: <200 mg/dL Desirable 200-240 mg/dL Borderline >240 mg/dL High Risk Eosinophils/100 WBC (Bld) 2.7 % 0-5 [facility] Glucose [Mass/Vol] 95 mg/dL 74-106 [facility] Neutrophils (Bld) [#/Vol] 6.2 10*3/uL 2.0-7.7 [facility] Neutrophils/100 WBC (Bld) 62.2 % 47-70 [facility] Potassium [Moles/Vol] 4.3 mmol/L 3.5-5.1 [facility] Protein [Mass/Vol] 7.4 g/dL 6.4-8.2 [facility] Sodium [Moles/Vol] 130 mmol/L 136-145 [facility] Triglyceride [Mass/Vol] 130 mg/dL <199 [facility] Comment on above: The drugs N-Acetylcy steine and Metamizole may falsely depress this assay.Serum Triglycerides Reference Interval Normal <150 mg/dL Borderline high 150 - 199 mg/dL High 200 - 499 mg/dL Very High > or = 500 mg/dL WBC (Bld) [#/Vol] 9.9 10*3/uL 4.4-11.0 [facility] Blood erythrocytes count (nu mber/volume)Ordered By: Dean Felipe on 10-25-2022 RBC (Bld) [#/Vol] 4.98 10*6/uL 4.6-6.2 [facility] Blood hemoglobin measurement (mass/volume)Ordered By: Dean Felipe on 10-25-2022 Hemoglobin (Bld) [Mass/Vol] 14.7 g/dL 13.0-16.5 [facility] Blood lymphocytes/100 leukoc ytesOrdered By: Dean Felipe on 10-25-2022 Lymphocytes/100 WBC (Bld) 23.7 % 19-41 [facility] Blood monocytes/100 leukocyt esOrdered By: Dean Felipe on 10-25-2022 Monocytes/100 WBC (Bld) 10.5 % 0-10 [facility] Blood platelet mean volumeOr dered By: Dean Felipe on 10-25-2022 Platelet mean volume (Bld) [Entitic vol] 9.4 fL 6.2-12.0 [facility] Determination of erythrocyte mean corpuscular volume (MCV)Ordered By: Dean Felipe on 10-25-2022 MCV (RBC) [Entitic vol] 86.9 fL 80-94 [facility] Hematocrit Auto (Bld) [Volum e fraction]Ordered By: Dean Felipe on 10-25-2022 Hematocrit (Bld) [Volume fraction] 43.3 % 40-54 [facility] Laboratory - Chemistry and C hemistry - challengeOrdered By: Dean Felipe on 10-25-2022 ALP [Catalytic activity/Vol] 110 U/L 45-117 [facility] ALT [Catalytic activity/Vol] 27 U/L 16-61 [facility] CO2 [Moles/Vol] 26.0 mmol/L 21.0-32.0 [facility] Globulin (S) [Mass/Vol] 3.8 g/dL 2.2-4.2 [facility] Urea nitrogen/Creatinine [Mass ratio] 15.7 mg/mg 10-20 [facility] Laboratory - Hematology and Cell countsOrdered By: Dean Felipe on 10-25-2022 Erythrocyte distribution width (RBC) [Entitic vol] 38.0 fL 35.1-43.9 [facility] Erythrocyte distribution width (RBC) [Ratio] 11.9 % 11.6-14.6 [facility] Immature granulocytes/100 WBC (Bld) 0.200 % 0.0-0.9 [facility] Comment on above: IG% - Immature Granu locytes (promyelocytes, myelocytes and metamyelocytes) > 1% indicates that a LEFT SHIFT is Present. MCH (RBC) [Entitic mass] 29.5 pg 27.0-32.0 [facility] Nucleated RBC/100 WBC (Bld) [Ratio] 0 % 0-5 [facility] MCHC Auto (RBC) [Mass/Vol]Or dered By: Dean Felipe on 10-25-2022 MCHC (RBC) [Mass/Vol] 33.9 g/dL 32-36 [facility] No Panel InformationOrdered By: Dean Felipe on 10-25-2022 Estimated GFR (MDRD) Amer 101 mL/min >60 [facility] Comment on above: GFR Calc Estimated GFR (MDRD) Non-Af Amer 83 mL/min >60 [facility] Comment on above: Non- GFR Calc Thyroid Stimulating Hormone (TSH) 1.99 uIU/mL 0.358-3.74 [facility] Vitamin D 25-Hydroxy 84.5 ng/mL [facility] Comment on above: Vitamin D 25(OH) Sta tus Range Deficiency <20 ng/mL (50nmol/L) Insufficiency 20 - 30 ng/mL (50 - 75 nmol/L) Sufficiency 30 - 100 ng/mL (75 - 250 nmol/L) Toxicity >100 ng/mL (>250 nmol/L) Platelets bldOrdered By: Dean Felipe on 10-25-2022 Platelets (Bld) [#/Vol] 326 10*3/uL 150-450 [facility] Serum or plasma albumin jung urement (mass/volume)Ordered By: Dean Felipe on 10-25-2022 Albumin [Mass/Vol] 3.6 g/dL 3.2-5.0 [facility] Serum or plasma albumin/glob ulin mass ratioOrdered By: Dean Felipe 10-25-2022 Albumin/Globulin [Mass ratio] 0.9 {ratio} 0.9-2.4 [facility] Serum or plasma calcium jung urement (mass/volume)Ordered By: Dean Felipe 10-25-2022 Calcium [Mass/Vol] 9.2 mg/dL 8.5-10.1 [facility] Serum or plasma cholesterol in HDL measurement (mass/volume)Ordered By: Dean eFlipe on 10-25-2022 Cholesterol in HDL [Mass/Vol] 36 mg/dL >40 [facility] Comment on above: The drugs N-Acetylcy steine and Metamizole may falsely depress this assay. Reference Range HDL <40 mg/dL Low HDL Cholesterol HDL >or= 60 mg/dL High HDL Cholesterol Serum or plasma cholesterol in VLDL measurement (mass/volume)Ordered By: Dean Felipe on 10-25-2022 Cholesterol in VLDL [Mass/Vol] 26 mg/dL 5-40 [facility] Serum or plasma creatinine m easurement (mass/volume)Ordered By: Dean Felipe 10-25-2022 Creatinine [Mass/Vol] 0.96 mg/dL 0.70-1.30 [facility] Comment on above: The validity of the calculated GFR & GFRAA in patients over 70 years has not been determined. Clinical correlation is essential. Serum or plasma low density lipoprotein (LDL) cholesterol measurement (mass/volume)Ordered By: Dean Felipe on 10-25-2022 Cholesterol in LDL [Mass/Vol] 40 mg/dL 0-130 [facility] Serum or plasma urea nitroge n measurement (mass/volume)Ordered By: Dean Felipe on 10-25-2022 Urea nitrogen [Mass/Vol] 15 mg/dL 7-18 [facility] Thin prep Papanicolaou smear with manual screeningOrdered By: Dean Felipe on 10-25-2022 Thin prep Papanicolaou smear with manual screening 16 U/L 15-37 [facility] Thin prep Papanicolaou smear with manual screening 6 5-15 [facility] Whole blood hemoglobin A1c/t otal hemoglobin ratio (mass fraction)Ordered By: Dean Felipe on 10-25-2022 HbA1c (Bld) [Mass fraction] 6.0 % 3.8-5.6 [facility] Comment on above: Normal < 5.7 % Predi abetic 5.7 - 6.4 % Diabetic >or= 6.5 % Please note range changes. Absolute lymphocyte countOrd ered By: Dr. Feliciano on 05-25-2022 Lymphocytes Auto (Unsp spec) [#/Vol] 2.30 10*3/uL 0.83-4.51 [facility] Basophil percentageOrdered B y: Dr. Feliciano on 05-25-2022 Ammonia (P) [Moles/Vol] 19.0 umol/L 11-32 [facility] Basophil percentage 21.1 ug/mL 10.0-40.0 [facility] Basophils/100 WBC (Bld) 0.8 % 0-1 [facility] Bilirubin [Mass/Vol] 0.50 mg/dL 0.20-1.00 [facility] Comment on above: For patients on eltr ombopag therapy, use of Dimension [place] TBIL is not recommended. Chloride [Moles/Vol] 95 mmol/L 98-107 [facility] Eosinophils/100 WBC (Bld) 3.3 % 0-5 [facility] Glucose [Mass/Vol] 139 mg/dL 74-106 [facility] Comment on above: Fasting Glucose resu lt greater than or equal to 126 mg/dL suggests DIABETES MELLITUS per A.D.A. criteria. Neutrophils (Bld) [#/Vol] 6.3 10*3/uL 2.0-7.7 [facility] Neutrophils/100 WBC (Bld) 63.9 % 47-70 [facility] Potassium [Moles/Vol] 4.3 mmol/L 3.5-5.1 [facility] Protein [Mass/Vol] 7.3 g/dL 6.4-8.2 [facility] Sodium [Moles/Vol] 130 mmol/L 136-145 [facility] WBC (Bld) [#/Vol] 9.9 10*3/uL 4.4-11.0 [facility] Blood erythrocytes count (nu mber/volume)Ordered By: Dr. Feliciano on 05-25-2022 RBC (Bld) [#/Vol] 4.93 10*6/uL 4.6-6.2 [facility] Blood hemoglobin measurement (mass/volume)Ordered By: Dr. Feliciano on 05-25-2022 Hemoglobin (Bld) [Mass/Vol] 14.8 g/dL 13.0-16.5 [facility] Blood lymphocytes/100 leukoc ytesOrdered By: Dr. Feliciano on 05-25-2022 Lymphocytes/100 WBC (Bld) 23.3 % 19-41 [facility] Blood monocytes/100 leukocyt esOrdered By: Dr. Feliciano on 05-25-2022 Monocytes/100 WBC (Bld) 8.5 % 0-10 [facility] Blood platelet mean volumeOr dered By: Dr. Feliciano on 05-25-2022 Platelet mean volume (Bld) [Entitic vol] 8.8 fL 6.2-12.0 [facility] Determination of erythrocyte mean corpuscular volume (MCV)Ordered By: Dr. Feliciano on 05-25-2022 MCV (RBC) [Entitic vol] 85.0 fL 80-94 [facility] Hematocrit Auto (Bld) [Volum e fraction]Ordered By: Dr. Feliciano on 05-25-2022 Hematocrit (Bld) [Volume fraction] 41.9 % 40-54 [facility] Laboratory - Chemistry and C hemistry - challengeOrdered By: Dr. Feliciano on 05-25-2022 ALP [Catalytic activity/Vol] 97 U/L 45-117 [facility] ALT [Catalytic activity/Vol] 24 U/L 16-61 [facility] CO2 [Moles/Vol] 27.0 mmol/L 21.0-32.0 [facility] Globulin (S) [Mass/Vol] 3.4 g/dL 2.2-4.2 [facility] Urea nitrogen/Creatinine [Mass ratio] 13.9 mg/mg 10-20 [facility] Laboratory - Hematology and Cell countsOrdered By: Dr. Feliciano on 05-25-2022 Erythrocyte distribution width (RBC) [Entitic vol] 36.6 fL 35.1-43.9 [facility] Erythrocyte distribution width (RBC) [Ratio] 12.0 % 11.6-14.6 [facility] Immature granulocytes/100 WBC (Bld) 0.200 % 0.0-0.9 [facility] Comment on above: IG% - Immature Granu locytes (promyelocytes, myelocytes and metamyelocytes) > 1% indicates that a LEFT SHIFT is Present. MCH (RBC) [Entitic mass] 30.0 pg 27.0-32.0 [facility] Nucleated RBC/100 WBC (Bld) [Ratio] 0 % 0-5 [facility] MCHC Auto (RBC) [Mass/Vol]Or dered By: Dr. Feliciano on 05-25-2022 MCHC (RBC) [Mass/Vol] 35.3 g/dL 32-36 [facility] No Panel InformationOrdered By: Dr. Feliciano on 05-25-2022 Vitamin D 25-Hydroxy 63.8 ng/mL [facility] Comment on above: Vitamin D 25(OH) Sta tus Range Deficiency <20 ng/mL (50nmol/L) Insufficiency 20 - 30 ng/mL (50 - 75 nmol/L) Sufficiency 30 - 100 ng/mL (75 - 250 nmol/L) Toxicity >100 ng/mL (>250 nmol/L) Estimated GFR (MDRD) Amer 94 mL/min >60 [facility] Comment on above: GFR Calc Estimated GFR (MDRD) Non-Af Amer 78 mL/min >60 [facility] Comment on above: Non- GFR Calc Levetiracetam (Keppra) Level 17.9 ug/mL 10.0-40.0 [facility] Comment on above: Performed at: [place] [facility] [employer] [id number] Director: Vickey Romeo MD, Phone: [phone] Prostate Specific Antigen Screen 1.29 ng/mL 0.00-4.00 [facility] Comment on above: This test was perfor med using the TPSA assay method for [employer] chemistry system. Values obtained with differentassay methods cannot be used interchangably.When changing PSA assays in the course of monitoring apatient, additional sequential testing should be carriedout to confirm baseline values. Thyroid Stimulating Hormone (TSH) 3.12 uIU/mL 0.358-3.74 [facility] Platelets bldOrdered By: Dr. Feliciano on 05-25-2022 Platelets (Bld) [#/Vol] 326 10*3/uL 150-450 [facility] Serum or plasma albumin jung urement (mass/volume)Ordered By: Dr. Feliciano on 05-25-2022 Albumin [Mass/Vol] 3.9 g/dL 3.2-5.0 [facility] Serum or plasma albumin/glob ulin mass ratioOrdered By: Dr. Feliciano on 05-25-2022 Albumin/Globulin [Mass ratio] 1.1 {ratio} 0.9-2.4 [facility] Serum or plasma calcium jung urement (mass/volume)Ordered By: Dr. Feliciano on 05-25-2022 Calcium [Mass/Vol] 9.2 mg/dL 8.5-10.1 [facility] Serum or plasma creatinine m easurement (mass/volume)Ordered By: Dr. Feliciano on 05-25-2022 Creatinine [Mass/Vol] 1.01 mg/dL 0.70-1.30 [facility] Comment on above: The validity of the calculated GFR & GFRAA in patients over 70 years has not been determined. Clinical correlation is essential. Serum or plasma urea nitroge n measurement (mass/volume)Ordered By: Dr. Feliciano on 05-25-2022 Urea nitrogen [Mass/Vol] 14 mg/dL 7-18 [facility] Thin prep Papanicolaou smear with manual screeningOrdered By: Dr. Feliciano on 05-25-2022 Thin prep Papanicolaou smear with manual screening 19 U/L 15-37 [facility] Thin prep Papanicolaou smear with manual screening 8 5-15 [facility] Absolute lymphocyte counton 10-12-2021 Lymphocytes Auto (Unsp spec) [#/Vol] 2.74 10*3/uL 0.83-4.51 [facility] Work Phone: Basophil percentageon 2021 Basophils/100 WBC (Bld) 0.7 % 0-1 [facility] Work Phone: Bilirubin [Mass/Vol] 0.20 mg/dL 0.20-1.00 [facility] Work Phone: Comment on above: For patients on eltr ombopag therapy, use of Dimension [place] TBIL is not recommended. Chloride [Moles/Vol] 99 mmol/L 98-107 [facility] Work Phone: Eosinophils/100 WBC (Bld) 2.3 % 0-5 [facility] Work Phone: Glucose [Mass/Vol] 89 mg/dL 74-106 [facility] Work Phone: Neutrophils (Bld) [#/Vol] 6.1 10*3/uL 2.0-7.7 [facility] Work Phone: Neutrophils/100 WBC (Bld) 59.9 % 47-70 [facility] Work Phone: Potassium [Moles/Vol] 4.3 mmol/L 3.5-5.1 [facility] Work Phone: Protein [Mass/Vol] 7.3 g/dL 6.4-8.2 [facility] Work Phone: Sodium [Moles/Vol] 134 mmol/L 136-145 [facility] Work Phone: WBC (Bld) [#/Vol] 10.2 10*3/uL 4.4-11.0 [facility] Work Phone: Blood erythrocytes count (nu mber/volume)on 10-12-2021 RBC (Bld) [#/Vol] 5.21 10*6/uL 4.6-6.2 [facility] Work Phone: Blood hemoglobin measurement (mass/volume)on 10-12-2021 Hemoglobin (Bld) [Mass/Vol] 15.5 g/dL 13.0-16.5 [facility] Work Phone: [phone] Blood lymphocytes/100 leukoc yteson 10-12-2021 Lymphocytes/100 WBC (Bld) 26.9 % 19-41 [facility] Work Phone: [phone] Blood monocytes/100 leukocyt eson 10-12-2021 Monocytes/100 WBC (Bld) 9.8 % 0-10 [facility] Work Phone: [phone] Blood platelet mean volumeon 10-12-2021 Platelet mean volume (Bld) [Entitic vol] 9.2 fL 6.2-12.0 [facility] Work Phone: Determination of erythrocyte mean corpuscular volume (MCV)on 10-12-2021 MCV (RBC) [Entitic vol] 87.1 fL 80-94 [facility] Work Phone: Hematocrit Auto (Bld) [Volum e fraction]on 10-12-2021 Hematocrit (Bld) [Volume fraction] 45.4 % 40-54 [facility] Work Phone: Laboratory - Chemistry and C hemistry - challengeon 10-12-2021 ALP [Catalytic activity/Vol] 93 U/L 45-117 [facility] Work Phone: ALT [Catalytic activity/Vol] 34 U/L 16-61 [facility] Work Phone: CO2 [Moles/Vol] 26.0 mmol/L 21.0-32.0 [facility] Work Phone: Globulin (S) [Mass/Vol] 3.7 g/dL 2.2-4.2 [facility] Work Phone: [phone] Urea nitrogen/Creatinine [Mass ratio] 13.5 mg/mg 10-20 [facility] Work Phone: [phone] Laboratory - Hematology and Cell countson 10-12-2021 Erythrocyte distribution width (RBC) [Entitic vol] 39.1 fL 35.1-43.9 [facility] Work Phone: [phone] Erythrocyte distribution width (RBC) [Ratio] 12.2 % 11.6-14.6 [facility] Work Phone: [phone] Immature granulocytes/100 WBC (Bld) 0.400 % 0.0-0.9 [facility] Work Phone: [phone] Comment on above: IG% - Immature Granu locytes (promyelocytes, myelocytes and metamyelocytes) > 1% indicates that a LEFT SHIFT is Present. MCH (RBC) [Entitic mass] 29.8 pg 27.0-32.0 [facility] Work Phone: [phone] Nucleated RBC/100 WBC (Bld) [Ratio] 0 % 0-5 [facility] Work Phone: [phone] MCHC Auto (RBC) [Mass/Vol]on 10-12-2021 MCHC (RBC) [Mass/Vol] 34.1 g/dL 32-36 [facility] Work Phone: [phone] Panel Informationon 10-12 Estimated GFR (MDRD) Amer 110 mL/min >60 [facility] Work Phone: [phone] Comment on above: GFR Calc Estimated GFR (MDRD) Non-Af Amer 91 mL/min >60 [facility] Work Phone: [phone] Comment on above: Non- GFR Calc Thyroid Stimulating Hormone (TSH) 2.51 uIU/mL 0.358-3.74 [facility] Work Phone: [phone] Vitamin D 25-Hydroxy 58.9 ng/mL [facility] Work Phone: Comment on above: Vitamin D 25(OH) Sta tus Range Deficiency <20 ng/mL (50nmol/L) Insufficiency 20 - 30 ng/mL (50 - 75 nmol/L) Sufficiency 30 - 100 ng/mL (75 - 250 nmol/L) Toxicity >100 ng/mL (>250 nmol/L) Platelets bldon 10-12-2021 Platelets (Bld) [#/Vol] 339 10*3/uL 150-450 [facility] Work Phone: Serum or plasma albumin jung urement (mass/volume)on 10-12-2021 Albumin [Mass/Vol] 3.6 g/dL 3.2-5.0 [facility] Work Phone: Serum or plasma albumin/glob ulin mass ratioon 10-12-2021 Albumin/Globulin [Mass ratio] 1.0 {ratio} 0.9-2.4 [facility] Work Phone: Serum or plasma calcium jung urement (mass/volume)on 10-12-2021 Calcium [Mass/Vol] 9.3 mg/dL 8.5-10.1 [facility] Work Phone: Serum or plasma creatinine m easurement (mass/volume)on 10-12-2021 Creatinine [Mass/Vol] 0.89 mg/dL 0.70-1.30 [facility] Work Phone: Comment on above: The validity of the calculated GFR & GFRAA in patients over 70 years has not been determined. Clinical correlation is essential. Serum or plasma urea nitroge n measurement (mass/volume)on 10-12-2021 Urea nitrogen [Mass/Vol] 12 mg/dL 7-18 [facility] Work Phone: [phone] Thin prep Papanicolaou smear with manual screeningon 10-12-2021 Thin prep Papanicolaou smear with manual screening 17 U/L 15-37 [facility] Work Phone: [phone] Thin prep Papanicolaou smear with manual screening 9 5-15 [facility] Work Phone: Basophil percentageon 2021 Ammonia (P) [Moles/Vol] 19.0 umol/L 11-32 [facility] Work Phone: Chloride [Moles/Vol] 99 mmol/L 98-107 [facility] Work Phone: Glucose [Mass/Vol] 131 mg/dL 74-106 [facility] Work Phone: Comment on above: Fasting Glucose resu lt greater than or equal to 126 mg/dL suggests DIABETES MELLITUS per A.D.A. criteria. Potassium [Moles/Vol] 4.3 mmol/L 3.5-5.1 [facility] Work Phone: Sodium [Moles/Vol] 134 mmol/L 136-145 [facility] Work Phone: Laboratory - Chemistry and C hemistry - challengeon 09-28-2021 CO2 [Moles/Vol] 30.0 mmol/L 21.0-32.0 [facility] Work Phone: Urea nitrogen/Creatinine [Mass ratio] 14.6 mg/mg 10-20 [facility] Work Phone: No Panel Informationon 09-28 Estimated GFR (MDRD) Amer 93 mL/min >60 [facility] Work Phone: Comment on above: GFR Calc Estimated GFR (MDRD) Non-Af Amer 76 mL/min >60 [facility] Work Phone: Comment on above: Non- GFR Calc Levetiracetam (Keppra) Level 15.9 ug/mL 10.0-40.0 [facility] Work Phone: Comment on above: Performed at: - [address] [facility] [id number] Director: Vickey Romeo MD, Phone: [phone] Serum or plasma calcium jung urement (mass/volume)on 09-28-2021 Calcium [Mass/Vol] 9.3 mg/dL 8.5-10.1 [facility] Work Phone: Serum or plasma creatinine m easurement (mass/volume)on 09-28-2021 Creatinine [Mass/Vol] 1.03 mg/dL 0.70-1.30 [facility] Work Phone: Comment on above: The validity of the calculated GFR & GFRAA in patients over 70 years has not been determined. Clinical correlation is essential. Serum or plasma urea nitroge n measurement (mass/volume)on 09-28-2021 Urea nitrogen [Mass/Vol] 15 mg/dL 7-18 [facility] Work Phone: Thin prep Papanicolaou smear with manual screeningon 09-28-2021 Thin prep Papanicolaou smear with manual screening 5 5-15 [facility] Work Phone: Basophil percentageon 2021 Ammonia (P) [Moles/Vol] 16.0 umol/L 11-32 [facility] Work Phone: [phone] Chloride [Moles/Vol] 97 mmol/L 98-107 [facility] Work Phone: [phone] Glucose [Mass/Vol] 126 mg/dL 74-106 [facility] Work Phone: Comment on above: Fasting Glucose resu lt greater than or equal to 126 mg/dL suggests DIABETES MELLITUS per A.D.A. criteria. Potassium [Moles/Vol] 4.0 mmol/L 3.5-5.1 [facility] Work Phone: Sodium [Moles/Vol] 133 mmol/L 136-145 [facility] Work Phone: [phone] Laboratory - Chemistry and C hemistry - challengeon 07-13-2021 CO2 [Moles/Vol] 28.0 mmol/L 21.0-32.0 [facility] Work Phone: [phone] Cobalamin (Vitamin B12) [Mass/Vol] 645 pg/mL 211-911 [facility] Work Phone: [phone] Urea nitrogen/Creatinine [Mass ratio] 11.7 mg/mg 10-20 [facility] Work Phone: [phone] No Panel Informationon 07-13 Estimated GFR (MDRD) Amer 102 mL/min >60 [facility] Work Phone: Comment on above: GFR Calc Estimated GFR (MDRD) Non-Af Amer 85 mL/min >60 [facility] Work Phone: Comment on above: Non- GFR Calc Levetiracetam (Keppra) Level 8.8 ug/mL 10.0-40.0 [facility] Work Phone: Comment on above: Performed at: [place] [facility] [address] [facility] [id number] Director: Vickey Romeo MD, Phone: [phone] Phenobarbital Level 16.2 ug/mL 10.0-40.0 [facility] Work Phone: Vitamin D 25-Hydroxy 66.8 ng/mL [facility] Work Phone: Comment on above: Vitamin D 25(OH) Sta tus Range Deficiency <20 ng/mL (50nmol/L) Insufficiency 20 - 30 ng/mL (50 - 75 nmol/L) Sufficiency 30 - 100 ng/mL (75 - 250 nmol/L) Toxicity >100 ng/mL (>250 nmol/L) Serum or plasma calcium jung urement (mass/volume)on 07-13-2021 Calcium [Mass/Vol] 8.7 mg/dL 8.5-10.1 [facility] Work Phone: Serum or plasma creatinine m easurement (mass/volume)on 07-13-2021 Creatinine [Mass/Vol] 0.94 mg/dL 0.70-1.30 [facility] Work Phone: Comment on above: The validity of the calculated GFR & GFRAA in patients over 70 years has not been determined. Clinical correlation is essential. Serum or plasma urea nitroge n measurement (mass/volume)on 07-13-2021 Urea nitrogen [Mass/Vol] 11 mg/dL 7-18 [facility] Work Phone: Thin prep Papanicolaou smear with manual screeningon 07-13-2021 Thin prep Papanicolaou smear with manual screening 8 5-15 [facility] Work Phone: Absolute lymphocyte counton 04-13-2021 Lymphocytes Auto (Unsp spec) [#/Vol] 2.41 10*3/uL 0.83-4.51 [facility] Work Phone: Basophil percentageon 2021 Basophils/100 WBC (Bld) 0.6 % 0-1 [facility] Work Phone: Bilirubin [Mass/Vol] 0.40 mg/dL 0.20-1.00 [facility] [facility] Work Phone: Comment on above: For patients on eltr ombopag therapy, use of Dimension [place] TBIL is not recommended. Chloride [Moles/Vol] 98 mmol/L 98-107 [facility] Work Phone: Eosinophils/100 WBC (Bld) 1.8 % 0-5 [facility] Work Phone: Glucose [Mass/Vol] 81 mg/dL 74-106 [facility] Work Phone: Neutrophils (Bld) [#/Vol] 8.7 10*3/uL 2.0-7.7 [facility] Work Phone: Neutrophils/100 WBC (Bld) 69.2 % 47-70 [facility] Work Phone: Potassium [Moles/Vol] 4.4 mmol/L 3.5-5.1 [facility] Work Phone: Protein [Mass/Vol] 7.4 g/dL 6.4-8.2 [facility] Work Phone: Sodium [Moles/Vol] 131 mmol/L 136-145 [facility] Work Phone: WBC (Bld) [#/Vol] 12.5 10*3/uL 4.4-11.0 [facility] Work Phone: Blood erythrocytes count (nu mber/volume)on 04-13-2021 RBC (Bld) [#/Vol] 5.20 10*6/uL 4.6-6.2 [facility] Work Phone: Blood hemoglobin measurement (mass/volume)on 04-13-2021 Hemoglobin (Bld) [Mass/Vol] 15.2 g/dL 13.0-16.5 [facility] Work Phone: Blood lymphocytes/100 leukoc yteson 04-13-2021 Lymphocytes/100 WBC (Bld) 19.2 % 19-41 [facility] Work Phone: Blood monocytes/100 leukocyt eson 04-13-2021 Monocytes/100 WBC (Bld) 8.9 % 0-10 [facility] Work Phone: Blood platelet mean volumeon 04-13-2021 Platelet mean volume (Bld) [Entitic vol] 9.1 fL 6.2-12.0 [facility] Work Phone: Determination of erythrocyte mean corpuscular volume (MCV)on 04-13-2021 MCV (RBC) [Entitic vol] 84.2 fL 80-94 [facility] Work Phone: Hematocrit Auto (Bld) [Volum e fraction]on 04-13-2021 Hematocrit (Bld) [Volume fraction] 43.8 % 40-54 [facility] Work Phone: Laboratory - Chemistry and C hemistry - challengeon 04-13-2021 ALP [Catalytic activity/Vol] 107 U/L 45-117 [facility] Work Phone: ALT [Catalytic activity/Vol] 29 U/L 16-61 [facility] Work Phone: CO2 [Moles/Vol] 24.0 mmol/L 21.0-32.0 [facility] Work Phone: Globulin (S) [Mass/Vol] 3.8 g/dL 2.2-4.2 [facility] Work Phone: Urea nitrogen/Creatinine [Mass ratio] 13.2 mg/mg 10-20 [facility] Work Phone: [phone] Laboratory - Hematology and Cell countson 04-13-2021 Erythrocyte distribution width (RBC) [Entitic vol] 36.4 fL 35.1-43.9 [facility] Work Phone: [phone] Erythrocyte distribution width (RBC) [Ratio] 12.0 % 11.6-14.6 [facility] Work Phone: [phone] Immature granulocytes/100 WBC (Bld) 0.300 % 0.0-0.9 [facility] Work Phone: [phone] Comment on above: IG% - Immature Granu locytes (promyelocytes, myelocytes and metamyelocytes) > 1% indicates that a LEFT SHIFT is Present. MCH (RBC) [Entitic mass] 29.2 pg 27.0-32.0 [facility] Work Phone: [phone] Nucleated RBC/100 WBC (Bld) [Ratio] 0 % 0-5 [facility] Work Phone: [phone] MCHC Auto (RBC) [Mass/Vol]on 04-13-2021 MCHC (RBC) [Mass/Vol] 34.7 g/dL 32-36 [facility] Work Phone: [phone] No Panel Informationon 04-13 Estimated GFR (MDRD) Amer 107 mL/min >60 [facility] Work Phone: [phone] Comment on above: GFR Calc Estimated GFR (MDRD) Non-Af Amer 89 mL/min >60 [facility] Work Phone: [phone] Comment on above: Non- GFR Calc Prostate Specific Antigen Screen 0.80 ng/mL 0.00-4.00 [facility] Work Phone: [phone] Comment on above: This test was perfor med using the TPSA assay method for the[facility]. Values obtained with differentassay methods cannot be used interchangably.When changing PSA assays in the course of monitoring apatient, additional sequential testing should be carriedout to confirm baseline values. Thyroid Stimulating Hormone (TSH) 2.58 uIU/mL 0.358-3.74 [facility] Work Phone: Vitamin D 25-Hydroxy 64.2 ng/mL [facility] Work Phone: Comment on above: Vitamin D 25(OH) Sta tus Range Deficiency <20 ng/mL (50nmol/L) Insufficiency 20 - 30 ng/mL (50 - 75 nmol/L) Sufficiency 30 - 100 ng/mL (75 - 250 nmol/L) Toxicity >100 ng/mL (>250 nmol/L) Platelets bldon 04-13-2021 Platelets (Bld) [#/Vol] 328 10*3/uL 150-450 [facility] Work Phone: Serum or plasma albumin jung urement (mass/volume)on 04-13-2021 Albumin [Mass/Vol] 3.6 g/dL 3.2-5.0 [facility] Work Phone: Serum or plasma albumin/glob ulin mass ratioon 04-13-2021 Albumin/Globulin [Mass ratio] 0.9 {ratio} 0.9-2.4 [facility] Work Phone: Serum or plasma calcium jung urement (mass/volume)on 04-13-2021 Calcium [Mass/Vol] 9.2 mg/dL 8.5-10.1 [facility] Work Phone: Serum or plasma creatinine m easurement (mass/volume)on 04-13-2021 Creatinine [Mass/Vol] 0.91 mg/dL 0.70-1.30 [facility] Work Phone: Comment on above: The validity of the calculated GFR & GFRAA in patients over 70 years has not been determined. Clinical correlation is essential. Serum or plasma urea nitroge n measurement (mass/volume)on 04-13-2021 Urea nitrogen [Mass/Vol] 12 mg/dL 7-18 [facility] Work Phone: Thin prep Papanicolaou smear with manual screeningon 04-13-2021 Thin prep Papanicolaou smear with manual screening 15 U/L 15-37 [facility] Work Phone: Thin prep Papanicolaou smear with manual screening 9 5-15 [facility] Work Phone: Vital Signs Date Time Vital Sign Value Performing Clinician Faci lity 01-12-2025 13:44-0400 Heart rate 78 /min Eddi Lynn MD Work Phone: [facility] 01-12-2025 13:42-0400 Body temperature 98 [degF] Eddi Lynn MD Work Phone: [facility] 01-12-2025 13:42-0400 Diastolic blood pressure 57 mm[Hg] Eddi Lynn MD Work Phone: [facility] 01-12-2025 13:42-0400 Respiratory rate 17 /min Eddi Lynn MD Work Phone: [facility] 01-12-2025 13:42-0400 SaO2% (BldA) [Mass fraction] 95 % Eddi Lynn MD Work Phone: [facility] 01-12-2025 13:42-0400 Systolic blood pressure 124 mm[Hg] Eddi Lynn MD Work Phone: [facility] 01-11-2025 18:00-0400 Inhaled oxygen flow rate 2 L/min Eddi Lynn MD Work Phone: [facility] 01-09-2025 09:46-0400 Body height 177.8 cm Eddi Lynn MD Work Phone: 4(055)418-364723 [address] 01-09-2025 09:46-0400 Body weight 107 kg Eddi Lynn MD Work Phone: [facility] 01-09-2025 01:31-0400 Body mass index (BMI) [Ratio] 33.8 kg/m2 Eddi Lynn MD Work Phone: [facility] 01-02-2025 14:15-0400 Heart rate 74 /min Eddi Lynn MD Work Phone: [facility] 01-02-2025 14:14-0400 Body temperature 97.5 [degF] Eddi Lynn MD Work Phone: [facility] 01-02-2025 14:14-0400 Diastolic blood pressure 77 mm[Hg] Eddi Lynn MD Work Phone: [facility] 01-02-2025 14:14-0400 Respiratory rate 17 /min Eddi Lynn MD Work Phone: [facility] 01-02-2025 14:14-0400 SaO2% (BldA) [Mass fraction] 95 % Eddi Lynn MD Work Phone: [facility] 01-02-2025 14:14-0400 Systolic blood pressure 140 mm[Hg] Eddi Lynn MD Work Phone: 8(202)211-832906 [place] [address] 01-02-2025 05:17-0400 Body mass index (BMI) [Ratio] 31.1 kg/m2 Eddi Lynn MD Work Phone: 7(718)374-128106 [place] [address] 01-02-2025 05:17-0400 Body weight 104.5 kg Eddi Lynn MD Work Phone: 5(529)991-916871 [place] [address] 12-30-2024 21:01-0400 Body temperature 98.1 [degF] Eddi Lynn MD Work Phone: 1(933)555-255406 [place] [address] 12-30-2024 21:01-0400 Diastolic blood pressure 89 mm[Hg] Eddi Lynn MD Work Phone: 6(460)224-696006 [place] [address] 12-30-2024 21:01-0400 Heart rate 91 /min Eddi Lynn MD Work Phone: 0(687)966-924806 [place] [address] 12-30-2024 21:01-0400 Respiratory rate 20 /min Eddi Lynn MD Work Phone: 8(953)245-536406 [place] [address] 12-30-2024 21:01-0400 SaO2% (BldA) [Mass fraction] 96 % Eddi Lynn MD Work Phone: [facility] 12-30-2024 21:01-0400 Systolic blood pressure 175 mm[Hg] Eddi Lynn MD Work Phone: 9(561)651-917571 [place] [address] 12-30-2024 15:48-0400 Body height 182.88 cm Eddi Lynn MD Work Phone: [facility] 12-30-2024 15:48-0400 Body mass index (BMI) [Ratio] 31.1 kg/m2 Eddi Lynn MD Work Phone: [facility] 12-30-2024 15:48-0400 Body weight 104.4 kg Eddi Lynn MD Work Phone: [facility] 12-22-2024 20:26-0400 Body temperature 98.1 [degF] Eddi Lynn MD Work Phone: [facility] 12-22-2024 20:26-0400 Diastolic blood pressure 113 mm[Hg] Eddi Lynn MD Work Phone: [facility] 12-22-2024 20:26-0400 Heart rate 75 /min Eddi Lynn MD Work Phone: [facility] 12-22-2024 20:26-0400 Respiratory rate 20 /min Eddi Lynn MD Work Phone: [facility] 12-22-2024 20:26-0400 SaO2% (BldA) [Mass fraction] 98 % Eddi Lynn MD Work Phone: [facility] 12-22-2024 20:26-0400 Systolic blood pressure 186 mm[Hg] Eddi Lynn MD Work Phone: [facility] 12-22-2024 18:52-0400 Body height 172.72 cm Eddi Lynn MD Work Phone: [facility] 12-22-2024 18:52-0400 Body mass index (BMI) [Ratio] 34.9 kg/m2 Eddi Lynn MD Work Phone: [facility] 12-22-2024 18:52-0400 Body weight 104.3 kg Eddi Lynn MD Work Phone: [facility] 12-19-2024 16:28-0400 Body temperature 97.5 [degF] Eddi Lynn MD Work Phone: [facility] 12-19-2024 16:28-0400 Diastolic blood pressure 84 mm[Hg] Eddi Lynn MD Work Phone: [facility] 12-19-2024 16:28-0400 Heart rate 77 /min Eddi Lynn MD Work Phone: 5(856)974-079071 [place] [address] 12-19-2024 16:28-0400 Respiratory rate 14 /min Eddi Lynn MD Work Phone: [facility] 12-19-2024 16:28-0400 SaO2% (BldA) [Mass fraction] 96 % Eddi Lynn MD Work Phone: [facility] 12-19-2024 16:28-0400 Systolic blood pressure 167 mm[Hg] Eddi Lynn MD Work Phone: 1(719)741-382323 [address] 12-19-2024 12:03-0400 Body mass index (BMI) [Ratio] 34.5 kg/m2 Eddi Lynn MD Work Phone: 1(405)045-928723 [address] 12-19-2024 12:03-0400 Body weight 103.1 kg Eddi Lynn MD Work Phone: 0(724)816-677223 [address] 11-26-2024 10:53-0400 Diastolic blood pressure 80 mm[Hg] Eddi Lynn MD Work Phone: 5(356)732-121823 [address] 11-26-2024 10:53-0400 Heart rate 93 /min Eddi Lynn MD Work Phone: [facility] 11-26-2024 10:53-0400 Systolic blood pressure 170 mm[Hg] Eddi Lynn MD Work Phone: 1(294)214-071071 [place] [address] 11-26-2024 10:30-0400 Body height 172.72 cm Eddi Lynn MD Work Phone: 7(073)534-309723 [address] 11-26-2024 10:30-0400 Body mass index (BMI) [Ratio] 34 kg/m2 Eddi Lynn MD Work Phone: 5(183)554-756771 [place] [address] 11-26-2024 10:30-0400 Body temperature 97.8 [degF] Eddi Lynn MD Work Phone: [facility] 11-26-2024 10:30-0400 Body weight 101.6 kg Eddi Lynn MD Work Phone: [facility] 11-26-2024 10:30-0400 Respiratory rate 15 /min Eddi Lynn MD Work Phone: [facility] 11-26-2024 10:30-0400 SaO2% (BldA) [Mass fraction] 97 % Eddi Lynn MD Work Phone: [facility] 05-28-2024 09:15-0500 Body height 172.[address] Dean Felipe MD Work Phone: [facility] 05-28-2024 09:15-0500 Body mass index (BMI) [Ratio] 34.7 kg/m2 Dr. Dean Felipe MD Work Phone: [facility] 05-28-2024 09:15-0500 Body temperature 98.4 [degF] Dr. Dean Felipe MD Work Phone: [facility] 05-28-2024 09:15-0500 Body weight 103.[address] Dean Felipe MD Work Phone: [facility] 05-28-2024 09:15-0500 Diastolic blood pressure 86 mm[Hg] Dr. Dean Felipe MD Work Phone: [facility] 05-28-2024 09:15-0500 Heart rate 86 /min Dr. Dean Felipe MD Work Phone: [facility] 05-28-2024 09:15-0500 Respiratory rate 16 /min Dr. Dean Felipe MD Work Phone: [facility] 05-28-2024 09:15-0500 SaO2% (BldA) [Mass fraction] 96 % Dr. Dean Felipe MD Work Phone: [facility] 05-28-2024 09:15-0500 Systolic blood pressure 144 mm[Hg] Dr. Dean Felipe MD Work Phone: 3(627)088-904495 [place] [address] 05-22-2024 20:02-0500 Body temperature 97.6 [degF] Dr. Dean Felipe MD Work Phone: 9(593)464-558395 [place] [address] 05-22-2024 20:02-0500 Diastolic blood pressure 90 mm[Hg] Dr. Dean Felipe MD Work Phone: 7(157)821-098477 [place] [address] 05-22-2024 20:02-0500 Heart rate 82 /min Dr. Dean Felipe MD Work Phone: 3(032)889-473877 [place] [address] 05-22-2024 20:02-0500 Respiratory rate 18 /min Dr. Dean Felipe MD Work Phone: 8(144)831-940177 [place] [address] 05-22-2024 20:02-0500 SaO2% (BldA) [Mass fraction] 96 % Dr. Dean Felipe MD Work Phone: 1(313)631-569077 [place] [address] 05-22-2024 20:02-0500 Systolic blood pressure 175 mm[Hg] Dr. Dean Felipe MD Work Phone: 3(416)717-566077 [place] [address] 05-22-2024 19:23-0500 Body mass index (BMI) [Ratio] 35.2 kg/m2 Dr. Dean Felipe MD Work Phone: 2(134)450-516577 [place] [address] 05-22-2024 19:23-0500 Body weight 105.[address] Dean Felipe MD Work Phone: 2(645)477-788795 [place] [address] 05-30-2023 09:30-0500 Body temperature 97.3 [degF] Dr. Dean Felipe Work Phone: 4(976)603-618695 [place] [address] 05-30-2023 09:30-0500 Body weight 98.[address] Dean Felipe Work Phone: 9(848)941-077395 [place] [address] 05-30-2023 09:30-0500 Diastolic blood pressure 90 mm[Hg] Dr. Dean Felipe Work Phone: 0(801)892-531477 [place] [address] 05-30-2023 09:30-0500 Heart rate 67 /min Dr. Dean Felipe Work Phone: [facility] 05-30-2023 09:30-0500 Respiratory rate 13 /min Dr. Dean Felipe Work Phone: [facility] 05-30-2023 09:30-0500 SaO2% (BldA) [Mass fraction] 99 % Dr. Dean Felipe Work Phone: [facility] 05-30-2023 09:30-0500 Systolic blood pressure 140 mm[Hg] Dr. Dean Felipe Work Phone: 5(279)814-194609 [address] 11-28-2022 08:35-0400 Body height 172.[address] Dean Felipe Work Phone: 9(857)153-791277 [place] [address] 11-28-2022 08:35-0400 Body mass index (BMI) [Ratio] 32.5 kg/m2 Dr. Dean Felipe Work Phone: 2(258)800-600577 [place] [address] 11-28-2022 08:35-0400 Body temperature 97.8 [degF] Dr. Dean Felipe Work Phone: 9(754)057-776709 [address] 11-28-2022 08:35-0400 Body weight 97.[address] Dean Felipe Work Phone: 8(888)263-716977 [place] [address] 11-28-2022 08:35-0400 Diastolic blood pressure 90 mm[Hg] Dr. Dean Felipe Work Phone: 3(607)358-812895 [place] [address] 11-28-2022 08:35-0400 Heart rate 80 /min Dr. Dean Felipe Work Phone: 8(407)380-183295 [place] [address] 11-28-2022 08:35-0400 Respiratory rate 17 /min Dr. Dean Felipe Work Phone: 7(260)265-162695 [place] [address] 11-28-2022 08:35-0400 Systolic blood pressure 148 mm[Hg] Dr. Dean Felipe Work Phone: [facility] 11-05-2022 09:48-0400 SaO2% (BldA) [Mass fraction] 94 % Dr. Dean Felipe Work Phone: [facility] 11-05-2022 09:38-0400 Body temperature 97.8 [degF] Dr. Dean Felipe Work Phone: [facility] 11-05-2022 09:38-0400 Diastolic blood pressure 83 mm[Hg] Dr. Dean Felipe Work Phone: 0(455)228-204995 [place] [address] 11-05-2022 09:38-0400 Heart rate 80 /min Dr. Dean Felipe Work Phone: 7(246)462-949795 [place] [address] 11-05-2022 09:38-0400 Respiratory rate 16 /min Dr. Dean Felipe Work Phone: 8(802)377-292995 [place] [address] 11-05-2022 09:38-0400 Systolic blood pressure 161 mm[Hg] Dr. Dean Felipe Work Phone: 5(397)490-834309 [address] 11-05-2022 07:59-0400 Inhaled oxygen flow rate 2 L/min Dr. Dean Felipe Work Phone: [facility] 11-04-2022 09:14-0400 Body temperature 98.4 [degF] Dr. Dean Felipe Work Phone: 3(283)882-177795 [place] [address] 11-04-2022 09:14-0400 Diastolic blood pressure 75 mm[Hg] Dr. Dean Felipe Work Phone: 1(465)031-647395 [place] [address] 11-04-2022 09:14-0400 Heart rate 86 /min Dr. Dean Felipe Work Phone: 0(745)408-508395 [place] [address] 11-04-2022 09:14-0400 Inhaled oxygen flow rate 2 L/min Dr. Dean Felipe Work Phone: [facility] 11-04-2022 09:14-0400 Respiratory rate 18 /min Dr. Dean Felipe Work Phone: [facility] 11-04-2022 09:14-0400 SaO2% (BldA) [Mass fraction] 98 % Dr. Dean Felipe Work Phone: [facility] 11-04-2022 09:14-0400 Systolic blood pressure 160 mm[Hg] Dr. Dean Felipe Work Phone: [facility] 11-04-2022 07:10-0400 Body height 172.[address] Dean Felipe Work Phone: [facility] 11-04-2022 07:10-0400 Body mass index (BMI) [Ratio] 33.2 kg/m2 Dr. Dean Felipe Work Phone: [facility] 11-04-2022 07:10-0400 Body weight 99.[address] Dean Felipe Work Phone: [facility] 07-27-2021 13:39-0400 Body temperature 97.8 [degF] Dr. Dean Felipe Work Phone: [facility] Work Phone: 07-27-2021 13:39-0400 Body weight 102.[address] Dean Felipe Work Phone: [facility] Work Phone: 07-27-2021 13:39-0400 Diastolic blood pressure 87 mm[Hg] Dr. Dean Felipe Work Phone: [facility] Work Phone: 07-27-2021 13:39-0400 Heart rate 91 /min Dr. Dean Felipe Work Phone: [facility] Work Phone: 07-27-2021 13:39-0400 Respiratory rate 18 /min Dr. Dean Felipe Work Phone: [facility] Work Phone: 07-27-2021 13:39-0400 SaO2% (BldA) [Mass fraction] 98 % Dr. Dean Felipe Work Phone: [facility] Work Phone: 07-27-2021 13:39-0400 Systolic blood pressure 153 mm[Hg] Dr. Dean Felipe Work Phone: [facility] Work Phone: Encounters Encounter Date Encounter Type Care Provider Facility Start: 01-12-2025 Dr. Kal Laguna DO -[facility] Work Phone: Start: 01-11-2025 Dr. Corey Pelaez DO -[facility] Work Phone: Start: 01-10-2025 Dr. Corey Pelaez DO -[facility] Work Phone: Start: 01-09-2025 Dr. Corey Pelaez DO -[facility] Work Phone: Start: 01-09-2025 ambulatory Eddi Lynn Facility:[facility] Start: 01-09-2025 Dr. Sawyer Buck MD -[facility] Start: 01-09-2025 ambulatory Katie Rosenbaum Facility :[facility] Start: 01-09-2025 End: 01-12-2025 Evaluation and management of inpatient Eddi Lynn MD Work Phone: -Progressive Care Unit Start: 01-09-2025 End: 01-12-2025 Dr. Kal Laguna DO -[facility] Care Unit Work Phone: Start: 01-02-2025 Dr. Alice Mckeon DO -[facility] Work Phone: Start: 01-01-2025 Dr. Alice Mckeon DO -[facility] Work Phone: Start: 12-31-2024 Dr. Alice Mckeon DO -[facility] Work Phone: Start: 12-30-2024 ambulatory Jorge aVsquez ty:[facility] Start: 12-30-2024 End: 01-02-2025 Evaluation and management of inpatient Dr. Jorge Herrera DO -Intensive Care Unit Work Phone: Start: 12-30-2024 End: 01-02-2025 Dr. Alice Mckeon DO -[facility] Un it Work Phone: Start: 12-25-[address] Eddi Lynn MD -[facility] Start: 12-25-2024 End: 12-25-2024 Dr. Eddi Lynn MD -[facility] Start: 12-25-2024 End: 12-25-2024 ambulatory Eddi Lynn Facility:[facility] Start: 12-22-2024 End: 12-22-2024 Dr. Chet Grover MD -Emergency Departmen t Work Phone: Start: 12-22-2024 End: 12-22-2024 Emergency department patient visit Eddi Lynn MD Work Phone: -Emergency Department Work Phone: Start: 12-19-2024 End: 12-19-2024 Dr. Lory Wolff DO -Emergency Departms nt Work Phone: Start: 12-19-2024 End: 12-19-2024 Emergency department patient visit Dr. Lory Wolff DO -Emergency Department Work Phone: Start: 11-26-2024 End: 11-26-[address] Vini Feliciano MD -[facility] Work Phone: Start: 11-26-2024 End: 11-26-2024 Dr. Vini Feliciano MD -[facility] Work Phone: Start: 11-26-2024 End: 11-26-2024 ambulatory Eddi Lynn MD Work Phone: -[facility] Start: 10-15-2024 End: 10-15-2024 ambulatory Eddi Lynn MD Work Phone: -[facility] [place] Start: 10-15-2024 End: 10-15-2024 Patient encounter procedure Aydee Willams [employer] SALESPERSON-C -[facility] [place] Work Phone: Start: 10-15-2024 End: 10-15-2024 Aydee Willams [employer] SALESPERSON-C -[facility] [place] Work Phone: Start: 10-15-2024 End: 10-15-2024 ambulatory Aydee Willams [employer] Facility:[facility] Start: 07-15-2024 End: 07-15-[address] Eddi Lynn MD -[facility] [place] Work Phone: Start: 07-15-2024 End: 07-15-2024 ambulatory [facility] Facility:[facility] Start: 06-18-2024 End: 06-18-[address] Dean Felipe MD Work Phone: [facility] Work Phone: Start: 06-18-2024 End: 06-18-[address] Vini Feliciano MD -Laboratory, [place] Work Phone: Start: 06-18-2024 End: 06-18-2024 ambulatory Vini Feliciano Facility:[facility] Start: 05-29-2024 End: 05-29-[address] Dean Felipe MD Work Phone: [facility] Work Phone: Start: 05-29-2024 End: 05-29-[address] Eddi Lynn MD -Radiology, [place] Work Phone: Start: 05-28-2024 End: 05-28-[address] Vini Feliciano MD -[facility] Work Phone: Start: 05-28-2024 End: 05-29-2024 ambulatory [facility] Facility:[facility] Start: 05-22-2024 End: 05-22-2024 Emergency department patient visit Dr. Chet Grover MD -Emergency Department Work Phone: Start: 06-12-2023 End: 06-12-[address] Dean Felipe Work Phone: [facility] Work Phone: Start: 06-12-2023 End: 06-12-[address] Dean Felipe Work Phone: [facility] Work Phone: Start: 05-30-2023 End: 05-30-[address] Dean Felipe Work Phone: [facility] Work Phone: Start: 05-01-2023 End: 05-01-2023 ambulatory [facility] Work Phone: Start: 05-01-2023 End: 05-01-2023 Patient encounter procedure [facility] y Office 3rd Flr Start: 12-19-2022 End: 12-19-[address] Dean Felipe Work Phone: [facility] Work Phone: Start: 12-19-2022 End: 12-19-[address] [facility] Start: 11-28-2022 End: 11-28-[address] Dean Felipe Work Phone: [facility] Work Phone: Start: 11-05-2022 Non-patient / Non-visit Dr. Dean Felipe Work Phone: [facility] Work Phone: Start: 11-04-2022 Non-patient / Non-visit Dr. Dean Felipe Work Phone: [facility] Work Phone: Start: 11-04-2022 End: 11-04-2022 Evaluation and management of inpatient [facility]. Dean Felipe [facility] Work Phone: Start: 10-25-2022 End: 10-25-2022 ambulatory [facility] Work Phone: Start: 10-25-2022 End: 10-25-2022 Patient encounter procedure [facility] y Office 3rd Flr Start: 05-25-2022 End: 05-25-2022 ambulatory [facility] Work Phone: Start: 05-25-2022 End: 05-25-2022 [facility] Start: 10-12-2021 End: 10-12-[address] [facility]ipe [facility] Start: 09-28-2021 End: 09-28-[address] Dean Felipe Work Phone: [facility] Start: 07-27-2021 End: 07-27-[address] Dean Felipe Work Phone: [facility] Start: 07-13-2021 End: 07-13-2021 [facility] [place] Start: 04-13-2021 End: 04-13-2021 Patient encounter procedure [facility] Office 3rd Flr Procedures Date Procedure Procedure Detail Performing Clinician Start: 01-11-2025 Plain chest X-ray Jelani Lynn MD Work Phone: Start: 01-09-2025 Estimated creatinine clearance Eddi Lynn MD Work Phone: Start: 01-09-2025 Mean corpuscular hem oglobin concentration determination Eddi Lynn MD Work Phone: Start: 01-09-2025 Neutrophil count Eddi Lynn MD Work Phone: Start: 01-09-2025 Nucleated red blood cell count procedure Eddi Lynn MD Work Phone: Start: 01-09-2025 Platelet mean volume determination Eddi Lynn MD Work Phone: Start: 01-08-2025 D-dimer assay, quantitative Eddi Lynn MD Work Phone: Start: 01-08-2025 CT angiography of ch est with contrast Eddi Lynn MD Work Phone: Start: 01-08-2025 Radiologic exam ches t 2 views Eddi Lynn MD Work Phone: Start: 01-08-2025 Ct abdomen & pelvis w/contrast material Eddi Lynn MD Work Phone: Start: 01-08-2025 Urine microscopy: red cells Eddi Lynn MD Work Phone: Start: 01-08-2025 Urnls dip stick/tabl et reagent auto microscopy Eddi Lynn MD Work Phone: Start: 01-08-2025 Triacylglycerol lipa se measurement Eddi Lynn MD Work Phone: Start: 01-02-2025 Estimated creatinine clearance Eddi Lynn MD Work Phone: Start: 01-02-2025 Mean corpuscular hem oglobin concentration determination Eddi Lynn MD Work Phone: Start: 01-02-2025 Platelet mean volume determination Eddi Lynn MD Work Phone: Start: 01-01-2025 Serum inorganic phos phate measurement Eddi Lynn MD Work Phone: Start: 12-31-2024 Neutrophil count Eddi Lynn MD Work Phone: Start: 12-31-2024 Nucleated red blood cell count procedure Eddi Lynn MD Work Phone: Start: 12-31-2024 Total cholesterol:HD L ratio measurement Eddi Lynn MD Work Phone: Start: 12-31-2024 Triglycerides measurement Eddi Lynn MD Work Phone: Start: 12-30-2024 Lactic acid measurement Eddi Lynn MD Work Phone: Start: 12-30-2024 Osmolality measureme nt, serum Eddi Lynn MD Work Phone: Start: 12-30-2024 Phenobarbital measurement Eddi Lynn MD Work Phone: Start: 12-30-2024 Venous oxygen satura tion measurement Eddi Lynn MD Work Phone: Start: 12-30-2024 Ct abdomen & pelvis w/contrast material Eddi Lynn MD Work Phone: Start: 12-30-2024 Urine microscopy: red cells Eddi Lynn MD Work Phone: Start: 12-30-2024 Urnls dip stick/tabl et reagent auto microscopy Eddi Lynn MD Work Phone: Start: 12-30-2024 Calculation of inter national normalized ratio Eddi Lynn MD Work Phone: Start: 12-30-2024 Estimated creatinine clearance Eddi Lynn MD Work Phone: Start: 12-30-2024 CT cervical spine wi thout contrast Eddi Lynn MD Work Phone: Start: 12-30-2024 CT of head without contrast Eddi Lynn MD Work Phone: Start: 12-30-2024 Blood culture Eddi quintana MD Work Phone: Start: 12-30-2024 Urine culture Eddi quintana MD Work Phone: Start: 12-25-2024 Urine culture Eddi quintana MD Work Phone: Start: 12-19-2024 Urine microscopy: red cells Eddi Lynn MD Work Phone: Start: 12-19-2024 Urnls dip stick/tabl et reagent auto microscopy Eddi Lynn MD Work Phone: Start: 12-19-2024 CT of head without contrast Eddi Lynn MD Work Phone: Start: 12-19-2024 Estimated creatinine clearance Edid Lynn MD Work Phone: Start: 12-19-2024 Mean corpuscular hem oglobin concentration determination Eddi Lynn MD Work Phone: Start: 12-19-2024 Neutrophil count Eddi Lynn MD Work Phone: Start: 12-19-2024 Nucleated red blood cell count procedure Eddi Lynn MD Work Phone: Start: 12-19-2024 Platelet mean volume determination Eddi Lynn MD Work Phone: Start: 10-15-2024 Urnls dip stick/tabl et reagent auto microscopy Eddi Lynn MD Work Phone: Start: 05-29-2024 Plain x-ray of pelvi s and lower extremity Dr. Dean Felipe MD Work Phone: Start: 11-04-[address] Daen Felipe Work Phone: Start: 11-04-2022 Plain chest X-ray Dr. Lucinda Felipe Work Phone: Plan of Treatment Date Care Activity Detail Author Start: 01-12-2025 Patient discharge [facility] Start: 01-12-2025 -[facility] Work Phone: Start: 01-11-2025 -[facility] Work Phone: Start: 01-11-2025 Plain chest X-ray [facility] Start: 01-10-2025 -[facility] Work Phone: Start: 01-09-2025 -[facility] Work Phone: Start: 01-09-2025 -[facility] Start: 01-09-2025 Following clinical pathway protocol [facility] Start: 01-09-2025 Assessment of risk of venous thromboembolism [facility] Start: 01-09-2025 Insertion of catheter into peripheral vein [facility] Start: 01-09-2025 Measuring intake and output [facility] Start: 01-09-2025 Oxygen therapy [facility] Start: 01-09-2025 Providing care according to standard [facility] Start: 01-09-2025 Provision of activity privileges [facility] Start: 01-09-2025 Referral for physical therapy [facility] Start: 01-09-2025 Referral to occupational therapist [facility] Start: 01-09-2025 [facility] Start: 01-09-2025 Admission procedure [facility] Start: 01-09-2025 End: 01-12-2025 -[facility] Work Phone: Start: 01-09-2025 Patient referral to dietitian [facility] Start: 01-08-2025 CT angiography of chest with contrast [facility] Start: 01-08-2025 Radiologic exam chest 2 views [facility] Start: 01-08-2025 Ct abdomen & pelvis w/contrast material [facility] Start: 01-08-2025 [facility] Start: 01-02-2025 Patient discharge [facility] Start: 12-31-2024 [facility] Start: 12-30-2024 Application of intermittent pneumatic compression device [facility] Start: 12-30-2024 Assessment of risk of venous thromboembolism [facility] Start: 12-30-2024 Care regimes management [facility] Start: 12-30-2024 Elevation of head of bed [facility] Start: 12-30-2024 Insertion of catheter into peripheral vein [facility] Start: 12-30-2024 Measuring intake and output [facility] Start: 12-30-[address] [facility] Start: 12-30-2024 Oxygen therapy [facility] Start: 12-30-2024 Providing care according to standard [facility] Start: 12-30-2024 Referral for physical therapy [facility] Start: 12-30-2024 Referral to occupational therapist [facility] Start: 12-30-2024 Referral to service [facility] Start: 12-30-2024 Seizure precautions [facility] Start: 12-30-2024 Vital signs measurements [facility] Start: 12-30-2024 End: 12-30-2024 [facility] Start: 12-30-2024 Following clinical pathway protocol [facility] Start: 12-30-2024 Gas panel - Venous blood [facility] Start: 12-30-2024 Lactic acid measurement [facility] Start: 12-30-2024 Measurement of substance [facility] Start: 12-30-2024 Osmolality measurement, serum [facility] Start: 12-30-2024 Osmolality of Urine [facility] Start: 12-30-[address] [facility] Start: 12-30-2024 Thyroid stimulating hormone measurement [facility] Start: 12-30-2024 Verification routine [facility] Start: 12-30-2024 Admission procedure [facility] Start: 12-30-2024 Hospital admission, emergency, from emergency room, medical nature [facility] Start: 12-30-2024 End: 12-30-2024 [facility] Start: 12-30-2024 Bacteria identified in Blood by Culture Blood Culture [facility] Start: 12-30-2024 Bacteria identified in Urine by Culture Urine Culture [facility] Start: 12-30-2024 Consultation [facility] Start: 12-30-2024 Patient referral to dietitian [facility] Start: 12-22-2024 End: 12-22-2024 Emergency department patient visit [facility] Work Phone: Start: 12-19-2024 [facility] Start: 11-26-[address] [facility] Start: 11-26-2024 Complete blood count [facility] Start: 11-26-2024 Measurement of substance [facility] Start: 11-26-[address] [facility] Start: 11-26-2024 Vitamin D, 1,25-dihydroxy measurement [facility] Start: 05-22-2024 [facility] Start: 11-05-2022 Patient discharge [facility] Start: 11-04-2022 Following clinical pathway protocol [facility] Start: 11-04-2022 Airborne precautions [facility] Start: 11-04-2022 Assessment of risk of venous thromboembolism [facility] Start: 11-04-2022 Care regimes management [facility] Start: 11-04-2022 Catheterization of vein [facility] Start: 11-04-2022 Inhalation therapy procedure [facility] Start: 11-04-2022 Insertion of catheter into peripheral vein [facility] Start: 11-04-[address] [facility] Start: 11-04-2022 Oxygen therapy [facility] Start: 11-04-2022 Providing care according to standard [facility] Start: 11-04-2022 Provision of activity privileges [facility] Start: 11-04-2022 Referral to occupational therapist [facility] Start: 11-04-2022 Referral to service [facility] Start: 11-04-2022 [facility] Start: 11-04-2022 Urinalysis complete panel - Urine [facility] Start: 11-04-2022 Admission procedure [facility] Start: 11-04-2022 [facility] Start: 11-04-2022 [facility] Start: 09-28-2021 Measurement of substance [facility] Work Phone: Alanine aminotransfe rase [Enzymatic activity/volume] in Serum or Plasma [facility] Albumin [Mass/volume ] in Serum or Plasma [facility] Alkaline phosphatase [Enzymatic activity/volume] in Serum or Plasma [facility] Anion gap in Serum or Plasma [facility] Basic metabolic 2008 panel with ionized calcium - Serum or Plasma [facility] Bilirubin, total measurement [facility] Blood ammonia measurement [facility] BUN/Creatinine ratio [facility] Calcium [Mass/volume ] in Serum or Plasma [facility] Carbon dioxide, tota l [Moles/volume] in Central venous blood [facility] Complete blood count [facility] Comprehensive metabo lic 1999 panel - Serum or Plasma [facility] metabo lic 1999 panel - Serum or Plasma [facility] Creatinine [Mass/vol ume] in Serum or Plasma [facility] Folate [Moles/volume ] in Serum or Plasma [facility] Glucose [Mass/volume ] in Serum or Plasma [facility] Magnesium measurement [facility] Measurement of renal function [facility] Measurement of substance [facility] Work Phone: Measurement of substance [facility] Patient Education [facility] Work Phone: Patient referral [facility] Work Phone: Phenobarbital measurement [facility] Potassium measurement [facility] Serum chloride measurement [facility] Sodium measurement [facility] Total protein measurement [facility] Urea nitrogen [Mass/ volume] in Serum or Plasma [facility] Urine culture [facility] Payers Date Payer Category Payer Self-pay [id number] 2023 Medicaid [id number] 2023 Medicare [id number] Unknown [id number] 2.16.8 [id number] Unknown [id number] 2.16.8 [id number] Unknown [id number] 2.16.8 40.1.944289.3.579.2.462 Unknown [id number] 2.16.8 40.1.993165.3.579.2.462 Unknown [id number] 2.16.8 40.1.036515.3.579.2.462 Unknown [id number] 2.16.8 40.1.323788.3.579.2.462 Unknown [id number] 2.16.8 40.1.904772.3.579.2.462 Unknown [id number] 2.16.8 40.1.263256.3.579.2.462 Unknown [id number] 2.16.8 40.1.750242.3.579.2.462 Unknown [id number] 2.16.8 40.1.849869.3.579.2.462 Unknown [id number] 2.16.8 40.1.679998.3.579.2.462 Unknown [id number] 2.16.8 40.1.233999.3.579.2.462 Unknown [id number] 2.16.8 40.1.380211.3.579.2.462 Unknown [id number] 2.16.8 40.1.315005.3.579.2.462 Unknown [id number] 2.16.8 40.1.376113.3.579.2.462 Unknown [id number] 2.16.8 40.1.983513.3.579.2.462 Unknown [id number] 2.16.8 40.1.056461.3.579.2.462 Unknown [id number] 2.16.8 40.1.974608.3.579.2.462 Unknown [id number] 2.16.8 40.1.893515.3.579.2.462 Unknown [id number] 2.16.8 40.1.584275.3.579.2.462 Unknown [id number] 2.16.8 40.1.350840.3.579.2.462 Unknown [id number] 2.16.8 40.1.946710.3.579.2.462 Social History Date Type Detail Facility Start: 02-01-2021 End: 05-30-2023 Tobacco smoking status NHIS Unknown if ever smoked [facility] Start: 1955 Sex Assigned At Male W [facility] Start: 05-22-2024 End: 01-09-2025 Tobacco smoking status NHIS Never smoked tobacco (finding) [facility] Start: 06-09-2024 End: 06-22-2024 Sex Male (finding) [facility] Sex [facility] Goals Date Patient Goal Desired Activity /State Functional Status Date Assessment Result Facility 01-12-2025 Functional status Ambulates [facility] Work Phone: 01-02-2025 Functional status Ambulates [facility] Work Phone: 11-04-2022 Functional status Chair [facility] Work Phone: Mental Status Date Assessment Result Facility 01-12-2025 Cognitive function Voice/Name [facility] Work Phone: 01-02-2025 Cognitive function Voice/Name [facility] Work Phone: 12-22-2024 Cognitive function Awake [facility] Work Phone: 12-19-2024 Cognitive function Awake [facility] Work Phone: 11-05-2022 Cognitive function Voice/Name [facility] Work Phone: 11-04-2022 Cognitive function Cooperative [facility] Work Phone: Clinical Notes 11-04-2022 to 01-12-2025 Note Date & Type Note Facility 01-12-2025 Discharge summary Note Date/Time January 12, 2025 2:44pm [facility] Medical Records Department [address] [place] [address] Discharge Summary 01/12/25 1234 MR#: [id number] Acct: [id number] Name: NAYLA BENNETT Rep #:[id number] : 1955 69 From: Kal wade DO PCP: Dr. Eddi Lynn MD Status:ADM IN Location: [place] [address] Providers Date of Admission: 01/09/25 Date of Discharge: 01/12/25 Primary Care Physician: Eddi Lynn MD Reason For Visit: ACUTE CHF EXACERBATION Diagnosis Discharge Diagnosis (1) CHF (congestive heart failure): Status: Acute Code(s): I50.9 - Heart failure, unspecified Medications at Discharge Home Medications loratadine 10 mg tablet 10 mg PO DAILY allergies 07/16/16 atorvastatin 40 mg tablet 40 mg PO QHS cholesterol 11/27/19 metformin 1,000 mg tablet 1,000 mg PO BID diabetes 11/27/19 fluticasone propionate 50 mcg/actuation nasal spray,suspension 1 spray intranasal QHS 12/02/19 tamsulosin 0.4 mg capsule 0.4 mg PO DAILY prostate 12/02/19 levothyroxine 50 mcg tablet 50 mcg PO QDAY thyroid 11/28/23 cholecalciferol (vitamin D3) 1,250 mcg (50,000 unit) capsule 1,250 mcg PO QMONTHvitamin #1 cap 05/28/24 chlorhexidine gluconate 0.12 % mouthwash 15 ml buccal BID mouth sores 11/26/24 olmesartan 40 mg tablet 40 mg PO QAM blood pressure #30 tabs 11/26/24 phenobarbital 60 mg tablet 120 mg (2 x 60 mg) PO QHS seizures #56 tabs 11/26/24 amlodipine 10 mg tablet (Norvasc) 10 mg PO DAILY blood pressure #30 tabs 12/19/24 beta carotene 30 mg capsule 30 mg PO DAILY supplement 12/22/24 carvedilol 25 mg tablet 25 mg PO BIDCM blood pressure #60 tabs 01/02/25 hydralazine 50 mg tablet 50 mg PO TID blood pressure #90 tabs 01/02/25 sodium chloride 1,000 mg soluble tablet 1,000 mg PO TID low sodium #90 tabs 01/02/25 cyanocobalamin (vitamin B-12) 1,000 mcg sublingual tablet 1,000 mcg sublingual DAILY supplement 01/08/25 levetiracetam 750 mg tablet 1,500 mg PO BID seizures 01/08/25 omega-3 fatty acids-fish oil 300 mg-1,000 mg capsule 1 cap PO BID supplement 01/08/25 polyethylene glycol 3350 17 gram/dose oral powder 17 g PO BID constipation 01/08/25 risperidone 3 mg tablet (Risperdal) 3 mg PO QHS 01/08/25 furosemide 40 mg tablet 40 mg PO DAILY 30 days #30 tabs 01/12/25 Hospital Course Operations None Procedures EKG, Transthoracic echo and - (Chest x-ray x 2, CTA chest, CT abdomen pelvis) Summary of Care Provided Minutes Spent on Discharge: 41 Hospital Course: Patient is a 69-year-old male who presented to [facility] ED on 01/09/2025 with shortness of breath. Hospital course as noted below. Patient discharged back to [facility] in stable condition on 01/12. 1. Acute HFpEF with hypoxia, improved ? Presented with worsening shortness of breath. CTA chest with no PE, did show moderate cardiomegaly with mild bilateral pleural effusions and moderate interstitial pulmonary congestion. BNP elevated at 1535. Echo in 01/09 showed EF 65%, stage III diastolic dysfunction, moderate concentric LV hypertrophy, mild enlarged LA, no other concerning findings. Suspect HFpEF exacerbation was secondary to poorly controlled hypertension. Was hypoxic requiring 2 L nasal cannula on admission, weaned back to room air at rest by discharge. Diuresed well with IV Lasix while inpatient. Will discharge on p.o. Lasix 40 mg daily inaddition to antihypertensive regimen as below. Will plan to repeat BMP in 5 to 7 days to monitor kidney function. 2. Hypertension/hyperlipidemia ? Hypertensive to the 200s systolic on admit. Hypertension improved during hospitalization with IV diuresis. Starting p.o. Lasix on discharge as above. Otherwise continue home amlodipine, Coreg, hydralazine, and olmesartan. Continue home statin. 3. Chronic hyponatremia ? Baseline sodium 128-132. Remained stable at baseline during hospitalization. Continue home sodium chloride tablets. 4. Autism with intellectual impairment and developmental delay ? Case management followed. Patient lives in a [facility], is nonverbal at baseline. Complicated hospital course and care. Patient stable for discharge back to [facility] on 01/12. Continue home Risperdal. Chronic medical conditions: ? Class I obesity: BMI 33 on admit. Complicated hospital course and care. ? Type 2 diabetes mellitus: Treated with sliding scale insulin with meals while inpatient with adequate glucose control. Okay to resume home metformin on discharge. ? Hypothyroidism: Continue home Synthroid. ? BPH with obstructive symptoms: Continue home Flomax. ? Seizure disorder: Continue home Keppra and phenobarbital. Total clinical time spent by myself addressing the patient's medical issues, reviewing all the data, and collaborating with patient's care team: 41 minutes. Physical Exam Narrative alert and no apparent distress Constitutional Narrative: Patient appears older than his stated age, he is nonverbal and does not follow commands or respond to speech General Appearance: well developed HEENT normocephalic, head/scalp atraumatic and moist oral mucous membranes Eyes PERRL, EOMs intact bilaterally and conjunctivae normal Neck no JVD and thyroid normal General: trachea midline Resp normal respiratory effort, no retractions, no use of accessory muscles and clearto auscultation bilaterally Auscultation: Negative for rales, rhonchi or wheezes Cardio regular rate, regular rhythm, S1 normal heart sound, S2 normal heart sound, no murmurs, no rub and no gallops GI normal to inspection, nondistended, normoactive bowel sounds, soft to palpation,non-tender and non-distended Extremity no clubbing, cyanosis or edema Skin no rashes or lesions noted General Skin Exam: no breakdown Neuro CN's II-XII intact bilaterally Neuro Narrative: Patient is nonverbal and does not respond to commands or conversation Sensorium / Orientation: awake and alert Psych Psych Narrative: Patient is nonverbal and does not respond to commands or conversation Weight / BMI Weight Weight: 107 kg Body Mass Index (BMI) 33.8 ABG / Lab / Microbiology Data 01/09/25 04:58 01/09/25 04:58 D/C Instructions DC O2, CPAP, BIPAP Needs Home O2 Discharge instructions: No Meaningful Use Info Meaningful Use Meaningful Use Diagnoses (Choose all that apply): CHF CHF TOÑO/ARB ordered at discharge?: Yes Documented LVEF (%): 65 Discharge Plan Admission Admit Date/Time: 01/09/25 00:01 Primary Reason for Your Visit: Shortness of breath Attending Provider: Kal Laguna Primary Care Provider: Eddi Lynn Consulting Providers: Katie Rosenbaum; Corey Pelaez Instructions Additional Instructions / Restrictions: Start taking Lasix 40 mg daily. Please have a repeat BMP drawn in 5 to 7 days to monitor kidney function. Discharge Orders/Prescriptions Prescriptions: New furosemide 40 mg Tablet 40 mg PO DAILY 30 Days Qty: 30 0RF Continued metformin 1,000 mg tablet 1,000 mg PO BID atorvastatin 40 mg tablet 40 mg PO QHS fluticasone propionate 50 mcg/actuation spray,suspension 1 spray INTRANASAL QHS Rx Instructions: administer into each nostril tamsulosin 0.4 mg capsule 0.4 mg PO DAILY chlorhexidine gluconate 0.12 % mouthwash 15 ml BUCCAL BID levothyroxine 50 mcg tablet 50 mcg PO QDAY cholecalciferol (vitamin D3) 1,250 mcg (50,000 unit) capsule 1,250 mcg PO QMONTH Qty: 1 7RF Patient Comments: TAKES ON THE OF EACH MONTH olmesartan 40 mg tablet 40 mg PO QAM Qty: 30 6RF phenobarbital 60 mg tablet 120 mg PO QHS Qty: 56 5RF loratadine 10 MG tablet 10 mg PO DAILY beta carotene 30 mg capsule 30 mg PO DAILY carvedilol 25 mg Tablet 25 mg PO BIDCM Qty: 60 2RF hydralazine 50 mg Tablet 50 mg PO TID Qty: 90 2RF sodium chloride 1,000 mg Tablet,Soluble 1,000 mg PO TID Qty: 90 0RF amlodipine [Norvasc] 10 mg tablet 10 mg PO DAILY Qty: 30 0RF cyanocobalamin (vitamin B-12) 1,000 mcg tablet, sublingual 1,000 mcg sublingual DAILY levetiracetam 750 mg tablet 1,500 mg PO BID polyethylene glycol 3350 17 gram/dose powder 17 g PO BID Rx Instructions: MIX IN 4-8OZ WATER omega-3 fatty acids-fish oil 300-1,000 mg capsule 1 cap PO BID risperidone [Risperdal] 3 mg tablet 3 mg PO QHS Other Ambulatory Orders: Basic Metabolic Profile (BMP) (Routine) Timeframe: 5 Days Facility: [facility] - Location: Laboratory Ordered By: Dr. Kal Laguna Referrals / Follow Up: Eddi Lynn MD [Primary Care Provider, Family Practice] Disposition Disposition (needs filled in before D/C Order can be placed): NonSkilled NH/Intermed Care Charges/Coding Visit Charges Inpatient E&M: 09479 Disch Hosp >30min 01/12/25 1344 <Electronically signed by Kal Laguna DO> Cosigner Signature (if applicable): CC: Dr. Kal Laguna DO; Dr. Eddi Lynn MD~ Signed [facility] Work Phone: 1(786) 951-454410-20-2025 Discharge summary Author Kal Laguna [facility] Note Date/Time January 12, 2025 2 :17pm [facility] Medical Records Department [address] [place] [address] Instructions for Home/Discharge Instructions 01/12/25 1233 MR#: [id number] Acct: [id number] Name: NAYLA BENNETT Rep #:[id number] : 1955 69 From: Kal wade DO PCP: Dr. Eddi Lynn MD Status:ADM IN Discharge Instructions DC O2, CPAP, BIPAP needs Home O2 Discharge instructions: No Dressing / Incision Discharge Activity: No Restrictions Follow Up Care Test Results: Test results from this visit will be discussed in further detail at your follow- up appointment, if applicable. Discharge Plan Admission Admit Date/Time: 01/09/25 00:01 Primary Reason for Your Visit: Shortness of breath Attending Provider: Kal Laguna Primary Care Provider: Eddi Lynn Consulting Providers: Katie Rosenbaum; Corey Pelaez Instructions Additional Instructions / Restrictions: Start taking Lasix 40 mg daily. Please have a repeat BMP drawn in 5 to 7 days to monitor kidney function. Discharge Orders/Prescriptions Prescriptions: New furosemide 40 mg Tablet 40 mg PO DAILY 30 Days Qty: 30 0RF Continued metformin 1,000 mg tablet 1,000 mg PO BID atorvastatin 40 mg tablet 40 mg PO QHS fluticasone propionate 50 mcg/actuation spray,suspension 1 spray INTRANASAL QHS Rx Instructions: administer into each nostril tamsulosin 0.4 mg capsule 0.4 mg PO DAILY chlorhexidine gluconate 0.12 % mouthwash 15 ml BUCCAL BID levothyroxine 50 mcg tablet 50 mcg PO QDAY cholecalciferol (vitamin D3) 1,250 mcg (50,000 unit) capsule 1,250 mcg PO QMONTH Qty: 1 7RF Patient Comments: TAKES ON THE 20TH OF EACH MONTH olmesartan 40 mg tablet 40 mg PO QAM Qty: 30 6RF phenobarbital 60 mg tablet 120 mg PO QHS Qty: 56 5RF loratadine 10 MG tablet 10 mg PO DAILY beta carotene 30 mg capsule 30 mg PO DAILY carvedilol 25 mg Tablet 25 mg PO BIDCM Qty: 60 2RF hydralazine 50 mg Tablet 50 mg PO TID Qty: 90 2RF sodium chloride 1,000 mg Tablet,Soluble 1,000 mg PO TID Qty: 90 0RF amlodipine [Norvasc] 10 mg tablet 10 mg PO DAILY Qty: 30 0RF cyanocobalamin (vitamin B-12) 1,000 mcg tablet, sublingual 1,000 mcg sublingual DAILY levetiracetam 750 mg tablet 1,500 mg PO BID polyethylene glycol 3350 17 gram/dose powder 17 g PO BID Rx Instructions: MIX IN 4-8OZ WATER omega-3 fatty acids-fish oil 300-1,000 mg capsule 1 cap PO BID risperidone [Risperdal] 3 mg tablet 3 mg PO QHS Other Ambulatory Orders: Basic Metabolic Profile (BMP) (Routine) Timeframe: 5 Days Facility: [facility] - Location: Laboratory Ordered By: Dr. Kal Laguna Referrals / Follow Up: Eddi Lynn MD [Primary Care Provider, Family Practice] Disposition Disposition (needs filled in before D/C Order can be placed): NonSkilled NH/Intermed Care 01/12/25 1317<Electronically signed by Kal Laguna DO>Kal Laguna DO CC: Dr. Eddi Lynn MD; Dr. Corey Pelaez DO; Dr. Katie Rosenbaum MD ~ Signed [facility] Work Phone: 1(654) 991-255910-20-2025 Hospital Discharge instructionsAdditional Instructions Start taking Lasix 40 mg daily. Please have a repeat BMP drawn in 5 to 7 days to monitor kidney function. Date of Discharge: 01/12/25[facility] Work Phone: 1(939) 954-233610-20-2025 [facility] Medical Records Department [address] [place] [address] Discharge Summary 01/12/25 1234 MR#: [id number] Acct: [id number] Name: NAYLA BENNETT Rep #: [id number] : 1955 69 From: Kal Laguna DO PCP: Dr. Eddi Lynn MD Status:ADM IN Location: [place] [id number] Providers Date of Admission: 01/09/25 Date of Discharge: 01/12/25 Primary Care Physician: Eddi Lynn MD Reason For Visit: ACUTE CHF EXACERBATION Diagnosis Discharge Diagnosis (1) CHF (congestive heart failure): Status: Acute Code(s): I50.9 - Heart failure, unspecified Medications at Discharge Home Medications loratadine 10 mg tablet 10 mg PO DAILY allergies 07/16/16 atorvastatin 40 mg tablet 40 mg PO QHS cholesterol 11/27/19 metformin 1,000 mg tablet 1,000 mg PO BID diabetes 11/27/19 fluticasone propionate 50 mcg/actuation nasal spray,suspension 1 spray intranasal QHS 12/02/19 tamsulosin 0.4 mg capsule 0.4 mg PO DAILY prostate 12/02/19 levothyroxine 50 mcg tablet 50 mcg PO QDAY thyroid 11/28/23 cholecalciferol (vitamin D3) 1,250 mcg (50,000 unit) capsule 1,250 mcg PO QMONTH vitamin #1 cap 05/28/24 chlorhexidine gluconate 0.12 % mouthwash 15 ml buccal BID mouth sores 11/26/24 olmesartan 40 mg tablet 40 mg PO QAM blood pressure #30 tabs 11/26/24 phenobarbital 60 mg tablet 120 mg (2 x 60 mg) PO QHS seizures #56 tabs 11/26/24 amlodipine 10 mg tablet (Norvasc) 10 mg PO DAILY blood pressure #30 tabs 12/19/24 beta carotene 30 mg capsule 30 mg PO DAILY supplement 12/22/24 carvedilol 25 mg tablet 25 mg PO BIDCM blood pressure #60 tabs 01/02/25 hydralazine 50 mg tablet 50 mg PO TID blood pressure #90 tabs 01/02/25 sodium chloride 1,000 mg soluble tablet 1,000 mg PO TID low sodium #90 tabs 01/02/25 cyanocobalamin (vitamin B-12) 1,000 mcg sublingual tablet 1,000 mcg sublingual DAILY supplement 01/08/25 levetiracetam 750 mg tablet 1,500 mg PO BID seizures 01/08/25 omega-3 fatty acids-fish oil 300 mg-1,000 mg capsule 1 cap PO BID supplement 01/08/25 polyethylene glycol 3350 17 gram/dose oral powder 17 g PO BID constipation 01/08/25 risperidone 3 mg tablet (Risperdal) 3 mg PO QHS 01/08/25 furosemide 40 mg tablet 40 mg PO DAILY 30 days #30 tabs 01/12/25 Hospital Course Operations None Procedures EKG, Transthoracic echo and - (Chest x-ray x 2, CTA chest, CT abdomen pelvis) Summary of Care Provided Minutes Spent on Discharge: 41 Hospital Course: Patient is a 69-year-old male who presented to [facility] ED on 01/09/2025 with shortness of breath. Hospital course as noted below. Patient discharged back to [facility] in stable condition on 01/12. 1. Acute HFpEF with hypoxia, improved ??? Presented with worsening shortness of breath. CTA chest with no PE, did show moderate cardiomegaly with mild bilateral pleural effusions and moderate interstitial pulmonary congestion. BNP elevated at 1535. Echo in 01/09 showed EF 65%, stage III diastolic dysfunction, moderate concentric LV hypertrophy, mild enlarged LA, no other concerning findings. Suspect HFpEF exacerbation was secondary to poorly controlled hypertension. Was hypoxic requiring 2 L nasal cannula on admission, weaned back to room air at rest by discharge. Diuresed well with IV Lasix while inpatient. Will discharge on p.o. Lasix 40 mg daily in addition to antihypertensive regimen as below. Will plan to repeat BMP in 5 to 7 days to monitor kidney function. 2. Hypertension/hyperlipidemia ??? Hypertensive to the 200s systolic on admit. Hypertension improved during hospitalization with IV diuresis. Starting p.o. Lasix on discharge as above. Otherwise continue home amlodipine, Coreg, hydralazine, and olmesartan. Continue home statin. 3. Chronic hyponatremia ??? Baseline sodium 128-132. Remained stable at baseline during hospitalization. Continue home sodium chloride tablets. 4. Autism with intellectual impairment and developmental delay ??? Case management followed. Patient lives in a [facility], is nonverbal at baseline. Complicated hospital course and care. Patient stable for discharge back to [facility] on 01/12. Continue home Risperdal. Chronic medical conditions: ??? Class I obesity: BMI 33 on admit. Complicated hospital course and care. ??? Type 2 diabetes mellitus: Treated with sliding scale insulin with meals while inpatient with adequate glucose control. Okay to resume home metformin on discharge. ??? Hypothyroidism: Continue home Synthroid. ??? BPH with obstructive symptoms: Continue home Flomax. ??? Seizure disorder: Continue home Keppra and phenobarbital. Total clinical time spent by myself addressing the patient's medical issues, reviewing all the data, and collaborating with patient's care team: 41 minutes. Physical Exam Narrative alert and no apparent distress Constitutional Narrative: Patient appears older than his st (more content not included)...[facility] Progress note Author Corey Pelaez [facility] Note Date/Time January 11, 2025 6 :43pm [facility] Medical Records Department [address] [place] [address] Progress Note - Hospitalist 01/11/25 1741 MR#: [id number] Acct: [id number] Name: NAYLA BENNETT Rep #:[id number] : 1955 69 From: Corey Pelaez DO PCP: Dr. Eddi Lynn MD Status:ADM IN Location: [place] [address] Reason for Visit Chief Complaint: hypertension Subjective Subjective Patient was seen and examined today, he is sitting in a chair and does not look in any distress. Patient remains on room air at this time, I have elected to change his Lasix from IV Lasix to oral Lasix. Objective Data Objective Data Vital Signs: Vital Signs Temp Pulse Resp BP Pulse Ox O2 Del Method O2 Flow Rate 97.8 F 75 17 140/62 H 95 Room Air 2 01/11/25 14:38 01/11/25 14:39 01/11/25 14:38 01/11/25 14:38 01/11/25 14:38 01/11/25 14:38 01/11/25 14:00 Oxygen Flow Rate (L/min) 2 Oxygen Delivery Method Room Air Weight: 107 kg Body Mass Index (BMI) 33.8 Intake & Output: Intake and Output for Last 24 Hours 01/09/25 01/10/25 01/11/25 23:59 23:59 23:59 Intake Total 660 / 660 220 / 220 220 / 220 Output Total 450 / 450 0 / 0 Balance 210 / 210 220 / 220 220 / 220 Lab / Micro Data 01/09/25 04:58 01/09/25 04:58 Radiography Diagnostic Testing: Radiology Impression Chest X-Ray 01/11/25 05:50 IMPRESSION: Diffuse interstitial pulmonary densities consistent with CHF. Obliteration of the costophrenic angles consistent with small pleural effusions. Reading Location: [facility] Rhythm Strip Rhythm Strip: Sinus Rhythm Rate: 79 Ectopy: None Physical Exam Narrative alert and no apparent distress Constitutional Narrative: Patient appears older than his stated age, he is nonverbal and does not follow commands or respond to speech General Appearance: well developed HEENT normocephalic, head/scalp atraumatic and moist oral mucous membranes Eyes PERRL, EOMs intact bilaterally and conjunctivae normal Neck no JVD and thyroid normal General: trachea midline Resp normal respiratory effort, no retractions, no use of accessory muscles and clearto auscultation bilaterally Auscultation: Negative for rales, rhonchi or wheezes Cardio regular rate, regular rhythm, S1 normal heart sound, S2 normal heart sound, no murmurs, no rub and no gallops GI normal to inspection, nondistended, normoactive bowel sounds, soft to palpation,non-tender and non-distended Extremity no clubbing, cyanosis or edema Skin no rashes or lesions noted General Skin Exam: no breakdown Neuro CN's II-XII intact bilaterally Neuro Narrative: Patient is nonverbal and does not respond to commands or conversation Sensorium / Orientation: awake and alert Psych Psych Narrative: Patient is nonverbal and does not respond to commands or conversation Assessment & Plan Assessment/Plan (1) CHF (congestive heart failure): PLAN: Plan 1. 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-complicates care,management, recovery, and prognosis #5 seizure disorder-patient is on Keppra and phenobarbital #6 type 2 diabetes-patient's blood sugars are being monitored, sliding scale insulin will be administered as indicated #7 hypothyroidism-patient is on Synthroid #8 BPH-patient is on Flomax #9 hypoxia secondary to #4-[id number] is currently on room air Total clinical time spent by myself addressing the patient's medical issues, reviewing all of the data, and collaborating with patient's care team: 35 minutes Charges/Coding Visit Charges Inpatient E&M: 52814 Subs Hosp L2 01/11/25 3253 <Electronically signed by Corey Pelaez DO> Cosigner Signature (if applicable): CC: ~ Signed [facility] Work Phone: 1([phone] 290-686510-19-2025 Radiology Diagnostic study [facility]10-18-2025 Progress note Author Corey Pelaez [facility] Note Date/Time January 10, 2025 9 :04pm [facility] Medical Records Department [address] [place] [address] Progress Note - Hospitalist 01/10/251999 MR#: [id number] Acct: [id number] Name: NAYLA BENNETT Rep #:[id number] : 1955 69 From: Corey Pelaez DO PCP: Dr. Eddi Lynn MD Status:ADM IN Location: [place] [address] Reason for Visit Chief Complaint: hypertension Subjective Subjective Patient was seen and examined today, he was not able to return to his group hometoday because they would not be able to provide any additional medications untilMonday. Patient does not appear to be in any distress. Objective Data Objective Data Vital Signs: Vital Signs Temp Pulse Resp BP Pulse Ox O2 Del Method O2 Flow Rate 98.1 F 67 16 145/62 H 98 Nasal Cannula 2 01/10/25 15:00 01/10/25 15:02 01/10/25 15:00 01/10/25 15:02 01/10/25 15:00 01/10/25 18:00 01/10/25 18:00 Oxygen Flow Rate (L/min) 2 Oxygen Delivery Method Nasal Cannula Weight: 107 kg Body Mass Index (BMI) 33.8 Intake & Output: Intake and Output for Last 24 Hours 01/08/25 01/09/25 01/10/25 23:59 23:59 23:59 Intake Total 660 / 660 220 / 220 Output Total 450 / 450 0 / 0 Balance 210 / 210 220 / 220 Lab / Micro Data 01/09/25 04:58 01/09/25 04:58 Rhythm Strip Rhythm Strip: Sinus Rhythm Rate: 79 Ectopy: None Physical Exam Narrative alert and no apparent distress Constitutional Narrative: Patient appears older than his stated age, he is nonverbal and does not follow commands or respond to speech General Appearance: well developed HEENT normocephalic, head/scalp atraumatic and moist oral mucous membranes Eyes PERRL, EOMs intact bilaterally and conjunctivae normal Neck no JVD and thyroid normal General: trachea midline Resp normal respiratory effort, no retractions, no use of accessory muscles and clearto auscultation bilaterally Auscultation: Negative for rales, rhonchi or wheezes Cardio regular rate, regular rhythm, S1 normal heart sound, S2 normal heart sound, no murmurs, no rub and no gallops GI normal to inspection, nondistended, normoactive bowel sounds, soft to palpation,non-tender and non-distended Extremity no clubbing, cyanosis or edema Skin no rashes or lesions noted General Skin Exam: no breakdown Neuro CN's II-XII intact bilaterally Neuro Narrative: Patient is nonverbal and does not respond to commands or conversation Sensorium / Orientation: awake and alert Psych Psych Narrative: Patient is nonverbal and does not respond to commands or conversation Assessment & Plan Assessment/Plan (1) CHF (congestive heart failure): PLAN: Plan 1. 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-complicates care,management, recovery, and prognosis #5 seizure disorder-patient is on Keppra and phenobarbital #6 type 2 diabetes-patient's blood sugars are being monitored, sliding scale insulin will be administered as indicated #7 hypothyroidism-patient is on Synthroid #8 BPH-patient is on Flomax #9 hypoxia secondary to #1-patient is on low-flow nasal cannula oxygen at this time, pulse ox will be monitored Total clinical time spent by myself addressing the patient's medical issues, reviewing all of the data, and collaborating with patient's care team: 35 minutes Charges/Coding Visit Charges Inpatient E&M: 56323 Subs Hosp L2 01/10/252003 <Electronically signed by Corey Pelaez DO> Cosigner Signature (if applicable): CC: ~ Signed [facility] Work Phone: 1(717) 595-790610-18-2025 Progress note Author [facility] Note Date/Time January 10, 2025 8 :58pm [facility] Medical Records Department [address] [place] [address] Progress Note - Hospitalist 01/09/251920 MR#: [id number] Acct: [id number] Name: NAYLA BENNETT Rep #:[id number] : 1955 69 From: Corey Pelaez DO PCP: Dr. Eddi Lynn MD Status:ADM IN Location: [place] [address] Reason for Visit Chief Complaint: hypertension Subjective Subjective Patient was seen and examined today, he is nonverbal, he does not appear to be in any distress. This afternoon patient was on room air. Echocardiogram showeda normal EF with stage III diastolic dysfunction, there was no significant valvular heart disease. Objective Data Objective Data Vital Signs: Vital Signs Temp Pulse Resp BP Pulse Ox O2 Del Method O2 Flow Rate 98.1 F 70 16 159/70 H 96 Room Air 2 01/09/25 13:00 01/09/25 15:28 01/09/25 13:00 01/09/25 15:28 01/09/25 13:00 01/09/25 17:53 01/09/25 13:00 Oxygen Flow Rate (L/min) 2 Oxygen Delivery Method Room Air Weight: 107 kg Body Mass Index (BMI) 33.8 Intake & Output: Intake and Output for Last 24 Hours 01/07/25 01/08/2501/09/25 23:59 23:59 23:59 Intake Total 220 / 220 Output Total 450 / 450 Balance -230 / -230 Lab / Micro Data 01/09/25 04:58 01/09/25 04:58 Labs: Laboratory Results - last 24 hr 01/08/25 20:05: WBC 13.1 H, RBC 3.62 L, Hgb 10.9 L, Hct 32.4 L, MCV 89.5, MCH 30.1, MCHC 33.6, RDW Std Deviation 40.0, RDW Coeff of Celi 12.3, Plt Count 321, MPV 9.1, Immature Gran % (Auto) 0.500, Neut % (Auto) 78.1 H, Lymph % (Auto) 10.5L, [place] % (Auto) 10.1 H, Eos % (Auto) 0.5, Baso % (Auto) 0.3, Absolute Neuts (auto) 10.2 H, Absolute Lymphs (auto) 1.38, Nucleated RBC % 0, Sodium 129 L, Potassium 4.4, Chloride 94 L, Carbon Dioxide 22.2, Anion Gap 13, BUN 17, Creatinine 0.85, Estim Creat Clear Calc 103.03, Est GFR (MDRD) Non-Af 93, BUN/Creatinine Ratio 19.4, Glucose 193 H, Calcium 8.8, Total Bilirubin 0.22, AST23, ALT 24, Alkaline Phosphatase 82, Troponin T High Sens 30 H, NT pro BNP II 1535 H, Total Protein 6.5, Albumin 3.9, Globulin 2.6, Albumin/Globulin Ratio 1.5, Lipase 22 01/08/25 20:25: Urine Color Yellow, Urine Clarity Clear, Urine pH 6.0, Ur Specific [place] 1.015, Urine Protein 30 H, Urine Glucose (UA) 1000 H, Urine Ketones Negative, Urine Occult Blood Negative, Urine Nitrite Negative, Urine Bilirubin Negative, Urine Urobilinogen Normal, Ur Leukocyte Esterase Negative, Urine RBC 0-5 SEEN, Urine WBC 0-5 SEEN, Ur Squamous Epith Cells 0-5 SEEN, Urine Bacteria 0 SEEN, Urine Mucus 1+ 01/08/25 22:30: D-Dimer Quant (PE/DVT) < 0.27 L, Troponin T Hi Sens 2 Hr 31 H 01/09/25 00:59: Troponin T Hi Sens 4Hr 37 H 01/09/25 04:58: WBC 12.2 H, RBC 3.31 L, Hgb 10.2 L, Hct 28.9 L, MCV 87.3, MCH 30.8, MCHC 35.3 D, RDW Std Deviation 39.8, RDW Coeff of Celi 12.4, Plt Count 296, MPV 9.4, Immature Gran % (Auto) 0.400, Neut % (Auto) 68.2, Lymph % (Auto) 17.2 L, [place] % (Auto) 13.7 H, Eos % (Auto) 0.3, Baso % (Auto) 0.2, Absolute Neuts (auto) 8.3 H, Absolute Lymphs (auto) 2.10, Nucleated RBC % 0, Sodium 129 L, Potassium 3.9, Chloride 94 L, Carbon Dioxide 24.9, Anion Gap 10, BUN 14, Creatinine 0.92, Estim Creat Clear Calc 91.52, Est GFR (MDRD) Non-Af 90, BUN/Creatinine Ratio 15.1, Glucose 127 H, Calcium 8.6 Radiography Diagnostic Testing: Radiology Impression Abdomen/Pelvis CT 01/08/25 21:20 IMPRESSION: 1. There is no acute process in the abdomen or pelvis Reading Location: [facility] Chest X-Ray 01/08/25 21:33 IMPRESSION: 1. Suboptimal exam. Possible mild CHF and possible left lung base airspace disease. Reading Location: [facility] Chest CTA 01/08/25 22:04 IMPRESSION: No demonstrated pulmonary embolism or arterial dissection. Moderate cardiomegaly. Mild bilateral pleural effusions. Passive atelectatic airspace disease of the lower lobes. Moderate interstitial pulmonary congestion. Mild alveolar pulmonary congestion. Mildly enlarged mediastinal lymph nodes with the largest measuring 1.3 cm, probably reactive. Reading Location: [place] [address] Echocardiogram 01/09/25 05:55 Interpretation Summary Normal LV size. Left ventricular systolic function is normal. The left ventricular ejection fraction is 65 %. Stage 3 diastolic dysfunction. Moderate concentric left ventricular hypertrophy. Contrast injection was performed. Ordering Physician: Katie Rosenbaum Referring Physician: Eddi Lynn Performed By: Christie Meier RDCS Rhythm Strip Rhythm Strip: Sinus Rhythm Rate: 79 Ectopy: None Physical Exam Const alert and no apparent distress Constitutional Narrative: Patient appears older than his stated age, he is nonverbal and does not follow commands or respond to speech General Appearance: well developed HEENT normocephalic, head/scalp atraumatic and moist oral mucous membranes Eyes PERRL, EOMs intact bilaterally and conjunctivae normal Neck no JVD and thyroid normal General: trachea midline Resp normal respiratory effort, no retractions, no use of accessory muscles and clearto auscultation bilaterally Auscultation: Negative for rales, rhonchi or wheezes Cardio regular rate, regular rhythm, S1 normal heart sound, S2 normal heart sound, no murmurs, no rub and no gallops GI normal to inspection, nondistended, normoactive bowel sounds, soft to palpation,non-tender and non-distended Extremity no clubbing, cyanosis or edema Skin no rashes or lesions noted General Skin Exam: no breakdown Neuro CN's II-XII intact bilaterally Neuro Narrative: Patient is nonverbal and does not respond to commands or conversation Sensorium / Orientation: awake and alert Psych Psych Narrative: Patient is nonverbal and does not respond to commands or conversation Assessment & Plan Assessment/Plan (1) CHF (congestive heart failure): PLAN: Plan 1. Acute diastolic congestive heart failure-patient will remain on IV Lasix andbe reevaluated tomorrow, he lives in a [facility]. 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-complicates care, management, recovery, and prognosis #5 seizure disorder-patient is on Keppra and phenobarbital #6 type 2 diabetes-patient's blood sugars are being monitored, sliding scale insulin will be administered as indicated #7 hypothyroidism-patient is on Synthroid #8 BPH-patient is on Flomax Total clinical time spent by myself addressing the patient's medical issues, reviewing all of the data, and collaborating with patient's care team: 35 minutes Charges/Coding Visit Charges Inpatient E&M: 84822 Subs Hosp L2 01/10/251957 <Electronically signed by Corey Pelaez DO> Cosigner Signature (if applicable): CC: ~ Signed [facility] Work Phone: 1([phone]) 563-921510-17-2025 History and physical note Author [facility] Note Date/Time January 09, 2025 7 :[address] [place] [address] System Medical Records Department [address] [place] [address] H&P Exam - Hospitalist 01/08/25 2346 MR#: [id number] Acct: [id number] Name: NAYLA BENNETT Rep #:[id number] : 1955 69 From: Katie Rosenbaum MD PCP: Dr. Eddi Lynn MD Status:ADM IN Location: [place] [address] HPI - General General Date of Admission: 01/09/25 Date of Service: 01/08/25 Chief Complaint: hypertension HPI Narrative NAYLA BENNETT, is a 69 M who with a PMH as outlined including autism (nonverbal atbaseline), diabetes mellitus, seizures and schizophrenia as well as recurrent UTIs. He was noted to be short of breath by the staff in his facility. They alsoquestioned whether he was having some abdominal pain. He had not noted him having any fever or any elevated heart rate and no vomiting, diarrhea or any other symptoms. Unable to do review of systems with patient as he is nonverbal.History was obtained from a staff of his facility who was present at time of review. Vitals at time of review were blood pressure of 169/77, pulse rate of 79 respiratory rate of 18. Temperature was 98 Fahrenheit and he was saturating at 97% on room air. CBC showed hemoglobin of 10.9 with WBC of 13.1 and platelets of 321. D-dimer was less than 0.27. Chemistry showed sodium of 129 potassium of 4.4 and bicarb of 22.2. Creatinine was 0.85. Initial troponin was 30 with delta troponin of 31. proBNP was elevated at 1535. Urinalysis showed No evidence of UTI. Chest x-ray showed possible mild CHF and possible left lung base airspace disease. CT of the chest was done and read was still pending at time of my review. Of note patient was recently discharged only on 01/02/2025 after being admitted to be managed for hyponatremia [facility] Medical History Developmental non-verbal disorder Vitamin B12 deficiency Epilepsy, unspecified, not intractable, without status epilepticus Schizophrenia Seizure disorder Hyperlipidemia HTN (hypertension) Diabetes mellitus, type II Home Medications ?Medication ?Instructions ?Recorded ?Last Taken ?Type loratadine 10 mg tablet 10 mg PO DAILY allergies Unknown History atorvastatin 40 mg tablet 40 mg PO QHS cholesterol 06/12 Unknown History metformin 1,000 mg tablet 1,000 mg PO BID diabetes 06/12 Unknown History fluticasone propionate 50 1 spray intranasal QHS 12/01 Unknown History mcg/actuation nasal spray,suspension tamsulosin 0.4 mg capsule 0.4 mg PO DAILY prostate 11/12 Unknown History levothyroxine 50 mcg tablet 50 mcg PO QDAY thyroid 07/17 Unknown History cholecalciferol (vitamin D3) 1,250 1,250 mcg PO QMONTH vitamin #1 cap 05/28/24 Unknown Rx mcg (50,000 unit) capsule chlorhexidine gluconate 0.12 % 15 ml buccal BID mouth sores 11/26/24 Unknown History mouthwash olmesartan 40 mg tablet 40 mg PO QAM blood pressure #30 11/26/24 Unknown Rx tabs phenobarbital 60 mg tablet 120 mg (2 x 60 mg) PO QHS s eizures 11/26/24 Unknown Rx #56 tabs amlodipine 10 mg tablet (Norvasc) 10 mg PO DAILY blood pressure #30 12/19/24 Unknown Rx tabs beta carotene 30 mg capsule 30 mg PO DAILY supplement 12/22/24 Unknown History carvedilol 25 mg tablet 25 mg PO BIDCM #60 tabs 12/24 Unknown Rx hydralazine 50 mg tablet 50 mg PO TID #90 tabs Unknown Rx sodium chloride 1,000 mg soluble 1,000 mg PO TID #90 t abs 01/02/25 Unknown Rx tablet cyanocobalamin (vitamin B-12) 1,000 mcg sublingual BREA LY 01/08/25 Unknown History 1,000 mcg sublingual tablet levetiracetam 750 mg tablet 1,500 mg PO BID 01/08/25 U nknown History omega-3 fatty acids-fish oil 300 1 cap PO BID 01/08/25 Unknown History mg-1,000 mg capsule polyethylene glycol 3350 17 17 g PO BID 01/08/25 Unkno wn History gram/dose oral powder risperidone 3 mg tablet (Risperdal) 3 mg PO QHS Unknown History Allergy/AdvReac Type Severity Reaction Status Date / Time hydrochlorothiazide AdvReac Severe Hyponatremi Verified 12/30/24 21:31 a metformin AdvReac Severe Lactic Verified 12/30/24 21:31 Acidosis Surgical History No history of previous surgery Social History housing: other details: senior care Smoking Status: Never smoker Electronic Cigarette Use: not used second hand exposure: No alcohol intake: never substance use type: does not use seatbelt use: always ROS Review of Systems ROS Unobtainable: due to mental status and other Details: nonverbal due to autism. Vital Signs Vital Signs Vital Signs: 01/08/25 18:37 01/08/25 18:43 01/08/25 20:36 Temperature 98 F Temperature Source Axillary Pulse Rate 88 84 Respiratory Rate 18 22 H Respiratory Effort Normal Respiratory Pattern Normal Blood Pressure 179/70 H 191/66 H Blood Pressure Mean 106 107 Pulse Ox 95 88 Oxygen Delivery Method Room Air Room Air Oxygen Flow Rate (L/min) 01/08/25 20:39 01/08/25 21:35 01/08/25 22:00 Temperature Temperature Source Pulse Rate 82 73 Respiratory Rate 23 H 18 Respiratory Effort Respiratory Pattern Blood Pressure 169/60 H 164/65 H Blood Pressure Mean 96 98 Pulse Ox 95 96 Oxygen Delivery Method Nasal Cannula Nasal Cannula Nasal Cannula Oxygen Flow Rate (L/min) 2 Weight Weight: 239 lb 13.807 oz Body Mass Index (BMI) 32.5 Physical Exam Const alert Constitutional Narrative: chronically nonverbal General Appearance: cooperative HEENT normocephalic, head/scalp atraumatic and moist oral mucous membranes Mouth: oral and palatal mucosa normal Eyes EOMs intact bilaterally and conjunctivae normal Neck supple and no JVD Resp Resp Narrative: mildly diminished breath sounds bibasally, no wheezes or crackles. On 2L by nasal canula Cardio regular rate, regular rhythm, S1 normal heart sound, S2 normal heart sound and no murmurs GI soft to palpation and non-tender GI Narrative: significant abdominal distension, tympanitic to percussion, no tenderness. NO guarding or rebound tenderness. Extremity normal to inspection and full ROM Neuro moves all extremities Sensorium / Orientation: awake and alert Psych Psych Narrative: history of autism. Chronically nonverbal Results Lab / Micro Data 01/09/25 04:58 01/09/25 04:58 Labs: Laboratory Results - last 24 hr 01/08/25 20:05: WBC 13.1 H, RBC 3.62 L, Hgb 10.9 L, Hct 32.4 L, MCV 89.5, MCH 30.1, MCHC 33.6, RDW Std Deviation 40.0, RDW Coeff of Celi 12.3, Plt Count 321, MPV 9.1, Immature Gran % (Auto) 0.500, Neut % (Auto) 78.1 H, Lymph % (Auto) 10.5L, [place] % (Auto) 10.1 H, Eos % (Auto) 0.5, Baso % (Auto) 0.3, Absolute Neuts (auto) 10.2 H, Absolute Lymphs (auto) 1.38, Nucleated RBC % 0, Sodium 129 L, Potassium 4.4, Chloride 94 L, Carbon Dioxide 22.2, Anion Gap 13, BUN 17, Creatinine 0.85, Estim Creat Clear Calc 103.03, Est GFR (MDRD) Non-Af 93, BUN/Creatinine Ratio 19.4, Glucose 193 H, Calcium 8.8, Total Bilirubin 0.22, AST23, ALT 24, Alkaline Phosphatase 82, Troponin T High Sens 30 H, NT pro BNP II 1535 H, Total Protein 6.5, Albumin 3.9, Globulin 2.6, Albumin/Globulin Ratio 1.5, Lipase 22 01/08/25 20:25: Urine Color Yellow, Urine Clarity Clear, Urine pH 6.0, Ur Specific [place] 1.015, Urine Protein 30 H, Urine Glucose (UA) 1000 H, Urine Ketones Negative, Urine Occult Blood Negative, Urine Nitrite Negative, Urine Bilirubin Negative, Urine Urobilinogen Normal, Ur Leukocyte Esterase Negative, Urine RBC 0-5 SEEN, Urine WBC 0-5 SEEN, Ur Squamous Epith Cells 0-5 SEEN, Urine Bacteria 0 SEEN, Urine Mucus 1+ 01/08/25 22:30: D-Dimer Quant (PE/DVT) < 0.27 L, Troponin T Hi Sens 2 Hr 31 H Rhythm Strip Rhythm Strip: Sinus Rhythm Rate: 79 Ectopy: None Imaging Radiology Impression Abdomen/Pelvis CT 01/08/25 21:20 IMPRESSION: 1. There is no acute process in the abdomen or pelvis Reading Location: [facility] Chest X-Ray 01/08/25 21:33 IMPRESSION: 1. Suboptimal exam. Possible mild CHF and possible left lung base airspace disease. Reading Location: [facility] Assessment & Plan Assessment/Plan (1) CHF (congestive heart failure): (2) Acute dyspnea: PLAN: Plan #Hypoxia due to acute exacerbation of HF * Admit to PCU. * Chest x-ray shows some fluid overload. CT chest is pending. * proBNP is elevated at 1300. Troponins x 2 not elevated. * Diurese with IV Lasix 40 mg twice daily. Monitor intake and output. Fluid restriction to 1500 cc daily. * PT OT consult. * CTA chest showed no PE and showed moderate cardiomegaly with mild bilateral pleural effusion, modearte interstitial pulmonary and mild alveolar pulmonary congestion and mildly enlarged mediastinal lymph nodeds, likely reactive. * #Hypertension: On amlodipine and carvedilol as well as hydralazine and olmesartan #Abdominal distension * abdomen significantly distended, no guarding or rebound tenderness. TYmpanitic to percussion. The stafff rom the facility said she believed he had had a bowel movement today * CT abdomen and pelvis showed no acute pathology * will monitor closely for now and if it worsens, consider further workup or general surgery consult * #Seizure disorder: On Keppra and phenobarbital #Type 2 diabetes mellitus: Hold metformin. Insulin sliding scale. Accu-Cheks ACHS. #BPH: On Flomax DVT prophylaxis: lovenox COde status:DNRCCA no intubation per paperwork from facility. Charges/Coding Visit Charges Inpatient E&M: 18005 Init Hosp L3 Procedures Hospitalists Procedures: 93164 Advncd Care Plan 30 Min 01/09/25 0656 <Electronically signed by Katie Rosenbaum MD> Cosigner Signature (if applicable): CC: Dr. Eddi Lynn MD; Dr. Katie Rosenbaum MD~ Signed [facility] Work Phone: 1(113) 738-914710-17-2025 Discharge summary Author Aguilar Matthews [facility] Note Date/Time January 09, 2025 1 :10am [facility] Medical Records Department [address] [place] [address] Emergency Department Summary 01/08/25 MR#: [id number] Acct: [id number] Name: NAYLA BENNETT Rep #:[id number] : 1955 69 From: Aguilar Matthews MD PCP: Dr. Eddi Lynn MD Status:REG ER Location: ED HPI History of Present Illness Chief Complaint: Hypertension Informant: patient and other (Staff from the patient's resident facility) Onset/Context/Timing Onset: Today Timing: Intermittent Current Severity: Mild Maximum Severity: Mild Narrative Narrative: 69-year-old male history of autism he is not verbal. History UTIs, diabetes, seizures and schizophrenia. He is currently being treated for hypertension withcarvedilol and hydralazine. He is unable to give any history. Per the staff from his residence he has been having shortness of breath. They question if he may or may not be having abdominal pain. He is having bowel movements and urinating. They deny any vomiting or diarrhea. They deny any fever. Prior similar symptoms: Yes Recent Illness[facility] Medical History Developmental non-verbal disorder Vitamin B12 deficiency Epilepsy, unspecified, not intractable, without status epilepticus Schizophrenia Seizure disorder Hyperlipidemia HTN (hypertension) Diabetes mellitus, type II Home Medications ?Medication ?Instructions ?Recorded ?Last Taken ?Type loratadine 10 mg tablet 10 mg PO DAILY allergies Unknown History atorvastatin 40 mg tablet 40 mg PO QHS cholesterol 06/12 Unknown History metformin 1,000 mg tablet 1,000 mg PO BID diabetes 06/12 Unknown History fluticasone propionate 50 1 spray intranasal QHS 12/01 Unknown History mcg/actuation nasal spray,suspension tamsulosin 0.4 mg capsule 0.4 mg PO DAILY prostate 11/12 Unknown History levothyroxine 50 mcg tablet 50 mcg PO QDAY thyroid 07/17 Unknown History cholecalciferol (vitamin D3) 1,250 1,250 mcg PO QMONTH vitamin #1 cap 05/28/24 Unknown Rx mcg (50,000 unit) capsule chlorhexidine gluconate 0.12 % 15 ml buccal BID mouth sores 11/26/24 Unknown History mouthwash olmesartan 40 mg tablet 40 mg PO QAM blood pressure #30 11/26/24 Unknown Rx tabs phenobarbital 60 mg tablet 120 mg (2 x 60 mg) PO QHS s eizures 11/26/24 Unknown Rx #56 tabs amlodipine 10 mg tablet (Norvasc) 10 mg PO DAILY blood pressure #30 12/19/24 Unknown Rx tabs beta carotene 30 mg capsule 30 mg PO DAILY supplement 12/22/24 Unknown History carvedilol 25 mg tablet 25 mg PO BIDCM #60 tabs 12/24 Unknown Rx hydralazine 50 mg tablet 50 mg PO TID #90 tabs Unknown Rx sodium chloride 1,000 mg soluble 1,000 mg PO TID #90 t abs 01/02/25 Unknown Rx tablet cyanocobalamin (vitamin B-12) 1,000 mcg sublingual BREA LY 01/08/25 Unknown History 1,000 mcg sublingual tablet levetiracetam 750 mg tablet 1,500 mg PO BID 01/08/25 U nknown History omega-3 fatty acids-fish oil 300 1 cap PO BID 01/08/25 Unknown History mg-1,000 mg capsule polyethylene glycol 3350 17 17 g PO BID 01/08/25 Unkno wn History gram/dose oral powder risperidone 3 mg tablet (Risperdal) 3 mg PO QHS Unknown History Allergy/AdvReac Type Severity Reaction Status Date / Time hydrochlorothiazide AdvReac Severe Hyponatremi Verified 12/30/24 21:31 a metformin AdvReac Severe Lactic Verified 12/30/24 21:31 Acidosis Surgical History No history of previous surgery Social History housing: other details: senior care Smoking Status: Never smoker Electronic Cigarette Use: not used second hand exposure: No alcohol intake: never substance use type: does not use seatbelt use: always ROS ROS ED ROS Narrative Possible shortness of breath. Acute on chronic hypertension. Possible abdominal pain. Constitutional Constitutional ED: Denies chills or fever(s) Eyes Eyes: Denies blurry vision ENT ENT ED: Denies ear pain Cardiovascular Cardiovascular: Denies chest pain Respiratory/Chest Respiratory/Chest: Reports dyspnea; Denies cough Gastrointestinal Gastrointestinal: Denies constipation, nausea or vomiting Genitourinary Genitourinary ED: Denies dysuria or hematuria Musculoskeletal Musculoskeletal: Denies arthralgias Integumentary Denies abscess Neurologic Neurologic: Denies headache(s) Psychiatric Psychiatric: Denies anxiety Endocrine Endocrinology: Denies cold intolerance Hematologic/Lymphatic Hematologic/Lymphatic: Reports none Allergic/Immunologic Allergic/Immunologic ED: Denies mouth swelling, tongue swelling or urticaria EXAM Physical Exam Narrative Exam Narrative: 69-year-old male sitting upright in bed no distress. Initial blood pressure 179/70. There are staff from his resident facility with him. She is give me the history. H EENT exam pupils round react light. Moist mucous membranes. Neck nontender no lymphadenopathy. Back nontender. Lungs clear to auscultationbilaterally. Heart regular rhythm rate about 90 no murmur. Chest wall ribs nontender. Abdomen appears distended but is not tender. He has bowel sounds. There is no peritoneal signs. There is no hernia or obvious obstruction. Moving all 4 extremities. Nontender no edema. Neurologically his eyes are open. He follows very limited commands. He is not really answering any questions. Const Vital Signs: 01/08/25 18:37 01/08/25 18:43 01/08/25 20:36 Temperature 98 F Temperature Source Axillary Pulse Rate 88 84 Respiratory Rate 18 22 H Respiratory Effort Normal Respiratory Pattern Normal Blood Pressure 179/70 H 191/66 H Blood Pressure Mean 106 107 Pulse Ox 95 88 Oxygen Delivery Method Room Air Room Air Oxygen Flow Rate (L/min) 01/08/25 20:39 01/08/25 21:35 01/08/25 22:00 Temperature Temperature Source Pulse Rate 82 73 Respiratory Rate 23 H 18 Respiratory Effort Respiratory Pattern Blood Pressure 169/60 H 164/65 H Blood Pressure Mean 96 98 Pulse Ox 95 96 Oxygen Delivery Method Nasal Cannula Nasal Cannula Nasal Cannula Oxygen Flow Rate (L/min) 2 MDM MDM MDM Narrative Medical decision making narrative: 69-year-old male brought in for acute on chronic hypertension. May or may not be short of breath. May or may not be having abdominal pain.'s exam is benign. He cannot really give a history due to his autism and his limited speech. He will undergo a cardiac and abdominal workup. Will be given hydralazine for his blood pressure. Multiple repeat exams patient required oxygen but his pulse ox dropped around 88. On 2 L he is in low to mid 90s. He is resting comfortably. I will admit him for congestive heart failure. He will be given a dose of IV Lasix. His blood pressure improved with the hydralazine. I have the hospitalist on page. History & Record Review Discussion w/independent historian: Patient Additional record(s) reviewed:: Prior inpatient record, Prior outpatient record,Prior ED visit and Prior labs Lab Data Attestation: I reviewed the patient's lab results. Lab results narrative: CBC shows white count 13.1. H&H 10.9 and 32. Platelets 321. Chemistry shows sodium 129. Gap 13. BUN and creatinine of 17 and 0.8. [id number]. Liver enzymes unremarkable. Lipase normal at 22. Urinalysis no nitrates. No white or red cells. No bacteria. Initial troponin 30. 2-hour troponin 31. BNP 1535. D-dimer normal. Less than0.27 CT abdomen as read by the radiologist no acute abnormality. Chest x-ray consistent CHF. Labs: Laboratory Results - last 24 hr 01/08/25 01/08/25 01/08/25 20:05 20:25 22:30 WBC 13.1 H RBC 3.62 L Hgb 10.9 L Hct 32.4 L MCV 89.5 MCH 30.1 MCHC 33.6 RDW Std Deviation 40.0 RDW Coeff of Celi 12.3 Plt Count 321 MPV 9.1 Immature Gran % (Auto) 0.500 Neut % (Auto) 78.1 H Lymph % (Auto) 10.5 L [place] % (Auto) 10.1 H Eos % (Auto) 0.5 Baso % (Auto) 0.3 Absolute Neuts (auto) 10.2 H Absolute Lymphs (auto) 1.38 Nucleated RBC % 0 D-Dimer Quant (PE/DVT) < 0.27 L Sodium 129 L Potassium 4.4 Chloride 94 L Carbon Dioxide 22.2 Anion Gap 13 BUN 17 Creatinine 0.85 Estim Creat Clear Calc 103.03 Est GFR (MDRD) Non-Af 93 BUN/Creatinine Ratio 19.4 Glucose 193 H Calcium 8.8 Total Bilirubin 0.22 AST 23 ALT 24 Alkaline Phosphatase 82 Troponin T High Sens 30 H Troponin T Hi Sens 2 Hr 31 H NT pro BNP II 1535 H Total Protein 6.5 Albumin 3.9 Globulin 2.6 Albumin/Globulin Ratio 1.5 Lipase 22 Urine Color Yellow Urine Clarity Clear Urine pH 6.0 Ur Specific [place] 1.015 Urine Protein 30 H Urine Glucose (UA) 1000 H Urine Ketones Negative Urine Occult Blood Negative Urine Nitrite Negative Urine Bilirubin Negative Urine Urobilinogen Normal Ur Leukocyte Esterase Negative Urine RBC 0-5 SEEN Urine WBC 0-5 SEEN Ur Squamous Epith Cells 0-5 SEEN Urine Bacteria 0 SEEN Urine Mucus 1+ Radiography Chest X-Ray - ED: 2 View, Read by ED Physician, Read by Radiologist, Heart, Mediastinum, Bony Structures, Chronic Changes and CHF Diagnostic Testing: Clinical Impression(s) from Imaging Studies Abdomen/Pelvis CT 01/08/25 21:20 IMPRESSION: 1. There is no acute process in the abdomen or pelvis Reading Location: [facility] Chest X-Ray 01/08/25 21:33 IMPRESSION: 1. Suboptimal exam. Possible mild CHF and possible left lung base airspace disease. Reading Location: [facility] Chest x-ray, 2 views AP and lateral, interpreted by myself and radiologist. Normal cardiac silhouette. Appears to have pulmonary edema, mild CHF. No obvious pneumonia. No pleural effusions. Rhythm Strip Rhythm Strip: Sinus Rhythm Rate: 79 Ectopy: None EKG Initial EKG: Attestation: I personally reviewed and interpreted this EKG as follows: Interpretation: Sinus Rhythm and No Acute Injury Pattern Comments: Normal sinus rhythm rate 79 no acute signs of ID or ischemia. No dysrhythmia. Discharge Plan Dx/Rx/DC Orders Clinical Impression: Acute dyspnea, Hypoxia, CHF (congestive heart failure), History of diabetes mellitus, History of hypertension Disposition Disposition: Acute Care Hospital [facility] What to do if you have Problems For any increased pain, shortness of breath, bleeding, nausea or vomiting, chestpain, or any unexpected problems, contact your Primary Care Provider. Call [facility] ([phone]) or report to the closest Emergency Room. Call 911 if necessary. 01/09/250 <Electronically signed by Aguilar Matthews MD> Cosigner Signature (if applicable): CC: Dr. Eddi Lynn MD ~ Signed [facility] Work Phone: 1([phone] 221-187710-17-2025 Radiology Diagnostic study [facility]10-17-2025 Radiology Diagnostic study [facility]10-16-2025 Radiology Diagnostic study [facility] 01-08-2025 Radiology Diagnostic study [facility]10-16-2025 Radiology Diagnostic study [facility]10-16-2025 Radiology Diagnostic study [facility]10-16-2025 Discharge summary Author Aguilar Matthews [facility] Note Date/Time January 09, 2025 1 2:10am [facility] Medical Records Department [address] [place] [id number] Emergency Department Summary 01/08/25 MR#: [id number] Acct: [id number] Name: NAYLA BENNETT Rep #:[id number] : 1955 69 From: Aguilar Matthews MD PCP: Dr. Eddi Lynn MD Status:REG ER Location: ED HPI History of Present Illness Chief Complaint: Hypertension Informant: patient and other (Staff from the patient's resident facility) Onset/Context/Timing Onset: Today Timing: Intermittent Current Severity: Mild Maximum Severity: Mild Narrative Narrative: 69-year-old male history of autism he is not verbal. History UTIs, diabetes, seizures and schizophrenia. He is currently being treated for hypertension withcarvedilol and hydralazine. He is unable to give any history. Per the staff from his residence he has been having shortness of breath. They question if he may or may not be having abdominal pain. He is having bowel movements and urinating. They deny any vomiting or diarrhea. They deny any fever. Prior similar symptoms: Yes Recent Illness[facility] Medical History Developmental non-verbal disorder Vitamin B12 deficiency Epilepsy, unspecified, not intractable, without status epilepticus Schizophrenia Seizure disorder Hyperlipidemia HTN (hypertension) Diabetes mellitus, type II Home Medications ?Medication ?Instructions ?Recorded ?Last Taken ?Type loratadine 10 mg tablet 10 mg PO DAILY allergies Unknown History atorvastatin 40 mg tablet 40 mg PO QHS cholesterol 06/12 Unknown History metformin 1,000 mg tablet 1,000 mg PO BID diabetes 06/12 Unknown History fluticasone propionate 50 1 spray intranasal QHS 12/01 Unknown History mcg/actuation nasal spray,suspension tamsulosin 0.4 mg capsule 0.4 mg PO DAILY prostate 11/12 Unknown History levothyroxine 50 mcg tablet 50 mcg PO QDAY thyroid 07/17 Unknown History cholecalciferol (vitamin D3) 1,250 1,250 mcg PO QMONTH vitamin #1 cap 05/28/24 Unknown Rx mcg (50,000 unit) capsule chlorhexidine gluconate 0.12 % 15 ml buccal BID mouth sores 11/26/24 Unknown History mouthwash olmesartan 40 mg tablet 40 mg PO QAM blood pressure #30 11/26/24 Unknown Rx tabs phenobarbital 60 mg tablet 120 mg (2 x 60 mg) PO QHS s eizures 11/26/24 Unknown Rx #56 tabs amlodipine 10 mg tablet (Norvasc) 10 mg PO DAILY blood pressure #30 12/19/24 Unknown Rx tabs beta carotene 30 mg capsule 30 mg PO DAILY supplement 12/22/24 Unknown History carvedilol 25 mg tablet 25 mg PO BIDCM #60 tabs 12/24 Unknown Rx hydralazine 50 mg tablet 50 mg PO TID #90 tabs Unknown Rx sodium chloride 1,000 mg soluble 1,000 mg PO TID #90 t abs 01/02/25 Unknown Rx tablet cyanocobalamin (vitamin B-12) 1,000 mcg sublingual BREA LY 01/08/25 Unknown History 1,000 mcg sublingual tablet levetiracetam 750 mg tablet 1,500 mg PO BID 01/08/25 U nknown History omega-3 fatty acids-fish oil 300 1 cap PO BID 01/08/25 Unknown History mg-1,000 mg capsule polyethylene glycol 3350 17 17 g PO BID 01/08/25 Unkno wn History gram/dose oral powder risperidone 3 mg tablet (Risperdal) 3 mg PO QHS Unknown History Allergy/AdvReac Type Severity Reaction Status Date / Time hydrochlorothiazide AdvReac Severe Hyponatremi Verified 12/30/24 21:31 a metformin AdvReac Severe Lactic Verified 12/30/24 21:31 Acidosis Surgical History No history of previous surgery Social History housing: other details: senior care Smoking Status: Never smoker Electronic Cigarette Use: not used second hand exposure: No alcohol intake: never substance use type: does not use seatbelt use: always ROS ROS ED ROS Narrative Possible shortness of breath. Acute on chronic hypertension. Possible abdominal pain. Constitutional Constitutional ED: Denies chills or fever(s) Eyes Eyes: Denies blurry vision ENT ENT ED: Denies ear pain Cardiovascular Cardiovascular: Denies chest pain Respiratory/Chest Respiratory/Chest: Reports dyspnea; Denies cough Gastrointestinal Gastrointestinal: Denies constipation, nausea or vomiting Genitourinary Genitourinary ED: Denies dysuria or hematuria Musculoskeletal Musculoskeletal: Denies arthralgias Integumentary Denies abscess Neurologic Neurologic: Denies headache(s) Psychiatric Psychiatric: Denies anxiety Endocrine Endocrinology: Denies cold intolerance Hematologic/Lymphatic Hematologic/Lymphatic: Reports none Allergic/Immunologic Allergic/Immunologic ED: Denies mouth swelling, tongue swelling or urticaria EXAM Physical Exam Narrative Exam Narrative: 69-year-old male sitting upright in bed no distress. Initial blood pressure 179/70. There are staff from his resident facility with him. She is give me the history. H EENT exam pupils round react light. Moist mucous membranes. Neck nontender no lymphadenopathy. Back nontender. Lungs clear to auscultationbilaterally. Heart regular rhythm rate about 90 no murmur. Chest wall ribs nontender. Abdomen appears distended but is not tender. He has bowel sounds. There is no peritoneal signs. There is no hernia or obvious obstruction. Moving all 4 extremities. Nontender no edema. Neurologically his eyes are open. He follows very limited commands. He is not really answering any questions. Const Vital Signs: 01/08/25 18:37 01/08/25 18:43 01/08/25 20:36 Temperature 98 F Temperature Source Axillary Pulse Rate 88 84 Respiratory Rate 18 22 H Respiratory Effort Normal Respiratory Pattern Normal Blood Pressure 179/70 H 191/66 H Blood Pressure Mean 106 107 Pulse Ox 95 88 Oxygen Delivery Method Room Air Room Air Oxygen Flow Rate (L/min) 01/08/25 20:39 01/08/25 21:35 01/08/25 22:00 Temperature Temperature Source Pulse Rate 82 73 Respiratory Rate 23 H 18 Respiratory Effort Respiratory Pattern Blood Pressure 169/60 H 164/65 H Blood Pressure Mean 96 98 Pulse Ox 95 96 Oxygen Delivery Method Nasal Cannula Nasal Cannula Nasal Cannula Oxygen Flow Rate (L/min) 2 MDM MDM MDM Narrative Medical decision making narrative: 69-year-old male brought in for acute on chronic hypertension. May or may not be short of breath. May or may not be having abdominal pain.'s exam is benign. He cannot really give a history due to his autism and his limited speech. He will undergo a cardiac and abdominal workup. Will be given hydralazine for his blood pressure. Multiple repeat exams patient required oxygen but his pulse ox dropped around 88. On 2 L he is in low to mid 90s. He is resting comfortably. I will admit him for congestive heart failure. He will be given a dose of IV Lasix. His blood pressure improved with the hydralazine. I have the hospitalist on page. History & Record Review Discussion w/independent historian: Patient Additional record(s) reviewed:: Prior inpatient record, Prior outpatient record,Prior ED visit and Prior labs Lab Data Attestation: I reviewed the patient's lab results. Lab results narrative: CBC shows white count 13.1. H&H 10.9 and 32. Platelets 321. Chemistry shows sodium 129. Gap 13. BUN and creatinine of 17 and 0.8. [id number]. Liver enzymes unremarkable. Lipase normal at 22. Urinalysis no nitrates. No white or red cells. No bacteria. Initial troponin 30. 2-hour troponin 31. BNP 1535. D-dimer normal. Less than0.27 CT abdomen as read by the radiologist no acute abnormality. Chest x-ray consistent CHF. Labs: Laboratory Results - last 24 hr 01/08/25 01/08/25 01/08/25 20:05 20:25 22:30 WBC 13.1 H RBC 3.62 L Hgb 10.9 L Hct 32.4 L MCV 89.5 MCH 30.1 MCHC 33.6 RDW Std Deviation 40.0 RDW Coeff of Celi 12.3 Plt Count 321 MPV 9.1 Immature Gran % (Auto) 0.500 Neut % (Auto) 78.1 H Lymph % (Auto) 10.5 L [place] % (Auto) 10.1 H Eos % (Auto) 0.5 Baso % (Auto) 0.3 Absolute Neuts (auto) 10.2 H Absolute Lymphs (auto) 1.38 Nucleated RBC % 0 D-Dimer Quant (PE/DVT) < 0.27 L Sodium 129 L Potassium 4.4 Chloride 94 L Carbon Dioxide 22.2 Anion Gap 13 BUN 17 Creatinine 0.85 Estim Creat Clear Calc 103.03 Est GFR (MDRD) Non-Af 93 BUN/Creatinine Ratio 19.4 Glucose 193 H Calcium 8.8 Total Bilirubin 0.22 AST 23 ALT 24 Alkaline Phosphatase 82 Troponin T High Sens 30 H Troponin T Hi Sens 2 Hr 31 H NT pro BNP II 1535 H Total Protein 6.5 Albumin 3.9 Globulin 2.6 Albumin/Globulin Ratio 1.5 Lipase 22 Urine Color Yellow Urine Clarity Clear Urine pH 6.0 Ur Specific [place] 1.015 Urine Protein 30 H Urine Glucose (UA) 1000 H Urine Ketones Negative Urine Occult Blood Negative Urine Nitrite Negative Urine Bilirubin Negative Urine Urobilinogen Normal Ur Leukocyte Esterase Negative Urine RBC 0-5 SEEN Urine WBC 0-5 SEEN Ur Squamous Epith Cells 0-5 SEEN Urine Bacteria 0 SEEN Urine Mucus 1+ Radiography Chest X-Ray - ED: 2 View, Read by ED Physician, Read by Radiologist, Heart, Mediastinum, Bony Structures, Chronic Changes and CHF Diagnostic Testing: Clinical Impression(s) from Imaging Studies Abdomen/Pelvis CT 01/08/25 21:20 IMPRESSION: 1. There is no acute process in the abdomen or pelvis Reading Location: [facility] Chest X-Ray 01/08/25 21:33 IMPRESSION: 1. Suboptimal exam. Possible mild CHF and possible left lung base airspace disease. Reading Location: [facility] Chest x-ray, 2 views AP and lateral, interpreted by myself and radiologist. Normal cardiac silhouette. Appears to have pulmonary edema, mild CHF. No obvious pneumonia. No pleural effusions. Rhythm Strip Rhythm Strip: Sinus Rhythm Rate: 79 Ectopy: None EKG Initial EKG: Attestation: I personally reviewed and interpreted this EKG as follows: Interpretation: Sinus Rhythm and No Acute Injury Pattern Comments: Normal sinus rhythm rate 79 no acute signs of ID or ischemia. No dysrhythmia. Discharge Plan Dx/Rx/DC Orders Clinical Impression: Acute dyspnea, Hypoxia, CHF (congestive heart failure), History of diabetes mellitus, History of hypertension Disposition Disposition: Acute Care Hospital [facility] What to do if you have Problems For any increased pain, shortness of breath, bleeding, nausea or vomiting, chestpain, or any unexpected problems, contact your Primary Care Provider. Call [facility] ([phone]) or report to the closest Emergency Room. Call 911 if necessary. 01/09/25 0010 <Electronically signed by Aguilar Matthews MD> Cosigner Signature (if applicable): CC: Dr. Eddi Lynn MD ~ Signed [facility] Work Phone: 1(322) 868-960610-10-2025 Discharge summary Author Alice Mckeon [facility] Note Date/Time January 02, 2025 1 :43pm [facility] Medical Records Department [address] [place] [address] Discharge Summary 01/02/25 1318 MR#: [id number] Acct: [id number] Name: NAYLA BENNETT Rep #:[id number] : 1955 69 From: Alice Mckeon DO PCP: Dr. Eddi Lynn MD Status:ADM [facility] Prov[facility] Date of Admission: 12/30/24 Date of Discharge: 01/02/25 Primary Care Physician: Eddi Lynn MD Reason For Visit: SEVERE ACUTE HYPONATREMIA 2/2 ADR TO HCTZ Diagnosis Discharge Diagnosis (1) Generalized weakness: Status: Acute Code(s): R53.1 - Weakness (2) Uncontrolled hypertension: Status: Acute Code(s): I10 - Essential (primary) hypertension (3) Lactic acidosis: Status: Acute Code(s): E87.20 - Acidosis, unspecified (4) Leukocytosis: Status: Acute Code(s): D72.829 - Elevated white blood cell count, unspecified Qualifiers: Leukocytosis type: unspecified Qualified Code(s): D72.829 - Elevated white blood cell count, unspecified (5) Acute hyponatremia: Status: Acute Code(s): E87.1 - Hypo-osmolality and hyponatremia Plan Hyponatremia-etiology unclear at this time - Sodium at 119 on presentation - Now up to 128 - Repeat sodium in a.m. - Not completely indicative of SIADH - Will continue fluid restrict to 1250 cc daily - Continue salt tablets 1 g 3 times daily - Continue to hold HCTZ and will discontinue at discharge - TSH is within normal limits - Cortisol levels within normal limits Generalized weakness/debility - PT/OT consultation - Patient resides in a [facility] at baseline with intent to return home once medical issues are stable Lactic acidosis - Initially thought it was related to metformin however with normal renal function seems unlikely - Highly suspect patient may have had a seizure prior to arrival or while in theemergency department and therefore elevated lactic acid with very rapid resolution - No signs of infection as patient has unremarkable sed rate, CRP, and procalcitonin Leukocytosis - No infectious etiology identified as of yet - Will monitor clinically - Sed rate/CRP/Pro-Jake are unremarkable - Urine cultures no growth - Blood cultures pending Essential hypertension/hyperlipidemia - With discontinuation of HCTZ blood pressures remain elevated - Continue Coreg 12.5 mg p.o. twice daily - Add hydralazine 50 mg 3 times daily - continue amlodipine 10 mg daily - Continue ARB - Continue statin BPH with obstruction - Continue Flomax Seizure disorder - Continue phenobarb - Continue Keppra - Levels are pending for both drugs--> likely will not have Keppra level Schizophrenia - Continue home risperidone Hypothyroidism - Continue home levothyroxine Seasonal allergies Open continue home loratadine - Continue home nasal spray DM-2 - A1c is 6.1 indicative of good control - Patient on metformin as an outpatient 1000 mg p.o. twice daily - Hold for now - SSI with Accu-Cheks as ordered Vitamin D deficiency - Continue home vitamin D supplementation History of vitamin B12 deficiency - Continue oral replacement Chronic constipation - Continue home bowel regimen Obesity - BMI is 30.9 - Recommend weight loss - Complicates treatment, prognosis, outcomes DVT prophylaxis - Continue enoxaparin 40 daily CODE STATUS - Patient is listed as full code unverified - No paperwork from [facility] indicating what his CODE STATUS is and patient isnot able to have that conversation - Trying to touch base with the ch[facility] to see what his CODE STATUS is so we can addend the order Medications at Discharge Home Medications loratadine 10 mg tablet 10 mg PO DAILY allergies 07/16/16 omega 7-ukf-voh-fish oil 300 mg-1,000 mg capsule 1 ea PO BID 07/16/16 risperidone 3 mg tablet 3 mg PO QHS 07/16/16 atorvastatin 40 mg tablet 40 mg PO QHS 11/27/19 metformin 1,000 mg tablet 1,000 mg PO BID 11/27/19 fluticasone propionate 50 mcg/actuation nasal spray,suspension 1 spray intranasal QHS 12/02/19 polyethylene glycol 3350 17 gram oral powder packet 17 g PO BID 12/02/19 tamsulosin 0.4 mg capsule 0.4 mg PO DAILY 12/02/19 levothyroxine 50 mcg tablet 50 mcg PO QDAY 11/28/23 cholecalciferol (vitamin D3) 1,250 mcg (50,000 unit) capsule 1,250 mcg PO QMONTH#1 cap 05/28/24 mecobalamin (vitamin B12) 1,000 mcg chewable tablet (B12 Active) 1,000 mcg PO DAILY #30 tabs 05/28/24 chlorhexidine gluconate 0.12 % mouthwash 15 ml buccal BID 11/26/24 olmesartan 40 mg tablet 40 mg PO QAM #30 tabs 11/26/24 phenobarbital 60 mg tablet 120 mg (2 x 60 mg) PO QHS #56 tabs 11/26/24 amlodipine 10 mg tablet (Norvasc) 10 mg PO DAILY #30 tabs 12/19/24 beta carotene 30 mg capsule 30 mg PO DAILY 12/22/24 levetiracetam 1,000 mg tablet 1,000 mg PO BID 12/22/24 carvedilol 25 mg tablet 25 mg PO BIDCM #60 tabs 01/02/25 hydralazine 50 mg tablet 50 mg PO TID #90 tabs 01/02/25 sodium chloride 1,000 mg soluble tablet 1,000 mg PO TID #90 tabs 01/02/25 Hospital Course Operations None Procedures - (CT brain/CT cervical spine/CT abdomen and pelvis) Summary of Care Provided Minutes Spent on Discharge: 39 Hospital Course: Mr. Bennett is a 69-year-old white male who is nonverbal at baseline with a historyof schizophrenia and seizures who presented to the emergency department from hisgroup home due to multiple falls on the day of presentation. According to his [facility] he has been getting antibiotics for UTI over the last several days prior to presentation. He sustained several falls prior to admission so they referred him to the emergency department for further evaluation. Patient is notable to give any history. He makes verbal sounds but they are unintelligible orecholalia. Vital signs on presentation showed temperature of 97.9, heart rate 87, respiratory rate was 17, blood pressure was 158/85 and pulse ox was 95% on room air. CBC showed a mild leukocytosis white count of 12.9 and a mild monocytosis but no left shift. Chemistry panel revealed marked hyponatremia with a sodium of 119. Previous baseline is unclear. His anion gap was 17 with a bicarb of 20.9. Renal function was normal. Lactic acid was initially 5.1. Liver functions were unremarkable. Urine was not consistent with infection. CTof the brain was unremarkable. CT of the cervical spine was unremarkable for any acute findings. CT of the abdomen pelvis showed urinary distention of the bladder with mild hydroureter bilaterally which was consistent with reflux but was otherwise unremarkable. Given his marked hyponatremia and falls he was admitted initially to the ICU and then transferred to the medical floor. He wasnoted to be on HCTZ at home and this was discontinued at the time of admission. His blood pressure remained elevated and we added hydralazine 50 mg 3 times daily initially. His blood pressure still remained elevated so we added Coreg initially 12.5 twice daily and this was uptitrated to 25 p.o. twice daily with improved blood pressure control prior to discharge. HCTZ will be discontinued indefinitely. Workup for hyponatremia was somewhat of a mixed picture. His uric acid was negative. He was hypoosmolar and I suspect this was adverse reaction related to hyponatremia. He did have a lactic acid on presentation. Initially it was thought maybe this was related to his metformin however his renal function was normal. I am wondering if he had a mild seizure that was notwitnessed and maybe this was related to one of his falls as it would explain themarked elevation at 5.1 at presentation but quick resolution of 1.1 after admission. Ultimately, he was placed on salt tablets we will continue these for1 month. Sodium at the time of discharge was up to 132. He was evaluated by physical and Occupational Therapy and did extremely well and they felt he had noongoing needs for therapy services at the time of discharge. By 01/02/2025 again, his sodium was up to 132 and he was stable for discharge. HCTZ was placed as an allergy with side effect of severe hyponatremia and it is recommended that this be discontinued indefinitely not used again. New prescriptions for Coreg, hydralazine, and salt tablets for 1 month were given tothe patient. I do recommend he have a follow-up BMP in 2 weeks and a follow-up with his primary care physician to reassess his blood pressure with the changes made during his hospital course. Patient was discharged home in stable condition with prescriptions sent to local pharmacy on 01/02/2025. Discharge diagnoses: Acute hyponatremia secondary to adverse reaction to HCTZ Generalized weakness Debilities Falls Lactic acidosis Leukocytosis-resolving Essential hypertension Hyperlipidemia BPH with obstruction Seizure disorder Schizophrenia Hypothyroidism Seasonal allergies DM-2 Vitamin D deficiency Vitamin B12 deficiency Chronic constipation Obesity Physical Exam Const alert, no apparent distress, no limitations and well nourished; Negative for oriented x3 or average body habitus Constitutional Narrative: Obese, older, white male, sitting up in a chair at the bedside, TV is on, patient is awake, interacts but vocalizations are echolalia and speech is intermittently unintelligible General Appearance: cooperative, comfortable, well kempt and well developed Orientation / Consciousness: awake Nutritional Appearance: obese HEENT normocephalic, head/scalp atraumatic and moist oral mucous membranes HEENT Narrative: Mallampati 3, no thrush Eyes conjunctivae normal Eyes Narrative: No scleral icterus Neck supple Neck Narrative: Trachea midline, neck is short and thick Resp normal respiratory effort, no retractions, no use of accessory muscles and clearto auscultation bilaterally Auscultation: Negative for crackles, rhonchi or wheezes Cardio regular rate, regular rhythm, S1 normal heart sound, S2 normal heart sound, no murmurs, no rub, no gallops and no clicks GI normal to inspection, nondistended, normoactive bowel sounds, soft to palpation and non-tender GI Narrative: Protuberant abdomen Extremity no clubbing, cyanosis or edema Extremity Narrative: Decreased lean muscle mass Skin no jaundice, no petechiae and no mottling Skin Narrative: somewhat pale appearing Neuro moves all extremities and no focal motor deficits Neuro Narrative: Patient has difficulty following commands consistently, significant echolalia, no deficits noted on spontaneous movement Speech: Negative for speech normal Psych Psych Narrative: Difficult to assess, patient is currently calm, noncombative Weight / BMI Weight Weight: 104.5 kg Body Mass Index (BMI) 31.1 ABG / Lab / Microbiology Data 01/02/25 05:56 01/02/25 05:56 Laboratory: Laboratory Results - last 24 hr 01/01/25 07:24: Sodium 129 L, Potassium 3.8, Chloride 94 L, Carbon Dioxide 23.4,Anion Gap 11, BUN 12, Creatinine 0.96, Estim Creat Clear Calc 89.53, Est GFR (MDRD) Non-Af 85, BUN/Creatinine Ratio 12.2, Glucose 139 H, Calcium 8.9 01/01/25 17:20: POC Glucose 107 H 01/01/25 21:20: POC Glucose 130 H 01/02/25 05:56: WBC 11.1 H, RBC 4.12 L, Hgb 12.5 L, Hct 35.2 L, MCV 85.4, MCH 30.3, MCHC 35.5, RDW Std Deviation 38.5, RDW Coeff of Celi 12.3, Plt Count 294, MPV 8.7, Sodium 132 L, Potassium 3.9, Chloride 99, Carbon Dioxide 23.2, Anion Gap 10, BUN 13, Creatinine 0.99, Estim Creat Clear Calc 86.77, Est GFR (MDRD) Non-Af 82, BUN/Creatinine Ratio 13.1, Glucose 122 H, Calcium 8.8 01/02/25 06:08: POC Glucose 119 H 01/02/25 11:37: POC Glucose 173 H Microbiology: Microbiology 12/30/24 16:49 Blood Culture (Wb) - Anticubital Right Blood Culture - Preliminary No growth in 48 hours. 12/30/24 16:16 Blood Culture (Wb) - Anticubital Right Blood Culture - Preliminary No growth in 48 hours. 12/30/24 16:23 Urine, Catheterized Urine Culture - Final Culture exhibits no growth. D/C Instructions Discharge Activity: Return to Normal Activity DC O2, CPAP, BIPAP Needs Home O2 Discharge instructions: No DC home with Oxygen: No Meaningful Use Info Meaningful Use Meaningful Use Diagnoses (Choose all that apply): None applicable Discharge Plan Admission Admit Date/Time: 12/30/24 21:21 Primary Reason for Your Visit: Falls Attending Provider: Alice Mckeon Primary Care Provider: Eddi Lynn Consulting Providers: Jorge Herrera Instructions Additional Instructions / Restrictions: 1. Patient will need to follow-up for his blood pressure and his sodium with a repeat BMP in 2 weeks. He is to be on sodium tablets for 1 month but if repeat BMP shows elevated sodium may be able to discontinue earlier at the discretion of his primary care physician 2. HCTZ should be added to his allergy list with the severe side effect of hyponatremia Discharge Orders/Prescriptions Prescriptions: New carvedilol 25 mg Tablet 25 mg PO BIDCM Qty: 60 2RF hydralazine 50 mg Tablet 50 mg PO TID Qty: 90 2RF sodium chloride 1,000 mg Tablet,Soluble 1,000 mg PO TID Qty: 90 0RF Continued metformin 1,000 mg tablet 1,000 mg PO BID atorvastatin 40 mg tablet 40 mg PO QHS polyethylene glycol 3350 17 gram powder in packet 17 g PO BID fluticasone propionate 50 mcg/actuation spray,suspension 1 spray INTRANASAL QHS Rx Instructions: administer into each nostril tamsulosin 0.4 mg capsule 0.4 mg PO DAILY chlorhexidine gluconate 0.12 % mouthwash 15 ml BUCCAL BID levothyroxine 50 mcg tablet 50 mcg PO QDAY cholecalciferol (vitamin D3) 1,250 mcg (50,000 unit) capsule 1,250 mcg PO QMONTH Qty: 1 7RF Patient Comments: TAKES ON THE 20TH OF EACH MONTH B12 Active 1,000 mcg tablet,chewable 1,000 mcg PO DAILY Qty: 30 7RF olmesartan 40 mg tablet 40 mg PO QAM Qty: 30 6RF phenobarbital 60 mg tablet 120 mg PO QHS Qty: 56 5RF risperidone 3 MG tablet 3 mg PO QHS loratadine 10 MG tablet 10 mg PO DAILY omega 1-czr-qvq-fish oil 1 EACH capsule 1 ea PO BID beta carotene 30 mg capsule 30 mg PO DAILY levetiracetam 1,000 mg tablet 1,000 mg PO BID amlodipine [Norvasc] 10 mg tablet 10 mg PO DAILY Qty: 30 0RF Discontinued hydrochlorothiazide 25 mg tablet 25 mg PO DAILY Referrals / Follow Up: Eddi Lynn MD [Primary Care Provider, Family Practice] - Within 2 Weeks Disposition Disposition (needs filled in before D/C Order can be placed): DC/Tx to Another Type of HCF Charges/Coding Visit Charges Inpatient E&M: 73633 Disch Hosp >30min 01/02/25 1343 <Electronically signed by Alice Mckeon DO> Cosigner Signature (if applicable): CC: Dr. Eddi Lynn MD; Dr. Alice Mckeon DO~ Signed [facility] Work Phone: 1(821) 310-740810-10-2025 [facility] Medical Records Department [address] [place] [address] Discharge Summary 01/02/25 1318 MR#: [id number] Acct: [id number] Name: NAYLA BENNETT Rep #: [id number] : 1955 69 From: Alice Mckeon DO PCP: Dr. Eddi Lynn MD Status:ADM IN Location: [place] [id number] Providers Date of Admission: 12/30/24 Date of Discharge: 01/02/25 Primary Care Physician: Eddi Lynn MD Reason For Visit: SEVERE ACUTE HYPONATREMIA 2/2 ADR TO HCTZ Diagnosis Discharge Diagnosis (1) Generalized weakness: Status: Acute Code(s): R53.1 - Weakness (2) Uncontrolled hypertension: Status: Acute Code(s): I10 - Essential (primary) hypertension (3) Lactic acidosis: Status: Acute Code(s): E87.20 - Acidosis, unspecified (4) Leukocytosis: Status: Acute Code(s): D72.829 - Elevated white blood cell count, unspecified Qualifiers: Leukocytosis type: unspecified Qualified Code(s): D72.829 - Elevated white blood cell count, unspecified (5) Acute hyponatremia: Status: Acute Code(s): E87.1 - Hypo-osmolality and hyponatremia Plan Hyponatremia-etiology unclear at this time - Sodium at 119 on presentation - Now up to 128 - Repeat sodium in a.m. - Not completely indicative of SIADH - Will continue fluid restrict to 1250 cc daily - Continue salt tablets 1 g 3 times daily - Continue to hold HCTZ and will discontinue at discharge - TSH is within normal limits - Cortisol levels within normal limits Generalized weakness/debility - PT/OT consultation - Patient resides in a [facility] at baseline with intent to return home once medical issues are stable Lactic acidosis - Initially thought it was related to metformin however with normal renal function seems unlikely - Highly suspect patient may have had a seizure prior to arrival or while in the emergency department and therefore elevated lactic acid with very rapid resolution - No signs of infection as patient has unremarkable sed rate, CRP, and procalcitonin Leukocytosis - No infectious etiology identified as of yet - Will monitor clinically - Sed rate/CRP/Pro-Jake are unremarkable - Urine cultures no growth - Blood cultures pending Essential hypertension/hyperlipidemia - With discontinuation of HCTZ blood pressures remain elevated - Continue Coreg 12.5 mg p.o. twice daily - Add hydralazine 50 mg 3 times daily - continue amlodipine 10 mg daily - Continue ARB - Continue statin BPH with obstruction - Continue Flomax Seizure disorder - Continue phenobarb - Continue Keppra - Levels are pending for both drugs--> likely will not have Keppra level Schizophrenia - Continue home risperidone Hypothyroidism - Continue home levothyroxine Seasonal allergies Open continue home loratadine - Continue home nasal spray DM-2 - A1c is 6.1 indicative of good control - Patient on metformin as an outpatient 1000 mg p.o. twice daily - Hold for now - SSI with Accu-Cheks as ordered Vitamin D deficiency - Continue home vitamin D supplementation History of vitamin B12 deficiency - Continue oral replacement Chronic constipation - Continue home bowel regimen Obesity - BMI is 30.9 - Recommend weight loss - Complicates treatment, prognosis, outcomes DVT prophylaxis - Continue enoxaparin 40 daily CODE STATUS - Patient is listed as full code unverified - No paperwork from [facility] indicating what his CODE STATUS is and patient is not able to have that conversation - Trying to touch base with the chcf to see what his CODE STATUS is so we can addend the order Medications at Discharge Home Medications loratadine 10 mg tablet 10 mg PO DAILY allergies 07/16/16 omega 1-prr-fnd-fish oil 300 mg-1,000 mg capsule 1 ea PO BID 07/16/16 risperidone 3 mg tablet 3 mg PO QHS 07/16/16 atorvastatin 40 mg tablet 40 mg PO QHS 11/27/19 metformin 1,000 mg tablet 1,000 mg PO BID 11/27/19 fluticasone propionate 50 mcg/actuation nasal spray,suspension 1 spray intranasal QHS 12/02/19 polyethylene glycol 3350 17 gram oral powder packet 17 g PO BID 12/02/19 tamsulosin 0.4 mg capsule 0.4 mg PO DAILY 12/02/19 levothyroxine 50 mcg tablet 50 mcg PO QDAY 11/28/23 cholecalciferol (vitamin D3) 1,250 mcg (50,000 unit) capsule 1,250 mcg PO QMONTH #1 cap 05/28/24 mecobalamin (vitamin B12) 1,000 mcg chewable tablet (B12 Active) 1,000 mcg PO DAILY #30 tabs 05/28/24 chlorhexidine gluconate 0.12 % mouthwash 15 ml buccal BID 11/26/24 olmesartan 40 mg tablet 40 mg PO QAM #30 tabs 11/26/24 phenobarbital 60 mg tablet 120 mg (2 x 60 mg) PO QHS #56 tabs 11/26/24 amlodipine 10 mg tablet (Norvasc) 10 mg PO DAILY #30 tabs 12/19/24 beta carotene 30 mg capsule 30 mg PO DAILY 12/22/24 levetiracetam 1,000 mg tablet 1,000 mg PO BID 12/22/24 carvedilol 25 mg tablet 25 mg PO BIDCM #60 tabs 01/02/25 hydralazine 50 mg tablet 50 mg PO TID #90 (more content not included)...[facility]10-09[facility]2025 Progress note Author Alice [facility] Note Date/Time January 01, 2025 3: 37pm [facility] Medical Records Department [address] [place] [address] Progress Note - Hospitalist 01/01/25 1532 MR#: [id number] Acct: [id number] Name: NAYLA BENNETT Rep #:[id number] : 1955 69 From: Alice Mckeon DO PCP: Dr. Eddi Lynn MD Status:ADM IN Location: [place] [id number] Reason for Visit Chief Complaint: Multiple Falls. Subjective Subjective No issues overnight. Patient is verbal but unintelligible. Still trying to find out CODE STATUS from [facility] as there was none sent and we have not yet been able to get a hold of them to figure out answer to this. Objective Data Objective Data Vital Signs: Vital Signs Temp Pulse Resp BP Pulse Ox O2 Del Method 98.2 F 88 18 150/68 H 97 Room Air 01/01/25 11:00 01/01/25 14:16 01/01/25 11:00 01/01/25 11:00 01/01/25 11:00 01/01/25 11:00 Oxygen Delivery Method Room Air Weight: 104.6 kg Body Mass Index (BMI) 31.2 Intake & Output: Intake and Output for Last 24 Hours 12/30/24 12/31/24 01/01/25 23:59 23:59 23:59 Intake Total 3065.7 / 3065.7 936.33 / 936.33 Output Total 400 / 400 Balance 3065.7 / 3065.7 536.33 / 536.33 Lab / Micro Data 01/01/25 07:24 12/31/24 21:33 Labs: Laboratory Results - last 24 hr 12/31/24 14:15: Cortisol PM Sample 12.70 H 12/31/24 16:21: POC Glucose 218 H 12/31/24 18:42: Sodium 126 L, Potassium 3.6, Chloride 91 L, Carbon Dioxide 22.5,Anion Gap 12, BUN 13, Creatinine 1.00, Estim Creat Clear Calc 85.52, Est GFR (MDRD) Non-Af 81, BUN/Creatinine Ratio 12.7, Glucose 155 H, Calcium 8.9 12/31/24 21:24: POC Glucose 125 H 12/31/24 21:33: Sodium 128 L, Potassium 4.0, Chloride 93 L, Carbon Dioxide 22.4,Anion Gap 12, BUN 13, Creatinine 0.94, Estim Creat Clear Calc 90.98, Est GFR (MDRD) Non-Af 87, BUN/Creatinine Ratio 13.3, Glucose 121 H, Calcium 9.0 12/31/24 22:33: Urine Osmolality 247 01/01/25 06:25: POC Glucose 137 H 01/01/25 07:24: WBC 13.0 H, RBC 4.23 L, Hgb 12.8 L, Hct 35.5 L, MCV 83.9, MCH 30.3, MCHC 36.1 H, RDW Std Deviation 37.0, RDW Coeff of Celi 12.1, Plt Count 303,MPV 8.9, ESR 16, Phosphorus 3.0, C-React Prot Ext Range 51.70 H, Procalcitonin 0.08 01/01/25 11:13: POC Glucose 192 H Micro: Microbiology 12/30/24 16:23 Urine, Catheterized Urine Culture - Final Culture exhibits no growth. Physical Exam Const alert, no apparent distress and well nourished; Negative for oriented x3 or average body habitus Constitutional Narrative: Obese, older, white male, sitting up in a chair at the bedside, TV is on, patient is awake, interacts but vocalizations are echolalia and speech is intermittently unintelligible General Appearance: cooperative HEENT normocephalic and head/scalp atraumatic Resp normal respiratory effort, no retractions, no use of accessory muscles and clearto auscultation bilaterally Auscultation: Negative for crackles, rhonchi or wheezes Cardio regular rate, regular rhythm, S1 normal heart sound, S2 normal heart sound, no murmurs, no rub, no gallops and no clicks GI normal to inspection, nondistended, normoactive bowel sounds, soft to palpation and non-tender Extremity no clubbing, cyanosis or edema Neuro moves all extremities and no focal motor deficits Neuro Narrative: Patient has difficulty following commands consistently, significant echolalia Sensorium / Orientation: awake and alert Speech: Negative for speech normal Psych Psych Narrative: Difficult to assess, patient is currently calm, noncombative Assessment & Plan Assessment/Plan (1) Generalized weakness: (2) Uncontrolled hypertension: (3) Lactic acidosis: (4) Leukocytosis: QUALIFIERS: Leukocytosis type: unspecified Qualified Code(s): D72.829 - Elevated white blood cell count, unspecified (5) Acute hyponatremia: PLAN: Plan Hyponatremia-etiology unclear at this time - Sodium at 119 on presentation - Now up to 128 - Repeat sodium in a.m. - Not completely indicative of SIADH - Will continue fluid restrict to 1250 cc daily - Continue salt tablets 1 g 3 times daily - Continue to hold HCTZ and will discontinue at discharge - TSH is within normal limits - Cortisol levels within normal limits Generalized weakness/debility - PT/OT consultation - Patient resides in a [facility] at baseline with intent to return home once medical issues are stable Lactic acidosis - Initially thought it was related to metformin however with normal renal function seems unlikely - Highly suspect patient may have had a seizure prior to arrival or while in theemergency department and therefore elevated lactic acid with very rapid resolution - No signs of infection as patient has unremarkable sed rate, CRP, and procalcitonin Leukocytosis - No infectious etiology identified as of yet - Will monitor clinically - Sed rate/CRP/Pro-Jake are unremarkable - Urine cultures no growth - Blood cultures pending Essential hypertension/hyperlipidemia - With discontinuation of HCTZ blood pressures remain elevated - Continue Coreg 12.5 mg p.o. twice daily - Add hydralazine 50 mg 3 times daily - continue amlodipine 10 mg daily - Continue ARB - Continue statin BPH with obstruction - Continue Flomax Seizure disorder - Continue phenobarb - Continue Keppra - Levels are pending for both drugs--> likely will not have Keppra level Schizophrenia - Continue home risperidone Hypothyroidism - Continue home levothyroxine Seasonal allergies Open continue home loratadine - Continue home nasal spray DM-2 - A1c is 6.1 indicative of good control - Patient on metformin as an outpatient 1000 mg p.o. twice daily - Hold for now - SSI with Accu-Cheks as ordered Vitamin D deficiency - Continue home vitamin D supplementation History of vitamin B12 deficiency - Continue oral replacement Chronic constipation - Continue home bowel regimen Obesity - BMI is 30.9 - Recommend weight loss - Complicates treatment, prognosis, outcomes DVT prophylaxis - Continue enoxaparin 40 daily CODE STATUS - Patient is listed as full code unverified - No paperwork from chcf indicating what his CODE STATUS is and patient isnot able to have that conversation - Trying to touch base with the chcf to see what his CODE STATUS is so we can addend the order Charges/Coding Visit Charges Inpatient E&M: 70587 Subs Hosp L2 01/01/25 1537 <Electronically signed by Alice Mckeon DO> Cosigner Signature (if applicable): CC: ~ Signed [facility] Work Phone: [phone] 358-945210-08-2025 Progress note Author Alice Mckeon [facility] Note Date/Time December 31, 2024 2: 09pm [facility] Medical Records Department [address] [place] [address] Progress Note - Hospitalist 12/31/24718 MR#: [id number] Acct: [id number] Name: NAYLA BENNETT Rep #:[id number] : 1955 69 From: Alice Mckeon DO PCP: Dr. Eddi Lynn MD Status:ADM IN Location: [place] [address] Reason for Visit Chief Complaint: Multiple Falls. Subjective Subjective No issues overnight. Patient does vocalize but repeats pretty much what I say to him somewhat unintelligibly. No meaningful interaction. Objective Data Objective Data Vital Signs: Vital Signs Temp Pulse Resp BP Pulse Ox O2 Del Method 97.5 F L 81 16 169/95 H 96 Room Air 12/31/24 02:00 12/31/24 06:00 12/31/24 06:00 12/31/24 06:00 12/31/24 06:00 12/31/24 06:46 Oxygen Delivery Method Room Air Weight: 103.5 kg Body Mass Index (BMI) 30.9 Intake & Output: Intake and Output for Last 24 Hours 12/29/24 12/30/24 12/31/24 23:59 23:59 23:59 Intake Total 3065.7 / 3065.7 Output Total 150 / 150 Balance 3065.7 / 3065.7 -150 / -150 Lab / Micro Data 12/31/24 10:42 12/31/24 10:42 Labs: Laboratory Results - last 24 hr 12/30/24 16:16: WBC 12.9 H, RBC 4.42 L, Hgb 13.6, Hct 36.5 L, MCV 82.6, MCH 30.8, MCHC 37.3 H, RDW Std Deviation 35.8, RDW Coeff of Celi 11.9, Plt Count 287,MPV 8.8, Immature Gran % (Auto) 0.500, Neut % (Auto) 64.2, Lymph % (Auto) 23.5, [place] % (Auto) 10.5 H, Eos % (Auto) 0.9, Baso % (Auto) 0.4, Absolute Neuts (auto)8.3 H, Absolute Lymphs (auto) 3.04, Nucleated RBC % 0, PT 13.3, INR 1.0, APTT 23.2 L, Sodium 119 L*, Potassium 4.1, Chloride 81 L, Carbon Dioxide 20.9 L, Anion Gap 17 H, BUN 12, Creatinine 0.93, Estim Creat Clear Calc 92.33, Est GFR (MDRD) Non-Af 88, BUN/Creatinine Ratio 12.8, Glucose 105 H, Lactic Acid 5.1 H*, Calcium 9.2, Total Bilirubin 0.36, AST 57 H, ALT 27, Alkaline Phosphatase 80, Total Protein 6.9, Albumin 4.5, Globulin 2.4, Albumin/Globulin Ratio 1.8 12/30/24 16:23: Urine Color Yellow, Urine Clarity Clear, Urine pH 6.0, Ur Specific [place] 1.010, Urine Protein 30 H, Urine Glucose (UA) 250 H, Urine Ketones Negative, Urine Occult Blood 25 H, Urine Nitrite Negative, Urine Bilirubin Negative, Urine Urobilinogen Normal, Ur Leukocyte Esterase Negative, Urine RBC 0-5 SEEN, Urine WBC 0 SEEN, Ur Squamous Epith Cells 0 SEEN, Urine Bacteria 0 SEEN, Urine Mucus 0 SEEN 12/30/24 20:36: Lactic Acid 1.4 12/30/24 22:46: Sodium 123 L, Potassium 3.7, Chloride 89 L, Carbon Dioxide 18.4 L, Anion Gap 15, BUN 10, Creatinine 0.86, Estim Creat Clear Calc 99.44, Est GFR (MDRD) Non-Af 93, BUN/Creatinine Ratio 11.2, Glucose 130 H, Serum Osmolality 256L, Lactic Acid < 1.0, Calcium 8.4, Magnesium 1.6, Total Bilirubin 0.49, AST 56 H, ALT 26, Alkaline Phosphatase 74, Total Protein 6.6, Albumin 4.1, Globulin 2.5,Albumin/Globulin Ratio 1.6, Vitamin B12 789, Serum Folate 10.80, TSH 2.890 12/30/24 23:19: POC Glucose 129 H 12/31/24 01:45: Sodium 122 L, Potassium 3.7, Chloride 87 L, Carbon Dioxide 20.1 L, Anion Gap 14, BUN 10, Creatinine 0.82, Estim Creat Clear Calc 104.29, Est GFR(MDRD) Non-Af 94, BUN/Creatinine Ratio 12.2, Glucose 141 H, Calcium 8.3 12/31/24 05:42: Sodium 123 L, Potassium 3.7, Chloride 89 L, Carbon Dioxide 21.4,Anion Gap 13, BUN 10, Creatinine 0.89, Estim Creat Clear Calc 96.09, Est GFR (MDRD) Non-Af 92, BUN/Creatinine Ratio 11.3, Glucose 136 H, Calcium 8.3 12/31/24 06:45: POC Glucose 125 H ABG Data ABG results: ABG 12/30/24 22:11 Specimen Type YEIMI Sample Site Not entered VBG pH 7.45 H VBG pO2 52 H VBG HCO3 24 VBG Total CO2 25 VBG O2 Sat (Calc) 88 H VBG Base Excess 0 POC Mix VBG pCO2 Pt Tmp 35.4 L O2 Delivery Device Room Air Radiography Diagnostic Testing: Radiology Impression Brain CT 12/30/24 15:56 IMPRESSION: No acute intracranial abnormality. Reading Location: [address] Cervical Spine CT 12/30/24 15:56 IMPRESSION: No acute osseous abnormalities. Spondylosis. Reading Location: [address] Abdomen/Pelvis CT 12/30/24 18:03 IMPRESSION: Distended urinary bladder with mild hydroureter bilaterally which may reflect reflux. Otherwise no acute intra-abdominal process. Reading Location: [facility] Physical Exam Const alert, no apparent distress and well nourished; Negative for oriented x3 or average body habitus Constitutional Narrative: Obese, older, white male, lying in bed, awake, interacts but vocalizations are echolalia and speech is intermittently unintelligible HEENT head/scalp atraumatic and moist oral mucous membranes Head and Scalp: normocephalic Eyes conjunctivae normal Eyes Narrative: No scleral icterus Neck supple Neck Narrative: Trachea midline, neck is short and thick Resp normal respiratory effort, no retractions, no use of accessory muscles and clearto auscultation bilaterally Auscultation: Negative for crackles, rhonchi or wheezes Cardio regular rate, regular rhythm, S1 normal heart sound, S2 normal heart sound, no murmurs, no rub, no gallops and no clicks GI normal to inspection, nondistended, normoactive bowel sounds, soft to palpation and non-tender Extremity no clubbing, cyanosis or edema Extremity Narrative: Decreased lean muscle mass Skin Skin Narrative: No significant lesions noted, turgor is normal, somewhat pale appearing Neuro no focal motor deficits Neuro Narrative: Patient has difficulty following commands consistently, significant echolalia Speech: Negative for speech normal Psych Psych Narrative: Difficult to assess Assessment & Plan Assessment/Plan (1) Generalized weakness: (2) Uncontrolled hypertension: (3) Lactic acidosis: (4) Leukocytosis: QUALIFIERS: Leukocytosis type: unspecified Qualified Code(s): D72.829 - Elevated white blood cell count, unspecified (5) Acute hyponatremia: PLAN: Plan Hyponatremia-etiology unclear at this time - Sodium at 119 on presentation - Now up to 123 - Continue serial sodium - Discontinue IV fluids - Would avoid further Lasix - Check uric acid/urine sodium and urine osmolality - Will fluid restrict to 1250 cc daily - Add salt tablets 1 g 3 times daily - Continue to hold HCTZ - TSH is within normal limits - Check cortisol level Generalized weakness/debility - PT/OT consultation - Patient resides in a chcf at baseline with intent to return home once medical issues are stable Lactic acidosis - Initially thought it was related to metformin however with normal renal function seems unlikely - Highly suspect patient may have had a seizure prior to arrival or while in theemergency department and therefore elevated lactic acid with very rapid resolution - No signs of infection Essential hypertension/hyperlipidemia - With discontinuation of HCTZ blood pressures remain elevated - Add Coreg 12.5 mg p.o. twice daily - Continue to hold HCTZ - continue amlodipine 10 mg daily - Continue ARB - Continue statin BPH with obstruction - Continue Flomax Seizure disorder - Continue phenobarb - Continue Keppra - Levels are pending for both drugs--> likely will not have Keppra level Leukocytosis - Remains elevated etiology is unclear - Cultures are pending - Will hold on antibiotics for now and continue to monitor clinically Schizophrenia - Continue home risperidone Hypothyroidism - Continue home levothyroxine Seasonal allergies Open continue home loratadine - Continue home nasal spray DM-2 - A1c is 6.1 indicative of good control - Patient on metformin as an outpatient 1000 mg p.o. twice daily - Hold for now - SSI with Accu-Cheks as ordered Vitamin D deficiency - Continue home vitamin D supplementation History of vitamin B12 deficiency - Continue oral replacement Chronic constipation - Continue home bowel regimen Obesity - BMI is 30.9 - Recommend weight loss - Complicates treatment, prognosis, outcomes DVT prophylaxis - Continue enoxaparin 40 daily CODE STATUS - Patient is listed as full code unverified - No paperwork from chcf indicating what his CODE STATUS is and patient isnot able to have that conversation - Trying to touch base with the chcf to see what his CODE STATUS is so we can addend the order Charges/Coding Visit Charges Inpatient E&M: 68092 Subs Hosp L3 12/31/24 1409 <Electronically signed by Alice Mckeon DO> Cosigner Signature (if applicable): CC: ~ Signed [facility] Work Phone: 1([phone] 877-549610-08-2025 History and physical note Author Jorge Novak [facility] Note Date/Time December 31, 2024 6: 26am [facility] Medical Records Department [address] [place] [address] H&P Exam - Hospitalist 12/30/242046 MR#: [id number] Acct: [id number] Name: NAYLA BENNETT Rep #:[id number] : 1955 69 From: Jorge Hernandez DO PCP: Dr. Eddi Lynn MD Status:ADM IN Location: ICU ICU01-1 [facility] - General General Date of Admission: 12/30/24 Date of Service: 12/30/24 Chief Complaint: Multiple Falls. HPI Narrative NAYLA BENNETT, is a 69 M with a past medical history of essential hypertension; onamlodipine, olmesartan and hydrochlorothiazide, hyperlipidemia; on atorvastatin,hypothyroidism; on levothyroxine, obesity (class I); with BMI of 31.2 this admission, DM-2; of unknown control on metformin twice daily, history of schizophrenia; with developmental delay causing patient to be poorly verbal at baseline on risperidone nightly, seizure disorder (with absence seizures); on levetiracetam twice daily plus phenobarbital nightly followed by Dr. Feliciano of neurology, history of B12 deficiency, history of vitamin D deficiency, BPH; on tamsulosin, chronic constipation; on polyethylene glycol twice daily, seasonal allergies; on loratadine plus fluticasone nasal spray and recently diagnosed UTI; on unknown antibiotic who presents to [facility] ER after staff at his [facility] noted multiple falls. As indicated above Mr. Bennett is not a reliable historian as he is nonverbal at baseline. Therefore, information was gathered from chart, medical staff and computer. According to the records EMS was activated today after the staff at his ch[facility] noted multiple falls. The ER physician informing the patient is able to follow commands with no reports of seizure activity, significant injury with recent his multiple falls or excessive water intake. In the ER he was noted to have severe Acute Hyponatremia of 119 mmol/L present on admission suspected to be due to Adverse Drug Reaction to hydrochlorothiazide complicated by Leukocytosis of 12.9 K with Lactic Acidosis of 5.1 mmol/L both present on admission concerning for Adverse Drug Reaction to metformin with a correspondingnegative urinalysis and head CT without contrast that revealed no acute process,cervical spine CT that showed no acute osseous abnormalities with spondylosis and CT scan of abdomen and pelvis positive for evidence of distended urinary bladder with mild hydroureter bilaterally which may be reflux with no acute intra-abdominal process otherwise compounded by elevated blood pressure of 196/85 mmHg present on admission consistent with Uncontrolled Hypertension in the setting of otherwise unremarkable vital signs and laboratory studies. He was then admitted to the ICU for ongoing care for status is expected to extend beyond 2 midnights. [facility] Medical History (Updated 12/30/24 @ 21:[address] Jorge Herrera, DO) Developmental non-verbal disorder Vitamin B12 deficiency Epilepsy, unspecified, not intractable, without status epilepticus Schizophrenia Seizure disorder Hyperlipidemia HTN (hypertension) Diabetes mellitus, type II Home Medications ?Medication ?Instructions ?Recorded ?Last Taken ?Type loratadine 10 mg tablet 10 mg PO DAILY allergies Unknown History omega [id number]-[id number]-fish oil 300 1 ea PO BID 07/16/16 Unkn own History mg-1,000 mg capsule risperidone 3 mg tablet 3 mg PO QHS 07/16/16 Unknown History atorvastatin 40 mg tablet 40 mg PO QHS 11/27/19 Unknow n History metformin 1,000 mg tablet 1,000 mg PO BID 11/27/19 Unk nown History fluticasone propionate 50 1 spray intranasal QHS 12/01 Unknown History mcg/actuation nasal spray,suspension polyethylene glycol 3350 17 gram 17 g PO BID 12/02/19 Unknown History oral powder packet tamsulosin 0.4 mg capsule 0.4 mg PO DAILY 12/02/19 Unk nown History levothyroxine 50 mcg tablet 50 mcg PO QDAY 11/28/23 Un known History cholecalciferol (vitamin D3) 1,250 1,250 mcg PO QMONTH #1 cap 05/28/24 Unknown Rx mcg (50,000 unit) capsule mecobalamin (vitamin B12) 1,000 1,000 mcg PO DAILY #30 tabs 05/28/24 Unknown Rx mcg chewable tablet (B12 Active) chlorhexidine gluconate 0.12 % 15 ml buccal BID Unknown History mouthwash olmesartan 40 mg tablet 40 mg PO QAM #30 tabs Unknown Rx phenobarbital 60 mg tablet 120 mg (2 x 60 mg) PO QHS # 56 tabs 11/26/24 Unknown Rx amlodipine 10 mg tablet (Norvasc) 10 mg PO DAILY #30 t abs 12/19/24 Unknown Rx beta carotene 30 mg capsule 30 mg PO DAILY 12/22/24 Un known History levetiracetam 1,000 mg tablet 1,000 mg PO BID 12/22/24 Unknown History hydrochlorothiazide 25 mg tablet 25 mg PO DAILY Unknown History Allergy/AdvReac Type Severity Reaction Status Date / Time hydrochlorothiazide AdvReac Severe Hyponatremi Verified 12/30/24 21:31 a metformin AdvReac Severe Lactic Verified 12/30/24 21:31 Acidosis Surgical History No history of previous surgery Social History housing: other details: senior care Smoking Status: Never smoker Electronic Cigarette Use: not used second hand exposure: No alcohol intake: never substance use type: does not use seatbelt use: always ROS ROS Narrative Full review of systems was not possible due to patient's nonverbal status and developmental delay. Vital Signs Vital Signs Vital Signs: 12/30/24 15:48 12/30/24 15:52 12/30/24 16:09 Temperature 97.9 F Temperature Source Temporal Pulse Rate 87 Respiratory Rate 17 Respiratory Effort Normal Non-Labored Blood Pressure 158/85 H Blood Pressure Mean 109 Pulse Ox 95 Oxygen Delivery Method Room Air Room Air Room Air 12/30/24 17:08 12/30/24 18:25 12/30/24 19:00 Temperature 97.7 F L 98.1 F 98.1 F Temperature Source Temporal Temporal Oral Pulse Rate 85 86 92 Respiratory Rate 16 19 H 20 H Respiratory Effort Blood Pressure 169/71 H 175/96 H 197/111 H Blood Pressure Mean 103 122 139 Pulse Ox 95 98 97 Oxygen Delivery Method Room Air Room Air Room Air 12/30/24 19:43 12/30/24 20:01 12/30/24 20:16 Temperature 98.1 F 98.1 F Temperature Source Oral Oral Pulse Rate 96 95 97 Respiratory Rate 20 H 20 H 20 H Respiratory Effort Blood Pressure 205/95 H 198/91 H 198/91 H Blood Pressure Mean 131 126 126 Pulse Ox 97 96 97 Oxygen Delivery Method Room Air Room Air Room Air 12/30/24 20:31 12/30/24 20:43 Temperature 98.1 F Temperature Source Oral Pulse Rate 94 91 Respiratory Rate 20 H 18 Respiratory Effort Blood Pressure 196/85 H 196/85 H Blood Pressure Mean 122 122 Pulse Ox 96 96 Oxygen Delivery Method Room Air Room Air Weight Weight: 230 lb 2.601 oz Body Mass Index (BMI) 31.1 Physical Exam Const alert Constitutional Narrative: Patient is apparently nonverbal at baseline but is able to follow commands. General Appearance: cooperative HEENT normocephalic, head/scalp atraumatic, hearing grossly normal bilaterally and moist oral mucous membranes Eyes PERRL, EOMs intact bilaterally and conjunctivae normal Neck no lymphadenopathy, supple and no JVD Resp normal respiratory effort, no retractions, no use of accessory muscles and clearto auscultation bilaterally Cardio regular rate and regular rhythm GI normal to inspection, nondistended, normoactive bowel sounds, soft to palpation,non-tender and non-distended GI Narrative: Obese. Extremity normal to inspection and full ROM Skin Skin Narrative: Patient has no evidence of rash, abscess, wounds or jaundice. Neuro CN's II-XII intact bilaterally and moves all extremities Neuro Narrative: Patient is nonverbal at baseline. Sensorium / Orientation: awake and alert Psych affect normal Results Medical Records Data Attestation: I reviewed the patient's medical records Lab / Micro Data Attestation: I reviewed the patient's lab results. 12/30/24 16:16 12/31/24 05:42 Labs: Laboratory Results - last 24 hr 12/30/24 16:16: WBC 12.9 H, RBC 4.42 L, Hgb 13.6, Hct 36.5 L, MCV 82.6, MCH 30.8, MCHC 37.3 H, RDW Std Deviation 35.8, RDW Coeff of Celi 11.9, Plt Count 287,MPV 8.8, Immature Gran % (Auto) 0.500, Neut % (Auto) 64.2, Lymph % (Auto) 23.5, [place] % (Auto) 10.5 H, Eos % (Auto) 0.9, Baso % (Auto) 0.4, Absolute Neuts (auto)8.3 H, Absolute Lymphs (auto) 3.04, Nucleated RBC % 0, PT 13.3, INR 1.0, APTT 23.2 L, Sodium 119 L*, Potassium 4.1, Chloride 81 L, Carbon Dioxide 20.9 L, Anion Gap 17 H, BUN 12, Creatinine 0.93, Estim Creat Clear Calc 92.33, Est GFR (MDRD) Non-Af 88, BUN/Creatinine Ratio 12.8, Glucose 105 H, Lactic Acid 5.1 H*, Calcium 9.2, Total Bilirubin 0.36, AST 57 H, ALT 27, Alkaline Phosphatase 80, Total Protein 6.9, Albumin 4.5, Globulin 2.4, Albumin/Globulin Ratio 1.8 12/30/24 16:23: Urine Color Yellow, Urine Clarity Clear, Urine pH 6.0, Ur Specific [place] 1.010, Urine Protein 30 H, Urine Glucose (UA) 250 H, Urine Ketones Negative, Urine Occult Blood 25 H, Urine Nitrite Negative, Urine Bilirubin Negative, Urine Urobilinogen Normal, Ur Leukocyte Esterase Negative, Urine RBC 0-5 SEEN, Urine WBC 0 SEEN, Ur Squamous Epith Cells 0 SEEN, Urine Bacteria 0 SEEN, Urine Mucus 0 SEEN Imaging Radiology Impression Brain CT 12/30/24 15:56 IMPRESSION: No acute intracranial abnormality. Reading Location: [address] Cervical Spine CT 12/30/24 15:56 IMPRESSION: No acute osseous abnormalities. Spondylosis. Reading Location: [address] Abdomen/Pelvis CT 12/30/24 18:03 IMPRESSION: Distended urinary bladder with mild hydroureter bilaterally which may reflect reflux. Otherwise no acute intra-abdominal process. Reading Location: [facility] Assessment & Plan Assessment/Plan (1) Acute hyponatremia: (2) Adverse drug reaction: QUALIFIERS: Encounter type: initial encounter Qualified Code(s): T50.905A - Adverse effect of unspecified drugs, medicaments and biological substances, initial encounter (3) Adverse effect of metformin: QUALIFIERS: Encounter type: initial encounter Qualified Code(s): T38.3X5A - Adverse effect of insulin and oral hypoglycemic [antidiabetic] drugs, initial encounter (4) Leukocytosis: QUALIFIERS: Leukocytosis type: unspecified Qualified Code(s): D72.829 - Elevated white blood cell count, unspecified (5) Lactic acidosis: (6) Uncontrolled hypertension: (7) Generalized weakness: (8) Frequent falls: (9) Schizophrenia: QUALIFIERS: Schizophrenia type: unspecified Qualified Code(s): F20.9 - Schizophrenia, unspecified (10) Obesity (BMI 30.0-34.9): (11) BPH with urinary obstruction: (12) Seizure disorder: PLAN: Plan 1. Acute Hyponatremia of 119 mmol/L present on admission - Admit to ICU. Since NS IVF was begun in the ER with patient able to follow commands we will continue with this treatment for now with STAT repeat sodium level pending at this time. If his sodium level remains unchanged or has fallen hypertonic saline will be initiated. Check urine and serum osmolality before treating with IV furosemide. We will check serial BMP's every 4 hours to aim for gradual correction of ~8-10 mmol/L per 24 hours. Finally, we will consult pulmonary/critical care to see this patient on rounds in a.m. for further recommendations without appreciated in advance. 2. Adverse Drug Reaction to hydrochlorothiazide triggering #1 - Stop hydrochlorothiazide and add to list of allergies to prevent recurrence. 3. Leukocytosis of 12.9 K with Lactic Acidosis of 5.1 mmol/L both present on admission concerning for Sepsis but with a corresponding negative urinalysis and no overt signs of infection in the setting of a recently diagnosed UTI on an unknown antibiotic due to suspected Adverse Drug Reaction to metformin complicating #1 & #2 - Stop metformin as it is the suspected cause of his lactic acidosis with dayshift hospitalist to start alternative agent if deemed necessary. Patient was empirically treated with IV piperacillin-tazobactam in ER which will be stopped as there are no signs of infection at this time with patient also not suspected to have sepsis. 4. Uncontrolled Hypertension with an elevated blood pressure of 196/85 mmHg present on admission compounding #1 - #3 - Resume amlodipine and olmesartan plus give furosemide 40 mg IV once in addition to hydralazine IV prn for systolic blood pressure > 160 mmHg. 5. Generalized Weakness with Multiple Falls recently attributable to #1- #4 - PT/OT and Case Management to consult and treat on-rounds in the AM for further recommendations with help appreciated in advance. 6. History of schizophrenia; with developmental delay causing patient to be poorly verbal at baseline on risperidone nightly adding to the medical complexity of #1 - #5 - Continue risperidone as previous. 7. Obesity (class I); with BMI of 31.2 this admission adding to the burden of disease outlined from #1 - #6 - Weight loss is unlikely given patient's chronic illness and limited cognition. Check TSH. 8. BPH; on tamsulosin - Noted with CT evidence of bladder distention with mild hydroureter bilaterally so we will add finasteride. 9. Seizure disorder (with absence seizures); on levetiracetam twice daily plus phenobarbital nightly followed by Dr. Feliciano of neurology - Maintain current AED regimen plus check levetiracetam and phenobarbital levels. Finally, we will give IV lorazepam as needed for breakthrough seizure activity. 10. Hyperlipidemia; on atorvastatin - Maintain statin and check Lipid Profile. 11. Hypothyroidism; on levothyroxine - Continue levothyroxine as before and check TSH. 12. DM-2; of unknown control on metformin twice daily - Stop metformin and add to list of allergies as outlined in #3. ADA diet. FSBS q. AC/HS plus lowest intensity SSI. Check HgbA1c to objectively assess quality if diabetic control. 13. History of B12 deficiency - Noted with patient on oral replacement which will be continued. 14. History of vitamin D deficiency - Noted with patient currently on oral supplement which will be resumed. 15. Chronic constipation; on polyethylene glycol twice daily - Resume bowel regimen. 16. Seasonal allergies; on loratadine plus fluticasone nasal spray - Stable. 17. DVT prophylaxis - Enoxaparin 40 mg sq daily plus SCD's. Total time: Approximately (but not less than) 75 minutes. Update: Patient's first sodium recheck in ICU was 123 mmol/L with patient continued on NS IVF. Second lactate also decreased to 1.4 mmol/L. Charges/Coding Visit Charges Inpatient E&M: 49204 Init Hosp L3 12/31/24 0626 <Electronically signed by Jorge Herrera DO> Cosigner Signature (if applicable): CC: Dr. Eddi Lynn MD; Dr. Jorge Herrera DO~ Signed [facility] Work Phone: 1(865) 629-895010-07-2025 Discharge summary Author Nestor Stauffer [facility] Note Date/Time December 30, 2024 8: 49pm [facility] Medical Records Department [address] [place] [address] Emergency Department Summary 12/30/24 MR#: [id number] Acct: [id number] Name: NAYLA BENNETT Rep #:[id number] : 1955 69 From: Nestor Stauffer DO PCP: Dr. Eddi Lynn MD Status:REG ER Location: ED HPI History of Present Illness Chief Complaint: Fall Narrative Narrative: Patient is a 69-year-old male with a past medical history of nonverbal at baseline, schizophrenia, seizures, hypertension, hypokalemia, type 2 diabetes who presents to the emergency department with a chief complaint of multiple falls today according to EMS. History of present illness is unobtainable from the patient therefore acute care caveat applies. According to them he is currently being treated for UTI however they are unsure what antibiotics he is on. [facility] Medical History Developmental non-verbal disorder Vitamin B12 deficiency Epilepsy, unspecified, not intractable, without status epilepticus Schizophrenia Seizure disorder Hyperlipidemia HTN (hypertension) Diabetes mellitus, type II Home Medications ?Medication ?Instructions ?Recorded ?Last Taken ?Type loratadine 10 mg tablet 10 mg PO DAILY allergies Unknown History omega 4-fek-kff-fish oil 300 1 ea PO BID 07/16/16 Unkn own History mg-1,000 mg capsule risperidone 3 mg tablet 3 mg PO QHS 07/16/16 Unknown History atorvastatin 40 mg tablet 40 mg PO QHS 11/27/19 Unknow n History metformin 1,000 mg tablet 1,000 mg PO BID 11/27/19 Unk nown History fluticasone propionate 50 1 spray intranasal QHS 12/01 Unknown History mcg/actuation nasal spray,suspension polyethylene glycol 3350 17 gram 17 g PO BID 12/02/19 Unknown History oral powder packet tamsulosin 0.4 mg capsule 0.4 mg PO DAILY 12/02/19 Unk nown History levothyroxine 50 mcg tablet 50 mcg PO QDAY 11/28/23 Un known History cholecalciferol (vitamin D3) 1,250 1,250 mcg PO QMONTH #1 cap 05/28/24 Unknown Rx mcg (50,000 unit) capsule mecobalamin (vitamin B12) 1,000 1,000 mcg PO DAILY #30 tabs 05/28/24 Unknown Rx mcg chewable tablet (B12 Active) chlorhexidine gluconate 0.12 % 15 ml buccal BID Unknown History mouthwash olmesartan 40 mg tablet 40 mg PO QAM #30 tabs Unknown Rx phenobarbital 60 mg tablet 120 mg (2 x 60 mg) PO QHS # 56 tabs 11/26/24 Unknown Rx amlodipine 10 mg tablet (Norvasc) 10 mg PO DAILY #30 t abs 12/19/24 Unknown Rx beta carotene 30 mg capsule 30 mg PO DAILY 12/22/24 Un known History levetiracetam 1,000 mg tablet 1,000 mg PO BID 12/22/24 Unknown History hydrochlorothiazide 25 mg tablet 25 mg PO DAILY Unknown History Allergy/AdvReac Type Severity Reaction Status Date / Time No Known Allergies Allergy Verified 11/26/24 10:35 Surgical History No history of previous surgery Social History housing: other details: senior care Smoking Status: Never smoker Electronic Cigarette Use: not used second hand exposure: No alcohol intake: never substance use type: does not use seatbelt use: always ROS ROS ED ROS Narrative Review of systems unobtainable from the patient secondary to him being nonverbalat baseline therefore acute care caveat applies EXAM Physical Exam Narrative Exam Narrative: General: Patient lying in bed rest comfortably does not appear to be acute distress Head: Atraumatic, normocephalic Eyes: PERRL bilaterally, EOMI bilaterally, no conjunctival injection noted Neck: Soft, supple, trachea midline Cardiovascular: Regular rate and rhythm Respiratory: Clear to auscultation bilaterally Abdomen: Soft, nondistended Extremities: Patient moving all extremities on exam Neurological: Patient is at his baseline according to EMS. He was following commands when asked to raise his hands bilaterally he was able to do so. When he is asked to close his eyes he was able to do this as well. Skin: Warm, dry, intact no rashes or lesions noted Const Vital Signs: 12/30/24 15:48 12/30/24 15:52 12/30/24 16:09 Temperature 97.9 F Temperature Source Temporal Pulse Rate 87 Respiratory Rate 17 Respiratory Effort Normal Non-Labored Blood Pressure 158/85 H Blood Pressure Mean 109 Pulse Ox 95 Oxygen Delivery Method Room Air Room Air Room Air 12/30/24 17:08 12/30/24 18:25 12/30/24 19:00 Temperature 97.7 F L 98.1 F 98.1 F Temperature Source Temporal Temporal Oral Pulse Rate 85 86 92 Respiratory Rate 16 19 H 20 H Respiratory Effort Blood Pressure 169/71 H 175/96 H 197/111 H Blood Pressure Mean 103 122 139 Pulse Ox 95 98 97 Oxygen Delivery Method Room Air Room Air Room Air 12/30/24 19:43 12/30/24 20:01 12/30/24 20:16 Temperature 98.1 F 98.1 F Temperature Source Oral Oral Pulse Rate 96 95 97 Respiratory Rate 20 H 20 H 20 H Respiratory Effort Blood Pressure 205/95 H 198/91 H 198/91 H Blood Pressure Mean 131 126 126 Pulse Ox 97 96 97 Oxygen Delivery Method Room Air Room Air Room Air 12/30/24 20:31 12/30/24 20:43 Temperature 98.1 F Temperature Source Oral Pulse Rate 94 91 Respiratory Rate 20 H 18 Respiratory Effort Blood Pressure 196/85 H 196/85 H Blood Pressure Mean 122 122 Pulse Ox 96 96 Oxygen Delivery Method Room Air Room Air MDM MDM MDM Narrative Medical decision making narrative: Patient is a 69-year-old male who presents to the emergency department chief complaint of multiple falls earlier today. On the differential diagnosis includes but not limited to generalized weakness, UTI, intracranial hemorrhage, cervical spine fracture, electrolyte abnormality. Once the workup is obtained and reviewed he will be reevaluated. According to our records here there is no evidence of anticoagulants on his medication list. Patient's CBC was significant for leukocytosis 12,000, he was 13.6, plate count was noted to be 287. Patient sodium was low indicating hyponatremia at 119, potassium normal at 4.1, creatinine was noted be normal at 0.93. Patient has anion gap of 17 with carbon dioxide low at 20.9. Patient glucose was noted to be 105. Patient lactic acid elevated to 5.1, AST and ALT are 5727 respectively. Patient's urinalysis was reviewed which showed negative nitrites negative leukocyte esterase no bacteria noted. Patient CT head brain without contrast showed no acute intracranial abnormalities. Patient CT cervical spine reviewed showed no acute osseous abnormalities. Given the patient's white count lactic acidosis with being treated for UTI although his urine does not suggest this is a UTI we will add a CT abdomen pelvis IV contrast to ensure there is no intra-abdominal pathology currently andthen the patient will be admitted to the ICU. Patient has not had any seizures or any reports of seizures therefore at this point in time with his sodium I do not believe he warrants hypertonic saline. At 8:[address] resulted and showed hydroureter bilaterally but suggestive of reflux there is no identifiable source of infection still at this point time. Will discuss case with hospitalist for admission to the ICU. Discussed case with hospitalist Dr. Johnson who accept patient for admission. Critical care time 37 minutes. Lab Data Labs: Laboratory Results - last 24 hr 12/30/24 12/30/24 16:16 16:23 WBC 12.9 H RBC 4.42 L Hgb 13.6 Hct 36.5 L MCV 82.6 MCH 30.8 MCHC 37.3 H RDW Std Deviation 35.8 RDW Coeff of Celi 11.9 Plt Count 287 MPV 8.8 Immature Gran % (Auto) 0.500 Neut % (Auto) 64.2 Lymph % (Auto) 23.5 [place] % (Auto) 10.5 H Eos % (Auto) 0.9 Baso % (Auto) 0.4 Absolute Neuts (auto) 8.3 H Absolute Lymphs (auto) 3.04 Nucleated RBC % 0 PT 13.3 INR 1.0 APTT 23.2 L Sodium 119 L* Potassium 4.1 Chloride 81 L Carbon Dioxide 20.9 L Anion Gap 17 H BUN 12 Creatinine 0.93 Estim Creat Clear Calc 92.33 Est GFR (MDRD) Non-Af 88 BUN/Creatinine Ratio 12.8 Glucose 105 H Lactic Acid 5.1 H* Calcium 9.2 Total Bilirubin 0.36 AST 57 H ALT 27 Alkaline Phosphatase 80 Total Protein 6.9 Albumin 4.5 Globulin 2.4 Albumin/Globulin Ratio 1.8 Urine Color Yellow Urine Clarity Clear Urine pH 6.0 Ur Specific [place] 1.010 Urine Protein 30 H Urine Glucose (UA) 250 H Urine Ketones Negative Urine Occult Blood 25 H Urine Nitrite Negative Urine Bilirubin Negative Urine Urobilinogen Normal Ur Leukocyte Esterase Negative Urine RBC 0-5 SEEN Urine WBC 0 SEEN Ur Squamous Epith Cells 0 SEEN Urine Bacteria 0 SEEN Urine Mucus 0 SEEN Radiography Diagnostic Testing: Clinical Impression(s) from Imaging Studies Brain CT 12/30/24 15:56 IMPRESSION: No acute intracranial abnormality. Reading Location: [address] Cervical Spine CT 12/30/24 15:56 IMPRESSION: No acute osseous abnormalities. Spondylosis. Reading Location: [address] Abdomen/Pelvis CT 12/30/24 18:03 IMPRESSION: Distended urinary bladder with mild hydroureter bilaterally which may reflect reflux. Otherwise no acute intra-abdominal process. Reading Location: [facility] Discharge Plan Dx/Rx/DC Orders Clinical Impression: Fall, Generalized weakness, Hyponatremia, Type 2 diabetes mellitus, History of seizure Disposition Disposition: Acute Care Hospital [facility] What to do if you have Problems For any increased pain, shortness of breath, bleeding, nausea or vomiting, chestpain, or any unexpected problems, contact your Primary Care Provider. Call [facility] ([phone]) or report to the closest Emergency Room. Call 911 if necessary. 12/30/242048 <Electronically signed by Nestor Stauffer DO> Cosigner Signature (if applicable): CC: Dr. Eddi Lynn MD ~ Signed [facility] Work Phone: 1(716) 560-490810-07-2025 Discharge summary [facility] Medical Records Department [address] [place] [address] Emergency Department Summary 12/30/24 MR#: [id number] Acct: [id number] Name: NAYLA BENNETT Rep #:[id number] : 1955 69 From: Nestor Stauffer DO PCP: Dr. Eddi Lynn MD Status:REG ER Location: ED HPI History of Present Illness Chief Complaint: Fall Narrative Narrative: Patient is a 69-year-old male with a past medical history of nonverbal at baseline, schizophrenia, seizures, hypertension, hypokalemia, type 2 diabetes who presents to the emergency department with achief complaint of multiple falls today according to EMS. History of present illness is unobtainable from the patient therefore acute care caveat applies. According to them he is currently being treated for UTI however they are unsure what antibiotics he is on. [facility] Medical History Developmental non-verbal disorder Vitamin B12 deficiency Epilepsy, unspecified, not intractable, without status epilepticus Schizophrenia Seizure disorder Hyperlipidemia HTN (hypertension) Diabetes mellitus, type II Home Medications ?Medication ?Instructions ?Recorded ?Last Taken ?Type loratadine 10 mg tablet 10 mg PO DAILY allergies Unknown History omega 9-ktp-zee-fish oil 300 1 ea PO BID 07/16/16 Unkn own History mg-1,000 mg capsule risperidone 3 mg tablet 3 mg PO QHS 07/16/16 Unknown History atorvastatin 40 mg tablet 40 mg PO QHS 11/27/19 Unknow n History metformin 1,000 mg tablet 1,000 mg PO BID 11/27/19 Unk nown History fluticasone propionate 50 1 spray intranasal QHS 12/01 Unknown History mcg/actuation nasal spray,suspension polyethylene glycol 3350 17 gram 17 g PO BID 12/02/19 Unknown History oral powder packet tamsulosin 0.4 mg capsule 0.4 mg PO DAILY 12/02/19 Unk nown History levothyroxine 50 mcg tablet 50 mcg PO QDAY 11/28/23 Un known History cholecalciferol (vitamin D3) 1,250 1,250 mcg PO QMONTH #1 cap 05/28/24 Unknown Rx mcg (50,000 unit) capsule mecobalamin (vitamin B12) 1,000 1,000 mcg PO DAILY #30 tabs 05/28/24 Unknown Rx mcg chewable tablet (B12 Active) chlorhexidine gluconate 0.12 % 15 ml buccal BID Unknown History mouthwash olmesartan 40 mg tablet 40 mg PO QAM #30 tabs Unknown Rx phenobarbital 60 mg tablet 120 mg (2 x 60 mg) PO QHS # 56 tabs 11/26/24 Unknown Rx amlodipine 10 mg tablet (Norvasc) 10 mg PO DAILY #30 t abs 12/19/24 Unknown Rx beta carotene 30 mg capsule 30 mg PO DAILY 12/22/24 Un known History levetiracetam 1,000 mg tablet 1,000 mg PO BID 12/22/24 Unknown History hydrochlorothiazide 25 mg tablet 25 mg PO DAILY Unknown History Allergy/AdvReac Type Severity Reaction Status Date / Time No Known Allergies Allergy Verified 11/26/24 10:35 Surgical History No history of previous surgery Social History housing: other details: senior care Smoking Status: Never smoker Electronic Cigarette Use: not used second hand exposure: No alcohol intake: never substance use type: does not use seatbelt use: always ROS ROS ED ROS Narrative Review of systems unobtainable from the patient secondary to him being nonverbalat baseline therefore acute care caveat applies EXAM Physical Exam Narrative Exam Narrative: General: Patient lying in bed rest comfortably does not appear to be acute distress Head: Atraumatic, normocephalic Eyes: PERRL bilaterally, EOMI bilaterally, no conjunctival injection noted Neck: Soft, supple, trachea midline Cardiovascular: Regular rate and rhythm Respiratory: Clear to auscultation bilaterally Abdomen: Soft, nondistended Extremities: Patient moving all extremities on exam Neurological: Patient is at his baseline according to EMS. He was following commands when asked to raise his hands bilaterally he was able to do so. When he is asked to close his eyes he was able to do this as well. Skin: Warm, dry, intact no rashes or lesions noted Const Vital Signs: 12/30/24 15:48 12/30/24 15:52 12/30/24 16:09 Temperature 97.9 F Temperature Source Temporal Pulse Rate 87 Respiratory Rate 17 Respiratory Effort Normal Non-Labored Blood Pressure 158/85 H Blood Pressure Mean 109 Pulse Ox 95 Oxygen Delivery Method Room Air Room Air Room Air 12/30/24 17:08 12/30/24 18:25 12/30/24 19:00 Temperature 97.7 F L 98.1 F 98.1 F Temperature Source Temporal Temporal Oral Pulse Rate 85 86 92 Respiratory Rate 16 19 H 20 H Respiratory Effort Blood Pressure 169/71 H 175/96 H 197/111 H Blood Pressure Mean 103 122 139 Pulse Ox 95 98 97 Oxygen Delivery Method Room Air Room Air Room Air 12/30/24 19:43 12/30/24 20:01 12/30/24 20:16 Temperature 98.1 F 98.1 F Temperature Source Oral Oral Pulse Rate 96 95 97 Respiratory Rate 20 H 20 H 20 H Respiratory Effort Blood Pressure 205/95 H 198/91 H 198/91 H Blood Pressure Mean 131 126 126 Pulse Ox 97 96 97 Oxygen Delivery Method Room Air Room Air Room Air 12/30/24 20:31 12/30/24 20:43 Temperature 98.1 F Temperature Source Oral Pulse Rate 94 91 Respiratory Rate 20 H 18 Respiratory Effort Blood Pressure 196/85 H 196/85 H Blood Pressure Mean 122 122 Pulse Ox 96 96 Oxygen Delivery Method Room Air Room Air MDM MDM MDM Narrative Medical decision making narrative: Patient is a 69-year-old male who presents to the emergency department chief complaint of multiple falls earlier today. On the differential diagnosis includes but not limited to generalized weakness,UTI, intracranial hemorrhage, cervical spine fracture, electrolyte abnormality. Once the workup is obtained and reviewed he will be reevaluated. According to our records here there is no evidence of anticoagulants on his medication list. Patient's CBC was significant for leukocytosis 12,000, he was 13.6, plate count was noted to be 287. Patient sodium was low indicating hyponatremia at 119, potassium normal at 4.1, creatinine was noted be normal at 0.93. Patient has anion gap of 17 with carbon dioxide low at 20.9. Patient glucose was noted to be 105. Patient lactic acid elevated to 5.1, AST and ALT are 5727 respectively. Patient's urinalysis was reviewed which showed negative nitrites negative leukocyte esterase no bacteria noted. Patient CT head brain without contrast showed no acute intracranial abnormalities. Patient CT cervical spine reviewed showed no acute osseous abnormalities. Given the patient's white count lactic acidosis with being treated for UTI although his urine does not suggest this is a UTI we will add a CT abdomen pelvis IV contrast to ensure there is no intra-abdominal pathology currently andthen the patient will be admitted to the ICU. Patient has not had anyseizures or any reports of seizures therefore at this point in time with his sodium I do not believe he warrants hypertonic saline. At 8:[address] resulted and showed hydroureter bilaterally but suggestive of reflux there is no identifiable source of infection still at this point time. Will discuss case with hospitalist for admission to the ICU. Discussed case with hospitalist Dr. Johnson who accept patient for admission. Critical care time 37 minutes. Lab Data Labs: Laboratory Results - last 24 hr 12/30/24 12/30/24 16:16 16:23 WBC 12.9 H RBC 4.42 L Hgb 13.6 Hct 36.5 L MCV 82.6 MCH 30.8 MCHC 37.3 H RDW Std Deviation 35.8 RDW Coeff of Celi 11.9 Plt Count 287 MPV 8.8 Immature Gran % (Auto) 0.500 Neut % (Auto) 64.2 Lymph % (Auto) 23.5 [place] % (Auto) 10.5 H Eos % (Auto) 0.9 Baso % (Auto) 0.4 Absolute Neuts (auto) 8.3 H Absolute Lymphs (auto) 3.04 Nucleated RBC % 0 PT 13.3 INR 1.0 APTT 23.2 L Sodium 119 L* Potassium 4.1 Chloride 81 L Carbon Dioxide 20.9 L Anion Gap 17 H BUN 12 Creatinine 0.93 Estim Creat Clear Calc 92.33 Est GFR (MDRD) Non-Af 88 BUN/Creatinine Ratio 12.8 Glucose 105 H Lactic Acid 5.1 H* Calcium 9.2 Total Bilirubin 0.36 AST 57 H ALT 27 Alkaline Phosphatase 80 Total Protein 6.9 Albumin 4.5 Globulin 2.4 Albumin/Globulin Ratio 1.8 Urine Color Yellow Urine Clarity Clear Urine pH 6.0 Ur Specific [place] 1.010 Urine Protein 30 H Urine Glucose (UA) 250 H Urine Ketones Negative Urine Occult Blood 25 H Urine Nitrite Negative Urine Bilirubin Negative Urine Urobilinogen Normal Ur Leukocyte Esterase Negative Urine RBC 0-5 SEEN Urine WBC 0 SEEN Ur Squamous Epith Cells 0 SEEN Urine Bacteria 0 SEEN Urine Mucus 0 SEEN Radiography Diagnostic Testing: Clinical Impression(s) from Imaging Studies Brain CT 12/30/24 15:56 IMPRESSION: No acute intracranial abnormality. Reading Location: [address] Cervical Spine CT 12/30/24 15:56 IMPRESSION: No acute osseous abnormalities. Spondylosis. Reading Location: [address] Abdomen/Pelvis CT 12/30/24 18:03 IMPRESSION: Distended urinary bladder with mild hydroureter bilaterally which may reflect reflux. Otherwise no acute intra-abdominal process. Reading Location: [facility] Discharge Plan Dx/Rx/DC Orders Clinical Impression: Fall, Generalized weakness, Hyponatremia, Type 2 diabetes mellitus, History of seizure Disposition Disposition: Acute Care Hospital [facility] What to do if you have Problems For any increased pain, shortness of breath, bleeding, nausea or vomiting, chestpain, or any unexpected problems, contact your Primary Care Provider. Call [facility] ([phone]) or report tothe closest Emergency Room. Call 911 if necessary. 12/30/242048 Cosigner Signature (if applicable): CC: Dr. Eddi Lynn MD ~ Signed [facility]10-07-2025 Radiology Diagnostic study note [facility] Imaging Services [address] [place] [address] Abdomen/Pelvis W IV Cont ONLY MR#: [id number] Acct: [id number] Name: NAYLA BENNETT Rep #: [id number] : 1955 M 69 From: Lizzie Ann MD PCP: Dr. Eddi Lynn MD Status: REG ER Study:Abdomen/Pelvis W IV Cont ONLY Date of E xam: 12/30/24 Exam# [id number] Ordering Dr: Lucinda Stauffer DO PROCEDURE: ABDOMEN/PELVIS W IV CONT ONLY 12/30/2024 REASON FOR EXAM: LACTIC ACIDOSIS, ELEVATED WHITE COUNT TECHNIQUE: Procedure Code: [id number] Modality: CT Procedure: ABDOMEN/PELVIS W IV CONT ONLY Coronal and Sagittal reconstruction series were provided. CONTRAST: 100 mL of Isovue 370 One or more dose reduction techniques were used (e.g., Automated exposure control, adjustment of the mA and/or kV according to patient size, use of iterative reconstruction technique. RADIATION DOSE SUMMARY: DLP: 1436 mGycm COMPARISON: None FINDINGS: Limited sections of the lung bases demonstrate no focal pulmonary mass or consolidations. Bibasilarsubsegmental atelectasis. The liver, spleen, pancreas, and both adrenal glands demonstrate no acute findings. Fatty atrophy of pancreas. The gallbladder is unremarkable. The stomach is unremarkable. The small bowel loops are not dilated. The appendix is not clearly identified, although there are no secondary signs ofappendicitis. No colonic obstruction. There is no free air or significant free fluid. Distended urinary bladder with mild hydroureter which may reflect reflux. The pelvic structures are intact. There is no solid pelvic mass. No significant lymphadenopathy. The aorta and IVC demonstrate no acute findings. Visualized osseous structures demonstrate no acute abnormality. CT/Abdomen/Pelvis W IV Cont ONLY IMPRESSION: Distended urinary bladder with mild hydroureter bilaterally which may reflect reflux. Otherwise no acute intra-abdominal process. Reading Location: [facility] CC: Dr. Eddi Lynn MD; Dr. Nestor Stauffer DO ~ [employer]der: Signed [facility]10-07-2025 Radiology Diagnostic study note [facility] Imaging Services [address] [place], [place] [address] Spine Cervical without Contras MR#: [id number] Acct: [id number] Name: NAYLA BENNETT Rep #: [id number] : 1955 M 69 From: Dariel Rudolph MD PCP: Dr. Eddi Lynn MD Status: REG ER Study:Spine Cervical without Contras Date of Exam: 12/30/24 Exam# [id number] Ordering Dr: Lucinda Stauffer DO PROCEDURE: SPINE CERVICAL WITHOUT CONTRAS 12/30/2024 REASON FOR EXAM: FALL X 2 TECHNIQUE: Procedure Code: CTSPC Modality: CT Procedure: SPINE CERVICAL WITHOUT CONTRAS Coronal and Sagittal reconstruction series were provided. One or more dose reduction techniques were used (e.g., Automated exposure control, adjustment of the mA and/or kV according to patient size, use of iterative reconstruction technique. COMPARISON: None. FINDINGS: No evidence of acute fracture or dislocation. Moderate degenerative changes of the visualized spine. Normal alignment. Vertebral body heights are maintained. The lung apices are clear. CT/Spine Cervical without Contras IMPRESSION: No acute osseous abnormalities. Spondylosis. Reading Location: [address] CC: Dr. Eddi Lynn MD; Dr. Nestor Stauffer DO ~ Electric Spot Welder: Signed [facility]10-07-2025 Radiology Diagnostic study note [facility] Imaging Services [address] [place], [place] [address] Brain/Head without Contrast MR#: [id number] Acct: [id number] Name: NAYLA BENNETT Rep #: [id number] : 1955 M 69 From: Dariel Rudolph MD PCP: Dr. Eddi Lynn MD Status: REG ER Study:Brain/Head without Contrast Date of Exa m: 12/30/24 Exam# [id number] Ordering Dr: Lucinda Stauffer DO PROCEDURE: BRAIN/HEAD WITHOUT CONTRAST 12/30/2024 REASON FOR EXAM: FALLX2 TECHNIQUE: Procedure Code: CTBR Modality: CT Procedure: BRAIN/HEAD WITHOUT CONTRAST Coronal and Sagittal reconstruction series were provided. One or more dose reduction techniques were used (e.g., Automated exposure control, adjustment of the mA and/or kV according to patient size, use of iterative reconstruction technique. COMPARISON: 12/19/2024. FINDINGS: Mild global parenchymal atrophy. Mild chronic microvascular ischemia. No evidence of acute hemorrhage or infarction. No extra-axial blood or fluid collections. Bilateral maxillary sinus retention cysts. Sphenoid, ethmoid, and frontal sinus mucosal thickening. The mastoid air cells are clear. The calvarial vault and skull base are intact. CT/Brain/Head without Contrast IMPRESSION: No acute intracranial abnormality. Reading Location: [address] CC: Dr. Eddi Lynn MD; Dr. Nestor Stauffer DO ~ Electric Spot Welder: Signed [facility]10-07-2025 Discharge summary Author Nestor Stauffer [facility] Note Date/Time December 30, 2024 8: 49pm [facility] Medical Records Department [address] [place] [address] Emergency Department Summary 12/30/24 MR#: [id number] Acct: [id number] Name: NAYLA BENNETT Rep #:[id number] : 1955 69 From: eNstor Stauffer DO PCP: Dr. Eddi Lynn MD Status:REG ER Location: ED HPI History of Present Illness Chief Complaint: Fall Narrative Narrative: Patient is a 69-year-old male with a past medical history of nonverbal at baseline, schizophrenia, seizures, hypertension, hypokalemia, type 2 diabetes who presents to the emergency department with a chief complaint of multiple falls today according to EMS. History of present illness is unobtainable from the patient therefore acute care caveat applies. According to them he is currently being treated for UTI however they are unsure what antibiotics he is on. [facility] Medical History Developmental non-verbal disorder Vitamin B12 deficiency Epilepsy, unspecified, not intractable, without status epilepticus Schizophrenia Seizure disorder Hyperlipidemia HTN (hypertension) Diabetes mellitus, type II Home Medications ?Medication ?Instructions ?Recorded ?Last Taken ?Type loratadine 10 mg tablet 10 mg PO DAILY allergies Unknown History omega 5-wfb-xks-fish oil 300 1 ea PO BID 07/16/16 Unkn own History mg-1,000 mg capsule risperidone 3 mg tablet 3 mg PO QHS 07/16/16 Unknown History atorvastatin 40 mg tablet 40 mg PO QHS 11/27/19 Unknow n History metformin 1,000 mg tablet 1,000 mg PO BID 11/27/19 Unk nown History fluticasone propionate 50 1 spray intranasal QHS 12/01 Unknown History mcg/actuation nasal spray,suspension polyethylene glycol 3350 17 gram 17 g PO BID 12/02/19 Unknown History oral powder packet tamsulosin 0.4 mg capsule 0.4 mg PO DAILY 12/02/19 Unk nown History levothyroxine 50 mcg tablet 50 mcg PO QDAY 11/28/23 Un known History cholecalciferol (vitamin D3) 1,250 1,250 mcg PO QMONTH #1 cap 05/28/24 Unknown Rx mcg (50,000 unit) capsule mecobalamin (vitamin B12) 1,000 1,000 mcg PO DAILY #30 tabs 05/28/24 Unknown Rx mcg chewable tablet (B12 Active) chlorhexidine gluconate 0.12 % 15 ml buccal BID Unknown History mouthwash olmesartan 40 mg tablet 40 mg PO QAM #30 tabs Unknown Rx phenobarbital 60 mg tablet 120 mg (2 x 60 mg) PO QHS # 56 tabs 11/26/24 Unknown Rx amlodipine 10 mg tablet (Norvasc) 10 mg PO DAILY #30 t abs 12/19/24 Unknown Rx beta carotene 30 mg capsule 30 mg PO DAILY 12/22/24 Un known History levetiracetam 1,000 mg tablet 1,000 mg PO BID 12/22/24 Unknown History hydrochlorothiazide 25 mg tablet 25 mg PO DAILY Unknown History Allergy/AdvReac Type Severity Reaction Status Date / Time No Known Allergies Allergy Verified 11/26/24 10:35 Surgical History No history of previous surgery Social History housing: other details: senior care Smoking Status: Never smoker Electronic Cigarette Use: not used second hand exposure: No alcohol intake: never substance use type: does not use seatbelt use: always ROS ROS ED ROS Narrative Review of systems unobtainable from the patient secondary to him being nonverbalat baseline therefore acute care caveat applies EXAM Physical Exam Narrative Exam Narrative: General: Patient lying in bed rest comfortably does not appear to be acute distress Head: Atraumatic, normocephalic Eyes: PERRL bilaterally, EOMI bilaterally, no conjunctival injection noted Neck: Soft, supple, trachea midline Cardiovascular: Regular rate and rhythm Respiratory: Clear to auscultation bilaterally Abdomen: Soft, nondistended Extremities: Patient moving all extremities on exam Neurological: Patient is at his baseline according to EMS. He was following commands when asked to raise his hands bilaterally he was able to do so. When he is asked to close his eyes he was able to do this as well. Skin: Warm, dry, intact no rashes or lesions noted Const Vital Signs: 12/30/24 15:48 12/30/24 15:52 12/30/24 16:09 Temperature 97.9 F Temperature Source Temporal Pulse Rate 87 Respiratory Rate 17 Respiratory Effort Normal Non-Labored Blood Pressure 158/85 H Blood Pressure Mean 109 Pulse Ox 95 Oxygen Delivery Method Room Air Room Air Room Air 12/30/24 17:08 12/30/24 18:25 12/30/24 19:00 Temperature 97.7 F L 98.1 F 98.1 F Temperature Source Temporal Temporal Oral Pulse Rate 85 86 92 Respiratory Rate 16 19 H 20 H Respiratory Effort Blood Pressure 169/71 H 175/96 H 197/111 H Blood Pressure Mean 103 122 139 Pulse Ox 95 98 97 Oxygen Delivery Method Room Air Room Air Room Air 12/30/24 19:43 12/30/24 20:01 12/30/24 20:16 Temperature 98.1 F 98.1 F Temperature Source Oral Oral Pulse Rate 96 95 97 Respiratory Rate 20 H 20 H 20 H Respiratory Effort Blood Pressure 205/95 H 198/91 H 198/91 H Blood Pressure Mean 131 126 126 Pulse Ox 97 96 97 Oxygen Delivery Method Room Air Room Air Room Air 12/30/24 20:31 12/30/24 20:43 Temperature 98.1 F Temperature Source Oral Pulse Rate 94 91 Respiratory Rate 20 H 18 Respiratory Effort Blood Pressure 196/85 H 196/85 H Blood Pressure Mean 122 122 Pulse Ox 96 96 Oxygen Delivery Method Room Air Room Air MDM MDM MDM Narrative Medical decision making narrative: Patient is a 69-year-old male who presents to the emergency department chief complaint of multiple falls earlier today. On the differential diagnosis includes but not limited to generalized weakness, UTI, intracranial hemorrhage, cervical spine fracture, electrolyte abnormality. Once the workup is obtained and reviewed he will be reevaluated. According to our records here there is no evidence of anticoagulants on his medication list. Patient's CBC was significant for leukocytosis 12,000, he was 13.6, plate count was noted to be 287. Patient sodium was low indicating hyponatremia at 119, potassium normal at 4.1, creatinine was noted be normal at 0.93. Patient has anion gap of 17 with carbon dioxide low at 20.9. Patient glucose was noted to be 105. Patient lactic acid elevated to 5.1, AST and ALT are 5727 respectively. Patient's urinalysis was reviewed which showed negative nitrites negative leukocyte esterase no bacteria noted. Patient CT head brain without contrast showed no acute intracranial abnormalities. Patient CT cervical spine reviewed showed no acute osseous abnormalities. Given the patient's white count lactic acidosis with being treated for UTI although his urine does not suggest this is a UTI we will add a CT abdomen pelvis IV contrast to ensure there is no intra-abdominal pathology currently andthen the patient will be admitted to the ICU. Patient has not had any seizures or any reports of seizures therefore at this point in time with his sodium I do not believe he warrants hypertonic saline. At 8:[address] resulted and showed hydroureter bilaterally but suggestive of reflux there is no identifiable source of infection still at this point time. Will discuss case with hospitalist for admission to the ICU. Discussed case with hospitalist Dr. Johnson who accept patient for admission. Critical care time 37 minutes. Lab Data Labs: Laboratory Results - last 24 hr 12/30/24 12/30/24 16:16 16:23 WBC 12.9 H RBC 4.42 L Hgb 13.6 Hct 36.5 L MCV 82.6 MCH 30.8 MCHC 37.3 H RDW Std Deviation 35.8 RDW Coeff of Celi 11.9 Plt Count 287 MPV 8.8 Immature Gran % (Auto) 0.500 Neut % (Auto) 64.2 Lymph % (Auto) 23.5 [place] % (Auto) 10.5 H Eos % (Auto) 0.9 Baso % (Auto) 0.4 Absolute Neuts (auto) 8.3 H Absolute Lymphs (auto) 3.04 Nucleated RBC % 0 PT 13.3 INR 1.0 APTT 23.2 L Sodium 119 L* Potassium 4.1 Chloride 81 L Carbon Dioxide 20.9 L Anion Gap 17 H BUN 12 Creatinine 0.93 Estim Creat Clear Calc 92.33 Est GFR (MDRD) Non-Af 88 BUN/Creatinine Ratio 12.8 Glucose 105 H Lactic Acid 5.1 H* Calcium 9.2 Total Bilirubin 0.36 AST 57 H ALT 27 Alkaline Phosphatase 80 Total Protein 6.9 Albumin 4.5 Globulin 2.4 Albumin/Globulin Ratio 1.8 Urine Color Yellow Urine Clarity Clear Urine pH 6.0 Ur Specific [place] 1.010 Urine Protein 30 H Urine Glucose (UA) 250 H Urine Ketones Negative Urine Occult Blood 25 H Urine Nitrite Negative Urine Bilirubin Negative Urine Urobilinogen Normal Ur Leukocyte Esterase Negative Urine RBC 0-5 SEEN Urine WBC 0 SEEN Ur Squamous Epith Cells 0 SEEN Urine Bacteria 0 SEEN Urine Mucus 0 SEEN Radiography Diagnostic Testing: Clinical Impression(s) from Imaging Studies Brain CT 12/30/24 15:56 IMPRESSION: No acute intracranial abnormality. Reading Location: [address] Cervical Spine CT 12/30/24 15:56 IMPRESSION: No acute osseous abnormalities. Spondylosis. Reading Location: [address] Abdomen/Pelvis CT 12/30/24 18:03 IMPRESSION: Distended urinary bladder with mild hydroureter bilaterally which may reflect reflux. Otherwise no acute intra-abdominal process. Reading Location: [facility] Discharge Plan Dx/Rx/DC Orders Clinical Impression: Fall, Generalized weakness, Hyponatremia, Type 2 diabetes mellitus, History of seizure Disposition Disposition: Acute Care Hospital [facility] What to do if you have Problems For any increased pain, shortness of breath, bleeding, nausea or vomiting, chestpain, or any unexpected problems, contact your Primary Care Provider. Call [facility] ([phone]) or report to the closest Emergency Room. Call 911 if necessary. 12/30/242048 <Electronically signed by Nestor Stauffer DO> Cosigner Signature (if applicable): CC: Dr. Eddi Lynn MD ~ Signed [facility] Work Phone: [phone] 654-543509-29-2025 Discharge summary [facility] Medical Records Department [address] [place] [address] Emergency Department Summary 12/22/24 MR#: [id number] Acct: [id number] Name: NAYLA BENNETT Rep #:[id number] : 1955 69 From: Chet Grover MD PCP: Dr. Eddi Lynn MD Status:REG ER Location: ED HPI History of Present Illness Chief Complaint: Hypertension Detail of Chief Complaint: Patient presents with elevated blood pressure. He repeats what is asked of Informant: other (Attendee from [facility]) Onset/Context/Timing Onset: Today (Apparently had elevated blood pressure readings at the facility.) Context: - (Unknown) Timing: - (Unknown) Quality: Blood pressure was elevated Current Severity: Mild Maximum Severity: Moderate Worsened by: Nothing Relieved by: Was not given anything Associated Symptoms Associated Symptoms: Unable to determine Narrative Narrative: Patient is a 69-year-old male. He does have a history of hypertension. He is presently on amlodipine 10 mg daily. He is on no other antihypertensive meds. He was seen 3 days ago. He had blood work atthat time that revealed no evidence of endorgan dysfunction. Since he is not able to communicate noif he has any symptoms. Prior similar symptoms: No Recent Illness/Hospitalization: Yes [facility] Medical History Developmental non-verbal disorder Vitamin B12 deficiency Epilepsy, unspecified, not intractable, without status epilepticus Schizophrenia Seizure disorder Hyperlipidemia HTN (hypertension) Diabetes mellitus, type II Home Medications ?Medication ?Instructions ?Recorded ?Last Taken ?Type loratadine 10 mg tablet 10 mg PO DAILY allergies Unknown History omega 1-lyb-jkj-fish oil 300 1 ea PO BID 07/16/16 Unkn own History mg-1,000 mg capsule risperidone 3 mg tablet 3 mg PO QHS 07/16/16 Unknown History atorvastatin 40 mg tablet 40 mg PO QHS 11/27/19 Unknow n History metformin 1,000 mg tablet 1,000 mg PO BID 11/27/19 Unk nown History fluticasone propionate 50 1 spray intranasal QHS 12/01 Unknown History mcg/actuation nasal spray,suspension polyethylene glycol 3350 17 gram 17 g PO BID 12/02/19 Unknown History oral powder packet tamsulosin 0.4 mg capsule 0.4 mg PO DAILY 12/02/19 Unk nown History levothyroxine 50 mcg tablet 50 mcg PO QDAY 11/28/23 Un known History cholecalciferol (vitamin D3) 1,250 1,250 mcg PO QMONTH #1 cap 05/28/24 Unknown Rx mcg (50,000 unit) capsule mecobalamin (vitamin B12) 1,000 1,000 mcg PO DAILY #30 tabs 05/28/24 Unknown Rx mcg chewable tablet (B12 Active) chlorhexidine gluconate 0.12 % 15 ml buccal BID Unknown History mouthwash olmesartan 40 mg tablet 40 mg PO QAM #30 tabs Unknown Rx phenobarbital 60 mg tablet 120 mg (2 x 60 mg) PO QHS # 56 tabs 11/26/24 Unknown Rx amlodipine 10 mg tablet (Norvasc) 10 mg PO DAILY #30 t abs 12/19/24 Unknown Rx beta carotene 30 mg capsule 30 mg PO DAILY 12/22/24 Un known History hydrochlorothiazide 12.5 mg tablet 12.5 mg PO .QAM #30 tabs 12/22/24 Unknown Rx levetiracetam 1,000 mg tablet 1,000 mg PO BID 12/22/24 Unknown History Allergy/AdvReac Type Severity Reaction Status Date / Time No Known Allergies Allergy Verified 11/26/24 10:35 Surgical History No history of previous surgery Social History housing: other details: senior care Smoking Status: Never smoker Electronic Cigarette Use: not used second hand exposure: No alcohol intake: never substance use type: does not use seatbelt use: always ROS ROS ED Review of Systems ROS Unobtainable: due to mental status EXAM Physical Exam Const Vital Signs: 12/22/24 18:52 12/22/24 18:58 Temperature 97.8 F Temperature Source Oral Pulse Rate 82 Respiratory Rate 20 H Respiratory Effort Normal Respiratory Pattern Normal Blood Pressure 182/101 H Blood Pressure Mean 128 Pulse Ox 98 Oxygen Delivery Method Room Air Positive well nourished and well developed General Appearance ED: well developed, NAD and pallor; Negative for cyanotic or diaphoretic HEENT Reports moist mucous membranes HEENT Narrative: Head is atraumatic no cephalic. Ears normal. Nares patent. Posterior pharynx no erythema or exudate. Uvula midline. No deviation tongue protrusion. Eyes PERRL and EOMs intact bilaterally Eyes Narrative: There is no nystagmus. General Eye ED: Negative for pale conjunctiva or scleral icterus Neck no lymphadenopathy, supple and no JVD Chest Wall inspection of chest normal and palpation of chest normal Resp normal respiratory effort and clear to auscultation bilaterally Cardio regular rate, regular rhythm, S1 normal heart sound, S2 normal heart sound and no murmurs GI normal to inspection, nondistended, normoactive bowel sounds, non-tender and no masses; Negative for non-distended or hepatosplenomegaly Palpation: soft Extremity normal to inspection General Extremety ED: Negative for edema or tenderness General Extremity: Negative for edema Neuro Neuro Narrative: Follows simple commands as far as raising his arms. Does finger-nose to finger. Brachialis, bicep, tricep, patella and ankle reflex are 1-2+ and symmetric. Hehas no clonus Babinski sign. He is at hisbaseline according to the attendant. Motor strength in my opinion is 5/5. He does have perception of light touch in all extremities. Psych Psych Narrative: Pleasant 69-year-old male appears in no distress Skin no rashes or lesions noted, no wounds and skin turgor normal General Skin Exam: pallor; Negative for elasticity normal or jaundice MDM MDM MDM Narrative Medical decision making narrative: Since patient had blood work 3 days ago and his renal function was normal. He had no proteinuria orhematuria and his blood pressure is slightly elevated not requiring emergent therapy will treat with hydrochlorothiazide and add hydrochlorothiazide to his present regimen. History & Record Review Additional record(s) reviewed:: Prior ED visit and Prior labs Discharge Plan Triage Chief Complaint: Hypertension ED Provider: Chet Grover Dx/Rx/DC Orders Clinical Impression: Accelerated essential hypertension, Epilepsy, unspecified, not intractable, without status epilepticus, Cognitive developmental delay, Autism Instructions: ED Hypertension, Established Prescriptions: New hydrochlorothiazide 12.5 mg tablet 12.5 mg PO .QAM Qty: 30 0RF No Action metformin 1,000 mg tablet 1,000 mg PO BID atorvastatin 40 mg tablet 40 mg PO QHS polyethylene glycol 3350 17 gram powder in packet 17 g PO BID fluticasone propionate 50 mcg/actuation spray,suspension 1 spray INTRANASAL QHS Rx Instructions: administer into each nostril tamsulosin 0.4 mg capsule 0.4 mg PO DAILY chlorhexidine gluconate 0.12 % mouthwash 15 ml BUCCAL BID levothyroxine 50 mcg tablet 50 mcg PO QDAY cholecalciferol (vitamin D3) 1,250 mcg (50,000 unit) capsule 1,250 mcg PO QMONTH Qty: 1 7RF B12 Active 1,000 mcg tablet,chewable 1,000 mcg PO DAILY Qty: 30 7RF olmesartan 40 mg tablet 40 mg PO QAM Qty: 30 6RF phenobarbital 60 mg tablet 120 mg PO QHS Qty: 56 5RF risperidone 3 MG tablet 3 mg PO QHS loratadine 10 MG tablet 10 mg PO DAILY omega 2-tun-yjd-fish oil 1 EACH capsule 1 ea PO BID beta carotene 30 mg capsule 30 mg PO DAILY levetiracetam 1,000 mg tablet 1,000 mg PO BID amlodipine [Norvasc] 10 mg tablet 10 mg PO DAILY Qty: 30 0RF Primary Care Provider: Eddi Lynn Referrals: Eddi Lynn MD [Primary Care Provider, Family Practice] - 1-2 Weeks Activity Restrictions/Additional Instructions: Need to have blood pressure checked in 1 to 2 weeks. Print Language: Bangladeshi Disposition Disposition: Home, Self Care What to do if you have Problems For any increased pain, shortness of breath, bleeding, nausea or vomiting, chestpain, or any unexpected problems, contact your Primary Care Provider. Call [facility] ([phone]) or report tothe closest Emergency Room. Call 911 if necessary. 12/22/241956 Cosigner Signature (if applicable): CC: Dr. Eddi Lynn MD ~ Signed [facility]09-29-2025 Discharge summary Author Chet Grover [facility] Note Date/Time December 22, 2024 7:57pm [facility] Medical Records Department [address] [place] [address] Emergency Department Summary 12/22/24 MR#: [id number] Acct: [id number] Name: NAYLA BENNETT Rep #:[id number] : 1955 69 From: Chet Grover MD PCP: Dr. Eddi Lynn MD Status:REG ER Location: ED HPI History of Present Illness Chief Complaint: Hypertension Detail of Chief Complaint: Patient presents with elevated blood pressure. He repeats what is asked of Informant: other (Attendee from [facility]) Onset/Context/Timing Onset: Today (Apparently had elevated blood pressure readings at the facility.) Context: - (Unknown) Timing: - (Unknown) Quality: Blood pressure was elevated Current Severity: Mild Maximum Severity: Moderate Worsened by: Nothing Relieved by: Was not given anything Associated Symptoms Associated Symptoms: Unable to determine Narrative Narrative: Patient is a 69-year-old male. He does have a history of hypertension. He is presently on amlodipine 10 mg daily. He is on no other antihypertensive meds. He was seen 3 days ago. He had blood work at that time that revealed no evidence of endorgan dysfunction. Since he is not able to communicate no if he has any symptoms. Prior similar symptoms: No Recent Illness/Hospitalization: Yes [facility] Medical History Developmental non-verbal disorder Vitamin B12 deficiency Epilepsy, unspecified, not intractable, without status epilepticus Schizophrenia Seizure disorder Hyperlipidemia HTN (hypertension) Diabetes mellitus, type II Home Medications ?Medication ?Instructions ?Recorded ?Last Taken ?Type loratadine 10 mg tablet 10 mg PO DAILY allergies Unknown History omega 5-rvt-ncd-fish oil 300 1 ea PO BID 07/16/16 Unkn own History mg-1,000 mg capsule risperidone 3 mg tablet 3 mg PO QHS 07/16/16 Unknown History atorvastatin 40 mg tablet 40 mg PO QHS 11/27/19 Unknow n History metformin 1,000 mg tablet 1,000 mg PO BID 11/27/19 Unk nown History fluticasone propionate 50 1 spray intranasal QHS 12/01 Unknown History mcg/actuation nasal spray,suspension polyethylene glycol 3350 17 gram 17 g PO BID 12/02/19 Unknown History oral powder packet tamsulosin 0.4 mg capsule 0.4 mg PO DAILY 12/02/19 Unk nown History levothyroxine 50 mcg tablet 50 mcg PO QDAY 11/28/23 Un known History cholecalciferol (vitamin D3) 1,250 1,250 mcg PO QMONTH #1 cap 05/28/24 Unknown Rx mcg (50,000 unit) capsule mecobalamin (vitamin B12) 1,000 1,000 mcg PO DAILY #30 tabs 05/28/24 Unknown Rx mcg chewable tablet (B12 Active) chlorhexidine gluconate 0.12 % 15 ml buccal BID Unknown History mouthwash olmesartan 40 mg tablet 40 mg PO QAM #30 tabs Unknown Rx phenobarbital 60 mg tablet 120 mg (2 x 60 mg) PO QHS # 56 tabs 11/26/24 Unknown Rx amlodipine 10 mg tablet (Norvasc) 10 mg PO DAILY #30 t abs 12/19/24 Unknown Rx beta carotene 30 mg capsule 30 mg PO DAILY 12/22/24 Un known History hydrochlorothiazide 12.5 mg tablet 12.5 mg PO .QAM #30 tabs 12/22/24 Unknown Rx levetiracetam 1,000 mg tablet 1,000 mg PO BID 12/22/24 Unknown History Allergy/AdvReac Type Severity Reaction Status Date / Time No Known Allergies Allergy Verified 11/26/24 10:35 Surgical History No history of previous surgery Social History housing: other details: senior care Smoking Status: Never smoker Electronic Cigarette Use: not used second hand exposure: No alcohol intake: never substance use type: does not use seatbelt use: always ROS ROS ED Review of Systems ROS Unobtainable: due to mental status EXAM Physical Exam Const Vital Signs: 12/22/24 18:52 12/22/24 18:58 Temperature 97.8 F Temperature Source Oral Pulse Rate 82 Respiratory Rate 20 H Respiratory Effort Normal Respiratory Pattern Normal Blood Pressure 182/101 H Blood Pressure Mean 128 Pulse Ox 98 Oxygen Delivery Method Room Air Positive well nourished and well developed General Appearance ED: well developed, NAD and pallor; Negative for cyanotic or diaphoretic HEENT Reports moist mucous membranes HEENT Narrative: Head is atraumatic no cephalic. Ears normal. Nares patent. Posterior pharynx no erythema or exudate. Uvula midline. No deviation tongue protrusion. Eyes PERRL and EOMs intact bilaterally Eyes Narrative: There is no nystagmus. General Eye ED: Negative for pale conjunctiva or scleral icterus Neck no lymphadenopathy, supple and no JVD Chest Wall inspection of chest normal and palpation of chest normal Resp normal respiratory effort and clear to auscultation bilaterally Cardio regular rate, regular rhythm, S1 normal heart sound, S2 normal heart sound and no murmurs GI normal to inspection, nondistended, normoactive bowel sounds, non-tender and no masses; Negative for non-distended or hepatosplenomegaly Palpation: soft Extremity normal to inspection General Extremety ED: Negative for edema or tenderness General Extremity: Negative for edema Neuro Neuro Narrative: Follows simple commands as far as raising his arms. Does finger-nose to finger. Brachialis, bicep, tricep, patella and ankle reflex are 1-2+ and symmetric. Hehas no clonus Babinski sign. He is at his baseline according to the attendant. Motor strength in my opinion is 5/5. He does have perception of light touch in all extremities. Psych Psych Narrative: Pleasant 69-year-old male appears in no distress Skin no rashes or lesions noted, no wounds and skin turgor normal General Skin Exam: pallor; Negative for elasticity normal or jaundice MDM MDM MDM Narrative Medical decision making narrative: Since patient had blood work 3 days ago and his renal function was normal. He had no proteinuria or hematuria and his blood pressure is slightly elevated not requiring emergent therapy will treat with hydrochlorothiazide and add hydrochlorothiazide to his present regimen. History & Record Review Additional record(s) reviewed:: Prior ED visit and Prior labs Discharge Plan Triage Chief Complaint: Hypertension ED Provider: Chet Grover Dx/Rx/DC Orders Clinical Impression: Accelerated essential hypertension, Epilepsy, unspecified, not intractable, without status epilepticus, Cognitive developmental delay, Autism Instructions: ED Hypertension, Established Prescriptions: New hydrochlorothiazide 12.5 mg tablet 12.5 mg PO .QAM Qty: 30 0RF No Action metformin 1,000 mg tablet 1,000 mg PO BID atorvastatin 40 mg tablet 40 mg PO QHS polyethylene glycol 3350 17 gram powder in packet 17 g PO BID fluticasone propionate 50 mcg/actuation spray,suspension 1 spray INTRANASAL QHS Rx Instructions: administer into each nostril tamsulosin 0.4 mg capsule 0.4 mg PO DAILY chlorhexidine gluconate 0.12 % mouthwash 15 ml BUCCAL BID levothyroxine 50 mcg tablet 50 mcg PO QDAY cholecalciferol (vitamin D3) 1,250 mcg (50,000 unit) capsule 1,250 mcg PO QMONTH Qty: 1 7RF B12 Active 1,000 mcg tablet,chewable 1,000 mcg PO DAILY Qty: 30 7RF olmesartan 40 mg tablet 40 mg PO QAM Qty: 30 6RF phenobarbital 60 mg tablet 120 mg PO QHS Qty: 56 5RF risperidone 3 MG tablet 3 mg PO QHS loratadine 10 MG tablet 10 mg PO DAILY omega 1-cch-efn-fish oil 1 EACH capsule 1 ea PO BID beta carotene 30 mg capsule 30 mg PO DAILY levetiracetam 1,000 mg tablet 1,000 mg PO BID amlodipine [Norvasc] 10 mg tablet 10 mg PO DAILY Qty: 30 0RF Primary Care Provider: Eddi Lynn Referrals: Eddi Lynn MD [Primary Care Provider, Family Practice] - 1-2 Weeks Activity Restrictions/Additional Instructions: Need to have blood pressure checked in 1 to 2 weeks. Print Language: Bangladeshi Disposition Disposition: Home, Self Care What to do if you have Problems For any increased pain, shortness of breath, bleeding, nausea or vomiting, chestpain, or any unexpected problems, contact your Primary Care Provider. Call [facility] ([phone]) or report to the closest Emergency Room. Call 911 if necessary. 12/22/241956 <Electronically signed by Chet Grover MD> Cosigner Signature (if applicable): CC: Dr. Eddi Lynn MD ~ Signed [facility] Work Phone: [phone] 314-860609-26-2025 Discharge summary [facility] Medical Records Department [address] [place] [address] Emergency Department Summary 12/19/24 MR#: [id number] Acct: [id number] Name: NAYLA BENNETT Rep #:[id number] : 1955 69 From: Lory Santana PCP: Dr. Eddi Lynn MD Status:DEP ER Location: ED HPI History of Present Illness Chief Complaint: Hypertension Informant: mental health staff Narrative Narrative: Patient is a 69-year-old male with history of newly diagnosed hypertension, diabetes mellitus, schizophrenia and developmental delay (minimally verbal at baseline) presenting with elevated blood pressure. No acute complaints. Was not having elevated blood pressure last week (blood pressures 210/616871/110.) workshop recommend he see his primary care doctor. He was started on Norvasc 5 mg. They have been checking his blood pressure daily until he follows up with his primary care doctor. His blood pressure was noted to be elevated today (180s) however he has been acting normally. No complaints. No report of any fevers, headaches, vomiting or change in urine output. Was sent in for recommendation primary care doctor for further evaluation. [facility] Medical History (Updated 12/19/24 @ 16:[address] Lory Wolff DO) Developmental non-verbal disorder Vitamin B12 deficiency Epilepsy, unspecified, not intractable, without status epilepticus Schizophrenia Seizure disorder Hyperlipidemia HTN (hypertension) Diabetes mellitus, type II Home Medications ?Medication ?Instructions ?Recorded ?Last Taken ?Type loratadine 10 mg tablet 10 mg PO DAILY PRN allergies 07/16/16 Unknown History omega 5-soh-kuh-fish oil 300 1 ea PO BID 07/16/16 Unkn own History mg-1,000 mg capsule risperidone 3 mg tablet 3 mg PO QHS 07/16/16 Unknown History atorvastatin 40 mg tablet 40 mg PO QHS 11/27/19 Unknow n History metformin 1,000 mg tablet 1,000 mg PO BID 11/27/19 Unk nown History fluticasone propionate 50 1 spray intranasal DAILY 11/12 Unknown History mcg/actuation nasal spray,suspension polyethylene glycol 3350 17 gram 17 g PO BID 12/02/19 Unknown History oral powder packet tamsulosin 0.4 mg capsule 0.4 mg PO DAILY 12/02/19 Unk nown History levothyroxine 50 mcg tablet 50 mcg PO QDAY 11/28/23 Un known History cholecalciferol (vitamin D3) 1,250 1,250 mcg PO QMONTH #1 cap 05/28/24 Unknown Rx mcg (50,000 unit) capsule mecobalamin (vitamin B12) 1,000 1,000 mcg PO DAILY #30 tabs 05/28/24 Unknown Rx mcg chewable tablet (B12 Active) chlorhexidine gluconate 0.12 % 15 ml buccal BID Unknown History mouthwash levetiracetam 750 mg tablet 1,500 mg (2 x 750 mg) PO B ID #120 11/26/24 Unknown Rx tabs olmesartan 40 mg tablet 40 mg PO QAM #30 tabs Unknown Rx phenobarbital 60 mg tablet 120 mg (2 x 60 mg) PO QHS # 56 tabs 11/26/24 Unknown Rx amlodipine 10 mg tablet (Norvasc) 10 mg PO DAILY #30 t abs 12/19/24 Unknown Rx Allergy/AdvReac Type Severity Reaction Status Date / Time No Known Allergies Allergy Verified 11/26/24 10:35 Surgical History No history of previous surgery Social History housing: other details: senior care Smoking Status: Never smoker Electronic Cigarette Use: not used second hand exposure: No alcohol intake: never substance use type: does not use seatbelt use: always ROS ROS ED ROS Narrative Review systems limited secondary to patient's mental status at baseline, given by healthcare aide Constitutional Constitutional ED: Denies chills or fever(s) Respiratory/Chest Respiratory/Chest: Denies cough or dyspnea Gastrointestinal Gastrointestinal: Denies vomiting Neurologic Neurologic: Denies headache(s) or weakness Hematologic/Lymphatic Hematologic/Lymphatic: Denies easy bleeding or easy bruising EXAM Physical Exam Const Vital Signs: 12/19/24 15:44 12/19/24 16:28 Temperature 97.5 F L Pulse Rate 74 77 Respiratory Rate 18 14 Blood Pressure 179/81 H 167/84 H Blood Pressure Mean 113 111 Pulse Ox 97 96 Oxygen Delivery Method Room Air Positive well nourished and well developed General Appearance ED: well developed and NAD HEENT Reports moist mucous membranes Eyes PERRL Neck supple and no JVD Chest Wall inspection of chest normal Resp normal respiratory effort and clear to auscultation bilaterally Cardio regular rate and regular rhythm GI normal to inspection, nondistended, normoactive bowel sounds and non-tender Auscultation: normoactive bowel sounds Palpation: soft; Negative for tender or guarding Extremity General Extremety ED: Negative for edema General Extremity: Negative for edema Neuro CN's II-XII intact bilaterally and no sensory deficits noted Neuro Narrative: Normal gait Sensorium / Orientation: alert Motor Exam: strength 5/5 throughout; Negative for general weakness Psych mental status grossly normal Skin no rashes or lesions noted MDM MDM MDM Narrative Medical decision making narrative: Patient evaluated for elevated blood pressure. Started on Norvasc 5 mg's last week and [facility] has been checking his blood pressure regularly however it was elevated today. He did have his Norvasc5 mg. They called the PCP office who recommend he come to the ER. Differential includes poorly controlled hypertension, accelerated hypertension, PARKER and intracranial hemorrhage. Patient is asymptomatic at this time and per program aide group work he is at his baseline and acting normally. Normal appetite exodus ate lunch prior to coming in. No focal neurologic deficits. As he is apoor historian I will obtain CT of the brain to ensure there is no signs of any acute intracranial hemorrhage causing his elevated blood pressure. I will also check a BMP and urinalysis looking for signs of endorgan damage associated with elevated blood pressure (specifically PARKER and proteinuria). Workup is normal. Patient is given additional dose of Norvasc with improvement of blood pressure. Suspect this is asymptomatic hypertension at this point. Isgiven a prescription for 10 mg Norvasc andencouraged to continue taking blood pressure log and follow-up with family medicine as previously'splanned. senior care is agreeable to plan of care. Patient discharged home in stable condition. Blood pressure downtrending in the emergency room. Final blood pressure 167/84in the emergency room. This is appropriate where he should be so he does not have a sudden extreme drop in blood pressure eliciting any hypotensive symptoms Lab Data Attestation: I reviewed the patient's lab results. Labs: Laboratory Results - last 24 hr 12/19/24 12/19/24 14:12 15:42 Sodium 133 Potassium 4.2 Chloride 97 L Carbon Dioxide 22.4 Anion Gap 14 BUN 12 Creatinine 0.81 Estim Creat Clear Calc 98.76 Est GFR (MDRD) Non-Af 95 BUN/Creatinine Ratio 15.0 Glucose 197 H Calcium 8.8 Urine Color Straw Urine Clarity Clear Urine pH 6.5 Ur Specific Harrison 1.010 Urine Protein Negative Urine Glucose (UA) 250 H Urine Ketones Negative Urine Occult Blood Negative Urine Nitrite Negative Urine Bilirubin Negative Urine Urobilinogen Normal Ur Leukocyte Esterase Negative Urine RBC 0-5 SEEN Urine WBC 0-5 SEEN Ur Squamous Epith Cells 0-5 SEEN Urine Bacteria 0 SEEN Urine Mucus 0 SEEN Radiography Diagnostic Testing: Clinical Impression(s) from Imaging Studies Brain CT 12/19/24 14:20 IMPRESSION: No acute intracranial abnormality. Reading Location: [facility] Discharge Plan Triage Chief Complaint: Hypertension ED Provider: Lory Wolff Dx/Rx/DC Orders Clinical Impression: HTN (hypertension) Instructions: ED Hypertension, Established Prescriptions: New amlodipine [Norvasc] 10 mg tablet 10 mg PO DAILY Qty: 30 0RF No Action metformin 1,000 mg tablet 1,000 mg PO BID atorvastatin 40 mg tablet 40 mg PO QHS polyethylene glycol 3350 17 gram powder in packet 17 g PO BID fluticasone propionate 50 mcg/actuation spray,suspension 1 spray INTRANASAL DAILY Rx Instructions: administer into each nostril tamsulosin 0.4 mg capsule 0.4 mg PO DAILY chlorhexidine gluconate 0.12 % mouthwash 15 ml BUCCAL BID levothyroxine 50 mcg tablet 50 mcg PO QDAY cholecalciferol (vitamin D3) 1,250 mcg (50,000 unit) capsule 1,250 mcg PO QMONTH Qty: 1 7RF B12 Active 1,000 mcg tablet,chewable 1,000 mcg PO DAILY Qty: 30 7RF olmesartan 40 mg tablet 40 mg PO QAM Qty: 30 6RF phenobarbital 60 mg tablet 120 mg PO QHS Qty: 56 5RF levetiracetam 750 mg tablet 1,500 mg PO BID Qty: 120 7RF risperidone 3 MG tablet 3 mg PO QHS loratadine 10 MG tablet 10 mg PO DAILY PRN omega 3-wrl-nht-fish oil 1 EACH capsule 1 ea PO BID Primary Care Provider: Eddi Lynn Referrals: Eddi Lynn MD [Primary Care Provider, Family Practice] Activity Restrictions/Additional Instructions: No findings consistent with hypertensive emergency. Will increase your Norvasc to 10 mg daily from 5 mg. He was given extra dose today. Please continue to take blood pressure log and follow-up with primary care doctor next week Print Language: Bangladeshi Disposition Disposition: Home, Self Care Discharge Date/Time: 12/19/24 16:42 What to do if you have Problems For any increased pain, shortness of breath, bleeding, nausea or vomiting, chestpain, or any unexpected problems, contact your Primary Care Provider. Call [facility] ([phone]) or report tothe closest Emergency Room. Call 911 if necessary. 12/20/24 1507 Cosigner Signature (if applicable): CC: Dr. Eddi Lynn MD ~ Signed [facility]09-26-2025 Radiology Diagnostic study note [facility] Imaging Services [address] [place] [id number] Brain/Head without Contrast MR#: [id number] Acct: [id number] Name: NAYLA BENNETT Rep #: [id number] : 1955 M 69 From: Edwin Bettencourt MD PCP: Dr. Eddi Lynn MD Status: REG ER Study:Brain/Head without Contrast Date of Exa m: 12/19/24 Exam# [id number] Ordering Dr: Joe Wolff DO PROCEDURE: BRAIN/HEAD WITHOUT CONTRAST 12/19/2024 REASON FOR EXAM: HYPERTENSION TECHNIQUE: Procedure Code: CTBR Modality: CT Procedure: BRAIN/HEAD WITHOUT CONTRAST Coronal and Sagittal reconstruction series were provided. One or more dose reduction techniques were used (e.g., Automated exposure control, adjustment of the mA and/or kV according to patient size, use of iterative reconstruction technique. RADIATION DOSE SUMMARY: CTDlvol: 47.06 mGy DLP: 943.26 mGycm COMPARISON: MRI BRAIN w/o + w/ Contrast, 12/24/2019. FINDINGS: BRAIN: No acute intraparenchymal hemorrhage. No mass lesion. No CT evidence for acute territorial infarct.No midline shift or extra-axial collection. Mild periventricular white matter low attenuation, likely microvascular ischemic changes. VENTRICLES: No hydrocephalus. ORBITS: Intraocular lens implants bilaterally. The orbits are otherwise unremarkable. SINUSES AND MASTOIDS: Bilateral maxillary sinus retention cysts/polyps again seen. Mild right sphenoid and bilateral ethmoid sinus mucosal thickening. The mastoid air cells are clear. SOFT TISSUES: No acute abnormality seen. BONES: No acute osseous abnormality seen. OTHER: Carotid siphon calcification bilaterally. Soft tissue density within the external auditory canals bilaterally, likely cerumen. CT/Brain/Head without Contrast IMPRESSION: No acute intracranial abnormality. Reading Location: [facility] CC: Dr. Eddi Lynn MD; Dr. Lory Wolff DO ~ Electric Spot Welder: Signed [facility]09-26-2025 Discharge summary Author Lory Wolff [facility] Note Date/Time December 19, 2024 4:42pm [facility] Medical Records Department [address] [place] [address] Emergency Department Summary 12/19/24 MR#: [id number] Acct: [id number] Name: NAYLA BENNETT Rep #:[id number] : 1955 69 From: Lory Santana PCP: Dr. Eddi Lynn MD Status:DEP ER Location: ED HPI History of Present Illness Chief Complaint: Hypertension Informant: mental health staff Narrative Narrative: Patient is a 69-year-old male with history of newly diagnosed hypertension, diabetes mellitus, schizophrenia and developmental delay (minimally verbal at baseline) presenting with elevated blood pressure. No acute complaints. Was not having elevated blood pressure last week (blood pressures 210/102 100/110.) workshop recommend he see his primary care doctor. He was started on Norvasc 5 mg. They have been checking his blood pressure daily until he follows up with his primary care doctor. His blood pressure was noted to be elevated today (180s) however he has been acting normally. No complaints. No report of any fevers, headaches, vomiting or change in urine output. Was sent in for recommendation primary care doctor for further evaluation. [facility] Medical History (Updated 12/19/24 @ 16:[address] Lory Wolff, DO) Developmental non-verbal disorder Vitamin B12 deficiency Epilepsy, unspecified, not intractable, without status epilepticus Schizophrenia Seizure disorder Hyperlipidemia HTN (hypertension) Diabetes mellitus, type II Home Medications ?Medication ?Instructions ?Recorded ?Last Taken ?Type loratadine 10 mg tablet 10 mg PO DAILY PRN allergies 07/16/16 Unknown History omega 1-lix-ggi-fish oil 300 1 ea PO BID 07/16/16 Unkn own History mg-1,000 mg capsule risperidone 3 mg tablet 3 mg PO QHS 07/16/16 Unknown History atorvastatin 40 mg tablet 40 mg PO QHS 11/27/19 Unknow n History metformin 1,000 mg tablet 1,000 mg PO BID 11/27/19 Unk nown History fluticasone propionate 50 1 spray intranasal DAILY 11/12 Unknown History mcg/actuation nasal spray,suspension polyethylene glycol 3350 17 gram 17 g PO BID 12/02/19 Unknown History oral powder packet tamsulosin 0.4 mg capsule 0.4 mg PO DAILY 12/02/19 Unk nown History levothyroxine 50 mcg tablet 50 mcg PO QDAY 11/28/23 Un known History cholecalciferol (vitamin D3) 1,250 1,250 mcg PO QMONTH #1 cap 05/28/24 Unknown Rx mcg (50,000 unit) capsule mecobalamin (vitamin B12) 1,000 1,000 mcg PO DAILY #30 tabs 05/28/24 Unknown Rx mcg chewable tablet (B12 Active) chlorhexidine gluconate 0.12 % 15 ml buccal BID Unknown History mouthwash levetiracetam 750 mg tablet 1,500 mg (2 x 750 mg) PO B ID #120 11/26/24 Unknown Rx tabs olmesartan 40 mg tablet 40 mg PO QAM #30 tabs Unknown Rx phenobarbital 60 mg tablet 120 mg (2 x 60 mg) PO QHS # 56 tabs 11/26/24 Unknown Rx amlodipine 10 mg tablet (Norvasc) 10 mg PO DAILY #30 t abs 12/19/24 Unknown Rx Allergy/AdvReac Type Severity Reaction Status Date / Time No Known Allergies Allergy Verified 11/26/24 10:35 Surgical History No history of previous surgery Social History housing: other details: senior care Smoking Status: Never smoker Electronic Cigarette Use: not used second hand exposure: No alcohol intake: never substance use type: does not use seatbelt use: always ROS ROS ED ROS Narrative Review systems limited secondary to patient's mental status at baseline, given by healthcare aide Constitutional Constitutional ED: Denies chills or fever(s) Respiratory/Chest Respiratory/Chest: Denies cough or dyspnea Gastrointestinal Gastrointestinal: Denies vomiting Neurologic Neurologic: Denies headache(s) or weakness Hematologic/Lymphatic Hematologic/Lymphatic: Denies easy bleeding or easy bruising EXAM Physical Exam Const Vital Signs: 12/19/24 15:44 12/19/24 16:28 Temperature 97.5 F L Pulse Rate 74 77 Respiratory Rate 18 14 Blood Pressure 179/81 H 167/84 H Blood Pressure Mean 113 111 Pulse Ox 97 96 Oxygen Delivery Method Room Air Positive well nourished and well developed General Appearance ED: well developed and NAD HEENT Reports moist mucous membranes Eyes PERRL Neck supple and no JVD Chest Wall inspection of chest normal Resp normal respiratory effort and clear to auscultation bilaterally Cardio regular rate and regular rhythm GI normal to inspection, nondistended, normoactive bowel sounds and non-tender Auscultation: normoactive bowel sounds Palpation: soft; Negative for tender or guarding Extremity General Extremety ED: Negative for edema General Extremity: Negative for edema Neuro CN's II-XII intact bilaterally and no sensory deficits noted Neuro Narrative: Normal gait Sensorium / Orientation: alert Motor Exam: strength 5/5 throughout; Negative for general weakness Psych mental status grossly normal Skin no rashes or lesions noted MDM MDM MDM Narrative Medical decision making narrative: Patient evaluated for elevated blood pressure. Started on Norvasc 5 mg's last week and [facility] has been checking his blood pressure regularly however it was elevated today. He did have his Norvasc 5 mg. They called the PCP office who recommend he come to the ER. Differential includes poorly controlled hypertension, accelerated hypertension, PARKER and intracranial hemorrhage. Patient is asymptomatic at this time and per program aide group work he is at his baseline and acting normally. Normal appetite exodus ate lunch prior to coming in. No focal neurologic deficits. As he is a poor historian I will obtain CT of the brain to ensure there is no signs of any acute intracranial hemorrhage causing his elevated blood pressure. I will also check a BMP and urinalysis looking for signs of endorgan damage associated with elevated blood pressure (specifically PARKER and proteinuria). Workup is normal. Patient is given additional dose of Norvasc with improvement of blood pressure. Suspect this is asymptomatic hypertension at this point. Isgiven a prescription for 10 mg Norvasc and encouraged to continue taking blood pressure log and follow-up with family medicine as previously's planned. senior care is agreeable to plan of care. Patient discharged home in stable condition. Blood pressure downtrending in the emergency room. Final blood pressure 167/84in the emergency room. This is appropriate where he should be so he does not have a sudden extreme drop in blood pressure eliciting any hypotensive symptoms Lab Data Attestation: I reviewed the patient's lab results. Labs: Laboratory Results - last 24 hr 12/19/24 12/19/24 14:12 15:42 Sodium 133 Potassium 4.2 Chloride 97 L Carbon Dioxide 22.4 Anion Gap 14 BUN 12 Creatinine 0.81 Estim Creat Clear Calc 98.76 Est GFR (MDRD) Non-Af 95 BUN/Creatinine Ratio 15.0 Glucose 197 H Calcium 8.8 Urine Color Straw Urine Clarity Clear Urine pH 6.5 Ur Specific Harrison 1.010 Urine Protein Negative Urine Glucose (UA) 250 H Urine Ketones Negative Urine Occult Blood Negative Urine Nitrite Negative Urine Bilirubin Negative Urine Urobilinogen Normal Ur Leukocyte Esterase Negative Urine RBC 0-5 SEEN Urine WBC 0-5 SEEN Ur Squamous Epith Cells 0-5 SEEN Urine Bacteria 0 SEEN Urine Mucus 0 SEEN Radiography Diagnostic Testing: Clinical Impression(s) from Imaging Studies Brain CT 12/19/24 14:20 IMPRESSION: No acute intracranial abnormality. Reading Location: [facility] Discharge Plan Triage Chief Complaint: Hypertension ED Provider: Lory Wolff Dx/Rx/DC Orders Clinical Impression: HTN (hypertension) Instructions: ED Hypertension, Established Prescriptions: New amlodipine [Norvasc] 10 mg tablet 10 mg PO DAILY Qty: 30 0RF No Action metformin 1,000 mg tablet 1,000 mg PO BID atorvastatin 40 mg tablet 40 mg PO QHS polyethylene glycol 3350 17 gram powder in packet 17 g PO BID fluticasone propionate 50 mcg/actuation spray,suspension 1 spray INTRANASAL DAILY Rx Instructions: administer into each nostril tamsulosin 0.4 mg capsule 0.4 mg PO DAILY chlorhexidine gluconate 0.12 % mouthwash 15 ml BUCCAL BID levothyroxine 50 mcg tablet 50 mcg PO QDAY cholecalciferol (vitamin D3) 1,250 mcg (50,000 unit) capsule 1,250 mcg PO QMONTH Qty: 1 7RF B12 Active 1,000 mcg tablet,chewable 1,000 mcg PO DAILY Qty: 30 7RF olmesartan 40 mg tablet 40 mg PO QAM Qty: 30 6RF phenobarbital 60 mg tablet 120 mg PO QHS Qty: 56 5RF levetiracetam 750 mg tablet 1,500 mg PO BID Qty: 120 7RF risperidone 3 MG tablet 3 mg PO QHS loratadine 10 MG tablet 10 mg PO DAILY PRN omega 9-nwj-xkp-fish oil 1 EACH capsule 1 ea PO BID Primary Care Provider: Eddi Lynn Referrals: Eddi Lynn MD [Primary Care Provider, Family Practice] Activity Restrictions/Additional Instructions: No findings consistent with hypertensive emergency. Will increase your Norvasc to 10 mg daily from 5 mg. He was given extra dose today. Please continue to take blood pressure log and follow-up with primary care doctor next week Print Language: Bangladeshi Disposition Disposition: Home, Self Care Discharge Date/Time: 12/19/24 16:42 What to do if you have Problems For any increased pain, shortness of breath, bleeding, nausea or vomiting, chestpain, or any unexpected problems, contact your Primary Care Provider. Call [facility] ([phone]) or report to the closest Emergency Room. Call 911 if necessary. 12/20/24 1507 <Electronically signed by Lory Wolff DO> Cosigner Signature (if applicable): CC: Dr. Eddi Lynn MD ~ Signed [facility] Work Phone: [phone] 649-195409-03-2025 Evaluation note* Diagnosis Onset Date Resolution Status Admit Date Epilepsy, unspecified, not intractable, without status epilepticus chronic November 26 025 10:31am HTN (hypertension) chronic Sept2024 10:31am Vitamin B12 deficiency resolved Se ptember 2024 10:31am Vitamin D insufficiency resolved S eptember 2024 10:31am [facility] Work Phone: 1(637) 308-104109-03-2025 Evaluation note* Diagnosis Onset Date Resolution Status Admit Date Epilepsy, unspecified, not intractable, without status epilepticus chronic November 26 025 10:31am HTN (hypertension) chronic Sept2024 10:31am Vitamin B12 deficiency resolved Se ptember 2024 10:31am Vitamin D insufficiency resolved S eptember 2024 10:31am Acute hyponatremia acute Octobe r 2024 9:21pm Adverse drug reaction acute Dec fabiola 2024 9:21pm Adverse effect of metformin acute December 30, 2024 9:21pm BPH with urinary obstruction acute December 30, 2024 9:21pm Fall acute December 30 9:21pm Frequent falls acute December 9:21pm Generalized weakness acute Octo 2024 9:21pm History of seizure acute Decobe r 2024 9:21pm Hyponatremia acute December 30, 2024 9:21pm Lactic acidosis acute December 302024 9:21pm Leukocytosis acute December 30, 2024 9:21pm Obesity (BMI 30.0-34.9) acute O ctober 2024 9:21pm Schizophrenia acute December 9:21pm Seizure disorder acute December 30, 2024 9:21pm Type 2 diabetes mellitus acute December 30, 2024 9:21pm Uncontrolled hypertension acute December 30, 2024 9:21pm [facility] Work Phone: 1(762) 688-606809-03-2025 Evaluation note* Diagnosis Onset Date Resolution Status Admit Date Epilepsy, unspecified, not intractable, without status epilepticus chronic November 26 025 10:31am HTN (hypertension) chronic Novem 2024 10:31am Vitamin B12 deficiency resolved Se ptember 2024 10:31am Vitamin D insufficiency resolved S eptember 2024 10:31am Acute hyponatremia acute Octobe r 2024 9:21pm Uncontrolled hypertension acute December 30, 2024 9:21pm Adverse drug reaction resolved Oct fabiola 2024 9:21pm Adverse effect of metformin resolved December 30, 2024 9:21pm Frequent falls resolved December 9:21pm Generalized weakness deleted 2024 9:21pm Lactic acidosis resolved December 302024 9:21pm Leukocytosis resolved December 30, 2024 9:21pm BPH with urinary obstruction inactiv e December 30, 2024 9:21pm History of seizure inactive Octobe r 2024 9:21pm Obesity (BMI 30.0-34.9) inactive O ctober 2024 9:21pm Schizophrenia inactive December 9:21pm Seizure disorder inactive December 30, 2024 9:21pm Type 2 diabetes mellitus inactive December 30, 2024 9:21pm Fall deleted December 30 9:21pm Hyponatremia deleted December 30, 2024 9:21pm Acute dyspnea resolved December 12:01am Hypoxia resolved January 09, 2025 12:01am CHF (congestive heart failure) inactive January 09 12:01am History of diabetes mellitus inactiv e January 09, 2025 12:01am History of hypertension inactive O ctober 2024 12:01am [facility] Work Phone: 1(548) 239-641903-06-2025 Radiology Diagnostic study note [facility] Imaging Services [address] [place] [address] HIP, UNI W/ Pelvis 2-3 Views MR#: [id number] Acct: [id number] Name: NAYLA BENNETT Rep #: [id number] : 1955 M 69 From: Iván Thompson MD PCP: Dr. Eddi Lynn MD Status: REG CL I Study:HIP, UNI W/ Pelvis 2-3 Views Date of Ex am: 05/29/24 Exam# [id number] Ordering Dr: Beckie Lynn MD PROCEDURE: HIP, UNI W/ PELVIS 2-3 VIEWS REASON FOR EXAM: Pain following recent fall. TECHNIQUE: Three views were obtained. COMPARISON: None. FINDINGS: No fracture. No suspicious bone lesion. Normal alignment. Calcified phleboliths are seen in the pelvis. 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 RAD/HIP, UNI W/ Pelvis 2-3 Views IMPRESSION: Degenerative changes. Reading Location: [facility] CC: Dr. Eddi Lynn MD ~ Electric Spot Welder: Signed [facility]03-05-2025 Evaluation note* Diagnosis Onset Date Resolution Status Admit Date Epilepsy, unspecified, not intractable, without status epilepticus chronic May 28, 2024 9:16am Vitamin B12 deficiency resolved Ma [facility] 2024 9:16am Vitamin D insufficiency resolved M arch 2024 9:16am [facility] Work Phone: 1(253) 737-639108-12-2023 Discharge summary Author Jefferson Lazar [facility] November 04, 2022 9:25am Note Date/Time November 04, 2022 7: 21am [facility] System Medical Records Department [address] [place] [address] Emergency Department Summary 11/04/22 MR#: [id number] Acct: [id number] Name: NAYLA BENNETT Rep #:[id number] : 1955 67 From: Jefferson Lazar MD PCP: Dr. Dean Felipe MD Status:REG E R Location: ED HPI HPI - Fall History of Present Illness Chief Complaint: Fall Informant: EMS Narrative Narrative: senior care resident who recently tested positive for COVID [...] he was able to walk to the [facility] forth. He is autistic and nonverbal at baseline according to their report. Patient is nonverbal and does not indicate anything in particular, but is cooperative with us. No history available from the patient. No report was given from the [facility] staff, our nurses called to discuss details. [...] he was just started on Paxlovid yesterday. [facility] Medical History Developmental non-verbal disorder Diabetes mellitus, type II Epilepsy, unspecified, not intractable, without status epilepticus HTN (hypertension) Hyperlipidemia Schizophrenia Seizure disorder Vitamin B12 deficiency Home Medications loratadine 10 mg tablet 10 mg PO DAILY 07/16/16 [History Last Taken Unknown] omega 7-ynz-imj-fish oil 300 mg-1,000 mg capsule 1 ea [...] Dr. Alice Mckeon, DO) housing: other details: senior care Smoking Status: Never smoker Electronic Cigarette Use: [...] motor deficits and no sensory deficits noted [place] Coma Scale: document GCS findings (within limits of exam given that pt is nonverbal; at baseline per EMS, per [facility] staff) Spontaneous Obeys Commands Oriented 15 Sensorium [...] try to be discharged back to the [facility] if at all possible even if on oxygen which she is needing. We discussed with the [facility], unfortunately they are not able to accommodate [...] Discussion w/independent historian: EMS personnel and Other ([facility] staff) Additional record(s) reviewed:: Prior labs Lab [...] 80.2 H Lymph % (Auto) 5.7 L [place] % (Auto) 13.2 H Eos % (Auto) [...] Hypoxemia, Fall Disposition Disposition: Acute Care Hospital [facility] What to do if you have Problems For any increased pain, shortness of breath, bleeding, nausea or vomiting, chestpain, or any unexpected problems, contact your Primary Care Provider. Call [facility] ([phone]) or report to the closest Emergency Room. Call 911 if necessary. 11/04/22 0925 <Electronically signed by Jefferson Lazar MD> Cosigner Signature (if applicable): CC: Dr. Dean Felipe MD ~ Signed [facility] Work Phone: 1(402) 839-894008-12-2023 History and physical note Author Alice Mckeon [facility] November 04, 2022 9:04am Note Date/Time November 04, 2022 8: 55am [facility] Medical Records Department [address] [place] [address] H&P Exam - Hospitalist 11/04/22 0841 MR#: [id number] Acct: [id number] Name: NAYLA BENNETT Rep #:[id number] : 1955 67 From: Alice Mckeon DO PCP: Dr. Dean Felipe MD Status:REG E R Location: ED HPI - General General Date of Admission: 11/04/22 Date of Service: 11/04/22 Chief Complaint: Fall HPI Narrative NAYLA BENNETT, is a 67 M who presented to the emergency department at [facility] on 11/04/2022 after sustaining a fall at his [facility]. All history is taken from what EMS reported to the ED physician in the ED staff discussing with [facility] staff. Patient is nonverbal at baseline. More reported that he did not appear injured to them but was unsteady on his feet while transporting him to the [facility] for transportation to the emergency department. Evidently [...] pending however outpatient study was positive per [facility]. Initial intent was to discharge back to the [facility] with oxygen per discussion with the guardian and the emergency department physician however the [facility] is unable to take oxygen and therefore admission was required. [facility] Medical History Developmental non-verbal disorder Diabetes mellitus, type II Epilepsy, unspecified, not intractable, without status epilepticus HTN (hypertension) Hyperlipidemia Schizophrenia Seizure disorder Vitamin B12 deficiency Home Medications loratadine 10 mg tablet 10 mg PO DAILY 07/16/16 [History Last Taken Unknown] omega 7-ouk-sxk-fish oil 300 mg-1,000 mg capsule 1 ea [...] Dr. Alice Mckeon, DO) housing: other details: senior care Smoking Status: Never smoker Electronic Cigarette Use: [...] 80.2 H, Lymph % (Auto) 5.7 L, [place] % (Auto) 13.2 H, Eos % (Auto) [...] GFR (MDRD) Non-Af 83, BUN/Creatinine Ratio 15.7, [id number] H, Calcium 8.5 Radiology Impression Chest X-Ray [...] should be able to discharge back to [facility]--> they are unable to accommodate oxygen Falls [...] with guardian Charges/Coding Visit Charges Inpatient E&M: 11941 Init Hosp L2 11/04/22 0904 <Electronically signed by Alice Mckeon DO> Cosigner Signature (if applicable): CC: Dr. Alice Mckeon DO; Dr. Dean Felipe MD~ Signed [facility] Work Phone: 1(264) 658-310108-12-2023 Discharge summary Author Jefferson Lazar [facility] November 04, 2022 9:25am Note Date/Time November 04, 2022 7: 21am [facility] System Medical Records Department [address] [place] [address] Emergency Department Summary 11/04/22 MR#: [id number] Acct: [id number] Name: NAYLA BENNETT Rep #:[id number] : 1955 67 From: Jefferson Lazar MD PCP: Dr. Dean Felipe MD Status:REG E R Location: ED HPI HPI - Fall History of Present Illness Chief Complaint: Fall Informant: EMS Narrative Narrative: senior care resident who recently tested positive for COVID [...] [facility] He is autistic and nonverbal at baseline according to their report. Patient is nonverbal and does not indicate anything in particular, but is cooperative with us. No history available from the patient. No report was given from the [facility] staff, our nurses called to discuss details. [...] he was just started on Paxlovid yesterday. [facility] Medical History Developmental non-verbal disorder Diabetes mellitus, type II Epilepsy, unspecified, not intractable, without status epilepticus HTN (hypertension) Hyperlipidemia Schizophrenia Seizure disorder Vitamin B12 deficiency Home Medications loratadine 10 mg tablet 10 mg PO DAILY 07/16/16 [History Last Taken Unknown] omega 1-ssc-clz-fish oil 300 mg-1,000 mg capsule 1 ea [...] Dr. Alice Mckeon, DO) housing: other details: senior care Smoking Status: Never smoker Electronic Cigarette Use: [...] is nonverbal; at baseline per EMS, per [facility] staff) Spontaneous Obeys Commands Oriented 15 Sensorium [...] try to be discharged back to the [facility] if at all possible even if on oxygen which she is needing. We discussed with the [facility], unfortunately they are not able to accommodate [...] Discussion w/independent historian: EMS personnel and Other ([facility] staff) Additional record(s) reviewed:: Prior labs Lab [...] 80.2 H Lymph % (Auto) 5.7 L [place] % (Auto) 13.2 H Eos % (Auto) [...] COVID-19, Hypoxemia, Fall Disposition Disposition: Acute Care [facility] What to do if you have Problems For any increased pain, shortness of breath, bleeding, nausea or vomiting, chestpain, or any unexpected problems, contact your Primary Care Provider. Call [facility] ([phone]) or report to the closest Emergency Room. Call 911 if necessary. 11/04/22924 <Electronically signed by Jefferson Lazar MD> Cosigner Signature (if applicable): CC: Dr. Dean Felipe MD ~ Signed [facility] Work Phone: Chiyu complaint+Reason for visit Narrative* Chief Complaint HYPOXIA,/COVID PNA FALL Reason for Visit COVID-19 Fall Hypoxemia [facility] Work Phone: Chigy complaint+Reason for visit Narrative* Chief Complaint HYPOXIA,/COVID PNA FALL HYPOXIA,/COVID PNA Reason for Visit COVID-19 Fall Hypoxemia [facility] Work Phone: Consult note Author Rafa Dior [facility] Note Date/Time January 02, 2025 3 :18pm [facility] Medical Records Department [address] [place] [address] Counseling Note - Pharmacy 01/02/25 1400 MR#: [id number] Acct: [id number] Name: NAYLA BENNETT Rep #:[id number] : 1955 69 From: Rafa rosen PCP: Dr. Eddi Lynn MD Status:ADM IN Location: [place] [address] Pharmacy [place] Med Reconciliation Pharmacy Service has performed discharge medication reconciliation for this patient. The patient's discharge medication list was reviewed for discrepancies and discrepancies were resolved. Medications at Discharge Home Medications loratadine 10 mg tablet 10 mg PO DAILY allergies 07/16/16 omega 7-vvl-hwk-fish oil 300 mg-1,000 mg capsule 1 ea PO BID supplement 07/16/16 risperidone 3 mg tablet 3 mg PO QHS mental health 07/16/16 atorvastatin 40 mg tablet 40 mg PO QHS cholesterol 11/27/19 metformin 1,000 mg tablet 1,000 mg PO BID diabetes 11/27/19 fluticasone propionate 50 mcg/actuation nasal spray,suspension 1 spray intranasal QHS 12/02/19 polyethylene glycol 3350 17 gram oral powder packet 17 g PO BID constipation 12/02/19 tamsulosin 0.4 mg capsule 0.4 mg PO DAILY prostate 12/02/19 levothyroxine 50 mcg tablet 50 mcg PO QDAY thyroid 11/28/23 cholecalciferol (vitamin D3) 1,250 mcg (50,000 unit) capsule 1,250 mcg PO QMONTHvitamin #1 cap 05/28/24 mecobalamin (vitamin B12) 1,000 mcg chewable tablet (B12 Active) 1,000 mcg PO DAILY vitamin #30 tabs 05/28/24 chlorhexidine gluconate 0.12 % mouthwash 15 ml buccal BID mouth sores 11/26/24 olmesartan 40 mg tablet 40 mg PO QAM blood pressure #30 tabs 11/26/24 phenobarbital 60 mg tablet 120 mg (2 x 60 mg) PO QHS seizures #56 tabs 11/26/24 amlodipine 10 mg tablet (Norvasc) 10 mg PO DAILY blood pressure #30 tabs 12/19/24 beta carotene 30 mg capsule 30 mg PO DAILY supplement 12/22/24 levetiracetam 1,000 mg tablet 1,000 mg PO BID seizures 12/22/24 carvedilol 25 mg tablet 25 mg PO BIDCM #60 tabs 01/02/25 hydralazine 50 mg tablet 50 mg PO TID #90 tabs 01/02/25 sodium chloride 1,000 mg soluble tablet 1,000 mg PO TID #90 tabs 01/02/25 01/02/25 1400 <Electronically signed by Rafa Marquez> Date _ Rafa Corral Signature (if applicable): Date CC: ~ Signed [facility] Work Phone: Consult note Author Malick Lind [facility] Note Date/Time January 12, 2025 2 :28pm [facility] Medical Records Department [address] [place] [address] Counseling Note - Pharmacy 01/12/25 1414 MR#: [id number] Acct: [id number] Name: NAYLA BENNETT Rep #:[id number] : 1955 69 From: Malick Lind PCP: Dr. Eddi Lynn MD Status:ADM IN Y Location: [place] [address] Pharmacy [place] Med Reconciliation Pharmacy Service has performed discharge medication reconciliation for this patient. The patient's discharge medication list was reviewed for discrepancies and discrepancies were resolved. Medications at Discharge Home Medications loratadine 10 mg tablet 10 mg PO DAILY allergies 07/16/16 atorvastatin 40 mg tablet 40 mg PO QHS cholesterol 11/27/19 metformin 1,000 mg tablet 1,000 mg PO BID diabetes 11/27/19 fluticasone propionate 50 mcg/actuation nasal spray,suspension 1 spray intranasal QHS 12/02/19 tamsulosin 0.4 mg capsule 0.4 mg PO DAILY prostate 12/02/19 levothyroxine 50 mcg tablet 50 mcg PO QDAY thyroid 11/28/23 cholecalciferol (vitamin D3) 1,250 mcg (50,000 unit) capsule 1,250 mcg PO QMONTHvitamin #1 cap 05/28/24 chlorhexidine gluconate 0.12 % mouthwash 15 ml buccal BID mouth sores 11/26/24 olmesartan 40 mg tablet 40 mg PO QAM blood pressure #30 tabs 11/26/24 phenobarbital 60 mg tablet 120 mg (2 x 60 mg) PO QHS seizures #56 tabs 11/26/24 amlodipine 10 mg tablet (Norvasc) 10 mg PO DAILY blood pressure #30 tabs 12/19/24 beta carotene 30 mg capsule 30 mg PO DAILY supplement 12/22/24 carvedilol 25 mg tablet 25 mg PO BIDCM blood pressure #60 tabs 01/02/25 hydralazine 50 mg tablet 50 mg PO TID blood pressure #90 tabs 01/02/25 sodium chloride 1,000 mg soluble tablet 1,000 mg PO TID low sodium #90 tabs 01/02/25 cyanocobalamin (vitamin B-12) 1,000 mcg sublingual tablet 1,000 mcg sublingual DAILY supplement 01/08/25 levetiracetam 750 mg tablet 1,500 mg PO BID seizures 01/08/25 omega-3 fatty acids-fish oil 300 mg-1,000 mg capsule 1 cap PO BID supplement 01/08/25 polyethylene glycol 3350 17 gram/dose oral powder 17 g PO BID constipation 01/08/25 risperidone 3 mg tablet (Risperdal) 3 mg PO QHS 01/08/25 furosemide 40 mg tablet 40 mg PO DAILY 30 days #30 tabs 01/12/25 01/12/25 1414 <Electronically signed by Malick chapa> Date _ Malick Lind Cosigner Signature (if applicable): Date CC: ~ Signed [facility] Work Phone: Consult note Author Malick Lind [facility] Note Date/Time January 12, 2025 3 :28pm [facility] Medical Records Department [address] [place] [address] Counseling Note - Pharmacy 01/12/25 1414 MR#: [id number] Acct: [id number] Name: NAYLA BENNETT Rep #:[id number] : 1955 69 From: Malick Lind PCP: Dr. Eddi Lynn MD Status:ADM IN Location: [place] [address] Pharmacy [place] Med Reconciliation Pharmacy Service has performed discharge medication reconciliation for this patient. The patient's discharge medication list was reviewed for discrepancies and discrepancies were resolved. Medications at Discharge Home Medications loratadine 10 mg tablet 10 mg PO DAILY allergies 07/16/16 atorvastatin 40 mg tablet 40 mg PO QHS cholesterol 11/27/19 metformin 1,000 mg tablet 1,000 mg PO BID diabetes 11/27/19 fluticasone propionate 50 mcg/actuation nasal spray,suspension 1 spray intranasal QHS 12/02/19 tamsulosin 0.4 mg capsule 0.4 mg PO DAILY prostate 12/02/19 levothyroxine 50 mcg tablet 50 mcg PO QDAY thyroid 11/28/23 cholecalciferol (vitamin D3) 1,250 mcg (50,000 unit) capsule 1,250 mcg PO QMONTHvitamin #1 cap 05/28/24 chlorhexidine gluconate 0.12 % mouthwash 15 ml buccal BID mouth sores 11/26/24 olmesartan 40 mg tablet 40 mg PO QAM blood pressure #30 tabs 11/26/24 phenobarbital 60 mg tablet 120 mg (2 x 60 mg) PO QHS seizures #56 tabs 11/26/24 amlodipine 10 mg tablet (Norvasc) 10 mg PO DAILY blood pressure #30 tabs 12/19/24 beta carotene 30 mg capsule 30 mg PO DAILY supplement 12/22/24 carvedilol 25 mg tablet 25 mg PO BIDCM blood pressure #60 tabs 01/02/25 hydralazine 50 mg tablet 50 mg PO TID blood pressure #90 tabs 01/02/25 sodium chloride 1,000 mg soluble tablet 1,000 mg PO TID low sodium #90 tabs 01/02/25 cyanocobalamin (vitamin B-12) 1,000 mcg sublingual tablet 1,000 mcg sublingual DAILY supplement 01/08/25 levetiracetam 750 mg tablet 1,500 mg PO BID seizures 01/08/25 omega-3 fatty acids-fish oil 300 mg-1,000 mg capsule 1 cap PO BID supplement 01/08/25 polyethylene glycol 3350 17 gram/dose oral powder 17 g PO BID constipation 01/08/25 risperidone 3 mg tablet (Risperdal) 3 mg PO QHS 01/08/25 furosemide 40 mg tablet 40 mg PO DAILY 30 days #30 tabs 01/12/25 01/12/25 1414 <Electronically signed by Malick chapa> Date _ Malick Corral Signature (if applicable): Date CC: ~ Signed [facility] Work Phone: Discharge summary Author Alice Mckeon [facility] November 05, 2022 12:02pm Note Date/Time November 05, 2022 11 :59am [facility] Medical Records Department [address] [place] [address] Discharge Summary 11/05/22 1152 MR#: [id number] Acct: [id number] Name: NAYLA BENNETT Rep #:[id number] : 1955 67 From: Alice Mckeon DO PCP: Dr. Dean Felipe MD Status:ADM I N [id number] Providers Date of Admission: 11/04/22 Date of [...] mg PO DAILY PRN allergies 07/16/16 omega 8-xqj-efq-fish oil 300 mg-1,000 mg capsule 1 ea [...] who presented to the emergency department at [facility] on 11/04/2022 after sustaining a fall at his [facility]. All history was taken from the EMS report and the ED physician after theydiscussed the case with his [facility] staff as he is nonverbal at baseline. [...] was to discharge him back to his [facility] with oxygen as he wasrequiring 2 L due to an oxygen saturation of 88% on room air however his [facility] was not able to take him with [...] we will discharge him back to his [facility]. I will continue his Decadron and would [...] stable condition on 11/05/2021 back to his [facility] with prescription for Decadron to complete 8 [...] lying in bed, appears comfortable and nontoxic, nursing agency manager at bedside getting cleaned up General Appearance: [...] Clarity Clear, Urine pH 6.5, Ur Specific [place] 1.010, Urine Protein 30 H, Urine Glucose [...] % (Auto) 55.5, Lymph % (Auto) 25.1, [place] % (Auto) 18.0 H, Eos % (Auto) [...] tablet 10 mg PO DAILY PRN omega 7-mxm-bja-fish oil 1 EACH capsule 1 ea PO BID Referrals / Follow Up: Dean Felipe Chi, MD [Primary Care Provider] - Within 2 Weeks Disposition Disposition (needs filled in before D/C Order can be placed): Home, Self Care 11/05/22 1202 <Electronically signed by Alice Mckeon DO> Cosigner Signature (if applicable): CC: Dr. Alice Mckeon DO; Dr. Dean Felipe MD~ Signed [facility] Work Phone: Discharge summary Author Kal Laguna [facility] Note Date/Time January 12, 2025 1 :17pm [facility] Medical Records Department [address] [place] [address] Instructions for Home/Discharge Instructions 01/12/25 1233 MR#: [id number] Acct: [id number] Name: NAYLA BENNETT Rep #:[id number] : 1955 69 From: Kal wade DO PCP: Dr. Eddi Lynn MD Status:ADM IN Discharge Instructions DC O2, CPAP, BIPAP needs Home O2 Discharge instructions: No Dressing / Incision Discharge Activity: No Restrictions Follow Up Care Test Results: Test results from this visit will be discussed in further detail at your follow- up appointment, if applicable. Discharge Plan Admission Admit Date/Time: 01/09/25 00:01 Primary Reason for Your Visit: Shortness of breath Attending Provider: Kal Laguna Primary Care Provider: Eddi Lynn Consulting Providers: Katie Rosenbaum; Corey Pelaez Instructions Additional Instructions / Restrictions: Start taking Lasix 40 mg daily. Please have a repeat BMP drawn in 5 to 7 days to monitor kidney function. Discharge Orders/Prescriptions Prescriptions: New furosemide 40 mg Tablet 40 mg PO DAILY 30 Days Qty: 30 0RF Continued metformin 1,000 mg tablet 1,000 mg PO BID atorvastatin 40 mg tablet 40 mg PO QHS fluticasone propionate 50 mcg/actuation spray,suspension 1 spray INTRANASAL QHS Rx Instructions: administer into each nostril tamsulosin 0.4 mg capsule 0.4 mg PO DAILY chlorhexidine gluconate 0.12 % mouthwash 15 ml BUCCAL BID levothyroxine 50 mcg tablet 50 mcg PO QDAY cholecalciferol (vitamin D3) 1,250 mcg (50,000 unit) capsule 1,250 mcg PO QMONTH Qty: 1 7RF Patient Comments: TAKES ON THE OF EACH MONTH olmesartan 40 mg tablet 40 mg PO QAM Qty: 30 6RF phenobarbital 60 mg tablet 120 mg PO QHS Qty: 56 5RF loratadine 10 MG tablet 10 mg PO DAILY beta carotene 30 mg capsule 30 mg PO DAILY carvedilol 25 mg Tablet 25 mg PO BIDCM Qty: 60 2RF hydralazine 50 mg Tablet 50 mg PO TID Qty: 90 2RF sodium chloride 1,000 mg Tablet,Soluble 1,000 mg PO TID Qty: 90 0RF amlodipine [Norvasc] 10 mg tablet 10 mg PO DAILY Qty: 30 0RF cyanocobalamin (vitamin B-12) 1,000 mcg tablet, sublingual 1,000 mcg sublingual DAILY levetiracetam 750 mg tablet 1,500 mg PO BID polyethylene glycol 3350 17 gram/dose powder 17 g PO BID Rx Instructions: MIX IN 4-8OZ WATER omega-3 fatty acids-fish oil 300-1,000 mg capsule 1 cap PO BID risperidone [Risperdal] 3 mg tablet 3 mg PO QHS Other Ambulatory Orders: Basic Metabolic Profile (BMP) (Routine) Timeframe: 5 Days Facility: [facility] - Location: Laboratory Ordered By: Dr. Kal Laguna Referrals / Follow Up: Eddi Lynn MD [Primary Care Provider, Family Practice] Disposition Disposition (needs filled in before D/C Order can be placed): NonSkilled NH/Intermed Care 01/12/25 1317<Electronically signed by Kal Laguna DO>Kal Laguna DO CC: Dr. Eddi Lynn MD; Dr. Corey Pelaez DO; Dr. Katie Rosenbaum MD ~ Signed [facility] Work Phone: Discharge summary Author Kal Laguna [facility] Note Date/Time January 12, 2025 1 :44pm [facility] System Medical Records Department [address] [place] [address] Discharge Summary 01/12/25 1234 MR#: [id number] Acct: [id number] Name: TRAVISNAYLAJORI COLORADO Rep #:[id number] : 1955 69 From: Kal wade DO PCP: Dr. Eddi Lynn MD Status:ADM IN Location: [facility] [id number] Providers Date of Admission: 01/09/25 Date of Discharge: 01/12/25 Primary Care Physician: Eddi Lynn MD Reason For Visit: ACUTE CHF EXACERBATION Diagnosis Discharge Diagnosis (1) CHF (congestive heart failure): Status: Acute Code(s): I50.9 - Heart failure, unspecified Medications at Discharge Home Medications loratadine 10 mg tablet 10 mg PO DAILY allergies 07/16/16 atorvastatin 40 mg tablet 40 mg PO QHS cholesterol 11/27/19 metformin 1,000 mg tablet 1,000 mg PO BID diabetes 11/27/19 fluticasone propionate 50 mcg/actuation nasal spray,suspension 1 spray intranasal QHS 12/02/19 tamsulosin 0.4 mg capsule 0.4 mg PO DAILY prostate 12/02/19 levothyroxine 50 mcg tablet 50 mcg PO QDAY thyroid 11/28/23 cholecalciferol (vitamin D3) 1,250 mcg (50,000 unit) capsule 1,250 mcg PO QMONTHvitamin #1 cap 05/28/24 chlorhexidine gluconate 0.12 % mouthwash 15 ml buccal BID mouth sores 11/26/24 olmesartan 40 mg tablet 40 mg PO QAM blood pressure #30 tabs 11/26/24 phenobarbital 60 mg tablet 120 mg (2 x 60 mg) PO QHS seizures #56 tabs 11/26/24 amlodipine 10 mg tablet (Norvasc) 10 mg PO DAILY blood pressure #30 tabs 12/19/24 beta carotene 30 mg capsule 30 mg PO DAILY supplement 12/22/24 carvedilol 25 mg tablet 25 mg PO BIDCM blood pressure #60 tabs 01/02/25 hydralazine 50 mg tablet 50 mg PO TID blood pressure #90 tabs 01/02/25 sodium chloride 1,000 mg soluble tablet 1,000 mg PO TID low sodium #90 tabs 01/02/25 cyanocobalamin (vitamin B-12) 1,000 mcg sublingual tablet 1,000 mcg sublingual DAILY supplement 01/08/25 levetiracetam 750 mg tablet 1,500 mg PO BID seizures 01/08/25 omega-3 fatty acids-fish oil 300 mg-1,000 mg capsule 1 cap PO BID supplement 01/08/25 polyethylene glycol 3350 17 gram/dose oral powder 17 g PO BID constipation 01/08/25 risperidone 3 mg tablet (Risperdal) 3 mg PO QHS 01/08/25 furosemide 40 mg tablet 40 mg PO DAILY 30 days #30 tabs 01/12/25 Hospital Course Operations None Procedures EKG, Transthoracic echo and - (Chest x-ray x 2, CTA chest, CT abdomen pelvis) Summary of Care Provided Minutes Spent on Discharge: 41 Hospital Course: Patient is a 69-year-old male who presented to [facility] ED on 01/09/2025 with shortness of breath. Hospital course as noted below. Patient discharged back to [facility] in stable condition on 01/12. 1. Acute HFpEF with hypoxia, improved ? Presented with worsening shortness of breath. CTA chest with no PE, did show moderate cardiomegaly with mild bilateral pleural effusions and moderate interstitial pulmonary congestion. BNP elevated at 1535. Echo in 01/09 showed EF 65%, stage III diastolic dysfunction, moderate concentric LV hypertrophy, mild enlarged LA, no other concerning findings. Suspect HFpEF exacerbation was secondary to poorly controlled hypertension. Was hypoxic requiring 2 L nasal cannula on admission, weaned back to room air at rest by discharge. Diuresed well with IV Lasix while inpatient. Will discharge on p.o. Lasix 40 mg daily inaddition to antihypertensive regimen as below. Will plan to repeat BMP in 5 to 7 days to monitor kidney function. 2. Hypertension/hyperlipidemia ? Hypertensive to the 200s systolic on admit. Hypertension improved during hospitalization with IV diuresis. Starting p.o. Lasix on discharge as above. Otherwise continue home amlodipine, Coreg, hydralazine, and olmesartan. Continue home statin. 3. Chronic hyponatremia ? Baseline sodium 128-132. Remained stable at baseline during hospitalization. Continue home sodium chloride tablets. 4. Autism with intellectual impairment and developmental delay ? Case management followed. Patient lives in a [facility], is nonverbal at baseline. Complicated hospital course and care. Patient stable for discharge back to [facility] on 01/12. Continue home Risperdal. Chronic medical conditions: ? Class I obesity: BMI 33 on admit. Complicated hospital course and care. ? Type 2 diabetes mellitus: Treated with sliding scale insulin with meals while inpatient with adequate glucose control. Okay to resume home metformin on discharge. ? Hypothyroidism: Continue home Synthroid. ? BPH with obstructive symptoms: Continue home Flomax. ? Seizure disorder: Continue home Keppra and phenobarbital. Total clinical time spent by myself addressing the patient's medical issues, reviewing all the data, and collaborating with patient's care team: 41 minutes. Physical Exam Narrative alert and no apparent distress Constitutional Narrative: Patient appears older than his stated age, he is nonverbal and does not follow commands or respond to speech General Appearance: well developed HEENT normocephalic, head/scalp atraumatic and moist oral mucous membranes Eyes PERRL, EOMs intact bilaterally and conjunctivae normal Neck no JVD and thyroid normal General: trachea midline Resp normal respiratory effort, no retractions, no use of accessory muscles and clearto auscultation bilaterally Auscultation: Negative for rales, rhonchi or wheezes Cardio regular rate, regular rhythm, S1 normal heart sound, S2 normal heart sound, no murmurs, no rub and no gallops GI normal to inspection, nondistended, normoactive bowel sounds, soft to palpation,non-tender and non-distended Extremity no clubbing, cyanosis or edema Skin no rashes or lesions noted General Skin Exam: no breakdown Neuro CN's II-XII intact bilaterally Neuro Narrative: Patient is nonverbal and does not respond to commands or conversation Sensorium / Orientation: awake and alert Psych Psych Narrative: Patient is nonverbal and does not respond to commands or conversation Weight / BMI Weight Weight: 107 kg Body Mass Index (BMI) 33.8 ABG / Lab / Microbiology Data 01/09/25 04:58 01/09/25 04:58 D/C Instructions DC O2, CPAP, BIPAP Needs Home O2 Discharge instructions: No Meaningful Use Info Meaningful Use Meaningful Use Diagnoses (Choose all that apply): CHF CHF TOÑO/ARB ordered at discharge?: Yes Documented LVEF (%): 65 Discharge Plan Admission Admit Date/Time: 01/09/25 00:01 Primary Reason for Your Visit: Shortness of breath Attending Provider: Kal Laguna Primary Care Provider: Eddi Lynn Consulting Providers: Katie Rosenbaum; Corey Pelaez Instructions Additional Instructions / Restrictions: Start taking Lasix 40 mg daily. Please have a repeat BMP drawn in 5 to 7 days to monitor kidney function. Discharge Orders/Prescriptions Prescriptions: New furosemide 40 mg Tablet 40 mg PO DAILY 30 Days Qty: 30 0RF Continued metformin 1,000 mg tablet 1,000 mg PO BID atorvastatin 40 mg tablet 40 mg PO QHS fluticasone propionate 50 mcg/actuation spray,suspension 1 spray INTRANASAL QHS Rx Instructions: administer into each nostril tamsulosin 0.4 mg capsule 0.4 mg PO DAILY chlorhexidine gluconate 0.12 % mouthwash 15 ml BUCCAL BID levothyroxine 50 mcg tablet 50 mcg PO QDAY cholecalciferol (vitamin D3) 1,250 mcg (50,000 unit) capsule 1,250 mcg PO QMONTH Qty: 1 7RF Patient Comments: TAKES ON THE 20TH OF EACH MONTH olmesartan 40 mg tablet 40 mg PO QAM Qty: 30 6RF phenobarbital 60 mg tablet 120 mg PO QHS Qty: 56 5RF loratadine 10 MG tablet 10 mg PO DAILY beta carotene 30 mg capsule 30 mg PO DAILY carvedilol 25 mg Tablet 25 mg PO BIDCM Qty: 60 2RF hydralazine 50 mg Tablet 50 mg PO TID Qty: 90 2RF sodium chloride 1,000 mg Tablet,Soluble 1,000 mg PO TID Qty: 90 0RF amlodipine [Norvasc] 10 mg tablet 10 mg PO DAILY Qty: 30 0RF cyanocobalamin (vitamin B-12) 1,000 mcg tablet, sublingual 1,000 mcg sublingual DAILY levetiracetam 750 mg tablet 1,500 mg PO BID polyethylene glycol 3350 17 gram/dose powder 17 g PO BID Rx Instructions: MIX IN 4-8OZ WATER omega-3 fatty acids-fish oil 300-1,000 mg capsule 1 cap PO BID risperidone [Risperdal] 3 mg tablet 3 mg PO QHS Other Ambulatory Orders: Basic Metabolic Profile (BMP) (Routine) Timeframe: 5 Days Facility: [facility] - Location: Laboratory Ordered By: Dr. Kal Laguna Referrals / Follow Up: Eddi Lynn MD [Primary Care Provider, Family Practice] Disposition Disposition (needs filled in before D/C Order can be placed): NonSkilled NH/Intermed Care Charges/Coding Visit Charges Inpatient E&M: 02910 Disch Hosp >30min 01/12/25 1344 <Electronically signed by Kal Laguna DO> Cosigner Signature (if applicable): CC: Dr. Kal Laguna DO; Dr. Eddi Lynn MD~ Signed [facility] Work Phone: Evaluation noteNo assessment information available [facility] Work Phone: evaluation note* Diagnosis Onset Date Resolution Status Epilepsy, unspecified, not i ntractable, without status epilepticus acute Vitamin B12 deficiency acute Vitamin D insufficiency acut e [facility] Work Phone: Evaluation note* Diagnosis Onset Date Resolution Status COVID-19 acute Fall acute Hypoxemia acute [facility] Work Phone: Evaluation note* Diagnosis Onset Date Resolution Status COVID-19 acute Fall resolved Hypoxemia resolved Epilepsy, unspecified, not i ntractable, without status epilepticus chronic Vitamin B12 deficiency resol sybil Vitamin D insufficiency reso [facility] Work Phone: evaluation note* Diagnosis Onset Date Resolution Status Epilepsy, unspecified, not i ntractable, without status epilepticus chronic Vitamin B12 deficiency resol sybil Vitamin D insufficiency reso [facility] Work Phone: Evaluation note* Diagnosis Onset Date Resolution Status Admit Date Epilepsy, unspecified, not intractable, without status epilepticus chronic November 26, 025 10:31am Vitamin B12 deficiency resolved Se ptember 2024 10:31am Vitamin D insufficiency resolved S eptember 2024 10:31am [facility] Work Phone: History and physical note Author Alice Mckeon [facility] November 04, 2022 9:04am Note Date/Time November 04, 2022 8: 55am [facility] System Medical Records Department [address] [place] [address] H&P Exam - Hospitalist 11/04/22 0841 MR#: [id number] Acct: [id number] Name: TRAVISNAYLAJORI COLORADO Rep #:[id number] : 1955 67 From: Alice Mckeon DO PCP: Dr. Dean Felipe MD Status:REG E R Location: ED HPI - General General Date of Admission: 11/04/22 Date of Service: 11/04/22 Chief Complaint: Fall HPI Narrative NAYLA RING, is a 67 M who presented to the emergency department at [facility] on 11/04/2022 after sustaining a fall at his [facility]. All history is taken from what EMS reported to the ED physician in the ED staff discussing with [facility] staff. Patient is nonverbal at baseline. More reported that he did not appear injured to them but was unsteady on his feet while transporting him to the [facility] for transportation to the emergency department. Evidently [...] pending however outpatient study was positive per [facility]. Initial intent was to discharge back to the [facility] with oxygen per discussion with the guardian and the emergency department physician however the ch[facility] is unable to take oxygen and therefore admission was required. [facility] Medical History Developmental non-verbal disorder Diabetes mellitus, type II Epilepsy, unspecified, not intractable, without status epilepticus HTN (hypertension) Hyperlipidemia Schizophrenia Seizure disorder Vitamin B12 deficiency Home Medications loratadine 10 mg tablet 10 mg PO DAILY 07/16/16 [History Last Taken Unknown] omega 1-kkc-tpw-fish oil 300 mg-1,000 mg capsule 1 ea [...] Surgical History (Updated 06/01/22 @ 12:57 by mAna Kapadia) No history of previous surgery Surgical History unable to obtain unable to obtain Social History (Updated 11/04/22 @ 08:[address] Alice Mckeon, DO) housing: other details: senior care Smoking Status: Never smoker Electronic Cigarette Use: [...] 80.2 H, Lymph % (Auto) 5.7 L, [place] % (Auto) 13.2 H, Eos % (Auto) [...] GFR (MDRD) Non-Af 83, BUN/Creatinine Ratio 15.7, [id number] H, Calcium 8.5 Radiology Impression Chest X-Ray [...] should be able to discharge back to [facility]--> they are unable to accommodate oxygen [place] [...] with guardian Charges/Coding Visit Charges Inpatient E&M: 61831 Init Hosp L2 11/04/22 0904 <Electronically signed by Alice Mckeon DO> Cosigner Signature (if applicable): CC: Dr. Alice Mckeon DO; Dr. Dean Felipe MD~ Signed [facility] Work Phone: History and physical note Author [facility] Note Date/Time January 09, 2025 6 :[address] [place] [address] Health System Medical Records Department [address] [place] [address] H&P Exam - Hospitalist 01/08/25 2346 MR#: [id number] Acct: [id number] Name: NAYLA BENNETT Rep #:[id number] : 1955 69 From: Katie Rosenbaum MD PCP: Dr. Eddi Lynn MD Status:ADM IN [facility] - General General Date of Admission: 01/09/25 Date of Service: 01/08/25 Chief Complaint: hypertension HPI Narrative NAYLA BENNETT, is a 69 M who with a PMH as outlined including autism (nonverbal atbaseline), diabetes mellitus, seizures and schizophrenia as well as recurrent UTIs. He was noted to be short of breath by the staff in his facility. They alsoquestioned whether he was having some abdominal pain. He had not noted him having any fever or any elevated heart rate and no vomiting, diarrhea or any other symptoms. Unable to do review of systems with patient as he is nonverbal.History was obtained from a staff of his facility who was present at time of review. Vitals at time of review were blood pressure of 169/77, pulse rate of 79 respiratory rate of 18. Temperature was 98 Fahrenheit and he was saturating at 97% on room air. CBC showed hemoglobin of 10.9 with WBC of 13.1 and platelets of 321. D-dimer was less than 0.27. Chemistry showed sodium of 129 potassium of 4.4 and bicarb of 22.2. Creatinine was 0.85. Initial troponin was 30 with delta troponin of 31. proBNP was elevated at 1535. Urinalysis showed No evidence of UTI. Chest x-ray showed possible mild CHF and possible left lung base airspace disease. CT of the chest was done and read was still pending at time of my review. Of note patient was recently discharged only on 01/02/2025 after being admitted to be managed for hyponatremia [facility] Medical History Developmental non-verbal disorder Vitamin B12 deficiency Epilepsy, unspecified, not intractable, without status epilepticus Schizophrenia Seizure disorder Hyperlipidemia HTN (hypertension) Diabetes mellitus, type II Home Medications ?Medication ?Instructions ?Recorded ?Last Taken ?Type loratadine 10 mg tablet 10 mg PO DAILY allergies Unknown History atorvastatin 40 mg tablet 40 mg PO QHS cholesterol 06/12 Unknown History metformin 1,000 mg tablet 1,000 mg PO BID diabetes 06/12 Unknown History fluticasone propionate 50 1 spray intranasal QHS 12/01 Unknown History mcg/actuation nasal spray,suspension tamsulosin 0.4 mg capsule 0.4 mg PO DAILY prostate 11/12 Unknown History levothyroxine 50 mcg tablet 50 mcg PO QDAY thyroid 07/17 Unknown History cholecalciferol (vitamin D3) 1,250 1,250 mcg PO QMONTH vitamin #1 cap 05/28/24 Unknown Rx mcg (50,000 unit) capsule chlorhexidine gluconate 0.12 % 15 ml buccal BID mouth sores 11/26/24 Unknown History mouthwash olmesartan 40 mg tablet 40 mg PO QAM blood pressure #30 11/26/24 Unknown Rx tabs phenobarbital 60 mg tablet 120 mg (2 x 60 mg) PO QHS s eizures 11/26/24 Unknown Rx #56 tabs amlodipine 10 mg tablet (Norvasc) 10 mg PO DAILY blood pressure #30 12/19/24 Unknown Rx tabs beta carotene 30 mg capsule 30 mg PO DAILY supplement 12/22/24 Unknown History carvedilol 25 mg tablet 25 mg PO BIDCM #60 tabs 12/24 Unknown Rx hydralazine 50 mg tablet 50 mg PO TID #90 tabs Unknown Rx sodium chloride 1,000 mg soluble 1,000 mg PO TID #90 t abs 01/02/25 Unknown Rx tablet cyanocobalamin (vitamin B-12) 1,000 mcg sublingual BREA LY 01/08/25 Unknown History 1,000 mcg sublingual tablet levetiracetam 750 mg tablet 1,500 mg PO BID 01/08/25 U nknown History omega-3 fatty acids-fish oil 300 1 cap PO BID 01/08/25 Unknown History mg-1,000 mg capsule polyethylene glycol 3350 17 17 g PO BID 01/08/25 Unkno wn History gram/dose oral powder risperidone 3 mg tablet (Risperdal) 3 mg PO QHS Unknown History Allergy/AdvReac Type Severity Reaction Status Date / Time hydrochlorothiazide AdvReac Severe Hyponatremi Verified 12/30/24 21:31 a metformin AdvReac Severe Lactic Verified 12/30/24 21:31 Acidosis Surgical History No history of previous surgery Social History housing: other details: senior care Smoking Status: Never smoker Electronic Cigarette Use: not used second hand exposure: No alcohol intake: never substance use type: does not use seatbelt use: always ROS Review of Systems ROS Unobtainable: due to mental status and other Details: nonverbal due to autism. Vital Signs Vital Signs Vital Signs: 01/08/25 18:37 01/08/25 18:43 01/08/25 20:36 Temperature 98 F Temperature Source Axillary Pulse Rate 88 84 Respiratory Rate 18 22 H Respiratory Effort Normal Respiratory Pattern Normal Blood Pressure 179/70 H 191/66 H Blood Pressure Mean 106 107 Pulse Ox 95 88 Oxygen Delivery Method Room Air Room Air Oxygen Flow Rate (L/min) 01/08/25 20:39 01/08/25 21:35 01/08/25 22:00 Temperature Temperature Source Pulse Rate 82 73 Respiratory Rate 23 H 18 Respiratory Effort Respiratory Pattern Blood Pressure 169/60 H 164/65 H Blood Pressure Mean 96 98 Pulse Ox 95 96 Oxygen Delivery Method Nasal Cannula Nasal Cannula Nasal Cannula Oxygen Flow Rate (L/min) 2 Weight Weight: 239 lb 13.807 oz Body Mass Index (BMI) 32.5 Physical Exam Const alert Constitutional Narrative: chronically nonverbal General Appearance: cooperative HEENT normocephalic, head/scalp atraumatic and moist oral mucous membranes Mouth: oral and palatal mucosa normal Eyes EOMs intact bilaterally and conjunctivae normal Neck supple and no JVD Resp Resp Narrative: mildly diminished breath sounds bibasally, no wheezes or crackles. On 2L by nasal canula Cardio regular rate, regular rhythm, S1 normal heart sound, S2 normal heart sound and no murmurs GI soft to palpation and non-tender GI Narrative: significant abdominal distension, tympanitic to percussion, no tenderness. NO guarding or rebound tenderness. Extremity normal to inspection and full ROM Neuro moves all extremities Sensorium / Orientation: awake and alert Psych Psych Narrative: history of autism. Chronically nonverbal Results Lab / Micro Data 01/09/25 04:58 01/09/25 04:58 Labs: Laboratory Results - last 24 hr 01/08/25 20:05: WBC 13.1 H, RBC 3.62 L, Hgb 10.9 L, Hct 32.4 L, MCV 89.5, MCH 30.1, MCHC 33.6, RDW Std Deviation 40.0, RDW Coeff of Celi 12.3, Plt Count 321, MPV 9.1, Immature Gran % (Auto) 0.500, Neut % (Auto) 78.1 H, Lymph % (Auto) 10.5L, [place] % (Auto) 10.1 H, Eos % (Auto) 0.5, Baso % (Auto) 0.3, Absolute Neuts (auto) 10.2 H, Absolute Lymphs (auto) 1.38, Nucleated RBC % 0, Sodium 129 L, Potassium 4.4, Chloride 94 L, Carbon Dioxide 22.2, Anion Gap 13, BUN 17, Creatinine 0.85, Estim Creat Clear Calc 103.03, Est GFR (MDRD) Non-Af 93, BUN/Creatinine Ratio 19.4, Glucose 193 H, Calcium 8.8, Total Bilirubin 0.22, AST23, ALT 24, Alkaline Phosphatase 82, Troponin T High Sens 30 H, NT pro BNP II 1535 H, Total Protein 6.5, Albumin 3.9, Globulin 2.6, Albumin/Globulin Ratio 1.5, Lipase 22 01/08/25 20:25: Urine Color Yellow, Urine Clarity Clear, Urine pH 6.0, Ur Specific [place] 1.015, Urine Protein 30 H, Urine Glucose (UA) 1000 H, Urine Ketones Negative, Urine Occult Blood Negative, Urine Nitrite Negative, Urine Bilirubin Negative, Urine Urobilinogen Normal, Ur Leukocyte Esterase Negative, Urine RBC 0-5 SEEN, Urine WBC 0-5 SEEN, Ur Squamous Epith Cells 0-5 SEEN, Urine Bacteria 0 SEEN, Urine Mucus 1+ 01/08/25 22:30: D-Dimer Quant (PE/DVT) < 0.27 L, Troponin T Hi Sens 2 Hr 31 H Rhythm Strip Rhythm Strip: Sinus Rhythm Rate: 79 Ectopy: None Imaging Radiology Impression Abdomen/Pelvis CT 01/08/25 21:20 IMPRESSION: 1. There is no acute process in the abdomen or pelvis Reading Location: [facility] Chest X-Ray 01/08/25 21:33 IMPRESSION: 1. Suboptimal exam. Possible mild CHF and possible left lung base airspace disease. Reading Location: [facility] Assessment & Plan Assessment/Plan (1) CHF (congestive heart failure): (2) Acute dyspnea: PLAN: Plan #Hypoxia due to acute exacerbation of HF * Admit to PCU. * Chest x-ray shows some fluid overload. CT chest is pending. * proBNP is elevated at 1300. Troponins x 2 not elevated. * Diurese with IV Lasix 40 mg twice daily. Monitor intake and output. Fluid restriction to 1500 cc daily. * PT OT consult. * CTA chest showed no PE and showed moderate cardiomegaly with mild bilateral pleural effusion, modearte interstitial pulmonary and mild alveolar pulmonary congestion and mildly enlarged mediastinal lymph nodeds, likely reactive. * #Hypertension: On amlodipine and carvedilol as well as hydralazine and olmesartan #Abdominal distension * abdomen significantly distended, no guarding or rebound tenderness. TYmpanitic to percussion. The stafff rom the facility said she believed he had had a bowel movement today * CT abdomen and pelvis showed no acute pathology * will monitor closely for now and if it worsens, consider further workup or general surgery consult * #Seizure disorder: On Keppra and phenobarbital #Type 2 diabetes mellitus: Hold metformin. Insulin sliding scale. Accu-Cheks ACHS. #BPH: On Flomax DVT prophylaxis: lovenox COde status:DNRCCA no intubation per paperwork from facility. Charges/Coding Visit Charges Inpatient E&M: 76490 Init Hosp L3 Procedures Hospitalists Procedures: 58355 Advncd Care Plan 30 Min 01/09/25 0656 <Electronically signed by Katie Rosenbaum MD> Cosigner Signature (if applicable): CC: Dr. Eddi Lynn MD; Dr. Katie Rosenbaum MD~ Signed [facility] Work Phone: Hospital Discharge instructionsAdditional Instructions No findings consistent with hypertensive emergency. Will increase your Norvasc to 10 mg daily from 5 mg. He was given extra dose today. Please continue to take blood pressure log and follow-up with [facility] care doctor [facility] Work Phone: Hospital Discharge instructionsAdditional Instructions Need to have blood pressure checked in 1 to 2 weeks.[facility] Work Phone: Hospital Discharge instructionsAdditional Instructions 1. Patient will need to follow-up for his blood pressure and his sodium with a repeat BMP in 2 weeks. He is to be on sodium tablets for 1 month but if repeat BMP shows elevated sodium may be able to discontinue earlier at the discretion of his primary care physician 2. HCTZ should be added to his allergy list with the severe side effect of hyponatremiaWPremier [facility] Work Phone: Hospital Discharge instructionsAdditional Instructions Start taking Lasix 40 mg daily. Please have a repeat BMP drawn in 5 to 7 days to monitor kidney function. Date of Discharge: 01/12/25[facility] Work Phone: Progress note Author Corey Pelaez [facility] Note Date/Time January 10, 2025 7 :58pm [facility] Medical Records Department [address] [place] [address] Progress Note - Hospitalist 01/09/251920 MR#: [id number] Acct: [id number] Name: NAYLA BENNTET Rep #:[id number] : 1955 69 From: Corey Pelaez DO PCP: Dr. Eddi Lynn MD Status:ADM IN Location: [place] [address] Reason for Visit Chief Complaint: hypertension Subjective Subjective Patient was seen and examined today, he is nonverbal, he does not appear to be in any distress. This afternoon patient was on room air. Echocardiogram showeda normal EF with stage III diastolic dysfunction, there was no significant valvular heart disease. Objective Data Objective Data Vital Signs: Vital Signs Temp Pulse Resp BP Pulse Ox O2 Del Method O2 Flow Rate 98.1 F 70 16 159/70 H 96 Room Air 2 01/09/25 13:00 01/09/25 15:28 01/09/25 13:00 01/09/25 15:28 01/09/25 13:00 01/09/25 17:53 01/09/25 13:00 Oxygen Flow Rate (L/min) 2 Oxygen Delivery Method Room Air Weight: 107 kg Body Mass Index (BMI) 33.8 Intake & Output: Intake and Output for Last 24 Hours 01/07/25 01/08/25 01/09/25 23:59 23:59 23:59 Intake Total 220 / 220 Output Total 450 / 450 Balance -230 / -230 Lab / Micro Data 01/09/25 04:58 01/09/25 04:58 Labs: Laboratory Results - last 24 hr 01/08/25 20:05: WBC 13.1 H, RBC 3.62 L, Hgb 10.9 L, Hct 32.4 L, MCV 89.5, MCH 30.1, MCHC 33.6, RDW Std Deviation 40.0, RDW Coeff of Celi 12.3, Plt Count 321, MPV 9.1, Immature Gran % (Auto) 0.500, Neut % (Auto) 78.1 H, Lymph % (Auto) 10.5L, [place] % (Auto) 10.1 H, Eos % (Auto) 0.5, Baso % (Auto) 0.3, Absolute Neuts (auto) 10.2 H, Absolute Lymphs (auto) 1.38, Nucleated RBC % 0, Sodium 129 L, Potassium 4.4, Chloride 94 L, Carbon Dioxide 22.2, Anion Gap 13, BUN 17, Creatinine 0.85, Estim Creat Clear Calc 103.03, Est GFR (MDRD) Non-Af 93, BUN/Creatinine Ratio 19.4, Glucose 193 H, Calcium 8.8, Total Bilirubin 0.22, AST23, ALT 24, Alkaline Phosphatase 82, Troponin T High Sens 30 H, NT pro BNP II 1535 H, Total Protein 6.5, Albumin 3.9, Globulin 2.6, Albumin/Globulin Ratio 1.5, Lipase 22 01/08/25 20:25: Urine Color Yellow, Urine Clarity Clear, Urine pH 6.0, Ur Specific [place] 1.015, Urine Protein 30 H, Urine Glucose (UA) 1000 H, Urine Ketones Negative, Urine Occult Blood Negative, Urine Nitrite Negative, Urine Bilirubin Negative, Urine Urobilinogen Normal, Ur Leukocyte Esterase Negative, Urine RBC 0-5 SEEN, Urine WBC 0-5 SEEN, Ur Squamous Epith Cells 0-5 SEEN, Urine Bacteria 0 SEEN, Urine Mucus 1+ 01/08/25 22:30: D-Dimer Quant (PE/DVT) < 0.27 L, Troponin T Hi Sens 2 Hr 31 H 01/09/25 00:59: Troponin T Hi Sens 4Hr 37 H 01/09/25 04:58: WBC 12.2 H, RBC 3.31 L, Hgb 10.2 L, Hct 28.9 L, MCV 87.3, MCH 30.8, MCHC 35.3 D, RDW Std Deviation 39.8, RDW Coeff of Celi 12.4, Plt Count 296, MPV 9.4, Immature Gran % (Auto) 0.400, Neut % (Auto) 68.2, Lymph % (Auto) 17.2 L, [place] % (Auto) 13.7 H, Eos % (Auto) 0.3, Baso % (Auto) 0.2, Absolute Neuts (auto) 8.3 H, Absolute Lymphs (auto) 2.10, Nucleated RBC % 0, Sodium 129 L, Potassium 3.9, Chloride 94 L, Carbon Dioxide 24.9, Anion Gap 10, BUN 14, Creatinine 0.92, Estim Creat Clear Calc 91.52, Est GFR (MDRD) Non-Af 90, BUN/Creatinine Ratio 15.1, Glucose 127 H, Calcium 8.6 Radiography Diagnostic Testing: Radiology Impression Abdomen/Pelvis CT 01/08/25 21:20 IMPRESSION: 1. There is no acute process in the abdomen or pelvis Reading Location: [facility] Chest X-Ray 01/08/25 21:33 IMPRESSION: 1. Suboptimal exam. Possible mild CHF and possible left lung base airspace disease. Reading Location: [facility] Chest CTA 01/08/25 22:04 IMPRESSION: No demonstrated pulmonary embolism or arterial dissection. Moderate cardiomegaly. Mild bilateral pleural effusions. Passive atelectatic airspace disease of the lower lobes. Moderate interstitial pulmonary congestion. Mild alveolar pulmonary congestion. Mildly enlarged mediastinal lymph nodes with the largest measuring 1.3 cm, probably reactive. Reading [facility] Echocardiogram 01/09/25 05:55 Interpretation Summary Normal LV size. Left ventricular systolic function is normal. The left ventricular ejection fraction is 65 %. Stage 3 diastolic dysfunction. Moderate concentric left ventricular hypertrophy. Contrast injection was performed. Ordering Physician: Katie Rosenbaum Referring Physician: Eddi Lynn Performed By: Christie Meier RDCS Rhythm Strip Rhythm Strip: Sinus Rhythm Rate: 79 Ectopy: None Physical Exam Const alert and no apparent distress Constitutional Narrative: Patient appears older than his stated age, he is nonverbal and does not follow commands or respond to speech General Appearance: well developed HEENT normocephalic, head/scalp atraumatic and moist oral mucous membranes Eyes PERRL, EOMs intact bilaterally and conjunctivae normal Neck no JVD and thyroid normal General: trachea midline Resp normal respiratory effort, no retractions, no use of accessory muscles and clearto auscultation bilaterally Auscultation: Negative for rales, rhonchi or wheezes Cardio regular rate, regular rhythm, S1 normal heart sound, S2 normal heart sound, no murmurs, no rub and no gallops GI normal to inspection, nondistended, normoactive bowel sounds, soft to palpation,non-tender and non-distended Extremity no clubbing, cyanosis or edema Skin no rashes or lesions noted General Skin Exam: no breakdown Neuro CN's II-XII intact bilaterally Neuro Narrative: Patient is nonverbal and does not respond to commands or conversation Sensorium / Orientation: awake and alert Psych Psych Narrative: Patient is nonverbal and does not respond to commands or conversation Assessment & Plan Assessment/Plan (1) CHF (congestive heart failure): PLAN: Plan 1. Acute diastolic congestive heart failure-patient will remain on IV Lasix andbe reevaluated tomorrow, he lives in a ch[facility]. 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-complicates care, management, recovery, and prognosis #5 seizure disorder-patient is on Keppra and phenobarbital #6 type 2 diabetes-patient's blood sugars are being monitored, sliding scale insulin will be administered as indicated #7 hypothyroidism-patient is on Synthroid #8 BPH-patient is on Flomax Total clinical time spent by myself addressing the patient's medical issues, reviewing all of the data, and collaborating with patient's care team: 35 minutes Charges/Coding Visit Charges Inpatient E&M: 46849 Subs Hosp L2 01/10/251957 <Electronically signed by Corey Pelaez DO> Cosigner Signature (if applicable): CC: ~ Signed [facility] Work Phone: Progress note Author Corey Pelaez [facility] Note Date/Time January 10, 2025 8 :04pm [facility] Medical Records Department [address] [place] [address] Progress Note - Hospitalist 01/10/251999 MR#: [id number] Acct: [id number] Name: NAYLA BENNETT Rep #:[id number] : 1955 69 From: Corey Pelaez DO PCP: Dr. Eddi Lynn MD Status:ADM IN Location: [place] [address] Reason for Visit Chief Complaint: hypertension Subjective Subjective Patient was seen and examined today, he was not able to return to his group hometoday because they would not be able to provide any additional medications untilMonday. Patient does not appear to be in any distress. Objective Data Objective Data Vital Signs: Vital Signs Temp Pulse Resp BP Pulse Ox O2 Del Method O2 Flow Rate 98.1 F 67 16 145/62 H 98 Nasal Cannula 2 01/10/25 15:00 01/10/25 15:02 01/10/25 15:00 01/10/25 15:02 01/10/25 15:00 01/10/25 18:00 01/10/25 18:00 Oxygen Flow Rate (L/min) 2 Oxygen Delivery Method Nasal Cannula Weight: 107 kg Body Mass Index (BMI) 33.8 Intake & Output: Intake and Output for Last 24 Hours 01/08/25 01/09/25 01/10/25 23:59 23:59 23:59 Intake Total 660 / 660 220 / 220 Output Total 450 / 450 0 / 0 Balance 210 / 210 220 / 220 Lab / Micro Data 01/09/25 04:58 01/09/25 04:58 Rhythm Strip Rhythm Strip: Sinus Rhythm Rate: 79 Ectopy: None Physical Exam Narrative alert and no apparent distress Constitutional Narrative: Patient appears older than his stated age, he is nonverbal and does not follow commands or respond to speech General Appearance: well developed HEENT normocephalic, head/scalp atraumatic and moist oral mucous membranes Eyes PERRL, EOMs intact bilaterally and conjunctivae normal Neck no JVD and thyroid normal General: trachea midline Resp normal respiratory effort, no retractions, no use of accessory muscles and clearto auscultation bilaterally Auscultation: Negative for rales, rhonchi or wheezes Cardio regular rate, regular rhythm, S1 normal heart sound, S2 normal heart sound, no murmurs, no rub and no gallops GI normal to inspection, nondistended, normoactive bowel sounds, soft to palpation,non-tender and non-distended Extremity no clubbing, cyanosis or edema Skin no rashes or lesions noted General Skin Exam: no breakdown Neuro CN's II-XII intact bilaterally Neuro Narrative: Patient is nonverbal and does not respond to commands or conversation Sensorium / Orientation: awake and alert Psych Psych Narrative: Patient is nonverbal and does not respond to commands or conversation Assessment & Plan Assessment/Plan (1) CHF (congestive heart failure): PLAN: Plan 1. 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-complicates care,management, recovery, and prognosis #5 seizure disorder-patient is on Keppra and phenobarbital #6 type 2 diabetes-patient's blood sugars are being monitored, sliding scale insulin will be administered as indicated #7 hypothyroidism-patient is on Synthroid #8 BPH-patient is on Flomax #9 hypoxia secondary to #1-patient is on low-flow nasal cannula oxygen at this time, pulse ox will be monitored Total clinical time spent by myself addressing the patient's medical issues, reviewing all of the data, and collaborating with patient's care team: 35 minutes Charges/Coding Visit Charges Inpatient E&M: 43736 Subs Hosp L2 01/10/252003 <Electronically signed by Corey Pelaez DO> Cosigner Signature (if applicable): CC: ~ Signed [facility] Work Phone: Progress note Author Corey Pelaez [facility] Note Date/Time January 11, 2025 5 :43pm [facility] Medical Records Department [address] [place] [address] Progress Note - Hospitalist 01/11/25 174 MR#: [id number] Acct: [id number] Name: TRAVISNAYLAJORI COLORADO Rep #:[id number] : 1955 69 From: Corey Pelaez DO PCP: Dr. Eddi Lynn MD Status:ADM IN Location: [place] [address]- Reason for Visit Chief Complaint: hypertension Subjective Subjective Patient was seen and examined today, he is sitting in a chair and does not look in any distress. Patient remains on room air at this time, I have elected to change his Lasix from IV Lasix to oral Lasix. Objective Data Objective Data Vital Signs: Vital Signs Temp Pulse Resp BP Pulse Ox O2 Del Method O2 Flow Rate 97.8 F 75 17 140/62 H 95 Room Air 2 01/11/25 14:38 01/11/25 14:39 01/11/25 14:38 01/11/25 14:38 01/11/25 14:38 01/11/25 14:38 01/11/25 14:00 Oxygen Flow Rate (L/min) 2 Oxygen Delivery Method Room Air Weight: 107 kg Body Mass Index (BMI) 33.8 Intake & Output: Intake and Output for Last 24 Hours 01/09/25 01/10/25 01/11/25 23:59 23:59 23:59 Intake Total 660 / 660 220 / 220 220 / 220 Output Total 450 / 450 0 / 0 Balance 210 / 210 220 / 220 220 / 220 Lab / Micro Data 01/09/25 04:58 01/09/25 04:58 Radiography Diagnostic Testing: Radiology Impression Chest X-Ray 01/11/25 05:50 IMPRESSION: Diffuse interstitial pulmonary densities consistent with CHF. Obliteration of the costophrenic angles consistent with small pleural effusions. Reading Location: [facility] Rhythm Strip Rhythm Strip: Sinus Rhythm Rate: 79 Ectopy: None Physical Exam Narrative alert and no apparent distress Constitutional Narrative: Patient appears older than his stated age, he is nonverbal and does not follow commands or respond to speech General Appearance: well developed HEENT normocephalic, head/scalp atraumatic and moist oral mucous membranes Eyes PERRL, EOMs intact bilaterally and conjunctivae normal Neck no JVD and thyroid normal General: trachea midline Resp normal respiratory effort, no retractions, no use of accessory muscles and clearto auscultation bilaterally Auscultation: Negative for rales, rhonchi or wheezes Cardio regular rate, regular rhythm, S1 normal heart sound, S2 normal heart sound, no murmurs, no rub and no gallops GI normal to inspection, nondistended, normoactive bowel sounds, soft to palpation,non-tender and non-distended Extremity no clubbing, cyanosis or edema Skin no rashes or lesions noted General Skin Exam: no breakdown Neuro CN's II-XII intact bilaterally Neuro Narrative: Patient is nonverbal and does not respond to commands or conversation Sensorium / Orientation: awake and alert Psych Psych Narrative: Patient is nonverbal and does not respond to commands or conversation Assessment & Plan Assessment/Plan (1) CHF (congestive heart failure): PLAN: Plan 1. 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-complicates care,management, recovery, and prognosis #5 seizure disorder-patient is on Keppra and phenobarbital #6 type 2 diabetes-patient's blood sugars are being monitored, sliding scale insulin will be administered as indicated #7 hypothyroidism-patient is on Synthroid #8 BPH-patient is on Flomax #9 hypoxia secondary to #9-[id number] is currently on room air Total clinical time spent by myself addressing the patient's medical issues, reviewing all of the data, and collaborating with patient's care team: 35 minutes Charges/Coding Visit Charges Inpatient E&M: 06155 Subs Hosp L2 01/11/25 1748 <Electronically signed by Corey Pelaez DO> Cosigner Signature (if applicable): CC: ~ Signed [facility] Work Phone: Reason for referral (narrative)No reason for referral information availableWPremier Health [facility] Work Phone: Advance Directives Advance Directive Response Recorded Date/ Time Living Will No July 16, 2016 8:19am Power of Design Engineer No July 16 8:19am Advance Directive Response Recorded Date/ Time Living Will No July 27, 2021 1: 24pm Power of Design Engineer No July 27, 2021 1:24pm Advance Directive Response Recorded Date/ Time Living Will No July 27, 2021 12 :24pm Power of Design Engineer No July 27, 2021 12:24pm Advance Directive Response Recorded Date/ Time Name of Medical Power of Design Engineer chris rock November 04, 2022 7:33am Living Will No November 04 7:33am Power of Design Engineer Yes November 04 7:33am Advance Directive Response Recorded Date/ Time Name of Medical Power of Design Engineer chris rock November 04, 2022 10:39am Living Will No November 04 10:39am Power of Design Engineer Yes November 04 10:39am Advance Directive Response Recorded Date/ Time Living Will No November 04 9:39am Power of Design Engineer Yes November 04 9:39am Advance Directive Response Recorded Date/ Time Living Will No November 04 10:39am Power of Design Engineer Yes November 04 10:39am Advance Directive Response Recorded Date/ Time Living Will No November 04 10:39am Power of Design Engineer Yes November 04 10:39am Living Will No May 22 8:38pm Power of Design Engineer No May 22, 2024 8:38pm Advance Directive Response Recorded Date/ Time Living Will No November 04 10:39am Do you have a Healthcare Power of Design Engineer? Yes November 04, 2022 10:39am Living Will No May 22 8:38pm Do you have a Healthcare Power of Design Engineer? No May 22, 2024 8:38pm Advance Directive Response Recorded Date/ Time Do you have a Healthcare Power of Design Engineer? Yes December 22, 2024 6:57pm Do you have a Healthcare Power of Design Engineer? No December 19, 2024 12:13pm Advance Directive Response Recorded Date/ Time Do you have a Healthcare Power of Design Engineer? Yes December 22, 2024 6:57pm Do you have a Healthcare Power of Design Engineer? No December 30, 2024 3:52pm Do you have a Healthcare Power of Design Engineer? No December 19, 2024 12:13pm Advance Directive Response Recorded Date/ Time Do you have a Healthcare Pow er of Design Engineer? Yes December 22, 2024 6:57pm Do you have a Healthcare Pow er of Design Engineer? No December 30, 2024 3:52pm Do you have a Healthcare Pow er of Design Engineer? No December 19, 2024 12:13pm Do you have a Healthcare Pow er of Design Engineer? Yes January 09, 2025 1:31am Name of Medical Power of Design Engineer seth ryan January 08, 2025 6:42pm Advance Directive Response Recorded Date/ Time Do you have a Healthcare Pow er of Design Engineer? Yes December 22, 2024 5:57pm Do you have a Healthcare Pow er of Design Engineer? No December 30, 2024 2:52pm Do you have a Healthcare Pow er of Design Engineer? No December 19, 2024 11:13am Do you have a Healthcare Pow er of Design Engineer? Yes January 09, 2025 12:31am Name of Medical Power of Design Engineer seth ryan January 08, 2025 5:42pm Chief Complaint and Reason for Visit Chief [...] 26 10:31am Vitamin D insufficiency November 26 025 10:31am Chief Complaint Admit Date LAB AND URINE October 15, 2024 7:41 am 6 M FU November 26, 2024 10:31am hypertension December 19, 2024 12:02pm hypertension December 22, 2024 6:48pm Reason for Visit Admit Date Epilepsy, unspecified, not i ntractable, without status epilepticus November 26, 2024 10:31am HTN (hypertension) November 26, 2024 10:31am Vitamin B12 deficiency November 26 10:31am Vitamin D insufficiency November 26 025 10:31am Chief Complaint Admit Date LAB AND URINE October 15, 2024 7:41 am 6 M FU November 26, 2024 10:31am hypertension December 19, 2024 12:02pm hypertension December 22, 2024 6:48pm SEVERE ACUTE HYPONATREMIA 2/2 ADR TO HCT Z December 30, 2024 9:21pm Reason for Visit Admit Date Epilepsy, unspecified, not i ntractable, without status epilepticus November 26, 2024 10:31am HTN (hypertension) November 26, 2024 10:31am Vitamin B12 deficiency November 26 10:31am Vitamin D insufficiency November 26 025 10:31am Acute hyponatremia December 30, 2024 9: 21pm Adverse drug reaction December 30, 2024 9:21pm Adverse effect of metformin December 30, 2024 9:21pm BPH with urinary obstruction December 9:21pm Fall December 30, 2024 9: 21pm Frequent falls December 30, 2024 9: 21pm Generalized weakness December 30, 2024 9 :21pm History of seizure December 30, 2024 9: 21pm Hyponatremia December 30, 2024 9: 21pm Lactic acidosis December 30, 2024 9: 21pm Leukocytosis December 30, 2024 9: 21pm Obesity (BMI 30.0-34.9) December 30 9:21pm Schizophrenia December 30, 2024 9: 21pm Seizure disorder December 30, 2024 9: 21pm Type 2 diabetes mellitus December 30 9:21pm Uncontrolled hypertension December 30 025 9:21pm Chief Complaint Admit Date LAB AND URINE October 15, 2024 7:41 am 6 M FU November 26, 2024 10:31am hypertension December 19, 2024 12:02pm hypertension December 22, 2024 6:48pm SEVERE ACUTE HYPONATREMIA 2/2 ADR TO HCT Z December 30, 2024 9:21pm SEVERE ACUTE HYPONATREMIA 2/2 ADR TO HCT Z December 31, 2024 7:19am SEVERE ACUTE HYPONATREMIA 2/2 ADR TO HCT Z January 01, 2025 3:32pm SEVERE ACUTE HYPONATREMIA 2/2 ADR TO HCT Z January 02, 2025 1:18pm ACUTE CHF EXACERBATION January 09 12:01am ACUTE CHF EXACERBATION January 09 7:21pm ACUTE CHF EXACERBATION January 10 8:00pm ACUTE CHF EXACERBATION January 11 5:41pm ACUTE CHF EXACERBATION January 12 12:34pm Reason for Visit Admit Date Epilepsy, unspecified, not i ntractable, without status epilepticus November 26, 2024 10:31am HTN (hypertension) November 26, 2024 10:31am Vitamin B12 deficiency November 26 10:31am Vitamin D insufficiency November 26 10:31am Acute hyponatremia December 30, 2024 9: 21pm Uncontrolled hypertension December 30 9:21pm Adverse drug reaction December 30, 2024 9:21pm Adverse effect of metformin December 30, 2024 9:21pm Frequent falls December 30, 2024 9: 21pm Generalized weakness December 30, 2024 9 :21pm Lactic acidosis December 30, 2024 9: 21pm Leukocytosis December 30, 2024 9: 21pm BPH with urinary obstruction December 9:21pm History of seizure December 30, 2024 9: 21pm Obesity (BMI 30.0-34.9) December 30 9:21pm Schizophrenia December 30, 2024 9: 21pm Seizure disorder December 30, 2024 9: 21pm Type 2 diabetes mellitus December 30 9:21pm Fall December 30, 2024 9: 21pm Hyponatremia December 30, 2024 9: 21pm Acute dyspnea January 09, 2025 1 2:01am Hypoxia January 09, 2025 1 2:01am CHF (congestive heart failure) December 242024 12:01am History of diabetes mellitus December 12:01am History of hypertension January 09 12:01am Summary Purpose Family History No Family History Records Found Additional Source Comments Goals (unrecognized section and content) Type Treatment Intervention Code Status: Full Code - Unverified Care Teams (unrecognized sec tion and content) Team Status: Active Member Role Status Dates Dr. Dean Felipe MD Family Provider Active Dr. Dean Felipe MD Primary Care Provider Active Team Status: Inactive Member Role Status Dates Dr. Dean Felipe MD Primary Care Provider Active Dr. Vini Feliciano MD Attending Provider, Referring Provider Active Team [...] 2024 Team Status: Inactive Member Role/Relationship Status Lupillo Lynn MD Primary Care Provider Active St art: October 15, 2024 End: October 15, 2024 Aydee Willams ART OBJECTS SALESPERSON, ART OBJECTS SALESPERSON-C Attending Provider Active Start: October 15, 2024 End: October 15, 2024 Aydee Willams ART OBJECTS SALESPERSON, ART OBJECTS SALESPERSON-C Referring Provider Active Start: October 15, 2024 End: October 15, 2024 Team Status: Inactive Member Role/Relationship Status Lupillo Lynn MD Primary Care Provider Active St art: October 15, 2024 End: October 15, 2024 Aydee Willams ART OBJECTS SALESPERSON, ART OBJECTS SALESPERSON-C Attending Provider Active Start: October 15, 2024 End: October 15, 2024 Aydee Willams ART OBJECTS SALESPERSON, ART OBJECTS SALESPERSON-C Referring Provider Active Start: October 15, 2024 [...] November 26, 2024 End: November 26, 2024 Team Status: Active Member Role/Relationship Status Lupillo Lynn MD Primary care physician Active Team Status: Inactive Member Role/Relationship Status Lupillo Lynn MD Primary care physician Active S tart: October 15, 2024 End: October 15, 2024 Aydee Willams ART OBJECTS SALESPERSON, ART OBJECTS SALESPERSON-C Attending physician Active Start: October 15, 2024 End: October 15, 2024 Aydee Willams ART OBJECTS SALESPERSON, ART OBJECTS SALESPERSON-C Referring Provider Active Start: October 15, 2024 End: October 15, 2024 Team Status: Inactive Member Role/Relationship Status Dates Dr. Dean Felipe MD Referring Provider Active Start: November 26, 2024 End: November 26, 2024 Dr. Vini Feliciano MD Attending physician Active Start: November 26, 2024 End: November 26, 2024 Eddi Lynn MD Primary care physician Active S tart: November 26, 2024 End: November 26, 2024 Team Status: Inactive Member Role/Relationship Status Lupillo Lynn MD Primary care physician Active S tart: December 19, 2024 End: December 19, 2024 Dr. Lory Wolff DO Attending physician Active Start: December 19, 2024 End: December 19, 2024 Dr. Lory Wolff DO Emergency Departm ent Physician Active Start: December 19, 2024 End: December 19, 2024 Team Status: Inactive Member Role/Relationship Status Lupillo Lynn MD Primary care physician Active S tart: December 22, 2024 End: December 22, 2024 Dr. Chet Grover MD Emergency Department Physician Active Start: December 22, 2024 End: December 22, 2024 Team Status: Inactive Member Role/Relationship Status Lupillo Lynn MD Primary care physician Active S tart: December 22, 2024 End: December 22, 2024 Dr. Chet Grover MD Attending physician Active St art: December 22, 2024 End: December 22, 2024 Dr. Chet Grover MD Emergency Department Physician Active Start: December 22, 2024 End: December 22, 2024 Team Status: Active Member Role/Relationship Status Lupillo Lynn MD Primary care physician Active S tart: December 25, 2024 Eddi Lynn MD Attending physician Active Star t: December 25, 2024 Eddi Lynn MD Referring Provider Active Start : December 25, 2024 Team Status: Active Member Role/Relationship Status Lupillo Lynn MD Primary care physician Active S tart: December 30, 2024 Dr. Nestor Stauffer , DO Emergency Departme nt Physician Active Start: December 30, 2024 Dr. Jorge Herrera , DO Admitting physician Active Start: December 30, 2024 Dr. Jorge Herrera , DO Attending physician Active Start: December 30, 2024 Team Status: Inactive Member Role/Relationship Status Lupillo Lynn MD Primary care physician Active S tart: December 25, 2024 End: December 25, 2024 Eddi Lynn MD Attending physician Active Star t: December 25, 2024 End: December 25, 2024 Eddi Lynn MD Referring Provider Active Start : December 25, 2024 End: December 25, 2024 Team Status: Inactive Member Role/Relationship Status Lupillo Lynn MD Primary care physician Active S tart: December 30, 2024 End: January 02, 2025 Dr. Nestor Stauffer , DO Emergency Departme nt Physician Active Start: December 30, 2024 End: January 02, 2025 Dr. Jorge Herrera , DO Admitting physician Active Start: December 30, 2024 End: January 02, 2025 Dr. Jorge Herrera , DO Nurse Practitioner Active Start: December 30, 2024 End: January 02, 2025 Dr. Alice Mckeon , DO Attending physician Active Start: December 30, 2024 End: January 02, 2025 Team Status: Active Member Role/Relationship Status Lupillo Lynn MD Primary care physician Active S tart: December 31, 2024 Dr. Nestor Stauffer , DO Emergency Departme nt Physician Active Start: December 31, 2024 Dr. Jorge Herrera , DO Admitting physician Active Start: December 31, 2024 Dr. Jorge Herrera , DO Nurse Practitioner Active Start: December 31, 2024 Dr. Alice Mckeon , DO Attending physician Active Start: December 31, 2024 Dr. Alice Mckeon , DO Nurse Practitioner Active S tart: December 31, 2024 Team Status: Active Member Role/Relationship Status Dates Eddi Lynn MD Primary care physician Active S tart: January 01, 2025 Dr. Nestor Stauffer , DO Emergency Departme nt Physician Active Start: January 01, 2025 Dr. Jorge Herrera , DO Admitting physician Active Start: January 01, 2025 Dr. Jorge Herrera , DO Nurse Practitioner Active Start: January 01, 2025 Dr. Alice Mckeon , DO Attending physician Active Start: January 01, 2025 Dr. Alice Mckeon , DO Nurse Practitioner Active S tart: January 01, 2025 Team Status: Active Member Role/Relationship Status Dates Eddi Lynn MD Primary care physician Active S tart: January 02, 2025 Dr. Nestor Stauffer , DO Emergency Departme nt Physician Active Start: January 02, 2025 Dr. Jorge Herrera , DO Admitting physician Active Start: January 02, 2025 Dr. Jorge Herrera , DO Nurse Practitioner Active Start: January 02, 2025 Dr. Alice Mckeon , Attending physician Active Start: January 02, 2025 Dr. Alice Mckeon , DO Nurse Practitioner Active S tart: January 02, 2025 Team Status: Inactive Member Role/Relationship Status Dates Eddi Lynn MD Primary care physician Active S tart: January 09, 2025 End: January 12, 2025 Dr. Aguilar [facility] Active Start: January 09, 2025 End: January 12, 2025 Dr. Katie Rosenbaum MD Admitting physician Active Start: January 09, 2025 End: January 12, 2025 Dr. Katie Rosenbaum MD Nurse Practitioner Active Start: January 09, 2025 End: January 12, 2025 Dr. Kal Laguna , Attending physician Active Start: January 09, 2025 End: January 12, 2025 Dr. Corey Pelaez DO Nurse Practitioner Active Start: January 09, 2025 End: January 12, 2025 Team Status: Active Member Role/Relationship Status Dates Eddi Lynn MD Primary care physician Active S tart: January 09, 2025 Dr. Sawyer Buck MD Attending physician Active Start: January 09, 2025 Team Status: Active Member Role/Relationship Status Dates Eddi Lynn MD Primary care physician Active S tart: January 09, 2025 Dr. Aguilar Matthews MD Emergency Departmen t Physician Active Start: January 09, 2025 Dr. Katie Rosenbaum MD Admitting physician Active Start: January 09, 2025 Dr. Katie Rosenbaum MD Nurse Practitioner Active Start: January 09, 2025 Dr. Corey Pelaez DO Attending physician Active Start: January 09, 2025 Dr. Corey Pelaez DO Nurse Practitioner Active Start: January 09, 2025 Team Status: Active Member Role/Relationship Status Dates Eddi Lynn MD Primary care physician Active S tart: January 10, 2025 Dr. Aguilar Matthews MD Emergency Departmen t Physician Active Start: January 10, 2025 Dr. Katie Rosenbaum MD Admitting physician Active Start: January 10, 2025 Dr. Katie Rosenbaum MD Nurse Practitioner Active Start: January 10, 2025 Dr. Corey Pelaez DO Attending physician Active Start: January 10, 2025 Dr. Corey Pelaez DO Nurse Practitioner Active Start: January 10, 2025 Team Status: Active Member Role/Relationship Status Lupillo Lynn MD Primary care physician Active S tart: January 11, 2025 Dr. Aguilar Matthews MD Emergency Departmen t Physician Active Start: January 11, 2025 Dr. Katie Rosenbaum MD Admitting physician Active Start: January 11, 2025 Dr. Katie Rosenbaum MD Nurse Practitioner Active Start: January 11, 2025 Dr. Corey Pelaez DO Attending physician Active Start: January 11, 2025 Dr. Corey Pelaez DO Nurse Practitioner Active Start: January 11, 2025 Team Status: Active Member Role/Relationship Status Dates Eddi Lynn MD Primary care physician Active S tart: January 12, 2025 Dr. Aguilar Matthews MD Emergency Departmen t Physician Active Start: January 12, 2025 Dr. Katie Rosenbaum MD Admitting physician Active Start: January 12, 2025 Dr. Katie Rosenbaum MD Nurse Practitioner Active Start: January 12, 2025 Dr. Kal Laguna , DO Attending physician Active Start: January 12, 2025 Dr. Kal Laguna , DO Nurse Practitioner Active Start: January 12, 2025 Dr. Corey Pelaez , Nurse Practitioner Active Start: January 12, 2025 (unrecognized sect ion and content) No Status Records Found INFORMATION SOURCE (unrecogn ized section and content) DATE CREATED AUTHOR 01/27/2025 [facility] FOR RECORDS PERTAINING TO PATIENTS WHO ARE [...] BE BASED ON THE PRIMARY CLINICAL RECORDS. [employer] provides no warranty or guarantee of the accuracy or completeness of information in this document.
[2025-02-18 15:12] LABS: Pro- Brain NATRIURETIC PEPTIDE 252 pg/mL (<=900)
== END | disposition home or self-care (01) ==
LOC: MTLAB 12:58
PROVIDERS: PCP Family Medicine; Referring Provider Family Medicine; Visit Provider Family Medicine
DX: E87.1 Hypo-osmolality and hyponatremia (principal); I50.9 Heart failure, unspecified; M79.89 Other specified soft tissue disorders; R30.0 Dysuria
CPT/HCPCS: 36415; 80053; 81001; 83880; 84443; 85025; 87086

== ENCOUNTER → 2025-02-24 | Outpatient (CLI) | payer MEDICARE, MEDICAID, SELFPAY ==
[2025-02-24 18:12] LABS: Anion Gap 14 (5-15); BUN 25 mg/dL (4-19); BUN/Creat Ratio 23.5 RATIO (10-20); Calcium,Total 9.4 mg/dL (7.6-11.0); Carbon Dioxide 26.6 mmol/L (21.0-32.0); Chloride 101 mmol/L (98-108); Glucose 181 mg/dL (70-99); Potassium 3.8 mmol/L (3.3-5.1)
== END | disposition home or self-care (01) ==
LOC: MTLAB 14:05
PROVIDERS: PCP Family Medicine; Referring Provider Family Medicine; Visit Provider Family Medicine
DX: E87.1 Hypo-osmolality and hyponatremia (principal)
CPT/HCPCS: 36415; 80048

== ENCOUNTER → 2025-03-23 | Outpatient (CLI) | payer MEDICARE, MEDICAID, SELFPAY ==
--- OUTSIDE RECORDS SUMMARY | 2025-03-23 07:26 | XMS RPT_ITS | CCD ---
Author Organization [facility] CliniSyid Care Team Providers Care Engagement Lead Name Role Phone Dr. Dean Felipe Chi Primary Care Provider Matteo, Dr. Dean Mathis Referring Provider Tevin CORPORATE RISK ANALYST, TANESHA Moe Attending Provider Matteo, Dr. Dean Mathis Primary Care Provider [phone] Jefferson Lazar Emergency Provider [phone] Alice Mckeon Attending Provider Dr. Alice Mckeon Admit Provider Dr. Alice Mckeon Other Provider Matteo, Dr. Dean Mathis Referring Provider Dr. Vini Feliciano Attending Provider Dr. Dean Felipe Chi Primary Care Provider [phone] Matteo, Dr. Dean Mathis Referring Provider Dr. Vini Feliciano Attending Provider Dr. Dean Felipe MD, Chi Primary Care Provider [phone] Dr. Chet Grover MD Attending Provider Dr. [...] Provider Shane ROMO, Eddi Referring Provider Imer CORPORATE RISK ANALYST-C, Aydee Attending Provider Imer CORPORATE RISK ANALYST-C, Aydee Referring Provider Shane ROMO, Eddi Primary Care Provider Matteo ROMO, Dr. Dean Mathis Referring Provider Jodie ROMO, Dr. Martini Attending Provider Shane ROMO, Eddi Primary Care Physician Imer CORPORATE RISK ANALYST-C, Aydee Attending Physician Jodie ROMO, Dr. Martini [...] Shane ROMO, Eddi Primary Care Physician Imer CORPORATE RISK ANALYST-C, Aydee Attending Physician Imer CORPORATE RISK ANALYST-C, Aydee Referring Provider Matteo ROMO, Dr. Dean [...] ROMO, Dr. Katie [place] Admitting Physician [phone] Robi ROMO, Dr. Katie [place] Nurse Practitioner [...] Unavailable Shane, Chalon Primary Care Unavailable Imer CORPORATE RISK ANALYSTAydee Attending Unavailable Imer CORPORATE RISK ANALYST, Aydee Referring Unavailable Shane, Chalon Primary Care Unavailable Shane, Chalon Primary Care Unavailable Lory Wolff Attending Unavailable Eddi Lynn MD Primary Care Physician Imer CORPORATE RISK ANALYST-CAydee Attending Physician Imer CORPORATE RISK ANALYST-CAydee Referring Provider Dr. Dean Felipe MD, Chi Referring Provider Dr. Vini Feliciano MD Attending Physician Dr. Lory Wolff DO Attending Physician Dr. Lory Wolff DO Emergency Department Physi gini Dr. Chet Grover MD Attending Physician Dr. Chet Grover MD Emergency Department Physician Eddi Lynn MD Attending Physician Eddi Lynn MD Referring Provider Dr. Nestor Stauffer DO Emergency Department Physic po Dr. Jorge Herrera DO Admitting Physician Ynes vailable Dr. Jorge Herrera DO Nurse Practitioner Unav ailable Mike DISLA, Dr. Jenkins Attending Physician Mike DISLA, Dr. Jenkins Nurse Practitioner Byron ROMO, Dr. Sheikh Emergency Department Physici an Robi ROMO, Dr. Katie [place] Admitting Physician [phone] Robi ROMO, Dr. Katie [place] Nurse Practitioner Dr. Kal Laguna DO Attending Physician Latanya DISLA, Dr. Nicole Nurse Practitioner Cielo ROMO, Dr. Jacques Attending Physician Latanya DISLA, Dr. Nicole Attending Physician Jase DISLA, Dr. Bowden Nurse Practitioner Allergies Allergy Classification Reported Allergen(s) Allergy Type Date of Onset Reaction(s) Facility (4 sources) hydroCHLOROthiazide Drug Allergy 12-31-19 25 Hyponatremia [facility] (4 sources) metFORMIN Drug Allergy 12-31-19 25 Lactic Acidosis [facility] (1 source) hydroCHLOROthiazide Drug Allergy 12-31-19 25 [facility] Repository (1 source) metFORMIN Drug Allergy 12-31-19 25 [facility] Repository Medications Current Medications Medication Drug Class(es) [...] Start: 12-22-2024 take 1 capsule by mo [facility] once daily Beta Carotene 30 mg [...] 02, 2019 12:00am November 26, 2024 10:42am Curlew 2-Ebd-Ucp-Fish Oil (20 sources) Start: 07-16-2016 Curlew 3-Dha-Ep a-Fish Oil Active 1 EACH PO TWICE A DAY July 16, 2016 8:26am Start: 07-16-2016 End: 01-08-2025 Start: 07-16-2016 take 1 capsule by [facility] twice daily Curlew 9-Cfi-Llw-Fish Oil 1 EACH capsule Active 1 NMA PO TWICE A DAY July 16, 2016 12:00am Complies with drug therapy Start: 07-16-2016 take 1 capsule by [facility] twice daily Curlew 3-Ujl-Rrf-Fish Oil 1 EACH capsule Active 1 NMA PO TWICE A DAY July 16, 2016 12:00am Start: 07-16-2016 Curlew 3-Dha-Ep a-Fish Oil Active 1 EACH PO TWICE A DAY July 15, 2016 11:00pm Start: 07-16-2016 Curlew 3-Dha-Ep a-Fish Oil Active 1 EACH PO [...] docusate sodium 50 mg / amy osides, longterm 8.6 mg oral tablet (20 sources) Start: [...] te Episodic/Chronic Other aftercare (1 source) 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 Kal Laguna Referrals / Follow Up: Eddi Lynn MD [Primary Care Provider, Family Practice] Disposition Disposition (needs filled in before D/C Order can be placed): NonSkilled NH/Intermed Care 01/12/25 1317 Kal Laguna DO CC: Dr. Eddi Lynn MD; Dr. Corey Pelaez DO; Dr. Katie Rosenbaum MD Signed Normal [facility] Chest 1 View (Portable)on Chest 1 View (Portable) [facility] Imaging Services [address] [place] [address] Chest 1 View (Portable) MR#: [id number] Acct: [id number] Name: NAYLA BENNETT Rep #: [id number] : 1955 M 69 From: Sonam Matson MD PCP: Dr. Eddi Lynn MD Status: ADM IN Study: Chest 1 View (Portable) Date of Exam: 01/11/25 Exam# [id number] Ordering Dr: Corey Pelaez DO PROCEDURE: CHEST [...] consistent with small pleural effusions. Reading Location: [facility] CC: Dr. Eddi Lynn MD; Dr. Corey Pelaez DO Tire Spotter: Signed Normal [facility] Absolute lymphocyte countOrd ered By: Katie Rosenbaum on 01-09-2025 Lymphocytes Auto (Unsp spec) [#/Vol] 2.10 10*3/uL 0.83-4.51 [facility] Anion gap in Serum or Plasma Ordered By: Katie Rosenbaum on 01-09-2025 Anion gap [Moles/Vol] 10 mmol/L 5-15 [facility] Automated lymphocyte count a s percentage of total leukocytesOrdered By: Katie Rosenbaum on 01-09-2025 Lymphocytes/100 WBC Auto (Unsp spec) 17.2 % Low 19-41 [facility] BUN/creatinine ratioOrdered By: Katie Shingarret on 01-09-2025 Urea nitrogen/Creatinine [Mass ratio] 15.1 mg/mg - [facility] Basic Metabolic Profile (BMP )on 01-09-2025 BUN/CRE 15.1 RATIO Normal 01-12 [facility] Comment on above: Performed By: #### L 501.2300, L500.4100, L100.0100 #### [facility] Laboratory [address] [place], [address] Calcium [Mass/Vol] 8.6 mg/dL Normal 7.6-11.0 [facility] Comment on above: Performed By: #### L 501.2300, L500.4100, L100.0100 #### [facility] Laboratory [address] [place], [address] Chloride [Moles/Vol] 94 mmol/L Low 98-108 [facility] Comment on above: Performed By: #### L 501.2300, L500.4100, L100.0100 #### [facility] Laboratory [address] [place], [address] CO2 [Moles/Vol] 24.9 mmol/L Normal 21.0-32.0 [facility] Comment on above: Performed By: #### L 501.2300, L500.4100, L100.0100 #### [facility] Laboratory [address] [place], [address] Creatinine [Mass/Vol] 0.92 mg/dL Normal 0.70-1.20 [facility] Comment on above: Performed By: #### L 501.2300, L500.4100, L100.0100 #### [facility] Laboratory [address] [place], [address] ECRCL 91.52 ml/min Normal 50-250 [facility] Comment on above: Performed By: #### L 501.2300, L500.4100, L100.0100 #### [facility] Laboratory [address] [place], [address] GAP 10 Normal 5-15 [facility] Comment on above: Performed By: #### L 501.2300, L500.4100, L100.0100 #### [facility] Laboratory [address] [place], [address] GFR/1.73 sq M.predicted among non-blacks MDRD (S/P/Bld) [Vol rate/Area] 90 mL/min/{1.73_m2} Normal >60 [facility] Comment on above: Result Comment: mL/m in/1.73m2 CKD-EPI Creatinine Equation (2020) Performed By: #### L 501.2300, L500.4100, L100.0100 #### [facility] Laboratory [address] [place], [address] Glucose [Mass/Vol] 127 mg/dL High 70-99 [facility] Comment on above: Performed By: #### L 501.2300, L500.4100, L100.0100 #### [facility] Laboratory [address] [place], [address] Potassium [Moles/Vol] 3.9 mmol/L Normal 3.3-5.1 [facility] Comment on above: Performed By: #### L 501.2300, L500.4100, L100.0100 #### [facility] Laboratory [address] [place], [address] Sodium [Moles/Vol] 129 mmol/L Low 133-145 [facility] Comment on above: Performed By: #### L 501.2300, L500.4100, L100.0100 #### [facility] Laboratory [address] [place], [address] Urea nitrogen [Mass/Vol] 14 mg/dL Normal 4-19 [facility] Comment on above: Performed By: #### L 501.2300, L500.4100, L100.0100 #### [facility] Laboratory [address] [place], [address] Basophil percentageOrdered B y: Katie Rosenbaum on 01-09-2025 Basophils/100 WBC (Bld) 0.2 % 0-1 [facility] CBC W/Diff, Automatedon 12-24 Absolute Lymph 2.10 X10 3/uL Normal 0.83-4.51 [facility] Comment on above: Performed By: #### L 501.2300, L500.4100, L100.0100 #### [facility] Laboratory [address] [place], [address] Absolute Neut 8.3 X10 3/uL High 2.0-7.7 [facility] Comment on above: Performed By: #### L 501.2300, L500.4100, L100.0100 #### [facility] Laboratory [address] [place], [address] Basophils/100 WBC (Bld) 0.2 % Normal 0-1 [facility] Comment on above: Performed By: #### L 501.2300, L500.4100, L100.0100 #### [facility] Laboratory [address] [place], [address] Eosinophils/100 WBC (Bld) 0.3 % Normal 0-5 [facility] Comment on above: Performed By: #### L 501.2300, L500.4100, L100.0100 #### [facility] Laboratory [address] [place], [address] Erythrocyte distribution width (RBC) [Ratio] 12.4 % Normal 11.6-14.6 [facility] Comment on above: Performed By: #### L 501.2300, L500.4100, L100.0100 #### [facility] Laboratory [address] [place], [address] Hematocrit (Bld) [Volume fraction] 28.9 % Low 40-54 [facility] Comment on above: Performed By: #### L 501.2300, L500.4100, L100.0100 #### [facility] Laboratory [address] [place], [address] Hemoglobin (Bld) [Mass/Vol] 10.2 g/dL Low 13.0-16.5 [facility] Comment on above: Performed By: #### L 501.2300, L500.4100, L100.0100 #### [facility] Laboratory [address] [place], [address] IG% 0.400 Normal 0.0-0.9 [facility] Comment on above: Result Comment: IG% - Immature Granulocytes (promyelocytes, myelocytes and metamyelocytes) > 1% indicates that a LEFT SHIFT is Present. Performed By: #### L 501.2300, L500.4100, L100.0100 #### [facility] Laboratory [address] [place], [address] Lymphocytes/100 WBC (Bld) 17.2 % Low 19-41 [facility] Comment on above: Performed By: #### L 501.2300, L500.4100, L100.0100 #### [facility] Laboratory [address] [place], [address] MCH (RBC) [Entitic mass] 30.8 pg Normal 27.0-32.0 [facility] Comment on above: Performed By: #### L 501.2300, L500.4100, L100.0100 #### [facility] Laboratory [address] [place], [address] MCHC (RBC) [Mass/Vol] 35.3 g/dL Normal 32-36 [facility] Comment on above: Performed By: #### L 501.2300, L500.4100, L100.0100 #### [facility] Laboratory [address] [place], [address] MCV (RBC) [Entitic vol] 87.3 fL Normal 80-94 [facility] Comment on above: Performed By: #### L 501.2300, L500.4100, L100.0100 #### [facility] Laboratory [address] [place], [address] Monocytes/100 WBC (Bld) 13.7 % High 0-10 [facility] Comment on above: Performed By: #### L 501.2300, L500.4100, L100.0100 #### [facility] Laboratory [address] [place], [address] Neutrophils/100 WBC (Bld) 68.2 % Normal 47-70 [facility] Comment on above: Performed By: #### L 501.2300, L500.4100, L100.0100 #### [facility] Laboratory [address] [place], [address] Nucleated RBC (Bld) [#/Vol] 0 10*3/uL Normal 0-5 [facility] Comment on above: Performed By: #### L 501.2300, L500.4100, L100.0100 #### [facility] Laboratory [address] [place], [address] Platelet mean volume (Bld) [Entitic vol] 9.4 fL Normal 6.2-12.0 [facility] Comment on above: Performed By: #### L 501.2300, L500.4100, L100.0100 #### [facility] Laboratory [address] [place], [address] Platelets (Bld) [#/Vol] 296 10*3/uL Normal 150-450 [facility] Comment on above: Performed By: #### L 501.2300, L500.4100, L100.0100 #### [facility] Laboratory [address] [place], [address] RBC (Bld) [#/Vol] 3.31 10*6/uL Low 4.6-6.2 [facility] Comment on above: Performed By: #### L 501.2300, L500.4100, L100.0100 #### [facility] Laboratory [address] [place], [address] RDW SD 39.8 fl Normal 35.1-43.9 [facility] Comment on above: Performed By: #### L 501.2300, L500.4100, L100.0100 #### [facility] Laboratory [address] [place], [address] WBC (Bld) [#/Vol] 12.2 10*3/uL High 4.4-11.0 [facility] Comment on above: Performed By: #### L 501.2300, L500.4100, L100.0100 #### [facility] Laboratory [address] [place], [address] Carbon dioxide, total [Moles /volume] in Central venous bloodOrdered By: Katie Rosenbaum on 01-09-2025 CO2 [Moles/Vol] 24.9 mmol/L 21.0-32.0 [facility] Chloride assayOrdered By: Linda Rosenbaum on 01-09-2025 Chloride [Moles/Vol] 94 mmol/L Low 98-108 [facility] Echo Complete W/ Contraston 01-09-2025 Echo Complete W/ Contrast [facility] Cardiovascular Services [address] [place] [address] Echo Complete W/ Contrast 01/09/25 1014 MR#: [id number] Acct: [id number] Name: NAYLA BENNETT Rep #: [id number] : 1955 69 From: Sawyer Buck MD Attending Dr: Dr. Corey Pelaez, DO Status: A DM IN Ordering Dr: Katie Rosenbaum MD Date: 01/09/25 Location: [facility] Sex: M C Admitted: 01/09/25 Reason For [...] MD Date Dictated: 01/09/251013 Date Transcribed: 01/09/251717 Tire Spotter: Signed Normal [facility] Echocardiogram study reportO rdered By: Sawyer Buck on 01-09-2025 Study report [facility] Work Phone: [phone] Study report [facility] Work Phone: [phone] Electrocardiogram reportOrde red By: Sawyer Buck on 01-09-2025 EKG study [facility] Work Phone: [phone] EKG study [facility] Work Phone: [phone] Eosinophil percentageOrdered By: Katie Rosenbaum on 01-09-2025 Eosinophils/100 WBC (Bld) 0.3 % 0-5 [facility] Erythrocyte distribution wid th ratioOrdered By: Katie Rosenbaum on 01-09-2025 Erythrocyte distribution width (RBC) [Ratio] 12.4 % 11.6-14.6 [facility] Erythrocyte distribution wid th standard deviationOrdered By: Katie Rosenbaum on 01-09-2025 Erythrocyte distribution width (RBC) [Ratio] 39.8 fl 35.1-43.9 [facility] Glomerular filtration rate ( GFR) estimation/1.73 sq m using serum, plasma, or whole bOrdered By: Katie Rosenbaum on 01-09-2025 GFR/1.73 sq M.predicted among non-blacks MDRD (S/P/Bld) [Vol rate/Area] 90 mL/min/{1.73_m2} >60 [facility] Hematocrit Auto (Bld) [Volum e fraction]Ordered By: Katie Rosenbaum on 01-09-2025 Hematocrit (Bld) [Volume fraction] 28.9 % Low 40-54 [facility] Hemoglobin measurementOrdere d By: Katie Rosenbaum on 01-09-2025 Hemoglobin (Bld) [Mass/Vol] 10.2 g/dL Low 13.0-16.5 [facility] Immature granulocytes/100 WB C Auto (Bld)Ordered By: Katie Rosenbaum 01-09-2025 Immature granulocytes/100 WBC (Bld) 0.400 % 0.0-0.9 [facility] MCV (mean corpuscular volume ) determinationOrdered By: Katie Rosenbaum 01-09-2025 MCV (RBC) [Entitic vol] 87.3 fL 80-94 [facility] Mean corpuscular hemoglobin (MCH) determinationOrdered By: Katie Rosenbaum 01-09-2025 MCH (RBC) [Entitic mass] 30.8 pg 27.0-32.0 [facility] Monocyte percentageOrdered B y: Katie Rosenbaum on 01-09-2025 Monocytes/100 WBC (Bld) 13.7 % High 0-10 [facility] Neutrophil percentageOrdered By: Katie Rosenbaum 01-09-2025 Neutrophils/100 WBC (Bld) 68.2 % 47-70 [facility] Platelet countOrdered By: Linda Rosenbaum on 01-09-2025 Platelets (Bld) [#/Vol] 296 10*3/uL 150-450 [facility] Potassium measurement (mass/ volume)Ordered By: Katie Rosenbaum 01-09-2025 Potassium (Unsp spec) [Mass/Vol] 3.9 mmol/L 3.3-5.1 [facility] RBC Auto (Bld) [#/Vol]Ordere d By: Katie Rosenbaum on 01-09-2025 RBC (Bld) [#/Vol] 3.31 10*6/uL Low 4.6-6.2 [facility] Serum creatinine measurement (mass/volume)Ordered By: Katie Rosenbaum on 01-09-2025 Creatinine [Mass/Vol] 0.92 mg/dL 0.70-1.20 [facility] Serum glucose measurement (m ass/volume)Ordered By: Katie Rosenbaum on 01-09-2025 Glucose [Mass/Vol] 127 mg/dL High 70-99 [facility] Serum or plasma calcium jung urement (mass/volume)Ordered By: Katie Rosenbaum on 01-09-2025 Calcium [Mass/Vol] 8.6 mg/dL 7.6-11.0 [facility] Serum or plasma urea nitroge n measurement (mass/volume)Ordered By: Katie Rosenbaum on 01-09-2025 Urea nitrogen [Mass/Vol] 14 mg/dL 4-19 [facility] Sodium levelOrdered By: Katie Rosenbaum on 01-09-2025 Sodium [Moles/Vol] 129 mmol/L Low 133-145 [facility] Troponin T HS 4 HRon 025 Trop T High Sen 37 ng/L High <=22 [facility] Comment on above: Performed By: #### L 501.2300, L500.4100, L100.0100 #### [facility] Laboratory [address] [place], [place] [address] [place], [place], [id number] Troponin T.cardiac [Mass/vol ume] in Serum or Plasma by High sensitivity methodOrdered By: Aguilar Matthews on 01-09-2025 Troponin T.cardiac High sensitivity method [Mass/Vol] 37 ng/L High <22 [facility] White blood cell (WBC) count Ordered By: Katie Rosenbaum on 01-09-2025 WBC (Bld) [#/Vol] 12.2 10*3/uL High 4.4-11.0 [facility] 12 Lead EKGon 01-08-2025 12 Lead EKG [facility] Cardiovascular Services [address] [place] [address] 12 Lead EKG 01/08/251956 MR#: [id number] Acct: [id number] Name: NAYLA BENNETT Rep #: [id number] : 1955 69 From: Sawyer Buck MD Attending Dr: Dr. Corey Pelaez DO Status: A DM IN Ordering Dr: Aguilar Matthews MD Date: 01/08/25 Location: [facility] Sex: M C Admitted: 01/09/25 Test Reason : DYSRHYTHMIA Blood Pressure : */* mmHG Vent. Rate : 79 BPM Atrial Rate : 79 BPM P-R Int : 200 ms QRS Dur : 74 ms QT Int : 350 ms P-R-T Axes : 7 51 87 degrees QTcB Int : 401 ms Normal sinus rhythm Normal ECG Confirmed by CIELO ROMO, SAWYER ([id number]), supervising editor news reel URMILA CHINO ([id number]) on 01/09/2025 8:33:55 AM Referred By: Confirmed By: SAWYER BUCK MD 01/09/25 0834 Date Sawyer Buck MD CC: Dr. Eddi Lynn MD; Dr. Aguilar Matthews MD; Dr. Corey Pelaez DO Signed Normal [facility] Abdomen/Pelvis W IV Cont ONL Yon 01-08-2025 Abdomen/Pelvis W IV Cont ONLY [facility] Imaging Services [address] [place] [address] Abdomen/Pelvis W IV Cont ONLY MR#: [id number] Acct: [id number] Name: NAYLA BENNETT Rep #: [id number] : 1955 M 69 From: Dimitri mccarthy MD PCP: Dr. Eddi Lynn MD Status: REG ER Study: Abdomen/Pelvis W IV Cont ONLY Date of Exam: Exam# [id number] Ordering Dr: Aguilar Matthews MD PROCEDURE: ABDOMEN/PELVIS [...] in the abdomen or pelvis Reading Location: [facility] CC: Dr. Eddi Lynn MD; Dr. Aguilar Matthews MD Tire Spotter: Signed Normal [facility] Bilirubin Test strip Ql (U)O rdered By: Aguilar Matthews on 01-08-2025 Bilirubin Ql (U) Negative Negative [facility] Bilirubin, totalOrdered By: Aguilar Matthews on 01-08-2025 Bilirubin [Mass/Vol] 0.22 mg/dL 0.00-1.30 [facility] CBC W/Diff, Automatedon 12-24 Absolute Lymph 1.38 X10 3/uL Normal 0.83-4.51 [facility] Comment on above: Performed By: #### L 501.080 #### [facility] Laboratory [address] [place], [address] Absolute Neut 10.2 X10 3/uL High 2.0-7.7 [facility] Comment on above: Performed By: #### L 501.080 #### [facility] Laboratory [address] [place], [address] Basophils/100 WBC (Bld) 0.3 % Normal 0-1 [facility] Comment on above: Performed By: #### L 501.080 #### [facility] Laboratory [address] [place], [address] Eosinophils/100 WBC (Bld) 0.5 % Normal 0-5 [facility] Comment on above: Performed By: #### L 501.080 #### [facility] Laboratory [address] [place], [address] Erythrocyte distribution width (RBC) [Ratio] 12.3 % Normal 11.6-14.6 [facility] Comment on above: Performed By: #### L 501.080 #### [facility] Laboratory [address] [place], [address] Hematocrit (Bld) [Volume fraction] 32.4 % Low 40-54 [facility] Comment on above: Performed By: #### L 501.080 #### [facility] Laboratory [address] [place], [address] Hemoglobin (Bld) [Mass/Vol] 10.9 g/dL Low 13.0-16.5 [facility] Comment on above: Performed By: #### L 501.080 #### [facility] Laboratory [address] [place], [address] IG% 0.500 Normal 0.0-0.9 [facility] Comment on above: Result Comment: IG% - Immature Granulocytes (promyelocytes, myelocytes and metamyelocytes) > 1% indicates that a LEFT SHIFT is Present. Performed By: #### L 501.080 #### [facility] Laboratory [address] [place], [address] Lymphocytes/100 WBC (Bld) 10.5 % Low 19-41 [facility] Comment on above: Performed By: #### L 501.080 #### [facility] Laboratory [address] [place], [address] MCH (RBC) [Entitic mass] 30.1 pg Normal 27.0-32.0 [facility] Comment on above: Performed By: #### L 501.080 #### [facility] Laboratory [address] [place], [address] MCHC (RBC) [Mass/Vol] 33.6 g/dL Normal 32-36 [facility] Comment on above: Performed By: #### L 501.080 #### [facility] Laboratory [address] [place], [address] MCV (RBC) [Entitic vol] 89.5 fL Normal 80-94 [facility] Comment on above: Performed By: #### L 501.080 #### [facility] Laboratory [address] [place], [address] Monocytes/100 WBC (Bld) 10.1 % High 0-10 [facility] Comment on above: Performed By: #### L 501.080 #### [facility] Laboratory [address] [place], [address] Neutrophils/100 WBC (Bld) 78.1 % High 47-70 [facility] Comment on above: Performed By: #### L 501.080 #### [facility] Laboratory [address] [place], [address] Nucleated RBC (Bld) [#/Vol] 0 10*3/uL Normal 0-5 [facility] Comment on above: Performed By: #### L 501.080 #### [facility] Laboratory [address] [place], [address] Platelet mean volume (Bld) [Entitic vol] 9.1 fL Normal 6.2-12.0 [facility] Comment on above: Performed By: #### L 501.080 #### [facility] Laboratory [address] [place], [address] Platelets (Bld) [#/Vol] 321 10*3/uL Normal 150-450 [facility] Comment on above: Performed By: #### L 501.080 #### [facility] Laboratory [address] [place], [address] RBC (Bld) [#/Vol] 3.62 10*6/uL Low 4.6-6.2 [facility] Comment on above: Performed By: #### L 501.080 #### [facility] Laboratory [address] [place], [address] RDW SD 40.0 fl Normal 35.1-43.9 [facility] Comment on above: Performed By: #### L 501.080 #### [facility] Laboratory [address] [place], [address] WBC (Bld) [#/Vol] 13.1 10*3/uL High 4.4-11.0 [facility] Comment on above: Performed By: #### L 501.080 #### [facility] Laboratory [address] [place], [address] CTA Chest W/WO Contraston CTA Chest W/WO Contrast [facility] Imaging Services [address] [place] [address] CTA Chest W/WO Contrast MR#: [id number] Acct: [id number] Name: NAYLA BENNETT Rep #: [id number] : 1955 M 69 From: Robe ceja MD PCP: Dr. Eddi Lynn MD Status: ADM IN Study: CTA Chest W/WO Contrast Date of Exam: 01/08/25 Exam# [id number] Ordering Dr: Aguilar Matthews MD PROCEDURE: CTA [...] measuring 1.3 cm, probably reactive. Reading Location: [place] [address] CC: Dr. Eddi Lynn MD; Dr. Aguilar Matthews MD Tire Spotter: Signed Normal [facility] Chest PA and Lateralon 01-08 Chest PA and Lateral [facility] Imaging Services [address] [place] [address] Chest PA and Lateral MR#: [id number] Acct: [id number] Name: NAYLA BENNETT Rep #: [id number] : 1955 M 69 From: Dimitri mccarthy MD PCP: Dr. Eddi Lynn MD Status: REG ER Study: Chest PA and Lateral Date of Exam: 01/08/25 Exam# [id number] Ordering Dr: Aguilar Matthews MD PROCEDURE: CHEST [...] left lung base airspace disease. Reading Location: [facility] CC: Dr. Eddi Lynn MD; Dr. Aguilar Matthews MD Tire Spotter: Signed Normal [facility] Comprehensive Metabolic Prof ilon 01-08-2025 Albumin [Mass/Vol] 3.9 g/dL Normal 3.4-4.8 [facility] Comment on above: Performed By: #### L 501.080 #### [facility] Laboratory [address] [place], [address] Albumin/Globulin [Mass ratio] 1.5 {ratio} Normal 0.9-2.4 [facility] Comment on above: Performed By: #### L 501.080 #### [facility] Laboratory [address] [place], [address] ALK PHOS 82 U/L Normal 40-129 [facility] Comment on above: Performed By: #### L 501.080 #### [facility] Laboratory [address] [place], [address] ALT [Catalytic activity/Vol] 24 U/L Normal <=46 [facility] Comment on above: Performed By: #### L 501.080 #### [facility] Laboratory [address] [place], [address] AST [Catalytic activity/Vol] 23 U/L Normal <=37 [facility] Comment on above: Result Comment: Hemo lysis present, Results??could be affected. ?? Performed By: #### L 501.080 #### [facility] Laboratory [address] [place], [address] Bilirubin [Mass/Vol] 0.22 mg/dL Normal 0.00-1.30 [facility] Comment on above: Performed By: #### L 501.080 #### [facility] Laboratory [address] [place], [address] BUN/CRE 19.4 RATIO Normal 10-20 [facility] Comment on above: Performed By: #### L 501.080 #### [facility] Laboratory [address] [place], [address] Calcium [Mass/Vol] 8.8 mg/dL Normal 7.6-11.0 [facility] Comment on above: Performed By: #### L 501.080 #### [facility] Laboratory [address] [place], [address] Chloride [Moles/Vol] 94 mmol/L Low 98-108 [facility] Comment on above: Performed By: #### L 501.080 #### [facility] Laboratory [address] [place], [address] CO2 [Moles/Vol] 22.2 mmol/L Normal 21.0-32.0 [facility] Comment on above: Performed By: #### L 501.080 #### [facility] Laboratory [address] [place], [address] Creatinine [Mass/Vol] 0.85 mg/dL Normal 0.70-1.20 [facility] Comment on above: Performed By: #### L 501.080 #### [facility] Laboratory [address] [place], [address] ECRCL 103.03 ml/min Normal 50-250 [facility] Comment on above: Performed By: #### L 501.080 #### [facility] Laboratory [address] [place], [address] GAP 13 Normal 5-15 [facility] Comment on above: Performed By: #### L 501.080 #### [facility] Laboratory [address] [place], [address] GFR/1.73 sq M.predicted among non-blacks MDRD (S/P/Bld) [Vol rate/Area] 93 mL/min/{1.73_m2} Normal >60 [facility] Comment on above: Result Comment: mL/m in/1.73m2 CKD-EPI Creatinine Equation (2020) Performed By: #### L 501.080 #### [facility] Laboratory [address] [place], [address] Globulin (S) [Mass/Vol] 2.6 g/dL Normal 2.2-4.2 [facility] Comment on above: Performed By: #### L 501.080 #### [facility] Laboratory [address] [place], [address] Glucose [Mass/Vol] 193 mg/dL High 70-99 [facility] Comment on above: Performed By: #### L 501.080 #### [facility] Laboratory [address] [place], [address] Potassium [Moles/Vol] 4.4 mmol/L Normal 3.3-5.1 [facility] Comment on above: Result Comment: Hemo lysis present, Results??could be affected. ?? Performed By: #### L 501.080 #### [facility] Laboratory [address] [place], [address] Sodium [Moles/Vol] 129 mmol/L Low 133-145 [facility] Comment on above: Performed By: #### L 501.080 #### [facility] Laboratory [address] [place], [address] T PROT 6.5 g/dL Normal 5.9-8.4 [facility] Comment on above: Performed By: #### L 501.080 #### [facility] Laboratory [address] [place], [address] Urea nitrogen [Mass/Vol] 17 mg/dL Normal 4-19 [facility] Comment on above: Performed By: #### L 501.080 #### [facility] Laboratory [address] [place], [address] D-Dimer Quantitative (DVT/PE )on 01-08-2025 D-DIMER QUANT < 0.27 Low 0.27-0.49 [facility] Comment on above: Result Comment: NORM AL D-Dimer level (<0.50) indicates no DVT or PE. Performed By: #### L 501.2300, L500.4100, L100.0100 #### [facility] Laboratory [address] [place], [address] Emergency Department Summary on 01-08-2025 Emergency Department Summary [facility] Medical Records Department [address] [place] [address] Emergency Department Summary 01/08/25 MR#: [id number] Acct: [id number] Name: NAYLA BENNETT Rep #: [id number] : 1955 69 From: Aguilar Matthews MD [...] similar symptoms: Yes Recent Illness/Hospitalizat ion: Yes [facility] Medical History Developmental non-verbal disorder Vitamin [...] previous surgery Social History housing: other details: [facility] Smoking Status: Never smoker Electronic Cigarette Use: [...] Physical Exa (more content not included)... Normal [facility]P Exam - Hospitalist [facility] Medical Records Department [address] [place] [address] H P Exam - Hospitalist 01/08/25 4396 MR#: [id number] Acct: [id number] Name: NAYLA BENNETT Rep #: [id number] : 1955 69 From: Katie Rosenbaum MD PCP: Dr. Eddi Lynn MD Status:ADM IN Location: [facility] [id number] HPI - General General Date of Admission: [...] being admitted to be managed for hyponatremia [facility] Medical History Developmental non-verbal disorder Vitamin [...] previous surgery Social History housing: other details: [facility] Smoking Status: Never smoker Electronic Cigarette Use: [...] Pulse Rat (more content not included)... Normal [facility] Ketones Test strip Ql (U)Ord ered By: Aguilar Matthews on 01-08-2025 Ketones Ql (U) Negative Negative [facility] L501.4021on 01-08-2025 Trop T High Sen 30 ng/L High <=22 [facility] Comment on above: Performed By: #### L 501.080 #### [facility] Laboratory [address] [place], [place], [address] Lipaseon 01-08-2025 Lipase [Catalytic activity/Vol] 22 U/L Normal 13-75 [facility] Comment on above: Result Comment: Harini crandall note: LIPASE revised reference range effective 22. New Lipase methodology. Expected to produce lower values than the previous assay method. NEW Reference Range: 13 - 75 U/L Performed By: #### L 501.080 #### [facility] Laboratory [address] [place], [address] Mucus LM Ql (Urine sed)Order ed By: Aguilar Matthews on 01-08-2025 Mucus Ql (Urine sed) 1+ /hpf [facility] Natriuretic peptide.B prohor adriana N-Terminal [Mass/volume] in Serum or PlasmaOrdered By: Aguilar Matthews on 01-08-2025 Natriuretic peptide.B prohormone N-Terminal [Mass/Vol] 1535 pg/mL High <900 [facility] Nitrite Test strip Ql (U)Ord ered By: Aguilar Matthews on 01-08-2025 Nitrite Ql (U) Negative Negative [facility] No Panel InformationOrdered By: Aguilar Matthews on 01-08-2025 23 U/L <38 [facility] Pro- Brain NATRIURETIC PEPTI 01-08-2025 Natriuretic peptide B (Bld) [Mass/Vol] 1535 pg/mL High <=900 [facility] Comment on above: Result Comment: Hear t Failure Unlikely: < 300 pg/mL Heart Failure Likely < 50 Years: > 450 pg/mL 50-75 Years: > 900 pg/mL >75 Years: > 1800 pg/mL Performed By: #### L 501.2300, L500.4100, L100.0100 #### [facility] Laboratory [address] [place], [address] Protein Test strip Ql (U)Ord ered By: Aguilar Matthews on 01-08-2025 Protein Ql (U) 30 mg/dl High Negative [facility] Serum globulin measurementOr dered By: Aguilar Matthews on 01-08-2025 Globulin (S) [Mass/Vol] 2.6 g/dL 2.2-4.2 [facility] Serum or plasma alanine medrano otransferase (ALT) measurementOrdered By: Aguilar Matthews on 01-08-2025 ALT [Catalytic activity/Vol] 24 U/L <47 [facility] Serum or plasma albumin jung urement (mass/volume)Ordered By: Aguilar Matthews on 01-08-2025 Albumin [Mass/Vol] 3.9 g/dL 3.4-4.8 [facility] Serum or plasma albumin/glob ulin mass ratioOrdered By: Aguilar Matthews on 01-08-2025 Albumin/Globulin [Mass ratio] 1.5 {ratio} 0.9-2.4 [facility] Serum or plasma alkaline ally sphatase measurementOrdered By: Aguilar Matthews on 01-08-2025 ALP [Catalytic activity/Vol] 82 U/L 40-129 [facility] Squamous epithelial cells de tection in urine sediment by light microscopyOrdered By: Aguilra Matthews on 01-08-2025 Epithelial cells.squamous LM Ql (Urine sed) 0-5 SEEN /hpf 0-5 [facility] Total proteinOrdered By: Raheem Matthews on 01-08-2025 Protein [Mass/Vol] 6.5 g/dL 5.9-8.4 [facility] Troponin T HS 2 HRon 025 Trop T High Sen 31 ng/L High <=22 [facility] Comment on above: Performed By: #### L 501.2300, L500.4100, L100.0100 #### [facility] Laboratory [address] [place], [address] Troponin T.cardiac [Mass/vol ume] in Serum or Plasma by High sensitivity methodOrdered By: Aguilar Matthews on 01-08-2025 Troponin T.cardiac High sensitivity method [Mass/Vol] 31 ng/L High <22 [facility] Troponin T.cardiac High sensitivity method [Mass/Vol] 30 ng/L High <22 [facility] Urinalysis, Completeon 01-08 EPI,SQUAMOUS 0-5 SEEN Normal 0-5 [facility] Comment on above: Order Comment: AUDIE TER SPECIMEN Performed By: #### L 501.2300, L500.4100, L100.0100 #### [facility] Laboratory [address] [place], [address] Mucus Ql (Urine sed) 1+ /hpf Normal [facility] Comment on above: Order Comment: AUDIE TER SPECIMEN Performed By: #### L 501.2300, L500.4100, L100.0100 #### [facility] Laboratory [address] [place], [address] RBC 0-5 SEEN Normal 0-5 [facility] Comment on above: Order Comment: AUDIE TER SPECIMEN Performed By: #### L 501.2300, L500.4100, L100.0100 #### [facility] Laboratory [address] [place], [address] WBC 0-5 SEEN Normal 0-5 [facility] Comment on above: Order Comment: AUDIE TER SPECIMEN Performed By: #### L 501.2300, L500.4100, L100.0100 #### [facility] Laboratory [address] [place], [address] BACTERIA 0 SEEN Normal None Seen [facility] Comment on above: Order Comment: AUDIE TER SPECIMEN Performed By: #### L 501.2300, L500.4100, L100.0100 #### [facility] Laboratory [address] [place], [address] Urine clarityOrdered By: Raheem Matthews on 01-08-2025 Clarity (U) Clear Clear [facility] Urine color determinationOrd ered By: Aguilar Matthews on 01-08-2025 Color (U) Yellow Yellow [facility] Urine glucose detectionOrder ed By: Aguilar Mattehws on 01-08-2025 Glucose Ql (U) 1000 mg/dl High Normal [facility] Urine leukocyte esterase det ection by dipstickOrdered By: Aguilar Matthews on 01-08-2025 Leukocyte esterase Test strip Ql (U) Negative Negative [facility] Urine pHOrdered By: Aguilar ellsworth on 01-08-2025 pH (U) 6.0 [pH] 5.0 - 8.0 [facility] Urine sediment bacteria coun t by microscopy (number/high power field)Ordered By: Aguilar Matthews on 01-08-2025 Bacteria LM.HPF (Urine sed) [#/Area] 0 /[HPF] None Seen [facility] Urine specific gravity measu rementOrdered By: Aguilar Matthews on 01-08-2025 Specific gravity (U) [Rel density] 1.015 1.002-1.030 [facility] Urine urobilinogen measureme ntOrdered By: Aguilar Matthews on 01-08-2025 Urobilinogen Ql (U) Normal mg/dl Normal [facility] White blood cell countOrdere d By: Aguilar Matthews on 01-08-2025 White blood cell count 0-5 SEEN /hpf 0-5 [facility] Culture, Blood (WB)on 2024 CUB Blood cultures x2, from two different sites No growth in 5 days. Normal [facility] Comment on above: Performed By: #### L 501.2300, L500.4100, L100.0100 #### [facility] Laboratory [address] [place], [address] CUB Blood cultures x2, from two different sites No growth in 5 days. Normal [facility] Comment on above: Performed By: #### L 503.0106 #### [facility] Laboratory [address] [place], [place], [address] KEPPRA (LEVETIRACETAM)on KEPPRA 18.4 ug/mL Normal 10.0-40.0 [facility] Comment on above: Result Comment: Perf ormed at: - [facility] [address] [id number] Casting Cleaner: Pacheco Campos PhD, Phone: [phone] Performed at: - [facility] [address] [id number] Casting Cleaner: Vickey Romeo MD, Phone: [phone] Performed By: #### L 501.080 #### [facility] Laboratory [address] [place], [place], [address] L3700.3000on 01-03-2025 PHENobarbital [Mass/Vol] 19 ug/mL Normal 15-40 [facility] Comment on above: Result Comment: Dete ction Limit = 3 Performed By: #### L 501.080 #### [facility] Laboratory [address] [place], [place], [address] Anion gap in Serum or Plasma Ordered By: Alice Mckeon on 01-02-2025 Anion gap [Moles/Vol] 10 mmol/L 08-07 [facility] BUN/creatinine ratioOrdered By: Alice Mckeon on 01-02-2025 Urea nitrogen/Creatinine [Mass ratio] 13.1 mg/mg 01-12 [facility] Basic Metabolic Profile (BMP )on 01-02-2025 BUN/CRE 13.1 RATIO Normal 01-12 [facility] Comment on above: Performed By: #### L 503.0106 #### [facility] Laboratory [address] [place], [place], [address] Calcium [Mass/Vol] 8.8 mg/dL Normal 7.6-11.0 [facility] Comment on above: Performed By: #### L 503.0106 #### [facility] [address] [place], [address] Chloride [Moles/Vol] 99 mmol/L Normal 98-108 [facility] Comment on above: Performed By: #### L 503.0106 #### [facility] [address] [place], [address] CO2 [Moles/Vol] 23.2 mmol/L Normal 21.0-32.0 [facility] Comment on above: Performed By: #### L 503.0106 #### [facility] [address] [place], [address] Creatinine [Mass/Vol] 0.99 mg/dL Normal 0.70-1.20 [facility] Comment on above: Performed By: #### L 503.0106 #### [facility] [address] [place], [address] ECRCL 86.77 ml/min Normal 50-250 [facility] Comment on above: Performed By: #### L 503.0106 #### [facility] [address] [place], [address] GAP 10 Normal 5-15 [facility] Comment on above: Performed By: #### L 503.0106 #### [facility] [address] [place], [address] GFR/1.73 sq M.predicted among non-blacks MDRD (S/P/Bld) [Vol rate/Area] 82 mL/min/{1.73_m2} Normal >60 [facility] Comment on above: Result Comment: mL/m in/1.73m2 CKD-EPI Creatinine Equation (2020) Performed By: #### L 503.0106 #### [facility] [address] [place], [address] Glucose [Mass/Vol] 122 mg/dL High 70-99 [facility] Comment on above: Performed By: #### L 503.0106 #### [facility] [address] [place], [address] Potassium [Moles/Vol] 3.9 mmol/L Normal 3.3-5.1 [facility] Comment on above: Performed By: #### L 503.0106 #### [facility] [address] [place], [address] Sodium [Moles/Vol] 132 mmol/L Low 133-145 [facility] Comment on above: Performed By: #### L 503.0106 #### [facility] [address] [place], [address] Urea nitrogen [Mass/Vol] 13 mg/dL Normal 4-19 [facility] Comment on above: Performed By: #### L 503.0106 #### [facility] [address] [place], [address] Bedside Glucoseon 01-02-2025 FINGERSTICK GLU 173 mg/dL High 74-106 [facility] Comment on above: Result Comment: KELBY GEMENT OF PATIENT CARE PER NURSING PROTOCOL Performed By: #### L 501.2300, L500.4100, L100.0100 #### [facility] [address] [place], [address] FINGERSTICK GLU 119 mg/dL High 74-106 [facility] Comment on above: Result Comment: KELBY GEMENT OF PATIENT CARE PER NURSING PROTOCOL Performed By: #### L 501.2300, L500.4100, L100.0100 #### [facility] [address] [place], [address] CBC-Complete Blood Cnt No Di ffon 01-02-2025 Erythrocyte distribution width (RBC) [Ratio] 12.3 % Normal 11.6-14.6 [facility] Comment on above: Performed By: #### L 503.0106 #### [facility] [address] [place], [address] Hematocrit (Bld) [Volume fraction] 35.2 % Low 40-54 [facility] Comment on above: Performed By: #### L 503.0106 #### [facility] [address] [place], [address] Hemoglobin (Bld) [Mass/Vol] 12.5 g/dL Low 13.0-16.5 [facility] Comment on above: Performed By: #### L 503.0106 #### [facility] [address] [place], [address] MCH (RBC) [Entitic mass] 30.3 pg Normal 27.0-32.0 [facility] Comment on above: Performed By: #### L [id number] #### [facility] [address] [place], [address] MCHC (RBC) [Mass/Vol] 35.5 g/dL Normal 32-36 [facility] Comment on above: Performed By: #### L [id number] #### [facility] [address] [place], [address] MCV (RBC) [Entitic vol] 85.4 fL Normal 80-94 [facility] Comment on above: Performed By: #### L 503.0106 #### [facility] [address] [place], [address] Platelet mean volume (Bld) [Entitic vol] 8.7 fL Normal 6.2-12.0 [facility] Comment on above: Performed By: #### L 503.0106 #### [facility] [address] [place], [address] Platelets (Bld) [#/Vol] 294 10*3/uL Normal 150-450 [facility] Comment on above: Performed By: #### L 503.0106 #### [facility] [address] [place], [address] RBC (Bld) [#/Vol] 4.12 10*6/uL Low 4.6-6.2 [facility] Comment on above: Performed By: #### L 503.0106 #### [facility] [address] [place], [address] RDW SD 38.5 fl Normal 35.1-43.9 [facility] Comment on above: Performed By: #### L 503.0106 #### [facility] [address] [place], [address] WBC (Bld) [#/Vol] 11.1 10*3/uL High 4.4-11.0 [facility] Comment on above: Performed By: #### L 503.0106 #### [facility] [address] [place], [address] Carbon dioxide, total [Moles /volume] in Central venous bloodOrdered By: Alice Mckeon on 01-02-2025 CO2 [Moles/Vol] 23.2 mmol/L 21.0-32.0 [facility] Chloride assayOrdered By: Rm Mckeon on 01-02-2025 Chloride [Moles/Vol] 99 mmol/L 98-108 [facility] Erythrocyte distribution wid th ratioOrdered By: Alice Mckeon on 01-02-2025 Erythrocyte distribution width (RBC) [Ratio] 12.3 % 11.6-14.6 [facility] Erythrocyte distribution wid th standard deviationOrdered By: Alice Mckeon on 01-02-2025 Erythrocyte distribution width (RBC) [Ratio] 38.5 fl 35.1-43.9 [facility] Glomerular filtration rate ( GFR) estimation/1.73 sq m using serum, plasma, or whole bOrdered By: Alice Mckeon on 01-02-2025 GFR/1.73 sq M.predicted among non-blacks MDRD (S/P/Bld) [Vol rate/Area] 82 mL/min/{1.73_m2} >60 [facility] Glucose measurement at bedsi deOrdered By: Alice Mckeon on 01-02-2025 Glucose [Mass/Vol] 173 mg/dL High 74-106 [facility] Hematocrit Auto (Bld) [Volum e fraction]Ordered By: Alice Mckeon on 01-02-2025 Hematocrit (Bld) [Volume fraction] 35.2 % Low 40-54 [facility] Hemoglobin measurementOrdere d By: Alice Mckeon on 01-02-2025 Hemoglobin (Bld) [Mass/Vol] 12.5 g/dL Low 13.0-16.5 [facility] MCV (mean corpuscular volume ) determinationOrdered By: Alice Mckeon on 01-02-2025 MCV (RBC) [Entitic vol] 85.4 fL 80-94 [facility] Mean corpuscular hemoglobin (MCH) determinationOrdered By: Alice Mckeon on 01-02-2025 MCH (RBC) [Entitic mass] 30.3 pg 27.0-32.0 [facility] Platelet countOrdered By: Rm Mckeon on 01-02-2025 Platelets (Bld) [#/Vol] 294 10*3/uL 150-450 [facility] Potassium measurement (mass/ volume)Ordered By: Alice Mckeon on 01-02-2025 Potassium (Unsp spec) [Mass/Vol] 3.9 mmol/L 3.3-5.1 [facility] RBC Auto (Bld) [#/Vol]Ordere d By: Alice Mckeon on 01-02-2025 RBC (Bld) [#/Vol] 4.12 10*6/uL Low 4.6-6.2 [facility] Serum creatinine measurement (mass/volume)Ordered By: Alice Mckeon on 01-02-2025 Creatinine [Mass/Vol] 0.99 mg/dL 0.70-1.20 [facility] Serum glucose measurement (m ass/volume)Ordered By: Alice Mckeon on 01-02-2025 Glucose [Mass/Vol] 122 mg/dL High 70-99 [facility] Serum or plasma calcium jung urement (mass/volume)Ordered By: Alice Mckeon on 01-02-2025 Calcium [Mass/Vol] 8.8 mg/dL 7.6-11.0 [facility] Serum or plasma urea nitroge n measurement (mass/volume)Ordered By: Alice Mckeon on 01-02-2025 Urea nitrogen [Mass/Vol] 13 mg/dL 4-19 [facility] Sodium levelOrdered By: Jelena Mckeon on 01-02-2025 Sodium [Moles/Vol] 132 mmol/L Low 133-145 [facility] White blood cell (WBC) count Ordered By: Alice Mckeon on 01-02-2025 WBC (Bld) [#/Vol] 11.1 10*3/uL High 4.4-11.0 [facility] Basic Metabolic Profile (BMP )on 01-01-2025 BUN/CRE 12.2 RATIO Normal 10-20 [facility] Comment on above: Performed By: #### L 501.2300, L500.4100, L100.0100 #### [facility] [address] [place], [address] Calcium [Mass/Vol] 8.9 mg/dL Normal 7.6-11.0 [facility] Comment on above: Performed By: #### L 501.2300, L500.4100, L100.0100 #### [facility] [address] [place], [address] Chloride [Moles/Vol] 94 mmol/L Low 98-108 [facility] Comment on above: Performed By: #### L 501.2300, L500.4100, L100.0100 #### [facility] [address] [place], [address] CO2 [Moles/Vol] 23.4 mmol/L Normal 21.0-32.0 [facility] Comment on above: Performed By: #### L 501.2300, L500.4100, L100.0100 #### [facility] [address] [place], [address] Creatinine [Mass/Vol] 0.96 mg/dL Normal 0.70-1.20 [facility] Comment on above: Performed By: #### L 501.2300, L500.4100, L100.0100 #### [facility] [address] [place], [address] ECRCL 89.53 ml/min Normal 50-250 [facility] Comment on above: Performed By: #### L 501.2300, L500.4100, L100.0100 #### [facility] [address] [place], [address] GAP 11 Normal 5-15 [facility] Comment on above: Performed By: #### L 501.2300, L500.4100, L100.0100 #### [facility] [address] [place], [address] GFR/1.73 sq M.predicted among non-blacks MDRD (S/P/Bld) [Vol rate/Area] 85 mL/min/{1.73_m2} Normal >60 [facility] Comment on above: Result Comment: mL/m in/1.73m2 CKD-EPI Creatinine Equation (2020) Performed By: #### L 501.2300, L500.4100, L100.0100 #### [facility] [address] [place], [address] Glucose [Mass/Vol] 139 mg/dL High 70-99 [facility] Comment on above: Performed By: #### L 501.2300, L500.4100, L100.0100 #### [facility] [address] [place], [address] Potassium [Moles/Vol] 3.8 mmol/L Normal 3.3-5.1 [facility] Comment on above: Performed By: #### L 501.2300, L500.4100, L100.0100 #### [facility] [address] [place], [address] Sodium [Moles/Vol] 129 mmol/L Low 133-145 [facility] Comment on above: Performed By: #### L 501.2300, L500.4100, L100.0100 #### [facility] [address] [place], [address] Urea nitrogen [Mass/Vol] 12 mg/dL Normal 4-19 [facility] Comment on above: Performed By: #### L 501.2300, L500.4100, L100.0100 #### [facility] [address] [place], [address] Bedside Glucoseon 01-01-2025 FINGERSTICK GLU 130 mg/dL High 74-106 [facility] Comment on above: Result Comment: KELBY GEMENT OF PATIENT CARE PER NURSING PROTOCOL Performed By: #### L 3700.3000, L3310.0000, L506.0200, L500.4050, L501.7300, L501.9520, L503.6005, L501.5200 #### [facility] [address] [place], [address] FINGERSTICK GLU 107 mg/dL High 74-106 [facility] Comment on above: Result Comment: KELBY GEMENT OF PATIENT CARE PER NURSING PROTOCOL Performed By: #### L 3700.3000, L3310.0000, L506.0200, L500.4050, L501.7300, L501.9520, L503.6005, L501.5200 #### [facility] [address] [place], [address] FINGERSTICK GLU 192 mg/dL High 74-106 [facility] Comment on above: Result Comment: KELBY GEMENT OF PATIENT CARE PER NURSING PROTOCOL Performed By: #### L 501.2300, L500.4100, L100.0100 #### [facility] [address] [place], [address] FINGERSTICK GLU 137 mg/dL High 74-106 [facility] Comment on above: Result Comment: KELBY LONGORIA OF PATIENT CARE PER NURSING PROTOCOL Performed By: #### L 503.0106 #### [facility] [address] [place], [address] CBC-Complete Blood Cnt No Di ffon 01-01-2025 Erythrocyte distribution width (RBC) [Ratio] 12.1 % Normal 11.6-14.6 [facility] Comment on above: Performed By: #### L 503.0106 #### [facility] [address] [place], [address] Hematocrit (Bld) [Volume fraction] 35.5 % Low 40-54 [facility] Comment on above: Performed By: #### L 503.0106 #### [facility] [address] [place], [address] Hemoglobin (Bld) [Mass/Vol] 12.8 g/dL Low 13.0-16.5 [facility] Comment on above: Performed By: #### L 503.0106 #### [facility] [address] [place], [address] MCH (RBC) [Entitic mass] 30.3 pg Normal 27.0-32.0 [facility] Comment on above: Performed By: #### L 503.0106 #### [facility] [address] [place], [address] MCHC (RBC) [Mass/Vol] 36.1 g/dL High 32-36 [facility] Comment on above: Performed By: #### L 503.0106 #### [facility] [address] [place], [address] MCV (RBC) [Entitic vol] 83.9 fL Normal 80-94 [facility] Comment on above: Performed By: #### L 503.0106 #### [facility] [address] [place], [address] Platelet mean volume (Bld) [Entitic vol] 8.9 fL Normal 6.2-12.0 [facility] Comment on above: Performed By: #### L 503.0106 #### [facility] [address] [place], [address] Platelets (Bld) [#/Vol] 303 10*3/uL Normal 150-450 [facility] Comment on above: Performed By: #### L 503.0106 #### [facility] [address] [place], [address] RBC (Bld) [#/Vol] 4.23 10*6/uL Low 4.6-6.2 [facility] Comment on above: Performed By: #### L 503.0106 #### [facility] [address] [place], [address] RDW SD 37.0 fl Normal 35.1-43.9 [facility] Comment on above: Performed By: #### L 503.0106 #### [facility] [address] [place], [address] WBC (Bld) [#/Vol] 13.0 10*3/uL High 4.4-11.0 [facility] Comment on above: Performed By: #### L 503.0106 #### [facility] [address] [place], [address] CRPon 01-01-2025 C-REACTIVE PROT 51.70 mg/L High 0.0-3.0 [facility] Comment on above: Performed By: #### L 501.2300, L500.4100, L100.0100 #### [facility] [address] [place], [address] Erythrocyte Sed Rateon 01-01 SED RATE 16 mm/hr Normal 0-20 [facility] Comment on above: Performed By: #### L 501.2300, L500.4100, L100.0100 #### [facility] [address] [place], [address] Erythrocyte sedimentation ra teOrdered By: Alice Mckeon on 01-01-2025 ESR (Bld) [Velocity] 16 mm/h 0-20 [facility] L509.7001on 01-01-2025 Procalcitonin 0.08 ng/mL Normal <=0.10 [facility] Comment on above: Result Comment: Inte rpretation: [...] By: #### L 501.2300, L500.4100, L100.0100 #### [facility] [address] [place], [address] Phosphoruson 01-01-2025 Phosphate [Mass/Vol] 3.0 mg/dL Normal 2.7-4.5 [facility] Comment on above: Performed By: #### L 501.2300, L500.4100, L100.0100 #### [facility] [address] [place], [address] Procalcitonin [Mass/volume] in Serum or Plasma by ImmunoassayOrdered By: Alice Mckeon on 01-01-2025 Procalcitonin IA [Mass/Vol] 0.08 ng/mL <0.11 [facility] Serum or plasma C reactive p rotein measurement (mass/volume)Ordered By: Alice Mckeon on 01-01-2025 CRP [Mass/Vol] 51.70 mg/L High 0.0-3.0 [facility] Absolute lymphocyte countOrd ered By: Jorge Dysono on 12-31-2024 Lymphocytes Auto (Unsp spec) [#/Vol] 1.34 10*3/uL 0.83-4.51 [facility] Automated lymphocyte count a s percentage of total leukocytesOrdered By: Jorge Dysono on 12-31-2024 Lymphocytes/100 WBC Auto (Unsp spec) 8.9 % Low 19-41 [facility] Basic Metabolic Profile (BMP )on 12-31-2024 BUN/CRE 13.3 RATIO Normal 10-20 [facility] Comment on above: Performed By: #### L 501.2300, L500.4100, L100.0100 #### [facility] [address] [place], [address] Calcium [Mass/Vol] 9.0 mg/dL Normal 7.6-11.0 [facility] Comment on above: Performed By: #### L 501.2300, L500.4100, L100.0100 #### [facility] [address] [place], [address] Chloride [Moles/Vol] 93 mmol/L Low 98-108 [facility] Comment on above: Performed By: #### L 501.2300, L500.4100, L100.0100 #### [facility] [address] [place], [address] CO2 [Moles/Vol] 22.4 mmol/L Normal 21.0-32.0 [facility] Comment on above: Performed By: #### L 501.2300, L500.4100, L100.0100 #### [facility] [address] [place], [address] Creatinine [Mass/Vol] 0.94 mg/dL Normal 0.70-1.20 [facility] Comment on above: Performed By: #### L 501.2300, L500.4100, L100.0100 #### [facility] [address] [place], [address] ECRCL 90.98 ml/min Normal 50-250 [facility] Comment on above: Performed By: #### L 501.2300, L500.4100, L100.0100 #### [facility] [address] [place], [address] GAP 12 Normal 5-15 [facility] Comment on above: Performed By: #### L 501.2300, L500.4100, L100.0100 #### [facility] [address] [place], [address] GFR/1.73 sq M.predicted among non-blacks MDRD (S/P/Bld) [Vol rate/Area] 87 mL/min/{1.73_m2} Normal >60 [facility] Comment on above: Result Comment: mL/m in/1.73m2 CKD-EPI Creatinine Equation (2020) Performed By: #### L 501.2300, L500.4100, L100.0100 #### [facility] [address] [place], [address] Glucose [Mass/Vol] 121 mg/dL High 70-99 [facility] Comment on above: Performed By: #### L 501.2300, L500.4100, L100.0100 #### [facility] [address] [place], [address] Potassium [Moles/Vol] 4.0 mmol/L Normal 3.3-5.1 [facility] Comment on above: Performed By: #### L 501.2300, L500.4100, L100.0100 #### [facility] [address] [place], [address] Sodium [Moles/Vol] 128 mmol/L Low 133-145 [facility] Comment on above: Performed By: #### L 501.2300, L500.4100, L100.0100 #### [facility] [address] [place], [address] Urea nitrogen [Mass/Vol] 13 mg/dL Normal 4-19 [facility] Comment on above: Performed By: #### L 501.2300, L500.4100, L100.0100 #### [facility] [address] [place], [address] BUN/CRE 12.7 RATIO Normal 10-20 [facility] Comment on above: Performed By: #### L 3700.3000, L3310.0000, L506.0200, L500.4050, L501.7300, L501.9520, L503.6005, L501.5200 #### [facility] [address] [place], [address] Calcium [Mass/Vol] 8.9 mg/dL Normal 7.6-11.0 [facility] Comment on above: Performed By: #### L 3700.3000, L3310.0000, L506.0200, L500.4050, L501.7300, L501.9520, L503.6005, L501.5200 #### [facility] [address] [place], [address] Chloride [Moles/Vol] 91 mmol/L Low 98-108 [facility] Comment on above: Performed By: #### L 3700.3000, L3310.0000, L506.0200, L500.4050, L501.7300, L501.9520, L503.6005, L501.5200 #### [facility] [address] [place], [address] CO2 [Moles/Vol] 22.5 mmol/L Normal 21.0-32.0 [facility] Comment on above: Performed By: #### L 3700.3000, L3310.0000, L506.0200, L500.4050, L501.7300, L501.9520, L503.6005, L501.5200 #### [facility] [address] [place], [place], [id number] Creatinine [Mass/Vol] 1.00 mg/dL Normal 0.70-1.20 [facility] Comment on above: Performed By: #### L 3700.3000, L3310.0000, L506.0200, L500.4050, L501.7300, L501.9520, L503.6005, L501.5200 #### [facility] [address] [place], [place], [id number] ECRCL 85.52 ml/min Normal 50-250 [facility] Comment on above: Performed By: #### L 3700.3000, L3310.0000, L506.0200, L500.4050, L501.7300, L501.9520, L503.6005, L501.5200 #### [facility] [address] [place], [address] GAP 12 Normal 5-15 [facility] Comment on above: Performed By: #### L 3700.3000, L3310.0000, L506.0200, L500.4050, L501.7300, L501.9520, L503.6005, L501.5200 #### [facility] [address] [place], [address] GFR/1.73 sq M.predicted among non-blacks MDRD (S/P/Bld) [Vol rate/Area] 81 mL/min/{1.73_m2} Normal >60 [facility] Comment on above: Result Comment: mL/m in/1.73m2 CKD-EPI Creatinine Equation (2020) Performed By: #### L 3700.3000, L3310.0000, L506.0200, L500.4050, L501.7300, L501.9520, L503.6005, L501.5200 #### [facility] [address] [place], [address] Glucose [Mass/Vol] 155 mg/dL High 70-99 [facility] Comment on above: Performed By: #### L 3700.3000, L3310.0000, L506.0200, L500.4050, L501.7300, L501.9520, L503.6005, L501.5200 #### [facility] [address] [place], [address] Potassium [Moles/Vol] 3.6 mmol/L Normal 3.3-5.1 [facility] Comment on above: Performed By: #### L 3700.3000, L3310.0000, L506.0200, L500.4050, L501.7300, L501.9520, L503.6005, L501.5200 #### [facility] [address] [place], [address] Sodium [Moles/Vol] 126 mmol/L Low 133-145 [facility] Comment on above: Performed By: #### L 3700.3000, L3310.0000, L506.0200, L500.4050, L501.7300, L501.9520, L503.6005, L501.5200 #### [facility] [address] [place], [address] Urea nitrogen [Mass/Vol] 13 mg/dL Normal 4-19 [facility] Comment on above: Performed By: #### L 3700.3000, L3310.0000, L506.0200, L500.4050, L501.7300, L501.9520, L503.6005, L501.5200 #### [facility] [address] [place], [address] BUN/CRE 11.0 RATIO Normal 10-20 [facility] Comment on above: Performed By: #### L 501.080 #### [facility] [address] [place], [address] Calcium [Mass/Vol] 8.8 mg/dL Normal 7.6-11.0 [facility] Comment on above: Performed By: #### L 501.080 #### [facility] [address] [place], [address] Chloride [Moles/Vol] 91 mmol/L Low 98-108 [facility] Comment on above: Performed By: #### L 501.080 #### [facility] [address] [place], [address] CO2 [Moles/Vol] 23.0 mmol/L Normal 21.0-32.0 [facility] Comment on above: Performed By: #### L 501.080 #### [facility] [address] [place], [address] Creatinine [Mass/Vol] 1.00 mg/dL Normal 0.70-1.20 [facility] Comment on above: Performed By: #### L 501.080 #### [facility] [address] [place], [address] ECRCL 85.52 ml/min Normal 50-250 [facility] Comment on above: Performed By: #### L 501.080 #### [facility] [address] [place], [address] GAP 12 Normal 5-15 [facility] Comment on above: Performed By: #### L 501.080 #### [facility] [address] [place], [address] GFR/1.73 sq M.predicted among non-blacks MDRD (S/P/Bld) [Vol rate/Area] 81 mL/min/{1.73_m2} Normal >60 [facility] Comment on above: Result Comment: mL/m in/1.73m2 CKD-EPI Creatinine Equation (2020) Performed By: #### L 501.080 #### [facility] [address] [place], [address] Glucose [Mass/Vol] 140 mg/dL High 70-99 [facility] Comment on above: Performed By: #### L 501.080 #### [facility] [address] [place], [address] Potassium [Moles/Vol] 3.7 mmol/L Normal 3.3-5.1 [facility] Comment on above: Performed By: #### L 501.080 #### [facility] [address] [place], [address] Sodium [Moles/Vol] 126 mmol/L Low 133-145 [facility] Comment on above: Performed By: #### L 501.080 #### [facility] [address] [place], [address] Urea nitrogen [Mass/Vol] 11 mg/dL Normal 4-19 [facility] Comment on above: Performed By: #### L 501.080 #### [facility] [address] [place], [address] BUN/CRE 11.1 RATIO Normal 10-20 [facility] Comment on above: Performed By: #### L 501.2300, L500.4100, L100.0100 #### [facility] [address] [place], [address] Calcium [Mass/Vol] 8.7 mg/dL Normal 7.6-11.0 [facility] Comment on above: Performed By: #### L 501.2300, L500.4100, L100.0100 #### [facility] [address] [place], [address] Chloride [Moles/Vol] 89 mmol/L Low 98-108 [facility] Comment on above: Performed By: #### L 501.2300, L500.4100, L100.0100 #### [facility] [address] [place], [address] CO2 [Moles/Vol] 20.5 mmol/L Low 21.0-32.0 [facility] Comment on above: Performed By: #### L 501.2300, L500.4100, L100.0100 #### [facility] [address] [place], [address] Creatinine [Mass/Vol] 0.97 mg/dL Normal 0.70-1.20 [facility] Comment on above: Performed By: #### L 501.2300, L500.4100, L100.0100 #### [facility] [address] [place], [address] ECRCL 88.16 ml/min Normal 50-250 [facility] Comment on above: Performed By: #### L 501.2300, L500.4100, L100.0100 #### [facility] [address] [place], [address] GAP 14 Normal 5-15 [facility] Comment on above: Performed By: #### L 501.2300, L500.4100, L100.0100 #### [facility] [address] [place], [address] GFR/1.73 sq M.predicted among non-blacks MDRD (S/P/Bld) [Vol rate/Area] 84 mL/min/{1.73_m2} Normal >60 [facility] Comment on above: Result Comment: mL/m in/1.73m2 CKD-EPI Creatinine Equation (2020) Performed By: #### L 501.2300, L500.4100, L100.0100 #### [facility] [address] [place], [address] Glucose [Mass/Vol] 168 mg/dL High 70-99 [facility] Comment on above: Performed By: #### L 501.2300, L500.4100, L100.0100 #### [facility] [address] [place], [address] Potassium [Moles/Vol] 3.5 mmol/L Normal 3.3-5.1 [facility] Comment on above: Performed By: #### L 501.2300, L500.4100, L100.0100 #### [facility] [address] [place], [address] Sodium [Moles/Vol] 123 mmol/L Low 133-145 [facility] Comment on above: Performed By: #### L 501.2300, L500.4100, L100.0100 #### [facility] [address] [place], [address] Urea nitrogen [Mass/Vol] 11 mg/dL Normal 4-19 [facility] Comment on above: Performed By: #### L 501.2300, L500.4100, L100.0100 #### [facility] [address] [place], [address] BUN Normal 4-19 [facility] Comment on above: Result Comment: NEVE R DRAWN WHILE IN ICU, SPOKE TO TAMIA MONTOYA, OK TO CANCEL WHAT THEY NEVER DID AND UPDATE IT NOW Performed By: #### L 501.080 #### [facility] [address] [place], [address] BUN/CRE Normal 10-20 [facility] Comment on above: Result Comment: NEVE R DRAWN WHILE IN ICU, SPOKE TO TAMIA MONTOYA, OK TO CANCEL WHAT THEY NEVER DID AND UPDATE IT NOW Performed By: #### L 501.080 #### [facility] [address] [place], [address] Calcium Normal 7.6-11.0 [facility] Comment on above: Result Comment: NEVE R DRAWN WHILE IN ICU, SPOKE TO TAMIA MONTOYA, OK TO CANCEL WHAT THEY NEVER DID AND UPDATE IT NOW Performed By: #### L 501.080 #### [facility] [address] [place], [address] CL Normal 98-108 [facility] Comment on above: Result Comment: NEVE R DRAWN WHILE IN ICU, SPOKE TO TAMIA MONTOYA, OK TO CANCEL WHAT THEY NEVER DID AND UPDATE IT NOW Performed By: #### L 501.080 #### [facility] [address] [place], [address] CO2 Normal 21.0-32.0 [facility] Comment on above: Result Comment: NEVE R DRAWN WHILE IN ICU, SPOKE TO TAMIA MONTOYA, OK TO CANCEL WHAT THEY NEVER DID AND UPDATE IT NOW Performed By: #### L 501.080 #### [facility] [address] [place], [address] CREAT,SERUM Normal 0.70-1.20 [facility] Comment on above: Result Comment: NEVE R DRAWN WHILE IN ICU, SPOKE TO TAMIA MONTOYA, OK TO CANCEL WHAT THEY NEVER DID AND UPDATE IT NOW Performed By: #### L 501.080 #### [facility] [address] [place], [address] eGFR Normal >60 [facility] Comment on above: Result Comment: NEVE R DRAWN WHILE IN ICU, SPOKE TO TAMIA MONTOYA, OK TO CANCEL WHAT THEY NEVER DID AND UPDATE IT NOW Performed By: #### L 501.080 #### [facility] [address] [place], [address] GAP Normal 5-15 [facility] Comment on above: Result Comment: NEVE R DRAWN WHILE IN ICU, SPOKE TO TAMIA MONTOYA, OK TO CANCEL WHAT THEY NEVER DID AND UPDATE IT NOW Performed By: #### L 501.080 #### [facility] [address] [place], [address] GLU Normal 70-99 [facility] Comment on above: Result Comment: NEVE R DRAWN WHILE IN ICU, SPOKE TO TAMIA MONTOYA, OK TO CANCEL WHAT THEY NEVER DID AND UPDATE IT NOW Performed By: #### L 501.080 #### [facility] [address] [place], [address] Potassium Normal 3.3-5.1 [facility] Comment on above: Result Comment: NEVE R DRAWN WHILE IN ICU, SPOKE TO TAMIA MONTOYA, OK TO CANCEL WHAT THEY NEVER DID AND UPDATE IT NOW Performed By: #### L 501.080 #### [facility] [address] [place], [address] Basic Metabolic Profile (BMP) Normal 133-145 [facility] Comment on above: Result Comment: NEVE R DRAWN WHILE IN ICU, SPOKE TO TAIMA MONTOYA, [place] TO CANCEL WHAT THEY NEVER DID AND UPDATE IT NOW Performed By: #### L 501.080 #### [facility] [address] [place], [address] BUN/CRE 11.3 RATIO Normal 10-20 [facility] Comment on above: Performed By: #### L 501.2300, L500.4100, L100.0100 #### [facility] [address] [place], [address] Calcium [Mass/Vol] 8.3 mg/dL Normal 7.6-11.0 [facility] Comment on above: Performed By: #### L 501.2300, L500.4100, L100.0100 #### [facility] [address] [place], [address] Chloride [Moles/Vol] 89 mmol/L Low 98-108 [facility] Comment on above: Performed By: #### L 501.2300, L500.4100, L100.0100 #### [facility] [address] [place], [address] CO2 [Moles/Vol] 21.4 mmol/L Normal 21.0-32.0 [facility] Comment on above: Performed By: #### L 501.2300, L500.4100, L100.0100 #### [facility] [address] [place], [address] Creatinine [Mass/Vol] 0.89 mg/dL Normal 0.70-1.20 [facility] Comment on above: Performed By: #### L 501.2300, L500.4100, L100.0100 #### [facility] [address] [place], [address] ECRCL 96.09 ml/min Normal 50-250 [facility] Comment on above: Performed By: #### L 501.2300, L500.4100, L100.0100 #### [facility] [address] [place], [address] GAP 13 Normal 5-15 [facility] Comment on above: Performed By: #### L 501.2300, L500.4100, L100.0100 #### [facility] [address] [place], [address] GFR/1.73 sq M.predicted among non-blacks MDRD (S/P/Bld) [Vol rate/Area] 92 mL/min/{1.73_m2} Normal >60 [facility] Comment on above: Result Comment: mL/m in/1.73m2 CKD-EPI Creatinine Equation (2020) Performed By: #### L 501.2300, L500.4100, L100.0100 #### [facility] [address] [place], [address] Glucose [Mass/Vol] 136 mg/dL High 70-99 [facility] Comment on above: Performed By: #### L 501.2300, L500.4100, L100.0100 #### [facility] [address] [place], [address] Potassium [Moles/Vol] 3.7 mmol/L Normal 3.3-5.1 [facility] Comment on above: Performed By: #### L 501.2300, L500.4100, L100.0100 #### [facility] [address] [place], [address] Sodium [Moles/Vol] 123 mmol/L Low 133-145 [facility] Comment on above: Performed By: #### L 501.2300, L500.4100, L100.0100 #### [facility] [address] [place], [address] Urea nitrogen [Mass/Vol] 10 mg/dL Normal 4-19 [facility] Comment on above: Performed By: #### L 501.2300, L500.4100, L100.0100 #### [facility] [address] [place], [address] BUN/CRE 12.2 RATIO Normal 10-20 [facility] Comment on above: Performed By: #### L 501.2300, L500.4100, L100.0100 #### [facility] [address] [place], [address] Calcium [Mass/Vol] 8.3 mg/dL Normal 7.6-11.0 [facility] Comment on above: Performed By: #### L 501.2300, L500.4100, L100.0100 #### [facility] [address] [place], [address] Chloride [Moles/Vol] 87 mmol/L Low 98-108 [facility] Comment on above: Performed By: #### L 501.2300, L500.4100, L100.0100 #### [facility] [address] [place], [address] CO2 [Moles/Vol] 20.1 mmol/L Low 21.0-32.0 [facility] Comment on above: Performed By: #### L 501.2300, L500.4100, L100.0100 #### [facility] [address] [place], [address] Creatinine [Mass/Vol] 0.82 mg/dL Normal 0.70-1.20 [facility] Comment on above: Performed By: #### L 501.2300, L500.4100, L100.0100 #### [facility] [address] [place], [address] ECRCL 104.29 ml/min Normal 50-250 [facility] Comment on above: Performed By: #### L 501.2300, L500.4100, L100.0100 #### [facility] [address] [place], [address] GAP 14 Normal 5-15 [facility] Comment on above: Performed By: #### L 501.2300, L500.4100, L100.0100 #### [facility] [address] [place], [address] GFR/1.73 sq M.predicted among non-blacks MDRD (S/P/Bld) [Vol rate/Area] 94 mL/min/{1.73_m2} Normal >60 [facility] Comment on above: Result Comment: mL/m in/1.73m2 CKD-EPI Creatinine Equation (2020) Performed By: #### L 501.2300, L500.4100, L100.0100 #### [facility] [address] [place], [address] Glucose [Mass/Vol] 141 mg/dL High 70-99 [facility] Comment on above: Performed By: #### L 501.2300, L500.4100, L100.0100 #### [facility] [address] [place], [address] Potassium [Moles/Vol] 3.7 mmol/L Normal 3.3-5.1 [facility] Comment on above: Performed By: #### L 501.2300, L500.4100, L100.0100 #### [facility] [address] [place], [address] Sodium [Moles/Vol] 122 mmol/L Low 133-145 [facility] Comment on above: Performed By: #### L 501.2300, L500.4100, L100.0100 #### [facility] [address] [place], [address] Urea nitrogen [Mass/Vol] 10 mg/dL Normal 4-19 [facility] Comment on above: Performed By: #### L 501.2300, L500.4100, L100.0100 #### [facility] [address] [place], [address] Basophil percentageOrdered B y: Jorge Novak on 12-31-2024 Basophils/100 WBC (Bld) 0.3 % 0-1 [facility] Bedside Glucoseon 12-31-2024 FINGERSTICK GLU 125 mg/dL High 74-106 [facility] Comment on above: Result Comment: KELBY GEMENT OF PATIENT CARE PER NURSING PROTOCOL Performed By: #### L 503.0106 #### [facility] [address] [place], [address] FINGERSTICK GLU 218 mg/dL High 74-106 [facility] Comment on above: Result Comment: KELBY GEMENT OF PATIENT CARE PER NURSING PROTOCOL Performed By: #### L 3700.3000, L3310.0000, L506.0200, L500.4050, L501.7300, L501.9520, L503.6005, L501.5200 #### [facility] [address] [place], [address] FINGERSTICK GLU 153 mg/dL High 74-106 [facility] Comment on above: Result Comment: KELBY GEMENT OF PATIENT CARE PER NURSING PROTOCOL Performed By: #### L 3700.3000, L3310.0000, L506.0200, L500.4050, L501.7300, L501.9520, L503.6005, L501.5200 #### [facility] [address] [place], [address] FINGERSTICK GLU 125 mg/dL High 74-106 [facility] Comment on above: Result Comment: KELBY GEMENT OF PATIENT CARE PER NURSING PROTOCOL Performed By: #### L 501.080 #### [facility] [address] [place], [address] FINGERSTICK GLU 129 mg/dL High 74-106 [facility] Comment on above: Result Comment: KELBY GEMENT OF PATIENT CARE PER NURSING PROTOCOL Performed By: #### L 501.080 #### [facility] [address] [place], [address] CBC W/Diff, Automatedon 10-0 8-2024 Absolute Lymph 1.34 X10 3/uL Normal 0.83-4.51 [facility] Comment on above: Performed By: #### L 501.2300, L500.4100, L100.0100 #### [facility] [address] [place], [address] Absolute Neut 12.0 X10 3/uL High 2.0-7.7 [facility] Comment on above: Performed By: #### L 501.2300, L500.4100, L100.0100 #### [facility] [address] [place], [address] Basophils/100 WBC (Bld) 0.3 % Normal 0-1 [facility] Comment on above: Performed By: #### L 501.2300, L500.4100, L100.0100 #### [facility] Laboratory [address] [place], [address] Eosinophils/100 WBC (Bld) 0.2 % Normal 0-5 [facility] Comment on above: Performed By: #### L 501.2300, L500.4100, L100.0100 #### [facility] Laboratory [address] [place], [address] Erythrocyte distribution width (RBC) [Ratio] 11.8 % Normal 11.6-14.6 [facility] Comment on above: Performed By: #### L 501.2300, L500.4100, L100.0100 #### [facility] Laboratory [address] [place], [address] Hematocrit (Bld) [Volume fraction] 39.2 % Low 40-54 [facility] Comment on above: Performed By: #### L 501.2300, L500.4100, L100.0100 #### [facility] Laboratory [address] [place], [address] Hemoglobin (Bld) [Mass/Vol] 13.9 g/dL Normal 13.0-16.5 [facility] Comment on above: Performed By: #### L 501.2300, L500.4100, L100.0100 #### [facility] Laboratory [address] [place], [address] IG% 0.500 Normal 0.0-0.9 [facility] Comment on above: Result Comment: IG% - Immature Granulocytes (promyelocytes, myelocytes and metamyelocytes) > 1% indicates that a LEFT SHIFT is Present. Performed By: #### L 501.2300, L500.4100, L100.0100 #### [facility] Laboratory [address] [place], [address] Lymphocytes/100 WBC (Bld) 8.9 % Low 19-41 [facility] Comment on above: Performed By: #### L 501.2300, L500.4100, L100.0100 #### [facility] Laboratory [address] [place], [address] MCH (RBC) [Entitic mass] 29.5 pg Normal 27.0-32.0 [facility] Comment on above: Performed By: #### L 501.2300, L500.4100, L100.0100 #### [facility] Laboratory [address] [place], [address] MCHC (RBC) [Mass/Vol] 35.5 g/dL Normal 32-36 [facility] Comment on above: Performed By: #### L 501.2300, L500.4100, L100.0100 #### [facility] Laboratory [address] [place], [address] MCV (RBC) [Entitic vol] 83.2 fL Normal 80-94 [facility] Comment on above: Performed By: #### L 501.2300, L500.4100, L100.0100 #### [facility] Laboratory [address] [place], [address] Monocytes/100 WBC (Bld) 10.1 % High 0-10 [facility] Comment on above: Performed By: #### L 501.2300, L500.4100, L100.0100 #### [facility] Laboratory [address] [place], [address] Neutrophils/100 WBC (Bld) 80.0 % High 47-70 [facility] Comment on above: Performed By: #### L 501.2300, L500.4100, L100.0100 #### [facility] Laboratory [address] [place], [address] Nucleated RBC (Bld) [#/Vol] 0 10*3/uL Normal 0-5 [facility] Comment on above: Performed By: #### L 501.2300, L500.4100, L100.0100 #### [facility] Laboratory [address] [place], [address] Platelet mean volume (Bld) [Entitic vol] 8.8 fL Normal 6.2-12.0 [facility] Comment on above: Performed By: #### L 501.2300, L500.4100, L100.0100 #### [facility] Laboratory [address] [place], [address] Platelets (Bld) [#/Vol] 314 10*3/uL Normal 150-450 [facility] Comment on above: Performed By: #### L 501.2300, L500.4100, L100.0100 #### [facility] Laboratory [address] [place], [address] RBC (Bld) [#/Vol] 4.71 10*6/uL Normal 4.6-6.2 [facility] Comment on above: Performed By: #### L 501.2300, L500.4100, L100.0100 #### [facility] Laboratory [address] [place], [address] RDW SD 35.7 fl Normal 35.1-43.9 [facility] Comment on above: Performed By: #### L 501.2300, L500.4100, L100.0100 #### [facility] Laboratory [address] [place], [address] WBC (Bld) [#/Vol] 15.0 10*3/uL High 4.4-11.0 [facility] Comment on above: Performed By: #### L 501.2300, L500.4100, L100.0100 #### [facility] Laboratory [address] [place], [address] Calculated very low density lipoprotein (VLDL) cholesterol measurementOrdered By: Jorge Novak on 12-31-2024 Calculated very low density lipoprotein (VLDL) cholesterol measurement 21 mg/dL 5-40 [facility] Comprehensive Metabolic Prof ilon 12-31-2024 Albumin [Mass/Vol] 4.1 g/dL Normal 3.4-4.8 [facility] Comment on above: Performed By: #### L 3700.3000, L3310.0000, L506.0200, L500.4050, L501.7300, L501.9520, L503.6005, L501.5200 #### [facility] Laboratory [address] [place], [address] Albumin/Globulin [Mass ratio] 1.6 {ratio} Normal 0.9-2.4 [facility] Comment on above: Performed By: #### L 3700.3000, L3310.0000, L506.0200, L500.4050, L501.7300, L501.9520, L503.6005, L501.5200 #### [facility] Laboratory [address] [place], [address] ALK PHOS 74 U/L Normal 40-129 [facility] Comment on above: Performed By: #### L 3700.3000, L3310.0000, L506.0200, L500.4050, L501.7300, L501.9520, L503.6005, L501.5200 #### [facility] Laboratory [address] [place], [address] ALT [Catalytic activity/Vol] 26 U/L Normal <=46 [facility] Comment on above: Performed By: #### L 3700.3000, L3310.0000, L506.0200, L500.4050, L501.7300, L501.9520, L503.6005, L501.5200 #### [facility] Laboratory [address] [place], [address] AST [Catalytic activity/Vol] 56 U/L High <=37 [facility] Comment on above: Performed By: #### L 3700.3000, L3310.0000, L506.0200, L500.4050, L501.7300, L501.9520, L503.6005, L501.5200 #### [facility] Laboratory [address] [place], [address] Bilirubin [Mass/Vol] 0.49 mg/dL Normal 0.00-1.30 [facility] Comment on above: Performed By: #### L 3700.3000, L3310.0000, L506.0200, L500.4050, L501.7300, L501.9520, L503.6005, L501.5200 #### [facility] Laboratory [address] [place], [address] BUN/CRE 11.2 RATIO Normal 10-20 [facility] Comment on above: Performed By: #### L 3700.3000, L3310.0000, L506.0200, L500.4050, L501.7300, L501.9520, L503.6005, L501.5200 #### [facility] Laboratory [address] [place], [address] Calcium [Mass/Vol] 8.4 mg/dL Normal 7.6-11.0 [facility] Comment on above: Performed By: #### L 3700.3000, L3310.0000, L506.0200, L500.4050, L501.7300, L501.9520, L503.6005, L501.5200 #### [facility] Laboratory [address] [place], [address] Chloride [Moles/Vol] 89 mmol/L Low 98-108 [facility] Comment on above: Performed By: #### L 3700.3000, L3310.0000, L506.0200, L500.4050, L501.7300, L501.9520, L503.6005, L501.5200 #### [facility] Laboratory [address] [place], [address] CO2 [Moles/Vol] 18.4 mmol/L Low 21.0-32.0 [facility] Comment on above: Performed By: #### L 3700.3000, L3310.0000, L506.0200, L500.4050, L501.7300, L501.9520, L503.6005, L501.5200 #### [facility] Laboratory [address] [place], [address] Creatinine [Mass/Vol] 0.86 mg/dL Normal 0.70-1.20 [facility] Comment on above: Performed By: #### L 3700.3000, L3310.0000, L506.0200, L500.4050, L501.7300, L501.9520, L503.6005, L501.5200 #### [facility] Laboratory [address] [place], [place], [phone] ([phone]) ECRCL 99.44 ml/min Normal 50-250 [facility] Comment on above: Performed By: #### L 3700.3000, L3310.0000, L506.0200, L500.4050, L501.7300, L501.9520, L503.6005, L501.5200 #### [facility] Laboratory [address] [place], [place], [phone] (274) GAP 15 Normal 5-15 [facility] Comment on above: Performed By: #### L 3700.3000, L3310.0000, L506.0200, L500.4050, L501.7300, L501.9520, L503.6005, L501.5200 #### [facility] Laboratory [address] [place], [place], [phone] (718) GFR/1.73 sq M.predicted among non-blacks MDRD (S/P/Bld) [Vol rate/Area] 93 mL/min/{1.73_m2} Normal >60 [facility] Comment on above: Result Comment: mL/m in/1.73m2 CKD-EPI Creatinine Equation (2020) Performed By: #### L 3700.3000, L3310.0000, L506.0200, L500.4050, L501.7300, L501.9520, L503.6005, L501.5200 #### [facility] Laboratory [address] [place], [address] Globulin (S) [Mass/Vol] 2.5 g/dL Normal 2.2-4.2 [facility] Comment on above: Performed By: #### L 3700.3000, L3310.0000, L506.0200, L500.4050, L501.7300, L501.9520, L503.6005, L501.5200 #### [facility] Laboratory [address] [place], [address] Glucose [Mass/Vol] 130 mg/dL High 70-99 [facility] Comment on above: Performed By: #### L 3700.3000, L3310.0000, L506.0200, L500.4050, L501.7300, L501.9520, L503.6005, L501.5200 #### [facility] Laboratory [address] [place], [address] Potassium [Moles/Vol] 3.7 mmol/L Normal 3.3-5.1 [facility] Comment on above: Performed By: #### L 3700.3000, L3310.0000, L506.0200, L500.4050, L501.7300, L501.9520, L503.6005, L501.5200 #### [facility] Laboratory [address] [place], [address] Sodium [Moles/Vol] 123 mmol/L Low 133-145 [facility] Comment on above: Performed By: #### L 3700.3000, L3310.0000, L506.0200, L500.4050, L501.7300, L501.9520, L503.6005, L501.5200 #### [facility] Laboratory [address] [place], [place], [phone] T PROT 6.6 g/dL Normal 5.9-8.4 [facility] Comment on above: Performed By: #### L 3700.3000, L3310.0000, L506.0200, L500.4050, L501.7300, L501.9520, L503.6005, L501.5200 #### [facility] Laboratory [address] [place], [place], [phone] Urea nitrogen [Mass/Vol] 10 mg/dL Normal 4-19 [facility] Comment on above: Performed By: #### L 3700.3000, L3310.0000, L506.0200, L500.4050, L501.7300, L501.9520, L503.6005, L501.5200 #### [facility] Laboratory [address] [place], [place], [id number] Electrocardiogram reportOrde red By: Sawyer Buck on 12-31-2024 EKG study [facility] Work Phone: Eosinophil percentageOrdered By: Jorge Novak on 12-31-2024 Eosinophils/100 WBC (Bld) 0.2 % 0-5 [facility] Immature granulocytes/100 WB C Auto (Bld)Ordered By: Jorge Novak on 12-31-2024 Immature granulocytes/100 WBC (Bld) 0.500 % 0.0-0.9 [facility] L509.6002on 12-31-2024 CORTISOL 12.70 ug/dL High 2.68-10.50 [facility] Comment on above: Performed By: #### L 3700.3000, L3310.0000, L506.0200, L500.4050, L501.7300, L501.9520, L503.6005, L501.5200 #### [facility] Laboratory [address] [place], [address] LDL calc ser/plasOrdered By: Jorge Novak on 12-31-2024 Cholesterol in LDL [Mass/Vol] 39 mg/dL [facility] Lipid Profileon 12-31-2024 CHOL:HDL 2.24 Normal [facility] Comment on above: Performed By: #### L 501.2300, L500.4100, L100.0100 #### [facility] Laboratory [address] [place], [address] Cholesterol [Mass/Vol] 108 mg/dL Normal <=200 [facility] Comment on above: Result Comment: Chol esterol level, Desirable <200 mg/dL Borderline high cholesterol 200-239 mg/dL High cholesterol >=240 mg/dL Recommendations of the NCEP Adult Treatment Panel for the following risk-cutoff thresholds for the [place] population. Performed By: #### L 501.2300, L500.4100, L100.0100 #### [facility] Laboratory [address] [place], [address] Cholesterol in HDL [Mass/Vol] 48 mg/dL Normal [facility] Comment on above: Result Comment: Belen onal Cholesterol Education Program (NCEP) guidelines: <40 mg/dL: Low HDL-cholesterol (major risk factor for CHD) >= 60 mg/dL: High HDL-cholesterol (negative risk factor for CHD) HDL-cholesterol is affected by a number of factors, e.g. smoking, exercise, hormones, sex and age. Performed By: #### L 501.2300, L500.4100, L100.0100 #### [facility] Laboratory [address] [place], [address] Cholesterol in LDL [Mass/Vol] 39 mg/dL Normal [facility] Comment on above: Result Comment: Bord zxbzmo=564-178 mg/dL Higher Fqny=146 mg/dL or greater Friedwald Equation for LDL-C Performed By: #### L 501.2300, L500.4100, L100.0100 #### [facility] Laboratory [address] [place], [address] Cholesterol in VLDL [Mass/Vol] 21 mg/dL Normal 5-40 [facility] Comment on above: Performed By: #### L 501.2300, L500.4100, L100.0100 #### [facility] Laboratory [address] [place], [address] Triglyceride [Mass/Vol] 104 mg/dL Normal [facility] Comment on above: Result Comment: The drugs N-Acetylcysteine and Metamizole may falsely depress this assay. Normal range: <150 mg/dL Borderline High: 150-199 mg/dL High: 200-499 mg/dL Very High: >500 mg/dL Performed By: #### L 501.2300, L500.4100, L100.0100 #### [facility] Laboratory [address] [place], [address] Magnesiumon 12-31-2024 Magnesium [Mass/Vol] 1.6 mg/dL Normal 1.5-2.2 [facility] Comment on above: Performed By: #### L 501.080 #### [facility] Laboratory [address] [place], [address] Monocyte percentageOrdered B y: Jorge Novak on 12-31-2024 Monocytes/100 WBC (Bld) 10.1 % High 0-10 [facility] Neutrophil percentageOrdered By: Jorge Novak on 12-31-2024 Neutrophils/100 WBC (Bld) 80.0 % High 47-70 [facility] Osmolality urOrdered By: Sonu Novak on 12-31-2024 Osmolality (U) [Osmolality] 247 mOsm/KG >50 [facility] Osmolality, Urineon 01-01-20 25 OSMOLALITY,UR 247 mOsm/KG Normal [facility] Comment on above: Result Comment: Normal Urine Reference Ranges Random: 50 - 1200 mOsm/kg H20 depending on fluid intake Random: >850 mOsm/kg after 12 hour fluid restriction 24 hour: 300 - 900 mOsm/kg H2O Performed By: #### L 3700.3000, L3310.0000, L506.0200, L500.4050, L501.7300, L501.9520, L503.6005, L501.5200 #### [facility] Laboratory [address] [place], [address] Phosphoruson 12-31-2024 Phosphate [Mass/Vol] 3.0 mg/dL Normal 2.7-4.5 [facility] Comment on above: Performed By: #### L 501.2300, L500.4100, L100.0100 #### [facility] Laboratory [address] [place], [address] Serum or plasma cholesterol in HDL measurement (mass/volume)Ordered By: Jorge Novak on 12-31-2024 Cholesterol in HDL [Mass/Vol] 48 mg/dL >40 [facility] Serum or plasma cholesterol measurement (mass/volume)Ordered By: Jorge Novak on 12-31-2024 Cholesterol [Mass/Vol] 108 mg/dL <201 [facility] Serum or plasma cortisol chip surement (mass/volume)Ordered By: Alice Mckeon on 12-31-2024 Cortisol [Mass/Vol] 12.70 ug/dL High 2.68-10.50 [facility] Serum or plasma uric acid me asurement (mass/volume)Ordered By: Alice Mckeon on 12-31-2024 Urate [Mass/Vol] 5.0 mg/dL 3.5-7.2 [facility] Thyroid Stim Hormone (TSH)on 12-31-2024 TSH 2.890 uIU/mL Normal 0.300-4.200 [facility] Comment on above: Performed By: #### L 501.080 #### [facility] Laboratory [address] [place], [address] Uric Acidon 12-31-2024 URIC 5.0 mg/dL Normal 3.5-7.2 [facility] Comment on above: Result Comment: The drugs N-Acetylcysteine and Metamizole may falsely depress this assay. Performed By: #### L 3700.3000, L3310.0000, L506.0200, L500.4050, L501.7300, L501.9520, L503.6005, L501.5200 #### [facility] Laboratory [address] [place], [address] Urine Cultureon 12-31-2024 URC Culture exhibits no growth. Normal [facility] Comment on above: Performed By: #### L 3700.3000, L3310.0000, L506.0200, L500.4050, L501.7300, L501.9520, L503.6005, L501.5200 #### [facility] Laboratory [address] [place], [address] Urine Sodiumon 12-31-2024 Sodium (U) [Moles/Vol] 73 mmol/L Normal Not Establ. [facility] Comment on above: Performed By: #### L 501.080 #### [facility] Laboratory [address] [place] [place], [address] Urine sodium measurement (mo les/volume)Ordered By: Alice Mckeon on 12-31-2024 Sodium (U) [Moles/Vol] 73 mmol/L Not Establ. [facility] 12 Lead EKGon 12-30-2024 12 Lead EKG [facility] Services [address] [place] [address] 12 Lead EKG 12/30/24 1605 MR#: [id number] Acct: [id number] Name: NAYLA BENNETT Rep #: [id number] : 1955 69 From: Sawyer Buck MD Attending Dr: Dr. Alice Mckeon, Status: ADM I N Ordering Dr: Nestor Stauffer DO Date: 12/30/24 Location: [facility] Sex: M C Admitted: 12/30/24 Test Reason [...] ECG Confirmed by SAWYER BUCK MD ([id number]), supervising editor news reel ANA PARHAM ([id number]) on 12/31/2024 1:28:20 PM Referred By: SHELDON Confirmed By: SAWYER BUCK MD 12/31/24 1328 Date Sawyer Buck MD CC: Dr. Eddi Lynn MD; Dr. Alice Mckeon DO; Dr. Nestor Stauffer DO Signed Normal [facility] Abdomen/Pelvis W IV Cont ONL Yon 12-30-2024 Abdomen/Pelvis W IV Cont ONLY [facility] Imaging Services [address] [place] [id number] Abdomen/Pelvis W IV Cont ONLY MR#: [id number] Acct: [id number] Name: NAYLA BENNETT Rep #: [id number] : 1955 M 69 From: Radha Tom PCP: Dr. Eddi Lynn MD Status: REG ER Study: Abdomen/Pelvis W IV Cont ONLY Date of Exam: Exam# [id number] Ordering Dr: Nestor Stauffer DO PROCEDURE: ABDOMEN/PELVIS [...] Otherwise no acute intra-abdominal process. Reading Location: [id number] CC: Dr. Eddi Lynn MD; Dr. Nestor Stauffer DO Tire Spotter: Signed Normal [facility] Absolute lymphocyte countOrd ered By: Nestor Stauffer on 12-30-2024 Lymphocytes Auto (Unsp spec) [#/Vol] 3.04 10*3/uL 0.83-4.51 [facility] Absolute neutrophil countOrd ered By: Nestor Stauffer on 12-30-2024 Neutrophils (Bld) [#/Vol] 8.3 10*3/uL High 2.0-7.7 [facility] Activated partial thrombopla stin time (aPTT) in platelet poor plasma by coagulation aOrdered By: Nestor Stauffer on 12-30-2024 aPTT Coag (PPP) [Time] 23.2 s Low 24.1-36.2 [facility] Anion gap in Serum or Plasma Ordered By: Nestor Stauffer on 12-30-2024 Anion gap [Moles/Vol] 17 mmol/L High 5-15 [facility] Automated lymphocyte count a s percentage of total leukocytesOrdered By: Nestor Stauffer on 12-30-2024 Lymphocytes/100 WBC Auto (Unsp spec) 23.5 % 19-41 [facility] BUN/creatinine ratioOrdered By: Nestor Stauffer on 12-30-2024 Urea nitrogen/Creatinine [Mass ratio] 12.8 mg/mg 10-20 [facility] Basophil percentageOrdered B y: Nestor Stauffer on 10-07-2025 Basophils/100 WBC (Bld) 0.4 % 0-1 [facility] Bilirubin Test strip Ql (U)O rdered By: Nestor Stauffer on 12-30-2024 Bilirubin Ql (U) Negative Negative [facility] Bilirubin, totalOrdered By: Jorge Novak on 12-30-2024 Bilirubin [Mass/Vol] 0.49 mg/dL 0.00-1.30 [facility] Bilirubin, totalOrdered By: Nestor Stauffer on 12-30-2024 Bilirubin [Mass/Vol] 0.36 mg/dL 0.00-1.30 [facility] Blood cultureOrdered By: Ana Stauffer on 12-30-2024 Bacteria identified Cx Nom (Bld) No growth in 5 days. [facility] Bacteria identified Cx Nom (Bld) No growth in 5 days. [facility] Bacteria identified Cx Nom (Bld) No growth in 5 days. [facility] Bacteria identified Cx Nom (Bld) No growth in 5 days. [facility] Brain/Head without Contrasto n 12-30-2024 Brain/Head without Contrast [facility] Imaging Services [address] [place] [address] Brain/Head without Contrast MR#: [id number] Acct: [id number] Name: NAYLA BENNETT Rep #: [id number] : 1955 M 69 From: Otilio Rudolph MD PCP: Dr. Eddi Lynn MD Status: [facility] ER Study: Brain/Head without Contrast Date of Exam: 10/17 Exam# [id number] Ordering Dr: Nestor Stauffer DO PROCEDURE: BRAIN/HEAD [...] IMPRESSION: No acute intracranial abnormality. Reading Location: [id number] CC: Dr. Eddi Lynn MD; Dr. Nestor Stauffer DO Tire Spotter: Signed Normal [facility] [facility] CBC W/Diff, Automatedon 10-0 Absolute Lymph 3.04 X10 3/uL Normal 0.83-4.51 [facility] Comment on above: Performed By: #### L 501.2300, L500.4100, L100.0100 #### [facility] Laboratory [address] [place], [address] Absolute Neut 8.3 X10 3/uL High 2.0-7.7 [facility] Comment on above: Performed By: #### L 501.2300, L500.4100, L100.0100 #### [facility] [address] [place], [address] Basophils/100 WBC (Bld) 0.4 % Normal 0-1 [facility] Comment on above: Performed By: #### L 501.2300, L500.4100, L100.0100 #### [facility] [address] [place], [address] Eosinophils/100 WBC (Bld) 0.9 % Normal 0-5 [facility] Comment on above: Performed By: #### L 501.2300, L500.4100, L100.0100 #### [facility] [address] [place], [address] Erythrocyte distribution width (RBC) [Ratio] 11.9 % Normal 11.6-14.6 [facility] Comment on above: Performed By: #### L 501.2300, L500.4100, L100.0100 #### [facility] [address] [place], [address] Hematocrit (Bld) [Volume fraction] 36.5 % Low 40-54 [facility] Comment on above: Performed By: #### L 501.2300, L500.4100, L100.0100 #### [facility] [address] [place], [address] Hemoglobin (Bld) [Mass/Vol] 13.6 g/dL Normal 13.0-16.5 [facility] Comment on above: Performed By: #### L 501.2300, L500.4100, L100.0100 #### [facility] [address] [place], [address] IG% 0.500 Normal 0.0-0.9 [facility] Comment on above: Result Comment: IG% - Immature Granulocytes (promyelocytes, myelocytes and metamyelocytes) > 1% indicates that a LEFT SHIFT is Present. Performed By: #### L 501.2300, L500.4100, L100.0100 #### [facility] [address] [place], [address] Lymphocytes/100 WBC (Bld) 23.5 % Normal 19-41 [facility] Comment on above: Performed By: #### L 501.2300, L500.4100, L100.0100 #### [facility] [address] [place], [address] MCH (RBC) [Entitic mass] 30.8 pg Normal 27.0-32.0 [facility] Comment on above: Performed By: #### L 501.2300, L500.4100, L100.0100 #### [facility] [address] [place], [address] MCHC (RBC) [Mass/Vol] 37.3 g/dL High 32-36 [facility] Comment on above: Performed By: #### L 501.2300, L500.4100, L100.0100 #### [facility] [address] [place], [address] MCV (RBC) [Entitic vol] 82.6 fL Normal 80-94 [facility] Comment on above: Performed By: #### L 501.2300, L500.4100, L100.0100 #### [facility] [address] [place], [address] Monocytes/100 WBC (Bld) 10.5 % High 0-10 [facility] Comment on above: Performed By: #### L 501.2300, L500.4100, L100.0100 #### [facility] [address] [place], [address] Neutrophils/100 WBC (Bld) 64.2 % Normal 47-70 [facility] Comment on above: Performed By: #### L 501.2300, L500.4100, L100.0100 #### [facility] [address] [place], [address] Nucleated RBC (Bld) [#/Vol] 0 10*3/uL Normal 0-5 [facility] Comment on above: Performed By: #### L 501.2300, L500.4100, L100.0100 #### [facility] [address] [place], [address] Platelet mean volume (Bld) [Entitic vol] 8.8 fL Normal 6.2-12.0 [facility] Comment on above: Performed By: #### L 501.2300, L500.4100, L100.0100 #### [facility] Laboratory [address] [place], [address] Platelets (Bld) [#/Vol] 287 10*3/uL Normal 150-450 [facility] Comment on above: Performed By: #### L 501.2300, L500.4100, L100.0100 #### [facility] [address] [place], [address] RBC (Bld) [#/Vol] 4.42 10*6/uL Low 4.6-6.2 [facility] Comment on above: Performed By: #### L 501.2300, L500.4100, L100.0100 #### [facility] [address] [place], [address] RDW SD 35.8 fl Normal 35.1-43.9 [facility] Comment on above: Performed By: #### L 501.2300, L500.4100, L100.0100 #### [facility] [address] [place], [address] WBC (Bld) [#/Vol] 12.9 10*3/uL High 4.4-11.0 [facility] Comment on above: Performed By: #### L 501.2300, L500.4100, L100.0100 #### [facility] [address] [place], [address] CO2 (BldV) [Moles/Vol]Ordere d By: Jorge Novak on 12-30-2024 CO2 [Moles/Vol] 25 mmol/L 23-33 [facility] Carbon dioxide, total [Moles /volume] in Central venous bloodOrdered By: Nestor Stauffer on 12-30-2024 CO2 [Moles/Vol] 20.9 mmol/L Low 21.0-32.0 [facility] Chloride assayOrdered By: Tye Stauffer on 12-30-2024 Chloride [Moles/Vol] 81 mmol/L Low 98-108 [facility] Comprehensive Metabolic Prof ilon 12-30-2024 Albumin [Mass/Vol] 4.5 g/dL Normal 3.4-4.8 [facility] Comment on above: Performed By: #### L 501.2300, L500.4100, L100.0100 #### [facility] Laboratory [address] [place], [address] Albumin/Globulin [Mass ratio] 1.8 {ratio} Normal 0.9-2.4 [facility] Comment on above: Performed By: #### L 501.2300, L500.4100, L100.0100 #### [facility] Laboratory [address] [place], [address] ALK PHOS 80 U/L Normal 40-129 [facility] Comment on above: Performed By: #### L 501.2300, L500.4100, L100.0100 #### [facility] Laboratory [address] [place], [address] ALT [Catalytic activity/Vol] 27 U/L Normal <=46 [facility] Comment on above: Performed By: #### L 501.2300, L500.4100, L100.0100 #### [facility] [address] [place], [address] AST [Catalytic activity/Vol] 57 U/L High <=37 [facility] Comment on above: Performed By: #### L 501.2300, L500.4100, L100.0100 #### [facility] Laboratory [address] [place], [address] Bilirubin [Mass/Vol] 0.36 mg/dL Normal 0.00-1.30 [facility] Comment on above: Performed By: #### L 501.2300, L500.4100, L100.0100 #### [facility] Laboratory [address] [place], [address] BUN/CRE 12.8 RATIO Normal 10-20 [facility] Comment on above: Performed By: #### L 501.2300, L500.4100, L100.0100 #### [facility] [address] [place], [address] Calcium [Mass/Vol] 9.2 mg/dL Normal 7.6-11.0 [facility] Comment on above: Performed By: #### L 501.2300, L500.4100, L100.0100 #### [facility] Laboratory [address] [place], [address] Chloride [Moles/Vol] 81 mmol/L Low 98-108 [facility] Comment on above: Performed By: #### L 501.2300, L500.4100, L100.0100 #### [facility] [address] [place], [address] CO2 [Moles/Vol] 20.9 mmol/L Low 21.0-32.0 [facility] Comment on above: Performed By: #### L 501.2300, L500.4100, L100.0100 #### [facility] Laboratory [address] [place], [address] Creatinine [Mass/Vol] 0.93 mg/dL Normal 0.70-1.20 [facility] Comment on above: Performed By: #### L 501.2300, L500.4100, L100.0100 #### [facility] Laboratory [address] [place], [address] ECRCL 92.33 ml/min Normal 50-250 [facility] Comment on above: Performed By: #### L 501.2300, L500.4100, L100.0100 #### [facility] Laboratory [address] [place], [address] GAP 17 High 5-15 [facility] Comment on above: Performed By: #### L 501.2300, L500.4100, L100.0100 #### [facility] Laboratory [address] [place], [address] GFR/1.73 sq M.predicted among non-blacks MDRD (S/P/Bld) [Vol rate/Area] 88 mL/min/{1.73_m2} Normal >60 [facility] Comment on above: Result Comment: mL/m in/1.73m2 CKD-EPI Creatinine Equation (2020) Performed By: #### L 501.2300, L500.4100, L100.0100 #### [facility] Laboratory [address] [place], [address] Globulin (S) [Mass/Vol] 2.4 g/dL Normal 2.2-4.2 [facility] Comment on above: Performed By: #### L 501.2300, L500.4100, L100.0100 #### [facility] Laboratory [address] [place], [address] Glucose [Mass/Vol] 105 mg/dL High 70-99 [facility] Comment on above: Performed By: #### L 501.2300, L500.4100, L100.0100 #### [facility] Laboratory [address] [place], [address] Potassium [Moles/Vol] 4.1 mmol/L Normal 3.3-5.1 [facility] Comment on above: Performed By: #### L 501.2300, L500.4100, L100.0100 #### [facility] [address] [place], [address] Sodium [Moles/Vol] 119 mmol/L Invalid Interpretation Code 133-145 [facility] Comment on above: Result Comment: Crit ical Result(s) Called BEATRICE at: 1700 by: VICENTE??Results read back by same. Performed By: #### L 501.2300, L500.4100, L100.0100 #### [facility] [address] [place], [address] T PROT 6.9 g/dL Normal 5.9-8.4 [facility] Comment on above: Performed By: #### L 501.2300, L500.4100, L100.0100 #### [facility] Laboratory [address] [place], [address] Urea nitrogen [Mass/Vol] 12 mg/dL Normal 4-19 [facility] Comment on above: Performed By: #### L 501.2300, L500.4100, L100.0100 #### [facility] Laboratory [address] [place], [address] Emergency Department Summary on 12-30-2024 Emergency Department Summary [facility] Medical Records Department [address] [place] [address] Emergency Department Summary 12/30/24 MR#: [id number] Acct: [id number] Name: NAYLA BENNETT Rep #: [id number] : 1955 69 From: Nestor Stauffer DO [...] are unsure what antibiotics he is on. [facility] Medical History Developmental non-verbal disorder Vitamin B12 deficiency Epilepsy, unspecified, not intractable, without status epilepticus Schizophrenia Seizure disorder Hyperlipidemia HTN (hypertension) Diabetes mellitus, type II Home Medications ???Medication ???Instructions ???Recorded ???Last Taken ???Type loratadine 10 mg tablet 10 mg PO DAILY allergies 07/16/16 Unknown History omega 5-roa-mlk-fish oil 300 1 ea PO BID 07/16/16 [...] previous surgery Social History housing: other details: [facility] Smoking Status: Never smoker Electronic Cigarette Use: [...] Pulse O (more content not included)... Normal [facility] Eosinophil percentageOrdered By: Nestor Stauffer on 12-30-2024 Eosinophils/100 WBC (Bld) 0.9 % 0-5 [facility] Erythrocyte distribution wid th ratioOrdered By: Nestor Stauffer on 12-30-2024 Erythrocyte distribution width (RBC) [Ratio] 11.9 % 11.6-14.6 [facility] Erythrocyte distribution wid th standard deviationOrdered By: Nestor Stauffer on 12-30-2024 Erythrocyte distribution width (RBC) [Ratio] 35.8 fl 35.1-43.9 [facility] Folate [Moles/volume] in Ser um or PlasmaOrdered By: Jorge Novak on 12-30-2024 Folate [Moles/Vol] 10.80 ng/mL 4.60-34.80 [facility] Folates,Serum (Folic Acid)on 12-30-2024 FOLATES,SERUM 10.80 ng/mL Normal 4.60-34.80 [facility] Comment on above: Result Comment: Hemo lysis, Results will be affected, Requires Recollection. Performed By: #### L 3700.3000, L3310.0000, L506.0200, L500.4050, L501.7300, L501.9520, L503.6005, L501.5200 #### [facility] Laboratory [address] [place], [address] Glomerular filtration rate ( GFR) estimation/1.73 sq m using serum, plasma, or whole bOrdered By: Nestor Stauffer on 12-30-2024 GFR/1.73 sq M.predicted among non-blacks MDRD (S/P/Bld) [Vol rate/Area] 88 mL/min/{1.73_m2} >60 [facility] Comment on above: mL/min/1.73m2 CKD-EP I Creatinine Equation (2020) H AND P Exam - [place] 12-30-2024 H&P Exam - Hospitalist [facility] Medical Records Department [address] [place] [address] H P Exam - Hospitalist 12/30/242046 MR#: [id number] Acct: [id number] Name: NAYLA BENNETT Rep #: [id number] : 1955 69 From: Jorge Herrera DO PCP: Dr. Eddi Lynn MD Status:ADM IN Location: ICU ICU01-1 [facility] - General General Date of Admission: [...] UTI; on unknown antibiotic who presents to [facility] ER after staff at his senior care noted multiple falls. As indicated above Mr. Bennett is not a reliable historian as he is nonverbal at baseline. Therefore, information was gathered from chart, medical staff and computer. According to the records EMS was activated today after the staff at his senior care noted multiple falls. The ER physician informing [...] is expected to extend beyond 2 midnights. [facility] Medical History (Updated 12/30/24 @ 21:[address] Jorge Herrera, DO) Developmental non-verbal disorder Vitamin B12 deficiency Epilepsy, unspecified, not intractable, without status epilepticus Schizophrenia Seizure disorder Hyperlipidemia HTN (hypertension) Diabetes mellitus, type II Home Medications ???Medication ???Instructions ???Recorded ???Last Taken ???Type loratadine 10 mg tablet 10 mg PO DAILY allergies 07/16/16 Unknown History omega 1-teg-ajf-fish oil 300 1 ea PO BID 07/16/16 [...] 12/30/24 2 (more content not included)... Normal [facility] Hematocrit Auto (Bld) [Volum e fraction]Ordered By: Nestor Stauffer on 12-30-2024 Hematocrit (Bld) [Volume fraction] 36.5 % Low 40-54 [facility] Hemoglobin measurementOrdere d By: Nestor Stauffer on 12-30-2024 Hemoglobin (Bld) [Mass/Vol] 13.6 g/dL 13.0-16.5 [facility] Immature granulocytes/100 WB C Auto (Bld)Ordered By: Nestor Stauffer on 12-30-2024 Immature granulocytes/100 WBC (Bld) 0.500 % 0.0-0.9 [facility] Comment on above: IG% - Immature Granu locytes (promyelocytes, myelocytes and metamyelocytes) > 1% indicates that a LEFT SHIFT is Present. International normalized rat io (INR) calculationOrdered By: Nestor Stauffer on 12-30-2024 INR Coag (Bld) [Relative time] 1.0 {INR} [facility] Ketones Test strip Ql (U)Ord ered By: Nestor Stauffer on 12-30-2024 Ketones Ql (U) Negative Negative [facility] Laboratory - Chemistry and C hemistry - challengeOrdered By: Nestor Stauffer on 12-30-2024 AST [Catalytic activity/Vol] 57 U/L High <38 [facility] Lactic Acidon 12-30-2024 Lactate [Moles/Vol] mmol/L Normal 0.0-2.0 [facility] Comment on above: Order Comment: Y Performed By: #### L 3700.3000, L3310.0000, L506.0200, L500.4050, L501.7300, L501.9520, L503.6005, L501.5200 #### [facility] Laboratory [address] [place], [address] Lactate [Moles/Vol] 1.4 mmol/L Normal 0.0-2.0 [facility] Comment on above: Performed By: #### L 503.0106 #### [facility] Laboratory [address] [place], [address] Lactate [Moles/Vol] 5.1 mmol/L Invalid Interpretation Code 0.0-2.0 [facility] Comment on above: Order Comment: Y Result Comment: Crit ical Result(s) Called BEATRICE at: 1700 by: VICENTE??Results read back by same. Performed By: #### L 501.2300, L500.4100, L100.0100 #### [facility] Laboratory [address] [place], [address] Lactic acid measurementOrder ed By: Nestor Stauffer on 12-30-2024 Lactate [Moles/Vol] 1.4 mmol/L 0.0-2.0 [facility] LevetiracetamOrdered By: Sonu Novak on 12-30-2024 levETIRAcetam [Mass/Vol] 18.4 ug/mL 10.0-40.0 [facility] MCV (mean corpuscular volume ) determinationOrdered By: Nestor Stauffer on 12-30-2024 MCV (RBC) [Entitic vol] 82.6 fL 80-94 [facility] Magnesium measurement (mass/ volume)Ordered By: Jorge Novak on 12-30-2024 Magnesium (Unsp spec) [Mass/Vol] 1.6 mg/dL 1.5-2.2 [facility] Mean corpuscular hemoglobin (MCH) determinationOrdered By: Nestor Stauffer on 12-30-2024 MCH (RBC) [Entitic mass] 30.8 pg 27.0-32.0 [facility] Mean corpuscular hemoglobin concentration (MCHC) determinationOrdered By: Nestor Stauffer on 12-30-2024 MCHC (RBC) [Mass/Vol] 37.3 g/dL High 32-36 [facility] Mean platelet volume determi nationOrdered By: Nestor Stauffer on 12-30-2024 Platelet mean volume (Bld) [Entitic vol] 8.8 fL 6.2-12.0 [facility] Microscopic analysis of urin e for red blood cells (RBC)Ordered By: Nestor Stauffer on 12-30-2024 Microscopic analysis of urine for red blood cells (RBC) 0-5 SEEN /hpf 0-5 [facility] Monocyte percentageOrdered B y: Nestor Stauffer on 12-30-2024 Monocytes/100 WBC (Bld) 10.5 % High 0-10 [facility] Mucus LM Ql (Urine sed)Order ed By: Nestor Stauffer on 12-30-2024 Mucus Ql (Urine sed) 0 SEEN /hpf [facility] Neutrophil percentageOrdered By: Nestor Stauffer on 12-30-2024 Neutrophils/100 WBC (Bld) 64.2 % 47-70 [facility] Nitrite Test strip Ql (U)Ord ered By: Nestor Stauffer on 12-30-2024 Nitrite Ql (U) Negative Negative [facility] No Panel InformationOrdered By: Jorge Novak on 12-30-2024 56 U/L High <38 [facility] YEIMI [facility] Not entered [facility] Room Air [facility] Nucleated red blood cell per centageOrdered By: Nestor Stauffer on 12-30-2024 Nucleated RBC/100 WBC (Bld) [Ratio] 0 % 0-5 [facility] Osmolality, Serumon 12-31-19 25 OSMOLALITY,SER 256 mOsm/KG Low 280-301 [facility] Comment on above: Performed By: #### L 3700.3000, L3310.0000, L506.0200, L500.4050, L501.7300, L501.9520, L503.6005, L501.5200 #### [facility] Laboratory [address] [place], [address] Partial Thromboplast Timeon 12-30-2024 aPTT Coag (Bld) [Time] 23.2 s Low 24.1-36.2 [facility] Comment on above: Performed By: #### L 501.2300, L500.4100, L100.0100 #### [facility] Laboratory [address] [place], [address] Platelet countOrdered By: Tye Stauffer on 12-30-2024 Platelets (Bld) [#/Vol] 287 10*3/uL 150-450 [facility] Potassium measurement (mass/ volume)Ordered By: Nestor Stauffer on 12-30-2024 Potassium (Unsp spec) [Mass/Vol] 4.1 mmol/L 3.3-5.1 [facility] Protein Test strip Ql (U)Ord ered By: Nestor Stauffer on 12-30-2024 Protein Ql (U) 30 mg/dl High Negative [facility] Prothrombin Time w/INRon INR Coag (PPP) [Relative time] 1.0 {INR} Normal [facility] Comment on above: Performed By: #### L 501.2300, L500.4100, L100.0100 #### [facility] Laboratory [address] [place], [address] PT Coag (PPP) [Time] 13.3 s Normal 11.7-14.9 [facility] Comment on above: Performed By: #### L 501.2300, L500.4100, L100.0100 #### [facility] [address] [place], [address] Prothrombin timeOrdered By: Nestor Stauffer on 12-30-2024 PT Coag (PPP) [Time] 13.3 s 11.7-14.9 [facility] RBC Auto (Bld) [#/Vol]Ordere d By: Nestor Stauffer on 12-30-2024 RBC (Bld) [#/Vol] 4.42 10*6/uL Low 4.6-6.2 [facility] Serum creatinine measurement (mass/volume)Ordered By: Nestor Stauffer on 12-30-2024 Creatinine [Mass/Vol] 0.93 mg/dL 0.70-1.20 [facility] Serum globulin measurementOr dered By: Jorge Novak on 12-30-2024 Globulin (S) [Mass/Vol] 2.5 g/dL 2.2-4.2 [facility] Serum globulin measurementOr dered By: Nestor Stauffer on 12-30-2024 Globulin (S) [Mass/Vol] 2.4 g/dL 2.2-4.2 [facility] Serum glucose measurement (m ass/volume)Ordered By: Nestor Stauffer on 12-30-2024 Glucose [Mass/Vol] 105 mg/dL High 70-99 [facility] Serum or plasma alanine medrano otransferase (ALT) measurementOrdered By: Jorge Novak on 12-30-2024 ALT [Catalytic activity/Vol] 26 U/L <47 [facility] Serum or plasma alanine medrano otransferase (ALT) measurementOrdered By: Nestor Stauffer on 12-30-2024 ALT [Catalytic activity/Vol] 27 U/L <47 [facility] Serum or plasma albumin jung urement (mass/volume)Ordered By: Jorge Novak on 12-30-2024 Albumin [Mass/Vol] 4.1 g/dL 3.4-4.8 [facility] Serum or plasma albumin jung urement (mass/volume)Ordered By: Nestor Stauffer on 12-30-2024 Albumin [Mass/Vol] 4.5 g/dL 3.4-4.8 [facility] Serum or plasma albumin/glob ulin mass ratioOrdered By: Jorge Novak on 12-30-2024 Albumin/Globulin [Mass ratio] 1.6 {ratio} 0.9-2.4 [facility] Serum or plasma albumin/glob ulin mass ratioOrdered By: Nestor Stauffer on 12-30-2024 Albumin/Globulin [Mass ratio] 1.8 {ratio} 0.9-2.4 [facility] Serum or plasma alkaline ally sphatase measurementOrdered By: Jorge Novak on 12-30-2024 ALP [Catalytic activity/Vol] 74 U/L 40-129 [facility] Serum or plasma alkaline ally sphatase measurementOrdered By: Nestor Stauffer on 12-30-2024 ALP [Catalytic activity/Vol] 80 U/L 40-129 [facility] Serum or plasma calcium jung urement (mass/volume)Ordered By: Nestor Stauffer on 12-30-2024 Calcium [Mass/Vol] 9.2 mg/dL 7.6-11.0 [facility] Serum or plasma urea nitroge n measurement (mass/volume)Ordered By: Nestor Stauffer on 12-30-2024 Urea nitrogen [Mass/Vol] 12 mg/dL 4-19 [facility] Sodium levelOrdered By: Cisco Stauffer on 12-30-2024 Sodium [Moles/Vol] 119 mmol/L Critically low 133-145 [facility] Comment on above: Critical Result(s) Joe BARRON at: 1700 by: VICENTE Results read back by same. Spine Cervical without Contr ason 12-30-2024 Spine Cervical without Contras [facility] Imaging Services [address], [place] [id number] Spine Cervical without Contras MR#: [id number] Acct: [id number] Name: NAYLA BENNETT Rep #: [id number] : 1955 M 69 From: Otilio Rudolph MD PCP: Dr. Eddi Lynn MD Status: REG ER Study: Spine Cervical without Contras Date of Exam: 1 Exam# [id number] Ordering Dr: Nestor Stauffer DO PROCEDURE: SPINE [...] No acute osseous abnormalities. Spondylosis. Reading Location: [address] CC: Dr. Eddi Lynn MD; Dr. Nestor Stauffer DO Tire Spotter: Signed Normal [facility] Squamous epithelial cells de tection in urine sediment by light microscopyOrdered By: Nestor Stauffer on 12-30-2024 Epithelial cells.squamous LM Ql (Urine sed) 0 SEEN /hpf 0-5 [facility] TSH DL <= 0.005 mIU/L QnOrde red By: Jorge Novak on 12-30-2024 TSH Qn 2.890 uIU/mL 0.300-4.200 [facility] Total proteinOrdered By: Sonu Novak on 12-30-2024 Protein [Mass/Vol] 6.6 g/dL 5.9-8.4 [facility] Total proteinOrdered By: Ana Stauffer on 12-30-2024 Protein [Mass/Vol] 6.9 g/dL 5.9-8.4 [facility] Urinalysis, Completeon 12-30 RBC 0-5 SEEN Normal 0-5 [facility] Comment on above: Order Comment: Y Performed By: #### L 3700.3000, L3310.0000, L506.0200, L500.4050, L501.7300, L501.9520, L503.6005, L501.5200 #### [facility] Laboratory [address] [place], [address] BACTERIA 0 SEEN Normal None Seen [facility] Comment on above: Order Comment: Y Performed By: #### L 3700.3000, L3310.0000, L506.0200, L500.4050, L501.7300, L501.9520, L503.6005, L501.5200 #### [facility] Laboratory [address] [place], [address] EPI,SQUAMOUS 0 SEEN Normal 0-5 [facility] Comment on above: Order Comment: Y Performed By: #### L 3700.3000, L3310.0000, L506.0200, L500.4050, L501.7300, L501.9520, L503.6005, L501.5200 #### [facility] Laboratory [address] [place], [address] Mucus Ql (Urine sed) 0 SEEN Normal [facility] Comment on above: Order Comment: Y Performed By: #### L 3700.3000, L3310.0000, L506.0200, L500.4050, L501.7300, L501.9520, L503.6005, L501.5200 #### [facility] Laboratory [address] [place], [address] WBC 0 SEEN Normal 0-5 [facility] Comment on above: Order Comment: Y Performed By: #### L 3700.3000, L3310.0000, L506.0200, L500.4050, L501.7300, L501.9520, L503.6005, L501.5200 #### [facility] Laboratory [address] [place], [place], [id number] Urine clarityOrdered By: Ana Stauffer on 12-30-2024 Clarity (U) Clear Clear [facility] Urine color determinationOrd ered By: Nestor Stauffer on 12-30-2024 Color (U) Yellow Yellow [facility] Urine cultureOrdered By: Ana Stauffer on 12-30-2024 Bacteria identified Cx Nom (U) Culture exhibits no growth. [facility] Bacteria identified Cx Nom (U) Culture exhibits no growth. [facility] Urine glucose detectionOrder ed By: Nestor Stauffer on 12-30-2024 Glucose Ql (U) 250 mg/dl High Normal [facility] Urine leukocyte esterase det ection by dipstickOrdered By: Nestor Stauffer on 12-30-2024 Leukocyte esterase Test strip Ql (U) Negative Negative [facility] Urine pHOrdered By: Nestor bajwa on 12-30-2024 pH (U) 6.0 [pH] 5.0 - 8.0 [facility] Urine sediment bacteria coun t by microscopy (number/high power field)Ordered By: Nestor Stauffer on 12-30-2024 Bacteria LM.HPF (Urine sed) [#/Area] 0 /[HPF] None Seen [facility] Urine specific gravity measu rementOrdered By: Nestor Stauffer on 12-30-2024 Specific gravity (U) [Rel density] 1.010 1.002-1.030 [facility] Urine urobilinogen measureme ntOrdered By: Nestor Stauffer on 12-30-2024 Urobilinogen Ql (U) Normal mg/dl Normal [facility] Venous Blood Gason 5 Blood Gas Type YEIMI Normal [facility] Comment on above: Performed By: #### L 501.2300, L500.4100, L100.0100 #### [facility] Laboratory [address] [place], [place], [id number] CO2 [Moles/Vol] 25 mmol/L Normal 23-33 [facility] Comment on above: Performed By: #### L 501.2300, L500.4100, L100.0100 #### [facility] Laboratory [address] [place], [address] HCO3 (Bld) [Moles/Vol] 24 mmol/L Normal 22-26 [facility] Comment on above: Performed By: #### L 501.2300, L500.4100, L100.0100 #### [facility] Laboratory [address] [place], [address] O2 Delivery Dev Room Air Normal [facility] Comment on above: Performed By: #### L 501.2300, L500.4100, L100.0100 #### [facility] Laboratory [address] [place], [address] SITE Not entered Normal [facility] Comment on above: Performed By: #### L 501.2300, L500.4100, L100.0100 #### [facility] Laboratory [address] [place], [address] VBG BE 0 mmol/L Normal -1.0-3.5 [facility] Comment on above: Performed By: #### L 501.2300, L500.4100, L100.0100 #### [facility] Laboratory [address] [place], [address] VBG pCO2 35.4 mmHg Low 41-51 [facility] Comment on above: Performed By: #### L 501.2300, L500.4100, L100.0100 #### [facility] Laboratory [address] [place], [address] VBG pH 7.45 High 7.32-7.42 [facility] Comment on above: Performed By: #### L 501.2300, L500.4100, L100.0100 #### [facility] Laboratory [address] [place], [address] VBG PO2 52 mmHg High 25-40 [facility] Comment on above: Performed By: #### L 501.2300, L500.4100, L100.0100 #### [facility] Laboratory [address] [place], [address] VBG SO2 88 High 50-70 [facility] Comment on above: Performed By: #### L 501.2300, L500.4100, L100.0100 #### [facility] Laboratory [address] [place], [address] Venous blood base excess chip surementOrdered By: Jorge Novak on 12-30-2024 Base excess Calc (BldV) [Moles/Vol] 0 mmol/L -1.0-3.5 [facility] Venous blood bicarbonate chip surementOrdered By: Jorge Novak on 12-30-2024 HCO3 (Bld) [Moles/Vol] 24 mmol/L 22-26 [facility] Venous blood pH measurementO rdered By: Jorge Novak on 12-30-2024 pH (BldV) 7.45 [pH] High 7.32-7.42 [facility] Venous blood partial pressur e of carbon dioxide measurementOrdered By: Jorge Novak on 12-30-2024 CO2 (BldV) [Partial pressure] 35.4 mm[Hg] Low 41-51 [facility] Venous blood partial pressur e of oxygen measurementOrdered By: Jorge Novak on 12-30-2024 Oxygen (BldV) [Partial pressure] 52 mm[Hg] High 25-40 [facility] Vitamin B12on 12-30-2024 Cobalamin (Vitamin B12) [Mass/Vol] 789 pg/mL Normal 180-914 [facility] Comment on above: Performed By: #### L 503.0106 #### [facility] Laboratory [address] [place], [address] Vitamin B12 ser/plasOrdered By: Jorge Novak on 12-30-2024 Cobalamin (Vitamin B12) [Mass/Vol] 789 pg/mL 180-914 [facility] White blood cell (WBC) count Ordered By: Nestor Stauffer on 12-30-2024 WBC (Bld) [#/Vol] 12.9 10*3/uL High 4.4-11.0 [facility] White blood cell countOrdere d By: Nestor Stauffer on 12-30-2024 White blood cell count 0 SEEN /hpf 0-5 [facility] Urine Cultureon 12-26-2024 [facility] Order Date: 12/25/24 Order Info: 630-4 - CUUR Below infection level. Mixed Gram Positive Organisms [place] Count 1000-10,000 MIXC Mixed contaminants. Submit a new specimen if indicated. Normal [facility] Comment on above: Performed By: #### L 3700.3000, L3310.0000, L506.0200, L500.4050, L501.7300, L501.9520, L503.6005, L501.5200 #### [facility] Laboratory [address] [place], [place], [phone] (727) Hemoglobin A1con 12-25-2024 HbA1c (Bld) [Mass fraction] 6.1 % High <=5.6 [facility] Comment on above: Result Comment: Norm al < 5.7 % Prediabetic 5.7 - 6.4 % Diabetic >or= 6.5 % Please note range changes. Performed By: #### L 501.080 #### [facility] Laboratory [address] [place], [place], [id number] (531) Hemoglobin A1c percentageOrd ered By: Eddi Lynn on 12-25-2024 HbA1c (Bld) [Mass fraction] 6.1 % High <5.7 [facility] Comment on above: Normal < 5.7 % Predi abetic 5.7 - 6.4 % Diabetic >or= 6.5 % Please note range changes. TSH DL <= 0.005 mIU/L QnOrde red By: Eddi Lynn on 12-25-2024 TSH Qn 1.780 uIU/mL 0.300-4.200 [facility] Thyroid Stim Hormone (TSH)on 12-25-2024 TSH 1.780 uIU/mL Normal 0.300-4.200 [facility] Comment on above: Performed By: #### L 501.080 #### [facility] Laboratory [address] [place], [address] Urine cultureOrdered By: Beckie Lynn on 12-25-2024 Bacteria identified Cx Nom (U) Positive Abnormal [facility] Bacteria identified Cx Nom (U) Positive Abnormal [facility] Emergency Department Summary on 12-22-2024 Emergency Department Summary [facility] Medical Records Department [address] [place] [address] Emergency Department Summary 12/22/24 MR#: [id number] Acct: [id number] Name: NAYLA BENNETT Rep #: [id number] : 1955 69 From: Chet Grover MD PCP: Dr. Eddi Lynn MD Status:REG ER Location: ED HPI History of Present Illness Chief Complaint: Hypertension Detail of Chief Complaint: Patient presents with elevated blood pressure. He repeats what is asked of Informant: other (Attendee from senior care) Onset/Context/Timing Onset: Today (Apparently had elevated blood [...] similar symptoms: No Recent Illness/Hospitalizat ion: Yes [facility] Medical History Developmental non-verbal disorder Vitamin B12 deficiency Epilepsy, unspecified, not intractable, without status epilepticus Schizophrenia Seizure disorder Hyperlipidemia HTN (hypertension) Diabetes mellitus, type II Home Medications ???Medication ???Instructions ???Recorded ???Last Taken ???Type loratadine 10 mg tablet 10 mg PO DAILY allergies 07/16/16 Unknown History omega 4-wzv-jwx-fish oil 300 1 ea PO BID 07/16/16 [...] previous surgery Social History housing: other details: [facility] Smoking Status: Never smoker Electronic Cigarette Use: [...] to auscultation (more content not included)... Normal [facility] Absolute lymphocyte countOrd ered By: Lory Wolff on 12-19-2024 Lymphocytes Auto (Unsp spec) [#/Vol] 2.33 10*3/uL 0.83-4.51 [facility] Absolute neutrophil countOrd ered By: Lory Wolff on 12-19-2024 Neutrophils (Bld) [#/Vol] 6.8 10*3/uL 2.0-7.7 [facility] Anion gap in Serum or Plasma Ordered By: Lory Wolff on 12-19-2024 Anion gap [Moles/Vol] 14 mmol/L 5-15 [facility] Automated lymphocyte count a s percentage of total leukocytesOrdered By: Lory Wolff on 12-19-2024 Lymphocytes/100 WBC Auto (Unsp spec) 22.8 % -41 [facility] BUN/creatinine ratioOrdered By: Lory Wolff on 12-19-2024 Urea nitrogen/Creatinine [Mass ratio] 15.0 mg/mg 10-20 [facility] Comment on above: Previous reported re sult: 14.4 RATIOEdited by: AUTOINS on 12/19/24:1527 AMENDED REPORT 12/19/24 152 BUN/CRE previously reported as: 14.4 RATIO Basic Metabolic Profile (BMP )on 12-19-2024 BUN/CRE 15.0 RATIO Normal 10-20 [facility] Comment on above: Result Comment: AMENDED REPORT 12/19/241526 BUN/CRE previously reported as: 14.4 RATIO Performed By: #### L 3700.3000, L3310.0000, L506.0200, L500.4050, L501.7300, L501.9520, L503.6005, L501.5200 #### [facility] Laboratory [address] [place], [address] Urea nitrogen [Mass/Vol] 12 mg/dL Normal 4-19 [facility] Comment on above: Performed By: #### L 3700.3000, L3310.0000, L506.0200, L500.4050, L501.7300, L501.9520, L503.6005, L501.5200 #### [facility] Laboratory [address] [place], [place], [id number] Basophil percentageOrdered B y: Lory Wolff on 12-19-2024 Basophils/100 WBC (Bld) 0.7 % 0-1 [facility] Bilirubin Test strip Ql (U)O rdered By: Lory Wolff on 12-19-2024 Bilirubin Ql (U) Negative Negative [facility] Brain/Head without Contrasto n 12-19-2024 Brain/Head without Contrast [facility] Imaging Services [address], [place] [address] Brain/Head without Contrast MR#: [id number] Acct: [id number] Name: TRAVISNAYLA MIROSLAVA Rep #: [id number] : 1955 M 69 From: Lindy Bettencourt MD PCP: Dr. Eddi Lynn MD Status: REG ER Study: Brain/Head without Contrast Date of Exam: 11/25 09/17 Exam# [id number] Ordering Dr: Lory Wolff DO PROCEDURE: BRAIN/HEAD [...] IMPRESSION: No acute intracranial abnormality. Reading Location: [facility] CC: Dr. Eddi Lynn MD; Dr. Lory Wolff DO Tire Spotter: Signed Normal [facility] CBC W/Diff, Automatedon 11-25 Absolute Lymph 2.33 X10 3/uL Normal 0.83-4.51 [facility] Comment on above: Performed By: #### L 3700.3000, L3310.0000, L506.0200, L500.4050, L501.7300, L501.9520, L503.6005, L501.5200 #### [facility] Laboratory [address] [place], [address] Absolute Neut 6.8 X10 3/uL Normal 2.0-7.7 [facility] Comment on above: Performed By: #### L 3700.3000, L3310.0000, L506.0200, L500.4050, L501.7300, L501.9520, L503.6005, L501.5200 #### [facility] Laboratory [address] [place], [address] Basophils/100 WBC (Bld) 0.7 % Normal 0-1 [facility] Comment on above: Performed By: #### L 3700.3000, L3310.0000, L506.0200, L500.4050, L501.7300, L501.9520, L503.6005, L501.5200 #### [facility] Laboratory [address] [facility] [place], [address] Eosinophils/100 WBC (Bld) 1.1 % Normal 0-5 [facility] Comment on above: Performed By: #### L 3700.3000, L3310.0000, L506.0200, L500.4050, L501.7300, L501.9520, L503.6005, L501.5200 #### [facility] Laboratory [address] [place], [address] Erythrocyte distribution width (RBC) [Ratio] 12.2 % Normal 11.6-14.6 [facility] Comment on above: Performed By: #### L 3700.3000, L3310.0000, L506.0200, L500.4050, L501.7300, L501.9520, L503.6005, L501.5200 #### [facility] Laboratory [address] [place], [address] Hematocrit (Bld) [Volume fraction] 39.5 % Low 40-54 [facility] Comment on above: Performed By: #### L 3700.3000, L3310.0000, L506.0200, L500.4050, L501.7300, L501.9520, L503.6005, L501.5200 #### [facility] Laboratory [address] [place], [address] Hemoglobin (Bld) [Mass/Vol] 13.6 g/dL Normal 13.0-16.5 [facility] Comment on above: Performed By: #### L 3700.3000, L3310.0000, L506.0200, L500.4050, L501.7300, L501.9520, L503.6005, L501.5200 #### [facility] Laboratory [address] [place], [address] IG% 0.400 Normal 0.0-0.9 [facility] Comment on above: Result Comment: IG% - Immature Granulocytes (promyelocytes, myelocytes and metamyelocytes) > 1% indicates that a LEFT SHIFT is Present. Performed By: #### L 3700.3000, L3310.0000, L506.0200, L500.4050, L501.7300, L501.9520, L503.6005, L501.5200 #### [facility] Laboratory [address] [place], [address] Lymphocytes/100 WBC (Bld) 22.8 % Normal 19-41 [facility] Comment on above: Performed By: #### L 3700.3000, L3310.0000, L506.0200, L500.4050, L501.7300, L501.9520, L503.6005, L501.5200 #### [facility] Laboratory [address] [place], [address] MCH (RBC) [Entitic mass] 29.8 pg Normal 27.0-32.0 [facility] Comment on above: Performed By: #### L 3700.3000, L3310.0000, L506.0200, L500.4050, L501.7300, L501.9520, L503.6005, L501.5200 #### [facility] Laboratory [address] [place], [address] MCHC (RBC) [Mass/Vol] 34.4 g/dL Normal 32-36 [facility] Comment on above: Performed By: #### L 3700.3000, L3310.0000, L506.0200, L500.4050, L501.7300, L501.9520, L503.6005, L501.5200 #### [facility] Laboratory [address] [place], [address] MCV (RBC) [Entitic vol] 86.6 fL Normal 80-94 [facility] Comment on above: Performed By: #### L 3700.3000, L3310.0000, L506.0200, L500.4050, L501.7300, L501.9520, L503.6005, L501.5200 #### [facility] Laboratory [address] [place], [address] Monocytes/100 WBC (Bld) 8.1 % Normal 0-10 [facility] Comment on above: Performed By: #### L 3700.3000, L3310.0000, L506.0200, L500.4050, L501.7300, L501.9520, L503.6005, L501.5200 #### [facility] Laboratory [address] [place], [address] Neutrophils/100 WBC (Bld) 66.9 % Normal 47-70 [facility] Comment on above: Performed By: #### L 3700.3000, L3310.0000, L506.0200, L500.4050, L501.7300, L501.9520, L503.6005, L501.5200 #### [facility] Laboratory [address] [place], [address] Nucleated RBC (Bld) [#/Vol] 0 10*3/uL Normal 0-5 [facility] Comment on above: Performed By: #### L 3700.3000, L3310.0000, L506.0200, L500.4050, L501.7300, L501.9520, L503.6005, L501.5200 #### [facility] Laboratory [address] [place], [address] Platelet mean volume (Bld) [Entitic vol] 9.4 fL Normal 6.2-12.0 [facility] Comment on above: Performed By: #### L 3700.3000, L3310.0000, L506.0200, L500.4050, L501.7300, L501.9520, L503.6005, L501.5200 #### [facility] Laboratory [address] [place], [address] Platelets (Bld) [#/Vol] 288 10*3/uL Normal 150-450 [facility] Comment on above: Performed By: #### L 3700.3000, L3310.0000, L506.0200, L500.4050, L501.7300, L501.9520, L503.6005, L501.5200 #### [facility] Laboratory [address] [place], [address] RBC (Bld) [#/Vol] 4.56 10*6/uL Low 4.6-6.2 [facility] Comment on above: Performed By: #### L 3700.3000, L3310.0000, L506.0200, L500.4050, L501.7300, L501.9520, L503.6005, L501.5200 #### [facility] Laboratory [address] [place], [address] RDW SD 38.7 fl Normal 35.1-43.9 [facility] Comment on above: Performed By: #### L 3700.3000, L3310.0000, L506.0200, L500.4050, L501.7300, L501.9520, L503.6005, L501.5200 #### [facility] Laboratory [address] [place], [address] WBC (Bld) [#/Vol] 10.2 10*3/uL Normal 4.4-11.0 [facility] Comment on above: Performed By: #### L 3700.3000, L3310.0000, L506.0200, L500.4050, L501.7300, L501.9520, L503.6005, L501.5200 #### [facility] Laboratory [address] [place], [address] Carbon dioxide, total [Moles /volume] in Central venous bloodOrdered By: Lory Wolff on 12-19-2024 CO2 [Moles/Vol] 22.4 mmol/L 21.0-32.0 [facility] Chloride assayOrdered By: Hollis Wolff on 12-19-2024 Chloride [Moles/Vol] 97 mmol/L Low 98-108 [facility] Emergency Department Summary on 12-19-2024 Emergency Department Summary [facility] Medical Records Department [address] [place] [address] Emergency Department Summary 12/19/24 MR#: [id number] Acct: [id number] Name: NAYLA BENNETT Rep #: [id number] : 1955 69 From: Lory Wolff DO [...] recommendation primary care doctor for further evaluation. [facility] Medical History (Updated 12/19/24 @ 16:[address] Lory Wolff, DO) Developmental non-verbal disorder Vitamin B12 deficiency Epilepsy, unspecified, not intractable, without status epilepticus Schizophrenia Seizure disorder Hyperlipidemia HTN (hypertension) Diabetes mellitus, type II Home Medications ???Medication ???Instructions ???Recorded ???Last Taken ???Type loratadine 10 mg tablet 10 mg PO DAILY PRN allergies 07/16 Unknown History omega 4-awt-pls-fish oil 300 1 ea PO BID 07/16/16 [...] previous surgery Social History housing: other details: [facility] Smoking Status: Never smoker Electronic Cigarette Use: [...] CN's II-XII (more content not included)... Normal [facility] Eosinophil percentageOrdered By: Lory Wolff on 12-19-2024 Eosinophils/100 WBC (Bld) 1.1 % 0-5 [facility] Erythrocyte distribution wid th ratioOrdered By: Lory Wolff on 12-19-2024 Erythrocyte distribution width (RBC) [Ratio] 12.2 % 11.6-14.6 [facility] Erythrocyte distribution wid th standard deviationOrdered By: Lory Wolff on 12-19-2024 Erythrocyte distribution width (RBC) [Ratio] 38.7 fl 35.1-43.9 [facility] Glomerular filtration rate ( GFR) estimation/1.73 sq m using serum, plasma, or whole bOrdered By: Lory Wolff on 12-19-2024 GFR/1.73 sq M.predicted among non-blacks MDRD (S/P/Bld) [Vol rate/Area] 95 mL/min/{1.73_m2} >60 [facility] Comment on above: mL/min/1.73m2 CKD-EP I Creatinine Equation (2020) Hematocrit Auto (Bld) [Volum e fraction]Ordered By: Lory Wolff on 12-19-2024 Hematocrit (Bld) [Volume fraction] 39.5 % Low 40-54 [facility] Hemoglobin measurementOrdere d By: Lory Wolff on 12-19-2024 Hemoglobin (Bld) [Mass/Vol] 13.6 g/dL 13.0-16.5 [facility] Immature granulocytes/100 WB C Auto (Bld)Ordered By: Lory Wolff on 12-19-2024 Immature granulocytes/100 WBC (Bld) 0.400 % 0.0-0.9 [facility] Comment on above: IG% - Immature Granu locytes (promyelocytes, myelocytes and metamyelocytes) > 1% indicates that a LEFT SHIFT is Present. Ketones Test strip Ql (U)Ord ered By: Lory Wolff on 12-19-2024 Ketones Ql (U) Negative Negative [facility] MCV (mean corpuscular volume ) determinationOrdered By: Lory Wolff on 12-19-2024 MCV (RBC) [Entitic vol] 86.6 fL 80-94 [facility] Mean corpuscular hemoglobin (MCH) determinationOrdered By: Lory Wolff on 12-19-2024 MCH (RBC) [Entitic mass] 29.8 pg 27.0-32.0 [facility] Mean corpuscular hemoglobin concentration (MCHC) determinationOrdered By: Lory Wolff on 12-19-2024 MCHC (RBC) [Mass/Vol] 34.4 g/dL 32-36 [facility] Mean platelet volume determi nationOrdered By: Lory Wolff on 12-19-2024 Platelet mean volume (Bld) [Entitic vol] 9.4 fL 6.2-12.0 [facility] Microscopic analysis of urin e for red blood cells (RBC)Ordered By: Lory Wolff on 12-19-2024 Microscopic analysis of urine for red blood cells (RBC) 0-5 SEEN /hpf 0-5 [facility] Monocyte percentageOrdered B y: Lory Wolff on 12-19-2024 Monocytes/100 WBC (Bld) 8.1 % 0-10 [facility] Mucus LM Ql (Urine sed)Order ed By: Lory Wolff on 12-19-2024 Mucus Ql (Urine sed) 0 SEEN /hpf [facility] Neutrophil percentageOrdered By: Lory Wolff on 12-19-2024 Neutrophils/100 WBC (Bld) 66.9 % 47-70 [facility] Nitrite Test strip Ql (U)Ord ered By: Lory Wolff on 12-19-2024 Nitrite Ql (U) Negative Negative [facility] Nucleated red blood cell per centageOrdered By: Lory Wolff on 12-19-2024 Nucleated RBC/100 WBC (Bld) [Ratio] 0 % 0-5 [facility] Platelet countOrdered By: Hollis Wolff on 12-19-2024 Platelets (Bld) [#/Vol] 288 10*3/uL 150-450 [facility] Potassium measurement (mass/ volume)Ordered By: Lory Wolff on 12-19-2024 Potassium (Unsp spec) [Mass/Vol] 4.2 mmol/L 3.3-5.1 [facility] Protein Test strip Ql (U)Ord ered By: Lory Wolff on 12-19-2024 Protein Ql (U) Negative Negative [facility] RBC Auto (Bld) [#/Vol]Ordere d By: Lory Wolff on 12-19-2024 RBC (Bld) [#/Vol] 4.56 10*6/uL Low 4.6-6.2 [facility] Serum creatinine measurement (mass/volume)Ordered By: Lory Wolff on 12-19-2024 Creatinine [Mass/Vol] 0.81 mg/dL 0.70-1.20 [facility] Serum glucose measurement (m ass/volume)Ordered By: Lory Wolff on 12-19-2024 Glucose [Mass/Vol] 197 mg/dL High 70-99 [facility] Serum or plasma calcium jung urement (mass/volume)Ordered By: Lory Wolff on 12-19-2024 Calcium [Mass/Vol] 8.8 mg/dL 7.6-11.0 [facility] Serum or plasma urea nitroge n measurement (mass/volume)Ordered By: Lory Wolff on 12-19-2024 Urea nitrogen [Mass/Vol] 12 mg/dL 4-19 [facility] Sodium levelOrdered By: Rafiq Wolff on 12-19-2024 Sodium [Moles/Vol] 133 mmol/L 133-145 [facility] Squamous epithelial cells de tection in urine sediment by light microscopyOrdered By: Lory Wolff on 12-19-2024 Epithelial cells.squamous LM Ql (Urine sed) 0-5 SEEN /hpf 0-5 [facility] Urinalysis, Completeon 12-19 EPI,SQUAMOUS 0-5 SEEN Normal 0-5 [facility] Comment on above: Order Comment: CLEAN CATCH Performed By: #### L 501.2300, L500.4100, L100.0100 #### [facility] Laboratory [address] [place], [address] RBC 0-5 SEEN Normal 0-5 [facility] Comment on above: Order Comment: CLEAN CATCH Performed By: #### L 501.2300, L500.4100, L100.0100 #### [facility] [address] [place], [address] WBC 0-5 SEEN Normal 0-5 [facility] Comment on above: Order Comment: CLEAN CATCH Performed By: #### L 501.2300, L500.4100, L100.0100 #### [facility] Laboratory [address] [place], [address] BACTERIA 0 SEEN Normal None Seen [facility] Comment on above: Order Comment: CLEAN CATCH Performed By: #### L 501.2300, L500.4100, L100.0100 #### [facility] Laboratory [address] [place], [address] Mucus Ql (Urine sed) 0 SEEN Normal [facility] Comment on above: Order Comment: CLEAN CATCH Performed By: #### L 501.2300, L500.4100, L100.0100 #### [facility] [address] [place], [address] Urine clarityOrdered By: Shantel Wolff on 12-19-2024 Clarity (U) Clear Clear [facility] Urine color determinationOrd ered By: Lory Wolff on 12-19-2024 Color (U) Straw Yellow [facility] Urine glucose detectionOrder ed By: Lory Wolff on 12-19-2024 Glucose Ql (U) 250 mg/dl High Normal [facility] Urine leukocyte esterase det ection by dipstickOrdered By: Lory Wolff on 12-19-2024 Leukocyte esterase Test strip Ql (U) Negative Negative [facility] Urine pHOrdered By: Lory story on 12-19-2024 pH (U) 6.5 [pH] 5.0 - 8.0 [facility] Urine sediment bacteria coun t by microscopy (number/high power field)Ordered By: Lory Wolff on 12-19-2024 Bacteria LM.HPF (Urine sed) [#/Area] 0 /[HPF] None Seen [facility] Urine specific gravity measu rementOrdered By: Lory Wolff on 12-19-2024 Specific gravity (U) [Rel density] 1.010 1.002-1.030 [facility] Urine urobilinogen measureme ntOrdered By: Lory Wolff on 12-19-2024 Urobilinogen Ql (U) Normal mg/dl Normal [facility] White blood cell (WBC) count Ordered By: Lory Wolff on 12-19-2024 WBC (Bld) [#/Vol] 10.2 10*3/uL 4.4-11.0 [facility] White blood cell countOrdere d By: Lory Wolff on 12-19-2024 White blood cell count 0-5 SEEN /hpf 0-5 [facility] Neurology Visit Reporton Neurology Visit Report [facility] [address] [facility] [place] [address] OFFICE VISIT Date of Service: 11/26/24 MR#: [id number] Acct: [id number] Name: NAYLA BENNETT Rep #: [id number] : 1955 Provider: Dr. Vini scott MD Age/Sex: 69/M Location[place] [facility] [place] Status: Signed HPI [facility] Chief Complaint: Details: Interim History: Nayla returns for follow-up visit. He is accompanied by a caregiver from his senior care. He has a history of diabetes mellitus, [...] insufficiency: S (more content not included)... Normal [facility] PROLACTIN 4465on 10-16-2024 PROLACTIN 27.6 ng/mL High 3.6-25.2 [facility] Comment on above: Result Comment: Perf ormed at: [facility] - [facility] [address] [id number] Casting Cleaner: Pacheco Campos PhD, Phone: [phone] Performed By: #### L 785.7125, D042.6169, X194.2867 #### [facility] Laboratory [address] [place], [address] Bilirubin Test strip Ql (U)O rdered By: Aydee Willams on 10-15-2024 Bilirubin Ql (U) Negative Negative [facility] Ketones Test strip Ql (U)Ord ered By: Aydee Willams on 10-15-2024 Ketones Ql (U) Negative Negative [facility] Nitrite Test strip Ql (U)Ord ered By: Aydee Willams on 10-15-2024 Nitrite Ql (U) Negative Negative [facility] Protein Test strip Ql (U)Ord ered By: Aydee Willams on 10-15-2024 Protein Ql (U) 15 mg/dl High Negative [facility] Serum or plasma prolactin me asurement (mass/volume)Ordered By: Aydee Willams on 10-15-2024 Prolactin [Mass/Vol] 27.6 ng/mL High 3.6-25.2 [facility] Comment on above: Performed at: [place] [id number] Director: Pacheco Campos PhD, Phone: [phone] Urinalysis, Routine (Dipstic k)on 10-15-2024 BILIRUBIN URINE Negative Normal Negative [facility] Comment on above: Order Comment: CLEAN CATCH Performed By: #### L 501.2300, L500.4100, L100.0100 #### [facility] Laboratory [address] [place], [place], [id number] Clarity (U) Clear Normal Clear [facility] Comment on above: Order Comment: CLEAN CATCH Performed By: #### L 501.2300, L500.4100, L100.0100 #### [facility] Laboratory [address] [place], [address] Color (U) Yellow Normal Yellow [facility] Comment on above: Order Comment: CLEAN CATCH Performed By: #### L 501.2300, L500.4100, L100.0100 #### [facility] Laboratory [address] [place], [place], [id number] GLUCOSE, UR Normal Normal Normal [facility] Comment on above: Order Comment: CLEAN CATCH Performed By: #### L 501.2300, L500.4100, L100.0100 #### [facility] Laboratory [address] [place], [address] KETONE UR Negative Normal Negative [facility] Comment on above: Order Comment: CLEAN CATCH Performed By: #### L 501.2300, L500.4100, L100.0100 #### [facility] [address] [place], [address] LEUK ESTERASE Negative Normal Negative [facility] Comment on above: Order Comment: CLEAN CATCH Performed By: #### L 501.2300, L500.4100, L100.0100 #### [facility] [address] [place], [address] Nitrite Ql (U) Negative Normal Negative [facility] Comment on above: Order Comment: CLEAN CATCH Performed By: #### L 501.2300, L500.4100, L100.0100 #### [facility] [address] [place], [address] OCCULT BLOOD-UR Negative Normal Negative [facility] Comment on above: Order Comment: CLEAN CATCH Performed By: #### L 501.2300, L500.4100, L100.0100 #### [facility] Laboratory [address] [place], [address] pH UR 7.0 Normal 5.0 - 8.0 [facility] Comment on above: Order Comment: CLEAN CATCH Performed By: #### L 501.2300, L500.4100, L100.0100 #### [facility] Laboratory [address] [place], [address] PROT DIPSTX 15 mg/dl Abnormal Negative [facility] Comment on above: Order Comment: CLEAN CATCH Performed By: #### L 501.2300, L500.4100, L100.0100 #### [facility] Laboratory [address] [place], [address] SP.GR. DIPSTX 1.010 Normal 1.002-1.030 [facility] Comment on above: Order Comment: CLEAN CATCH Performed By: #### L 501.2300, L500.4100, L100.0100 #### [facility] Laboratory [address] [place], [address] UROBILI Normal Normal Normal [facility] Comment on above: Order Comment: CLEAN CATCH Performed By: #### L 501.2300, L500.4100, L100.0100 #### [facility] [address] [place], [address] Urine clarityOrdered By: Samanta Willams on 10-15-2024 Clarity (U) Clear Clear [facility] Urine color determinationOrd ered By: Aydee Willams on 10-15-2024 Color (U) Yellow Yellow [facility] Urine glucose detectionOrder ed By: Aydee Willams on 10-15-2024 Glucose Ql (U) Normal mg/dl Normal [facility] Urine leukocyte esterase det ection by dipstickOrdered By: Aydee Willams on 10-15-2024 Leukocyte esterase Test strip Ql (U) Negative Negative [facility] Urine pHOrdered By: Aydee Willams on 10-15-2024 pH (U) 7.0 [pH] 5.0 - 8.0 [facility] Urine specific gravity measu rementOrdered By: Aydee Willams on 10-15-2024 Specific gravity (U) [Rel density] 1.010 1.002-1.030 [facility] Urine urobilinogen measureme ntOrdered By: Aydee Willams on 10-15-2024 Urobilinogen Ql (U) Normal mg/dl Normal [facility] Hemoglobin A1con 07-15-2024 HbA1c (Bld) [Mass fraction] 6.3 % High <=5.6 [facility] Comment on above: Order Comment: Order Date: 07/10/24Order Info: [id number] - A1C Result Comment: Norm al < 5.7 % Prediabetic 5.7 - 6.4 % Diabetic >or= 6.5 % Please note range changes. Performed By: #### L 503.0106 #### [facility] [address] [place], [place], [address] Hemoglobin A1c percentageOrd ered By: Eddi Lynn on 07-15-2024 HbA1c (Bld) [Mass fraction] 6.3 % High <5.7 [facility] Comment on above: Normal < 5.7 % Predi abetic 5.7 - 6.4 % Diabetic >or= 6.5 % Please note range changes. TSH DL <= 0.005 mIU/L QnOrde red By: Eddi Lynn on 07-15-2024 TSH Qn 2.660 uIU/mL 0.300-4.200 [facility] Thyroid Stim Hormone (TSH)on 07-15-2024 TSH 2.660 uIU/mL Normal 0.300-4.200 [facility] Comment on above: Order Comment: Order Date: 07/10/24Order Info: [id number] - TSH Performed By: #### L 501.2300, L500.4100, L100.0100 #### [facility] [address] [place], [place], [address] KEPPRA (LEVETIRACETAM)on KEPPRA 27.6 ug/mL Normal 10.0-40.0 [facility] Comment on above: Result Comment: Perf ormed at: [facility] [id number] Casting Cleaner: Pacheco Campos PhD, Phone: [phone] Performed at: [facility] [address] [id number] Casting Cleaner: Vickey Romeo MD, Phone: [phone] Performed By: #### L 3700.3000, L3310.0000, L506.0200, L500.4050, L501.7300, L501.9520, L503.6005, L501.5200 #### [facility] [address] [place], [place], [address] L3700.3000on 06-20-2024 PHENobarbital [Mass/Vol] 18 ug/mL Normal 15-40 [facility] Comment on above: Result Comment: Dete ction Limit = 3 Performed By: #### L 3700.3000, L3310.0000, L506.0200, L500.4050, L501.7300, L501.9520, L503.6005, L501.5200 #### [facility] [address] [place], [address] (078) Ammoniaon 06-18-2024 Ammonia (P) [Moles/Vol] 16.1 umol/L Normal 16-60 [facility] Comment on above: Performed By: #### L 3700.3000, L3310.0000, L506.0200, L500.4050, L501.7300, L501.9520, L503.6005, L501.5200 #### [facility] [address] [place], [address] Anion gap in Serum or Plasma Ordered By: Vini Feliciano on 06-18-2024 Anion gap [Moles/Vol] 12 mmol/L 5-15 [facility] BUN/creatinine ratioOrdered By: Vini Feliciano on 06-18-2024 Urea nitrogen/Creatinine [Mass ratio] 17.6 mg/mg 10-20 [facility] Bilirubin, totalOrdered By: Vini Feliciano on 06-18-2024 Bilirubin [Mass/Vol] 0.21 mg/dL 0.00-1.30 [facility] CBC-Complete Blood Cnt No Di ffon 06-18-2024 Erythrocyte distribution width (RBC) [Ratio] 12.3 % Normal 11.6-14.6 [facility] Comment on above: Performed By: #### L 3700.3000, L3310.0000, L506.0200, L500.4050, L501.7300, L501.9520, L503.6005, L501.5200 #### [facility] [address] [place], [address] Hematocrit (Bld) [Volume fraction] 42.2 % Normal 40-54 [facility] Comment on above: Performed By: #### L 3700.3000, L3310.0000, L506.0200, L500.4050, L501.7300, L501.9520, L503.6005, L501.5200 #### [facility] [address] [place], [address] Hemoglobin (Bld) [Mass/Vol] 14.5 g/dL Normal 13.0-16.5 [facility] Comment on above: Performed By: #### L 3700.3000, L3310.0000, L506.0200, L500.4050, L501.7300, L501.9520, L503.6005, L501.5200 #### [facility] [address] [facility] [place], [address] MCH (RBC) [Entitic mass] 30.1 pg Normal 27.0-32.0 [facility] Comment on above: Performed By: #### L 3700.3000, L3310.0000, L506.0200, L500.4050, L501.7300, L501.9520, L503.6005, L501.5200 #### [facility] [address] [place], [address] MCHC (RBC) [Mass/Vol] 34.4 g/dL Normal 32-36 [facility] Comment on above: Performed By: #### L 3700.3000, L3310.0000, L506.0200, L500.4050, L501.7300, L501.9520, L503.6005, L501.5200 #### [facility] [address] [place], [address] MCV (RBC) [Entitic vol] 87.7 fL Normal 80-94 [facility] Comment on above: Performed By: #### L 3700.3000, L3310.0000, L506.0200, L500.4050, L501.7300, L501.9520, L503.6005, L501.5200 #### [facility] [address] [place], [address] Platelet mean volume (Bld) [Entitic vol] 10.0 fL Normal 6.2-12.0 [facility] Comment on above: Performed By: #### L 3700.3000, L3310.0000, L506.0200, L500.4050, L501.7300, L501.9520, L503.6005, L501.5200 #### [facility] [address] [place], [address] Platelets (Bld) [#/Vol] 266 10*3/uL Normal 150-450 [facility] Comment on above: Performed By: #### L 3700.3000, L3310.0000, L506.0200, L500.4050, L501.7300, L501.9520, L503.6005, L501.5200 #### [facility] [facility] [address] [place], [address] RBC (Bld) [#/Vol] 4.81 10*6/uL Normal 4.6-6.2 [facility] Comment on above: Performed By: #### L 3700.3000, L3310.0000, L506.0200, L500.4050, L501.7300, L501.9520, L503.6005, L501.5200 #### [facility] [address] [place], [address] RDW SD 39.8 fl Normal 35.1-43.9 [facility] Comment on above: Performed By: #### L 3700.3000, L3310.0000, L506.0200, L500.4050, L501.7300, L501.9520, L503.6005, L501.5200 #### [facility] [address] [place], [address] WBC (Bld) [#/Vol] 6.4 10*3/uL Normal 4.4-11.0 [facility] Comment on above: Performed By: #### L 3700.3000, L3310.0000, L506.0200, L500.4050, L501.7300, L501.9520, L503.6005, L501.5200 #### [facility] [address] [place], [address] Carbon dioxide, total [Moles /volume] in Central venous bloodOrdered By: Vini Feliciano on 06-18-2024 CO2 [Moles/Vol] 27.3 mmol/L 21.0-32.0 [facility] Chloride assayOrdered By: Ra bere Feliciano on 06-18-2024 Chloride [Moles/Vol] 98 mmol/L 98-108 [facility] Metabolic Prof ilon 06-18-2024 Albumin [Mass/Vol] 4.0 g/dL Normal 3.4-4.8 [facility] Comment on above: Performed By: #### L 3700.3000, L3310.0000, L506.0200, L500.4050, L501.7300, L501.9520, L503.6005, L501.5200 #### [facility] [address] [place], [address] Albumin/Globulin [Mass ratio] 1.3 {ratio} Normal 0.9-2.4 [facility] Comment on above: Performed By: #### L 3700.3000, L3310.0000, L506.0200, L500.4050, L501.7300, L501.9520, L503.6005, L501.5200 #### [facility] [address] [place], [address] ALK PHOS 91 U/L Normal 40-129 [facility] Comment on above: Performed By: #### L 3700.3000, L3310.0000, L506.0200, L500.4050, L501.7300, L501.9520, L503.6005, L501.5200 #### [facility] [address] [place], [address] ALT [Catalytic activity/Vol] 31 U/L Normal <=46 [facility] Comment on above: Performed By: #### L 3700.3000, L3310.0000, L506.0200, L500.4050, L501.7300, L501.9520, L503.6005, L501.5200 #### [facility] [address] [place], [address] AST [Catalytic activity/Vol] 47 U/L High <=37 [facility] Comment on above: Performed By: #### L 3700.3000, L3310.0000, L506.0200, L500.4050, L501.7300, L501.9520, L503.6005, L501.5200 #### [facility] [address] [place], [address] Bilirubin [Mass/Vol] 0.21 mg/dL Normal 0.00-1.30 [facility] Comment on above: Performed By: #### L 3700.3000, L3310.0000, L506.0200, L500.4050, L501.7300, L501.9520, L503.6005, L501.5200 #### [facility] [address] [place], [address] BUN/CRE 17.6 RATIO Normal 10-20 [facility] Comment on above: Performed By: #### L 3700.3000, L3310.0000, L506.0200, L500.4050, L501.7300, L501.9520, L503.6005, L501.5200 #### [facility] [address] [place], [address] Calcium [Mass/Vol] 9.4 mg/dL Normal 7.6-11.0 [facility] Comment on above: Performed By: #### L 3700.3000, L3310.0000, L506.0200, L500.4050, L501.7300, L501.9520, L503.6005, L501.5200 #### [facility] [address] [place], [address] Chloride [Moles/Vol] 98 mmol/L Normal 98-108 [facility] Comment on above: Performed By: #### L 3700.3000, L3310.0000, L506.0200, L500.4050, L501.7300, L501.9520, L503.6005, L501.5200 #### [facility] [address] [place], [address] CO2 [Moles/Vol] 27.3 mmol/L Normal 21.0-32.0 [facility] Comment on above: Performed By: #### L 3700.3000, L3310.0000, L506.0200, L500.4050, L501.7300, L501.9520, L503.6005, L501.5200 #### [facility] [address] [place], [address] Creatinine [Mass/Vol] 0.91 mg/dL Normal 0.70-1.20 [facility] Comment on above: Performed By: #### L 3700.3000, L3310.0000, L506.0200, L500.4050, L501.7300, L501.9520, L503.6005, L501.5200 #### [facility] [address] [place], [address] GAP 12 Normal 5-15 [facility] Comment on above: Performed By: #### L 3700.3000, L3310.0000, L506.0200, L500.4050, L501.7300, L501.9520, L503.6005, L501.5200 #### [facility] [address] [place], [address] GFR/1.73 sq M.predicted among non-blacks MDRD (S/P/Bld) [Vol rate/Area] 90 mL/min/{1.73_m2} Normal >60 [facility] Comment on above: Result Comment: mL/m in/1.73m2 CKD-EPI Creatinine Equation (2020) Performed By: #### L 3700.3000, L3310.0000, L506.0200, L500.4050, L501.7300, L501.9520, L503.6005, L501.5200 #### [facility] [address] [place], [address] Globulin (S) [Mass/Vol] 3.0 g/dL Normal 2.2-4.2 [facility] Comment on above: Performed By: #### L 3700.3000, L3310.0000, L506.0200, L500.4050, L501.7300, L501.9520, L503.6005, L501.5200 #### [facility] [address] [place], [address] Glucose [Mass/Vol] 119 mg/dL High 70-99 [facility] Comment on above: Performed By: #### L 3700.3000, L3310.0000, L506.0200, L500.4050, L501.7300, L501.9520, L503.6005, L501.5200 #### [facility] [address] [place], [address] Potassium [Moles/Vol] 4.4 mmol/L Normal 3.3-5.1 [facility] Comment on above: Performed By: #### L 3700.3000, L3310.0000, L506.0200, L500.4050, L501.7300, L501.9520, L503.6005, L501.5200 #### [facility] [address] [place], [place], [address] Sodium [Moles/Vol] 138 mmol/L Normal 133-145 [facility] Comment on above: Performed By: #### L 3700.3000, L3310.0000, L506.0200, L500.4050, L501.7300, L501.9520, L503.6005, L501.5200 #### [facility] [address] [place], [place], [id number] (129) T PROT 7.0 g/dL Normal 5.9-8.4 [facility] Comment on above: Performed By: #### L 3700.3000, L3310.0000, L506.0200, L500.4050, L501.7300, L501.9520, L503.6005, L501.5200 #### [facility] [address] [place], [place], [id number] Urea nitrogen [Mass/Vol] 16 mg/dL Normal 4-19 [facility] Comment on above: Performed By: #### L 3700.3000, L3310.0000, L506.0200, L500.4050, L501.7300, L501.9520, L503.6005, L501.5200 #### [facility] [address] [place], [place], [id number] Erythrocyte distribution wid th ratioOrdered By: Vini Feliciano on 06-18-2024 Erythrocyte distribution width (RBC) [Ratio] 12.3 % 11.6-14.6 [facility] Erythrocyte distribution wid th standard deviationOrdered By: Vini Feliciano on 06-18-2024 Erythrocyte distribution width (RBC) [Entitic vol] 39.8 fL 35.1-43.9 [facility] GFR/1.73 sq M.predicted rahel g non-blacks MDRD (S/P/Bld) [Vol rate/Area]Ordered By: Vini Feliciano on 06-18-2024 Estimated GFR (MDRD) Non-Af Amer 90 >60 [facility] Comment on above: mL/min/1.73m2 CKD-EP I Creatinine Equation (2020) Hematocrit Auto (Bld) [Volum e fraction]Ordered By: Vini Feliciano on 06-18-2024 Hematocrit (Bld) [Volume fraction] 42.2 % 40-54 [facility] Hemoglobin measurementOrdere d By: Vini Feliciano on 06-18-2024 Hemoglobin (Bld) [Mass/Vol] 14.5 g/dL 13.0-16.5 [facility] - Chemistry and C hemistry - challengeOrdered By: Vini Feliciano on 06-18-2024 AST [Catalytic activity/Vol] 47 U/L High <38 [facility] LevetiracetamOrdered By: Yahir Feliciano on 06-18-2024 Levetiracetam (Keppra) Level 27.6 ug/mL 10.0-40.0 [facility] Comment on above: Performed at: [address] [id number] Director: Pacheco Campos PhD, Phone: [phone] at: [facility] [id number] Director: Vickey Romeo MD, Phone: [phone] MCV (mean corpuscular volume ) determinationOrdered By: Vini Feliciano on 06-18-2024 MCV (RBC) [Entitic vol] 87.7 fL 80-94 [facility] Mean corpuscular hemoglobin (MCH) determinationOrdered By: Vini Feliciano on 06-18-2024 MCH (RBC) [Entitic mass] 30.1 pg 27.0-32.0 [facility] Mean corpuscular hemoglobin concentration (MCHC) determinationOrdered By: Vini Feliciano on 06-18-2024 MCHC (RBC) [Mass/Vol] 34.4 g/dL 32-36 [facility] Mean platelet volume determi nationOrdered By: Vini Feliciano on 06-18-2024 Platelet mean volume (Bld) [Entitic vol] 10.0 fL 6.2-12.0 [facility] Platelet countOrdered By: Ra bere Feliciano on 06-18-2024 Platelets (Bld) [#/Vol] 266 10*3/uL 150-450 [facility] Potassium (Unsp spec) [Mass/ Vol]Ordered By: Vini Feliciano on 06-18-2024 Potassium [Moles/Vol] 4.4 mmol/L 3.3-5.1 [facility] Quantitative phenobarbital m easurementOrdered By: Vini Feliciano on 06-18-2024 Phenobarbital Level 18 ug/mL 15-40 [facility] Comment on above: Detection Limit = 3 RBC Auto (Bld) [#/Vol]Ordere d By: Vini Feliciano on 06-18-2024 RBC (Bld) [#/Vol] 4.81 10*6/uL 4.6-6.2 [facility] Serum creatinine measurement (mass/volume)Ordered By: Vini Feliciano on 06-18-2024 Creatinine [Mass/Vol] 0.91 mg/dL 0.70-1.20 [facility] Serum globulin measurementOr dered By: Vini Feliciano on 06-18-2024 Globulin (S) [Mass/Vol] 3.0 g/dL 2.2-4.2 [facility] Serum glucose measurement (m ass/volume)Ordered By: Vini Feliciano on 06-18-2024 Glucose [Mass/Vol] 119 mg/dL High 70-99 [facility] Serum or plasma alanine medrano otransferase (ALT) measurementOrdered By: Vnii Feliciano on 06-18-2024 ALT [Catalytic activity/Vol] 31 U/L <47 [facility] Serum or plasma albumin jung urement (mass/volume)Ordered By: Vini Feliciano on 06-18-2024 Albumin [Mass/Vol] 4.0 g/dL 3.4-4.8 [facility] Serum or plasma albumin/glob ulin mass ratioOrdered By: Vini Feliciano on 06-18-2024 Albumin/Globulin [Mass ratio] 1.3 {ratio} 0.9-2.4 [facility] Serum or plasma alkaline ally sphatase measurementOrdered By: Vinicandy Feliciano on 06-18-2024 ALP [Catalytic activity/Vol] 91 U/L 40-129 [facility] Serum or plasma calcium jung urement (mass/volume)Ordered By: Vniicandy Feliciano on 06-18-2024 Calcium [Mass/Vol] 9.4 mg/dL 7.6-11.0 [facility] Serum or plasma urea nitroge n measurement (mass/volume)Ordered By: Vini Feliciano on 06-18-2024 Urea nitrogen [Mass/Vol] 16 mg/dL 4-19 [facility] Sodium levelOrdered By: Yahirdamaso astrid Feliciano on 06-18-2024 Sodium [Moles/Vol] 138 mmol/L 133-145 [facility] Total proteinOrdered By: Yahir edytajamil Feliciano on 06-18-2024 Protein [Mass/Vol] 7.0 g/dL 5.9-8.4 [facility] Venous blood ammonia measure mentOrdered By: Vini Feliciano on 06-18-2024 Ammonia (P) [Moles/Vol] 16.1 umol/L 16-60 [facility] White blood cell (WBC) count Ordered By: Vini Feliciano on 06-18-2024 WBC (Bld) [#/Vol] 6.4 10*3/uL 4.4-11.0 [facility] HIP, UNI W/ Pelvis 2-3 Views on 05-29-2024 HIP, UNI W/ Pelvis 2-3 Views [facility] [address] [place] [address] HIP, UNI W/ Pelvis 2-3 Views MR#: [id number] Acct: [id number] Name: NAYLA BENNETT Rep #: [id number] : 1955 M 69 From: Jd mar MD PCP: Dr. Eddi Lynn MD Status: REG CLI Study: HIP, UNI W/ Pelvis 2-3 Views Date of Exam: 09/17 Exam# [id number] Ordering Dr: Eddi Lynn MD PROCEDURE: HIP, UNI W/ PELVIS 2-3 VIEWS REASON FOR EXAM: Pain following recent fall. TECHNIQUE: Three views were obtained. COMPARISON: None. FINDINGS: No fracture. No suspicious bone lesion. Normal alignment. Calcified phleboliths are seen in the pelvis. 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 RAD/HIP, UNI W/ Pelvis 2-3 Views IMPRESSION: Degenerative changes. Reading Location: [id number] CC: Dr. Eddi Lynn MD [employer] Spotter: Signed Normal [facility] Neurology Visit Reporton Neurology Visit Report [facility] [address], [address] [place] [address] OFFICE VISIT Date of Service: 05/28/24 MR#: [id number] Acct: [id number] Name: NAYLA BENNETT Rep #: [id number] : 1955 Provider: Dr. Vini scott MD Age/Sex: 69/M Location: [facility] [place] Status: Signed HPI HPI Chief Complaint: Details: Interim History: Nayla returns for follow-up visit. He is accompanied by a caregiver from his senior care. He has a history of diabetes mellitus, [...] Department Summary on 05-22-2024 Emergency Department Summary [facility] Medical Records Department [address] [place] [address] Emergency Department Summary 05/22/24 MR#: [id number] Acct: [id number] Name: NAYLA BENNETT Rep #: [id number] : 1955 69 From: Chet Grover MD PCP: Dr. Dean Felipe MD Status:PRE ER Location: ED HPI History of Present Illness Chief Complaint: Fall Detail of Chief Complaint: Concern for injury to left hip lower back status post fall Informant: other (Attending from senior care) Limited: other (Nonverbal) Onset/Context/Timing Onset: Today Mechanism/Context: [...] history is available [facility] similar symptoms: [facility] Medical History Developmental non-verbal disorder Vitamin B12 deficiency Epilepsy, unspecified, not intractable, without status epilepticus Schizophrenia Seizure disorder Hyperlipidemia HTN (hypertension) Diabetes mellitus, type II Home Medications ???Medication ???Instructions ???Recorded ???Last Taken ???Type loratadine 10 mg tablet 10 mg PO DAILY PRN allergies 07/16 Unknown History omega 8-wlb-hlz-fish oil 300 1 ea PO BID 07/16/16 [...] previous surgery Social History housing: other details: [facility] Smoking Status: Never smoker Electronic Cigarette Use: [...] or indica (more content not included)... Normal [facility] Basophil percentageOrdered B y: Vini Feliciano on 06-12-2023 Ammonia (P) [Moles/Vol] 12.0 umol/L 11-32 [facility] Basophil percentage 17.0 ug/mL 10.0-40.0 [facility] Bilirubin [Mass/Vol] 0.40 mg/dL 0.20-1.00 [facility] Comment on above: For patients on eltr ombopag therapy, use of Dimension [place] TBIL is not recommended. Chloride [Moles/Vol] 102 mmol/L 98-107 [facility] Glucose [Mass/Vol] 128 mg/dL 74-106 [facility] Comment on above: Fasting Glucose resu lt greater than or equal to 126 mg/dL suggests DIABETES MELLITUS per A.D.A. criteria. Hemoglobin (Bld) [Mass/Vol] 15.6 g/dL 13.0-16.5 [facility] Potassium [Moles/Vol] 4.1 mmol/L 3.5-5.1 [facility] Protein [Mass/Vol] 7.5 g/dL 6.4-8.2 [facility] Sodium [Moles/Vol] 137 mmol/L 136-145 [facility] WBC (Bld) [#/Vol] 10.1 10*3/uL 4.4-11.0 [facility] Determination of erythrocyte mean corpuscular volume (MCV)Ordered By: Vini Feliciano on 06-12-2023 MCV (RBC) [Entitic vol] 88.8 fL 80-94 [facility] Erythrocyte distribution wid th ratioOrdered By: Vinicandy Feliciano on 06-12-2023 Erythrocyte distribution width (RBC) [Ratio] 12.1 % 11.6-14.6 [facility] Erythrocyte distribution wid th standard deviationOrdered By: [facility]ini [facility] on 06-12-2023 Erythrocyte distribution width (RBC) [Entitic vol] 39.6 fL 35.1-43.9 [facility] Hematocrit Auto (Bld) [Volum e fraction]Ordered By: Vini Feliciano on 06-12-2023 Hematocrit (Bld) [Volume fraction] 45.8 % 40-54 [facility] - Chemistry and C hemistry - challengeOrdered By: Vinicandy Feliciano on 06-12-2023 Albumin/Globulin [Mass ratio] 1.0 {ratio} 0.9-2.4 [facility] ALP [Catalytic activity/Vol] 101 U/L 45-117 [facility] ALT [Catalytic activity/Vol] 27 U/L 16-61 [facility] CO2 [Moles/Vol] 28.0 mmol/L 21.0-32.0 [facility] Globulin (S) [Mass/Vol] 3.7 g/dL 2.2-4.2 [facility] Urea nitrogen/Creatinine [Mass ratio] 14.2 mg/mg 10-20 [facility] - Hematology and Cell countsOrdered By: Vini Feliciano on 06-12-2023 MCH (RBC) [Entitic mass] 30.2 pg 27.0-32.0 [facility] MCHC (RBC) [Mass/Vol] 34.1 g/dL 32-36 [facility] Platelet mean volume (Bld) [Entitic vol] 9.0 fL 6.2-12.0 [facility] Platelets (Bld) [#/Vol] 277 10*3/uL 150-450 [facility] No Panel InformationOrdered By: Vini Feliciano on 06-12-2023 Estimated GFR (MDRD) Amer 89 mL/min >60 [facility] Comment on above: GFR Calc Estimated GFR (MDRD) Non-Af Amer 74 mL/min >60 [facility] Comment on above: Non- GFR Calc Levetiracetam (Keppra) Level 18.9 ug/mL 10.0-40.0 [facility] Comment on above: Performed at: [address] [id number] Director: Vickey Romeo MD, Phone: [phone] RBC Auto (Bld) [#/Vol]Ordere d By: Vini Feliciano on 06-12-2023 RBC (Bld) [#/Vol] 5.16 10*6/uL 4.6-6.2 [facility] Serum or plasma calcium jung urement (mass/volume)Ordered By: Vini Feliciano on 06-12-2023 Calcium [Mass/Vol] 9.3 mg/dL 8.5-10.1 [facility] Serum or plasma creatinine m easurement (mass/volume)Ordered By: Vini Feliciano on 06-12-2023 Creatinine [Mass/Vol] 1.06 mg/dL 0.70-1.30 [facility] Comment on above: The validity of the calculated GFR & GFRAA in patients over 70 years has not been determined. Clinical correlation is essential. Serum or plasma urea nitroge n measurement (mass/volume)Ordered By: Vini Feliciano on 06-12-2023 Urea nitrogen [Mass/Vol] 15 mg/dL 7-18 [facility] Thin prep Papanicolaou smear with manual screeningOrdered By: Vini Feliciano on 06-12-2023 Thin prep Papanicolaou smear with manual screening 3.8 g/dL 3.2-5.0 [facility] Thin prep Papanicolaou smear with manual screening 19 U/L 15-37 [facility] Thin prep Papanicolaou smear with manual screening 7 5-15 [facility] Absolute lymphocyte countOrd ered By: Dean Felipe on 05-01-2023 Lymphocytes Auto (Unsp spec) [#/Vol] 2.71 10*3/uL 0.83-4.51 [facility] Automated lymphocyte count a s percentage of total leukocytesOrdered By: Dean Felipe on 05-01-2023 Lymphocytes/100 WBC Auto (Unsp spec) 27.1 % 19-41 [facility] Basophil percentageOrdered B y: Dean Felipe on 05-01-2023 Basophils/100 WBC (Bld) 0.6 % 0-1 [facility] Bilirubin [Mass/Vol] 0.20 mg/dL 0.20-1.00 [facility] Comment on above: For patients on eltr ombopag therapy, use of Dimension [place] TBIL is not recommended. Chloride [Moles/Vol] 98 mmol/L 98-107 [facility] Cholesterol [Mass/Vol] 107 mg/dL <200 [facility] Comment on above: <200 mg/dL Desirable 200-240 mg/dL Borderline >240 mg/dL High Risk Eosinophils/100 WBC (Bld) 3.1 % 0-5 [facility] Glucose [Mass/Vol] 96 mg/dL 74-106 [facility] Hemoglobin (Bld) [Mass/Vol] 14.3 g/dL 13.0-16.5 [facility] Monocytes/100 WBC (Bld) 8.8 % 0-10 [facility] Neutrophils (Bld) [#/Vol] 6.0 10*3/uL 2.0-7.7 [facility] Neutrophils/100 WBC (Bld) 60.2 % 47-70 [facility] Potassium [Moles/Vol] 4.2 mmol/L 3.5-5.1 [facility] Protein [Mass/Vol] 6.9 g/dL 6.4-8.2 [facility] Sodium [Moles/Vol] 129 mmol/L 136-145 [facility] Triglyceride [Mass/Vol] 120 mg/dL <199 [facility] Comment on above: The drugs N-Acetylcy steine and Metamizole may falsely depress this assay.Serum Triglycerides Reference Interval Normal <150 mg/dL Borderline high 150 - 199 mg/dL High 200 - 499 mg/dL Very High > or = 500 mg/dL WBC (Bld) [#/Vol] 10.0 10*3/uL 4.4-11.0 [facility] Determination of erythrocyte mean corpuscular volume (MCV)Ordered By: Dean Felipe on 05-01-2023 MCV (RBC) [Entitic vol] 86.8 fL 80-94 [facility] Erythrocyte distribution wid th ratioOrdered By: Dean Felipe on 05-01-2023 Erythrocyte distribution width (RBC) [Ratio] 11.9 % 11.6-14.6 [facility] Erythrocyte distribution wid th standard deviationOrdered By: [facility] on 05-01-2023 Erythrocyte distribution width (RBC) [Entitic vol] 38.1 fL 35.1-43.9 [facility] Hematocrit Auto (Bld) [Volum e fraction]Ordered By: [facility] on 05-01-2023 Hematocrit (Bld) [Volume fraction] 41.6 % 40-54 [facility] Immature granulocytes/100 WB C Auto (Bld)Ordered By: [facility] on 05-01-2023 Immature granulocytes/100 WBC (Bld) 0.200 % 0.0-0.9 [facility] Comment on above: IG% - Immature Granu locytes (promyelocytes, myelocytes and metamyelocytes) > 1% indicates that a LEFT SHIFT is Present. Laboratory - Chemistry and C hemistry - challengeOrdered By: [facility] on 05-01-2023 Albumin/Globulin [Mass ratio] 1.1 {ratio} 0.9-2.4 [facility] ALP [Catalytic activity/Vol] 99 U/L 45-117 [facility] ALT [Catalytic activity/Vol] 26 U/L 16-61 [facility] Cholesterol in HDL [Mass/Vol] 38 mg/dL >40 [facility] Comment on above: The drugs N-Acetylcy steine and Metamizole may falsely depress this assay. Reference Range HDL <40 mg/dL Low HDL Cholesterol HDL >or= 60 mg/dL High HDL Cholesterol Cholesterol in LDL [Mass/Vol] 45 mg/dL 0-130 [facility] CO2 [Moles/Vol] 24.0 mmol/L 21.0-32.0 [facility] Globulin (S) [Mass/Vol] 3.3 g/dL 2.2-4.2 [facility] Urea nitrogen/Creatinine [Mass ratio] 16.6 mg/mg 10-20 [facility] Laboratory - Hematology and Cell countsOrdered By: [facility] on 05-01-2023 MCH (RBC) [Entitic mass] 29.9 pg 27.0-32.0 [facility] MCHC (RBC) [Mass/Vol] 34.4 g/dL 32-36 [facility] Nucleated RBC/100 WBC (Bld) [Ratio] 0 % 0-5 [facility] Platelet mean volume (Bld) [Entitic vol] 9.1 fL 6.2-12.0 [facility] Platelets (Bld) [#/Vol] 318 10*3/uL 150-450 [facility] No Panel InformationOrdered By: Dean Felipe on 05-01-2023 Urine Microalbumin/Creatinine Ratio 33.3 mg/g CRE <30 [facility] Estimated GFR (MDRD) Amer 100 mL/min >60 [facility] Comment on above: GFR Calc Estimated GFR (MDRD) Non-Af Amer 82 mL/min >60 [facility] Comment on above: Non- GFR Calc Vitamin D 25-Hydroxy 59.6 ng/mL [facility] Comment on above: Vitamin D 25(OH) Sta tus Range Deficiency <20 ng/mL (50nmol/L) Insufficiency 20 - 30 ng/mL (50 - 75 nmol/L) Sufficiency 30 - 100 ng/mL (75 - 250 nmol/L) Toxicity >100 ng/mL (>250 nmol/L) VLDL Cholesterol 24 mg/dL 5-40 [facility] RBC Auto (Bld) [#/Vol]Ordere d By: Dean Felipe on 05-01-2023 RBC (Bld) [#/Vol] 4.79 10*6/uL 4.6-6.2 [facility] Serum or plasma calcium jung urement (mass/volume)Ordered By: Dean Felipe on 05-01-2023 Calcium [Mass/Vol] 8.9 mg/dL 8.5-10.1 [facility] Serum or plasma creatinine m easurement (mass/volume)Ordered By: Dean Felipe on 05-01-2023 Creatinine [Mass/Vol] 0.96 mg/dL 0.70-1.30 [facility] Comment on above: The validity of the calculated GFR & GFRAA in patients over 70 years has not been determined. Clinical correlation is essential. Serum or plasma thyroid stim ulating hormone (TSH) measurement (units/volume)Ordered By: Dean Felipe on 05-01-2023 TSH Qn 3.02 uIU/mL 0.358-3.74 [facility] Serum or plasma urea nitroge n measurement (mass/volume)Ordered By: Dean Felipe on 05-01-2023 Urea nitrogen [Mass/Vol] 16 mg/dL 7-18 [facility] Thin prep Papanicolaou smear with manual screeningOrdered By: Dean Felipe on 05-01-2023 Thin prep Papanicolaou smear with manual screening 15.0 mg/L NO RANGE EST. [facility] Thin prep Papanicolaou smear with manual screening 3.6 g/dL 3.2-5.0 [facility] Thin prep Papanicolaou smear with manual screening 17 U/L 15-37 [facility] Thin prep Papanicolaou smear with manual screening 7 5-15 [facility] Urine creatinine measurement (mass/volume)Ordered By: Dean Felipe on 05-01-2023 Creatinine (U) [Mass/Vol] 45.10 mg/dL NO RANGE EST. [facility] Whole blood hemoglobin A1c/t otal hemoglobin ratio (mass fraction)Ordered By: Dean Felipe on 05-01-2023 HbA1c (Bld) [Mass fraction] 6.0 % 3.8-5.6 [facility] Comment on above: Normal < 5.7 % Predi abetic 5.7 - 6.4 % Diabetic >or= 6.5 % Please note range changes. Basophil percentageOrdered B y: Vini Feliciano on 12-19-2022 Ammonia (P) [Moles/Vol] 14.0 umol/L 11-32 [facility] Basophil percentage 18.2 ug/mL 10.0-40.0 [facility] Bilirubin [Mass/Vol] 0.30 mg/dL 0.20-1.00 [facility] Comment on above: For patients on eltr ombopag therapy, use of Dimension [place] TBIL is not recommended. Chloride [Moles/Vol] 102 mmol/L 98-107 [facility] Glucose [Mass/Vol] 130 mg/dL 74-106 [facility] Comment on above: Fasting Glucose resu lt greater than or equal to 126 mg/dL suggests DIABETES MELLITUS per A.D.A. criteria. Potassium [Moles/Vol] 4.3 mmol/L 3.5-5.1 [facility] Protein [Mass/Vol] 7.6 g/dL 6.4-8.2 [facility] Sodium [Moles/Vol] 134 mmol/L 136-145 [facility] Laboratory - Chemistry and C hemistry - challengeOrdered By: Vini Feliciano on 12-19-2022 ALP [Catalytic activity/Vol] 112 U/L 45-117 [facility] ALT [Catalytic activity/Vol] 27 U/L 16-61 [facility] CO2 [Moles/Vol] 28.0 mmol/L 21.0-32.0 [facility] Globulin (S) [Mass/Vol] 3.9 g/dL 2.2-4.2 [facility] Urea nitrogen/Creatinine [Mass ratio] 16.0 mg/mg 10-20 [facility] No Panel InformationOrdered By: Vini Feliciano on 12-19-2022 Estimated GFR (MDRD) Amer 103 mL/min >60 [facility] Comment on above: GFR Calc Estimated GFR (MDRD) Non-Af Amer 85 mL/min >60 [facility] Comment on above: Non- GFR Calc Levetiracetam (Keppra) Level 33.4 ug/mL 10.0-40.0 [facility] Comment on above: Performed at: [address] [id number] Director: Vickey Romeo MD, Phone: [phone] Serum or plasma albumin jung urement (mass/volume)Ordered By: Vini Feliciano on 12-19-2022 Albumin [Mass/Vol] 3.7 g/dL 3.2-5.0 [facility] Serum or plasma albumin/glob ulin mass ratioOrdered By: Vini Feliciano on 12-19-2022 Albumin/Globulin [Mass ratio] 0.9 {ratio} 0.9-2.4 [facility] Serum or plasma calcium jung urement (mass/volume)Ordered By: Vini Feliciano on 12-19-2022 Calcium [Mass/Vol] 10.0 mg/dL 8.5-10.1 [facility] Serum or plasma creatinine m easurement (mass/volume)Ordered By: Vini Feliciano on 12-19-2022 Creatinine [Mass/Vol] 0.94 mg/dL 0.70-1.30 [facility] Comment on above: The validity of the calculated GFR & GFRAA in patients over 70 years has not been determined. Clinical correlation is essential. Serum or plasma urea nitroge n measurement (mass/volume)Ordered By: Vini Feliciano on 12-19-2022 Urea nitrogen [Mass/Vol] 15 mg/dL 7-18 [facility] Thin prep Papanicolaou smear with manual screeningOrdered By: Vini Feliciano on 12-19-2022 Thin prep Papanicolaou smear with manual screening 12 U/L 15-37 [facility] Thin prep Papanicolaou smear with manual screening 4 5-15 [facility] Absolute lymphocyte countOrd ered By: Alice Mckeon on 11-05-2022 Lymphocytes Auto (Unsp spec) [#/Vol] 2.33 10*3/uL 0.83-4.51 [facility] Basophil percentageOrdered B y: Alice Mckeon on 11-05-2022 Basophil percentage 3.2 mg/dL 2.5-4.9 [facility] Basophils/100 WBC (Bld) 0.5 % 0-1 [facility] Bilirubin [Mass/Vol] 0.30 mg/dL 0.20-1.00 [facility] Comment on above: For patients on eltr ombopag therapy, use of Dimension [place] TBIL is not recommended. Chloride [Moles/Vol] 99 mmol/L 98-107 [facility] Eosinophils/100 WBC (Bld) 0.6 % 0-5 [facility] Glucose [Mass/Vol] 124 mg/dL 74-106 [facility] Comment on above: Fasting Glucose resu lt from 100 to 125 mg/dL suggests IMPAIRED HOMEOSTASIS per A.D.A. criteria. Neutrophils (Bld) [#/Vol] 5.1 10*3/uL 2.0-7.7 [facility] Neutrophils/100 WBC (Bld) 55.5 % 47-70 [facility] Potassium [Moles/Vol] 3.8 mmol/L 3.5-5.1 [facility] Protein [Mass/Vol] 6.7 g/dL 6.4-8.2 [facility] Sodium [Moles/Vol] 133 mmol/L 136-145 [facility] WBC (Bld) [#/Vol] 9.3 10*3/uL 4.4-11.0 [facility] Blood erythrocytes count (nu mber/volume)Ordered By: Alice Mckeon on 11-05-2022 RBC (Bld) [#/Vol] 4.70 10*6/uL 4.6-6.2 [facility] Blood hemoglobin measurement (mass/volume)Ordered By: Alice Mckeon on 11-05-2022 Hemoglobin (Bld) [Mass/Vol] 13.9 g/dL 13.0-16.5 [facility] Blood lymphocytes/100 leukoc ytesOrdered By: Alice Mckeon on 11-05-2022 Lymphocytes/100 WBC (Bld) 25.1 % 19-41 [facility] Blood monocytes/100 leukocyt esOrdered By: Alice Mckeon on 11-05-2022 Monocytes/100 WBC (Bld) 18.0 % 0-10 [facility] Blood platelet mean volumeOr dered By: Alice Mckeon on 11-05-2022 Platelet mean volume (Bld) [Entitic vol] 9.2 fL 6.2-12.0 [facility] Determination of erythrocyte mean corpuscular volume (MCV)Ordered By: Alice Mckeon on 11-05-2022 MCV (RBC) [Entitic vol] 86.2 fL 80-94 [facility] Glucose Glucometer (BldC) [M ass/Vol]Ordered By: Alice Mckeon on 11-05-2022 Glucose [Mass/Vol] 130 mg/dL 74-106 [facility] Comment on above: MANAGEMENT OF PATIEN T CARE PER NURSING PROTOCOL Hematocrit Auto (Bld) [Volum e fraction]Ordered By: Alice Mckeon on 11-05-2022 Hematocrit (Bld) [Volume fraction] 40.5 % 40-54 [facility] Laboratory - Chemistry and C hemistry - challengeOrdered By: Alice Mckeon on 11-05-2022 ALP [Catalytic activity/Vol] 82 U/L 45-117 [facility] ALT [Catalytic activity/Vol] 35 U/L 16-61 [facility] CO2 [Moles/Vol] 26.0 mmol/L 21.0-32.0 [facility] Globulin (S) [Mass/Vol] 3.7 g/dL 2.2-4.2 [facility] Magnesium [Mass/Vol] 2.0 mg/dL 1.6-2.6 [facility] Urea nitrogen/Creatinine [Mass ratio] 17.5 mg/mg 10-20 [facility] Laboratory - Hematology and Cell countsOrdered By: Alice Mckeon on 11-05-2022 Erythrocyte distribution width (RBC) [Entitic vol] 37.2 fL 35.1-43.9 [facility] Erythrocyte distribution width (RBC) [Ratio] 11.9 % 11.6-14.6 [facility] Immature granulocytes/100 WBC (Bld) 0.300 % 0.0-0.9 [facility] Comment on above: IG% - Immature Granu locytes (promyelocytes, myelocytes and metamyelocytes) > 1% indicates that a LEFT SHIFT is Present. MCH (RBC) [Entitic mass] 29.6 pg 27.0-32.0 [facility] Nucleated RBC/100 WBC (Bld) [Ratio] 0 % 0-5 [facility] MCHC Auto (RBC) [Mass/Vol]Or dered By: Alice Mckeon on 11-05-2022 MCHC (RBC) [Mass/Vol] 34.3 g/dL 32-36 [facility] No Panel InformationOrdered By: Alice Mckeon on 11-05-2022 Estimated Creatinine Clearance Calc 85.50 ml/min [facility] Estimated GFR (MDRD) Amer 123 mL/min >60 [facility] Comment on above: GFR Calc Estimated GFR (MDRD) Non-Af Amer 102 mL/min >60 [facility] Comment on above: Non- GFR Calc Thyroid Stimulating Hormone (TSH) 3.49 uIU/mL 0.358-3.74 [facility] Platelets bldOrdered By: Samanta Mckeon on 11-05-2022 Platelets (Bld) [#/Vol] 275 10*3/uL 150-450 [facility] Serum or plasma albumin jung urement (mass/volume)Ordered By: Alice Mckeon on 11-05-2022 Albumin [Mass/Vol] 3.0 g/dL 3.2-5.0 [facility] Serum or plasma albumin/glob ulin mass ratioOrdered By: Alice Mckeon on 11-05-2022 Albumin/Globulin [Mass ratio] 0.8 {ratio} 0.9-2.4 [facility] Serum or plasma calcium jung urement (mass/volume)Ordered By: Alice Mckeon on 11-05-2022 Calcium [Mass/Vol] 8.4 mg/dL 8.5-10.1 [facility] Serum or plasma creatinine m easurement (mass/volume)Ordered By: Alice Mckeon on 11-05-2022 Creatinine [Mass/Vol] 0.80 mg/dL 0.70-1.30 [facility] Comment on above: The validity of the calculated GFR & GFRAA in patients over 70 years has not been determined. Clinical correlation is essential. Serum or plasma urea nitroge n measurement (mass/volume)Ordered By: Alice Mckeon on 11-05-2022 Urea nitrogen [Mass/Vol] 14 mg/dL 7-18 [facility] Thin prep Papanicolaou smear with manual screeningOrdered By: Alice Mckeon on 11-05-2022 Thin prep Papanicolaou smear with manual screening 63 U/L 15-37 [facility] Thin prep Papanicolaou smear with manual screening 8 5-15 [facility] Absolute lymphocyte countOrd ered By: Jefferson Lazar on 11-04-2022 Lymphocytes Auto (Unsp spec) [#/Vol] 0.63 10*3/uL 0.83-4.51 [facility] Basophil percentageOrdered B y: Alice Mckeon on 11-04-2022 Basophil percentage 0 SEEN /hpf 0-5 [facility] Basophil percentageOrdered B y: Jefferson Lazar on 11-04-2022 Basophils/100 WBC (Bld) 0.4 % 0-1 [facility] Chloride [Moles/Vol] 95 mmol/L 98-107 [facility] Eosinophils/100 WBC (Bld) 0.1 % 0-5 [facility] Glucose [Mass/Vol] 152 mg/dL 74-106 [facility] Comment on above: Fasting Glucose resu lt greater than or equal to 126 mg/dL suggests DIABETES MELLITUS per A.D.A. criteria. Neutrophils (Bld) [#/Vol] 8.9 10*3/uL 2.0-7.7 [facility] Neutrophils/100 WBC (Bld) 80.2 % 47-70 [facility] Potassium [Moles/Vol] 3.9 mmol/L 3.5-5.1 [facility] Sodium [Moles/Vol] 128 mmol/L 136-145 [facility] WBC (Bld) [#/Vol] 11.1 10*3/uL 4.4-11.0 [facility] Bilirubin Test strip Ql (U)O rdered By: Alice Mckeon on 11-04-2022 Bilirubin Ql (U) Negative Negative [facility] Blood erythrocytes count (nu mber/volume)Ordered By: Jefferson Lazar on 11-04-2022 RBC (Bld) [#/Vol] 4.41 10*6/uL 4.6-6.2 [facility] Blood hemoglobin measurement (mass/volume)Ordered By: Jefferson Lazar on 11-04-2022 Hemoglobin (Bld) [Mass/Vol] 13.2 g/dL 13.0-16.5 [facility] Blood lymphocytes/100 leukoc ytesOrdered By: Jefferson Lazar on 11-04-2022 Lymphocytes/100 WBC (Bld) 5.7 % 19-41 [facility] Blood monocytes/100 leukocyt esOrdered By: Jefferson Lazar on 11-04-2022 Monocytes/100 WBC (Bld) 13.2 % 0-10 [facility] Blood platelet mean volumeOr dered By: Jefferson Lazar on 11-04-2022 Platelet mean volume (Bld) [Entitic vol] 9.1 fL 6.2-12.0 [facility] Determination of erythrocyte mean corpuscular volume (MCV)Ordered By: Jefferson Lazar on 11-04-2022 MCV (RBC) [Entitic vol] 85.7 fL 80-94 [facility] Hematocrit Auto (Bld) [Volum e fraction]Ordered By: Jefferson Lazar on 11-04-2022 Hematocrit (Bld) [Volume fraction] 37.8 % 40-54 [facility] Ketones Test strip Ql (U)Ord ered By: Alice Mckeon on 11-04-2022 Ketones Ql (U) 5 mg/dl Negative [facility] Laboratory - Chemistry and C hemistry - challengeOrdered By: Jefferson Lazar on 11-04-2022 CO2 [Moles/Vol] 24.0 mmol/L 21.0-32.0 [facility] Urea nitrogen/Creatinine [Mass ratio] 15.7 mg/mg 10-20 [facility] Laboratory - Hematology and Cell countsOrdered By: Jefferson Lazar on 11-04-2022 Erythrocyte distribution width (RBC) [Entitic vol] 37.2 fL 35.1-43.9 [facility] Erythrocyte distribution width (RBC) [Ratio] 11.8 % 11.6-14.6 [facility] Immature granulocytes/100 WBC (Bld) 0.400 % 0.0-0.9 [facility] Comment on above: IG% - Immature Granu locytes (promyelocytes, myelocytes and metamyelocytes) > 1% indicates that a LEFT SHIFT is Present. MCH (RBC) [Entitic mass] 29.9 pg 27.0-32.0 [facility] Nucleated RBC/100 WBC (Bld) [Ratio] 0 % 0-5 [facility] MCHC Auto (RBC) [Mass/Vol]Or dered By: Jefferson Lazar on 11-04-2022 MCHC (RBC) [Mass/Vol] 34.9 g/dL 32-36 [facility] Mucus LM Ql (Urine sed)Order ed By: Alice Mckeon on 11-04-2022 Mucus Ql (Urine sed) 0 SEEN /hpf [facility] Nitrite Test strip Ql (U)Ord ered By: Alice Mckeon on 11-04-2022 Nitrite Ql (U) Negative Negative [facility] No Panel InformationOrdered By: Jefferson Lazar on 11-04-2022 D-Dimer Quantitative (PE/DVT) 0.39 FEU/ug/m 0.27-0.49 [facility] Comment on above: NORMAL D-Dimer level (<0.50) indicates no DVT or PE. Estimated Creatinine Clearance Calc 72.00 ml/min [facility] Estimated GFR (MDRD) Amer 101 mL/min >60 [facility] Comment on above: GFR Calc Estimated GFR (MDRD) Non-Af Amer 83 mL/min >60 [facility] Comment on above: Non- GFR Calc Platelets bldOrdered By: Gerry Lazar on 11-04-2022 Platelets (Bld) [#/Vol] 251 10*3/uL 150-450 [facility] Protein Test strip Ql (U)Ord ered By: Alice Mckeon on 11-04-2022 Protein Ql (U) 30 mg/dl Negative [facility] SARS-CoV-2 (COVID-19) Ag IA. rapid Ql (Resp)Ordered By: Jefferson Lazar on 11-04-2022 SARS-CoV-2 Antigen (Rapid) SARS-CoV-2 (COVID 19) [facility] Serum or plasma calcium jung urement (mass/volume)Ordered By: Jefferson Lazar on 11-04-2022 Calcium [Mass/Vol] 8.5 mg/dL 8.5-10.1 [facility] Serum or plasma creatinine m easurement (mass/volume)Ordered By: Jefferson Lazar on 11-04-2022 Creatinine [Mass/Vol] 0.95 mg/dL 0.70-1.30 [facility] Comment on above: The validity of the calculated GFR & GFRAA in patients over 70 years has not been determined. Clinical correlation is essential. Serum or plasma urea nitroge n measurement (mass/volume)Ordered By: Jefferson Lazar on 11-04-2022 Urea nitrogen [Mass/Vol] 15 mg/dL 7-18 [facility] Squamous epithelial cells de tection in urine sediment by light microscopyOrdered By: Alice Mckeon on 11-04-2022 Epithelial cells.squamous LM Ql (Urine sed) 0 SEEN /hpf 0-5 [facility] Thin prep Papanicolaou smear with manual screeningOrdered By: Jefferson Lazar on 11-04-2022 Thin prep Papanicolaou smear with manual screening 9 5-15 [facility] Urine blood detectionOrdered By: Alice Mckeon on 11-04-2022 RBC Ql (U) 50 /ul Negative [facility] RBC Ql (U) 0 SEEN /hpf 0-5 [facility] Urine clarityOrdered By: Samanta Mckeon on 11-04-2022 Clarity (U) Clear Clear [facility] Urine color determinationOrd ered By: Alice Mckeon on 11-04-2022 Color (U) Yellow Yellow [facility] Urine glucose detectionOrder ed By: Alice Mckeon on 11-04-2022 Glucose Ql (U) 250 mg/dl Normal [facility] Urine leukocyte esterase det ection by dipstickOrdered By: Alice Mckeon on 11-04-2022 Leukocyte esterase Test strip Ql (U) Negative Negative [facility] Urine pHOrdered By: Alice Mckeon on 11-04-2022 pH (U) 6.5 [pH] 5.0 - 8.0 [facility] Urine sediment bacteria coun t by microscopy (number/high power field)Ordered By: Alice Mckeon on 11-04-2022 Bacteria LM.HPF (Urine sed) [#/Area] 0 /[HPF] None Seen [facility] Urine specific gravity measu rementOrdered By: Alice Mckeon on 11-04-2022 Specific gravity (U) [Rel density] 1.010 1.002-1.030 [facility] Urobilinogen Auto test strip Ql (U)Ordered By: Alice Mckeon on 11-04-2022 Urobilinogen Ql (U) Normal mg/dl Normal [facility] Absolute lymphocyte countOrd ered By: Dean Felipe on 10-25-2022 Lymphocytes Auto (Unsp spec) [#/Vol] 2.35 10*3/uL 0.83-4.51 [facility] Basophil percentageOrdered B y: Dean Felipe on 10-25-2022 Basophils/100 WBC (Bld) 0.7 % 0-1 [facility] Bilirubin [Mass/Vol] 0.30 mg/dL 0.20-1.00 [facility] Comment on above: For patients on eltr ombopag therapy, use of Dimension [place] TBIL is not recommended. Chloride [Moles/Vol] 98 mmol/L 98-107 [facility] Cholesterol [Mass/Vol] 102 mg/dL <200 [facility] Comment on above: <200 mg/dL Desirable 200-240 mg/dL Borderline >240 mg/dL High Risk Eosinophils/100 WBC (Bld) 2.7 % 0-5 [facility] Glucose [Mass/Vol] 95 mg/dL 74-106 [facility] Neutrophils (Bld) [#/Vol] 6.2 10*3/uL 2.0-7.7 [facility] [facility] Neutrophils/100 WBC (Bld) 62.2 % 47-70 [facility] Potassium [Moles/Vol] 4.3 mmol/L 3.5-5.1 [facility] Protein [Mass/Vol] 7.4 g/dL 6.4-8.2 [facility] Sodium [Moles/Vol] 130 mmol/L 136-145 [facility] Triglyceride [Mass/Vol] 130 mg/dL <199 [facility] Comment on above: The drugs N-Acetylcy steine and Metamizole may falsely depress this assay.Serum Triglycerides Reference Interval Normal <150 mg/dL Borderline high 150 - 199 mg/dL High 200 - 499 mg/dL Very High > or = 500 mg/dL WBC (Bld) [#/Vol] 9.9 10*3/uL 4.4-11.0 [facility] Blood erythrocytes count (nu mber/volume)Ordered By: Dean Felipe on 10-25-2022 RBC (Bld) [#/Vol] 4.98 10*6/uL 4.6-6.2 [facility] Blood hemoglobin measurement (mass/volume)Ordered By: Dean Felipe on 10-25-2022 Hemoglobin (Bld) [Mass/Vol] 14.7 g/dL 13.0-16.5 [facility] Blood lymphocytes/100 leukoc ytesOrdered By: Dean Felipe on 10-25-2022 Lymphocytes/100 WBC (Bld) 23.7 % 19-41 [facility] Blood monocytes/100 leukocyt esOrdered By: Dean Felipe on 10-25-2022 Monocytes/100 WBC (Bld) 10.5 % 0-10 [facility] Blood platelet mean volumeOr dered By: Dean Felipe on 10-25-2022 Platelet mean volume (Bld) [Entitic vol] 9.4 fL 6.2-12.0 [facility] Determination of erythrocyte mean corpuscular volume (MCV)Ordered By: Dean Felipe on 10-25-2022 MCV (RBC) [Entitic vol] 86.9 fL 80-94 [facility] Hematocrit Auto (Bld) [Volum e fraction]Ordered By: Dean Felipe on 10-25-2022 Hematocrit (Bld) [Volume fraction] 43.3 % 40-54 [facility] Laboratory - Chemistry and C hemistry - challengeOrdered By: Dean Felipe on 10-25-2022 ALP [Catalytic activity/Vol] 110 U/L 45-117 [facility] ALT [Catalytic activity/Vol] 27 U/L 16-61 [facility] CO2 [Moles/Vol] 26.0 mmol/L 21.0-32.0 [facility] Globulin (S) [Mass/Vol] 3.8 g/dL 2.2-4.2 [facility] Urea nitrogen/Creatinine [Mass ratio] 15.7 mg/mg 10-20 [facility] Laboratory - Hematology and Cell countsOrdered By: Daen Felipe on 10-25-2022 Erythrocyte distribution width (RBC) [Entitic vol] 38.0 fL 35.1-43.9 [facility] Erythrocyte distribution width (RBC) [Ratio] 11.9 % 11.6-14.6 [facility] Immature granulocytes/100 WBC (Bld) 0.200 % 0.0-0.9 [facility] Comment on above: IG% - Immature Granu locytes (promyelocytes, myelocytes and metamyelocytes) > 1% indicates that a LEFT SHIFT is Present. MCH (RBC) [Entitic mass] 29.5 pg 27.0-32.0 [facility] Nucleated RBC/100 WBC (Bld) [Ratio] 0 % 0-5 [facility] MCHC Auto (RBC) [Mass/Vol]Or dered By: Dean Felipe on 10-25-2022 MCHC (RBC) [Mass/Vol] 33.9 g/dL 32-36 [facility] No Panel InformationOrdered By: Dean Felipe on 10-25-2022 Estimated GFR (MDRD) Amer 101 mL/min >60 [facility] Comment on above: GFR Calc Estimated GFR (MDRD) Non-Af Amer 83 mL/min >60 [facility] Comment on above: Non- GFR Calc Thyroid Stimulating Hormone (TSH) 1.99 uIU/mL 0.358-3.74 [facility] Vitamin D 25-Hydroxy 84.5 ng/mL [facility] Comment on above: Vitamin D 25(OH) Sta tus Range Deficiency <20 ng/mL (50nmol/L) Insufficiency 20 - 30 ng/mL (50 - 75 nmol/L) Sufficiency 30 - 100 ng/mL (75 - 250 nmol/L) Toxicity >100 ng/mL (>250 nmol/L) Platelets bldOrdered By: Dean Felipe on 10-25-2022 Platelets (Bld) [#/Vol] 326 10*3/uL 150-450 [facility] Serum or plasma albumin jung urement (mass/volume)Ordered By: Dean Felipe on 10-25-2022 Albumin [Mass/Vol] 3.6 g/dL 3.2-5.0 [facility] Serum or plasma albumin/glob ulin mass ratioOrdered By: Dean Felipe 10-25-2022 Albumin/Globulin [Mass ratio] 0.9 {ratio} 0.9-2.4 [facility] Serum or plasma calcium jung urement (mass/volume)Ordered By: Dean Felipe 10-25-2022 Calcium [Mass/Vol] 9.2 mg/dL 8.5-10.1 [facility] Serum or plasma cholesterol in HDL measurement (mass/volume)Ordered By: Dean Felipe on 10-25-2022 Cholesterol in HDL [Mass/Vol] 36 mg/dL >40 [facility] Comment on above: The drugs N-Acetylcy steine and Metamizole may falsely depress this assay. Reference Range HDL <40 mg/dL Low HDL Cholesterol HDL >or= 60 mg/dL High HDL Cholesterol Serum or plasma cholesterol in VLDL measurement (mass/volume)Ordered By: Dean Felipe on 10-25-2022 Cholesterol in VLDL [Mass/Vol] 26 mg/dL 5-40 [facility] Serum or plasma creatinine m easurement (mass/volume)Ordered By: Dean Felipe 10-25-2022 Creatinine [Mass/Vol] 0.96 mg/dL 0.70-1.30 [facility] Comment on above: The validity of the calculated GFR & GFRAA in patients over 70 years has not been determined. Clinical correlation is essential. Serum or plasma low density lipoprotein (LDL) cholesterol measurement (mass/volume)Ordered By: Dean Felipe on 10-25-2022 Cholesterol in LDL [Mass/Vol] 40 mg/dL 0-130 [facility] Serum or plasma urea nitroge n measurement (mass/volume)Ordered By: Dean Felipe on 10-25-2022 Urea nitrogen [Mass/Vol] 15 mg/dL 7-18 [facility] Thin prep Papanicolaou smear with manual screeningOrdered By: Dean Felipe on 10-25-2022 Thin prep Papanicolaou smear with manual screening 16 U/L 15-37 [facility] Thin prep Papanicolaou smear with manual screening 6 5-15 [facility] Whole blood hemoglobin A1c/t otal hemoglobin ratio (mass fraction)Ordered By: Dean Felipe on 10-25-2022 HbA1c (Bld) [Mass fraction] 6.0 % 3.8-5.6 [facility] Comment on above: Normal < 5.7 % Predi abetic 5.7 - 6.4 % Diabetic >or= 6.5 % Please note range changes. Absolute lymphocyte countOrd ered By: Dr. Feliciano on 05-25-2022 Lymphocytes Auto (Unsp spec) [#/Vol] 2.30 10*3/uL 0.83-4.51 [facility] Basophil percentageOrdered B y: Dr. Feliciano on 05-25-2022 Ammonia (P) [Moles/Vol] 19.0 umol/L 11-32 [facility] Basophil percentage 21.1 ug/mL 10.0-40.0 [facility] Basophils/100 WBC (Bld) 0.8 % 0-1 [facility] Bilirubin [Mass/Vol] 0.50 mg/dL 0.20-1.00 [facility] Comment on above: For patients on eltr ombopag therapy, use of Dimension [place] TBIL is not recommended. Chloride [Moles/Vol] 95 mmol/L 98-107 [facility] Eosinophils/100 WBC (Bld) 3.3 % 0-5 [facility] Glucose [Mass/Vol] 139 mg/dL 74-106 [facility] Comment on above: Fasting Glucose resu lt greater than or equal to 126 mg/dL suggests DIABETES MELLITUS per A.D.A. criteria. Neutrophils (Bld) [#/Vol] 6.3 10*3/uL 2.0-7.7 [facility] Neutrophils/100 WBC (Bld) 63.9 % 47-70 [facility] Potassium [Moles/Vol] 4.3 mmol/L 3.5-5.1 [facility] Protein [Mass/Vol] 7.3 g/dL 6.4-8.2 [facility] Sodium [Moles/Vol] 130 mmol/L 136-145 [facility] WBC (Bld) [#/Vol] 9.9 10*3/uL 4.4-11.0 [facility] Blood erythrocytes count (nu mber/volume)Ordered By: Dr. Feliciano on 05-25-2022 RBC (Bld) [#/Vol] 4.93 10*6/uL 4.6-6.2 [facility] Blood hemoglobin measurement (mass/volume)Ordered By: Dr. Feliciano on 05-25-2022 Hemoglobin (Bld) [Mass/Vol] 14.8 g/dL 13.0-16.5 [facility] Blood lymphocytes/100 leukoc ytesOrdered By: Dr. Feliciano on 05-25-2022 Lymphocytes/100 WBC (Bld) 23.3 % 19-41 [facility] Blood monocytes/100 leukocyt esOrdered By: Dr. Feliciano on 05-25-2022 Monocytes/100 WBC (Bld) 8.5 % 0-10 [facility] Blood platelet mean volumeOr dered By: Dr. Feliciano on 05-25-2022 Platelet mean volume (Bld) [Entitic vol] 8.8 fL 6.2-12.0 [facility] Determination of erythrocyte mean corpuscular volume (MCV)Ordered By: Dr. Feliciano on 05-25-2022 MCV (RBC) [Entitic vol] 85.0 fL 80-94 [facility] Hematocrit Auto (Bld) [Volum e fraction]Ordered By: Dr. Feliciano on 05-25-2022 Hematocrit (Bld) [Volume fraction] 41.9 % 40-54 [facility] Laboratory - Chemistry and C hemistry - challengeOrdered By: Dr. Feliciano on 05-25-2022 ALP [Catalytic activity/Vol] 97 U/L 45-117 [facility] ALT [Catalytic activity/Vol] 24 U/L 16-61 [facility] CO2 [Moles/Vol] 27.0 mmol/L 21.0-32.0 [facility] Globulin (S) [Mass/Vol] 3.4 g/dL 2.2-4.2 [facility] Urea nitrogen/Creatinine [Mass ratio] 13.9 mg/mg 10-20 [facility] Laboratory - Hematology and Cell countsOrdered By: Dr. Feliciano on 05-25-2022 Erythrocyte distribution width (RBC) [Entitic vol] 36.6 fL 35.1-43.9 [facility] Erythrocyte distribution width (RBC) [Ratio] 12.0 % 11.6-14.6 [facility] Immature granulocytes/100 WBC (Bld) 0.200 % 0.0-0.9 [facility] Comment on above: IG% - Immature Granu locytes (promyelocytes, myelocytes and metamyelocytes) > 1% indicates that a LEFT SHIFT is Present. MCH (RBC) [Entitic mass] 30.0 pg 27.0-32.0 [facility] Nucleated RBC/100 WBC (Bld) [Ratio] 0 % 0-5 [facility] MCHC Auto (RBC) [Mass/Vol]Or dered By: Dr. Feliciano on 05-25-2022 MCHC (RBC) [Mass/Vol] 35.3 g/dL 32-36 [facility] No Panel InformationOrdered By: Dr. Feliciano on 05-25-2022 Vitamin D 25-Hydroxy 63.8 ng/mL [facility] Comment on above: Vitamin D 25(OH) Sta tus Range Deficiency <20 ng/mL (50nmol/L) Insufficiency 20 - 30 ng/mL (50 - 75 nmol/L) Sufficiency 30 - 100 ng/mL (75 - 250 nmol/L) Toxicity >100 ng/mL (>250 nmol/L) Estimated GFR (MDRD) Amer 94 mL/min >60 [facility] Comment on above: GFR Calc Estimated GFR (MDRD) Non-Af Amer 78 mL/min >60 [facility] Comment on above: Non- GFR Calc Levetiracetam (Keppra) Level 17.9 ug/mL 10.0-40.0 [facility] Comment on above: Performed at: [facility] [id number] Director: Vickey Romeo MD, Phone: [phone] Prostate Specific Antigen Screen 1.29 ng/mL 0.00-4.00 [facility] Comment on above: This test was perfor med using the TPSA assay method for [employer] chemistry system. Values obtained with differentassay methods cannot be used interchangably.When changing PSA assays in the course of monitoring apatient, additional sequential testing should be carriedout to confirm baseline values. Thyroid Stimulating Hormone (TSH) 3.12 uIU/mL 0.358-3.74 [facility] Platelets bldOrdered By: Dr. Feliciano on 05-25-2022 Platelets (Bld) [#/Vol] 326 10*3/uL 150-450 [facility] Serum or plasma albumin jung urement (mass/volume)Ordered By: Dr. Feliciano on 05-25-2022 Albumin [Mass/Vol] 3.9 g/dL 3.2-5.0 [facility] Serum or plasma albumin/glob ulin mass ratioOrdered By: Dr. Feliciano on 05-25-2022 Albumin/Globulin [Mass ratio] 1.1 {ratio} 0.9-2.4 [facility] Serum or plasma calcium jung urement (mass/volume)Ordered By: Dr. Feliciano on 05-25-2022 Calcium [Mass/Vol] 9.2 mg/dL 8.5-10.1 [facility] Serum or plasma creatinine m easurement (mass/volume)Ordered By: Dr. Feliciano on 05-25-2022 Creatinine [Mass/Vol] 1.01 mg/dL 0.70-1.30 [facility] Comment on above: The validity of the calculated GFR & GFRAA in patients over 70 years has not been determined. Clinical correlation is essential. Serum or plasma urea nitroge n measurement (mass/volume)Ordered By: Dr. Feliciano on 05-25-2022 Urea nitrogen [Mass/Vol] 14 mg/dL 7-18 [facility] Thin prep Papanicolaou smear with manual screeningOrdered By: Dr. Feliciano on 05-25-2022 Thin prep Papanicolaou smear with manual screening 19 U/L 15-37 [facility] Thin prep Papanicolaou smear with manual screening 8 5-15 [facility] Absolute lymphocyte counton 10-12-2021 Lymphocytes Auto (Unsp spec) [#/Vol] 2.74 10*3/uL 0.83-4.51 [facility] Work Phone: Basophil percentageon 2021 Basophils/100 WBC (Bld) 0.7 % 0-1 [facility] Work Phone: Bilirubin [Mass/Vol] 0.20 mg/dL 0.20-1.00 [facility] Work Phone: Comment on above: For patients on eltr ombopag therapy, use of Dimension [place] TBIL is not recommended. Chloride [Moles/Vol] 99 mmol/L 98-107 [facility] Work Phone: Eosinophils/100 WBC (Bld) 2.3 % 0-5 [facility] Work Phone: Glucose [Mass/Vol] 89 mg/dL 74-106 [facility] Work Phone: Neutrophils (Bld) [#/Vol] 6.1 10*3/uL 2.0-7.7 [facility] Work Phone: Neutrophils/100 WBC (Bld) 59.9 % 47-70 [facility] Work Phone: Potassium [Moles/Vol] 4.3 mmol/L 3.5-5.1 [facility] Work Phone: Protein [Mass/Vol] 7.3 g/dL 6.4-8.2 [facility] Work Phone: Sodium [Moles/Vol] 134 mmol/L 136-145 [facility] Work Phone: WBC (Bld) [#/Vol] 10.2 10*3/uL 4.4-11.0 [facility] Work Phone: Blood erythrocytes count (nu mber/volume)on 10-12-2021 RBC (Bld) [#/Vol] 5.21 10*6/uL 4.6-6.2 [facility] Work Phone: Blood hemoglobin measurement (mass/volume)on 10-12-2021 Hemoglobin (Bld) [Mass/Vol] 15.5 g/dL 13.0-16.5 [facility] Work Phone: [phone] Blood lymphocytes/100 leukoc yteson 10-12-2021 Lymphocytes/100 WBC (Bld) 26.9 % 19-41 [facility] Work Phone: [phone] Blood monocytes/100 leukocyt eson 10-12-2021 Monocytes/100 WBC (Bld) 9.8 % 0-10 [facility] Work Phone: [phone] Blood platelet mean volumeon 10-12-2021 Platelet mean volume (Bld) [Entitic vol] 9.2 fL 6.2-12.0 [facility] Work Phone: Determination of erythrocyte mean corpuscular volume (MCV)on 10-12-2021 MCV (RBC) [Entitic vol] 87.1 fL 80-94 [facility] Work Phone: Hematocrit Auto (Bld) [Volum e fraction]on 10-12-2021 Hematocrit (Bld) [Volume fraction] 45.4 % 40-54 [facility] Work Phone: Laboratory - Chemistry and C hemistry - challengeon 10-12-2021 ALP [Catalytic activity/Vol] 93 U/L 45-117 [facility] Work Phone: ALT [Catalytic activity/Vol] 34 U/L 16-61 [facility] Work Phone: CO2 [Moles/Vol] 26.0 mmol/L 21.0-32.0 [facility] Work Phone: Globulin (S) [Mass/Vol] 3.7 g/dL 2.2-4.2 [facility] Work Phone: [phone] Urea nitrogen/Creatinine [Mass ratio] 13.5 mg/mg 10-20 [facility] Work Phone: [phone] Laboratory - Hematology and Cell countson 10-12-2021 Erythrocyte distribution width (RBC) [Entitic vol] 39.1 fL 35.1-43.9 [facility] Work Phone: [phone] Erythrocyte distribution width (RBC) [Ratio] 12.2 % 11.6-14.6 [facility] Work Phone: [phone] Immature granulocytes/100 WBC (Bld) 0.400 % 0.0-0.9 [facility] Work Phone: [phone] Comment on above: IG% - Immature Granu locytes (promyelocytes, myelocytes and metamyelocytes) > 1% indicates that a LEFT SHIFT is Present. MCH (RBC) [Entitic mass] 29.8 pg 27.0-32.0 [facility] Work Phone: [phone] Nucleated RBC/100 WBC (Bld) [Ratio] 0 % 0-5 [facility] Work Phone: [phone] MCHC Auto (RBC) [Mass/Vol]on 10-12-2021 MCHC (RBC) [Mass/Vol] 34.1 g/dL 32-36 [facility] Work Phone: [phone] Panel Informationon 10-12 Estimated GFR (MDRD) Amer 110 mL/min >60 [facility] Work Phone: [phone] Comment on above: GFR Calc Estimated GFR (MDRD) Non-Af Amer 91 mL/min >60 [facility] Work Phone: [phone] Comment on above: Non- GFR Calc Thyroid Stimulating Hormone (TSH) 2.51 uIU/mL 0.358-3.74 [facility] Work Phone: [phone] Vitamin D 25-Hydroxy 58.9 ng/mL [facility] Work Phone: Comment on above: Vitamin D 25(OH) Sta tus Range Deficiency <20 ng/mL (50nmol/L) Insufficiency 20 - 30 ng/mL (50 - 75 nmol/L) Sufficiency 30 - 100 ng/mL (75 - 250 nmol/L) Toxicity >100 ng/mL (>250 nmol/L) Platelets bldon 10-12-2021 Platelets (Bld) [#/Vol] 339 10*3/uL 150-450 [facility] Work Phone: Serum or plasma albumin jung urement (mass/volume)on 10-12-2021 Albumin [Mass/Vol] 3.6 g/dL 3.2-5.0 [facility] Work Phone: Serum or plasma albumin/glob ulin mass ratioon 10-12-2021 Albumin/Globulin [Mass ratio] 1.0 {ratio} 0.9-2.4 [facility] Work Phone: Serum or plasma calcium jung urement (mass/volume)on 10-12-2021 Calcium [Mass/Vol] 9.3 mg/dL 8.5-10.1 [facility] Work Phone: Serum or plasma creatinine m easurement (mass/volume)on 10-12-2021 Creatinine [Mass/Vol] 0.89 mg/dL 0.70-1.30 [facility] Work Phone: Comment on above: The validity of the calculated GFR & GFRAA in patients over 70 years has not been determined. Clinical correlation is essential. Serum or plasma urea nitroge n measurement (mass/volume)on 10-12-2021 Urea nitrogen [Mass/Vol] 12 mg/dL 7-18 [facility] Work Phone: [phone] Thin prep Papanicolaou smear with manual screeningon 10-12-2021 Thin prep Papanicolaou smear with manual screening 17 U/L 15-37 [facility] Work Phone: [phone] Thin prep Papanicolaou smear with manual screening 9 5-15 [facility] Work Phone: Basophil percentageon 2021 Ammonia (P) [Moles/Vol] 19.0 umol/L 11-32 [facility] Work Phone: Chloride [Moles/Vol] 99 mmol/L 98-107 [facility] Work Phone: Glucose [Mass/Vol] 131 mg/dL 74-106 [facility] Work Phone: Comment on above: Fasting Glucose resu lt greater than or equal to 126 mg/dL suggests DIABETES MELLITUS per A.D.A. criteria. Potassium [Moles/Vol] 4.3 mmol/L 3.5-5.1 [facility] Work Phone: Sodium [Moles/Vol] 134 mmol/L 136-145 [facility] Work Phone: Laboratory - Chemistry and C hemistry - challengeon 09-28-2021 CO2 [Moles/Vol] 30.0 mmol/L 21.0-32.0 [facility] Work Phone: Urea nitrogen/Creatinine [Mass ratio] 14.6 mg/mg 10-20 [facility] Work Phone: No Panel Informationon 09-28 Estimated GFR (MDRD) Amer 93 mL/min >60 [facility] Work Phone: Comment on above: GFR Calc Estimated GFR (MDRD) Non-Af Amer 76 mL/min >60 [facility] Work Phone: Comment on above: Non- GFR Calc Levetiracetam (Keppra) Level 15.9 ug/mL 10.0-40.0 [facility] Work Phone: Comment on above: Performed at: - [facility] [id number] Director: Vickey Romeo MD, Phone: [phone] Serum or plasma calcium jung urement (mass/volume)on 09-28-2021 Calcium [Mass/Vol] 9.3 mg/dL 8.5-10.1 [facility] Work Phone: Serum or plasma creatinine m easurement (mass/volume)on 09-28-2021 Creatinine [Mass/Vol] 1.03 mg/dL 0.70-1.30 [facility] Work Phone: Comment on above: The validity of the calculated GFR & GFRAA in patients over 70 years has not been determined. Clinical correlation is essential. Serum or plasma urea nitroge n measurement (mass/volume)on 09-28-2021 Urea nitrogen [Mass/Vol] 15 mg/dL 7-18 [facility] Work Phone: Thin prep Papanicolaou smear with manual screeningon 09-28-2021 Thin prep Papanicolaou smear with manual screening 5 5-15 [facility] Work Phone: Basophil percentageon 2021 Ammonia (P) [Moles/Vol] 16.0 umol/L 11-32 [facility] Work Phone: [phone] Chloride [Moles/Vol] 97 mmol/L 98-107 [facility] Work Phone: [phone] Glucose [Mass/Vol] 126 mg/dL 74-106 [facility] Work Phone: Comment on above: Fasting Glucose resu lt greater than or equal to 126 mg/dL suggests DIABETES MELLITUS per A.D.A. criteria. Potassium [Moles/Vol] 4.0 mmol/L 3.5-5.1 [facility] Work Phone: Sodium [Moles/Vol] 133 mmol/L 136-145 [facility] Work Phone: [phone] Laboratory - Chemistry and C hemistry - challengeon 07-13-2021 CO2 [Moles/Vol] 28.0 mmol/L 21.0-32.0 [facility] Work Phone: [phone] Cobalamin (Vitamin B12) [Mass/Vol] 645 pg/mL 211-911 [facility] Work Phone: [phone] Urea nitrogen/Creatinine [Mass ratio] 11.7 mg/mg 10-20 [facility] Work Phone: [phone] No Panel Informationon 07-13 Estimated GFR (MDRD) Amer 102 mL/min >60 [facility] Work Phone: Comment on above: GFR Calc Estimated GFR (MDRD) Non-Af Amer 85 mL/min >60 [facility] Work Phone: Comment on above: Non- GFR Calc Levetiracetam (Keppra) Level 8.8 ug/mL 10.0-40.0 [facility] Work Phone: Comment on above: Performed at: [facility] [address] [id number] Director: Vickey Romeo MD, Phone: [phone] Phenobarbital Level 16.2 ug/mL 10.0-40.0 [facility] Work Phone: Vitamin D 25-Hydroxy 66.8 ng/mL [facility] Work Phone: Comment on above: Vitamin D 25(OH) Sta tus Range Deficiency <20 ng/mL (50nmol/L) Insufficiency 20 - 30 ng/mL (50 - 75 nmol/L) Sufficiency 30 - 100 ng/mL (75 - 250 nmol/L) Toxicity >100 ng/mL (>250 nmol/L) Serum or plasma calcium jung urement (mass/volume)on 07-13-2021 Calcium [Mass/Vol] 8.7 mg/dL 8.5-10.1 [facility] Work Phone: Serum or plasma creatinine m easurement (mass/volume)on 07-13-2021 Creatinine [Mass/Vol] 0.94 mg/dL 0.70-1.30 [facility] Work Phone: Comment on above: The validity of the calculated GFR & GFRAA in patients over 70 years has not been determined. Clinical correlation is essential. Serum or plasma urea nitroge n measurement (mass/volume)on 07-13-2021 Urea nitrogen [Mass/Vol] 11 mg/dL 7-18 [facility] Work Phone: Thin prep Papanicolaou smear with manual screeningon 07-13-2021 Thin prep Papanicolaou smear with manual screening 8 5-15 [facility] Work Phone: Absolute lymphocyte counton 04-13-2021 Lymphocytes Auto (Unsp spec) [#/Vol] 2.41 10*3/uL 0.83-4.51 [facility] Work Phone: Basophil percentageon 2021 Basophils/100 WBC (Bld) 0.6 % 0-1 [facility] Work Phone: Bilirubin [Mass/Vol] 0.40 mg/dL 0.20-1.00 [facility] Work Phone: Comment on above: For patients on eltr ombopag therapy, use of Dimension [place] TBIL is not recommended. Chloride [Moles/Vol] 98 mmol/L 98-107 [facility] Work Phone: Eosinophils/100 WBC (Bld) 1.8 % 0-5 [facility] Work Phone: Glucose [Mass/Vol] 81 mg/dL 74-106 [facility] Work Phone: Neutrophils (Bld) [#/Vol] 8.7 10*3/uL 2.0-7.7 [facility] Work Phone: Neutrophils/100 WBC (Bld) 69.2 % 47-70 [facility] Work Phone: Potassium [Moles/Vol] 4.4 mmol/L 3.5-5.1 [facility] Work Phone: Protein [Mass/Vol] 7.4 g/dL 6.4-8.2 [facility] Work Phone: Sodium [Moles/Vol] 131 mmol/L 136-145 [facility] Work Phone: WBC (Bld) [#/Vol] 12.5 10*3/uL 4.4-11.0 [facility] Work Phone: Blood erythrocytes count (nu mber/volume)on 04-13-2021 RBC (Bld) [#/Vol] 5.20 10*6/uL 4.6-6.2 [facility]: Blood hemoglobin measurement (mass/volume)on 04-13-2021 Hemoglobin (Bld) [Mass/Vol] 15.2 g/dL 13.0-16.5 [facility] Work Phone: Blood lymphocytes/100 leukoc yteson 04-13-2021 Lymphocytes/100 WBC (Bld) 19.2 % 19-41 [facility] Work Phone: Blood monocytes/100 leukocyt eson 04-13-2021 Monocytes/100 WBC (Bld) 8.9 % 0-10 [facility] Work Phone: Blood platelet mean volumeon 04-13-2021 Platelet mean volume (Bld) [Entitic vol] 9.1 fL 6.2-12.0 [facility] Work Phone: Determination of erythrocyte mean corpuscular volume (MCV)on 04-13-2021 MCV (RBC) [Entitic vol] 84.2 fL 80-94 [facility] Work Phone: Hematocrit Auto (Bld) [Volum e fraction]on 04-13-2021 Hematocrit (Bld) [Volume fraction] 43.8 % 40-54 [facility] Work Phone: Laboratory - Chemistry and C hemistry - challengeon 04-13-2021 ALP [Catalytic activity/Vol] 107 U/L 45-117 [facility] Work Phone: ALT [Catalytic activity/Vol] 29 U/L 16-61 [facility] Work Phone: CO2 [Moles/Vol] 24.0 mmol/L 21.0-32.0 [facility] Work Phone: Globulin (S) [Mass/Vol] 3.8 g/dL 2.2-4.2 [facility] Work Phone: Urea nitrogen/Creatinine [Mass ratio] 13.2 mg/mg 10-20 [facility] Work Phone: [phone] Laboratory - Hematology and Cell countson 04-13-2021 Erythrocyte distribution width (RBC) [Entitic vol] 36.4 fL 35.1-43.9 [facility] Work Phone: [phone] Erythrocyte distribution width (RBC) [Ratio] 12.0 % 11.6-14.6 [facility] Work Phone: [phone] Immature granulocytes/100 WBC (Bld) 0.300 % 0.0-0.9 [facility] Work Phone: [phone] Comment on above: IG% - Immature Granu locytes (promyelocytes, myelocytes and metamyelocytes) > 1% indicates that a LEFT SHIFT is Present. MCH (RBC) [Entitic mass] 29.2 pg 27.0-32.0 [facility] Work Phone: [phone] Nucleated RBC/100 WBC (Bld) [Ratio] 0 % 0-5 [facility] Work Phone: [phone] MCHC Auto (RBC) [Mass/Vol]on 04-13-2021 MCHC (RBC) [Mass/Vol] 34.7 g/dL 32-36 [facility] Work Phone: [phone] No Panel Informationon 04-13 Estimated GFR (MDRD) Amer 107 mL/min >60 [facility] Work Phone: [phone] Comment on above: GFR Calc Estimated GFR (MDRD) Non-Af Amer 89 mL/min >60 [facility] Work Phone: [phone] Comment on above: Non- GFR Calc Prostate Specific Antigen Screen 0.80 ng/mL 0.00-4.00 [facility] Work Phone: [phone] Comment on above: This test was perfor med using the TPSA assay method for the[facility] system. Values obtained with differentassay methods cannot be used interchangably.When changing PSA assays in the course of monitoring apatient, additional sequential testing should be carriedout to confirm baseline values. Thyroid Stimulating Hormone (TSH) 2.58 uIU/mL 0.358-3.74 [facility] Work Phone: Vitamin D 25-Hydroxy 64.2 ng/mL [facility] Work Phone: Comment on above: Vitamin D 25(OH) Sta tus Range Deficiency <20 ng/mL (50nmol/L) Insufficiency 20 - 30 ng/mL (50 - 75 nmol/L) Sufficiency 30 - 100 ng/mL (75 - 250 nmol/L) Toxicity >100 ng/mL (>250 nmol/L) Platelets bldon 04-13-2021 Platelets (Bld) [#/Vol] 328 10*3/uL 150-450 [facility] Work Phone: Serum or plasma albumin jung urement (mass/volume)on 04-13-2021 Albumin [Mass/Vol] 3.6 g/dL 3.2-5.0 [facility] Work Phone: Serum or plasma albumin/glob ulin mass ratioon 04-13-2021 Albumin/Globulin [Mass ratio] 0.9 {ratio} 0.9-2.4 [facility] Work Phone: Serum or plasma calcium jung urement (mass/volume)on 04-13-2021 Calcium [Mass/Vol] 9.2 mg/dL 8.5-10.1 [facility] Work Phone: Serum or plasma creatinine m easurement (mass/volume)on 04-13-2021 Creatinine [Mass/Vol] 0.91 mg/dL 0.70-1.30 [facility] Work Phone: Comment on above: The validity of the calculated GFR & GFRAA in patients over 70 years has not been determined. Clinical correlation is essential. Serum or plasma urea nitroge n measurement (mass/volume)on 04-13-2021 Urea nitrogen [Mass/Vol] 12 mg/dL 7-18 [facility] Work Phone: Thin prep Papanicolaou smear with manual screeningon 04-13-2021 Thin prep Papanicolaou smear with manual screening 15 U/L 15-37 [facility] Work Phone: Thin prep Papanicolaou smear with manual screening 9 5-15 [facility] Work Phone: Vital Signs Date Time Vital Sign Value Performing Clinician Faci lity 01-12-2025 13:44-0400 Heart rate 78 /min Eddi Lynn MD Work Phone: [facility] 01-12-2025 13:42-0400 Body temperature 98 [degF] Eddi Lynn MD Work Phone: [facility] 01-12-2025 13:42-0400 Diastolic blood pressure 57 mm[Hg] Eddi Lynn MD Work Phone: [facility] 01-12-2025 13:42-0400 Respiratory rate 17 /min Eddi Lynn MD Work Phone: [facility] 01-12-2025 13:42-0400 SaO2% (BldA) [Mass fraction] 95 % Eddi Lynn MD Work Phone: [facility] 01-12-2025 13:42-0400 Systolic blood pressure 124 mm[Hg] Eddi Lynn MD Work Phone: [facility] 01-11-2025 18:00-0400 Inhaled oxygen flow rate 2 L/min Eddi Lynn MD Work Phone: [facility] 01-09-2025 09:46-0400 Body height 177.8 cm Eddi Lynn MD Work Phone: 3(033)610-197895 [address] 01-09-2025 09:46-0400 Body weight 107 kg Eddi Lynn MD Work Phone: [facility] 01-09-2025 01:31-0400 Body mass index (BMI) [Ratio] 33.8 kg/m2 Eddi Lynn MD Work Phone: [facility] 01-02-2025 14:15-0400 Heart rate 74 /min Eddi Lynn MD Work Phone: [facility] 01-02-2025 14:14-0400 Body temperature 97.5 [degF] Eddi Lynn MD Work Phone: [facility] 01-02-2025 14:14-0400 Diastolic blood pressure 77 mm[Hg] Eddi Lynn MD Work Phone: [facility] 01-02-2025 14:14-0400 Respiratory rate 17 /min Eddi Lynn MD Work Phone: [facility] 01-02-2025 14:14-0400 SaO2% (BldA) [Mass fraction] 95 % Eddi Lynn MD Work Phone: [facility] 01-02-2025 14:14-0400 Systolic blood pressure 140 mm[Hg] Eddi Lynn MD Work Phone: 1(342)401-438454 [place] [address] 01-02-2025 05:17-0400 Body mass index (BMI) [Ratio] 31.1 kg/m2 Eddi Lynn MD Work Phone: 8(997)992-586154 [place] [address] 01-02-2025 05:17-0400 Body weight 104.5 kg Eddi Lynn MD Work Phone: 1(660)176-232205 [place] [address] 12-30-2024 21:01-0400 Body temperature 98.1 [degF] Eddi Lynn MD Work Phone: 3(637)998-820554 [place] [address] 12-30-2024 21:01-0400 Diastolic blood pressure 89 mm[Hg] Eddi Lynn MD Work Phone: 7(893)647-665454 [place] [address] 12-30-2024 21:01-0400 Heart rate 91 /min Eddi Lynn MD Work Phone: 9(114)188-228354 [place] [address] 12-30-2024 21:01-0400 Respiratory rate 20 /min Eddi Lynn MD Work Phone: 7(124)592-580654 [place] [address] 12-30-2024 21:01-0400 SaO2% (BldA) [Mass fraction] 96 % Eddi Lynn MD Work Phone: [facility] 12-30-2024 21:01-0400 Systolic blood pressure 175 mm[Hg] Eddi Lynn MD Work Phone: 4(310)895-288805 [place] [address] 12-30-2024 15:48-0400 Body height 182.88 cm Eddi Lynn MD Work Phone: [facility] 12-30-2024 15:48-0400 Body mass index (BMI) [Ratio] 31.1 kg/m2 Eddi Lynn MD Work Phone: [facility] 12-30-2024 15:48-0400 Body weight 104.4 kg Eddi Lynn MD Work Phone: [facility] 12-22-2024 20:26-0400 Body temperature 98.1 [degF] Eddi Lynn MD Work Phone: [facility] 12-22-2024 20:26-0400 Diastolic blood pressure 113 mm[Hg] Eddi Lynn MD Work Phone: [facility] 12-22-2024 20:26-0400 Heart rate 75 /min Eddi Lynn MD Work Phone: [facility] 12-22-2024 20:26-0400 Respiratory rate 20 /min Eddi Lynn MD Work Phone: [facility] 12-22-2024 20:26-0400 SaO2% (BldA) [Mass fraction] 98 % Eddi Lynn MD Work Phone: [facility] 12-22-2024 20:26-0400 Systolic blood pressure 186 mm[Hg] Eddi Lynn MD Work Phone: [facility] 12-22-2024 18:52-0400 Body height 172.72 cm Eddi Lynn MD Work Phone: [facility] 12-22-2024 18:52-0400 Body mass index (BMI) [Ratio] 34.9 kg/m2 Eddi Lynn MD Work Phone: [facility] 12-22-2024 18:52-0400 Body weight 104.3 kg Eddi Lynn MD Work Phone: [facility] 12-19-2024 16:28-0400 Body temperature 97.5 [degF] Eddi Lynn MD Work Phone: [facility] 12-19-2024 16:28-0400 Diastolic blood pressure 84 mm[Hg] Eddi Lynn MD Work Phone: [facility] 12-19-2024 16:28-0400 Heart rate 77 /min Eddi Lynn MD Work Phone: 2(311)707-446705 [place] [address] 12-19-2024 16:28-0400 Respiratory rate 14 /min Eddi Lynn MD Work Phone: [facility] 12-19-2024 16:28-0400 SaO2% (BldA) [Mass fraction] 96 % Eddi Lynn MD Work Phone: [facility] 12-19-2024 16:28-0400 Systolic blood pressure 167 mm[Hg] Eddi Lynn MD Work Phone: 9(421)641-532095 [address] 12-19-2024 12:03-0400 Body mass index (BMI) [Ratio] 34.5 kg/m2 Eddi Lynn MD Work Phone: 3(862)296-334495 [address] 12-19-2024 12:03-0400 Body weight 103.1 kg Eddi Lynn MD Work Phone: 8(474)860-605395 [address] 11-26-2024 10:53-0400 Diastolic blood pressure 80 mm[Hg] Eddi Lynn MD Work Phone: 3(073)640-407795 [address] 11-26-2024 10:53-0400 Heart rate 93 /min Eddi Lynn MD Work Phone: [facility] 11-26-2024 10:53-0400 Systolic blood pressure 170 mm[Hg] Eddi Lynn MD Work Phone: 2(952)757-712005 [place] [address] 11-26-2024 10:30-0400 Body height 172.72 cm Eddi Lynn MD Work Phone: 2(613)636-730795 [address] 11-26-2024 10:30-0400 Body mass index (BMI) [Ratio] 34 kg/m2 Eddi Lynn MD Work Phone: 5(994)384-188105 [place] [address] 11-26-2024 10:30-0400 Body temperature 97.8 [degF] Eddi Lynn MD Work Phone: [facility] 11-26-2024 10:30-0400 Body weight 101.6 kg Eddi Lynn MD Work Phone: [facility] 11-26-2024 10:30-0400 Respiratory rate 15 /min Eddi Lynn MD Work Phone: [facility] 11-26-2024 10:30-0400 SaO2% (BldA) [Mass fraction] 97 % Eddi Lynn MD Work Phone: [facility] 05-28-2024 09:15-0500 Body height 172.[address] Dean Felipe MD Work Phone: [facility] 05-28-2024 09:15-0500 Body mass index (BMI) [Ratio] 34.7 kg/m2 Dr. Dean Felipe MD Work Phone: [facility] 05-28-2024 09:15-0500 Body temperature 98.4 [degF] Dr. Dean Felipe MD Work Phone: [facility] 05-28-2024 09:15-0500 Body weight 103.[address] Dean Felipe MD Work Phone: [facility] 05-28-2024 09:15-0500 Diastolic blood pressure 86 mm[Hg] Dr. Dean Felipe MD Work Phone: [facility] 05-28-2024 09:15-0500 Heart rate 86 /min Dr. Dean Felipe MD Work Phone: [facility] 05-28-2024 09:15-0500 Respiratory rate 16 /min Dr. Dean Felipe MD Work Phone: [facility] 05-28-2024 09:15-0500 SaO2% (BldA) [Mass fraction] 96 % Dr. Dean Felipe MD Work Phone: [facility] 05-28-2024 09:15-0500 Systolic blood pressure 144 mm[Hg] Dr. Dean Felipe MD Work Phone: 9(511)384-725978 [place] [address] 05-22-2024 20:02-0500 Body temperature 97.6 [degF] Dr. Dean Felipe MD Work Phone: 7(253)533-466778 [place] [address] 05-22-2024 20:02-0500 Diastolic blood pressure 90 mm[Hg] Dr. Dean Felipe MD Work Phone: 0(605)732-370277 [place] [address] 05-22-2024 20:02-0500 Heart rate 82 /min Dr. Dean Felipe MD Work Phone: 8(264)276-445877 [place] [address] 05-22-2024 20:02-0500 Respiratory rate 18 /min Dr. Dean Felipe MD Work Phone: 5(734)034-513877 [place] [address] 05-22-2024 20:02-0500 SaO2% (BldA) [Mass fraction] 96 % Dr. Dean Felipe MD Work Phone: 8(979)214-445277 [place] [address] 05-22-2024 20:02-0500 Systolic blood pressure 175 mm[Hg] Dr. Dean Felipe MD Work Phone: 1(790)084-907777 [place] [address] 05-22-2024 19:23-0500 Body mass index (BMI) [Ratio] 35.2 kg/m2 Dr. Dean Felipe MD Work Phone: 9(062)447-925077 [place] [address] 05-22-2024 19:23-0500 Body weight 105.[address] Dean Felipe MD Work Phone: 9(843)601-700678 [place] [address] 05-30-2023 09:30-0500 Body temperature 97.3 [degF] Dr. Dean Felipe Work Phone: 5(102)367-379278 [place] [address] 05-30-2023 09:30-0500 Body weight 98.[address] Dean Felipe Work Phone: 0(825)982-136178 [place] [address] 05-30-2023 09:30-0500 Diastolic blood pressure 90 mm[Hg] Dr. Dean Felipe Work Phone: 0(865)716-332077 [place] [address] 05-30-2023 09:30-0500 Heart rate 67 /min Dr. Dean Felipe Work Phone: [facility] 05-30-2023 09:30-0500 Respiratory rate 13 /min Dr. Dean Felipe Work Phone: [facility] 05-30-2023 09:30-0500 SaO2% (BldA) [Mass fraction] 99 % Dr. Dean Felipe Work Phone: [facility] 05-30-2023 09:30-0500 Systolic blood pressure 140 mm[Hg] Dr. Dean Felipe Work Phone: 0(156)455-597784 [address] 11-28-2022 08:35-0400 Body height 172.[address] Dean Felipe Work Phone: 4(880)364-737577 [place] [address] 11-28-2022 08:35-0400 Body mass index (BMI) [Ratio] 32.5 kg/m2 Dr. Dean Felipe Work Phone: 3(102)630-873177 [place] [address] 11-28-2022 08:35-0400 Body temperature 97.8 [degF] Dr. Dean Felipe Work Phone: 0(595)462-522084 [address] 11-28-2022 08:35-0400 Body weight 97.[address] Dean Felipe Work Phone: 5(839)819-307777 [place] [address] 11-28-2022 08:35-0400 Diastolic blood pressure 90 mm[Hg] Dr. Dean Felipe Work Phone: 4(928)146-521078 [place] [address] 11-28-2022 08:35-0400 Heart rate 80 /min Dr. Dean Felipe Work Phone: 2(576)617-793478 [place] [address] 11-28-2022 08:35-0400 Respiratory rate 17 /min Dr. Dean Felipe Work Phone: 7(251)545-821578 [place] [address] 11-28-2022 08:35-0400 Systolic blood pressure 148 mm[Hg] Dr. Dean Felipe Work Phone: [facility] 11-05-2022 09:48-0400 SaO2% (BldA) [Mass fraction] 94 % Dr. Dean Felipe Work Phone: [facility] 11-05-2022 09:38-0400 Body temperature 97.8 [degF] Dr. Dean Felipe Work Phone: [facility] 11-05-2022 09:38-0400 Diastolic blood pressure 83 mm[Hg] Dr. Dean Felipe Work Phone: 6(029)897-657678 [place] [address] 11-05-2022 09:38-0400 Heart rate 80 /min Dr. Dean Felipe Work Phone: 9(935)668-879678 [place] [address] 11-05-2022 09:38-0400 Respiratory rate 16 /min Dr. Dean Felipe Work Phone: 9(537)010-323178 [place] [address] 11-05-2022 09:38-0400 Systolic blood pressure 161 mm[Hg] Dr. Dean Felipe Work Phone: 7(902)901-383284 [address] 11-05-2022 07:59-0400 Inhaled oxygen flow rate 2 L/min Dr. Dean Felipe Work Phone: [facility] 11-04-2022 09:14-0400 Body temperature 98.4 [degF] Dr. Dean Felipe Work Phone: 5(222)804-785578 [place] [address] 11-04-2022 09:14-0400 Diastolic blood pressure 75 mm[Hg] Dr. Dean Felipe Work Phone: 8(205)556-227078 [place] [address] 11-04-2022 09:14-0400 Heart rate 86 /min Dr. Dean Felipe Work Phone: 8(493)783-268878 [place] [address] 11-04-2022 09:14-0400 Inhaled oxygen flow rate 2 L/min Dr. Dean Felipe Work Phone: [facility] 11-04-2022 09:14-0400 Respiratory rate 18 /min Dr. Dean Felipe Work Phone: [facility] 11-04-2022 09:14-0400 SaO2% (BldA) [Mass fraction] 98 % Dr. Dean Felipe Work Phone: [facility] 11-04-2022 09:14-0400 Systolic blood pressure 160 mm[Hg] Dr. Dean Felipe Work Phone: [facility] 11-04-2022 07:10-0400 Body height 172.[address] Dean Felipe Work Phone: [facility] 11-04-2022 07:10-0400 Body mass index (BMI) [Ratio] 33.2 kg/m2 Dr. Dean Felipe Work Phone: [facility] 11-04-2022 07:10-0400 Body weight 99.[address] Dean Felipe Work Phone: [facility] 07-27-2021 13:39-0400 Body temperature 97.8 [degF] Dr. Dean Felipe Work Phone: [facility] Work Phone: 07-27-2021 13:39-0400 Body weight 102.[address] Dean Felipe Work Phone: [facility] Work Phone: 07-27-2021 13:39-0400 Diastolic blood pressure 87 mm[Hg] Dr. Dean Felipe Work Phone: [facility] Work Phone: 07-27-2021 13:39-0400 Heart rate 91 /min Dr. Dean Felipe Work Phone: [facility] Work Phone: 07-27-2021 13:39-0400 Respiratory rate 18 /min Dr. Dean Felipe Work Phone: [facility] Work Phone: 07-27-2021 13:39-0400 SaO2% (BldA) [Mass fraction] 98 % Dr. Dean Felipe Work Phone: [facility] Work Phone: 07-27-2021 13:39-0400 Systolic blood pressure 153 mm[Hg] Dr. Dean Felipe Work Phone: [facility] Work Phone: Encounters Encounter Date Encounter Type Care Provider Facility Start: 01-12-2025 Dr. Kal Laguna DO -[facility] Work Phone: Start: 01-11-2025 Dr. Corey Pelaez DO -[facility] Work Phone: Start: 01-10-2025 Dr. Corey Pelaez DO -[facility] Work Phone: Start: 01-09-2025 Dr. Corey Pelaez DO -[facility] Work Phone: Start: 01-09-2025 ambulatory Eddi Lynn Facility:[facility] Start: 01-09-2025 Dr. Sawyer Buck MD -[facility] Start: 01-09-2025 ambulatory Katie Rosenbaum Facility :[facility] [...] Physicians Work Phone: Start: 12-30-2024 ambulatory Jorge Vasquez ty:[facility] Start: 12-30-2024 End: 01-02-2025 Evaluation and management of inpatient Dr. Jorge Herrera DO -Intensive Care Unit Work Phone: Start: 12-30-2024 End: 01-02-2025 Dr. Alice Mckeon DO -Progressive Care Un it Work Phone: Start: 12-25-[address] Eddi Lynn MD -[facility] Start: 12-25-2024 End: 12-25-2024 Dr. Eddi Lynn MD -Laboratory [place] [facility] Start: 12-25-2024 End: 12-25-2024 ambulatory Eddi Lynn Facility:[facility] Start: 12-22-2024 End: 12-22-2024 Dr. Chet Grover MD -Emergency Departmen t Work Phone: Start: 12-22-2024 End: 12-22-2024 Emergency department patient visit Eddi Lynn MD Work Phone: -Emergency Department Work Phone: Start: 12-19-2024 End: 12-19-2024 Dr. Lory Wolff DO -Emergency Departin nt Work Phone: Start: 12-19-2024 End: 12-19-2024 Emergency department patient visit Dr. Lory Wolff DO -Emergency Department Work Phone: Start: 11-26-2024 End: 11-26-[address] Vini Feliciano MD -[facility] Work Phone: Start: 11-26-2024 End: 11-26-2024 Dr. Vini Feliciano MD -[facility] Work Phone: Start: 11-26-2024 End: 11-26-2024 ambulatory Eddi Lynn MD Work Phone: -[facility] Start: 10-15-2024 End: 10-15-2024 ambulatory Eddi Lynn MD Work Phone: -Laboratory [place] Start: 10-15-2024 End: 10-15-2024 Patient encounter procedure Aydee Willams CORPORATE RISK ANALYST-C -Laboratory [place] Work Phone: Start: 10-15-2024 End: 10-15-2024 Aydee Willams CORPORATE RISK ANALYST-C -Laboratory [place] Work Phone: Start: 10-15-2024 End: 10-15-2024 ambulatory Aydee Willams CORPORATE RISK ANALYST Facility:[facility] Start: 07-15-2024 End: 07-15-[address] Eddi Lynn MD -Laboratory [place] Work Phone: Start: 07-15-2024 End: 07-15-2024 ambulatory [facility] Facility:[facility] Start: 06-18-2024 End: 06-18-[address] Dean Felipe MD Work Phone: [facility] Work Phone: Start: 06-18-2024 End: 06-18-[address] Vini Feliciano MD -Laboratory, [place] Work Phone: Start: 06-18-2024 End: 06-18-2024 ambulatory Vini Feliciano Facility:[facility] Start: 05-29-2024 End: 05-29-[address] Dean Felipe MD Work Phone: [facility] Work Phone: Start: 05-29-2024 End: 05-29-[address] Eddi Lynn MD -Radiology, [place] Work Phone: Start: 05-28-2024 End: 05-28-[address] Vini Feliciano MD -[facility] Work Phone: Start: 05-28-2024 End: 05-29-2024 ambulatory [facility] Facility:[facility] Start: 05-22-2024 End: 05-22-2024 Emergency department patient visit Dr. Chet Grover MD -Emergency Department Work Phone: Start: 06-12-2023 End: 06-12-[address] Dean Felipe Work Phone: [facility] Work Phone: Start: 06-12-2023 End: 06-12-[address] Dean Felipe Work Phone: [facility]-Laboratory Work Phone: Start: 05-30-2023 End: 05-30-[address] Dean Felipe Work Phone: [facility] Work Phone: Start: 05-01-2023 End: 05-01-2023 ambulatory [facility] Work Phone: Start: 05-01-2023 End: 05-01-2023 Patient encounter procedure [facility]-Laboratory, y Office 3rd Flr Start: 12-19-2022 End: 12-19-[address] Dean Felipe Work Phone: [facility] Work Phone: Start: 12-19-2022 End: 12-19-[address] Dean Felipe [facility] Start: 11-28-2022 End: 11-28-[address] Dean Felipe Work Phone: [facility] Work Phone: Start: 11-05-2022 Non-patient / Non-visit Dr. eDan Felipe Work Phone: [facility] Work Phone: Start: 11-04-2022 Non-patient / Non-visit Dr. Dean Felipe Work Phone: [facility] Work Phone: Start: 11-04-2022 End: 11-04-2022 Evaluation and management of inpatient Dr. Dean Felipe [facility]: [facility] Work Phone: Start: 10-25-2022 End: 10-25-2022 ambulatory [facility] Work Phone: Start: 10-25-2022 End: 10-25-2022 Patient encounter procedure [facility]-Laboratory, y Office 3rd Flr Start: 05-25-2022 End: 05-25-2022 ambulatory [facility] Work Phone: Start: 05-25-2022 End: 05-25-2022 [facility] Start: 10-12-2021 End: 10-12-[address] Dean Felipe [facility] Fl[facility] Start: 09-28-2021 End: 09-28-[address] Dean Felipe Work Phone: [facility] Start: 07-27-2021 End: 07-27-[address] Dean Felipe Work Phone: [facility] Start: 07-13-2021 End: 07-13-2021 [facility] [place] Start: 04-13-2021 End: 04-13-2021 Patient encounter procedure [facility] Office 3rd Flr Procedures Date Procedure Procedure [...] Work Phone: Start: 12-19-2024 Estimated creatinine clearance Eddi Lynn MD Work Phone: Start: 12-19-2024 Mean [...] Activity Detail Author Start: 01-12-2025 Patient discharge [facility] Start: 01-12-2025 -[facility] Work Phone: Start: 01-11-2025 -[facility] Work Phone: Start: 01-11-2025 Plain chest X-ray [facility] Start: 01-10-2025 -[facility] Work Phone: Start: 01-09-2025 -[facility] Work Phone: Start: 01-09-2025 -[facility] Start: 01-09-2025 Following clinical pathway protocol [facility] Start: 01-09-2025 Assessment of risk of venous thromboembolism [facility] Start: 01-09-2025 Insertion of catheter into peripheral vein [facility] Start: 01-09-2025 Measuring intake and output [facility] Start: 01-09-2025 Oxygen therapy [facility] Start: 01-09-2025 Providing care according to standard [facility] Start: 01-09-2025 Provision of activity privileges [facility] Start: 01-09-2025 Referral for physical therapy [facility] Start: 01-09-2025 Referral to occupational therapist [facility] Start: 01-09-2025 [facility] Start: 01-09-2025 Admission procedure [facility] Start: 01-09-2025 End: 01-12-2025 -[facility] Work Phone: Start: 01-09-2025 Patient referral to dietitian [facility] Start: 01-08-2025 CT angiography of chest with contrast [facility] Start: 01-08-2025 Radiologic exam chest 2 views [facility] Start: 01-08-2025 Ct abdomen & pelvis w/contrast material [facility] Start: 01-08-2025 [facility] Start: 01-02-2025 Patient discharge [facility] Start: 12-31-2024 [facility] Start: 12-30-2024 Application of intermittent pneumatic compression device [facility] Start: 12-30-2024 Assessment of risk of venous thromboembolism [facility] Start: 12-30-2024 Care regimes management [facility] Start: 12-30-2024 Elevation of head of bed [facility] Start: 12-30-2024 Insertion of catheter into peripheral vein [facility] Start: 12-30-2024 Measuring intake and output [facility] Start: 12-30-2024 Notification of physician [facility] Start: 12-30-2024 Oxygen therapy [facility] Start: 12-30-2024 Providing care according to standard [facility] Start: 12-30-2024 Referral for physical therapy [facility] Start: 12-30-2024 Referral to occupational therapist [facility] Start: 12-30-2024 Referral to service [facility] Start: 12-30-2024 Seizure precautions [facility] Start: 12-30-2024 Vital signs measurements [facility] Start: 12-30-2024 End: 12-30-2024 [facility] Start: 12-30-2024 Following clinical pathway protocol [facility] Start: 12-30-2024 Gas panel - Venous blood [facility] Start: 12-30-2024 Lactic acid measurement [facility] Start: 12-30-2024 Measurement of substance [facility] Start: 12-30-2024 Osmolality measurement, serum [facility] Start: 12-30-2024 Osmolality of Urine [facility] Start: 12-30-2024 Phenobarbital measurement [facility] Start: 12-30-2024 Thyroid stimulating hormone measurement [facility] Start: 12-30-2024 Verification routine [facility] Start: 12-30-2024 Admission procedure [facility] Start: 12-30-2024 Hospital admission, emergency, from emergency room, medical nature [facility] Start: 12-30-2024 End: 12-30-2024 [facility] Start: 12-30-2024 Bacteria identified in Blood by Culture Blood Culture [facility] Start: 12-30-2024 Bacteria identified in Urine by Culture Urine Culture [facility] Start: 12-30-2024 Consultation [facility] Start: 12-30-2024 Patient referral to dietitian [facility] Start: 12-22-2024 End: 12-22-2024 Emergency department patient visit Depart[facility] -Emergency Department Work Phone: Start: 12-19-2024 [facility] Start: 11-26-2024 Blood ammonia measurement [facility] Start: 11-26-2024 Complete blood count [facility] Start: 11-26-2024 Measurement of substance [facility] Start: 11-26-2024 Phenobarbital [address] [facility] Start: 11-26-2024 Vitamin D, 1,25-dihydroxy measurement [facility] Start: 05-22-2024 [facility] Start: 11-05-2022 Patient discharge [facility] Start: 11-04-2022 Following clinical pathway protocol [facility] Start: 11-04-2022 Airborne precautions [facility] Start: 11-04-2022 Assessment of risk of venous thromboembolism [facility] Start: 11-04-2022 Care regimes management [facility] Start: 11-04-2022 Catheterization of vein [facility] Start: 11-04-2022 Inhalation therapy procedure [place] Start: 11-04-2022 Insertion of catheter into peripheral vein [facility] Start: 11-04-2022 Notification of physician [facility] Start: 11-04-2022 Oxygen therapy [facility] Start: 11-04-2022 Providing care according to standard [facility] Start: 11-04-2022 Provision of activity privileges [facility] Start: 11-04-2022 Referral to occupational therapist [facility] Start: 11-04-2022 Referral to service [facility] Start: 11-04-2022 [facility] Start: 11-04-2022 Urinalysis complete panel - Urine [facility] Start: 11-04-2022 Admission procedure [facility] Start: 11-04-2022 [facility] Start: 11-04-2022 [facility] Start: 09-28-2021 Measurement of substance [facility] Work Phone: Alanine aminotransfe rase [Enzymatic activity/volume] in Serum or Plasma [facility] Albumin [Mass/volume ] in Serum or Plasma [facility] Alkaline phosphatase [Enzymatic activity/volume] in Serum or Plasma [facility] Anion gap in Serum or Plasma [facility] Basic metabolic 2008 panel with ionized calcium - Serum or Plasma [facility] Bilirubin, total measurement [facility] Blood ammonia measurement [facility] BUN/Creatinine ratio [facility] Calcium [Mass/volume ] in Serum or Plasma [facility] Carbon dioxide, tota l [Moles/volume] in Central venous blood [facility] Complete blood count [facility] Comprehensive metabo lic 1999 panel - Serum or Plasma [facility] metabo lic 1999 panel - Serum or Plasma [facility] Creatinine [Mass/vol ume] in Serum or Plasma [facility] Folate [Moles/volume ] in Serum or Plasma [facility] Glucose [Mass/volume ] in Serum or Plasma [facility] Magnesium measurement [facility] Measurement of renal function [facility] Measurement of substance [facility] Work Phone: Measurement of substance [facility] Patient Education [facility] Work Phone: Patient referral [place] Work Phone: Phenobarbital measurement [facility] Potassium measurement [facility] Serum chloride measurement [facility] Sodium measurement [facility] Total protein measurement [facility] Urea nitrogen [Mass/ volume] in Serum or Plasma [facility] Urine culture [facility] Payers Date Payer Category Payer Self-pay [id number] 2023 Medicaid [id number] 2023 Medicare [id number] Unknown [id number] 2.16.8 [id number] Unknown [id number] 2.16.8 [id number] Unknown [id number] 2.16.8 40.1.212648.3.579.2.462 Unknown [id number] 2.16.8 40.1.546130.3.579.2.462 Unknown [id number] 2.16.8 40.1.824744.3.579.2.462 Unknown [id number] 2.16.8 40.1.827879.3.579.2.462 Unknown [id number] 2.16.8 40.1.184518.3.579.2.462 Unknown [id number] 2.16.8 40.1.028009.3.579.2.462 Unknown [id number] 2.16.8 40.1.415686.3.579.2.462 Unknown [id number] 2.16.8 40.1.354838.3.579.2.462 Unknown [id number] 2.16.8 40.1.835918.3.579.2.462 Unknown [id number] 2.16.8 40.1.897530.3.579.2.462 Unknown [id number] 2.16.8 40.1.006193.3.579.2.462 Unknown [id number] 2.16.8 40.1.128465.3.579.2.462 Unknown [id number] 2.16.8 40.1.531086.3.579.2.462 Unknown [id number] 2.16.8 40.1.272063.3.579.2.462 Unknown [id number] 2.16.8 40.1.699045.3.579.2.462 Unknown [id number] 2.16.8 40.1.545305.3.579.2.462 Unknown [id number] 2.16.8 40.1.495882.3.579.2.462 Unknown [id number] 2.16.8 40.1.655317.3.579.2.462 Unknown [id number] 2.16.8 40.1.586877.3.579.2.462 Unknown [id number] 2.16.8 40.1.184837.3.579.2.462 Social History Date Type Detail Facility Start: 02-01-2021 End: 05-30-2023 Tobacco smoking status NHIS Unknown if ever smoked [facility] Start: 1955 Sex Assigned At Male [facility] Start: 05-22-2024 End: 01-09-2025 Tobacco smoking status NHIS Never smoked tobacco (finding) [facility] Start: 06-09-2024 End: 06-22-2024 Sex Male (finding) [facility] Sex [facility] Goals Date Patient Goal Desired Activity /State Functional Status Date Assessment Result Facility 01-12-2025 Functional status Ambulates [facility] Work Phone: 01-02-2025 Functional status Ambulates [facility] Work Phone: 11-04-2022 Functional status Chair [facility] Work Phone: Mental Status Date Assessment Result Facility 01-12-2025 Cognitive function Voice/Name [facility] Work Phone: 01-02-2025 Cognitive function Voice/Name [facility] Work Phone: 12-22-2024 Cognitive function Awake [facility] Work Phone: 12-19-2024 Cognitive function Awake [facility] Work Phone: 11-05-2022 Cognitive function Voice/Name [facility] Work Phone: 11-04-2022 Cognitive function Cooperative [facility] Work Phone: Clinical Notes 11-04-2022 to 01-12-2025 Note Date & Type Note Facility 01-12-2025 Discharge summary Note Date/Time January 12, 2025 2:44pm [facility] Medical Records Department [address] [place] [address] Discharge Summary 01/12/25 1234 MR#: [id number] Acct: [id number] Name: NAYLA BENNETT Rep #:[id number] : 1955 69 From: Kal wade DO PCP: Dr. Eddi Lynn MD Status:ADM IN Location: [place] [address] Providers Date of Admission: 01/09/25 Date of [...] is a 69-year-old male who presented to [facility] ED on 01/09/2025 with shortness of breath. Hospital course as noted below. Patient discharged back to senior care in stable condition on 01/12. 1. Acute [...] Case management followed. Patient lives in a senior care, is nonverbal at baseline. Complicated hospital course and care. Patient stable for discharge back to senior care on 01/12. Continue home Risperdal. Chronic medical [...] Profile (BMP) (Routine) Timeframe: 5 Days Facility: [facility] - Location: Laboratory Ordered By: Dr. Kal Laguna Referrals / Follow Up: Eddi Lynn MD [Primary Care Provider, Family Practice] Disposition Disposition (needs filled in before D/C Order can be placed): NonSkilled NH/Intermed Care Charges/Coding Visit Charges Inpatient E&M: 72907 Disch Hosp >30min 01/12/25 1344 <Electronically signed by Kal Laguna DO> Cosigner Signature (if applicable): CC: Dr. Kal Laguna DO; Dr. Eddi Lynn MD~ Signed [facility] Work Phone: 1(192) 178-275110-20-2025 Discharge summary Author Kal Laguna [facility] Note Date/Time January 12, 2025 2 :17pm [facility] Medical Records Department [address] [place] [address] Instructions for Home/Discharge Instructions 01/12/25 1233 MR#: [id number] Acct: [id number] Name: NAYLA BENNETT Rep #:[id number] : 1955 69 From: Kal wade DO [...] Profile (BMP) (Routine) Timeframe: 5 Days Facility: [facility] - Location: Laboratory Ordered By: Dr. Kal Laguna Referrals / Follow Up: Eddi Lynn MD [Primary Care Provider, Family Practice] Disposition Disposition (needs filled in before D/C Order can be placed): NonSkilled NH/Intermed Care 01/12/25 1317<Electronically signed by Kal Laguna DO>Kal Laguna DO CC: Dr. Eddi Lynn MD; Dr. Corey Pelaez DO; Dr. Katie Rosenbaum MD ~ Signed [facility] Work Phone: 1(585) 957-110910-20-2025 Hospital Discharge instructionsAdditional Instructions Start taking Lasix 40 mg daily. Please have a repeat BMP drawn in 5 to 7 days to monitor kidney function. Date of Discharge: 01/12/25[facility] Work Phone: 1(441) 688-603310-20-2025 [facility] Medical Records Department [address] [place] [address] Discharge Summary 01/12/25 1234 MR#: [id number] Acct: [id number] Name: NAYLA BENNETT Rep #: [id number] : 1955 69 From: Kal Laguna DO PCP: Dr. Eddi Lynn MD Status:ADM IN Location: [place] [id number] Providers Date of Admission: 01/09/25 Date of [...] is a 69-year-old male who presented to [facility] ED on 01/09/2025 with shortness of breath. Hospital course as noted below. Patient discharged back to senior care in stable condition on 01/12. 1. Acute [...] Case management followed. Patient lives in a senior care, is nonverbal at baseline. Complicated hospital course and care. Patient stable for discharge back to senior care on 01/12. Continue home Risperdal. Chronic medical [...] older than his st (more content not included)...[facility]10-19-2025 Progress note Author Corey Pelaez [facility] Note Date/Time January 11, 2025 6 :43pm [facility] Medical Records Department [address] [place] [address] Progress Note - Hospitalist 01/11/25 1741 MR#: [id number] Acct: [id number] Name: NAYLA BENNETT Rep #:[id number] : 1955 69 From: Corey Pelaez DO PCP: Dr. Eddi Lynn MD Status:ADM IN Location: [place] [address] Reason for Visit Chief Complaint: hypertension Subjective [...] consistent with small pleural effusions. Reading Location: [facility] Rhythm Strip Rhythm Strip: Sinus Rhythm Rate: [...] is on Flomax #9 hypoxia secondary to #[id number] is currently on room air Total clinical time spent by myself addressing the patient's medical issues, reviewing all of the data, and collaborating with patient's care team: 35 minutes Charges/Coding Visit Charges Inpatient E&M: 10332 Subs Hosp L2 01/11/25 1373 <Electronically signed by Corey Pelaez DO> Cosigner Signature (if applicable): CC: ~ Signed [facility] Work Phone: 1([phone] 541-215510-19-2025 Radiology Diagnostic study [facility]10-18-2025 Progress note Author Corey Pelaez [facility] Note Date/Time January 10, 2025 9 :04pm [facility] Medical Records Department [address] [place] [address] Progress Note - Hospitalist 01/10/251999 MR#: [id number] Acct: [id number] Name: NAYLA BENNETT Rep #:[id number] : 1955 69 From: Corey Pelaez DO PCP: Dr. Eddi Lynn MD Status:ADM IN Location: [place] [address] Reason for Visit Chief Complaint: hypertension Subjective [...] 35 minutes Charges/Coding Visit Charges Inpatient E&M: 99187 Subs Hosp L2 01/10/252003 <Electronically signed by Corey Pelaez DO> Cosigner Signature (if applicable): CC: ~ Signed [facility] Work Phone: [phone] 154-776910-18-2025 Progress note Author Corey [facility] Note Date/Time January 10, 2025 8 :58pm [facility] Medical Records Department [address] [place] [address] Progress Note - Hospitalist 01/09/251920 MR#: [id number] Acct: [id number] Name: NAYLA BENNETT Rep #:[id number] : 1955 69 From: Corey Pelaez DO PCP: Dr. Eddi Lynn MD Status:ADM IN Location: [place] [address] Reason for Visit Chief Complaint: hypertension Subjective [...] (Auto) 78.1 H, Lymph % (Auto) 10.5L, [place] % (Auto) 10.1 H, Eos % (Auto) [...] Clarity Clear, Urine pH 6.0, Ur Specific [place] Run 1.015, Urine Protein 30 H, Urine Glucose [...] (Auto) 68.2, Lymph % (Auto) 17.2 L, [place] % (Auto) 13.7 H, Eos % (Auto) [...] in the abdomen or pelvis Reading Location: [facility] Chest X-Ray 01/08/25 21:33 IMPRESSION: 1. Suboptimal exam. Possible mild CHF and possible left lung base airspace disease. Reading Location: [facility] Chest CTA 01/08/25 22:04 IMPRESSION: No demonstrated pulmonary embolism or arterial dissection. Moderate cardiomegaly. Mild bilateral pleural effusions. Passive atelectatic airspace disease of the lower lobes. Moderate interstitial pulmonary congestion. Mild alveolar pulmonary congestion. Mildly enlarged mediastinal lymph nodes with the largest measuring 1.3 cm, probably reactive. Reading Location: [place] [address] Echocardiogram 01/09/25 05:55 Interpretation Summary Normal LV [...] andbe reevaluated tomorrow, he lives in a senior care. #2 essential hypertension-patient will remain on his [...] 35 minutes Charges/Coding Visit Charges Inpatient E&M: 48101 Subs Hosp L2 01/10/251957 <Electronically signed by Corey Pelaez DO> Cosigner Signature (if applicable): CC: ~ Signed [facility] Work Phone: [phone] History and physical note Author Katie [facility] Note Date/Time January 09, 2025 7 :[address] [place] [address] System Medical Records Department [address] [place] [address] H&P Exam - Hospitalist 01/08/25 2346 MR#: [id number] Acct: [id number] Name: NAYLA BENNETT Rep #:[id number] : 1955 69 From: Katie Rosenbaum MD PCP: Dr. Eddi Lynn MD Status:ADM IN Location: [place] [address] HPI - General General Date of Admission: [...] being admitted to be managed for hyponatremia [facility] Medical History Developmental non-verbal disorder Vitamin [...] previous surgery Social History housing: other details: [facility] Smoking Status: Never smoker Electronic Cigarette Use: [...] (Auto) 78.1 H, Lymph % (Auto) 10.5L, [place] % (Auto) 10.1 H, Eos % (Auto) [...] Clarity Clear, Urine pH 6.0, Ur Specific [place] 1.015, Urine Protein 30 H, Urine Glucose [...] in the abdomen or pelvis Reading Location: [facility] Chest X-Ray 01/08/25 21:33 IMPRESSION: 1. Suboptimal exam. Possible mild CHF and possible left lung base airspace disease. Reading Location: [facility] Assessment & Plan Assessment/Plan (1) CHF (congestive [...] from facility. Charges/Coding Visit Charges Inpatient E&M: 27018 Init Hosp L3 Procedures Hospitalists Procedures: 47039 Advncd Care Plan 30 Min 01/09/25 0656 <Electronically signed by Katie Rosenbaum MD> Cosigner Signature (if applicable): CC: Dr. Eddi Lynn MD; Dr. Katie Rosenbaum MD~ Signed [facility] Work Phone: [phone] Discharge summary Author Aguilar Matthews [facility] Note Date/Time January 09, 2025 1 :10am [facility] Medical Records Department [address] [place] [address] Emergency Department Summary 01/08/25 MR#: [id number] Acct: [id number] Name: NAYLA BENNETT Rep #:[id number] : 1955 69 From: Aguilar Matthews MD [...] Prior similar symptoms: Yes Recent [facility] Medical History Developmental non-verbal disorder Vitamin [...] previous surgery Social History housing: other details: [facility] Smoking Status: Never smoker Electronic Cigarette Use: [...] BUN and creatinine of 17 and 0.8. [id number]. Liver enzymes unremarkable. Lipase normal at 22. [...] RDW Std Deviation 40.0 RDW Coeff of Clei 12.3 Plt Count 321 MPV 9.1 Immature Gran % (Auto) 0.500 Neut % (Auto) 78.1 H Lymph % (Auto) 10.5 L [place] % (Auto) 10.1 H Eos % (Auto) [...] Clarity Clear Urine pH 6.0 Ur Specific [place] Run 1.015 Urine Protein 30 H Urine Glucose [...] in the abdomen or pelvis Reading Location: [facility] Chest X-Ray 01/08/25 21:33 IMPRESSION: 1. Suboptimal exam. Possible mild CHF and possible left lung base airspace disease. Reading Location: [facility] Chest x-ray, 2 views AP and lateral, [...] rhythm rate 79 no acute signs of LA or ischemia. No dysrhythmia. Discharge Plan Dx/Rx/DC Orders Clinical Impression: Acute dyspnea, Hypoxia, CHF (congestive heart failure), History of diabetes mellitus, History of hypertension Disposition Disposition: Acute Care Hospital [facility] What to do if you have Problems For any increased pain, shortness of breath, bleeding, nausea or vomiting, chestpain, or any unexpected problems, contact your Primary Care Provider. Call [facility] ([phone]) or report to the closest Emergency Room. Call 911 if necessary. 01/09/250 <Electronically signed by Aguilar Matthews MD> Cosigner Signature (if applicable): CC: Dr. Eddi Lynn MD ~ Signed [facility] Work Phone: [phone] 413-846710-17-2025 Radiology Diagnostic study [facility]10-17-2025 Radiology Diagnostic study [facility]10-16-2025 Radiology Diagnostic study [facility] 01-08-2025 Radiology Diagnostic study [facility]10-16-2025 Radiology Diagnostic study [facility]10-16-2025 Radiology Diagnostic study [facility]10-16-2025 Discharge summary Author Aguilar Matthews [facility] Note Date/Time January 09, 2025 1 2:10am [facility] Medical Records Department [address] [place] [address] Emergency Department Summary 01/08/25 MR#: [id number] Acct: [id number] Name: NAYLA BENNETT Rep #:[id number] : 1955 69 From: Aguilar Matthews MD [...] Prior similar symptoms: Yes Recent Illness[facility] Medical History Developmental non-verbal disorder Vitamin [...] previous surgery Social History housing: other details: [facility] Smoking Status: Never smoker Electronic Cigarette Use: [...] BUN and creatinine of 17 and 0.8. [id number]. Liver enzymes unremarkable. Lipase normal at 22. [...] 78.1 H Lymph % (Auto) 10.5 L [place] % (Auto) 10.1 H Eos % (Auto) [...] Clarity Clear Urine pH 6.0 Ur Specific [place] Run 1.015 Urine Protein 30 H Urine Glucose [...] in the abdomen or pelvis Reading Location: [facility] Chest X-Ray 01/08/25 21:33 IMPRESSION: 1. Suboptimal exam. Possible mild CHF and possible left lung base airspace disease. Reading Location: [facility] Chest x-ray, 2 views AP and lateral, [...] rhythm rate 79 no acute signs of LA or ischemia. No dysrhythmia. Discharge Plan Dx/Rx/DC Orders Clinical Impression: Acute dyspnea, Hypoxia, CHF (congestive heart failure), History of diabetes mellitus, History of hypertension Disposition Disposition: Acute Care Hospital [facility] What to do if you have Problems For any increased pain, shortness of breath, bleeding, nausea or vomiting, chestpain, or any unexpected problems, contact your Primary Care Provider. Call [facility] ([phone]) or report to the closest Emergency Room. Call 911 if necessary. 01/09/25 0010 <Electronically signed by Aguilar Matthews MD> Cosigner Signature (if applicable): CC: Dr. Eddi Lynn MD ~ Signed [facility] Work Phone: [phone] 708-449710-10-2025 Discharge summary Author Alice Mckeon [facility] Note Date/Time January 02, 2025 1 :43pm [facility] Medical Records Department [address] [place] [address] Discharge Summary 01/02/25 1318 MR#: [id number] Acct: [id number] Name: NAYLA BENNETT Rep #:[id number] : 1955 69 From: Alice Mckeon DO PCP: Dr. Eddi Lynn MD Status:ADM [facility] Prov[facility] Date of Admission: 12/30/24 [...] PT/OT consultation - Patient resides in a senior care at baseline with intent to return home [...] full code unverified - No paperwork from senior care indicating what his CODE STATUS is and patient isnot able to have that conversation - Trying to touch base with the senior care to see what his CODE STATUS is so we can addend the order Medications at Discharge Home Medications loratadine 10 mg tablet 10 mg PO DAILY allergies 07/16/16 omega 3-kps-cva-fish oil 300 mg-1,000 mg capsule 1 ea [...] the day of presentation. According to his senior care he has been getting antibiotics for UTI [...] Primary Care Provider: Eddi Lynn Consulting Providers: Jroge Herrera Instructions Additional Instructions / Restrictions: 1. [...] MG tablet 10 mg PO DAILY omega 0-glf-uzh-fish oil 1 EACH capsule 1 ea PO [...] of HCF Charges/Coding Visit Charges Inpatient E&M: 63212 Disch Hosp >30min 01/02/25 1343 <Electronically signed by Alice Mckeon DO> Cosigner Signature (if applicable): CC: Dr. Eddi Lynn MD; Dr. Alice Mckeon DO~ Signed [facility] Work Phone: 1([phone]) 644-276710-10-2025 [facility] Medical Records Department [address] [place] [address] Discharge Summary 01/02/25 1318 MR#: [id number] Acct: [id number] Name: NAYLA BENNETT Rep #: [id number] : 1955 69 From: Alice Mckeon DO PCP: Dr. Eddi Lynn MD Status:ADM IN Location: [place] [id number] Providers Date of Admission: 12/30/24 Date of [...] PT/OT consultation - Patient resides in a senior care at baseline with intent to return home [...] full code unverified - No paperwork from senior care indicating what his CODE STATUS is and patient is not able to have that conversation - Trying to touch base with the senior care to see what his CODE STATUS is so we can addend the order Medications at Discharge Home Medications loratadine 10 mg tablet 10 mg PO DAILY allergies 07/16/16 omega 9-goe-dii-fish oil 300 mg-1,000 mg capsule 1 ea [...] mg PO TID #90 (more content not included)...[facility]10-09-2025 Progress note Author Alice [facility] Note Date/Time January 01, 2025 3: 37pm [facility] Medical Records Department [address] [place] [address] Progress Note - Hospitalist 01/01/25 1532 MR#: [id number] Acct: [id number] Name: NAYLA BENNETT Rep #:[id number] : 1955 69 From: Alice Mckeon DO PCP: Dr. Eddi Lynn MD Status:ADM IN Location: [place] [id number]- 1 Reason for Visit Chief Complaint: Multiple Falls. Subjective Subjective No issues overnight. Patient is verbal but unintelligible. Still trying to find out CODE STATUS from senior care as there was none sent and we [...] PT/OT consultation - Patient resides in a senior care at baseline with intent to return home [...] full code unverified - No paperwork from senior care indicating what his CODE STATUS is and patient isnot able to have that conversation - Trying to touch base with the senior care to see what his CODE STATUS is so we can addend the order Charges/Coding Visit Charges Inpatient E&M: 77650 Subs Hosp L2 01/01/25 1537 <Electronically signed by Alice Mckeon DO> Cosigner Signature (if applicable): CC: ~ Signed [facility] Work Phone: [phone] Progress note Author Alice Mckeon [facility] Note Date/Time December 31, 2024 2: 09pm [facility] Medical Records Department [address] [place] [address] Progress Note - Hospitalist 12/31/24718 MR#: [id number] Acct: [id number] Name: NAYLA BENNETT Rep #:[id number] : 1955 69 From: Alice Mckeon DO PCP: Dr. Eddi Lynn MD Status:ADM IN Location: [place] [address] Reason for Visit Chief Complaint: Multiple Falls. [...] % (Auto) 64.2, Lymph % (Auto) 23.5, [place] % (Auto) 10.5 H, Eos % (Auto) [...] Clarity Clear, Urine pH 6.0, Ur Specific [place] 1.010, Urine Protein 30 H, Urine Glucose [...] IMPRESSION: No acute intracranial abnormality. Reading Location: [address] Cervical Spine CT 12/30/24 15:56 IMPRESSION: No acute osseous abnormalities. Spondylosis. Reading Location: [address] Abdomen/Pelvis CT 12/30/24 18:03 IMPRESSION: Distended urinary bladder with mild hydroureter bilaterally which may reflect reflux. Otherwise no acute intra-abdominal process. Reading Location: [facility] Physical Exam Const alert, no apparent distress [...] PT/OT consultation - Patient resides in a senior care at baseline with intent to return home [...] full code unverified - No paperwork from senior care indicating what his CODE STATUS is and patient isnot able to have that conversation - Trying to touch base with the senior care to see what his CODE STATUS is so we can addend the order Charges/Coding Visit Charges Inpatient E&M: 25723 Subs Hosp L3 12/31/24 1409 <Electronically signed by Alice Mckeon DO> Cosigner Signature (if applicable): CC: ~ Signed [facility] Work Phone: [phone] History and physical note Author Jorge Novak [facility] Note Date/Time December 31, 2024 6: 26am [facility] Medical Records Department [address] [place] [address] H&P Exam - Hospitalist 12/30/242046 MR#: [id number] Acct: [id number] Name: NAYLA BENNETT Rep #:[id number] : 1955 69 From: Jorge Hernadnez DO PCP: Dr. Eddi Lynn MD Status:ADM IN Location: ICU ICU01-1 [facility] - General General Date of Admission: [...] UTI; on unknown antibiotic who presents to [facility] ER after staff at his senior care noted multiple falls. As indicated above Mr. Bennett is not a reliable historian as he is nonverbal at baseline. Therefore, information was gathered from chart, medical staff and computer. According to the records EMS was activated today after the staff at his senior care noted multiple falls. The ER physician informing [...] is expected to extend beyond 2 midnights. [facility] Medical History (Updated 12/30/24 @ 21:[address] Jorge Herrera, DO) Developmental non-verbal disorder Vitamin B12 deficiency Epilepsy, unspecified, not intractable, without status epilepticus Schizophrenia Seizure disorder Hyperlipidemia HTN (hypertension) Diabetes mellitus, type II Home Medications ?Medication ?Instructions ?Recorded ?Last Taken ?Type loratadine 10 mg tablet 10 mg PO DAILY allergies Unknown History omega 1-hrk-xce-fish oil 300 1 ea PO BID 07/16/16 [...] previous surgery Social History housing: other details: [facility] Smoking Status: Never smoker Electronic Cigarette Use: [...] % (Auto) 64.2, Lymph % (Auto) 23.5, [place] % (Auto) 10.5 H, Eos % (Auto) [...] Clarity Clear, Urine pH 6.0, Ur Specific [place] Run 1.010, Urine Protein 30 H, Urine Glucose [...] IMPRESSION: No acute intracranial abnormality. Reading Location: [address]ervical Spine [address] 12/30/24 15:56 IMPRESSION: No acute osseous abnormalities. Spondylosis. Reading Location: [address] Abdomen/Pelvis CT 12/30/24 18:03 IMPRESSION: Distended urinary bladder with mild hydroureter bilaterally which may reflect reflux. Otherwise no acute intra-abdominal process. Reading Location: [facility] Assessment & Plan Assessment/Plan (1) Acute hyponatremia: [...] 1.4 mmol/L. Charges/Coding Visit Charges Inpatient E&M: 44295 Init Hosp L3 12/31/24 0626 <Electronically signed by Jorge Herrera DO> Cosigner Signature (if applicable): CC: Dr. Eddi Lynn MD; Dr. Jorge Herrera DO~ Signed [facility] Work Phone: [phone] 704-190110-07-2025 Discharge summary Author Nestor Stauffer [facility] Note Date/Time December 30, 2024 8: 49pm [facility] Medical Records Department [address] [place] [address] Emergency Department Summary 12/30/24 MR#: [id number] Acct: [id number] Name: NAYLA BENNETT Rep #:[id number] : 1955 69 From: Nestor Stauffer DO [...] are unsure what antibiotics he is on. [facility] Medical History Developmental non-verbal disorder Vitamin B12 deficiency Epilepsy, unspecified, not intractable, without status epilepticus Schizophrenia Seizure disorder Hyperlipidemia HTN (hypertension) Diabetes mellitus, type II Home Medications ?Medication ?Instructions ?Recorded ?Last Taken ?Type loratadine 10 mg tablet 10 mg PO DAILY allergies Unknown History omega 3-tzb-xsp-fish oil 300 1 ea PO BID 07/16/16 [...] previous surgery Social History housing: other details: [facility] Smoking Status: Never smoker Electronic Cigarette Use: [...] % (Auto) 64.2 Lymph % (Auto) 23.5 [place] % (Auto) 10.5 H Eos % (Auto) [...] Clarity Clear Urine pH 6.0 Ur Specific [place] Run 1.010 Urine Protein 30 H Urine Glucose [...] IMPRESSION: No acute intracranial abnormality. Reading Location: [address] Cervical Spine [address] 12/30/24 15:56 IMPRESSION: No acute osseous abnormalities. Spondylosis. Reading Location: [address] Abdomen/Pelvis CT 12/30/24 18:03 IMPRESSION: Distended urinary bladder with mild hydroureter bilaterally which may reflect reflux. Otherwise no acute intra-abdominal process. Reading Location: [facility] Discharge Plan Dx/Rx/DC Orders Clinical Impression: Fall, Generalized weakness, Hyponatremia, Type 2 diabetes mellitus, History of seizure Disposition Disposition: Acute Care Hospital [facility] What to do if you have Problems For any increased pain, shortness of breath, bleeding, nausea or vomiting, chestpain, or any unexpected problems, contact your Primary Care Provider. Call [facility] ([phone]) or report to the closest Emergency Room. Call 911 if necessary. 12/30/242048 <Electronically signed by Nestor Stauffer DO> Cosigner Signature (if applicable): CC: Dr. Eddi Lynn MD ~ Signed [facility] Work Phone: 1(598) 116-839210-07-2025 Discharge summary [facility] Medical Records Department [address] [place] [address] Emergency Department Summary 12/30/24 MR#: [id number] Acct: [id number] Name: NAYLA BENNETT Rep #:[id number] : 1955 69 From: Nestor Stauffer DO [...] are unsure what antibiotics he is on. [facility] Medical History Developmental non-verbal disorder Vitamin B12 deficiency Epilepsy, unspecified, not intractable, without status epilepticus Schizophrenia Seizure disorder Hyperlipidemia HTN (hypertension) Diabetes mellitus, type II Home Medications ?Medication ?Instructions ?Recorded ?Last Taken ?Type loratadine 10 mg tablet 10 mg PO DAILY allergies Unknown History omega 3-zka-cco-fish oil 300 1 ea PO BID 07/16/16 [...] previous surgery Social History housing: other details: [facility] Smoking Status: Never smoker Electronic Cigarette Use: [...] % (Auto) 64.2 Lymph % (Auto) 23.5 [place] % (Auto) 10.5 H Eos % (Auto) [...] Clarity Clear Urine pH 6.0 Ur Specific [place] Run 1.010 Urine Protein 30 H Urine Glucose [...] IMPRESSION: No acute intracranial abnormality. Reading Location: [address] Cervical Spine [address] 12/30/24 15:56 IMPRESSION: No acute osseous abnormalities. Spondylosis. Reading Location: [address] Abdomen/Pelvis CT 12/30/24 18:03 IMPRESSION: Distended urinary bladder with mild hydroureter bilaterally which may reflect reflux. Otherwise no acute intra-abdominal process. Reading Location: [facility] Discharge Plan Dx/Rx/DC Orders Clinical Impression: Fall, Generalized weakness, Hyponatremia, Type 2 diabetes mellitus, History of seizure Disposition Disposition: Acute Care Hospital [facility] What to do if you have Problems For any increased pain, shortness of breath, bleeding, nausea or vomiting, chestpain, or any unexpected problems, contact your Primary Care Provider. Call [facility] ([phone]) or report tothe closest Emergency Room. Call 911 if necessary. 12/30/242048 Cosigner Signature (if applicable): CC: Dr. Eddi Lynn MD ~ Signed [facility]10-07-2025 Radiology Diagnostic study note [facility] Imaging Services [address] [place] [address] Abdomen/Pelvis W IV Cont ONLY MR#: [id number] Acct: [id number] Name: NAYLA BENNETT Rep #: [id number] : 1955 M 69 From: Lizzie Ann MD PCP: Dr. Eddi Lynn MD Status: REG ER Study:Abdomen/Pelvis W IV Cont ONLY Date of E xam: 12/30/24 Exam# [id number] Ordering Dr: Lucinda Stauffer DO PROCEDURE: ABDOMEN/PELVIS [...] Otherwise no acute intra-abdominal process. Reading Location: [facility] CC: Dr. Eddi Lynn MD; Dr. Nestor Stauffer DO ~ Tire Spotter: Signed [facility]10-07-2025 Radiology Diagnostic study note [facility] Imaging Services [address] [place], [place] [address] Spine Cervical without Contras MR#: [id number] Acct: [id number] Name: NAYLA BENNETT Rep #: [id number] : 1955 M 69 From: Dariel Rudolph MD PCP: Dr. Eddi Lynn MD Status: REG ER Study:Spine Cervical without Contras Date of Exam: 12/30/24 Exam# [id number] Ordering Dr: Lucinda Stauffer DO PROCEDURE: SPINE [...] No acute osseous abnormalities. Spondylosis. Reading Location: [address] CC: Dr. Eddi Lynn MD; Dr. Nestor Stauffer DO ~ [employer]: Signed [facility]10-07-2025 Radiology Diagnostic study note [facility] [facility] [address] [place], [place] [address] Brain/Head without Contrast MR#: [id number] Acct: [id number] Name: NAYLA BENNETT Rep #: [id number] : 1955 M 69 From: Dariel Rudolph MD PCP: Dr. Eddi Lynn MD Status: REG ER Study:Brain/Head without Contrast Date of Exa m: 12/30/24 Exam# [id number] Ordering Dr: Lucinda Stauffer DO PROCEDURE: BRAIN/HEAD [...] IMPRESSION: No acute intracranial abnormality. Reading Location: [address] CC: Dr. Eddi Lynn MD; Dr. Nestor Stauffer DO ~ Tire Spotter: Signed [facility]10-07-2025 Discharge summary Author Nestor Stauffer [facility] Note Date/Time December 30, 2024 8: 49pm [facility] Medical Records Department [address] [place] [address] Emergency Department Summary 12/30/24 MR#: [id number] Acct: [id number] Name: NAYLA BENNETT Rep #:[id number] : 1955 69 From: Nestor Stauffer DO [...] are unsure what antibiotics he is on. [facility] Medical History Developmental non-verbal disorder Vitamin B12 deficiency Epilepsy, unspecified, not intractable, without status epilepticus Schizophrenia Seizure disorder Hyperlipidemia HTN (hypertension) Diabetes mellitus, type II Home Medications ?Medication ?Instructions ?Recorded ?Last Taken ?Type loratadine 10 mg tablet 10 mg PO DAILY allergies Unknown History omega 1-tds-tiv-fish oil 300 1 ea PO BID 07/16/16 [...] previous surgery Social History housing: other details: [facility] Smoking Status: Never smoker Electronic Cigarette Use: [...] % (Auto) 64.2 Lymph % (Auto) 23.5 [place] % (Auto) 10.5 H Eos % (Auto) [...] Clarity Clear Urine pH 6.0 Ur Specific Cub Run 1.010 Urine Protein 30 H Urine Glucose [...] IMPRESSION: No acute intracranial abnormality. Reading Location: [address] Cervical Spine CT 12/30/24 15:56 IMPRESSION: No acute osseous abnormalities. Spondylosis. Reading Location: [address] Abdomen/Pelvis CT 12/30/24 18:03 IMPRESSION: Distended urinary bladder with mild hydroureter bilaterally which may reflect reflux. Otherwise no acute intra-abdominal process. Reading Location: [facility] Discharge Plan Dx/Rx/DC Orders Clinical Impression: Fall, Generalized weakness, Hyponatremia, Type 2 diabetes mellitus, History of seizure Disposition Disposition: Acute Care Hospital [facility] What to do if you have Problems For any increased pain, shortness of breath, bleeding, nausea or vomiting, chestpain, or any unexpected problems, contact your Primary Care Provider. Call [facility] ([phone]) or report to the closest Emergency Room. Call 911 if necessary. 12/30/242048 <Electronically signed by Nestor Stauffer DO> Cosigner Signature (if applicable): CC: Dr. Eddi Lynn MD ~ Signed [facility] Work Phone: 1(408) 398-653009-29-2025 Discharge summary [facility] Medical Records Department [address] [place] [address] Emergency Department Summary 12/22/24 MR#: [id number] Acct: [id number] Name: NAYLA BENNETT Rep #:[id number] : 1955 69 From: Chet Grover MD PCP: Dr. Eddi Lynn MD Status:REG ER Location: ED HPI History of Present Illness Chief Complaint: Hypertension Detail of Chief Complaint: Patient presents with elevated blood pressure. He repeats what is asked of Informant: other (Attendee from senior care) Onset/Context/Timing Onset: Today (Apparently had elevated blood [...] Prior similar symptoms: No Recent Illness/Hospitalization: Yes [facility] Medical History Developmental non-verbal disorder Vitamin B12 deficiency Epilepsy, unspecified, not intractable, without status epilepticus Schizophrenia Seizure disorder Hyperlipidemia HTN (hypertension) Diabetes mellitus, type II Home Medications ?Medication ?Instructions ?Recorded ?Last Taken ?Type loratadine 10 mg tablet 10 mg PO DAILY allergies Unknown History omega 4-nqp-ung-fish oil 300 1 ea PO BID 07/16/16 [...] previous surgery Social History housing: other details: [facility] Smoking Status: Never smoker Electronic Cigarette Use: [...] MG tablet 10 mg PO DAILY omega 9-uph-ftb-fish oil 1 EACH capsule 1 ea PO [...] in 1 to 2 weeks. Print Language: Emirati Disposition Disposition: Home, Self Care What to do if you have Problems For any increased pain, shortness of breath, bleeding, nausea or vomiting, chestpain, or any unexpected problems, contact your Primary Care Provider. Call [facility] ([phone]) or report tothe closest Emergency Room. Call 911 if necessary. 12/22/241956 Cosigner Signature (if applicable): CC: Dr. Eddi Lynn MD ~ Signed [facility]09-29-2025 Discharge summary Author Chet Grover [facility] Note Date/Time December 22, 2024 7:57pm [facility] Medical Records Department [address] [place] [address] Emergency Department Summary 12/22/24 MR#: [id number] Acct: [id number] Name: NAYLA BENNETT Rep #:[id number] : 1955 69 From: Chet Grover MD PCP: Dr. Eddi Lynn MD Status:REG ER Location: ED HPI History of Present Illness Chief Complaint: Hypertension Detail of Chief Complaint: Patient presents with elevated blood pressure. He repeats what is asked of Informant: other (Attendee from senior care) Onset/Context/Timing Onset: Today (Apparently had elevated blood [...] Prior similar symptoms: No Recent Illness/Hospitalization: Yes [facility] Medical History Developmental non-verbal disorder Vitamin B12 deficiency Epilepsy, unspecified, not intractable, without status epilepticus Schizophrenia Seizure disorder Hyperlipidemia HTN (hypertension) Diabetes mellitus, type II Home Medications ?Medication ?Instructions ?Recorded ?Last Taken ?Type loratadine 10 mg tablet 10 mg PO DAILY allergies Unknown History omega 1-wbc-lwl-fish oil 300 1 ea PO BID 07/16/16 [...] previous surgery Social History housing: other details: [facility] Smoking Status: Never smoker Electronic Cigarette Use: [...] MG tablet 10 mg PO DAILY omega 8-abw-fub-fish oil 1 EACH capsule 1 ea PO [...] in 1 to 2 weeks. Print Language: Emirati Disposition Disposition: Home, Self Care What to do if you have Problems For any increased pain, shortness of breath, bleeding, nausea or vomiting, chestpain, or any unexpected problems, contact your Primary Care Provider. Call [facility] ([phone]) or report to the closest Emergency Room. Call 911 if necessary. 12/22/241956 <Electronically signed by Chet Grover MD> Cosigner Signature (if applicable): CC: Dr. Eddi Lynn MD ~ Signed [facility] Work Phone: 1(509) 731-380609-26-2025 Discharge summary [facility] Medical Records Department [address] [place] [address] Emergency Department Summary 12/19/24 MR#: [id number] Acct: [id number] Name: NAYLA BENNETT Rep #:[id number] : 1955 69 From: Lory Santana PCP: [...] elevated blood pressure last week (blood pressures 210/579000/110.) workshop recommend he see his primary care [...] recommendation primary care doctor for further evaluation. [facility] Medical History (Updated 12/19/24 @ 16:[address] Lory Wolff DO) Developmental non-verbal disorder Vitamin B12 deficiency Epilepsy, unspecified, not intractable, without status epilepticus Schizophrenia Seizure disorder Hyperlipidemia HTN (hypertension) Diabetes mellitus, type II Home Medications ?Medication ?Instructions ?Recorded ?Last Taken ?Type loratadine 10 mg tablet 10 mg PO DAILY PRN allergies 07/16/16 Unknown History omega 0-gem-xvk-fish oil 300 1 ea PO BID 07/16/16 [...] previous surgery Social History housing: other details: [facility] Smoking Status: Never smoker Electronic Cigarette Use: [...] on Norvasc 5 mg's last week and senior care has been checking his blood pressure regularly however it was elevated today. He did have his Norvasc5 mg. They called the PCP office who recommend he come to the ER. Differential includes poorly controlled hypertension, accelerated hypertension, PARKER and intracranial hemorrhage. Patient is asymptomatic at this time and per group sales representative he is at his baseline and acting [...] and follow-up with family medicine as previously'splanned. [facility] is agreeable to plan of care. Patient [...] Clarity Clear Urine pH 6.5 Ur Specific Cub Run 1.010 Urine Protein Negative Urine Glucose (UA) [...] IMPRESSION: No acute intracranial abnormality. Reading Location: [facility] Discharge Plan Triage Chief Complaint: Hypertension ED [...] tablet 10 mg PO DAILY PRN omega 9-kuy-vlt-fish oil 1 EACH capsule 1 ea PO [...] primary care doctor next week Print Language: Emirati Disposition Disposition: Home, Self Care Discharge Date/Time: 12/19/24 16:42 What to do if you have Problems For any increased pain, shortness of breath, bleeding, nausea or vomiting, chestpain, or any unexpected problems, contact your Primary Care Provider. Call [facility] ([phone]) or report tothe closest Emergency Room. Call 911 if necessary. 12/20/24 1507 Cosigner Signature (if applicable): CC: Dr. Eddi Lynn MD ~ Signed [facility]09-26-2025 Radiology Diagnostic study note [facility] [address] [place] [address] Brain/Head without Contrast MR#: [id number] Acct: [id number] Name: NAYLA BENNETT Rep #: [id number] : 1955 M 69 From: Edwin Bettencourt MD PCP: Dr. Eddi Lynn MD Status: REG ER Study:Brain/Head without Contrast Date of Exa m: 12/19/24 Exam# [id number] Ordering Dr: Joe Wolff DO PROCEDURE: BRAIN/HEAD [...] IMPRESSION: No acute intracranial abnormality. Reading Location: [facility] CC: Dr. Eddi Lynn MD; Dr. Lory Wolff DO ~ Tire Spotter: Signed [facility]09-26-2025 Discharge summary Author Lory Wolff [facility] Note Date/Time December 19, 2024 4:42pm [facility] Medical Records Department [address] [place] [address] Emergency Department Summary 12/19/24 MR#: [id number] Acct: [id number] Name: NAYLA BENNETT Rep #:[id number] : 1955 69 From: Lory Santana PCP: [...] recommendation primary care doctor for further evaluation. [facility] Medical History (Updated 12/19/24 @ 16:[address] Lory Wolff, DO) Developmental non-verbal disorder Vitamin B12 deficiency Epilepsy, unspecified, not intractable, without status epilepticus Schizophrenia Seizure disorder Hyperlipidemia HTN (hypertension) Diabetes mellitus, type II Home Medications ?Medication ?Instructions ?Recorded ?Last Taken ?Type loratadine 10 mg tablet 10 mg PO DAILY PRN allergies 07/16/16 Unknown History omega 1-npi-uhc-fish oil 300 1 ea PO BID 07/16/16 [...] previous surgery Social History housing: other details: [facility] Smoking Status: Never smoker Electronic Cigarette Use: [...] on Norvasc 5 mg's last week and senior care has been checking his blood pressure regularly however it was elevated today. He did have his Norvasc 5 mg. They called the PCP office who recommend he come to the ER. Differential includes poorly controlled hypertension, accelerated hypertension, PARKER and intracranial hemorrhage. Patient is asymptomatic at this time and per group sales representative he is at his baseline and acting [...] follow-up with family medicine as previously's planned. [facility] is agreeable to plan of care. Patient [...] Clarity Clear Urine pH 6.5 Ur Specific Cub Run 1.010 Urine Protein Negative Urine Glucose (UA) [...] IMPRESSION: No acute intracranial abnormality. Reading Location: [facility] Discharge Plan Triage Chief Complaint: Hypertension ED [...] tablet 10 mg PO DAILY PRN omega 2-dha-gwz-fish oil 1 EACH capsule 1 ea PO [...] primary care doctor next week Print Language: Emirati Disposition Disposition: Home, Self Care Discharge Date/Time: 12/19/24 16:42 What to do if you have Problems For any increased pain, shortness of breath, bleeding, nausea or vomiting, chestpain, or any unexpected problems, contact your Primary Care Provider. Call [facility] ([phone]) or report to the closest Emergency Room. Call 911 if necessary. 12/20/24 1507 <Electronically signed by Lory Wolff DO> Cosigner Signature (if applicable): CC: Dr. Eddi Lynn MD ~ Signed [facility] Work Phone: [phone]) 574-658809-03-2025 Evaluation note* Diagnosis Onset Date Resolution Status Admit Date Epilepsy, unspecified, not intractable, without status epilepticus chronic November 26 025 10:31am HTN (hypertension) chronic Sept2024 10:31am Vitamin B12 deficiency resolved Se ptember 2024 10:31am Vitamin D insufficiency resolved S eptember 2024 10:31am [facility] Work Phone: [phone]) [phone] Evaluation note* Diagnosis Onset Date Resolution Status [...] Uncontrolled hypertension acute December 30, 2024 9:21pm [facility] Work Phone: [phone]) 619-330309-03-2025 Evaluation note* Diagnosis Onset Date Resolution Status [...] of hypertension inactive O ctober 2024 12:01am [facility] Work Phone: 1(139) 434-844303-06-2025 Radiology Diagnostic study note [facility] [address] [place] [address] HIP, UNI W/ Pelvis 2-3 Views MR#: [id number] Acct: [id number] Name: NAYLA BENNETT Rep #: [id number] : 1955 M 69 From: Iván Thompson MD PCP: Dr. Eddi Lynn MD Status: REG CL I Study:HIP, UNI W/ Pelvis 2-3 Views Date of Ex am: 05/29/24 Exam# [id number] Ordering Dr: Beckie Lynn MD PROCEDURE: HIP, [...] changes. Reading Location: [facility] CC: Dr. Eddi Lnyn MD ~ Tire Spotter: Signed [facility]03-05-2025 Evaluation note* Diagnosis Onset Date Resolution Status Admit Date Epilepsy, unspecified, not intractable, without status epilepticus chronic May 28, 2024 9:16am Vitamin B12 deficiency resolved [facility] 2024 9:16am Vitamin D insufficiency resolved M arch 2024 9:16am [facility] Work Phone: [phone] Discharge summary Author Jefferson Lazar [facility] November 04, 2022 9:25am Note Date/Time November 04, 2022 7: 21am [facility] Medical Records Department [address] [place] [address] Emergency Department Summary 11/04/22 MR#: [id number] Acct: [id number] Name: NAYLA BENNETT Rep #:[id number] : 1955 67 From: Jefferson Lazar MD PCP: Dr. Dean Felipe MD Status:REG E R Location: ED HPI HPI - Fall History of Present Illness Chief Complaint: Fall Informant: EMS Narrative Narrative: [facility] resident who recently tested positive for COVID [...] he was able to walk to the [facility] forth. He is autistic and nonverbal at baseline according to their report. Patient is nonverbal and does not indicate anything in particular, but is cooperative with us. No history available from the patient. No report was given from the senior care staff, our nurses called to discuss details. [...] he was just started on Paxlovid yesterday. [facility] Medical History Developmental non-verbal disorder Diabetes mellitus, type II Epilepsy, unspecified, not intractable, without status epilepticus HTN (hypertension) Hyperlipidemia Schizophrenia Seizure disorder Vitamin B12 deficiency Home Medications loratadine 10 mg tablet 10 mg PO DAILY 07/16/16 [History Last Taken Unknown] omega 9-ajd-hvl-fish oil 300 mg-1,000 mg capsule 1 ea [...] Dr. Alice Mckeon, DO) housing: other details: [facility] Smoking Status: Never smoker Electronic Cigarette Use: [...] motor deficits and no sensory deficits noted [place] Coma Scale: document GCS findings (within limits of exam given that pt is nonverbal; at baseline per EMS, per senior care staff) Spontaneous Obeys Commands Oriented 15 Sensorium [...] try to be discharged back to the senior care if at all possible even if on oxygen which she is needing. We discussed with the senior care, unfortunately they are not able to accommodate [...] Discussion w/independent historian: EMS personnel and Other (senior care staff) Additional record(s) reviewed:: Prior labs Lab [...] 80.2 H Lymph % (Auto) 5.7 L [place] % (Auto) 13.2 H Eos % (Auto) [...] Hypoxemia, Fall Disposition Disposition: Acute Care Hospital [facility] What to do if you have Problems For any increased pain, shortness of breath, bleeding, nausea or vomiting, chestpain, or any unexpected problems, contact your Primary Care Provider. Call [facility] ([phone]) or report to the closest Emergency Room. Call 911 if necessary. 11/04/22 0925 <Electronically signed by Jefferson Lazar MD> Cosigner Signature (if applicable): CC: Dr. Dean Felipe MD ~ Signed [facility] Work Phone: 1([phone]) [phone] History and physical note Author Alice Mckeon [facility] November 04, 2022 9:04am Note Date/Time November 04, 2022 8: 55am [facility] Medical Records Department [address] [place] [address] H&P Exam - Hospitalist 11/04/22 0841 MR#: [id number] Acct: [id number] Name: NAYLA BENNETT Rep #:[id number] : 1955 67 From: Alice Mckoen DO PCP: Dr. Dean Felipe MD Status:REG E R Location: ED HPI - General General Date of Admission: 11/04/22 Date of Service: 11/04/22 Chief Complaint: Fall HPI Narrative NAYLA BENNETT, is a 67 M who presented to the emergency department at [facility] on 11/04/2022 after sustaining a fall at his senior care. All history is taken from what EMS reported to the ED physician in the ED staff discussing with senior care staff. Patient is nonverbal at baseline. More reported that he did not appear injured to them but was unsteady on his feet while transporting him to the [facility] for transportation to the emergency [...] pending however outpatient study was positive per senior care. Initial intent was to discharge back to the senior care with oxygen per discussion with the guardian and the emergency department physician however the senior care is unable to take oxygen and therefore admission was required. [facility] Medical History Developmental non-verbal disorder Diabetes mellitus, type II Epilepsy, unspecified, not intractable, without status epilepticus HTN (hypertension) Hyperlipidemia Schizophrenia Seizure disorder Vitamin B12 deficiency Home Medications loratadine 10 mg tablet 10 mg PO DAILY 07/16/16 [History Last Taken Unknown] omega 7-wps-lku-fish oil 300 mg-1,000 mg capsule 1 ea [...] Dr. Alice Mckeon, DO) housing: other details: [facility] Smoking Status: Never smoker Electronic Cigarette Use: [...] 80.2 H, Lymph % (Auto) 5.7 L, [place] % (Auto) 13.2 H, Eos % (Auto) [...] GFR (MDRD) Non-Af 83, BUN/Creatinine Ratio 15.7, [id number] H, Calcium 8.5 Radiology Impression Chest X-Ray [...] should be able to discharge back to senior care--> they are unable to accommodate oxygen Falls [...] with guardian Charges/Coding Visit Charges Inpatient E&M: 65030 Init Hosp L2 11/04/22 0904 <Electronically signed by Alice Mckeon DO> Cosigner Signature (if applicable): CC: Dr. Alice Mckeon DO; Dr. Dean Felipe MD~ Signed [facility] Work Phone: 1([phone]) 964-238108-12-2023 Discharge summary Author Jefferson Lazra [facility] November 04, 2022 9:25am Note Date/Time November 04, 2022 7: 21am [facility] Medical Records Department [address] [place] [address] Emergency Department Summary 11/04/22 MR#: [id number] Acct: [id number] Name: NAYLA BENNETT Rep #:[id number] : 1955 67 From: Jefferson Lazar MD PCP: Dr. Dean Felipe MD Status:REG E R Location: ED HPI HPI - Fall History of Present Illness Chief Complaint: Fall Informant: EMS Narrative Narrative: [facility] resident who recently tested positive for COVID [...] [facility] He is autistic and nonverbal at baseline according to their report. Patient is nonverbal and does not indicate anything in particular, but is cooperative with us. No history available from the patient. No report was given from the senior care staff, our nurses called to discuss details. [...] he was just started on Paxlovid yesterday. [facility] Medical History Developmental non-verbal disorder Diabetes mellitus, type II Epilepsy, unspecified, not intractable, without status epilepticus HTN (hypertension) Hyperlipidemia Schizophrenia Seizure disorder Vitamin B12 deficiency Home Medications loratadine 10 mg tablet 10 mg PO DAILY 07/16/16 [History Last Taken Unknown] omega 8-gnl-xsw-fish oil 300 mg-1,000 mg capsule 1 ea [...] Dr. Alice Mckeon, DO) housing: other details: [facility] Smoking Status: Never smoker Electronic Cigarette Use: [...] is nonverbal; at baseline per EMS, per senior care staff) Spontaneous Obeys Commands Oriented 15 Sensorium [...] try to be discharged back to the senior care if at all possible even if on oxygen which she is needing. We discussed with the senior care, unfortunately they are not able to accommodate [...] Discussion w/independent historian: EMS personnel and Other (senior care staff) Additional record(s) reviewed:: Prior labs Lab [...] 80.2 H Lymph % (Auto) 5.7 L [place] % (Auto) 13.2 H Eos % (Auto) [...] COVID-19, Hypoxemia, Fall Disposition Disposition: Acute Care [facility] What to do if you have Problems For any increased pain, shortness of breath, bleeding, nausea or vomiting, chestpain, or any unexpected problems, contact your Primary Care Provider. Call [facility] ([phone]) or report to the closest Emergency Room. Call 911 if necessary. 11/04/22924 <Electronically signed by Jefferson Lazar MD> Cosigner Signature (if applicable): CC: Dr. Dean Felipe MD ~ Signed [facility] Work Phone: Chiud complaint+Reason for visit Narrative* Chief Complaint HYPOXIA,/COVID PNA FALL Reason for Visit COVID-19 Fall Hypoxemia [facility] Work Phone: Chiiv complaint+Reason for visit Narrative* Chief Complaint HYPOXIA,/COVID PNA FALL HYPOXIA,/COVID PNA Reason for Visit COVID-19 Fall Hypoxemia [facility] Work Phone: Consult note Author Rafa Dior [facility] Note Date/Time January 02, 2025 3 :18pm [facility] Medical Records Department [address] [place] [address] Counseling Note - Pharmacy 01/02/25 1400 MR#: [id number] Acct: [id number] Name: NAYLA BENNETT Rep #:[id number] : 1955 69 From: Rafa rosen PCP: Dr. Eddi Lynn MD Status:ADM IN Location: [place] [address] Pharmacy [place] Med Reconciliation Pharmacy Service has performed discharge medication reconciliation for this patient. The patient's discharge medication list was reviewed for discrepancies and discrepancies were resolved. Medications at Discharge Home Medications loratadine 10 mg tablet 10 mg PO DAILY allergies 07/16/16 omega 0-emg-roo-fish oil 300 mg-1,000 mg capsule 1 ea [...] Signature (if applicable): Date CC: ~ Signed [facility] Work Phone: Consult note Author Malick Lind [facility] Note Date/Time January 12, 2025 2 :28pm [facility] Medical Records Department [address] [place] [address] Counseling Note - Pharmacy 01/12/25 1414 MR#: [id number] Acct: [id number] Name: NAYLA BENNETT Rep #:[id number] : 1955 69 From: Malick Lind PCP: Dr. Eddi Lynn MD Status:ADM IN Y Location: [place] [address] Pharmacy [place] Med Reconciliation Pharmacy Service has performed discharge [...] Signature (if applicable): Date CC: ~ Signed [facility] Work Phone: Consult note Author Malick Lind [facility] Note Date/Time January 12, 2025 3 :28pm [facility] Medical Records Department [address] [place] [address] Counseling Note - Pharmacy 01/12/25 1414 MR#: [id number] Acct: [id number] Name: NAYLA BENNETT Rep #:[id number] : 1955 69 From: Malick Lind PCP: Dr. Eddi Lynn MD Status:ADM IN Location: [place] [address] Pharmacy [place] Med Reconciliation Pharmacy Service has performed discharge [...] Signature (if applicable): Date CC: ~ Signed [facility] Work Phone: Discharge summary Author Alice Mckeon [facility] November 05, 2022 12:02pm Note Date/Time November 05, 2022 11 :59am [facility] Medical Records Department [address] [place] [address] Discharge Summary 11/05/22 1152 MR#: [id number] Acct: [id number] Name: NAYLA BENNETT Rep #:[id number] : 1955 67 From: Alice Mckeon DO PCP: Dr. Dean Felipe MD Status:ADM I N [facility] Prov[facility] Date of Admission: 11/04/22 Date of [...] mg PO DAILY PRN allergies 07/16/16 omega 7-agi-gwi-fish oil 300 mg-1,000 mg capsule 1 ea [...] who presented to the emergency department at [facility] on 11/04/2022 after sustaining a fall at his senior care. All history was taken from the EMS report and the ED physician after theydiscussed the case with his senior care staff as he is nonverbal at baseline. [...] was to discharge him back to his senior care with oxygen as he wasrequiring 2 L due to an oxygen saturation of 88% on room air however his senior care was not able to take him with [...] we will discharge him back to his senior care. I will continue his Decadron and would [...] stable condition on 11/05/2021 back to his senior care with prescription for Decadron to complete 8 [...] lying in bed, appears comfortable and nontoxic, psychiatric nursing assistant at bedside getting cleaned up [...] Clarity Clear, Urine pH 6.5, Ur Specific [place] 1.010, Urine Protein 30 H, Urine Glucose [...] % (Auto) 55.5, Lymph % (Auto) 25.1, [place] % (Auto) 18.0 H, Eos % (Auto) [...] tablet 10 mg PO DAILY PRN omega 1-djm-hkk-fish oil 1 EACH capsule 1 ea PO BID Referrals / Follow Up: Dean Felipe Chi, MD [Primary Care Provider] - Within 2 Weeks Disposition Disposition (needs filled in before D/C Order can be placed): Home, Self Care 11/05/22 1202 <Electronically signed by Alice Mckeon DO> Cosigner Signature (if applicable): CC: Dr. Alice Mckeon DO; Dr. Dean Felipe MD~ Signed [facility] Work Phone: Discharge summary Author Kal Laguna [facility] Note Date/Time January 12, 2025 1 :17pm [facility] Medical Records Department [address] [place] [address] Instructions for Home/Discharge Instructions 01/12/25 1233 MR#: [id number] Acct: [id number] Name: NAYLA BENNETT Rep #:[id number] : 1955 69 From: Kal wade DO [...] Profile (BMP) (Routine) Timeframe: 5 Days Facility: [facility] - Location: Laboratory Ordered By: Dr. Kal Laguna Referrals / Follow Up: Eddi Lynn MD [Primary Care Provider, Family Practice] Disposition Disposition (needs filled in before D/C Order can be placed): NonSkilled NH/Intermed Care 01/12/25 1317<Electronically signed by Kal Laguna DO>Kal Laguna DO CC: Dr. Eddi Lynn MD; Dr. Corey Pelaez DO; Dr. Katie Rosenbaum MD ~ Signed [facility] Work Phone: Discharge summary Author Kal Laguna [facility] Note Date/Time January 12, 2025 1 :44pm [facility] Medical Records Department [address] [place] [address] Discharge Summary 01/12/25 1234 MR#: [id number] Acct: [id number] Name: TRAVISNAYLAJORI COLORADO Rep #:[id number] : 1955 69 From: Kal wade DO PCP: Dr. Eddi Lynn MD Status:ADM IN Location: [facility] QCI771- 1 Providers Date of Admission: 01/09/25 Date [...] is a 69-year-old male who presented to [facility] ED on 01/09/2025 with shortness of breath. Hospital course as noted below. Patient discharged back to senior care in stable condition on 01/12. 1. Acute [...] Case management followed. Patient lives in a senior care, is nonverbal at baseline. Complicated hospital course and care. Patient stable for discharge back to senior care on 01/12. Continue home Risperdal. Chronic medical [...] Profile (BMP) (Routine) Timeframe: 5 Days Facility: [facility] - Location: Laboratory Ordered By: Dr. Kal Laguna Referrals / Follow Up: Eddi Lynn MD [Primary Care Provider, Family Practice] Disposition Disposition (needs filled in before D/C Order can be placed): NonSkilled NH/Intermed Care Charges/Coding Visit Charges Inpatient E&M: 07216 Disch Hosp >30min 01/12/25 1344 <Electronically signed by Kal Laguna DO> Cosigner Signature (if applicable): CC: Dr. Kal Laguna DO; Dr. Eddi Lynn MD~ Signed [facility] Work Phone: Evaluation noteNo assessment information available [facility] Work Phone: evaluation note* Diagnosis Onset Date Resolution Status Epilepsy, unspecified, not i ntractable, without status epilepticus acute Vitamin B12 deficiency acute Vitamin D insufficiency acut e [facility] Work Phone: Evaluation note* Diagnosis Onset Date Resolution Status COVID-19 acute Fall acute Hypoxemia acute [facility] Work Phone: Evaluation note* Diagnosis Onset Date Resolution Status COVID-19 acute Fall resolved Hypoxemia resolved Epilepsy, unspecified, not i ntractable, without status epilepticus chronic Vitamin B12 deficiency resol sybil Vitamin D insufficiency reso [facility] Work Phone: evaluation note* Diagnosis Onset Date Resolution Status Epilepsy, unspecified, not i ntractable, without status epilepticus chronic Vitamin B12 deficiency resol sybil Vitamin D insufficiency reso [facility] Work Phone: Evaluation note* Diagnosis Onset Date Resolution Status Admit Date Epilepsy, unspecified, not intractable, without status epilepticus chronic November 26, 025 10:31am Vitamin B12 deficiency resolved Se ptember 2024 10:31am Vitamin D insufficiency resolved S eptember 2024 10:31am [facility] Work Phone: History and physical note Author Alice Mckeon [facility] November 04, 2022 9:04am Note Date/Time November 04, 2022 8: 55am [facility] Medical Records Department [address] [place] [address] H&P Exam - Hospitalist 11/04/22 0841 MR#: [id number] Acct: [id number] Name: TRAVISNAYLAJORI COLORADO Rep #:[id number] : 1955 67 From: Alice Mckeon DO PCP: Dr. Dean Felipe MD Status:REG E R Location: ED HPI - General General Date of Admission: 11/04/22 Date of Service: 11/04/22 Chief Complaint: Fall HPI Narrative NAYLA RING, is a 67 M who presented to the emergency department at [facility] on 11/04/2022 after sustaining a fall at his senior care. All history is taken from what EMS reported to the ED physician in the ED staff discussing with senior care staff. Patient is nonverbal at baseline. More reported that he did not appear injured to them but was unsteady on his feet while transporting him to the [facility] for transportation to the emergency [...] pending however outpatient study was positive per senior care. Initial intent was to discharge back to the senior care with oxygen per discussion with the guardian and the emergency department physician however the senior care is unable to take oxygen and therefore admission was required. [facility] Medical History Developmental non-verbal disorder Diabetes mellitus, type II Epilepsy, unspecified, not intractable, without status epilepticus HTN (hypertension) Hyperlipidemia Schizophrenia Seizure disorder Vitamin B12 deficiency Home Medications loratadine 10 mg tablet 10 mg PO DAILY 07/16/16 [History Last Taken Unknown] omega 3-ych-ztd-fish oil 300 mg-1,000 mg capsule 1 ea [...] Dr. Alice Mckeon, DO) housing: other details: [facility] Smoking Status: Never smoker Electronic Cigarette Use: [...] 80.2 H, Lymph % (Auto) 5.7 L, [place] % (Auto) 13.2 H, Eos % (Auto) [...] GFR (MDRD) Non-Af 83, BUN/Creatinine Ratio 15.7, [id number] H, Calcium 8.5 Radiology Impression Chest X-Ray [...] should be able to discharge back to senior care--> they are unable to accommodate oxygen Falls [...] with guardian Charges/Coding Visit Charges Inpatient E&M: 30340 Init Hosp L2 11/04/22 0904 <Electronically signed by Alice Mckeon DO> Cosigner Signature (if applicable): CC: Dr. Alice Mckeon DO; Dr. Dean Felipe MD~ Signed [facility] Work Phone: History and physical note Author Katie [facility] Note Date/Time January 09, 2025 6 :[address] [place] [address] Health System Medical Records Department [address] [place] [address] H&P Exam - Hospitalist 01/08/25 2346 MR#: [id number] Acct: [id number] Name: NAYLA BENNETT Rep #:[id number] : 1955 69 From: Katie Rosenbaum MD PCP: Dr. Eddi Lynn MD Status:ADM IN [facility] - General General Date [...] being admitted to be managed for hyponatremia [facility] Medical History Developmental non-verbal disorder Vitamin [...] previous surgery Social History housing: other details: [facility] Smoking Status: Never smoker Electronic Cigarette Use: [...] (Auto) 78.1 H, Lymph % (Auto) 10.5L, [place] % (Auto) 10.1 H, Eos % (Auto) [...] Clarity Clear, Urine pH 6.0, Ur Specific [place] 1.015, Urine Protein 30 H, Urine Glucose [...] in the abdomen or pelvis Reading Location: [facility] Chest X-Ray 01/08/25 21:33 IMPRESSION: 1. Suboptimal exam. Possible mild CHF and possible left lung base airspace disease. Reading Location: [facility] Assessment & Plan Assessment/Plan (1) CHF (congestive [...] from facility. Charges/Coding Visit Charges Inpatient E&M: 11524 Init Hosp L3 Procedures Hospitalists Procedures: 06054 Advncd Care Plan 30 Min 01/09/25 0656 <Electronically signed by Katie Rosenbaum MD> Cosigner Signature (if applicable): CC: Dr. Eddi Lynn MD; Dr. Katie Rosenbaum MD~ Signed [facility] Work Phone: Hospital Discharge instructionsAdditional Instructions No findings consistent with hypertensive emergency. Will increase your Norvasc to 10 mg daily from 5 mg. He was given extra dose today. Please continue to take blood pressure log and follow-up with primary care doctor [facility] Work Phone: Hospital Discharge instructionsAdditional Instructions Need to have blood pressure checked in 1 to 2 weeks.[facility] Work Phone: Hospital Discharge instructionsAdditional Instructions 1. [...] list with the severe side effect of hyponatremiaWSalem [facility] Work Phone: Hospital Discharge instructionsAdditional Instructions Start taking Lasix 40 mg daily. Please have a repeat BMP drawn in 5 to 7 days to monitor kidney function. Date of Discharge: 01/12/25[facility] Work Phone: Progress note Author Corey Pelaez [facility] Note Date/Time January 10, 2025 7 :58pm [facility] Medical Records Department [address] [place] [address] Progress Note - Hospitalist 01/09/251920 MR#: [id number] Acct: [id number] Name: NAYLA BENNETT Rep #:[id number] : 1955 69 From: Corey Pelaez DO PCP: Dr. Eddi Lynn MD Status:ADM IN Location: [place] [address] Reason for Visit Chief Complaint: hypertension Subjective [...] (Auto) 78.1 H, Lymph % (Auto) 10.5L, [place] % (Auto) 10.1 H, Eos % (Auto) [...] Clarity Clear, Urine pH 6.0, Ur Specific [place] 1.015, Urine Protein 30 H, Urine Glucose [...] (Auto) 68.2, Lymph % (Auto) 17.2 L, [place] % (Auto) 13.7 H, Eos % (Auto) [...] in the abdomen or pelvis Reading Location: [facility] Chest X-Ray 01/08/25 21:33 IMPRESSION: 1. Suboptimal exam. Possible mild CHF and possible left lung base airspace disease. Reading Location: [facility] Chest CTA 01/08/25 22:04 IMPRESSION: No demonstrated pulmonary embolism or arterial dissection. Moderate cardiomegaly. Mild bilateral pleural effusions. Passive atelectatic airspace disease of the lower lobes. Moderate interstitial pulmonary congestion. Mild alveolar pulmonary congestion. Mildly enlarged mediastinal lymph nodes with the largest measuring 1.3 cm, probably reactive. [facility] Echocardiogram 01/09/25 05:55 Interpretation Summary Normal LV [...] andbe reevaluated tomorrow, he lives in a senior care. #2 essential hypertension-patient will remain on his [...] 35 minutes Charges/Coding Visit Charges Inpatient E&M: 85452 Subs Hosp L2 01/10/251957 <Electronically signed by Corey Pelaez DO> Cosigner Signature (if applicable): CC: ~ Signed [facility] Work Phone: Progress note Author Corey Pelaez [facility] Note Date/Time January 10, 2025 8 :04pm [facility] Medical Records Department [address] [place] [address] Progress Note - Hospitalist 01/10/251999 MR#: [id number] Acct: [id number] Name: NAYLA BENNETT Rep #:[id number] : 1955 69 From: Corey Pelaez DO PCP: Dr. Eddi Lynn MD Status:ADM IN Location: [place] [address] Reason for Visit Chief Complaint: hypertension Subjective [...] 35 minutes Charges/Coding Visit Charges Inpatient E&M: 24372 Subs Hosp L2 01/10/252003 <Electronically signed by Corey Pelaez DO> Cosigner Signature (if applicable): CC: ~ Signed [facility] Work Phone: Progress note Author Corey Pelaez [facility] Note Date/Time January 11, 2025 5 :43pm [facility] Medical Records Department [address] [place] [address] Progress Note - Hospitalist 01/11/25 174 MR#: [id number] Acct: [id number] Name: TRAVISNAYLAJORI COLORADO Rep #:[id number] : 1955 69 From: Corey Pelaez DO PCP: Dr. Eddi Lynn MD Status:ADM IN Location: [place] [address]- Reason for Visit Chief Complaint: hypertension Subjective [...] consistent with small pleural effusions. Reading Location: [facility] Rhythm Strip Rhythm Strip: Sinus Rhythm Rate: [...] is on Flomax #9 hypoxia secondary to #9-swinpara-cautpjt is currently on room air Total clinical time spent by myself addressing the patient's medical issues, reviewing all of the data, and collaborating with patient's care team: 35 minutes Charges/Coding Visit Charges Inpatient E&M: 35939 Subs Hosp L2 01/11/25 1745 <Electronically signed by Corey Pelaez DO> Cosigner Signature (if applicable): CC: ~ Signed [facility] Work Phone: Reason for referral (narrative)No reason for referral information availableWSalem [facility] Work Phone: Advance Directives Advance Directive Response Recorded Date/ Time Living Will No July 16, 2016 8:19am Power of Brazing Machine Operator Helper No July 16 8:19am Advance Directive Response Recorded Date/ Time Living Will No July 27, 2021 1: 24pm Power of Brazing Machine Operator Helper No July 27, 2021 1:24pm Advance Directive Response Recorded Date/ Time Living Will No July 27, 2021 12 :24pm Power of Brazing Machine Operator Helper No July 27, 2021 12:24pm Advance Directive Response Recorded Date/ Time Name of Medical Power of Brazing Machine Operator Helper chris rock November 04, 2022 7:33am Living Will No November 04 7:33am Power of Brazing Machine Operator Helper Yes November 04 7:33am Advance Directive Response Recorded Date/ Time Name of Medical Power of Brazing Machine Operator Helper chris rock November 04, 2022 10:39am Living Will No November 04 10:39am Power of Brazing Machine Operator Helper Yes November 04 10:39am Advance Directive Response Recorded Date/ Time Living Will No November 04 9:39am Power of Brazing Machine Operator Helper Yes November 04 9:39am Advance Directive Response Recorded Date/ Time Living Will No November 04 10:39am Power of Brazing Machine Operator Helper Yes November 04 10:39am Advance Directive Response Recorded Date/ Time Living Will No November 04 10:39am Power of Brazing Machine Operator Helper Yes November 04 10:39am Living Will No May 22 8:38pm Power of Brazing Machine Operator Helper No May 22, 2024 8:38pm Advance Directive Response Recorded Date/ Time Living Will No November 04 10:39am Do you have a Healthcare Power of Brazing Machine Operator Helper? Yes November 04, 2022 10:39am Living Will No May 22 8:38pm Do you have a Healthcare Power of Brazing Machine Operator Helper? No May 22, 2024 8:38pm Advance Directive Response Recorded Date/ Time Do you have a Healthcare Power of Brazing Machine Operator Helper? Yes December 22, 2024 6:57pm Do you have a Healthcare Power of Brazing Machine Operator Helper? No December 19, 2024 12:13pm Advance Directive Response Recorded Date/ Time Do you have a Healthcare Power of Brazing Machine Operator Helper? Yes December 22, 2024 6:57pm Do you have a Healthcare Power of Brazing Machine Operator Helper? No December 30, 2024 3:52pm Do you have a Healthcare Power of Brazing Machine Operator Helper? No December 19, 2024 12:13pm Advance Directive Response Recorded Date/ Time Do you have a Healthcare Pow er of Brazing Machine Operator Helper? Yes December 22, 2024 6:57pm Do you have a Healthcare Pow er of Brazing Machine Operator Helper? No December 30, 2024 3:52pm Do you have a Healthcare Pow er of Brazing Machine Operator Helper? No December 19, 2024 12:13pm Do you have a Healthcare Pow er of Brazing Machine Operator Helper? Yes January 09, 2025 1:31am Name of Medical Power of Brazing Machine Operator Helper seth ryan January 08, 2025 6:42pm Advance Directive Response Recorded Date/ Time Do you have a Healthcare Pow er of Brazing Machine Operator Helper? Yes December 22, 2024 5:57pm Do you have a Healthcare Pow er of Brazing Machine Operator Helper? No December 30, 2024 2:52pm Do you have a Healthcare Pow er of Brazing Machine Operator Helper? No December 19, 2024 11:13am Do you have a Healthcare Pow er of Brazing Machine Operator Helper? Yes January 09, 2025 12:31am Name of Medical Power of Brazing Machine Operator Helper seth ryan January 08, 2025 5:42pm Chief [...] 2024 End: October 15, 2024 Aydee Willams CORPORATE RISK ANALYST, CORPORATE RISK ANALYST-C Attending Provider Active Start: October 15, 2024 End: October 15, 2024 Aydee Willams CORPORATE RISK ANALYST, CORPORATE RISK ANALYST-C Referring Provider Active Start: October 15, 2024 End: October 15, 2024 Team Status: Inactive Member Role/Relationship Status Lupillo Lynn MD Primary Care Provider Active St art: October 15, 2024 End: October 15, 2024 Aydee Willams CORPORATE RISK ANALYST, CORPORATE RISK ANALYST-C Attending Provider Active Start: October 15, 2024 End: October 15, 2024 Aydee Willams CORPORATE RISK ANALYST, CORPORATE RISK ANALYST-C Referring Provider Active Start: October 15, 2024 [...] 2024 End: October 15, 2024 Aydee Willams CORPORATE RISK ANALYST, CORPORATE RISK ANALYST-C Attending physician Active Start: October 15, 2024 End: October 15, 2024 Aydee Willams CORPORATE RISK ANALYST, CORPORATE RISK ANALYST-C Referring Provider Active Start: October 15, 2024 [...] 12, 2025 Dr. Aguilar Matthews [facility] Active Start: January 09, 2025 End: January 12, 2025 Dr. Kaite Rosenbaum MD Admitting physician Active Start: January [...] section and content) DATE CREATED AUTHOR 01/27/2025 [facility] FOR RECORDS PERTAINING TO PATIENTS WHO ARE [...] BE BASED ON THE PRIMARY CLINICAL RECORDS. [employer] provides no warranty or guarantee of the accuracy or completeness of information in this document.
[2025-03-23 09:05] LABS: Anion Gap 12 (7-18); BUN 20 mg/dL (4-19); BUN/Creat Ratio 15.5 RATIO (10-20); Calcium,Total 9.2 mg/dL (7.6-11.0); Carbon Dioxide 25.5 mmol/L (20.0-29.0); Chloride 103 mmol/L (96-106); Glucose 115 mg/dL (70-99); Potassium 4.2 mmol/L (3.5-5.1)
== END | disposition home or self-care (01) ==
LOC: LAB 07:22
PROVIDERS: PCP Family Medicine; Visit Provider Internal Medicine Cardiovascular Disease
DX: E11.9 Type 2 diabetes mellitus without complications (principal); I50.9 Heart failure, unspecified
CPT/HCPCS: 36415; 80048